=== PATIENT | male | born 1940 | race Caucasian/White ===

== ENCOUNTER 2018-02-15 04:30 | Emergency (ER) | payer MEDICARE, OTHER, SELFPAY ==
[2018-02-15 04:31] VITALS: BP 185/86; PULSE 69; RESP 18; TEMP 36.7; O2SAT 99; BMI 37.3
--- NOTE | 2018-02-15 04:42 | CT_ITS ---
STUDY: CT BRAIN WITHOUT CONTRAST REASON FOR EXAM: Male, 78 years old. Fall, head laceration. RADIATION DOSAGE (If Supplied By Facility): CTDIvol = ( 44.99 ) mGy, DLP = ( 745.49 ) mGycm TECHNIQUE: Transaxial CT imaging of the brain was performed without administration of intravenous contrast material. Individualized dose optimization techniques were used for this CT. COMPARISON: None. FINDINGS: Moderate left frontal scalp hematoma. Normal calvarium. Normal size ventricles and extra-axial spaces for the patient's age. Normal white matter tracts of the cerebral hemispheres. Normal basal ganglia and thalami. Normal brainstem. Normal cerebellum. There is no intracranial hemorrhage. There are no findings of an acute ischemic infarction. Normal visualized paranasal sinuses. Atherosclerotic calcification of the supraclinoid portion of the internal carotid arteries. CT/Brain/Head without Contrast IMPRESSION: No acute intracranial abnormality. Left frontal scalp hematoma. Electronically Signed: Giovanny Moody MD at 5:38 EDT , Service support ,
--- NOTE | 2018-02-15 06:04 | ED.VISSUMM ---
- ER Visit Summary Date of Service: 02/15/18 Chief Complaint: [] Scalp laceration History of Present Illness: The patient is a 78 M [] patient reportedly had a fall just prior to arrival. He denies dizziness. Reports he just lost my balance. Denies neck pain, back pain, pelvic pain. Denies extremity pain. Denies headache. 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 He has a history of end-stage renal disease on dialysis. Physical Examination: [] Afebrile, vital signs stable. 78-year-old male in no acute distress. Conversational. Examination of the head reveals a 4 cm full-thickness scalp laceration. To the left temporoparietal scalp there was a 2 cm skin avulsion that did not require repair. Neck was nontender on exam in the midline. No paraspinal tenderness. Good range of motion on exam. Back exam was negative. Cardiovascular exam was regular rate and rhythm. Lungs are clear to auscultation. Abdomen was soft nontender. Pelvis was stable. Test Results: [] CT of the head was negative. Emergency Department Course and Treatment: [] After CT head returned negative patient had the area cleaned with saline and Shur-Clens. Anesthetized locally 1% lidocaine. 6 gail were used to approximate the wound nicely. Patient tolerated the procedure well. Patient and patient's at the bedside were instructed to have gail removed in 5 days. Treatment Plan: [] Follow-up with PCP or emergency department in 5 days for staple removal. Disposition: [] Discharge, stable. Impression: [] 4 cm scalp laceration Scalp laceration staple repair by ED physician This note was generated with [employer] dictation software. It may contain incorrect words, spelling, and punctuation that were not noted in review of the chart prior to signing ED Disposition - Plan for ED Patient: Chief Complaint: Fall Referrals: Dona Santiago MD [Primary Care Provider] -
--- NOTE | 2018-02-15 06:08 | ED.DEP ---
ED Disposition - Plan for ED Patient: Disposition: Home or Assisted Living Chief Complaint: Fall Instructions: ED Prevention Fall, ED Laceration Scalp Sutr Stap Ch Referrals: Dona Santiago MD [Primary Care Provider] -
--- NOTE | 2018-02-15 06:31 | NURSING ---
wound was dressed with surgicel, nonstick, noncling wrap, aron wrap to control bleeding.
[2018-02-15 06:36] VITALS: BP 171/82; PULSE 87; RESP 18; O2SAT 96
== END 2018-02-15 06:37 | disposition home or self-care (01) ==
PROVIDERS: Emergency Provider Emergency Medicine; Family Provider Internal Medicine; PCP Internal Medicine
DX: S01.01XA Laceration without foreign body of scalp, initial encounter (principal); I12.0 Hypertensive chronic kidney disease with stage 5 chronic kidney disease or end stage renal disease; N18.6 End stage renal disease; Z99.2 Dependence on renal dialysis; Z86.711 Personal history of pulmonary embolism; Z86.718 Personal history of other venous thrombosis and embolism; Z79.01 Long term (current) use of anticoagulants; Z79.891 Long term (current) use of opiate analgesic; Z79.899 Other long term (current) drug therapy; W18.30XA Fall on same level, unspecified, initial encounter; Y93.89 Activity, other specified; Y92.89 Other specified places as the place of occurrence of the external cause; Y99.8 Other external cause status
CPT/HCPCS: 12002; 70450; 99284; A4216

== ENCOUNTER 2018-02-26 07:25 | Day surgery (SDC) | payer MEDICARE, OTHER, SELFPAY ==
[2018-02-26 07:53] VITALS: BP 129/45; PULSE 52; RESP 16; TEMP 37.1; O2SAT 100; BMI 37.2
--- NOTE | 2018-02-26 09:25 | FOR_PTH ---
PATIENT: ANSLEY OLIVAS LOC: [facility] [place] U#:[id number] AGE/SX: 78/M ROOM: RE02/26/[address]: Dr. Aleks Moore MD : [id number] BED: DIS: 02/26/2018 SPEC #: [id number] RECD: 02/26/18 13:46 STATUS: RADHA CAMRYN #: [id number] CHEN: 02/26/18 09:[address]: Aleks Moore DEPT: SURGICAL PATHOLOGY RECD BY: Charles Escalera ENTERED: 02/26/18 13:46 SP TYPE: FORESKIN OTHR DR: Dr. Dona Santiago MD Tissues: Skin of foreskin, NOS Procedures: Surgery Specimen Level III HEADER OPERATION: Cysto, circumcision, urethral dilation PRE-OP DIAGNOSIS: Phimosis and urethral stricture TISSUE SUBMITTED: Foreskin MICROSCOPIC DIAGNOSIS Foreskin: A piece of skin with focal mild chronic inflammation. SJ:damian 03/01/18 MICROSCOPIC DESCRIPTION Slides are reviewed. GROSS DESCRIPTION Received in fixative is one container labeled with the patient's name and designated foreskin. The specimen consists of an irregular piece of fonseca, wrinkled skin measuring 4.5 x 2 x 0.3 cm. No mass lesion is identified. Precision Machinist sections are submitted in one cassette. / ANGEL:damian 02/26/18 TC:3 CPT: 28962
[2018-02-26] MEDS: Cefazolin 2 GM in 0.9% Normal Saline 100 ML IV (09:46)
--- NOTE | 2018-02-26 09:54 | PCM.DC.URO ---
Discharge Diet: Light diet - advance as tolerated Discharge Activity: May Not Drive Call your doctor if your incision/area has: Continuous Slow Oozing, Sudden Increased Bleeding, Increased Pain/ Swelling, Increased Redness, Foul Smelling Discharge, Swelling at the incision site Call your doctor if you observe: Fever of 101 or Higher Instructions: Adult Circumcision Additional Instructions: resume all medications. Allergies/Adverse Reactions: Allergies Sulfa (Sulfonamide Antibiotics) Allergy (Severe, Verified 02/26/18 07:51) Hives Medications to take at Discharge Sennosides/Docusate Sodium [Docusate Sodium-Senna Tablet] 1 ea PO PRN PRN 08/07/16 Amlodipine [Norvasc] 5 mg PO DAILY 08/26/16 Dicyclomine HCl 20 mg PO TID 10/23/16 Omeprazole [Prilosec] 40 mg PO DAILY 10/23/16 Tamsulosin HCl [Flomax] 0.4 mg PO DAILY 10/23/16 Oxycodone [Oxyir] 5 mg PO Q8H PRN PRN #7 tab 10/28/16 Metoprolol Tartrate [Lopressor (beta keila)] 50 mg PO BID tab 11/03/16 Furosemide [Lasix] 20 mg PO BIDLX 02/11/17 Ondansetron HCl [Zofran] 4 mg PO PRN PRN 02/11/17 Ciprofloxacin [Cipro] 250 mg PO DAILY #10 tab 02/26/18 Hydrocodone/Acetaminophen [Mcdermott 5-325 Tablet] 1 ea PO Q4H PRN PRN 7 Days #20 tab 02/26/18 The following prescriptions were given: Hydrocodone/Acetaminophen [Mcdermott 5-325 Tablet] 1 ea PO Q4H PRN PRN 7 Days #20 tab PRN Reason: Pain Ciprofloxacin [Cipro] 250 mg PO DAILY #10 tab Primary Care Physician: Dona Santiago MD [Primary Care Provider] - Please Follow Up With: Aleks Moore MD When: ThursdayMarch 09 at 11am.
[2018-02-26] MEDS: Bupivacaine Mpf 0.5% 30 ML VIAL (10:25)
--- NOTE | 2018-02-26 10:28 | PCM.OPRPT ---
Report of Operation Date of Procedure: 02/26/18 Pre-Operative Diagnosis: Phimosis and urethral stricture bulbar severe. Post-Operative Diagnosis: Same Surgery/Procedure Performed:: Circumcision, cystoscopy, dilation of urethral stricture and placement of a Pulido catheter Description of Surgical Findings:: 78-year-old male who is on chronic dialysis and has been found to have retention of urine chronically unable to empty his bladder and now is getting chronic infections in his bladder because of this we attempted a cystoscopy in the office was found to have a very severe phimosis of the foreskin and suspected urethral stricture disease. Because of this recommended we taken to surgery for do a circumcision cystoscopy and possible dilation of the urethral strictures and Uplido placement. 78-year-old male taken back to the operating room at the smooth induction of anesthesia he was placed supine on the table. The penis and testicles were prepped and draped in usual sterile fashion infiltrated the foreskin circumferentially with Marcaine with no epi. I then did a dorsal slit on the foreskin was able to then retract the foreskin over the head of the penis for use then Betadine to clean the pink penis and some smegma around the foreskin. I then excised the foreskin dorsally. We then reapproximated the shaft skin to the subcoronal skin with stitches using 3-0 Vicryls after 4 points were fixed we then ran the circumcision all the way around the penis to complete circumcision. Then at this point the meatus was checked very tight meatus with the dilate the meatus with sounds up to 26 [place]. I then did a cystoscopy found a very pinpoint severe bulbar urethral stricture passed a wire through this and then over the wire we dilated the stricture using the Bard urology kit we used the followers to dilate the stricture from 12 [place] up to 18 [place]. I then did a cystoscopy demonstrated the severe strictures in the bulbar urethra prostate was mildly obstructive a little bit of bleeding in the bladder no tumors or stones seen the bladder very distended bladder from chronic obstruction. Then over the wire I advanced a 16 [place] tip catheter but the catheter inside the bladder leave this in for about a week and a half he will see us back for follow-up after the circumcision dilation of the strictures and at that point will remove the catheter. He will continue with his Flomax. I have asked the patient and the family to hold his Coumadin to the catheter is removed. Type of Anesthesia:: Local MAC Drains: pulido - Admit VTE Documentation VTE Present on Admission: No VTE Mechan Device Prophylaxis: SCD's VTE Pharm Prophylaxis ordered?: No Reason prophylaxis not ordered:: Treatment Not Indicated
--- NOTE | 2018-02-26 10:32 | OP.PCM_ITS ---
Report of Operation Date of Procedure: 02/26/18 Pre-Operative Diagnosis: Phimosis and urethral stricture bulbar severe. Post-Operative Diagnosis: Same Surgery/Procedure Performed:: Circumcision, cystoscopy, dilation of urethral stricture and placement of a Pulido catheter Description of Surgical Findings:: 78-year-old male who is on chronic dialysis and has been found to have retention of urine chronically unable to empty his bladder and now is getting chronic infections in his bladder because of this we attempted a cystoscopy in the office was found to have a very severe phimosis of the foreskin and suspected urethral stricture disease. Because of this recommended we taken to surgery for do a circumcision cystoscopy and possible dilation of the urethral strictures and Pulido placement. 78-year-old male taken back to the operating room at the smooth induction of anesthesia he was placed supine on the table. The penis and testicles were prepped and draped in usual sterile fashion infiltrated the foreskin circumferentially with Marcaine with no epi. I then did a dorsal slit on the foreskin was able to then retract the foreskin over the head of the penis for use then Betadine to clean the pink penis and some smegma around the foreskin. I then excised the foreskin dorsally. We then reapproximated the shaft skin to the subcoronal skin with stitches using 3-0 Vicryls after 4 points were fixed we then ran the circumcision all the way around the penis to complete circumcision. Then at this point the meatus was checked very tight meatus with the dilate the meatus with sounds up to 26 [place]. I then did a cystoscopy found a very pinpoint severe bulbar urethral stricture passed a wire through this and then over the wire we dilated the stricture using the Bard urology kit we used the followers to dilate the stricture from 12 [place] up to 18 [place]. I then did a cystoscopy demonstrated the severe strictures in the bulbar urethra prostate was mildly obstructive a little bit of bleeding in the bladder no tumors or stones seen the bladder very distended bladder from chronic obstruction. Then over the wire I advanced a 16 [place] tip catheter but the catheter inside the bladder leave this in for about a week and a half he will see us back for follow-up after the circumcision dilation of the strictures and at that point will remove the catheter. He will continue with his Flomax. I have asked the patient and the family to hold his Coumadin to the catheter is removed. Type of Anesthesia:: Local MAC Drains: pulido - Admit VTE Documentation VTE Present on Admission: No VTE Mechan Device Prophylaxis: SCD's VTE Pharm Prophylaxis ordered?: No Reason prophylaxis not ordered:: Treatment Not Indicated
[2018-02-26 10:40] VITALS: BP 120/50; BP 129/45; PULSE 68; RESP 16; TEMP 36.4; O2SAT 95
[2018-02-26 10:45] VITALS: BP 123/56; BP 129/45; PULSE 61; RESP 16; O2SAT 93
[2018-02-26 10:50] VITALS: BP 126/70; BP 129/45; PULSE 61; RESP 16; O2SAT 94
[2018-02-26 10:55] VITALS: BP 129/45; BP 149/64; PULSE 57; RESP 16; TEMP 36.6; O2SAT 98
[2018-02-26 11:49] VITALS: BP 129/45
== END 2018-02-26 11:51 | disposition home or self-care (01) ==
LOC: SDC 07:26 → AC 07:27
PROVIDERS: Family Provider Internal Medicine; PCP Internal Medicine; Visit Provider Urology
PROC: 0TJB8ZZ Inspection of Bladder, Via Natural or Artificial Opening Endoscopic (ICD-10-PCS; CPT 52000; principal; 2018-02-26 09:10)
DX: N48.29 Other inflammatory disorders of penis (principal); N47.1 Phimosis; N35.8 Other urethral stricture; N40.1 Benign prostatic hyperplasia with lower urinary tract symptoms; R33.8 Other retention of urine; I12.0 Hypertensive chronic kidney disease with stage 5 chronic kidney disease or end stage renal disease; N18.6 End stage renal disease; D64.9 Anemia, unspecified; K21.9 Gastro-esophageal reflux disease without esophagitis; B19.20 Unspecified viral hepatitis C without hepatic coma; Z99.2 Dependence on renal dialysis; Z86.718 Personal history of other venous thrombosis and embolism; Z87.891 Personal history of nicotine dependence; Z85.828 Personal history of other malignant neoplasm of skin; Z79.01 Long term (current) use of anticoagulants; Z79.899 Other long term (current) drug therapy
CPT/HCPCS: 52281; 54161; 88304; J7040; J7120; C1769; J2405

== ENCOUNTER → 2018-03-16 10:32 | Outpatient (CLI) | payer MEDICARE, OTHER, SELFPAY | PROVIDERS: Family Provider Internal Medicine; PCP Internal Medicine; Visit Provider Urology | DX: N39.0 Urinary tract infection, site not specified (principal) | CPT/HCPCS: 87086; 87088 ==

== ENCOUNTER → 2018-03-30 12:49 | Outpatient (CLI) | payer MEDICARE, OTHER, SELFPAY | PROVIDERS: Family Provider Internal Medicine; PCP Internal Medicine; Visit Provider Nurse Practitioner Adult Health | DX: R82.90 Unspecified abnormal findings in urine (principal) | CPT/HCPCS: 87077; 87086; 87088; 87186 ==

== ENCOUNTER 2018-05-25 16:01 | Observation (INO) | payer MEDICARE, OTHER, SELFPAY ==
[2018-05-25] VITALS (11 sets, daily range): BP systolic 142–159; BP diastolic 60–85; PULSE 62–70; RESP 14–95; TEMP 36.9–37.2; O2SAT 13–98; BMI 43.3; BMI 35.9
--- NOTE | 2018-05-25 16:05 | EKG12_ITS ---
Test Reason : FALL Blood Pressure : / mmHG Vent. Rate : 066 BPM Atrial Rate : 066 BPM P-R Int : 164 ms QRS Dur : 076 ms QT Int : 418 ms P-R-T Axes : -02 -14 020 degrees QTc Int : 438 ms Normal sinus rhythm with sinus arrhythmia Normal ECG Confirmed by LARRY PUCKETT, RAYRAY ([id number]), editor managing director JAMEEL PENG ([id number]) on 05/27/2018 1:53:50 PM Referred By: MEGAN Confirmed By:RAYRAY JUAREZ MD
--- NOTE | 2018-05-25 16:05 | CT_ITS ---
STUDY: CT BRAIN WITHOUT CONTRAST REASON FOR EXAM: Male, 78 years old. Stroke. Difficulty walking. RADIATION DOSAGE (If Supplied By Facility): CTDIvol = ( 44.99 ) mGy, DLP = ( 745.49 ) mGycm TECHNIQUE: Transaxial CT imaging of the brain was performed without administration of intravenous contrast material. Individualized dose optimization techniques were used for this CT. COMPARISON: February 15, 2018. FINDINGS: Normal soft tissue structures. Normal calvarium. There is mild cerebral atrophy with widening of the extra-axial spaces and ventricular dilatation. There are areas of decreased attenuation within the white matter tracts of the supratentorial brain, consistent with microvascular disease changes. There is a small remote lacunar infarct in the right external capsule. Normal left basal ganglia and bilateral thalami. Normal brainstem. Normal cerebellum. There is no intracranial hemorrhage. There are no findings of an acute ischemic infarction. Normal visualized paranasal sinuses. CT/Brain/Head without Contrast IMPRESSION: Chronic involutional changes without evidence of acute intracranial or calvarial abnormality. There is no significant interval change. There is strong concern for stroke, MRI is recommended. Electronically Signed: Sid Hernandez DO at 17:19 EDT Tel [phone], Service support ,
--- NOTE | 2018-05-25 16:10 | ED.DCSUM_ITS ---
- ER Visit Summary Date of Service: 05/25/18 Chief Complaint: Weakness History of Present Illness: The patient is a 78 M with generalized weakness that started gradually this morning. He was having increasing difficulty moving and walking, and his noted he continued to get worse throughout the day. She had to help him to the ground when he almost fell, just prior to arrival. She also noted that he was having trouble expressing himself through speech. No slurred speech. No vision changes. No facial droop. No unilateral weakness or numbness. No history of this before. He has a history of end-stage renal disease and is on hemodialysis. He is a former smoker. Physical Examination: Afebrile and vital signs unremarkable. Head and neck atraumatic. HEENT exam on room equal. Neck nontender. Heart regular. Lungs clear. Abdomen soft. Skin slightly pale. NIH stroke scale is 0. Test Results: EKG, chest x-ray, CT brain, labs, urinalysis pending. Emergency Department Course and Treatment: Patient does not meet criteria for stroke team or TPA. The generalized weakness could be a result of multiple etiologies. He does not appear to have any trauma. Workup showed pancytopenia. This is not new. Creatinine 3.52. Coags normal. Troponin normal. Chest x-ray showed no acute findings. CT head showed chronic changes. Patient had no change or deterioration in the emergency department. He is unable to walk secondary to generalized weakness. Per his , he had trouble finding words and expressing himself. I am unsure if this was truly expressive aphasia. He had no other stroke symptoms or findings. Patient was discussed with the hospitalist and will be admitted. Treatment Plan: As above Disposition: Admission Impression: 1. Generalized weakness 2. Expressive aphasia, resolved This note was generated with [employer] dictation software. It may contain incorrect words, spelling, and punctuation that were not noted in review of the chart prior to signing ED Disposition - Plan for ED Patient: Chief Complaint: Fall Referrals: Dona Santiago MD [Primary Care Provider] -
--- NOTE | 2018-05-25 16:25 | RAD_ITS ---
STUDY: X-RAY CHEST REASON FOR EXAM: Male, 78 years old. Stroke. TECHNIQUE: Single AP portable view of the chest. COMPARISON: January 06, 2017. FINDINGS: The right jugular hemodialysis catheter, present on the prior study is no longer present. There is a mildly improved inspiratory effort when compared to prior study. There is no evidence of acute infiltrate or mass. There is no demonstrated pleural abnormality. Normal size heart. Normal mediastinum and marcia. Normal visualized pulmonary arteries. Normal visualized aortic arch and descending thoracic aorta. The thoracic spine is obscured by the mediastinum. There is degenerative osteoarthritis of the bilateral shoulders. There is no demonstrated abnormality of the visualized soft tissue structures of the upper abdomen. RAD/Chest 1 View IMPRESSION: 1. No evidence of acute cardiopulmonary disease. There is resolution of the vascular congestion seen in the prior study. 2. Removal of the right jugular hemodialysis catheter since the previous examination. Electronically Signed: Sid Hernandez DO at 16:40 EDT Tel [phone], Service support ,
[2018-05-25 17:00] LABS: Bedside Glucose 116 mg/dL (70-110)
[2018-05-25 17:37] LABS: Absolute Lymphocyte Count 0.81 X10^3/ul (0.83-4.51); Absolute Neutrophil Count 2.1 X10^3/uL (2.0-7.7); Basophil# 0.01 X10^3/uL; Basophil% 0.3 % (0-1); Eosinophil# 0.07 X10^3/uL; Eosinophils% 2.1 % (0-5); Hematocrit 34.8 % (40-54); Hemoglobin 10.7 g/dl (13.0-16.5); Lymphocyte # 0.81 X10^3/ul (4.0); Mean Corp Hgb Conc 30.7 g/gl (32-36); Mean Corpuscular Hgb 28.4 pg (27.0-32.0); Mean Corpuscular Volume 92.3 fL (80-94); Monocyte# 0.42 X10^3/uL; Monocyte% 12.4 % (0-10); Neutrophil # 2.07 X10^3/uL (2.7-7.7); Neutrophil % 61.2 % (47-70); Platelet Count 102 K/mm3 (150-450); RBC Distribution Width CV 15.5 % (11.6-14.6); RBC Distribution Width SD 52.5 fl (35.1-43.9); Red Blood Count 3.77 M/mm3 (4.6-6.2); White Blood Count 3.4 K/mm3 (4.4-11.0)
[2018-05-25 17:44] LABS: POSITIVE COUNT NO; POSITIVE DIFFERENTIAL NO; POSITIVE MORPHOLOGY NO
[2018-05-25 17:45] LABS: Anion Gap 8 (5-15); BUN 15 mg/dL (7-18); BUN/Creat Ratio 4.3 RATIO (10-20); Calcium,Total 9.8 mg/dL (8.5-10.1); Chloride 101 mmol/L (98-107); Creatinine, Serum 3.52 mg/dL (0.70-1.30); EST Glomerular Filtration Rate 18 mL/min (>60); Est Glom Filt Rate - Afr Amer 22 mL/min (>60); Estimated Creatinine Clearance 12.59 ml/min; Glucose 118 mg/dL (74-106); Potassium 3.8 mmol/L (3.5-5.1); Sodium Level 138 mmol/L (136-145)
[2018-05-25 17:47] LABS: International Normalized Ratio 1.2
[2018-05-25 17:48] LABS: Partial Thromboplast Time 29.6 Seconds (24.1-36.2)
--- NOTE | 2018-05-25 19:54 | NURSING ---
Called ER district captain Erica at this time to inform that PCU is ready for admission at 1953
--- NOTE | 2018-05-25 20:09 | NURSING ---
STRAIGHT CATH ATTEMPTED; UNABLE TO PASS PROSTATE. PT IS ON DIALYSIS AND URINATED PRIOR TO ED ARRIVAL.
--- NOTE | 2018-05-25 20:34 | PCM.HP.STD ---
Problem List (1) Generalized weakness Status: Acute (2) Recurrent falls Status: Acute (3) Transient expressive aphasia Status: Acute (4) ESRD (end stage renal disease) Status: Acute (5) DVT of bilateral internal jugular veins Status: Acute (6) Morbid obesity Status: Chronic (7) Chronic renal disease, stage IV Status: Chronic (8) Benign prostatic hypertrophy Status: Chronic (9) Hypertension Status: Chronic (10) Nephrotic syndrome Status: Chronic History of Present Illness Date of Admission: 05/25/18 Chief Complaint: Fall and expresses aphasia The patient is a 78 year old M with multiple comorbidities as mentioned above including ESRD on hemodialysis, Thursday, and Thursday by Dr. Cabrera was brought into ER by EMS for generalized weakness, fall and transient aphasia as per the . He was trying to go to bathroom but he slid on walker and supported by on the floor. He was not able to lift his legs. At that time, was not able to express himself but was able to hear as per the . he denies headache, loss of vision, difficulty in writing or reading but had transient blurring of vision. Denies any previous history of GA, stroke, or chronic lung disease. [] In ED, his vitals were stable. EKG shows normal sinus rhythm at 66 bpm with sinus arrhythmia. Previous EKG of November 2016 was similar with PVCs and PACs. In ED, CT had does not show acute change. Chest x-ray no evidence of acute cardiopulmonary disease. Past Medical History Past Medical History (Chronic Problems): Chronic Problems Morbid obesity (Chronic) Chronic renal disease, stage IV (Chronic) Benign prostatic hypertrophy (Chronic) Hypertension (Chronic) Nephrotic syndrome (Chronic) Medical History: Medical History ESRD (end stage renal disease) (Acute) N18.6 DVT of bilateral internal jugular veins (Acute) Morbid obesity (Chronic) E66.01 Chronic renal disease, stage IV (Chronic) N18.4 Benign prostatic hypertrophy (Chronic) N40.0 Hypertension (Chronic) I10 Nephrotic syndrome (Chronic) N04.9 Allergies Sulfa (Sulfonamide Antibiotics) Allergy (Severe, Verified 02/26/18 07:51) Hives Home Medications: Ambulatory Orders Medication Instructions Recorded Sennosides/Docusate Sodium 1 ea PO PRN PRN 08/07/16 [Docusate Sodium-Senna Tablet] Dicyclomine HCl 20 mg PO TIDCM 10/23/16 Omeprazole [Prilosec] 20 mg PO DAILY 10/23/16 Tamsulosin HCl [Flomax] 0.4 mg PO BID 10/23/16 Oxycodone [Oxyir] 5 mg PO Q8H PRN PRN #7 tab 10/28/16 Metoprolol Tartrate [Lopressor 50 mg PO BID tab 11/03/16 (beta keila)] Surgical History: Surgical History (Last Updated 02/23/18 @ 15:41 by Kati Dorsey) Presence of surgically created arteriovenous shunt for hemodialysis Z99.2 LUE Surgical History: colectomy - bowel obstruction-remote Smoking Status: Former smoker - *Family History Maternal History Items: No pertinent history Paternal History Items: No pertinent history Review of Systems Constitutional: Denies: Chills, Fever, Weight Change HEENT: Denies: Head Aches, Sinus Congestion, Sinus Drainage Cardiovascular: Denies: Chest Pain, Palpitations Respiratory: Denies: Cough, Shortness of breath at rest, Sputum production Gastrointestinal: Denies: Abdominal Pain, Nausea, Vomiting Genitourinary: Denies: Dysuria Musculoskeletal: Denies: Joint Pain, Joint Tenderness Skin: Denies: Rash, Wounds Neurological: Reports: Balance problems, Blurred vision, Change in Speech, Confusion, Incoordination. Denies: Focal weakness, Numbness, Tingling Psychiatric: Denies: Anxiety, Depression, Homicidal Ideations, Suicidal Ideations Hematologic/ Lymphatic: Denies: Easy Bruising, Easy Bleeding VTE Information - Inpt Only VTE Present on Admission: No VTE Mechan Device Prophylaxis: SCD's VTE Pharm Prophylaxis ordered?: Yes Patient Problems: Active and Suspected Problems Generalized weakness (Acute) Recurrent falls (Acute) Transient expressive aphasia (Acute) - Physical Exam General: Alert, Oriented x3, Cooperative HEENT: Atraumatic, PERRLA, EOMI, Normocephalic Neck: Supple, No JVD, Negative Carotid Bruits Lungs: Clear to auscultation, Normal air movement Cardiovascular: Regular rate, Normal S1, Normal S2, No murmurs Abdomen: Bowel Sounds Present, Soft, Non Tender, Non-Distended Extremities: No edema, Capillary Refill Less than 3 Seconds Skin: No rashes, No breakdown Musculoskeletal: No Tenderness to Palpation of Joints or Extremities, Arthritic Changes Neurological: Cranial nerves II-XII grossly intact, - - Muscle strength 4 x 5 in both lower extremities. NIH stroke scale 2, slight weakness in both lower extremities. No facial droop. No dysarthria or aphasia. Psych/Mental Status: Normal Affect, Appropriate Vital Signs Temp Pulse Resp BP Pulse Ox 99.0 F 63 18 148/68 H 95 05/25/18 16:02 05/25/18 20:00 05/25/18 20:00 05/25/18 20:00 05/25/18 20:00 Oxygen Delivery Method Room Air Weight: 229 lb 4.492 oz Body Mass Index (BMI) 43.3 Finger Stick Blood Glucose 116 Laboratory Tests Past 24 Hrs 05/25/18 05/25/18 05/25/18 16:40 16:40 16:40 WBC 3.4 L RBC 3.77 L Hgb 10.7 L Hct 34.8 L MCV 92.3 MCH 28.4 MCHC 30.7 L RDW 15.5 H RDW Differential 52.5 H Plt Count 102 L MPV 9.0 Immature Gran % (Auto) 0.000 Neut % (Auto) 61.2 Lymph % (Auto) 24.0 Walworth % (Auto) 12.4 H Eos % (Auto) 2.1 Baso % (Auto) 0.3 Absolute Neuts (auto) 2.1 Absolute Lymphs (auto) 0.81 L Total Counted Not Reportable PT 15.0 H INR 1.2 APTT 29.6 Sodium 138 Potassium 3.8 Chloride 101 Carbon Dioxide 29.0 Anion Gap 8 BUN 15 Creatinine 3.52 H Estim Creat Clear Calc 12.59 Est GFR (MDRD) Af Amer 22 L Est GFR (MDRD) Non-Af 18 L BUN/Creatinine Ratio 4.3 L Glucose 118 H Calcium 9.8 Troponin I < 0.015 POC Glucose 05/25/18 16:57 POC Glucose 116 H Assessment/Plan All Active Problems Generalized weakness (Acute) Recurrent falls (Acute) Transient expressive aphasia (Acute) ESRD (end stage renal disease) (Acute) DVT of bilateral internal jugular veins (Acute) he patient is a 78 year old M with multiple comorbidities as mentioned above including ESRD on hemodialysis, Thursday, and Thursday by Dr. Cabrera was brought into ER by EMS for generalized weakness, fall and transient aphasia as per the . He was trying to go to bathroom but he slid on walker and supported by on the floor. He was not able to lift his legs. At that time, was not able to express himself but was able to hear as per the . he denies headache, loss of vision, difficulty in writing or reading but had transient blurring of vision. Denies any previous history of GA, stroke, or chronic lung disease. [] In ED, his vitals were stable. EKG shows normal sinus rhythm at 66 bpm with sinus arrhythmia. Previous EKG of November 2016 was similar with PVCs and PACs. In ED, CT had does not show acute change. Chest x-ray no evidence of acute cardiopulmonary disease. 1. Generalized weakness, mainly bilateral lower extremity weakness and transient expressive aphasia, rule out TIA/stroke: Patient is being admitted on PCU. Stroke workup including MRI brain, carotid Doppler and echo ordered. PT, OT and speech evaluation. Neurology evaluation tomorrow a.m. If MRI is positive of a stroke, can have CT angiogram of head and neck but will need dialysis afterwards. BP and glucose control as per stroke guidelines. Currently controlled. CRP and A1c tomorrow a.m. 2. ESRD on hemodialysis, Thursday and Thursday. Electrolytes within normal limit. Can have outpatient dialysis as per schedule if he is discharged prior to . BMP tomorrow a.m. 3. Mild leukopenia, anemia of chronic disease probably due to ESRD and mild thrombocytopenia: Follow-up CBC tomorrow a.m. If hemoglobin or platelet count drops, discontinue heparin subcutaneous. Folic acid and B12 ordered. CBC ordered for tomorrow a.m. Hypertension, nephrotic syndrome leading to ESRD on hemodialysis, morbid obesity and history of DVT of bilateral internal jugular vein probably due to hemodialysis catheter in October 2016: Home medication reconciliation done. DVT prophylaxis: On heparin 5000 units subcu units twice daily, started from tomorrow a.m. and bilateral SCDs. This note was generated with [employer] dictation software. Every effort was made to ensure accuracy, however computerized nurse sane mistakes may persist. Laboratory Results 05/25/18 16:40: WBC 3.4 L, RBC 3.77 L, Hgb 10.7 L, Hct 34.8 L, MCV 92.3, MCH 28.4, MCHC 30.7 L, RDW 15.5 H, RDW Differential 52.5 H, Plt Count 102 L, MPV 9.0, Immature Gran % (Auto) 0.000, Neut % (Auto) 61.2, Lymph % (Auto) 24.0, Walworth % (Auto) 12.4 H, Eos % (Auto) 2.1, Baso % (Auto) 0.3, Absolute Neuts (auto) 2.1, Absolute Lymphs (auto) 0.81 L, Total Counted Not Reportable 05/25/18 16:40: PT 15.0 H, INR 1.2, APTT 29.6 05/25/18 16:40: Sodium 138, Potassium 3.8, Chloride 101, Carbon Dioxide 29.0, Anion Gap 8, BUN 15, Creatinine 3.52 H, Estim Creat Clear Calc 12.59, Est GFR (MDRD) Af Amer 22 L, Est GFR (MDRD) Non-Af 18 L, BUN/Creatinine Ratio 4.3 L, Glucose 118 H, Calcium 9.8, Troponin I < 0.015 05/25/18 16:57: POC Glucose 116 H Clinical Impression(s) from Imaging Studies Brain CT 05/25/18 16:05 IMPRESSION: Chronic involutional changes without evidence of acute intracranial or calvarial abnormality. There is no significant interval change. There is strong concern for stroke, MRI is recommended. Chest X-Ray 05/25/18 16:25 IMPRESSION: 1. No evidence of acute cardiopulmonary disease. There is resolution of the vascular congestion seen in the prior study. 2. Removal of the right jugular hemodialysis catheter since the previous examination. Code Visit Inpatient E&M: 02947 Init Hosp L3
--- NOTE | 2018-05-25 20:36 | MRI_ITS ---
STUDY: MRI BRAIN WITHOUT CONTRAST REASON FOR EXAM: Male, 78 years old. tia, generalized weakness. TECHNIQUE: Standardized multiplanar fat and water weighted pulse sequences were obtained. COMPARISON: None. FINDINGS: There is mild cerebral atrophy with widening of the extra-axial spaces and ventricular dilatation. There are multiple white matter hyperintensities, distributed throughout the deep white matter tracts of the cerebral hemispheres, consistent with moderate chronic white matter ischemic changes. Normal bilateral basal ganglia. Normal thalami. There is no extra-axial fluid accumulation. Normal flow voids within the major intracranial circulation suggesting patency by spin echo criteria. Normal sella turcica, pituitary gland, infundibular stalk, optic chiasm and hypothalamus. Normal tectal plate and pineal gland. Normal midbrain, rico and medulla. Normal cerebellum. Normal basal cisterns. There is bilateral mastoid fluid. MRI/Brain without Contrast IMPRESSION: No acute intracranial abnormality. Moderate involutional changes. Electronically Signed: Cleo Flores MD at 11:38 EDT Tel , Service support ,
--- NOTE | 2018-05-25 20:50 | HP.PCM_ITS ---
Problem List (1) Generalized weakness Status: Acute (2) Recurrent falls Status: Acute (3) Transient expressive aphasia Status: Acute (4) ESRD (end stage renal disease) Status: Acute (5) DVT of bilateral internal jugular veins Status: Acute (6) Morbid obesity Status: Chronic (7) Chronic renal disease, stage IV Status: Chronic (8) Benign prostatic hypertrophy Status: Chronic (9) Hypertension Status: Chronic (10) Nephrotic syndrome Status: Chronic History of Present Illness Date of Admission: 05/25/18 Chief Complaint: Fall and expresses aphasia The patient is a 78 year old M with multiple comorbidities as mentioned above including ESRD on hemodialysis, Thursday, and Thursday by Dr. Cabrera was brought into ER by EMS for generalized weakness, fall and transient aphasia as per the . He was trying to go to bathroom but he slid on walker and supported by on the floor. He was not able to lift his legs. At that time , was not able to express himself but was able to hear as per the . he denies headache, loss of vision, difficulty in writing or reading but had transient blurring of vision. Denies any previous history of NV, stroke, or chronic lung disease. [] In ED, his vitals were stable. EKG shows normal sinus rhythm at 66 bpm with sinus arrhythmia. Previous EKG of November 2016 was similar with PVCs and PACs. In ED, CT had does not show acute change. Chest x-ray no evidence of acute cardiopulmonary disease. Past Medical History Past Medical History (Chronic Problems): Chronic Problems Morbid obesity (Chronic) Chronic renal disease, stage IV (Chronic) Benign prostatic hypertrophy (Chronic) Hypertension (Chronic) Nephrotic syndrome (Chronic) Medical History: Medical History ESRD (end stage renal disease) (Acute) N18.6 DVT of bilateral internal jugular veins (Acute) Morbid obesity (Chronic) E66.01 Chronic renal disease, stage IV (Chronic) N18.4 Benign prostatic hypertrophy (Chronic) N40.0 Hypertension (Chronic) I10 Nephrotic syndrome (Chronic) N04.9 Allergies Sulfa (Sulfonamide Antibiotics) Allergy (Severe, Verified 02/26/18 07:51) Hives Home Medications: Ambulatory Orders Medication Instructions Recorded Sennosides/Docusate Sodium 1 ea PO PRN PRN 08/07/16 [Docusate Sodium-Senna Tablet] Dicyclomine HCl 20 mg PO TIDCM 10/23/16 Omeprazole [Prilosec] 20 mg PO DAILY 10/23/16 Tamsulosin HCl [Flomax] 0.4 mg PO BID 10/23/16 Oxycodone [Oxyir] 5 mg PO Q8H PRN PRN #7 tab 10/28/16 Metoprolol Tartrate [Lopressor 50 mg PO BID tab 11/03/16 (beta keila)] Surgical History: Surgical History (Last Updated 02/23/18 @ 15:41 by Kati Dorsey) Presence of surgically created arteriovenous shunt for hemodialysis Z99.2 LUE Surgical History: colectomy - bowel obstruction-remote Smoking Status: Former smoker - *Family History Maternal History Items: No pertinent history Paternal History Items: No pertinent history Review of Systems Constitutional: Denies: Chills, Fever, Weight Change HEENT: Denies: Head Aches, Sinus Congestion, Sinus Drainage Cardiovascular: Denies: Chest Pain, Palpitations Respiratory: Denies: Cough, Shortness of breath at rest, Sputum production Gastrointestinal: Denies: Abdominal Pain, Nausea, Vomiting Genitourinary: Denies: Dysuria Musculoskeletal: Denies: Joint Pain, Joint Tenderness Skin: Denies: Rash, Wounds Neurological: Reports: Balance problems, Blurred vision, Change in Speech, Confusion, Incoordination. Denies: Focal weakness, Numbness, Tingling Psychiatric: Denies: Anxiety, Depression, Homicidal Ideations, Suicidal Ideations Hematologic/ Lymphatic: Denies: Easy Bruising, Easy Bleeding VTE Information - Inpt Only VTE Present on Admission: No VTE Mechan Device Prophylaxis: SCD's VTE Pharm Prophylaxis ordered?: Yes Patient Problems: Active and Suspected Problems Generalized weakness (Acute) Recurrent falls (Acute) Transient expressive aphasia (Acute) - Physical Exam General: Alert, Oriented x3, Cooperative HEENT: Atraumatic, PERRLA, EOMI, Normocephalic Neck: Supple, No JVD, Negative Carotid Bruits Lungs: Clear to auscultation, Normal air movement Cardiovascular: Regular rate, Normal S1, Normal S2, No murmurs Abdomen: Bowel Sounds Present, Soft, Non Tender, Non-Distended Extremities: No edema, Capillary Refill Less than 3 Seconds Skin: No rashes, No breakdown Musculoskeletal: No Tenderness to Palpation of Joints or Extremities, Arthritic Changes Neurological: Cranial nerves II-XII grossly intact, - - Muscle strength 4 x 5 in both lower extremities. NIH stroke scale 2, slight weakness in both lower extremities. No facial droop. No dysarthria or aphasia. Psych/Mental Status: Normal Affect, Appropriate Vital Signs Temp Pulse Resp BP Pulse Ox 99.0 F 63 18 148/68 H 95 05/25/18 16:02 05/25/18 20:00 05/25/18 20:00 05/25/18 20:00 05/25/18 20:00 Oxygen Delivery Method Room Air Weight: 229 lb 4.492 oz Body Mass Index (BMI) 43.3 Finger Stick Blood Glucose 116 Laboratory Tests Past 24 Hrs 05/25/18 05/25/18 05/25/18 16:40 16:40 16:40 WBC 3.4 L RBC 3.77 L Hgb 10.7 L Hct 34.8 L MCV 92.3 MCH 28.4 MCHC 30.7 L RDW 15.5 H RDW Differential 52.5 H Plt Count 102 L MPV 9.0 Immature Gran % (Auto) 0.000 Neut % (Auto) 61.2 Lymph % (Auto) 24.0 Norman % (Auto) 12.4 H Eos % (Auto) 2.1 Baso % (Auto) 0.3 Absolute Neuts (auto) 2.1 Absolute Lymphs (auto) 0.81 L Total Counted Not Reportable PT 15.0 H INR 1.2 APTT 29.6 Sodium 138 Potassium 3.8 Chloride 101 Carbon Dioxide 29.0 Anion Gap 8 BUN 15 Creatinine 3.52 H Estim Creat Clear Calc 12.59 Est GFR (MDRD) Af Amer 22 L Est GFR (MDRD) Non-Af 18 L BUN/Creatinine Ratio 4.3 L Glucose 118 H Calcium 9.8 Troponin I < 0.015 POC Glucose 05/25/18 16:57 POC Glucose 116 H Assessment/Plan All Active Problems Generalized weakness (Acute) Recurrent falls (Acute) Transient expressive aphasia (Acute) ESRD (end stage renal disease) (Acute) DVT of bilateral internal jugular veins (Acute) he patient is a 78 year old M with multiple comorbidities as mentioned above including ESRD on hemodialysis, Thursday, and Thursday by Dr. Cabrera was brought into ER by EMS for generalized weakness, fall and transient aphasia as per the . He was trying to go to bathroom but he slid on walker and supported by on the floor. He was not able to lift his legs. At that time , was not able to express himself but was able to hear as per the . he denies headache, loss of vision, difficulty in writing or reading but had transient blurring of vision. Denies any previous history of NV, stroke, or chronic lung disease. [] In ED, his vitals were stable. EKG shows normal sinus rhythm at 66 bpm with sinus arrhythmia. Previous EKG of November 2016 was similar with PVCs and PACs. In ED, CT had does not show acute change. Chest x-ray no evidence of acute cardiopulmonary disease. 1. Generalized weakness, mainly bilateral lower extremity weakness and transient expressive aphasia, rule out TIA/stroke: Patient is being admitted on PCU. Stroke workup including MRI brain, carotid Doppler and echo ordered. PT, OT and speech evaluation. Neurology evaluation tomorrow a.m. If MRI is positive of a stroke, can have CT angiogram of head and neck but will need dialysis afterwards. BP and glucose control as per stroke guidelines. Currently controlled. CRP and A1c tomorrow a.m. 2. ESRD on hemodialysis, Thursday and Thursday. Electrolytes within normal limit. Can have outpatient dialysis as per schedule if he is discharged prior to . BMP tomorrow a.m. 3. Mild leukopenia, anemia of chronic disease probably due to ESRD and mild thrombocytopenia: Follow-up CBC tomorrow a.m. If hemoglobin or platelet count drops, discontinue heparin subcutaneous. Folic acid and B12 ordered. CBC ordered for tomorrow a.m. Hypertension, nephrotic syndrome leading to ESRD on hemodialysis, morbid obesity and history of DVT of bilateral internal jugular vein probably due to hemodialysis catheter in October 2016: Home medication reconciliation done. DVT prophylaxis: On heparin 5000 units subcu units twice daily, started from tomorrow a.m. and bilateral SCDs. This note was generated with Zuldi dictation software. Every effort was made to ensure accuracy, however computerized manager commercial real estate mistakes may persist. Laboratory Results 05/25/18 16:40: WBC 3.4 L, RBC 3.77 L, Hgb 10.7 L, Hct 34.8 L, MCV 92.3, MCH 28.4, MCHC 30.7 L, RDW 15.5 H, RDW Differential 52.5 H, Plt Count 102 L, MPV 9.0 , Immature Gran % (Auto) 0.000, Neut % (Auto) 61.2, Lymph % (Auto) 24.0, Norman % (Auto) 12.4 H, Eos % (Auto) 2.1, Baso % (Auto) 0.3, Absolute Neuts (auto) 2.1, Absolute Lymphs (auto) 0.81 L, Total Counted Not Reportable 05/25/18 16:40: PT 15.0 H, INR 1.2, APTT 29.6 05/25/18 16:40: Sodium 138, Potassium 3.8, Chloride 101, Carbon Dioxide 29.0, Anion Gap 8, BUN 15, Creatinine 3.52 H, Estim Creat Clear Calc 12.59, Est GFR ( MDRD) Af Amer 22 L, Est GFR (MDRD) Non-Af 18 L, BUN/Creatinine Ratio 4.3 L, Glucose 118 H, Calcium 9.8, Troponin I < 0.015 05/25/18 16:57: POC Glucose 116 H Clinical Impression(s) from Imaging Studies Brain CT 05/25/18 16:05 IMPRESSION: Chronic involutional changes without evidence of acute intracranial or calvarial abnormality. There is no significant interval change. There is strong concern for stroke, MRI is recommended. Chest X-Ray 05/25/18 16:25 IMPRESSION: 1. No evidence of acute cardiopulmonary disease. There is resolution of the vascular congestion seen in the prior study. 2. Removal of the right jugular hemodialysis catheter since the previous examination. Code Visit Inpatient E&M: 53871 Init Hosp L3
[2018-05-25] MEDS: Aspirin 325 MG Tablet PO (20:55)
[2018-05-25 22:17] LABS: AST(SGOT) 62 U/L (15-37); Alanine Aminotransfer ALT/SGPT 74 U/L (16-61); Albumin, Serum 2.4 g/dL (3.2-5.0); Alkaline Phosphatase 126 U/L (45-117); Bilirubin, Direct 0.37 mg/dL (0.00-0.30); Globulin 4.1 g/dL (2.2-4.2); Protein, Total 6.5 g/dL (6.4-8.2); Thyroid Stim Hormone (TSH) 2.84 uIU/mL (0.358-3.74)
[2018-05-25] MEDS: Famotidine 20 MG Tablet PO (23:11)
[2018-05-25] MEDS: Metoprolol Tartrate 50 MG Tablet PO (23:11)
[2018-05-25] MEDS: Tamsulosin HCl 0.4 MG Capsule PO (23:11)
[2018-05-25 23:20] LABS: Bedside Glucose 98 mg/dL (70-110)
[2018-05-26] VITALS (10 sets, daily range): BP systolic 120–156; BP diastolic 59–70; PULSE 51–59; RESP 18–20; TEMP 36.5–36.9; O2SAT 95–99; BMI 35.9
[2018-05-26 04:50] LABS: Mucous, Urine 0 SEEN /hpf (<or=2+)
--- NOTE | 2018-05-26 05:55 | CDU_ITS ---
Reason For Study: TIA Rt. Velocities/BP Lt. Velocities/BP Prox CCA 70.9/12.9 cm/sec. Prox CCA 70.9/10.0 cm/sec. Mid CCA 65.1/8.8 cm/sec. Mid CCA 65.1/14.1 cm/sec. Dist CCA 62.1/10.6 cm/sec. Dist CCA 58.0/11.1 cm/sec. Prox ICA 89.7/15.2 cm/sec. Prox ICA 62.7/12.9 cm/sec. Mid ICA 79.3/15.2 cm/sec. Mid ICA 68.6/16.4 cm/sec. Dist ICA 68.6/12.9 cm/sec. Dist ICA 117.0/24.0 cm/sec. Rt. ICA/CCA = 1.4. Lt. ICA/CCA = 1.8. Prox ECA 92.0/5.9 cm/sec. Prox ECA 73.3/6.5 cm/sec. Rt. Vert. 68.6/12.9 cm/sec. Lt. Vert. 50.4/11.7 cm/sec. Right Extracranial There is heterogeneous, smooth atherosclerotic plaque noted in the right common carotid artery. There is heterogeneous, irregular atherosclerotic plaque noted in the right internal carotid artery. The atherosclerotic plaque causes acoustic shadowing. There is heterogeneous, smooth atherosclerotic plaque noted in the right external carotid artery. Antegrade flow is noted in the right vertebral artery. Left Extracranial There is heterogeneous, irregular atherosclerotic plaque noted in the left common carotid artery. There is no significant atherosclerotic plaque noted in the left internal carotid artery. There is intimal thickening but no significant atherosclerotic plaque noted in the left external carotid artery. Antegrade flow is noted in the left vertebral artery. Procedure Carotid Duplex 80496. The study was technically difficult. Exam performed portable in patient room. Interpretation Summary Minimal irregular plague at the proximal right internal carotid with <50% stenosis. No significant plague at the proximal left internal carotid with <50% stenosis. Normal flow bilateral external carotids Patent and antegrade vertebrals bilaterally Ordering Physician: Artur Reddy Referring Physician: Dona Santiago M.D. Performed By: Kendra Aponte RVT
[2018-05-26 06:00] LABS: Hematocrit 32.7 % (40-54); Hemoglobin 10.5 g/dl (13.0-16.5); Mean Corp Hgb Conc 32.1 g/gl (32-36); Mean Corpuscular Hgb 29.8 pg (27.0-32.0); Mean Corpuscular Volume 92.9 fL (80-94); Platelet Count 99 K/mm3 (150-450); RBC Distribution Width CV 15.3 % (11.6-14.6); RBC Distribution Width SD 49.5 fl (35.1-43.9); Red Blood Count 3.52 M/mm3 (4.6-6.2); White Blood Count 3.2 K/mm3 (4.4-11.0)
[2018-05-26 06:07] LABS: Color, Urine Yellow (Yellow); Glucose, Dipstick Normal (Normal); Ketone-Dipstick Negative (Negative); Leukocyte Esterase-Dipstick 500 /ul (Negative); Nitrite-Dipstick Negative (Negative); Occult Blood-Urine 250 /ul (Negative); Protein-Dipstick 500 mg/dl (Negative); Urine Bilirubin Dipstick Negative (Negative); Urine Clarity Turbid (Clear); Urine Urobilinogen Normal (Normal)
[2018-05-26 06:09] LABS: Bacteria 1+ /hpf (None Seen); Red Blood Cells-Urine 0-5 SEEN /hpf (0-5); Squamous Epithelial Cells - UA 0-5 SEEN /hpf (0-5); White Blood Cells 50-100 SEEN /hpf (0-5)
[2018-05-26 06:09] LABS: Scan Indicated on CBC? Y/N NO
[2018-05-26 06:29] LABS: Anion Gap 6 (5-15); BUN 19 mg/dL (7-18); BUN/Creat Ratio 5.1 RATIO (10-20); CRP 4.33 mg/L (0.0-3.0); Chloride 103 mmol/L (98-107); Cholesterol 81 mg/dL (200); Creatinine, Serum 3.72 mg/dL (0.70-1.30); EST Glomerular Filtration Rate 17 mL/min (>60); Est Glom Filt Rate - Afr Amer 20 mL/min (>60); Estimated Creatinine Clearance 11.91 ml/min; Glucose 87 mg/dL (74-106); High Density Lipoprotein 26 mg/dL; Potassium 3.7 mmol/L (3.5-5.1); Sodium Level 138 mmol/L (136-145); Triglycerides 81 mg/dL; Very Low Density Lipoprotein 16 mg/dL (5-40)
[2018-05-26 07:00] LABS: Bedside Glucose 88 mg/dL (70-110)
[2018-05-26 07:49] LABS: Hemoglobin A1c 4.2 % (4.2-6.3)
[2018-05-26] MEDS: Aspirin 325 MG Tablet PO (08:22)
[2018-05-26] MEDS: Dicyclomine 10 MG Capsule 20 MG PO ×2 (08:22→12:18)
[2018-05-26] MEDS: Glucerna Shake 120 ML LIQUID PO ×2 (08:22→12:18)
[2018-05-26 08:24] LABS: Vitamin B12 277 pg/mL (211-911)
--- NOTE | 2018-05-26 09:32 | CASEMGMT ---
SW stopped in to talk with patient. He said he had to use the restroom. SW assisted him with using call light. SW will check back with him a little later. Kaela TUCKER MSW
[2018-05-26] MEDS: Heparin Injection (Vial) 5,000 UNIT/ML VIAL 5000 UNIT SC (09:52)
[2018-05-26] MEDS: Tamsulosin HCl 0.4 MG Capsule PO (09:52)
[2018-05-26] MEDS: Famotidine 20 MG Tablet PO (09:53)
[2018-05-26] MEDS: Pantoprazole Sodium 20 MG Tablet PO (09:53)
[2018-05-26] MEDS: Atorvastatin Calcium 80 MG Tablet PO (09:53)
[2018-05-26] MEDS: Metoprolol Tartrate 50 MG Tablet PO (10:51)
[2018-05-26 11:35] LABS: Bedside Glucose 131 mg/dL (70-110)
--- NOTE | 2018-05-26 11:40 | NURSING ---
confirmed with , pt has dialysis MWF
--- NOTE | 2018-05-26 12:38 | CASEMGMT ---
CM INITIAL ASSESSMENT: Patient's is present. Patient agrees for to assist with interview. Home: Patient lives in a mobile home with his . There are four steps into the home, with railing present. HHS/Aides: Denies. states they do hire a cleaning lady. Patient's helps with all of his needs. Patient was a resident at [facility] last year and had home health afterwards. Patient is unsure which agency was used. They would prefer [facility], if home health is recommended. Patient states adamantly that he will not go to a detention, if recommended. DME: Patient uses a walker. He has a cane and wheelchair available as well. Home Oxygen: Denies home oxygen. Patient's states, He only wears oxygen during dialysis. [facility] Advance Directives: Yes, verified on e-chart. Patient's , Phyllis Mccullough, is medical POA. PCP: Dona Santiago Specialists: Dr. Cabrera, Dr. Moore Hemodialysis: [facility] on //. Patient's states the patient uses [facility] for transportation to and from dialysis. They privately pay for this service. Patient's takes him to his doctor appointments. DC Plan: Home. CM will follow for therapy recommendations regarding post-discharge needs. If home health therapy is recommended, patient would prefer to use [facility].
--- NOTE | 2018-05-26 14:12 | PCM.CONS.GEN ---
Problem List (1) Generalized weakness Status: Acute Reason for Consult Date of Consultation: 05/26/18 Reason for Consultation: AMS History of Present Illness: The patient is a 78 year old CM with PMH HTN, ESRD on HD, nephrotic syndrome, ? H/O Stroke, H/O DVT both Internal jugular vein, morbid obesity admitted with generalized weakness. History is obtained from patient and his as well as medical records. Per he was coming out of the bathroom yesterday (05/25/18), was walking very slowly with walker and slid down, had a fall, no LOC or head injury and then did not speak anything at all, started speaking again when the squad came per . Denies any COATES, visual disturbances, sensory loss or focal motor weakness. At present patient is not oriented to time, but per is almost back to his baseline, denies any neck pain, low back pain, denies frequent falls, per has fallen about twice in the last 6 months, does not drive and does need assistance for his activity of daily living. Per he was on Coumadin for DVT of internal jugular vein but was taken off by his senior php web developer about 2 months ago since he was bruising a lot, is not on ASA at baseline. MRI brain done on admission reported nothing acute. Labs reviewed: UA: turbid, LE -500 H, urine WBC-50-100, bacteria +1, AST/ALT 62/74 H, CRP-4.33, Na-138, K-3.7, creatinine-3.72, WBC-3.2, Plt count-99, Hb-10.5. Past Medical History Past Medical History (Chronic Problems): Chronic Problems Morbid obesity (Chronic) Chronic renal disease, stage IV (Chronic) Benign prostatic hypertrophy (Chronic) Hypertension (Chronic) Nephrotic syndrome (Chronic) Medical History: Medical History ESRD (end stage renal disease) (Acute) N18.6 DVT of bilateral internal jugular veins (Acute) Morbid obesity (Chronic) E66.01 Chronic renal disease, stage IV (Chronic) N18.4 Benign prostatic hypertrophy (Chronic) N40.0 Hypertension (Chronic) I10 Nephrotic syndrome (Chronic) N04.9 Allergies Sulfa (Sulfonamide Antibiotics) Allergy (Severe, Verified 02/26/18 07:51) Hives Home Medications: Ambulatory Orders Medication Instructions Recorded Sennosides/Docusate Sodium 1 ea PO PRN PRN 08/07/16 [Docusate Sodium-Senna Tablet] Dicyclomine HCl 20 mg PO TIDCM 10/23/16 Omeprazole [Prilosec] 20 mg PO DAILY 10/23/16 Tamsulosin HCl [Flomax] 0.4 mg PO BID 10/23/16 Oxycodone [Oxyir] 5 mg PO Q8H PRN PRN #7 tab 10/28/16 Metoprolol Tartrate [Lopressor 50 mg PO BID tab 11/03/16 (beta keila)] Surgical History: Surgical History (Last Updated 02/23/18 @ 15:41 by Kati Dorsey) Presence of surgically created arteriovenous shunt for hemodialysis Z99.2 LUE Surgical History: colectomy - bowel obstruction-remote Lives: Spouse/ Significant Other Smoking Status: Former smoker Alcohol: None Drugs: None - *Family History Maternal History Items: No pertinent history Paternal History Items: No pertinent history Review of Systems Constitutional: Reports: - - complete ROS negative except as documented in HPI Patient Problems: Active and Suspected Problems Generalized weakness (Acute) Recurrent falls (Acute) Transient expressive aphasia (Acute) - Physical Exam General: - - drowsy, but easily arousable, AoA x2 HEENT: Normocephalic Neck: Supple Lungs: Normal air movement Cardiovascular: Normal S1, Normal S2 Abdomen: Bowel Sounds Present Extremities: No cyanosis Musculoskeletal: No Tenderness to Palpation of Joints or Extremities Neurological: - - drowsy but easily arousable, AoAx2, follows VC, CN 2-12 grossly intact, power 5/5 all 4 extremities, no sensory loss, no cerebellar signs, Reflexes + B/L B/S/T/K/A, gait deferred Psych/Mental Status: Normal Affect Vital Signs Temp Pulse Resp BP Pulse Ox 98.0 F 59 L 20 H 120/59 L 97 05/26/18 12:15 05/26/18 12:15 05/26/18 12:15 05/26/18 12:15 05/26/18 12:15 Oxygen Delivery Method Room Air Weight: 86.4 kg Body Mass Index (BMI) 35.9 Intake and Output for Last 24 Hours 05/24/18 05/25/18 05/26/18 23:59 23:59 23:59 Intake Total 120 / 120 480 / 480 Balance 120 / 120 480 / 480 Laboratory Tests Past 24 Hrs 05/25/18 05/26/18 05/26/18 21:27 04:30 05:16 WBC RBC Hgb Hct MCV MCH MCHC RDW RDW Differential Plt Count MPV Sodium 138 Potassium 3.7 Chloride 103 Carbon Dioxide 29.0 Anion Gap 6 BUN 19 H Creatinine 3.72 H Estim Creat Clear Calc 11.91 Est GFR (MDRD) Af Amer 20 L Est GFR (MDRD) Non-Af 17 L BUN/Creatinine Ratio 5.1 L Glucose 87 Hemoglobin A1c Calcium 10.0 Total Bilirubin 0.60 Direct Bilirubin 0.37 H AST 62 H ALT 74 H Alkaline Phosphatase 126 H Troponin I < 0.015 C-React Prot Ext Range 4.33 H Total Protein 6.5 Albumin 2.4 L Globulin 4.1 Triglycerides 81 Cholesterol 81 LDL Cholesterol 39 VLDL Cholesterol 16 HDL Cholesterol 26 L Vitamin B12 Folate 8.70 TSH 2.84 Urine Color Yellow Urine Clarity Turbid Urine pH 8.0 Ur Specific Faxon 1.010 Urine Protein 500 H Urine Glucose (UA) Normal Urine Ketones Negative Urine Occult Blood 250 H Urine Nitrite Negative Urine Bilirubin Negative Urine Urobilinogen Normal Ur Leukocyte Esterase 500 H Urine RBC 0-5 SEEN Urine WBC 50-100 SEEN Ur Squamous Epith Cells 0-5 SEEN Urine Bacteria 1+ Urine Mucus 0 SEEN 05/26/18 05/26/18 05/26/18 05:16 05:16 05:16 WBC 3.2 L RBC 3.52 L Hgb 10.5 L Hct 32.7 L MCV 92.9 MCH 29.8 MCHC 32.1 RDW 15.3 H RDW Differential 49.5 H Plt Count 99 L MPV 9.0 Sodium Potassium Chloride Carbon Dioxide Anion Gap BUN Creatinine Estim Creat Clear Calc Est GFR (MDRD) Af Amer Est GFR (MDRD) Non-Af BUN/Creatinine Ratio Glucose Hemoglobin A1c 4.2 Calcium Total Bilirubin Direct Bilirubin AST ALT Alkaline Phosphatase Troponin I C-React Prot Ext Range Total Protein Albumin Globulin Triglycerides Cholesterol LDL Cholesterol VLDL Cholesterol HDL Cholesterol Vitamin B12 277 Folate TSH Urine Color Urine Clarity Urine pH Ur Specific Faxon Urine Protein Urine Glucose (UA) Urine Ketones Urine Occult Blood Urine Nitrite Urine Bilirubin Urine Urobilinogen Ur Leukocyte Esterase Urine RBC Urine WBC Ur Squamous Epith Cells Urine Bacteria Urine Mucus POC Glucose 05/26/18 05/26/18 05/25/18 11:17 06:56 23:15 POC Glucose 131 H 88 98 Assessment/Plan All Active Problems Generalized weakness (Acute) Recurrent falls (Acute) Transient expressive aphasia (Acute) ESRD (end stage renal disease) (Acute) DVT of bilateral internal jugular veins (Acute) The patient is a 78 year old CM with PMH HTN, ESRD on HD, nephrotic syndrome, ? H/O Stroke, H/O DVT both Internal jugular vein, morbid obesity admitted with generalized weakness. History is obtained from patient and his as well as medical records. Per he was coming out of the bathroom yesterday (05/25/18), was walking very slowly with walker and slid down, had a fall, no LOC or head injury and then did not speak anything at all, started speaking again when the squad came per . Denies any COATES, visual disturbances, sensory loss or focal motor weakness. At present patient is not oriented to time, but per is almost back to his baseline, denies any neck pain, low back pain, denies frequent falls, per has fallen about twice in the last 6 months, does not drive and does need assistance for his activity of daily living. Per he was on Coumadin for DVT of internal jugular vein but was taken off by his senior php web developer about 2 months ago since he was bruising a lot, is not on ASA at baseline. MRI brain done on admission reported nothing acute. Labs reviewed: UA: turbid, LE -500 H, urine WBC-50-100, bacteria +1, ASST/ALT 62/74 H, CRP-4.33, Na-138, K-3.7, creatinine-3.72, WBC-3.2, Plt count-99, Hb-10.5. Impression Generalized weakness Metabolic encephalopathy Plan -Started on ASA and lipitor by primary team. This event is unlikely to be a vascular event -LFTs are altered, avoid high statins if possible, will defer to primary team. -UTI management per primary team -MRI brain reviewed- no stroke -PT/OT/ST -GI/DVT prophylaxis -Fall precautions -Further medical management per primary team. -Please call with questions if any -Thank you for allowing us to participate in patient's care and management I spent 60 minutes taking history, doing physical examination, reviewing medical records, coordinating care and counseling the patient. Code Visit Inpatient E&M: 46103 Init Hosp L3
--- NOTE | 2018-05-26 14:15 | NURSING ---
pt ambulated to RR and then to wall on opposite side of doorway in [place], and back to bed. Refused to walk any further. Minimal assistance needed.
--- NOTE | 2018-05-26 14:55 | CASEMGMT ---
RN CM Note: Referral from Dr. Vivas for Home Physical Therapy for PT. Referral to [facility]- order placed and call to HOLDEN Hurley/[facility] to notify. She will see pt in hospital. Timur MERCADO RN ACM.
--- NOTE | 2018-05-26 15:38 | PCM.DC ---
- Discharge Diagnoses Current Active Problems: Current Active and Chronic Problems Generalized weakness (Acute) Recurrent falls (Acute) Transient expressive aphasia (Acute) You will use the following diet at home:: No restrictions Your food should be the consistency of: Regular Your liquids should be the consistency of: Regular/Thin Discharge Activity: Return to Normal Activity Weight Bearing Status: Weight bearing as tolerated Allergies/Adverse Reactions: Allergies Sulfa (Sulfonamide Antibiotics) Allergy (Severe, Verified 02/26/18 07:51) Hives Medications to take at Discharge Sennosides/Docusate Sodium [Docusate Sodium-Senna Tablet] 1 ea PO PRN PRN 08/07/16 Omeprazole [Prilosec] 20 mg PO DAILY 10/23/16 Tamsulosin HCl [Flomax] 0.4 mg PO BID 10/23/16 Oxycodone [Oxyir] 5 mg PO Q8H PRN PRN #7 tab 10/28/16 Metoprolol Tartrate [Lopressor (beta keila)] 50 mg PO BID tab 11/03/16 Nepro Liquid [Nepro Carb Steady] 120 ml PO 4X/DAY liquid 05/26/18 Ondansetron HCl [Zofran] 4 mg PO Q6H PRN PRN #30 tab 05/26/18 The following prescriptions were given: Ondansetron HCl [Zofran] 4 mg PO Q6H PRN PRN #30 tab PRN Reason: Nausea Primary Care Physician: Dona Santiago MD [Primary Care Provider] - Please follow up with your Primary Care Physician in: in 3 weeks Test Results: Test results from this visit will be discussed in further detail at your follow-up appointment, if applicable. Please Follow Up With: Aleks Moore MD When: call for appointment
--- NOTE | 2018-05-26 15:42 | DCINST_ITS ---
- Discharge Diagnoses Current Active Problems: Current Active and Chronic Problems Generalized weakness (Acute) Recurrent falls (Acute) Transient expressive aphasia (Acute) You will use the following diet at home:: No restrictions Your food should be the consistency of: Regular Your liquids should be the consistency of: Regular/Thin Discharge Activity: Return to Normal Activity Weight Bearing Status: Weight bearing as tolerated Allergies/Adverse Reactions: Allergies Sulfa (Sulfonamide Antibiotics) Allergy (Severe, Verified 02/26/18 07:51) Hives Medications to take at Discharge Sennosides/Docusate Sodium [Docusate Sodium-Senna Tablet] 1 ea PO PRN PRN Omeprazole [Prilosec] 20 mg PO DAILY 10/23/16 Tamsulosin HCl [Flomax] 0.4 mg PO BID 10/23/16 Oxycodone [Oxyir] 5 mg PO Q8H PRN PRN #7 tab 10/28/16 Metoprolol Tartrate [Lopressor (beta keila)] 50 mg PO BID tab 11/03/16 Nepro Liquid [Nepro Carb Steady] 120 ml PO 4X/DAY liquid 05/26/18 Ondansetron HCl [Zofran] 4 mg PO Q6H PRN PRN #30 tab 05/26/18 The following prescriptions were given: Ondansetron HCl [Zofran] 4 mg PO Q6H PRN PRN #30 tab PRN Reason: Nausea Primary Care Physician: Dona Santiago MD [Primary Care Provider] - Please follow up with your Primary Care Physician in: in 3 weeks Test Results: Test results from this visit will be discussed in further detail at your follow- up appointment, if applicable. Please Follow Up With: Aleks Moore MD When: call for appointment
--- NOTE | 2018-05-27 15:52 | PCM.DC.SUM ---
Discharge Date and Diagnosis Date of Admission: 05/25/18 Date of Discharge: 05/26/18 - Primary Discharge Diagnosis #1 generalized weakness and transient aphasia secondary to metabolic encephalopathy #2 end-stage renal disease on dialysis #3 hypertension #4 generalized debility secondary to multiple medical problems #5 benign prostatic hypertrophy - Secondary Discharge Diagnosis Chronic Problems Morbid obesity (Chronic) Chronic renal disease, stage IV (Chronic) Benign prostatic hypertrophy (Chronic) Hypertension (Chronic) Nephrotic syndrome (Chronic) Hospital Course and Treatment Operations: None Procedures: None Summary of Care Provided: The patient is a 78 year old M who was seen in the emergency room at [facility] after being brought in by his with complaints of generalized weakness. His stated that the weakness got worse throughout the day, she also noted that he was having trouble expressing himself, she denied any slurred speech. Evaluation in the emergency room included a CT of the head which showed chronic changes, CBC showed pancytopenia which was normal for the patient, creatinine was 3.52. Patient was unable to walk secondary to generalized weakness in the emergency room, there was no evidence of expressive aphasia from the emergency room physician. Patient was placed and observation status on PCU, he was seen in consultation by neurology and had further imaging studies performed which showed no evidence of stroke. Neurology felt that the patient had a metabolic disorder due to his end-stage renal disease and patient's symptoms were due to this. I had a long discussion with the patient's , patient's did not desire the patient to go to a alf facility and the patient was able to walk short distances with a walker but refused to cooperate with physical therapy totally. requested that I contact the patient's urologist due to the fact the patient had been having some urinary discomfort at times, she states that she gave the patient antibiotics when this happened, I told her that this was not a good idea to administer antibiotics every time the patient had painful urination. I talked briefly with the patient's urologist Dr. Moore, he suggested some urological medications but these were contraindicated with end-stage renal disease. I discussed this with the patient's and told her that she needed to make an appointment for follow-up with . During the time I talked to the patient and his , patient most of the time did not verbally participate in the conversation and chose to lie in bed and not seen anything. I wonder if there is a component of dementia to the patient's behavior. Outpatient physical therapy was set up for the patient, on 05/27/18, patient was seen and examined felt to be in stable condition for discharge home. I had arranged for the patient to receive dialysis the day he was discharged home at an outpatient facility, however, patient's refused to take the patient to dialysis stating that she would take him to dialysis in 48 hours at his next scheduled dialysis date. I told her I did not feel this was a good idea but she insists that she was not going to take him to dialysis on 05/26/18. Discharge Activity: Return to Normal Activity Weight Bearing Status: Weight bearing as tolerated Home Medications: Medications to take at Discharge Sennosides/Docusate Sodium [Docusate Sodium-Senna Tablet] 1 ea PO PRN PRN 08/07/16 Omeprazole [Prilosec] 20 mg PO DAILY 10/23/16 Tamsulosin HCl [Flomax] 0.4 mg PO BID 10/23/16 Oxycodone [Oxyir] 5 mg PO Q8H PRN PRN #7 tab 10/28/16 Metoprolol Tartrate [Lopressor (beta keila)] 50 mg PO BID tab 11/03/16 Nepro Liquid [Nepro Carb Steady] 120 ml PO 4X/DAY liquid 05/26/18 Ondansetron HCl [Zofran] 4 mg PO Q6H PRN PRN #30 tab 05/26/18 Following Prescrptions Were Given to Patient: Ondansetron HCl [Zofran] 4 mg PO Q6H PRN PRN #30 tab PRN Reason: Nausea Primary Care Physician: Dona Santiago MD [Primary Care Provider] - Please follow up with your Primary Care Physician in: in 3 weeks Please Follow Up With: Aleks Moore MD When: call for appointment Disposition: Home Minutes spent on discharge:: 25 Patient Condition:: Stable Medical Necessity - Tobacco Use Smoking Status: Former smoker Meaningful Use Info Meaningful Use Diagnoses (Choose all that apply): None applicable Code Visit OBSV E&M: 83679 Observation care discharge
--- NOTE | 2018-05-27 15:59 | DS.PCM_ITS ---
Discharge Date and Diagnosis Date of Admission: 05/25/18 Date of Discharge: 05/26/18 - Primary Discharge Diagnosis #1 generalized weakness and transient aphasia secondary to metabolic encephalopathy #2 end-stage renal disease on dialysis #3 hypertension #4 generalized debility secondary to multiple medical problems #5 benign prostatic hypertrophy - Secondary Discharge Diagnosis Chronic Problems Morbid obesity (Chronic) Chronic renal disease, stage IV (Chronic) Benign prostatic hypertrophy (Chronic) Hypertension (Chronic) Nephrotic syndrome (Chronic) Hospital Course and Treatment Operations: None Procedures: None Summary of Care Provided: The patient is a 78 year old M who was seen in the emergency room at [facility] after being brought in by his with complaints of generalized weakness. His stated that the weakness got worse throughout the day, she also noted that he was having trouble expressing himself, she denied any slurred speech. Evaluation in the emergency room included a CT of the head which showed chronic changes, CBC showed pancytopenia which was normal for the patient, creatinine was 3.52. Patient was unable to walk secondary to generalized weakness in the emergency room, there was no evidence of expressive aphasia from the emergency room physician. Patient was placed and observation status on PCU, he was seen in consultation by neurology and had further imaging studies performed which showed no evidence of stroke. Neurology felt that the patient had a metabolic disorder due to his end-stage renal disease and patient' s symptoms were due to this. I had a long discussion with the patient's , patient's did not desire the patient to go to a [facility] facility and the patient was able to walk short distances with a walker but refused to cooperate with physical therapy totally. requested that I contact the patient's urologist due to the fact the patient had been having some urinary discomfort at times, she states that she gave the patient antibiotics when this happened, I told her that this was not a good idea to administer antibiotics every time the patient had painful urination. I talked briefly with the patient 's urologist Dr. Moore, he suggested some urological medications but these were contraindicated with end-stage renal disease. I discussed this with the patient's and told her that she needed to make an appointment for follow- up with . During the time I talked to the patient and his , patient most of the time did not verbally participate in the conversation and chose to lie in bed and not seen anything. I wonder if there is a component of dementia to the patient's behavior. Outpatient physical therapy was set up for the patient, on 05/27/18, patient was seen and examined felt to be in stable condition for discharge home. I had arranged for the patient to receive dialysis the day he was discharged home at an outpatient facility, however, patient's refused to take the patient to dialysis stating that she would take him to dialysis in 48 hours at his next scheduled dialysis date. I told her I did not feel this was a good idea but she insists that she was not going to take him to dialysis on 05/26/18. Discharge Activity: Return to Normal Activity Weight Bearing Status: Weight bearing as tolerated Home Medications: Medications to take at Discharge Sennosides/Docusate Sodium [Docusate Sodium-Senna Tablet] 1 ea PO PRN PRN Omeprazole [Prilosec] 20 mg PO DAILY 10/23/16 Tamsulosin HCl [Flomax] 0.4 mg PO BID 10/23/16 Oxycodone [Oxyir] 5 mg PO Q8H PRN PRN #7 tab 10/28/16 Metoprolol Tartrate [Lopressor (beta keila)] 50 mg PO BID tab 11/03/16 Nepro Liquid [Nepro Carb Steady] 120 ml PO 4X/DAY liquid 05/26/18 Ondansetron HCl [Zofran] 4 mg PO Q6H PRN PRN #30 tab 05/26/18 Following Prescrptions Were Given to Patient: Ondansetron HCl [Zofran] 4 mg PO Q6H PRN PRN #30 tab PRN Reason: Nausea Primary Care Physician: Dona Santiago MD [Primary Care Provider] - Please follow up with your Primary Care Physician in: in 3 weeks Please Follow Up With: Aleks Moore MD When: call for appointment Disposition: Home Minutes spent on discharge:: 25 Patient Condition:: Stable Medical Necessity - Tobacco Use Smoking Status: Former smoker Meaningful Use Info Meaningful Use Diagnoses (Choose all that apply): None applicable Code Visit OBSV E&M: 61829 Observation care discharge
== END 2018-05-26 15:43 | disposition home health service (06) ==
LOC: ED 17:03 → PCU 19:46
PROVIDERS: Admitting Provider Internal Medicine; Emergency Provider Emergency Medicine; Family Provider Internal Medicine; PCP Internal Medicine; Visit Provider Internal Medicine
DX: G93.41 Metabolic encephalopathy (principal); R47.01 Aphasia; I12.0 Hypertensive chronic kidney disease with stage 5 chronic kidney disease or end stage renal disease; N18.6 End stage renal disease; Z99.2 Dependence on renal dialysis; E66.01 Morbid (severe) obesity due to excess calories; Z68.36 Body mass index [BMI] 36.0-36.9, adult; Z71.3 Dietary counseling and surveillance; N40.0 Benign prostatic hyperplasia without lower urinary tract symptoms; D61.818 Other pancytopenia; Z87.891 Personal history of nicotine dependence; Z79.899 Other long term (current) drug therapy; Z86.718 Personal history of other venous thrombosis and embolism; D63.8 Anemia in other chronic diseases classified elsewhere; Z86.73 Personal history of transient ischemic attack (TIA), and cerebral infarction without residual deficits
CPT/HCPCS: 36415; 70450; 70551; 71045; 80048; 80061; 80076; 81001; 82607; 82746; 82962; 83036; 84443; 84484; 85025; 85027; 85610; 85730; 86140; 93005; 93880; 96372; 97162; 97165; 97802; 99218; 99285; A4216; G0378

== ENCOUNTER 2018-06-06 06:01 | Emergency (ER) | payer MEDICARE, OTHER, SELFPAY ==
[2018-06-06 06:02] VITALS: BP 131/68; PULSE 72; RESP 18; TEMP 36.9; O2SAT 100; BMI 36.5
--- NOTE | 2018-06-06 06:12 | CT_ITS ---
STUDY: CT BRAIN WITHOUT CONTRAST REASON FOR EXAM: Male, 78 years old. Status post fall. RADIATION DOSAGE (If Supplied By Facility): CTDIvol = ( 44.99 ) mGy, DLP = ( 762.36 ) mGycm TECHNIQUE: Transaxial CT imaging of the brain was performed without administration of intravenous contrast material. Individualized dose optimization techniques were used for this CT. COMPARISON: CT brain: 05/25/2018 FINDINGS: Normal soft tissue structures. Normal calvarium. Normal size ventricles and extra-axial spaces for the patient's age. There are areas of decreased attenuation within the white matter tracts of the supratentorial brain, consistent with microvascular disease changes. There is no acute abnormality of the basal ganglia, thalami and brainstem. There is moderate cerebellar atrophy. There is no intracranial hemorrhage. There are no findings of an acute ischemic infarction. Atherosclerotic calcification of the cavernous ICAs and bilateral vertebral arteries. There is mucoperiosteal inflammatory disease of the ethmoid and left maxillary sinuses consistent with mild chronic sinusitis. CT/Brain/Head without Contrast IMPRESSION: 1. Chronic involutional and ischemic changes of the brain. 2. No acute intracranial abnormality noted. Stable appearing brain. Electronically Signed: Ayde Alatorre MD at 7:13 EDT Tel , Service support ,
--- NOTE | 2018-06-06 06:12 | RAD_ITS ---
STUDY: X-RAY - RIGHT KNEE REASON FOR EXAM: Male, 78 years old. Fall. TECHNIQUE: 3 view(s) of the knee. COMPARISON: None. FINDINGS: There is demineralization of the visualized distal femur and visualized proximal tibia and fibula. There is arthrosis of the proximal tibiofibular articulation. There is no demonstrated fracture. There is a total knee arthroplasty with noncemented femoral and tibial prosthetic components in place. There is a low-lying patella. Suprapatellar soft tissue calcifications. There are atherosclerotic calcifications. RAD/Knee 3 Views IMPRESSION: 1. No demonstrated fracture or dislocation. 2. Uncomplicated total right knee arthroplasty. Electronically Signed: Ayde Alatorre MD at 7:16 EDT Tel , Service support ,
--- NOTE | 2018-06-06 06:16 | ED.VISSUMM ---
- ER Visit Summary Date of Service: 06/06/18 Chief Complaint: [Fall] History of Present Illness: The patient is a 78 M [who presents the emergency department after a fall. He got up and lost his balance and fell and hit the side of his head. This is not uncommon for him. He did hit his head on the plug. She will not complaining of any pain at this time although his states that when EMS got a mild he appeared to be in discomfort. He is not on any anticoagulation.] Physical Examination: [] Small skin avulsion the right parietal, skin avulsions the right restorationist Pupils equal and reactive extraocular eye movements are intact Neck is nontender Regular rate and rhythm no murmurs Clear to auscultation bilaterally Abdomen soft and nontender he has a small soft tissue bruise of the right lower abdominal wall Full range of motion without pain deformity of both upper extremities, mild tenderness to palpation of the right knee anteriorly with a small bruise. There is a well-healed anterior scar over the knee. He has full range of motion of the knee and hip without significant pain Back is nontender Alert and oriented ?3 with no focal deficits Test Results: [] Emergency Department Course and Treatment: CT the head shows no acute process. X-rays of the knee showed no acute process. Patient ambulated in the emergency department at his baseline. At this time I do think he is stable to go home. Falls are a chronic issue for him and both him and his are not concerned about this fall he did not lose consciousness he did not pass out he has chronic gait instability. [] Treatment Plan: [] Disposition: [Discharge] Impression: [Closed head injury, abrasions, right knee contusion] This note was generated with [employer] dictation software. It may contain incorrect words, spelling, and punctuation that were not noted in review of the chart prior to signing ED Disposition - Plan for ED Patient: Chief Complaint: Laceration Referrals: Dona Santiago MD [Primary Care Provider] -
--- NOTE | 2018-06-06 06:19 | ED.DCSUM_ITS ---
- ER Visit Summary Date of Service: 06/06/18 Chief Complaint: [Fall] History of Present Illness: The patient is a 78 M [who presents the emergency department after a fall. He got up and lost his balance and fell and hit the side of his head. This is not uncommon for him. He did hit his head on the plug. She will not complaining of any pain at this time although his states that when EMS got a mild he appeared to be in discomfort. He is not on any anticoagulation.] Physical Examination: [] Small skin avulsion the right parietal, skin avulsions the right holiness Pupils equal and reactive extraocular eye movements are intact Neck is nontender Regular rate and rhythm no murmurs Clear to auscultation bilaterally Abdomen soft and nontender he has a small soft tissue bruise of the right lower abdominal wall Full range of motion without pain deformity of both upper extremities, mild tenderness to palpation of the right knee anteriorly with a small bruise. There is a well-healed anterior scar over the knee. He has full range of motion of the knee and hip without significant pain Back is nontender Alert and oriented ?3 with no focal deficits Test Results: [] Emergency Department Course and Treatment: CT the head shows no acute process. X-rays of the knee showed no acute process. Patient ambulated in the emergency department at his baseline. At this time I do think he is stable to go home. Falls are a chronic issue for him and both him and his are not concerned about this fall he did not lose consciousness he did not pass out he has chronic gait instability. [] Treatment Plan: [] Disposition: [Discharge] Impression: [Closed head injury, abrasions, right knee contusion] This note was generated with [employer] dictation software. It may contain incorrect words, spelling, and punctuation that were not noted in review of the chart prior to signing ED Disposition - Plan for ED Patient: Chief Complaint: Laceration Referrals: Dona Santiago MD [Primary Care Provider] -
--- NOTE | 2018-06-06 07:31 | ED.DEP ---
ED Disposition - Plan for ED Patient: Chief Complaint: Laceration Instructions: ED Head Injury Closed, ED Avulsion Dermal Referrals: Dona Santiago MD [Primary Care Provider] - 3-5 Days
== END 2018-06-06 08:09 | disposition home or self-care (01) ==
PROVIDERS: Emergency Provider Emergency Medicine; Family Provider Internal Medicine; PCP Internal Medicine
DX: S80.01XA Contusion of right knee, initial encounter (principal); S00.01XA Abrasion of scalp, initial encounter; R29.6 Repeated falls; Z79.899 Other long term (current) drug therapy; W18.30XA Fall on same level, unspecified, initial encounter; Y93.89 Activity, other specified; Y92.009 Unspecified place in unspecified non-institutional (private) residence as the place of occurrence of the external cause; Y99.8 Other external cause status
CPT/HCPCS: 70450; 73562; 99284

== ENCOUNTER 2018-06-23 16:53 | Inpatient (IN) | payer MEDICARE, OTHER, SELFPAY ==
[2018-06-17 15:45] LABS: Hematocrit 36.3 % (40-54); Hemoglobin 11.5 g/dl (13.0-16.5); Mean Corp Hgb Conc 31.7 g/gl (32-36); Mean Corpuscular Hgb 30.1 pg (27.0-32.0); Mean Platelet Vol. 9.4 fl (6.2-12.0); Platelet Count 105 K/mm3 (150-450); RBC Distribution Width CV 15.5 % (11.6-14.6); Red Blood Count 3.82 M/mm3 (4.6-6.2); White Blood Count 3.7 K/mm3 (4.4-11.0)
[2018-06-17 15:49] LABS: Scan Indicated on CBC? Y/N NO
[2018-06-17 16:09] LABS: Anion Gap 8 (5-15); BUN 18 mg/dL (7-18); BUN/Creat Ratio 4.5 RATIO (10-20); Calcium,Total 9.9 mg/dL (8.5-10.1); Chloride 99 mmol/L (98-107); Creatinine, Serum 3.97 mg/dL (0.70-1.30); EST Glomerular Filtration Rate 16 mL/min (>60); Est Glom Filt Rate - Afr Amer 19 mL/min (>60); Glucose 116 mg/dL (74-106); Potassium 3.9 mmol/L (3.5-5.1); Sodium Level 137 mmol/L (136-145)
[2018-06-23] VITALS (12 sets, daily range): BP systolic 92–148; BP diastolic 46–80; PULSE 48–79; RESP 16–18; TEMP 36.2–37.1; O2SAT 96–100; BMI 35.5
--- NOTE | 2018-06-23 | IMM_PTH ---
PATIENT: ANSLEY OLIVAS LOC: MS2 U#:[id number] AGE/SX: 78/M [place] [facility] [id number]25/[address]: Dr. Aleks Moore MD : 1940 BED: 1 DIS: 06/26/2018 SPEC #: [id number] RECD: 06/25/18 12:56 STATUS: RADHA REQ #: [id number] CHEN: 06/23/18 00:[address]: Aleks Moore DEPT: IMMUNOHISTOCHEMISTRY RECD BY: Yesenia Hardwick ENTERED: 06/25/18 12:57 SP TYPE: IMMUNO OTHR DR: MD Dr. Jose Guadalupe Rendon MD Tissues: Prostate, NOS Procedures: BCL-2 (add) CD20 (add) CD45 (add) CD5 (add) CD79A (add) CD3 (initial) PHYSICIAN & INSTITUTION [place] [address] SPECIMEN INFORMATION: Tissue Source: Prostate tissue Clinical Info: Urethral stricture and BPH with obstruction Specimen Number: [id number] #7 CPT code: 53205, 09155 x5 METHODOLOGY: Deparaffinized sections of prefer/formalin-fixed tissue or PAP/DQ stained slides are incubated with monoclonal/polyclonal antibodies/oligonucleotide probes. Localization is made via biotin free immunoperoxidase method. Appropriate controls are performed and reacted as expected. Results on target cell population are indicated in the following table: RESULTS: ANTIBODY / CLONE RESULT Block 7 CD3 (PS1) positive CD5 (SP10) positive CD20 (L26) positive CD79a (11E3) positive CD45 (RP2/18) positive BCL-2 (bcl-2/100/D5) negative, in germinal center These tests were developed and their performance characteristics determined by [facility]. They may not have been cleared or approved by the U.S. Food and Drug Administration. The FDA has determined that such clearance or approval is not necessary. INTERPRETATION: Prostate tissue, TUR: Lymphoid aggregates, polytypic in nature,favor benign. ANGEL:damian 06/28/18
--- NOTE | 2018-06-23 12:20 | PROS_PTH ---
PATIENT: ANSLEY OLIVAS LOC: MS2 U#:[id number] AGE/SX: 78/M ROOM: [facility] [place] RE06/25/[address]: Dr. Aleks Moore MD : 1940 BED: 1 DIS: 06/26/2018 SPEC #: [id number] RECD: 06/23/18 15:17 STATUS: RADHA CAMRYN #: [id number] CHEN: 06/23/18 12:[address]: Aleks Moore DEPT: SURGICAL PATHOLOGY RECD BY: Keaton Rios ENTERED: 06/24/18 10:16 SP TYPE: TURP OTHR DR: MD Dr. Jose Guadalupe Rendon MD Tissues: Prostate, NOS Procedures: Surgery Specimen Level IV HEADER OPERATION: Cysto, TURP PRE-OP DIAGNOSIS: Urethral stricture and BPH with obstruction TISSUE SUBMITTED: Prostate tissue MICROSCOPIC DIAGNOSIS Prostate tissue, TUR: Benign prostatic hyperplasia, glandular and stromal type. Chronic inflammation and lymphoid aggregate formation, favor benign. ANGEL:damian 06/25/18 COMMENT Immunohistochemistry ([id number]) supports the above diagnosis and shows lymphoid aggregates to be polytypic in nature, favor benign. MICROSCOPIC DESCRIPTION Slides are reviewed. GROSS DESCRIPTION Received is one container labeled with the patient's name and designated prostate tissue. The specimen consists of multiple irregular fragments of pink-fonseca, rubbery, soft tissue that in aggregate weigh 13.8 gm and measure in aggregate 6 x 6 x 2.5 cm. The entire specimen is submitted in 13 cassettes. / ANGEL:damian 06/24/18 TC:5 CPT: 29395
[2018-06-23] MEDS: Cefazolin 2 GM in 0.9% Normal Saline 100 ML IV (12:24)
[2018-06-23] MEDS: Lubricating Jelly 60 GM Tube 30 GM TOPICAL (12:47)
--- NOTE | 2018-06-23 13:58 | PCM.OPRPT ---
Report of Operation Date of Procedure: 06/23/18 Pre-Operative Diagnosis: Urethral stricture and BPH with obstruction Post-Operative Diagnosis: Same Surgery/Procedure Performed:: Cystoscopy with direct vision internal urethrotomy, transurethral resection of the prostate Description of Surgical Findings:: 78-year-old male who comes to the office been having a lot of difficulties going to the bathroom a lot of pain when he urinates, and prior cystoscopies found have a urethral stricture this is been dilated I believe he still has a stricture now. He is on dialysis but he still makes lots of urine and had a lot of pain and difficulty emptying his bladder so working to proceed today with a cystoscopy incision and direct vision internal urethrotomy of the stricture and a transurethral resection of the prostate. 78-year-old male taken back to the operating room after smooth induction of general anesthesia he was placed supine on the table the legs in dorsal lithotomy position penis and testicles were prepped and draped in usual sterile fashion went into the bladder with a 21 Canadian rigid cystourethroscope and a cystoscopy along the course of the length the ureter and in the bulbar urethra I found a pinpoint urethral stricture I then used the rigid urethrotome and used a knife blade on the urethrotome and then a cold knife incision of his urethral stricture in the bulbar urethra he had a dense stricture cut all the way through the urethra into the sponges And spongiosa tissue to a cart cut through the scar tissue I then was able to get into the prostate prostate had a very high riding bladder neck and bilateral obstruction with significant amount of obstruction into the bladder. I then put in the 24 Canadian noncontinuous flow resectoscope and then started resecting the prostate I first resected the really high riding bladder neck bladder neck tissue prosthetic tissue down to the fibers of the bladder neck I then circumferentially red resected all the way around the bladder neck to get any extending tissue into the bladder I then resected back to the Michelle the distance was only about the loop loop length and a half back to the Michelle resected the right lobe of the prostate all the way around to the apex and all the way to the roof resect the left lobe the prostate on the right and the apex into the roof open up a nice channel elect out all the chips I then switched over to the button and smooth out the resection from the sphincter all the way into the bladder neck smoothing out the flapping tissue at the apex to make sure that there was a nice open channel all the way into the bladder once I had a nice smooth resection there is still a significant amount of bleeding but slow down put a 22 Canadian catheter and continuous bladder irrigation patient's anesthetic was reversed and the plan is to keep in the hospital probably a day or 2 he will need dialysis while he is in the hospital. Will consult nephrology for dialysis services. Patient anesthetic is currently being reversed. Type of Anesthesia:: General Drains: [address] - Admit VTE Documentation VTE Present on Admission: No VTE Mechan Device Prophylaxis: SCD's VTE Pharm Prophylaxis ordered?: No Reason prophylaxis not ordered:: Treatment Not Indicated
[2018-06-23 15:41] LABS: Anion Gap 8 (5-15); BUN 26 mg/dL (7-18); BUN/Creat Ratio 4.9 RATIO (10-20); Calcium,Total 9.6 mg/dL (8.5-10.1); Chloride 103 mmol/L (98-107); Creatinine, Serum 5.36 mg/dL (0.70-1.30); EST Glomerular Filtration Rate 11 mL/min (>60); Est Glom Filt Rate - Afr Amer 13 mL/min (>60); Estimated Creatinine Clearance 8.27 ml/min; Glucose 88 mg/dL (74-106); Potassium 4.8 mmol/L (3.5-5.1); Sodium Level 138 mmol/L (136-145)
[2018-06-23] MEDS: 0.9% Normal Saline 1,000 ML 35 ML IV (16:40)
[2018-06-23] MEDS: SEVELAMER CARBONATE 800 MG TABLET PO (17:15)
[2018-06-23] MEDS: Nepro Liquid 120 ML LIQUID PO ×2 (17:17→21:08)
--- NOTE | 2018-06-23 18:00 | PCM.CONS.R ---
Problem List (1) ESRD (end stage renal disease) Status: Acute Consultation - Renal 06/23/18 PCP/ Referring MD: Requesting physician: [] Primary care physician: Dona Santiago Reason for Consultation:: ESRD - History of Present Illness History of Present Illness: The patient is a 78 year old M well known to us. ESRD on HD TTS schedule. last HD was yesterday. still voids. recently complaining of difficulty voiding. Saw urology. Had prostrate resection today. denies any complaints right now. on CBI. - Allergies Allergies: Allergies Sulfa (Sulfonamide Antibiotics) Allergy (Severe, Verified 06/06/18 06:06) Hives - Current Medications Current Medications: Current Medications Acetaminophen (Tylenol) 325 mg PO Q4H PRN PRN PRN Reason: Pain Al Hydroxide/Mg Hydroxide (Mylanta Ii) 30 ml PO Q4H PRN PRN PRN Reason: Heartburn Ciprofloxacin HCl (Cipro) 250 mg PO DAILY [facility] Docusate Sodium (Colace) 100 mg PO BID [facility] Sodium Chloride () 1,000 mls @ 35 mls/hr IV .[id number] [facility] Last Admin: 06/23/18 16:40 Dose: 35 mls/hr Ibuprofen (Motrin) 600 mg PO Q6H PRN PRN PRN Reason: PAIN Metoprolol Tartrate (Lopressor (Beta Minoo)) 50 mg PO BID [facility] Midodrine (Proamatine) 10 mg PO TID [facility] Last Admin: 06/23/18 16:00 Dose: Not Given Nutritional Formula (Nepro Carb Steady) 120 ml PO 4X/DAY [facility] Last Admin: 06/23/18 17:17 Dose: 120 ml Ondansetron HCl (Zofran) 4 mg IV Q6H PRN PRN PRN Reason: Nausea Oxycodone HCl (Oxyir) 5 mg PO Q4H PRN PRN PRN Reason: Pain Pantoprazole Sodium (Protonix) 40 mg PO DAILY [facility] Senna/Docusate Sodium (Senokot-S, Inocencia-Colace) 1 tablet PO DAILY PRN PRN PRN Reason: Constipation Sevelamer Carbonate (Renvela) 800 mg PO TIDCM [facility] Last Admin: 06/23/18 17:15 Dose: 800 mg Sodium Chloride () 5 - 30 ml IV UD PRN PRN Reason: SALINE FLUSH Tamsulosin HCl (Flomax) 0.4 mg PO BID [facility] Throat Lozenges (Cepacol Sore Throat Lozenge) 1 lozenge MUCOUS MEM Q2H PRN PRN PRN Reason: SORE THROAT - Past Medical History Past Medical History (Chronic Problems): Chronic Problems Morbid obesity (Chronic) Chronic renal disease, stage IV (Chronic) Benign prostatic hypertrophy (Chronic) Hypertension (Chronic) Nephrotic syndrome (Chronic) - Past Surgical History Surgical History: colectomy - bowel obstruction-remote - Social History Smoking Status: Never smoker - Family History Maternal History Items: No pertinent history Paternal History Items: No pertinent history Review of Systems Constitutional: Denies: Chills, Fever, Weight Change HEENT: Denies: Head Aches, Sinus Congestion, Sinus Drainage Cardiovascular: Denies: Chest Pain, Palpitations Respiratory: Denies: Cough, Shortness of breath at rest, Sputum production Gastrointestinal: Denies: Abdominal Pain, Nausea, Vomiting Genitourinary: Denies: Dysuria Musculoskeletal: Denies: Joint Pain, Joint Tenderness Skin: Denies: Rash, Wounds Neurological: Denies: Numbness, Tingling, Focal weakness Psychiatric: Denies: Anxiety, Depression, Homicidal Ideations, Suicidal Ideations Hematologic/ Lymphatic: Denies: Easy Bruising, Easy Bleeding - Physical Exam General: Alert, Oriented x3, Cooperative HEENT: Atraumatic, PERRLA, EOMI, Normocephalic Neck: Supple, No JVD, Negative Carotid Bruits Lungs: Clear to auscultation, Normal air movement Cardiovascular: Regular rate, No murmurs Abdomen: Bowel Sounds Present, Soft, Non Tender Extremities: No edema, Capillary Refill Less than 3 Seconds Skin: No rashes, No breakdown Musculoskeletal: No Tenderness to Palpation of Joints or Extremities Neurological: Cranial nerves II-XII grossly intact Psych/Mental Status: Normal Affect, Appropriate Vital Signs Temp Pulse Resp BP Pulse Ox 97.6 F L 48 L 16 137/60 H 100 06/23/18 16:07 06/23/18 16:07 06/23/18 16:07 06/23/18 16:07 06/23/18 16:07 Oxygen Delivery Method Room Air Weight: 85.3 kg Body Mass Index (BMI) 35.5 Finger Stick Blood Glucose 116 Intake and Output for Last 24 Hours 06/21/18 06/22/18 06/23/18 23:59 23:59 23:59 Intake Total 500 / 500 Output Total 900 / 900 Balance -400 / -400 Laboratory Tests Past 24 Hrs 06/23/18 15:23 Sodium 138 Potassium 4.8 Chloride 103 Carbon Dioxide 27.0 Anion Gap 8 BUN 26 H Creatinine 5.36 H Estim Creat Clear Calc 8.27 Est GFR (MDRD) Af Amer 13 L Est GFR (MDRD) Non-Af 11 L BUN/Creatinine Ratio 4.9 L Glucose 88 Calcium 9.6 Assessment/Plan All Active Problems Generalized weakness (Acute) Recurrent falls (Acute) Transient expressive aphasia (Acute) ESRD (end stage renal disease) (Acute) DVT of bilateral internal jugular veins (Acute) ESRD. HD TTS schedule. called dialysis staff. arranged for dialysis tomorrow Anemia. DEAN with HD. no heparin as he just had surgery Urinary retention. s/p prostrate surgery will follow
--- NOTE | 2018-06-23 18:09 | CON.PCM_ITS ---
Problem List (1) ESRD (end stage renal disease) Status: Acute Consultation - Renal 06/23/18 PCP/ Referring MD: Requesting physician: [] Primary care physician: Dona Santiago Reason for Consultation:: ESRD - History of Present Illness History of Present Illness: The patient is a 78 year old M well known to us. ESRD on HD TTS schedule. last HD was yesterday. still voids. recently complaining of difficulty voiding. Saw urology. Had prostrate resection today. denies any complaints right now. on CBI. - Allergies Allergies: Allergies Sulfa (Sulfonamide Antibiotics) Allergy (Severe, Verified 06/06/18 06:06) Hives - Current Medications Current Medications: Current Medications Acetaminophen (Tylenol) 325 mg PO Q4H PRN PRN PRN Reason: Pain Al Hydroxide/Mg Hydroxide (Mylanta Ii) 30 ml PO Q4H PRN PRN PRN Reason: Heartburn Ciprofloxacin HCl (Cipro) 250 mg PO DAILY [facility] Docusate Sodium (Colace) 100 mg PO BID [facility] Sodium Chloride () 1,000 mls @ 35 mls/hr IV .[id number] [facility] Last Admin: 06/23/18 16:40 Dose: 35 mls/hr Ibuprofen (Motrin) 600 mg PO Q6H PRN PRN PRN Reason: PAIN Metoprolol Tartrate (Lopressor (Beta Minoo)) 50 mg PO BID [facility] Midodrine (Proamatine) 10 mg PO TID [facility] Last Admin: 06/23/18 16:00 Dose: Not Given Nutritional Formula (Nepro Carb Steady) 120 ml PO 4X/DAY [facility] Last Admin: 06/23/18 17:17 Dose: 120 ml Ondansetron HCl (Zofran) 4 mg IV Q6H PRN PRN PRN Reason: Nausea Oxycodone HCl (Oxyir) 5 mg PO Q4H PRN PRN PRN Reason: Pain Pantoprazole Sodium (Protonix) 40 mg PO DAILY [facility] Senna/Docusate Sodium (Senokot-S, Inocencia-Colace) 1 tablet PO DAILY PRN PRN PRN Reason: Constipation Sevelamer Carbonate (Renvela) 800 mg PO TIDCM [facility] Last Admin: 06/23/18 17:15 Dose: 800 mg Sodium Chloride () 5 - 30 ml IV UD PRN PRN Reason: SALINE FLUSH Tamsulosin HCl (Flomax) 0.4 mg PO BID [facility] Throat Lozenges (Cepacol Sore Throat Lozenge) 1 lozenge MUCOUS MEM Q2H PRN PRN PRN Reason: SORE THROAT - Past Medical History Past Medical History (Chronic Problems): Chronic Problems Morbid obesity (Chronic) Chronic renal disease, stage IV (Chronic) Benign prostatic hypertrophy (Chronic) Hypertension (Chronic) Nephrotic syndrome (Chronic) - Past Surgical History Surgical History: colectomy - bowel obstruction-remote - Social History Smoking Status: Never smoker - Family History Maternal History Items: No pertinent history Paternal History Items: No pertinent history Review of Systems Constitutional: Denies: Chills, Fever, Weight Change HEENT: Denies: Head Aches, Sinus Congestion, Sinus Drainage Cardiovascular: Denies: Chest Pain, Palpitations Respiratory: Denies: Cough, Shortness of breath at rest, Sputum production Gastrointestinal: Denies: Abdominal Pain, Nausea, Vomiting Genitourinary: Denies: Dysuria Musculoskeletal: Denies: Joint Pain, Joint Tenderness Skin: Denies: Rash, Wounds Neurological: Denies: Numbness, Tingling, Focal weakness Psychiatric: Denies: Anxiety, Depression, Homicidal Ideations, Suicidal Ideations Hematologic/ Lymphatic: Denies: Easy Bruising, Easy Bleeding - Physical Exam General: Alert, Oriented x3, Cooperative HEENT: Atraumatic, PERRLA, EOMI, Normocephalic Neck: Supple, No JVD, Negative Carotid Bruits Lungs: Clear to auscultation, Normal air movement Cardiovascular: Regular rate, No murmurs Abdomen: Bowel Sounds Present, Soft, Non Tender Extremities: No edema, Capillary Refill Less than 3 Seconds Skin: No rashes, No breakdown Musculoskeletal: No Tenderness to Palpation of Joints or Extremities Neurological: Cranial nerves II-XII grossly intact Psych/Mental Status: Normal Affect, Appropriate Vital Signs Temp Pulse Resp BP Pulse Ox 97.6 F L 48 L 16 137/60 H 100 06/23/18 16:07 06/23/18 16:07 06/23/18 16:07 06/23/18 16:07 06/23/18 16:07 Oxygen Delivery Method Room Air Weight: 85.3 kg Body Mass Index (BMI) 35.5 Finger Stick Blood Glucose 116 Intake and Output for Last 24 Hours 06/21/18 06/22/18 06/23/18 23:59 23:59 23:59 Intake Total 500 / 500 Output Total 900 / 900 Balance -400 / -400 Laboratory Tests Past 24 Hrs 06/23/18 15:23 Sodium 138 Potassium 4.8 Chloride 103 Carbon Dioxide 27.0 Anion Gap 8 BUN 26 H Creatinine 5.36 H Estim Creat Clear Calc 8.27 Est GFR (MDRD) Af Amer 13 L Est GFR (MDRD) Non-Af 11 L BUN/Creatinine Ratio 4.9 L Glucose 88 Calcium 9.6 Assessment/Plan All Active Problems Generalized weakness (Acute) Recurrent falls (Acute) Transient expressive aphasia (Acute) ESRD (end stage renal disease) (Acute) DVT of bilateral internal jugular veins (Acute) ESRD. HD TTS schedule. called dialysis staff. arranged for dialysis tomorrow Anemia. DEAN with HD. no heparin as he just had surgery Urinary retention. s/p prostrate surgery will follow
[2018-06-23] MEDS: oxyCODONE 5 MG Tablet PO (18:12)
--- NOTE | 2018-06-23 20:12 | NURSING ---
ATTEMPTED TO IRRIGATE [place] WITH 60CC SYRINGE AND NS. UNABLE TO GET ANY CLOTS OUT.. CBI HAD ALREADY BEEN PREVIOUSLY STOPPED BY JIMBO WHEN [place] WAS NOTED TO BE NO LONGER DRAINING.
[2018-06-23] MEDS: Tamsulosin HCl 0.4 MG Capsule PO (21:00)
[2018-06-23] MEDS: Docusate Sodium 100 MG Capsule PO (21:00)
[2018-06-23] MEDS: Midodrine HCl 5 MG Tablet 10 MG PO (21:01)
[2018-06-23] MEDS: Acetaminophen 325 MG Tablet PO (21:05)
--- NOTE | 2018-06-24 00:58 | NURSING ---
On entering pt's room at shift change, noted that catheter was not draining and pt c/o increased pressure in bladder. turned off irrigation and KALLI Funez and this RN attempted to flush pulido multiple times with bulb syringe and catheter tip syringe to no avail. Unable to withdraw any fluid and catheter leaking around penis. Paged Dr Moore who advised to deflate balloon and advance pulido and attempt to flush with catheter tipped syringe. Same done with with KALLI Hendricks and this RN. Initially able to withdraw a syringe full of clots. hooked back up to irrigation straight away and opened the clamp wide and catheter once again blocked. repeated attempts by Eladio Cota and this nurse to irrigate pulido unsuccessful. Paged Dr Moore again and Dr came to the hospital. deflated the pulido balloon and removed pulido and reinserted same pulido after several unsuccessful attempts to irrigate. Able to finally irrigate and remove several more clots. Pulido positional and with repositioning and increased volume in balloon started draining well. Irrigation left wide open.
[2018-06-24] MEDS: Midodrine HCl 5 MG Tablet 10 MG PO ×2 (05:16→22:36)
[2018-06-24 05:18] VITALS: BP 103/57; PULSE 67; RESP 16; TEMP 36.8; O2SAT 96
[2018-06-24 06:28] LABS: Absolute Lymphocyte Count 1.06 X10^3/ul (0.83-4.51); Absolute Neutrophil Count 2.7 X10^3/uL (2.0-7.7); Basophil# 0.02 X10^3/uL; Basophil% 0.5 % (0-1); Eosinophil# 0.09 X10^3/uL; Hematocrit 28.1 % (40-54); Lymphocyte # 1.06 X10^3/ul (4.0); Lymphocyte % 23.9 % (19-41); Mean Corpuscular Hgb 30.5 pg (27.0-32.0); Mean Corpuscular Volume 95.3 fL (80-94); Mean Platelet Vol. 9.2 fl (6.2-12.0); Monocyte# 0.58 X10^3/uL; Monocyte% 13.1 % (0-10); Neutrophil # 2.67 X10^3/uL (2.7-7.7); Neutrophil % 60.3 % (47-70); Platelet Count 100 K/mm3 (150-450); RBC Distribution Width CV 15.1 % (11.6-14.6); RBC Distribution Width SD 50.6 fl (35.1-43.9); Red Blood Count 2.95 M/mm3 (4.6-6.2); White Blood Count 4.4 K/mm3 (4.4-11.0)
[2018-06-24 06:30] LABS: POSITIVE COUNT NO; POSITIVE DIFFERENTIAL NO; POSITIVE MORPHOLOGY NO
--- NOTE | 2018-06-24 07:41 | PCM.PN.BLA ---
Progress Note s/p TURP still bleeding continue with CBI for now no discharge today. dialysis per renal.
[2018-06-24] MEDS: SEVELAMER CARBONATE 800 MG TABLET PO ×2 (07:48→17:27)
[2018-06-24 08:01] VITALS: BP 112/91; PULSE 94; RESP 16; TEMP 36.4; O2SAT 100
[2018-06-24] MEDS: oxyCODONE 5 MG Tablet PO (08:06)
[2018-06-24 08:07] VITALS: BP 112/91; PULSE 94
[2018-06-24] MEDS: Tamsulosin HCl 0.4 MG Capsule PO ×2 (08:07→22:36)
[2018-06-24] MEDS: Pantoprazole Sodium 40 MG Tablet PO (08:08)
--- NOTE | 2018-06-24 09:09 | NURSING ---
rober arriaga, senior maintenance mechanic called to report urine flow slowed down in pulido. this nurse irrigated with ns and after 2 attempts was able to remove 1 small clot and several shreds. urine again flowing light pink, pt reports pressure is letting up now.
[2018-06-24] MEDS: Ciprofloxacin 250 MG Tablet PO (10:03)
[2018-06-24] MEDS: Nepro Liquid 120 ML LIQUID PO ×3 (10:04→22:36)
--- NOTE | 2018-06-24 10:06 | NURSING ---
pulido flushed again, a larger shred was removed this time. urine flowing light pink
--- NOTE | 2018-06-24 10:21 | NURSING ---
urine flow stopped again, pt moaning. flushed w/ns, only clear pink urine returned. pts gown, bed and blankets are wet but pt refusing to let them be changed. just let me rest, im freezing but when i tell him he is probably cold because he is in wet blankets he just tells me to throw more blankets on me, it will be fine
--- NOTE | 2018-06-24 11:19 | PCM.PN.REN ---
Subjective: no new complaints - Physical Exam General: Alert, Oriented x3, Cooperative HEENT: Atraumatic, PERRLA, EOMI, Normocephalic Neck: Supple, No JVD, Negative Carotid Bruits Lungs: Clear to auscultation, Normal air movement Cardiovascular: Regular rate, No murmurs Abdomen: Bowel Sounds Present, Soft, Non Tender Extremities: No edema, Capillary Refill Less than 3 Seconds Skin: No rashes, No breakdown Musculoskeletal: No Tenderness to Palpation of Joints or Extremities Neurological: Cranial nerves II-XII grossly intact Psych/Mental Status: Normal Affect, Appropriate Vital Signs Temp Pulse Resp BP Pulse Ox 97.6 F L 94 16 112/91 H 100 06/24/18 08:01 06/24/18 08:07 06/24/18 08:01 06/24/18 08:07 06/24/18 08:01 Oxygen Delivery Method Room Air Weight: 85.3 kg Body Mass Index (BMI) 35.5 Finger Stick Blood Glucose 116 Intake and Output for Last 24 Hours 06/22/18 06/23/18 06/24/18 23:59 23:59 23:59 Intake Total 790 / 790 648 / 648 Output Total 4250 / 4250 2925 / 2925 Balance -3460 / -3460 -2277 / -2277 Laboratory Tests Past 24 Hrs 06/23/18 06/24/18 15:23 06:00 WBC 4.4 RBC 2.95 L Hgb 9.0 L Hct 28.1 L MCV 95.3 H MCH 30.5 MCHC 32.0 RDW 15.1 H RDW Differential 50.6 H Plt Count 100 L MPV 9.2 Immature Gran % (Auto) 0.200 Neut % (Auto) 60.3 Lymph % (Auto) 23.9 Bledsoe % (Auto) 13.1 H Eos % (Auto) 2.0 Baso % (Auto) 0.5 Absolute Neuts (auto) 2.7 Absolute Lymphs (auto) 1.06 Total Counted Not Reportable Sodium 138 Potassium 4.8 Chloride 103 Carbon Dioxide 27.0 Anion Gap 8 BUN 26 H Creatinine 5.36 H Estim Creat Clear Calc 8.27 Est GFR (MDRD) Af Amer 13 L Est GFR (MDRD) Non-Af 11 L BUN/Creatinine Ratio 4.9 L Glucose 88 Calcium 9.6 Medical Necessity - Tobacco Use Smoking Status: Never smoker Tobacco Use: Non-smoker Assessment/Plan All Active Problems Generalized weakness (Acute) Recurrent falls (Acute) Transient expressive aphasia (Acute) ESRD (end stage renal disease) (Acute) DVT of bilateral internal jugular veins (Acute) ESRD. HD TTS schedule. dialysis today Anemia. DEAN with HD. no heparin as he just had surgery Urinary retention. s/p prostrate surgery will follow
[2018-06-24 13:00] VITALS: BP 137/63; PULSE 72; RESP 16; TEMP 36.8; O2SAT 98
--- NOTE | 2018-06-24 15:09 | CASEMGMT ---
Addendum entered by Jose Langley 06/24/18 15:11: Attempted call to to discuss pt's status at home- no answer at this time. Original Note: RN CM Note- attempted to see pt to complete RN CM Assessment. Receiving dialysis treatment. Pt is sleeping. Will attempt tomorrow. Timur MERCADO RN ACM
--- NOTE | 2018-06-24 17:11 | DIALYSIS ---
HD X 3.5 HRS ON A 2K BATH. UF +1200ML HYPOTENSIVE DURING DIALYSIS REPONDED WITH NORMAL SALINE FLUSHES.PT TO HAVE HD AGAIN IN AM TO GET ON REGULAR MWF SCHEDULE. NO MEDS GIVEN. STASIS AT [facility]. DSG AT SITES. REPORT TO AQUILES MAHAN
[2018-06-24 18:18] VITALS: BP 82/45; PULSE 100; RESP 16; TEMP 36.7; O2SAT 99
[2018-06-24] MEDS: 0.9% Normal Saline 1,000 ML 35 ML IV (22:33)
[2018-06-24 22:35] VITALS: BP 113/54; PULSE 72; RESP 16; TEMP 36.8; O2SAT 96
[2018-06-24] MEDS: Metoprolol Tartrate 50 MG Tablet PO (22:35)
[2018-06-25] VITALS (7 sets, daily range): BP systolic 103–121; BP diastolic 41–50; PULSE 67–98; RESP 1–18; TEMP 36.7–37.2; O2SAT 96–98
[2018-06-25] MEDS: Midodrine HCl 5 MG Tablet 10 MG PO ×3 (05:14→21:10)
[2018-06-25] MEDS: SEVELAMER CARBONATE 800 MG TABLET PO ×3 (08:11→17:10)
--- NOTE | 2018-06-25 08:12 | NURSING ---
Addendum entered by Akila Salter 06/25/18 08:22: not relafen... 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
--- NOTE | 2018-06-25 09:53 | DIALYSIS ---
Hep B status pending Report form primary RN: Akila Access: Left upper arm AVF: site benign, thrill and bruit present, cannulated with 15 gauge needles x 2 without difficulty. Lines and connections visible and secure.
[2018-06-25 11:35] LABS: HEPATITIS B SURFACE AG Negative (Negative); Hep B Surface Antibodies Non Reactive (.)
--- NOTE | 2018-06-25 12:09 | PCM.PN.BLA ---
Progress Note seen on dialysis. no complaints today see orders/flowsheets UF 1 L or so CBI possibly dc today
--- NOTE | 2018-06-25 12:15 | CASEMGMT ---
KALLI BALTAZAR Face to Face with patient for initial transition planning/care coordination assessment. RN CM introduced self and role at [facility]. Patient lying in bed, alert and oriented, at bedside. Patient willing to participate in assessment and is able to answer all questions appropriately. Care providers, pharmacy, and demographics verified. See link attached. Patient wishes to discharge home with resumption of [facility] HHC for PT. Patient states he has no further needs or concerns at this time. CM to follow for discharge planning needs that may arise. Disposition Plan: Patient to discharge home with resumption of HHC, family support, and follow-up plans in place.
--- NOTE | 2018-06-25 12:22 | DIALYSIS ---
Hemodialysis complete. 2.5 hour run, 2k bath. Net fluid removed = 800 ml. Patient tolerated HD tx well. Left upper arm AVF: site benign,thrill and bruit present, needle site pressure held 10 minutes each. Hemostasis achieved. Report given to primary RNMini
[2018-06-25] MEDS: Ciprofloxacin 250 MG Tablet PO (12:35)
[2018-06-25] MEDS: Pantoprazole Sodium 40 MG Tablet PO (12:35)
[2018-06-25] MEDS: Nepro Liquid 120 ML LIQUID PO ×3 (12:35→21:12)
[2018-06-25] MEDS: Docusate Sodium 100 MG Capsule PO ×2 (12:35→21:10)
[2018-06-25] MEDS: Tamsulosin HCl 0.4 MG Capsule PO ×2 (12:35→21:11)
[2018-06-25] MEDS: Metoprolol Tartrate 50 MG Tablet PO (21:11)
[2018-06-26] MEDS: 0.9% Normal Saline 1,000 ML 35 ML IV (01:51)
[2018-06-26 01:57] VITALS: BP 111/49; PULSE 69; RESP 16; TEMP 37.2; O2SAT 97
[2018-06-26] MEDS: Midodrine HCl 5 MG Tablet 10 MG PO (05:50)
[2018-06-26 07:45] VITALS: BP 121/56; PULSE 72; RESP 16; TEMP 37; O2SAT 96
--- NOTE | 2018-06-26 08:21 | PCM.DC.URO ---
Discharge Diet: Light diet - advance as tolerated Discharge Activity: May Not Drive May shower in (days): 1 Call your doctor if your incision/area has: Continuous Slow Oozing, Sudden Increased Bleeding, Increased Pain/ Swelling, Increased Redness, Foul Smelling Discharge, Swelling at the incision site Call your doctor if you observe: Fever of 101 or Higher Suture Line Care: Avoid Pulling/Pushing, Avoid Pinching/Bending Catheter: Castillo to leg bag, Castillo to large bag Drain: [place] Allergies/Adverse Reactions: Allergies Sulfa (Sulfonamide Antibiotics) Allergy (Severe, Verified 06/06/18 06:06) Hives Medications to take at Discharge Sennosides/Docusate Sodium [Docusate Sodium-Senna Tablet] 1 ea PO PRN PRN 08/07/16 Tamsulosin HCl [Flomax] 0.4 mg PO BID 10/23/16 Metoprolol Tartrate [Lopressor (beta keila)] 50 mg PO BID tab 11/03/16 Nepro Liquid [Nepro Carb Steady] 120 ml PO 4X/DAY liquid 05/26/18 Midodrine HCl [Proamatine] 10 mg PO TID 06/17/18 Oxycodone [Oxyir] 5 mg PO Q4H PRN PRN 06/17/18 Sevelamer HCl [Renagel] 800 mg PO TIDCM 06/17/18 Ciprofloxacin [Cipro] 250 mg PO DAILY #14 tab 06/26/18 Primary Care Physician: Dona Santiago MD [Primary Care Provider] - Test Results: Test results from this visit will be discussed in further detail at your follow-up appointment, if applicable. Please Follow Up With: Aleks Moore MD When: in 2 weeks, please call to make an appointment.
--- NOTE | 2018-06-26 08:24 | PCM.DC.SUM ---
Discharge Date and Diagnosis Date of Admission: 06/23/18 Date of Discharge: 06/26/18 - Secondary Discharge Diagnosis Chronic Problems Morbid obesity (Chronic) Chronic renal disease, stage IV (Chronic) Benign prostatic hypertrophy (Chronic) Hypertension (Chronic) Nephrotic syndrome (Chronic) Hospital Course and Treatment Nephrology Operations: None, TURP Summary of Care Provided: The patient is a 78 year old male with multiple medical problems on dialysis who presents to the hospital for dilation of urethral stricture was also found to have a very large prostate so underwent a direct vision internal urethrotomy and also transurethral resection of the prostate catheter was placed fairly heavy bleeding the first 2 days while in the hospital then the bleeding slowed down and finally on the postoperative day #3 bleeding stopped the urine was clear he received dialysis while he was in the hospital is back on his schedule. Urine looks clear today we will discharge him home with Cipro 250 mg once a day he will go home with a catheter the three-way is plugged and he can follow-up in my office in about 2 weeks to remove the catheter. Discharge Diet: Light diet - advance as tolerated Discharge Activity: May Not Drive May shower in (days): 1 Call your doctor if your incision/area has: Continuous Slow Oozing, Sudden Increased Bleeding, Increased Pain/ Swelling, Increased Redness, Foul Smelling Discharge, Swelling at the incision site Call your doctor if you observe: Fever of 101 or Higher Suture Line Care: Avoid Pulling/Pushing, Avoid Pinching/Bending Catheter: Castillo to leg bag, Castillo to large bag Drain: [place] Home Medications: Medications to take at Discharge Sennosides/Docusate Sodium [Docusate Sodium-Senna Tablet] 1 ea PO PRN PRN 08/07/16 Tamsulosin HCl [Flomax] 0.4 mg PO BID 10/23/16 Metoprolol Tartrate [Lopressor (beta keila)] 50 mg PO BID tab 11/03/16 Nepro Liquid [Nepro Carb Steady] 120 ml PO 4X/DAY liquid 05/26/18 Midodrine HCl [Proamatine] 10 mg PO TID 06/17/18 Oxycodone [Oxyir] 5 mg PO Q4H PRN PRN 06/17/18 Sevelamer HCl [Renagel] 800 mg PO TIDCM 06/17/18 Ciprofloxacin [Cipro] 250 mg PO DAILY #14 tab 06/26/18 Following Prescrptions Were Given to Patient: Ciprofloxacin [Cipro] 250 mg PO DAILY #14 tab Primary Care Physician: Dona Santiago MD [Primary Care Provider] - Please Follow Up With: Aleks Moore MD When: in 2 weeks, please call to make an appointment. Medical Necessity - Tobacco Use Smoking Status: Never smoker Tobacco Use: Non-smoker Meaningful Use Info Meaningful Use Diagnoses (Choose all that apply): None applicable
[2018-06-26 08:50] VITALS: PULSE 69
[2018-06-26] MEDS: Metoprolol Tartrate 50 MG Tablet PO (08:50)
[2018-06-26] MEDS: Ciprofloxacin 250 MG Tablet PO (08:50)
[2018-06-26] MEDS: SEVELAMER CARBONATE 800 MG TABLET PO (08:50)
[2018-06-26] MEDS: Pantoprazole Sodium 40 MG Tablet PO (08:50)
[2018-06-26] MEDS: Docusate Sodium 100 MG Capsule PO (08:50)
[2018-06-26] MEDS: Tamsulosin HCl 0.4 MG Capsule PO (08:51)
[2018-06-26 11:40] VITALS: BP 135/61; PULSE 58; RESP 16; TEMP 36.8; O2SAT 100
== END 2018-06-26 11:49 | disposition home health service (06) | DRG 665 ==
LOC: MS2 06-24 06:07 → SDC 06-24 07:04
PROVIDERS: Internal Medicine Nephrology; Admitting Provider Urology; Family Provider Internal Medicine; PCP Internal Medicine; Visit Provider Urology
PROC: 0TJB8ZZ Inspection of Bladder, Via Natural or Artificial Opening Endoscopic (ICD-10-PCS; CPT 52000; principal; 2018-06-23 12:05)
DX: N35.9 Urethral stricture, unspecified (principal); N18.6 End stage renal disease; N13.8 Other obstructive and reflux uropathy; I12.0 Hypertensive chronic kidney disease with stage 5 chronic kidney disease or end stage renal disease; N40.1 Benign prostatic hyperplasia with lower urinary tract symptoms; D64.9 Anemia, unspecified; E66.01 Morbid (severe) obesity due to excess calories; Z99.2 Dependence on renal dialysis; Z68.35 Body mass index [BMI] 35.0-35.9, adult
CPT/HCPCS: 36415; 80048; 85025; 85027; 86706; 87340; 88305; 88341; 88342; 90937; J7030; J7040; J7120; A4216; C1769; G0257; J2405

== ENCOUNTER 2018-06-30 12:20 | Inpatient (IN) | payer MEDICARE, OTHER, SELFPAY ==
[2018-06-30] VITALS (8 sets, daily range): BP systolic 93–121; BP diastolic 45–56; PULSE 59–71; RESP 12–18; TEMP 36.9–37.1; O2SAT 94–97; BMI 33.6; BMI 34.0
[2018-06-30 13:04] LABS: Absolute Lymphocyte Count 0.98 X10^3/ul (0.83-4.51); Absolute Neutrophil Count 4.9 X10^3/uL (2.0-7.7); Basophil# 0.01 X10^3/uL; Basophil% 0.2 % (0-1); Eosinophil# 0.04 X10^3/uL; Eosinophils% 0.6 % (0-5); Hematocrit 26.1 % (40-54); Hemoglobin 8.1 g/dl (13.0-16.5); Lymphocyte # 0.98 X10^3/ul (4.0); Lymphocyte % 15.1 % (19-41); Mean Corpuscular Hgb 29.3 pg (27.0-32.0); Mean Corpuscular Volume 94.6 fL (80-94); Mean Platelet Vol. 8.3 fl (6.2-12.0); Monocyte# 0.57 X10^3/uL; Monocyte% 8.8 % (0-10); Neutrophil # 4.86 X10^3/uL (2.7-7.7); Neutrophil % 74.8 % (47-70); POSITIVE COUNT NO; POSITIVE DIFFERENTIAL NO; POSITIVE MORPHOLOGY NO; Platelet Count 124 K/mm3 (150-450); RBC Distribution Width CV 15.5 % (11.6-14.6); RBC Distribution Width SD 52.9 fl (35.1-43.9); Red Blood Count 2.76 M/mm3 (4.6-6.2); White Blood Count 6.5 K/mm3 (4.4-11.0)
[2018-06-30] MEDS: 0.9% Normal Saline 1,000 ML 150 ML IV (13:08)
[2018-06-30 13:21] LABS: ALB/GLOB Ratio 0.4 RATIO (0.9-2.4); AST(SGOT) 27 U/L (15-37); Alanine Aminotransfer ALT/SGPT 14 U/L (16-61); Albumin, Serum 1.9 g/dL (3.2-5.0); Alkaline Phosphatase 127 U/L (45-117); Anion Gap 7 (5-15); BUN 8 mg/dL (7-18); BUN/Creat Ratio 3.8 RATIO (10-20); Calcium,Total 7.7 mg/dL (8.5-10.1); Chloride 100 mmol/L (98-107); Creatinine, Serum 2.13 mg/dL (0.70-1.30); EST Glomerular Filtration Rate 32 mL/min (>60); Est Glom Filt Rate - Afr Amer 39 mL/min (>60); Estimated Creatinine Clearance 21.72 ml/min; Globulin 4.4 g/dL (2.2-4.2); Glucose 113 mg/dL (74-106); Lipase 37 U/L (73-393); Potassium 3.7 mmol/L (3.5-5.1); Protein, Total 6.3 g/dL (6.4-8.2); Sodium Level 138 mmol/L (136-145)
--- NOTE | 2018-06-30 13:33 | ED.VISSUMM ---
- ER Visit Summary Date of Service: 06/30/18 Chief Complaint: [Near syncope and weakness] History of Present Illness: The patient is a 78 M [presents the emergency department complaint of weakness and near syncope. Patient apparently was at dialysis this morning and the gives most of the history. Patient had finished dialysis and they were going up the steps to their home when he began falling forward and the ended up catching him so he did not injure himself. Patient was complaining of feeling sick at the time and states he started to pass out. Patient denied any chest pain or shortness of breath. On arrival patient states that he feels improved and really has no complaints at this time. Patient has had similar episodes in the past. gives history of prostate surgery for patient a week ago. Patient has not had any blood in the stool or black tarry stools. Patient was able to finish dialysis today. He has not had recent illness. Patient has had some chronic episodes of nausea and vomiting intermittently for time to time.] Physical Examination: [HEENT-PERRLA, EOMI. Cranial nerves II through XII grossly intact. TMs clear. Mucous membranes moist. No adenopathy. Cardiovascular-regular rate and rhythm with 2 out of 6 systolic ejection murmur Lungs-clear to auscultation, chest wall stable without crepitus or subcu emphysema Abdomen-normoactive bowel sounds, soft, nontender, no rebound or rigidity, no peritoneal signs. Extremities-intact ?4, normal range of motion, normal pulses, atraumatic] Test Results: [EKG obtained showed a sinus rhythm with a ventricular rate of 58 bpm with no acute ST segment changes. CBC with differential showed white count 6.5, hemoglobin 8.1, hematocrit 26, platelets 124. History is unremarkable. BUN was 8 and creatinine 2.13. Troponin was 0.017. Orthostatic vital signs were positive and that patient could not stand.] Emergency Department Course and Treatment: [Patient received normal saline at 150 cc an hour.] Treatment Plan: [Admit] Disposition: [Admit] Impression: [Near syncope Generalized weakness Anemia Chronic renal failure] This note was generated with [email or web address] software. It may contain incorrect words, spelling, and punctuation that were not noted in review of the chart prior to signing ED Disposition - Plan for ED Patient: Chief Complaint: Syncope Referrals: Dona Santiago MD [Primary Care Provider] -
--- NOTE | 2018-06-30 13:37 | NURSING ---
DR EMMANUEL MEJÍA
--- NOTE | 2018-06-30 13:48 | NURSING ---
114 DR BENITEZ OBS WEAKNESS, ANEMIA, CHRONIC RENAL FAILURE, NEAR SYNCOPE
--- NOTE | 2018-06-30 14:02 | HP.PCM_ITS ---
Problem List (1) Near syncope Status: Acute (2) Hypotension Status: Acute (3) Generalized weakness Status: Chronic (4) Recurrent falls Status: Chronic (5) Transient expressive aphasia Status: Resolved (6) ESRD (end stage renal disease) Status: Chronic (7) DVT of bilateral internal jugular veins Status: Chronic (8) Morbid obesity Status: Chronic (9) Benign prostatic hypertrophy Status: Chronic (10) Hypertension Status: Chronic (11) Nephrotic syndrome Status: Chronic History of Present Illness Date of Admission: 06/30/18 Chief Complaint: Near syncope The patient is a 78 year old M with history of end-stage renal disease on dialysis on Thursday and Thursday, hypertension, BPH, last admission in May 25, 2018 for generalized weakness and transient aphasia secondary to metabolic encephalopathy came to ER after episode of dizziness and near pass out after dialysis today. Patient had normal assessment of dialysis and when he stepped in the house he felt dizzy, lightheaded, seems confused and disoriented, decreased responsiveness but no actual pass out. After that, his legs gave out and would almost fall forward but his caught him before he fell. He was brought in the ER where EKG shows sinus bradycardia at 58 bpm. Vitals in the ER shows low blood pressure 98/55 and had orthostatic vitals 96/56, heart rate 69 in supine and 98/53/68 in sitting posture. Patient denies fever, chills or signs and symptoms of UTI or bronchitis or pneumonia. Patient denies chest symptoms including chest pressure/pain, shortness of breath or palpitation or arrhythmia. Denies any external form of bleeding. He recently had prostate ablation/surgery 1 week ago and has catheter right up to his thigh. During previous admission for generalized weakness and transient aphasia, MRI brain does not show acute infarct or acute intracranial change. Carotid Doppler shows less than 50% stenosis in bilateral ICA. Patient is further admitted. 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) Morbid obesity (Chronic) Benign prostatic hypertrophy (Chronic) Hypertension (Chronic) Nephrotic syndrome (Chronic) Medical History: Medical History ESRD (end stage renal disease) (Acute) N18.6 DVT of bilateral internal jugular veins (Acute) Morbid obesity (Chronic) E66.01 Chronic renal disease, stage IV (Chronic) N18.4 Benign prostatic hypertrophy (Chronic) N40.0 Hypertension (Chronic) I10 Nephrotic syndrome (Chronic) N04.9 Allergies Sulfa (Sulfonamide Antibiotics) Allergy (Severe, Verified 06/30/18 12:21) Hives Home Medications: Ambulatory Orders Medication Instructions Recorded Sennosides/Docusate Sodium 1 ea PO PRN PRN 08/07/16 [Docusate Sodium-Senna Tablet] Tamsulosin HCl [Flomax] 0.4 mg PO BID 10/23/16 Metoprolol Tartrate [Lopressor 50 mg PO BID tab 11/03/16 (beta keila)] Midodrine HCl [Proamatine] 10 mg PO TID 06/17/18 Oxycodone [Oxyir] 5 mg PO Q8H PRN PRN 06/17/18 Sevelamer HCl [Renagel] 800 mg PO TIDCM 06/17/18 Ciprofloxacin [Cipro] 250 mg PO DAILY 06/30/18 Nepro Liquid [Nepro Carb Steady] 120 ml PO DAILY 06/30/18 Surgical History: Surgical History (Last Updated 02/23/18 @ 15:41 by Kati Dorsey) Presence of surgically created arteriovenous shunt for hemodialysis Z99.2 LUE Surgical History: colectomy - bowel obstruction-remote Smoking Status: Former smoker - *Family History Maternal History Items: No pertinent history Paternal History Items: No pertinent history Review of Systems Constitutional: Reports: Weakness, Fatigue. Denies: Chills, Fever, Weight Change HEENT: Denies: Head Aches, Sinus Congestion, Sinus Drainage Cardiovascular: Denies: Chest Pain, Palpitations Respiratory: Denies: Cough, Shortness of breath at rest, Sputum production Gastrointestinal: Denies: Abdominal Pain, Nausea, Vomiting Genitourinary: Reports: - - Has Castillo catheter tied to his thigh. Denies: Dysuria Musculoskeletal: Denies: Joint Pain, Joint Tenderness Skin: Denies: Rash, Wounds Neurological: Reports: Balance problems. Denies: Focal weakness, Numbness, Tingling Psychiatric: Denies: Anxiety, Depression, Homicidal Ideations, Suicidal Ideations Hematologic/ Lymphatic: Denies: Easy Bruising, Easy Bleeding VTE Information - Inpt Only VTE Present on Admission: No VTE Mechan Device Prophylaxis: SCD's VTE Pharm Prophylaxis ordered?: No Reason prophylaxis not ordered:: Medical Contraindication - Anemia Patient Problems: Active and Suspected Problems Near syncope (Acute) Hypotension (Acute) - Physical Exam General: Oriented x3, Cooperative, Lethargic HEENT: Atraumatic, PERRLA, EOMI, Normocephalic Oral: Dry Mucosa Neck: Supple, No JVD, Negative Carotid Bruits Lungs: Clear to auscultation, No rhonchi, No wheeze, No rales, Diminished - In the left lung base Cardiovascular: Regular rate, Normal S1, Normal S2, No murmurs Abdomen: Bowel Sounds Present, Soft, Non Tender, - - Has Castillo catheter Extremities: No edema, Capillary Refill Less than 3 Seconds Skin: No rashes, No breakdown Musculoskeletal: No Tenderness to Palpation of Joints or Extremities, Arthritic Changes, Muscle Wasting Neurological: Cranial nerves II-XII grossly intact Psych/Mental Status: Normal Affect, Appropriate Vital Signs Temp Pulse Resp BP Pulse Ox 98.7 F 60 12 96/56 L 94 06/30/18 12:21 06/30/18 13:08 06/30/18 12:21 06/30/18 13:08 06/30/18 12:21 Assessment/Plan All Active Problems Transient expressive aphasia (Resolved) Near syncope (Acute) Hypotension (Acute) The patient is a 78 year old M with history of end-stage renal disease on dialysis on Thursday and Thursday, hypertension, BPH, last admission in May 25, 2018 for generalized weakness and transient aphasia secondary to metabolic encephalopathy came to ER after episode of dizziness and near pass out after dialysis today. Patient had normal assessment of dialysis and when he stepped in the house he felt dizzy, lightheaded, seems confused and disoriented, decreased responsiveness but no actual pass out. After that, his legs gave out and would almost fall forward but his caught him before he fell. He was brought in the ER where EKG shows sinus bradycardia at 58 bpm. Vitals in the ER shows low blood pressure 98/55 and had orthostatic vitals 96/56, heart rate 69 in supine and 98/53/68 in sitting posture. Patient denies fever, chills or signs and symptoms of UTI or bronchitis or pneumonia. Patient denies chest symptoms including chest pressure/pain, shortness of breath or palpitation or arrhythmia. Denies any external form of bleeding. He recently had prostate ablation/surgery 1 week ago and has catheter right up to his thigh. During previous admission for generalized weakness and transient aphasia, MRI brain does not show acute infarct or acute intracranial change. Carotid Doppler shows less than 50% stenosis in bilateral ICA. Magnesium and TSH ordered. 1. Near syncope most probably secondary to hypotension, possible over removal of fluid during dialysis: Patient is being admitted in PCU. cycle cardiac enzymes although patient denies any previous history of coronary artery disease , CHF or arrhythmia. 2D echo is ordered. IV fluid normal saline about 1 L at the rate of 100 mL/h. Watch intake/output. Orthostatic vitals tomorrow a.m. as the patient had carotid Doppler and MRI of brain last month I do not think he needs again 2. ESRD on hemodialysis: Consult nephrology to adjust the fluid amount removal during dialysis 3. BPH with recent surgery about 1 week ago as mentioned above: Patient had surgery by Dr. Moore. Follow-up as an outpatient. UA with reflex urine culture ordered. 4. Acute anemia with history of anemia of chronic disease with mild chronic thrombocytopenia: Patient recent hemoglobin shows 8.1/26.1. Platelet count is 124 k. Stool for occult blood ordered. pharmacological prophylaxis/ anticoagulant is contraindicated. 5. Other chronic comorbidities include DVT of bilateral internal jugular vein; completed Coumadin and then discontinued, morbid obesity, hypertension and nephrotic syndrome: Multiple comorbidities complicates the present care and expect difficult and delay recovery Code Visit OBSV E&M: 51765 Initial observation care L3
[2018-06-30] MEDS: 0.9% Normal Saline 1,000 ML 100 ML IV (15:01)
[2018-06-30 15:27] LABS: Magnesium 1.9 mg/dL (1.6-2.6)
[2018-06-30] MEDS: SEVELAMER CARBONATE 800 MG TABLET PO (17:53)
[2018-06-30 19:53] LABS: Bacteria 0 SEEN /hpf (None Seen); Mucous, Urine 0 SEEN /hpf (<or=2+); Red Blood Cells-Urine 0 SEEN /hpf (0-5); Squamous Epithelial Cells - UA 0 SEEN /hpf (0-5)
[2018-06-30 19:57] LABS: Color, Urine Amber (Yellow); Glucose, Dipstick Normal (Normal); Ketone-Dipstick Negative (Negative); Leukocyte Esterase-Dipstick 500 /ul (Negative); Nitrite-Dipstick Negative (Negative); Occult Blood-Urine 250 /ul (Negative); Protein-Dipstick 500 mg/dl (Negative); Urine Bilirubin Dipstick Negative (Negative); Urine Clarity Turbid (Clear); Urine Urobilinogen Normal (Normal)
[2018-06-30 20:39] LABS: White Blood Cells >100 SEEN /hpf (0-5)
[2018-06-30] MEDS: Midodrine HCl 5 MG Tablet 10 MG PO (21:10)
[2018-06-30] MEDS: Tamsulosin HCl 0.4 MG Capsule PO (21:10)
[2018-06-30] MEDS: Nepro Liquid 120 ML LIQUID PO (21:13)
[2018-07-01] VITALS (14 sets, daily range): BP systolic 101–136; BP diastolic 43–67; PULSE 58–118; RESP 16; TEMP 36.7–37.1; O2SAT 92–98
[2018-07-01] MEDS: Senna/Docusate Sodium 1 Tablet PO (05:26)
[2018-07-01] MEDS: Midodrine HCl 5 MG Tablet 10 MG PO ×3 (05:26→21:34)
[2018-07-01 06:32] LABS: Absolute Lymphocyte Count 1.45 X10^3/ul (0.83-4.51); Absolute Neutrophil Count 3.1 X10^3/uL (2.0-7.7); Basophil# 0.01 X10^3/uL; Basophil% 0.2 % (0-1); Eosinophil# 0.09 X10^3/uL; Eosinophils% 1.7 % (0-5); Hematocrit 25.4 % (40-54); Lymphocyte # 1.45 X10^3/ul (4.0); Lymphocyte % 27.5 % (19-41); Mean Corp Hgb Conc 31.5 g/gl (32-36); Mean Corpuscular Hgb 30.1 pg (27.0-32.0); Mean Corpuscular Volume 95.5 fL (80-94); Mean Platelet Vol. 8.4 fl (6.2-12.0); Monocyte% 11.4 % (0-10); Neutrophil # 3.11 X10^3/uL (2.7-7.7); Neutrophil % 58.8 % (47-70); Platelet Count 135 K/mm3 (150-450); RBC Distribution Width CV 15.5 % (11.6-14.6); RBC Distribution Width SD 54.1 fl (35.1-43.9); Red Blood Count 2.66 M/mm3 (4.6-6.2); White Blood Count 5.3 K/mm3 (4.4-11.0)
[2018-07-01 06:34] LABS: POSITIVE COUNT NO; POSITIVE DIFFERENTIAL NO; POSITIVE MORPHOLOGY NO
[2018-07-01 07:02] LABS: Thyroid Stim Hormone (TSH) 1.91 uIU/mL (0.358-3.74)
[2018-07-01] MEDS: Tamsulosin HCl 0.4 MG Capsule PO ×2 (09:40→21:34)
[2018-07-01] MEDS: Metoprolol Tartrate 25 MG Tablet PO ×2 (09:40→21:34)
[2018-07-01] MEDS: SEVELAMER CARBONATE 800 MG TABLET PO ×3 (09:40→17:17)
[2018-07-01 09:51] LABS: Ferritin 1081 ng/mL (26-388); Iron 36 ug/dL (65-175); Iron Binding Capacity,Total 182 ug/dL (250-450); PERCENT IRON SATURATION 19.8 % (15.0-55.0)
--- NOTE | 2018-07-01 10:37 | PN_ITS ---
Patient Problems: Active and Suspected Problems Near syncope (Acute) Hypotension (Acute) Subjective: Patient seen and examined. Continues to have generalized weakness. Denies further dizziness. Complains of right great toe pain which she describes as shooting. Complains of constipation. Denies chest pain, shortness of breath. No other complaints at this time. - Physical Exam General: Alert, Oriented x3, Cooperative, No apparent distress HEENT: Atraumatic, PERRLA, EOMI, Normocephalic Neck: Supple, No JVD, Negative Carotid Bruits Lungs: Clear to auscultation, Diminished Cardiovascular: Regular rate, Regular Rhythm, Normal S1, Normal S2, No murmurs Abdomen: Bowel Sounds Present, Soft, Non Tender, Non-Distended, Obese Extremities: No clubbing, No cyanosis, No edema, Capillary Refill Less than 3 Seconds, - - Left upper extremity AV fistula Skin: No rashes, No breakdown Musculoskeletal: No Tenderness to Palpation of Joints or Extremities, Tenderness - Right great toe Neurological: Cranial nerves II-XII grossly intact, Neuro grossly intact Psych/Mental Status: Normal Affect, Appropriate Vital Signs Temp Pulse Resp BP Pulse Ox 98.7 F 63 16 124/65 H 98 07/01/18 09:00 07/01/18 09:00 07/01/18 09:00 07/01/18 09:00 07/01/18 09:00 Oxygen Delivery Method Room Air Weight: 186 lb 15.232 oz Body Mass Index (BMI) 34.0 Orthostatic Vital Signs Start: 07/01/18 05:14 Freq: q24h Status: Active Protocol: Activity Type Activity Date Activity User E-Sign Co-Sign Detail Recorded Client Recorded Date Recorded By Document 07/01/18 05:14 [facility] [id number] 07/01/18 05:21 [facility] 07/01/18 05:14 Orthostatic Vitals Standing -Blood Pressure (90/60-120/80) 101/49 L -Extremity Use Right Arm -Pulse Rate (60-100) 118 H Sitting -Blood Pressure (90/60-120/80) 110/56 L -Extremity Use Right Arm -Pulse Rate (60-100) 83 Lying -Blood Pressure (90/60-120/80) 119/53 L -Extremity Use Right Arm -Pulse Rate (60-100) 65 Intake and Output for Last 24 Hours 06/29/18 06/30/18 07/01/18 23:59 23:59 23:59 Intake Total 240 / 240 689.6 / 689.6 Output Total 50 / 50 110 / 110 Balance 190 / 190 579.6 / 579.6 Laboratory Tests Past 24 Hrs 06/30/18 06/30/18 06/30/18 15:50 17:40 18:46 WBC RBC Hgb Hct MCV MCH MCHC RDW RDW Differential Plt Count MPV Immature Gran % (Auto) Neut % (Auto) Lymph % (Auto) Desha % (Auto) Eos % (Auto) Baso % (Auto) Absolute Neuts (auto) Absolute Lymphs (auto) Total Counted Iron TIBC Iron Saturation Ferritin Troponin I < 0.015 0.016 TSH Urine Color Tamara Urine Clarity Turbid Urine pH 7.0 Ur Specific [place] 1.010 Urine Protein 500 H Urine Glucose (UA) Normal Urine Ketones Negative Urine Occult Blood 250 H Urine Nitrite Negative Urine Bilirubin Negative Urine Urobilinogen Normal Ur Leukocyte Esterase 500 H Urine RBC 0 SEEN Urine WBC >100 SEEN Ur Squamous Epith Cells 0 SEEN Urine Bacteria 0 SEEN Urine Mucus 0 SEEN 07/01/18 07/01/18 07/01/18 05:35 05:35 05:35 WBC 5.3 RBC 2.66 L Hgb 8.0 L Hct 25.4 L MCV 95.5 H MCH 30.1 MCHC 31.5 L RDW 15.5 H RDW Differential 54.1 H Plt Count 135 L MPV 8.4 Immature Gran % (Auto) 0.400 Neut % (Auto) 58.8 Lymph % (Auto) 27.5 Desha % (Auto) 11.4 H Eos % (Auto) 1.7 Baso % (Auto) 0.2 Absolute Neuts (auto) 3.1 Absolute Lymphs (auto) 1.45 Total Counted Not Reportable Iron 36 L TIBC 182 L Iron Saturation 19.8 Ferritin 1081 H Troponin I TSH 1.91 Urine Color Urine Clarity Urine pH Ur Specific [place] Urine Protein Urine Glucose (UA) Urine Ketones Urine Occult Blood Urine Nitrite Urine Bilirubin Urine Urobilinogen Ur Leukocyte Esterase Urine RBC Urine WBC Ur Squamous Epith Cells Urine Bacteria Urine Mucus Medical Necessity - Tobacco Use Smoking Status: Former smoker Assessment/Plan All Active Problems Transient expressive aphasia (Resolved) Near syncope (Acute) Hypotension (Acute) 1. Presyncope, generalized weakness-occurred after dialysis treatment 2017. Patient reports feeling well prior to dialysis treatment. Suspect secondary to hypotension as a result of fluid removal during dialysis. Orthostatic vitals negative. Troponin negative. Echocardiogram ordered, pending. PT/OT. Neuro assessment unremarkable. 2. Acute anemia on anemia of chronic disease/iron deficiency anemia-baseline hemoglobin 10-11. Hemoglobin currently 8.0. Trend H&H. Stool for occult blood pending. Iron studies show iron deficiency anemia. Patient states he has not had colonoscopy since 2006 and states colonoscopy was normal at that time. Begin iron supplementation. Possibly secondary to recent TURP, however rule out GI causes as well. Begin PPI. Consult surgery. Discussed with Dr. Martinez per Dr. Page. Clear liquids pending surgical evaluation. 3. End-stage renal disease on hemodialysis-nephrology consulted. HD M,W,F. Creatinine stable. 4. BPH with recent TURP 06/23/18. Patient continues to have three-way Castillo catheter. He is to follow-up next week with Dr. Moore. Continue Flomax regimen. Urinalysis with 500 leukocytes, occult blood 250. Negative nitrate. Castillo catheter without josiane blood noted. Urine culture pending. 5. History of DVT bilateral internal jugular vein-previously on Coumadin which has since been discontinued. 6. Hypertension-stable. Continue home metoprolol regimen. 7. Morbid obesity- Encourage diet and lifestyle modifications. Nutrition consult. DVT prophylaxis-SCDs. Pharmacologic prophylaxis contraindicated secondary to # 2. Discharge planning: Home with resumed home PT pending further workup as noted above. at bedside denies further home needs. This patient was seen by NO Howard under the supervision of Dr. Page.
[2018-07-01 10:54] LABS: Uric Acid 6.8 mg/dL (3.5-7.2)
--- NOTE | 2018-07-01 11:06 | PCM.CONS.R ---
Problem List (1) ESRD (end stage renal disease) Status: Chronic Consultation - Renal PCP/ Referring MD: Requesting physician: [] Primary care physician: Dona Santiago - History of Present Illness History of Present Illness: The patient is a 78 year old M past medical history of end-stage renal disease on Thursday schedule ( patient goes to [facility] ), hypertension , BPH status post TURP on 06/23/2018 . Patient presented yesterday with an episode of presyncope , lightheadedness . Patient had his hemodialysis session with ultrafiltration 2.2 L. Blood pressure at time of discharge from the dialysis unit was 112/56. Patient went home and suddenly he started to feel lightheadedness and he was about to pass out. In ED, blood pressure was 95/58 orthostatic vital signs were negative. Patient was given a bolus of IV normal saline. Blood pressure improved. Patient also was found to be anemic. Baseline hemoglobin around 10-11. Patient presented with a hemoglobin 8.0. Patient feels better today. No dizziness. No shortness of breath. No nausea no vomiting. He admitted feeling generalized weakness. Review of systems: 12 systems review is negative except what mentioned in HPI - Allergies Allergies: Allergies Sulfa (Sulfonamide Antibiotics) Allergy (Severe, Verified 06/30/18 12:21) Hives - Current Medications Current Medications: Current Medications Acetaminophen (Tylenol) 650 mg PO Q6H PRN PRN PRN Reason: Mild Pain (scale 0-3)/T>100.7 Al Hydroxide/Mg Hydroxide (Mylanta Ii) 30 ml PO Q6H PRN PRN PRN Reason: Gastric Burning Bisacodyl (Dulcolax) 10 mg RECTAL DAILY PRN PRN PRN Reason: Constipation Ciprofloxacin HCl (Cipro) 250 mg PO DAILY [facility] Stop: 07/02/18 10:01 Ferrous Sulfate (Ferrous Sulfate) 325 mg PO BIDCM [facility] Pantoprazole Sodium 40 mg/ (Sodium Chloride) 110 mls @ 330 mls/hr IV Q12 [facility] Iron Sucrose 200 mg/ Sodium (Chloride) 110 mls @ 220 mls/hr IV X1 [facility] Stop: 07/01/18 11:59 Metoprolol Tartrate (Lopressor (Beta Minoo)) 25 mg PO BID [facility] Last Admin: 07/01/18 09:40 Dose: 25 mg Midodrine (Proamatine) 10 mg PO TID [facility] Last Admin: 07/01/18 05:26 Dose: 10 mg Nutritional Formula (Nepro Carb Steady) 120 ml PO 4X/DAY [facility] Last Admin: 07/01/18 10:24 Dose: Not Given Ondansetron HCl (Zofran) 4 mg IV Q8H PRN PRN PRN Reason: Nausea Oxycodone HCl (Oxyir) 5 mg PO Q6H PRN PRN PRN Reason: Moderate Pain (pain scale 4-5) Senna/Docusate Sodium (Senokot-S, Inocencia-Colace) 1 tablet PO BID PRN PRN Reason: Constipation Last Admin: 07/01/18 05:26 Dose: 1 tablet Sevelamer Carbonate (Renvela) 800 mg PO TIDCM [facility] Last Admin: 07/01/18 09:40 Dose: 800 mg Sodium Chloride () 5 - 30 ml IV UD PRN PRN Reason: SALINE FLUSH Tamsulosin HCl (Flomax) 0.4 mg PO BID [facility] Last Admin: 07/01/18 09:40 Dose: 0.4 mg - 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) Morbid obesity (Chronic) Benign prostatic hypertrophy (Chronic) Hypertension (Chronic) Nephrotic syndrome (Chronic) - Past Surgical History Surgical History: colectomy - bowel obstruction-remote - Social History Smoking Status: Former smoker - Family History Maternal History Items: No pertinent history Paternal History Items: No pertinent history Patient Problems: Active and Suspected Problems Near syncope (Acute) Hypotension (Acute) - Physical Exam General: Alert, Oriented x3 HEENT: Atraumatic Oral: Moist Mucosa Neck: Supple, No JVD Lungs: Clear to auscultation, Normal air movement, No rhonchi, No wheeze Cardiovascular: Regular rate, Regular Rhythm, Normal S1, Normal S2 Abdomen: Bowel Sounds Present, Soft, Non Tender Extremities: No clubbing, No cyanosis, No edema Skin: No rashes Musculoskeletal: No Tenderness to Palpation of Joints or Extremities Lymphatic: No Cervical, Supraclavicular, or Inguinal Adenopathy, Supraclavicular Adenopathy Neurological: Cranial nerves II-XII grossly intact, Neuro grossly intact Vital Signs Temp Pulse Resp BP Pulse Ox 98.7 F 63 16 124/65 H 98 07/01/18 09:00 07/01/18 09:40 07/01/18 09:00 07/01/18 09:40 07/01/18 09:00 Oxygen Delivery Method Room Air Weight: 84.8 kg Body Mass Index (BMI) 34.0 Orthostatic Vital Signs Start: 07/01/18 05:14 Freq: q24h Status: Active Protocol: Activity Type Activity Date Activity User E-Sign Co-Sign Detail Recorded Client Recorded Date Recorded By Document 07/01/18 05:14 [facility] [id number] 07/01/18 05:21 [facility] 07/01/18 05:14 Orthostatic Vitals Standing -Blood Pressure (90/60-120/80) 101/49 L -Extremity Use Right Arm -Pulse Rate (60-100) 118 H Sitting -Blood Pressure (90/60-120/80) 110/56 L -Extremity Use Right Arm -Pulse Rate (60-100) 83 Lying -Blood Pressure (90/60-120/80) 119/53 L -Extremity Use Right Arm -Pulse Rate (60-100) 65 Intake and Output for Last 24 Hours 06/29/18 06/30/18 07/01/18 23:59 23:59 23:59 Intake Total 240 / 240 689.6 / 689.6 Output Total 50 / 50 110 / 110 Balance 190 / 190 579.6 / 579.6 Laboratory Tests Past 24 Hrs 06/30/18 06/30/18 06/30/18 15:50 17:40 18:46 WBC RBC Hgb Hct MCV MCH MCHC RDW RDW Differential Plt Count MPV Immature Gran % (Auto) Neut % (Auto) Lymph % (Auto) [place] % (Auto) Eos % (Auto) Baso % (Auto) Absolute Neuts (auto) Absolute Lymphs (auto) Total Counted Uric Acid Iron TIBC Iron Saturation Ferritin Troponin I < 0.015 0.016 TSH Urine Color Tamara Urine Clarity Turbid Urine pH 7.0 Ur Specific [place] 1.010 Urine Protein 500 H Urine Glucose (UA) Normal Urine Ketones Negative Urine Occult Blood 250 H Urine Nitrite Negative Urine Bilirubin Negative Urine Urobilinogen Normal Ur Leukocyte Esterase 500 H Urine RBC 0 SEEN Urine WBC >100 SEEN Ur Squamous Epith Cells 0 SEEN Urine Bacteria 0 SEEN Urine Mucus 0 SEEN 07/01/18 07/01/18 07/01/18 05:35 05:35 05:35 WBC 5.3 RBC 2.66 L Hgb 8.0 L Hct 25.4 L MCV 95.5 H MCH 30.1 MCHC 31.5 L RDW 15.5 H RDW Differential 54.1 H Plt Count 135 L MPV 8.4 Immature Gran % (Auto) 0.400 Neut % (Auto) 58.8 Lymph % (Auto) 27.5 [place] % (Auto) 11.4 H Eos % (Auto) 1.7 Baso % (Auto) 0.2 Absolute Neuts (auto) 3.1 Absolute Lymphs (auto) 1.45 Total Counted Not Reportable Uric Acid Iron 36 L TIBC 182 L Iron Saturation 19.8 Ferritin 1081 H Troponin I TSH 1.91 Urine Color Urine Clarity Urine pH Ur Specific [place] Urine Protein Urine Glucose (UA) Urine Ketones Urine Occult Blood Urine Nitrite Urine Bilirubin Urine Urobilinogen Ur Leukocyte Esterase Urine RBC Urine WBC Ur Squamous Epith Cells Urine Bacteria Urine Mucus 07/01/18 05:35 WBC RBC Hgb Hct MCV MCH MCHC RDW RDW Differential Plt Count MPV Immature Gran % (Auto) Neut % (Auto) Lymph % (Auto) [place] % (Auto) Eos % (Auto) Baso % (Auto) Absolute Neuts (auto) Absolute Lymphs (auto) Total Counted Uric Acid 6.8 Iron TIBC Iron Saturation Ferritin Troponin I TSH Urine Color Urine Clarity Urine pH Ur Specific [place] Urine Protein Urine Glucose (UA) Urine Ketones Urine Occult Blood Urine Nitrite Urine Bilirubin Urine Urobilinogen Ur Leukocyte Esterase Urine RBC Urine WBC Ur Squamous Epith Cells Urine Bacteria Urine Mucus Assessment/Plan All Active Problems Transient expressive aphasia (Resolved) Near syncope (Acute) Hypotension (Acute) 1-end-stage renal disease on Thursday hemodialysis schedule. Patient goes [facility]. 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 Last hemodialysis session 06/30/2018 with 2.2 L ultrafiltration. Hemodialysis access is left upper extremity AV fistula. No need for hemodialysis session today. I will arrange for hemodialysis session tomorrow as per his chronic schedule with ultrafiltration goal of 1 L. Continue renal diet. 2-anemia: Worsening. Most probably related to acute blood loss from TURP surgery. GI bleed to be ruled out. Patient is on PPI twice a day. Surgery is following for possible EGD/colonoscopy. Received one dose of IV iron 200 mg. 3-hypertension. Patient has history of hypertension. Patient presented with hypotension. Midodrine. Also on Flomax for BPH. I will continue Midrin and the same dose of Flomax. 4-presyncope. Most probably from Flomax high-dose in addition to ultrafiltration during hemodialysis session. Negative orthostatic vital signs changes Pressure is better with IV fluid. Now he is off IV fluid I will limit ultrafiltration tomorrow to 1 L. We will continue to monitor vital signs. 5-BPH status post TURP. Still has hematuria Via Castillo catheter. On Flomax 0.4 mg twice a day. As per the urology team. 6-BMD. Continue sevelamer 800 3 times daily. Will check phosphorus level and PTH in outpatient dialysis unit. Thank you for the consult. Renal team will continue to follow. Plan of care was discussed with Dr. Page. AMISH LYNNE MD [phone]
--- NOTE | 2018-07-01 11:51 | CASEMGMT ---
Face to Face with patient for initial transition planning/care coordination assessment. KALLI BALTAZAR introduced self and role at [facility], pt voices understanding and consents to assessment at this time. Pt is lying in bed in no distress at this time. Pt is A/O x4 at this time and answers questions appropriately at this time. Care providers, pharmacy, and demographics verified. See attached link. Pt/ voice no further concerns/needs at this time. Advised pt to ask for CM if any further questions/concerns/needs arise, voices understanding. CM to follow for any further discharge planning/needs. PLAN[place] KALLI BALTAZAR
--- NOTE | 2018-07-01 12:16 | PCM.CONS.GEN ---
Reason for Consult Date of Consultation: 07/01/18 Reason for Consultation: anemia History of Present Illness: The patient is a 78 year old M was admitted yesterday due to a near syncopal episode after dialysis. He was going up the steps and then gradually started to go down patient did not fall his he is assistance going back down the stairs. His gave most the history is a patient was a little somnolent but did arouse easily and answer simple questions. Patient's labs did show some anemia with hemoglobin now at 8 from 9 previously per patient did recently undergo a TURP on 06/[address] Lr. Patient stated he was not feeling good/week which was new starting yesterday he states that he has been having some nausea when he has been eating but he is got Zofran the last time he was in the hospital and that had been helping. He was able to eat eggs and toast this morning without any issues denies current nausea. Denies any abdominal pain. However he has been eating well per his before this near syncopal episode he has not had a bowel movement since his urological procedure about a week ago. But he has been passing flatus. Patient had his last colonoscopy [place] [address] Aguilar and it was negative no polyps, patient did have an EGD in [address] Khanna which is recommend some Bentyl biopsy did showed some active chronic gastritis at that time. is concerned if scopes are really necessary as we have not checked her been able to check a fecal occult as he has not had a bowel movement yet. 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) Morbid obesity (Chronic) E66.01 Benign prostatic hypertrophy (Chronic) N40.0 Hypertension (Chronic) I10 Nephrotic syndrome (Chronic) N04.9 Allergies Sulfa (Sulfonamide Antibiotics) Allergy (Severe, Verified 06/30/18 12:21) Hives Home Medications: Ambulatory Orders Medication Instructions Recorded Sennosides/Docusate Sodium 1 ea PO PRN PRN 08/07/16 [Docusate Sodium-Senna Tablet] Tamsulosin HCl [Flomax] 0.4 mg PO BID 10/23/16 Metoprolol Tartrate [Lopressor 50 mg PO BID tab 11/03/16 (beta keila)] Midodrine HCl [Proamatine] 10 mg PO MOWEFR 06/17/18 Oxycodone [Oxyir] 5 mg PO Q8H PRN PRN 06/17/18 Sevelamer HCl [Renagel] 800 mg PO TIDCM 06/17/18 Ciprofloxacin [Cipro] 250 mg PO DAILY 06/30/18 Nepro Liquid [Nepro Carb Steady] 120 ml PO BID 06/30/18 Surgical History: Surgical History (Last Updated 02/23/18 @ 15:41 by Kati Dorsey) Presence of surgically created arteriovenous shunt for hemodialysis Z99.2 LUE Surgical History: colectomy - bowel obstruction-remote Lives: Spouse/ Significant Other Smoking Status: Former smoker - *Family History Maternal History Items: No pertinent history Paternal History Items: No pertinent history Review of Systems Constitutional: Denies: Chills, Fever HEENT: Denies: Difficulty Swallowing Cardiovascular: Denies: Chest Pain Gastrointestinal: Reports: Constipation. Denies: Abdominal Pain Patient Problems: Active and Suspected Problems Near syncope (Acute) Hypotension (Acute) - Physical Exam General: Cooperative, No apparent distress HEENT: Atraumatic, Normocephalic Abdomen: Soft, Non Tender - No peritoneal signs, Non-Distended Vital Signs Temp Pulse Resp BP Pulse Ox 98.7 F 58 L 16 124/65 H 98 07/01/18 09:00 07/01/18 11:06 07/01/18 09:00 07/01/18 09:40 07/01/18 09:00 Oxygen Delivery Method Room Air Weight: 186 lb 15.232 oz Body Mass Index (BMI) 34.0 Orthostatic Vital Signs Start: 07/01/18 05:14 Freq: q24h Status: Active Protocol: Activity Type Activity Date Activity User E-Sign Co-Sign Detail Recorded Client Recorded Date Recorded By Document 07/01/18 05:14 [facility] [id number] 07/01/18 05:21 [facility] 07/01/18 05:14 Orthostatic Vitals Standing -Blood Pressure (90/60-120/80) 101/49 L -Extremity Use Right Arm -Pulse Rate (60-100) 118 H Sitting -Blood Pressure (90/60-120/80) 110/56 L -Extremity Use Right Arm -Pulse Rate (60-100) 83 Lying -Blood Pressure (90/60-120/80) 119/53 L -Extremity Use Right Arm -Pulse Rate (60-100) 65 Intake and Output for Last 24 Hours 06/29/18 06/30/18 07/01/18 23:59 23:59 23:59 Intake Total 240 / 240 689.6 / 689.6 Output Total 50 / 50 110 / 110 Balance 190 / 190 579.6 / 579.6 Laboratory Tests Past 24 Hrs 06/30/18 06/30/18 06/30/18 15:50 17:40 18:46 WBC RBC Hgb Hct MCV MCH MCHC RDW RDW Differential Plt Count MPV Immature Gran % (Auto) Neut % (Auto) Lymph % (Auto) [place] % (Auto) Eos % (Auto) Baso % (Auto) Absolute Neuts (auto) Absolute Lymphs (auto) Total Counted Uric Acid Iron TIBC Iron Saturation Ferritin Troponin I < 0.015 0.016 TSH Urine Color Tamara Urine Clarity Turbid Urine pH 7.0 Ur Specific [place] 1.010 Urine Protein 500 H Urine Glucose (UA) Normal Urine Ketones Negative Urine Occult Blood 250 H Urine Nitrite Negative Urine Bilirubin Negative Urine Urobilinogen Normal Ur Leukocyte Esterase 500 H Urine RBC 0 SEEN Urine WBC >100 SEEN Ur Squamous Epith Cells 0 SEEN Urine Bacteria 0 SEEN Urine Mucus 0 SEEN 07/01/18 07/01/18 07/01/18 05:35 05:35 05:35 WBC 5.3 RBC 2.66 L Hgb 8.0 L Hct 25.4 L MCV 95.5 H MCH 30.1 MCHC 31.5 L RDW 15.5 H RDW Differential 54.1 H Plt Count 135 L MPV 8.4 Immature Gran % (Auto) 0.400 Neut % (Auto) 58.8 Lymph % (Auto) 27.5 [place] % (Auto) 11.4 H Eos % (Auto) 1.7 Baso % (Auto) 0.2 Absolute Neuts (auto) 3.1 Absolute Lymphs (auto) 1.45 Total Counted Not Reportable Uric Acid Iron 36 L TIBC 182 L Iron Saturation 19.8 Ferritin 1081 H Troponin I TSH 1.91 Urine Color Urine Clarity Urine pH Ur Specific [place] Urine Protein Urine Glucose (UA) Urine Ketones Urine Occult Blood Urine Nitrite Urine Bilirubin Urine Urobilinogen Ur Leukocyte Esterase Urine RBC Urine WBC Ur Squamous Epith Cells Urine Bacteria Urine Mucus 07/01/18 07/01/18 05:35 12:00 WBC RBC Hgb Pending Hct Pending MCV MCH MCHC RDW RDW Differential Plt Count MPV Immature Gran % (Auto) Neut % (Auto) Lymph % (Auto) [place] % (Auto) Eos % (Auto) Baso % (Auto) Absolute Neuts (auto) Absolute Lymphs (auto) Total Counted Uric Acid 6.8 Iron TIBC Iron Saturation Ferritin Troponin I TSH Urine Color Urine Clarity Urine pH Ur Specific [place] Urine Protein Urine Glucose (UA) Urine Ketones Urine Occult Blood Urine Nitrite Urine Bilirubin Urine Urobilinogen Ur Leukocyte Esterase Urine RBC Urine WBC Ur Squamous Epith Cells Urine Bacteria Urine Mucus Assessment/Plan All Active Problems Transient expressive aphasia (Resolved) Near syncope (Acute) Hypotension (Acute) 78-year-old male admitted for weakness/fatigue, Status post recent TURP on 06/23 2018, anemia 1. Discussed with the that his anemia can be multifactorial due to his end-stage renal disease as well as his recent TURP and there could be a possibility of blood loss from the GI tract as well. Will await the fecal occult test-as I would not be able to scope sent to the earliest next week. If patient is stable he may be able to follow-up as an outpatient for an EGD/colonoscopy as he is due for screening colonoscopy since his last one was in 04/2008. I did review the procedure as well as risk including but not limited to bleeding, perforation, incomplete colonoscopy, poor prep, and anesthesia. Will continue to follow. Brooke Martinez M.D. Pager: [phone] [facility] [address] [place] [address], Outpatient [place], [address] [place] [address] Office: [phone] Code Visit Inpatient E&M: 83029 Init Hosp L1
[2018-07-01] MEDS: Ciprofloxacin 250 MG Tablet PO (12:40)
[2018-07-01 12:45] LABS: Hematocrit 24.6 % (40-54); Hemoglobin 7.7 g/dl (13.0-16.5)
--- NOTE | 2018-07-01 16:37 | CHAPLAIN ---
patient was trying to rest; offered to return at another time or day and patient agreed
[2018-07-01] MEDS: Ferrous Sulfate 325 MG Tablet PO (17:17)
[2018-07-01 18:10] LABS: Hematocrit 25.7 % (40-54)
[2018-07-01] MEDS: Nepro Liquid 120 ML LIQUID PO (21:34)
[2018-07-01] MEDS: 0.9% NaCl Peripheral Flush Adult/Peds IV (21:35)
[2018-07-02] VITALS (9 sets, daily range): BP systolic 114–140; BP diastolic 58–62; PULSE 59–67; RESP 16–18; TEMP 36.8–37; O2SAT 94–98
[2018-07-02 00:53] LABS: Hematocrit 26.5 % (40-54)
[2018-07-02] MEDS: Midodrine HCl 5 MG Tablet 10 MG PO ×2 (05:08→14:29)
[2018-07-02 06:39] LABS: Absolute Neutrophil Count 2.9 X10^3/uL (2.0-7.7); Basophil# 0.01 X10^3/uL; Basophil% 0.2 % (0-1); Eosinophil# 0.08 X10^3/uL; Eosinophils% 1.7 % (0-5); Hematocrit 25.5 % (40-54); Hemoglobin 7.9 g/dl (13.0-16.5); Lymphocyte % 26.9 % (19-41); Mean Platelet Vol. 8.5 fl (6.2-12.0); Monocyte# 0.49 X10^3/uL; Monocyte% 10.1 % (0-10); Neutrophil # 2.92 X10^3/uL (2.7-7.7); Neutrophil % 60.3 % (47-70); Platelet Count 163 K/mm3 (150-450); RBC Distribution Width CV 15.1 % (11.6-14.6); RBC Distribution Width SD 50.3 fl (35.1-43.9); Red Blood Count 2.63 M/mm3 (4.6-6.2); White Blood Count 4.8 K/mm3 (4.4-11.0)
[2018-07-02 06:43] LABS: POSITIVE COUNT NO; POSITIVE DIFFERENTIAL NO; POSITIVE MORPHOLOGY NO
[2018-07-02 07:06] LABS: Anion Gap 9 (5-15); BUN 19 mg/dL (7-18); Chloride 102 mmol/L (98-107); Creatinine, Serum 3.77 mg/dL (0.70-1.30); EST Glomerular Filtration Rate 17 mL/min (>60); Est Glom Filt Rate - Afr Amer 20 mL/min (>60); Estimated Creatinine Clearance 12.27 ml/min; Glucose 89 mg/dL (74-106); Potassium 3.1 mmol/L (3.5-5.1); Sodium Level 139 mmol/L (136-145)
[2018-07-02] MEDS: Ciprofloxacin 250 MG Tablet PO (09:09)
[2018-07-02] MEDS: Tamsulosin HCl 0.4 MG Capsule PO (09:09)
[2018-07-02] MEDS: Ferrous Sulfate 325 MG Tablet PO ×2 (09:09→18:39)
[2018-07-02] MEDS: SEVELAMER CARBONATE 800 MG TABLET PO ×2 (09:09→18:40)
[2018-07-02] MEDS: Metoprolol Tartrate 25 MG Tablet PO (09:09)
[2018-07-02] MEDS: 0.9% NaCl Peripheral Flush Adult/Peds IV (09:10)
--- NOTE | 2018-07-02 11:04 | PCM.PN.SRG ---
Patient Problems: Active and Suspected Problems Near syncope (Acute) Hypotension (Acute) Subjective: FOBT was neg. pt last colonoscopy was negative in 2007, still has some serosang dripping from penis, +urine cx - Physical Exam General: Alert, Cooperative, No apparent distress Abdomen: Soft, Non Tender, Non-Distended Vital Signs Temp Pulse Resp BP Pulse Ox 98.3 F 67 16 114/58 L 97 07/02/18 09:08 07/02/18 09:09 07/02/18 09:08 07/02/18 09:09 07/02/18 09:08 Oxygen Delivery Method Room Air Weight: 185 lb 6.54 oz Intake and Output for Last 24 Hours 06/30/18 07/01/18 07/02/18 23:59 23:59 23:59 Intake Total 1098 / 1787.6 Output Total 215 / 325 90 / 90 Balance 883 / 1462.6 -90 / -90 Microbiology Past 72 Hours 07/01/18 12:15 Stool Occult Blood (CONSTANTINE) - Final Stool Laboratory Tests Past 24 Hrs 07/01/18 07/01/18 07/02/18 12:00 17:59 00:41 WBC RBC Hgb 7.7 L 8.0 L 8.0 L Hct 24.6 L 25.7 L 26.5 L MCV MCH MCHC RDW RDW Differential Plt Count MPV Immature Gran % (Auto) Neut % (Auto) Lymph % (Auto) [place]yer % (Auto) Eos % (Auto) Baso % (Auto) Absolute Neuts (auto) Absolute Lymphs (auto) Total Counted Sodium Potassium Chloride Carbon Dioxide Anion Gap BUN Creatinine Estim Creat Clear Calc Est GFR (MDRD) Af Amer Est GFR (MDRD) Non-Af BUN/Creatinine Ratio Glucose Calcium 07/02/18 07/02/18 05:50 05:50 WBC 4.8 RBC 2.63 L Hgb 7.9 L Hct 25.5 L MCV 97.0 H MCH 30.0 MCHC 31.0 L RDW 15.1 H RDW Differential 50.3 H Plt Count 163 MPV 8.5 Immature Gran % (Auto) 0.800 Neut % (Auto) 60.3 Lymph % (Auto) 26.9 Sawyer % (Auto) 10.1 H Eos % (Auto) 1.7 Baso % (Auto) 0.2 Absolute Neuts (auto) 2.9 Absolute Lymphs (auto) 1.30 Total Counted Not Reportable Sodium 139 Potassium 3.1 L Chloride 102 Carbon Dioxide 28.0 Anion Gap 9 BUN 19 H Creatinine 3.77 H Estim Creat Clear Calc 12.27 Est GFR (MDRD) Af Amer 20 L Est GFR (MDRD) Non-Af 17 L BUN/Creatinine Ratio 5.0 L Glucose 89 Calcium 8.0 L Medical Necessity - Tobacco Use Smoking Status: Former smoker Assessment/Plan All Active Problems Transient expressive aphasia (Resolved) Near syncope (Acute) Hypotension (Acute) 78-year-old male admitted for weakness/fatigue, Status post recent TURP on 06/23 2018, anemia, FOBT negative 1. D/w pt and -he can f/u outpt for EGD/colonoscopy with me or Dr. Aguayo as they have seen him in the past. He c/o nausea will continue protonix, EGD 2011 showed gastritis. Pt and have no further questions Brooke Martinez M.D. Pager: [phone] [facility] [address] [place] [address], Outpatient [place], [address] [place] [address] Office: [phone] Code Visit Inpatient E&M: 05827 Subs Hosp L1
--- NOTE | 2018-07-02 11:28 | PCM.DC ---
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 Call your doctor if you observe: Fever of 101 or Higher, Inability to urinate - Change in pulido output or change in color, more bright red appearing or clots noted., Inability to have a bowel movement, Shortness of breath, Dizziness, Fainting spells, Chest pain, Uncontrolled pain Drain: [place] Instructions: Treating Syncope: Prevention, Understanding Dizziness, Balance Problems, and Fainting, ED Hypotension Orthostatic, When You Have Gastrointestinal (GI) Bleeding, Discharge Instructions for Low Blood Pressure (Hypotension) Additional Instructions: BP medication parameters: Hold BP regimen for systolic blood pressure (top number) < or = 110 and additionally may also hold any beta-keila for heart rate < or = 60. Please have repeat complete blood count with your primary care physician at follow-up. Allergies/Adverse Reactions: Allergies Sulfa (Sulfonamide Antibiotics) Allergy (Severe, Verified 06/30/18 12:21) Hives Medications to take at Discharge Sennosides/Docusate Sodium [Docusate Sodium-Senna Tablet] 1 ea PO PRN PRN 08/07/16 Tamsulosin HCl [Flomax] 0.4 mg PO BID 10/23/16 Metoprolol Tartrate [Lopressor (beta keila)] 50 mg PO BID tab 11/03/16 Midodrine HCl [Proamatine] 10 mg PO MOWEFR 06/17/18 Oxycodone [Oxyir] 5 mg PO Q8H PRN PRN 06/17/18 Sevelamer HCl [Renagel] 800 mg PO TIDCM 06/17/18 Ciprofloxacin [Cipro] 250 mg PO DAILY 06/30/18 Nepro Liquid [Nepro Carb Steady] 120 ml PO BID 06/30/18 Ferrous Sulfate 325 mg PO BIDCM #60 tab 07/02/18 Pantoprazole Sodium [Protonix] 40 mg PO BID #60 tab 07/02/18 The following prescriptions were given: Ferrous Sulfate 325 mg PO BIDCM #60 tab Pantoprazole Sodium [Protonix] 40 mg PO BID #60 tab Primary Care Physician: Dona Santiago MD [Primary Care Provider] - Please follow up with your Primary Care Physician in: Follow-up within 3-5 days to review admission. Test Results: Test results from this visit will be discussed in further detail at your follow-up appointment, if applicable. Please Follow Up With: Etienne Aguayo MD - May opt to see Dr. Martinez also who is with Dr. Aguayo in the same group. When: Please f/u within 1 wk to arrange outpatient endoscopies. Please Follow Up With: Adrian Cosme MD When: Please follow-up with your physician assistant as previously arranged with HD. Please Follow Up With: Aleks Moore MD When: Current follow-up for 07/07/18.Jonathan to yadi.Complete antibiotic therapy. Proposed Discharge Date: 07/02/18
--- NOTE | 2018-07-02 13:47 | PCM.DC.SUM ---
Discharge Date and Diagnosis Date of Admission: 06/30/18 Date of Discharge: 07/02/18 - Primary Discharge Diagnosis Active and Suspected Problems 1. Near syncope, generalized weakness suspected secondary to hypotension as a result of fluid removal during dialysis 2. Hypotension 3. Acute anemia on anemia of chronic disease/iron deficiency anemia 4. 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 Cabrera- Nephrology Dr. Moore- Urology Dr. Martinez- Surgery Operations: None, TURP Procedures: 2-D Echocardiogram Summary of Care Provided: The patient is a 78 year old admitted 06/30/2018 due to near syncope. He has a past medical history of end-stage renal disease on hemodialysis, history of DVT, BPH with recent TURP 06/23/2018, hypertension, morbid obesity. 1. Presyncope, generalized weakness-occurred after dialysis treatment 06/30/2018. Patient reports feeling well prior to dialysis treatment. Suspect secondary to hypotension as a result of fluid removal during dialysis as well as acute on chronic anemia. Orthostatic vitals negative. Troponin negative. Echocardiogram demonstrated an EF of 55%, mild aortic stenosis, RVSP estimated to be 42 mmHg. 2. Acute anemia on anemia of chronic disease/iron deficiency anemia-baseline hemoglobin 10-11. Hemoglobin 7.9 at discharge. Stool for occult blood negative. Iron studies show iron deficiency anemia. Patient states he has not had colonoscopy since 2006 and states colonoscopy was normal at that time. Begin iron supplementation. Possibly secondary to recent TURP. Surgery consulted who plans on outpatient follow-up for EGD/colonoscopy. Patient will continue iron supplementation and PPI at discharge with further evaluation by general surgery. 3. End-stage renal disease on hemodialysis-nephrology consulted. HD M,W,F. Creatinine stable. 4. BPH with recent TURP 06/23/18. Patient continues to have three-way Pulido catheter. He is to follow-up next week with Dr. Moore. Continue Flomax regimen. Urinalysis with 500 leukocytes, occult blood 250. Negative nitrate. Pulido catheter without josiane blood noted. 5. History of DVT bilateral internal jugular vein-previously on Coumadin which has since been discontinued. 6. Hypertension-stable. Continue home metoprolol regimen. 7. Morbid obesity- Encourage diet and lifestyle modifications. Nutrition consult. General: Alert, Oriented x3, Cooperative, No apparent distress HEENT: Atraumatic, PERRLA, EOMI, Normocephalic Neck: Supple, No JVD, Negative Carotid Bruits Lungs: Clear to auscultation, Diminished Cardiovascular: Regular rate, Regular Rhythm, Normal S1, Normal S2, No murmurs Abdomen: Bowel Sounds Present, Soft, Non Tender, Non-Distended, Obese Extremities: No clubbing, No cyanosis, No edema, Capillary Refill Less than 3 Seconds, - - Left upper extremity AV fistula Skin: No rashes, No breakdown Musculoskeletal: No Tenderness to Palpation of Joints or Extremities, Tenderness - Right great toe Neurological: Cranial nerves II-XII grossly intact, Neuro grossly intact Psych/Mental Status: Normal Affect, Appropriate Patient seen exam prior to discharge. Physical assessment as noted above. Patient stable for discharge home with the follow-up recommendations as noted above. This patient was seen by NO Howard under the supervision of Dr. Page. Discharge Diet: Low fat/ Low Cholesterol, Renal Diet Discharge Activity: - - Avoid aggressive activity until cleared per Primary Care Physician. Call your doctor if you observe: Fever of 101 or Higher, Inability to urinate - Change in pulido output or change in color, more bright red appearing or clots noted., Inability to have a bowel movement, Shortness of breath, Dizziness, Fainting spells, Chest pain, Uncontrolled pain Drain: [place] Home Medications: Medications to take at Discharge Sennosides/Docusate Sodium [Docusate Sodium-Senna Tablet] 1 ea PO PRN PRN 08/07/16 Tamsulosin HCl [Flomax] 0.4 mg PO BID 10/23/16 Metoprolol Tartrate [Lopressor (beta keila)] 50 mg PO BID tab 11/03/16 Midodrine HCl [Proamatine] 10 mg PO MOWEFR 06/17/18 Oxycodone [Oxyir] 5 mg PO Q8H PRN PRN 06/17/18 Sevelamer HCl [Renagel] 800 mg PO TIDCM 06/17/18 Ciprofloxacin [Cipro] 250 mg PO DAILY 06/30/18 Nepro Liquid [Nepro Carb Steady] 120 ml PO BID 06/30/18 Ferrous Sulfate 325 mg PO BIDCM #60 tab 07/02/18 Pantoprazole Sodium [Protonix] 40 mg PO BID #60 tab 07/02/18 Following Prescrptions Were Given to Patient: Ferrous Sulfate 325 mg PO BIDCM #60 tab Pantoprazole Sodium [Protonix] 40 mg PO BID #60 tab Primary Care Physician: Dona Santiago MD [Primary Care Provider] - Please follow up with your Primary Care Physician in: Follow-up within 3-5 days to review admission. Please Follow Up With: Etienne Aguayo MD When: Please f/u within 1 wk to arrange outpatient endoscopies. Please Follow Up With: Adrian Cosme MD When: Please follow-up with your childcare teacher as previously arranged with HD. Please Follow Up With: Aleks Moore MD When: Current follow-up for 07/07/18.Pulido to remain.Complete antibiotic therapy. Patient Instructions: When You Have Gastrointestinal (GI) Bleeding, Treating Syncope: Prevention, Understanding Dizziness, Balance Problems, and Fainting, Discharge Instructions for Low Blood Pressure (Hypotension), ED Hypotension Orthostatic Disposition: Home with Home Health Minutes spent on discharge:: 35 Patient Condition:: Stable Medical Necessity - Tobacco Use Smoking Status: Former smoker Meaningful Use Info Meaningful Use Diagnoses (Choose all that apply): None applicable
--- NOTE | 2018-07-02 14:10 | PCM.PN.BLA ---
Progress Note Patient was seen during hemodialysis session. Patient is tolerating the session well. Blood flow rate 3 50 cc/min. dialysate flow rate 600 cc/min. ultrafiltration 1 L. Heart: S1-S2 RRR Chest: Clear to auscultation. Blood pressure 114/50. Heart rate 67. Okay to discharge the patient after hemodialysis if blood pressure remains stable. Plan of care was discussed with Dr. Camilo Cosme MD
--- NOTE | 2018-07-02 18:45 | DIALYSIS ---
Hemodialysis tx completed x 3.5 hours without complications. Pt tolerated tx well. Fluid removed 1,000ml. Vitals stable through out tx. Verbal report given to KALLI Caldwell post tx. Next scheduled dialysis tx 07/05/2018.
--- NOTE | 2018-07-05 15:49 | CASEMGMT ---
Addendum entered by Reba Paul 07/09/18 14:20: Pt's had left this RN CM a message to call her back. Call placed back to pt's at this time without success. Message left for pt's to call this RN CM back when available. Murray MAHAN CM Original Note: RN CM Discharge F/U Phone Call LACE: 9 Strata: 3 Discharge date: 07/02/18 Call date: 07/05/18 Call time: 1550 Attempted to reach pt without success at this time, message left for pt to call this RN CM back. Murray MAHAN CM Admission dx: Weakness, anemia, CRF, Near syncope
== END 2018-07-02 19:23 | disposition home or self-care (01) | DRG 811 ==
LOC: ED 12:47 → PCU 13:44
PROVIDERS: Nurse Practitioner Family; Admitting Provider Internal Medicine; Emergency Provider Emergency Medicine; Family Provider Internal Medicine; PCP Internal Medicine; Visit Provider Family Medicine
DX: D50.9 Iron deficiency anemia, unspecified (principal); N18.6 End stage renal disease; I12.0 Hypertensive chronic kidney disease with stage 5 chronic kidney disease or end stage renal disease; K92.2 Gastrointestinal hemorrhage, unspecified; D50.0 Iron deficiency anemia secondary to blood loss (chronic); Z99.2 Dependence on renal dialysis; Z66 Do not resuscitate; Z86.718 Personal history of other venous thrombosis and embolism; N40.0 Benign prostatic hyperplasia without lower urinary tract symptoms; E66.01 Morbid (severe) obesity due to excess calories; Z68.34 Body mass index [BMI] 34.0-34.9, adult; R53.81 Other malaise; R53.1 Weakness; R55 Syncope and collapse; I95.3 Hypotension of hemodialysis; Z86.73 Personal history of transient ischemic attack (TIA), and cerebral infarction without residual deficits; D63.8 Anemia in other chronic diseases classified elsewhere; Z90.79 Acquired absence of other genital organ(s); R31.29 Other microscopic hematuria
CPT/HCPCS: 36415; 80048; 80053; 81001; 82274; 82728; 83540; 83550; 83690; 83735; 84443; 84484; 84550; 85014; 85018; 85025; 87077; 87086; 87088; 87186; 90937; 93005; 93306; 97162; 97166; 97802; 99285; J1756; J7030; J7040; A4216; G0257

== ENCOUNTER 2018-09-12 21:01 | Inpatient (IN) | payer MEDICARE, OTHER, SELFPAY ==
[2018-09-12 21:02] VITALS: BP 118/62; PULSE 72; RESP 28; TEMP 37.9; O2SAT 93; BMI 34.7
--- NOTE | 2018-09-12 21:45 | EKG12_ITS ---
Test Reason : WEAKNESS Blood Pressure : / mmHG Vent. Rate : 065 BPM Atrial Rate : 065 BPM P-R Int : 166 ms QRS Dur : 080 ms QT Int : 390 ms P-R-T Axes : 010 -12 022 degrees QTc Int : 405 ms Normal sinus rhythm Possible Anterior infarct , age undetermined Inferior MD,age undetermined Abnormal ECG Confirmed by TACHO PUCKETT, ANTONIETA ([id number]), technical writer and editor JAMEEL PENG ([id number]) on 09/14/2018 10:29:55 AM Referred By: RENITA Confirmed By:ANTONIETA TITUS MD
--- NOTE | 2018-09-12 22:11 | RAD_ITS ---
STUDY: X-RAY CHEST REASON FOR EXAM: Male, 78 years old. Chest pain and weakness TECHNIQUE: PA and lateral views of the chest. COMPARISON: 05/25/2018 FINDINGS: There are interstitial fibrotic changes of the lungs. There is no demonstrated pleural abnormality. Normal size heart. Normal mediastinum and marcia. Normal visualized pulmonary arteries. Normal visualized aortic arch and descending thoracic aorta. There are diffuse degenerative changes of the visualized thoracic spine. Normal visualized ribs, clavicles, and shoulders. There is no demonstrated abnormality of the visualized soft tissue structures of the upper abdomen. RAD/Chest PA and Lateral IMPRESSION: Chronic interstitial changes, no superimposed acute pulmonary process Electronically Signed: Claude Shelby MD at 22:34 EDT , Service support ,
[2018-09-12 22:22] LABS: Absolute Lymphocyte Count 0.99 X10^3/ul (0.83-4.51); Absolute Neutrophil Count 5.2 X10^3/uL (2.0-7.7); Basophil# 0.01 X10^3/uL; Basophil% 0.1 % (0-1); Eosinophil# 0.02 X10^3/uL; Eosinophils% 0.3 % (0-5); Hematocrit 37.7 % (40-54); Lymphocyte # 0.99 X10^3/ul (4.0); Mean Corp Hgb Conc 31.8 g/gl (32-36); Mean Corpuscular Hgb 29.9 pg (27.0-32.0); Mean Corpuscular Volume 93.8 fL (80-94); Mean Platelet Vol. 8.9 fl (6.2-12.0); Monocyte# 0.91 X10^3/uL; Monocyte% 12.8 % (0-10); Neutrophil # 5.15 X10^3/uL (2.7-7.7); Neutrophil % 72.7 % (47-70); Platelet Count 102 K/mm3 (150-450); RBC Distribution Width CV 14.7 % (11.6-14.6); RBC Distribution Width SD 50.2 fl (35.1-43.9); Red Blood Count 4.02 M/mm3 (4.6-6.2); White Blood Count 7.1 K/mm3 (4.4-11.0)
[2018-09-12 22:23] LABS: POSITIVE COUNT NO; POSITIVE DIFFERENTIAL NO
[2018-09-12 22:33] LABS: International Normalized Ratio 1.2
[2018-09-12 22:38] LABS: ALB/GLOB Ratio 0.5 RATIO (0.9-2.4); AST(SGOT) 19 U/L (15-37); Alanine Aminotransfer ALT/SGPT 24 U/L (16-61); Albumin, Serum 2.2 g/dL (3.2-5.0); Alkaline Phosphatase 101 U/L (45-117); Anion Gap 11 (5-15); BUN 37 mg/dL (7-18); BUN/Creat Ratio 7.2 RATIO (10-20); Calcium,Total 10.7 mg/dL (8.5-10.1); Chloride 95 mmol/L (98-107); Creatinine, Serum 5.14 mg/dL (0.70-1.30); EST Glomerular Filtration Rate 12 mL/min (>60); Est Glom Filt Rate - Afr Amer 14 mL/min (>60); Estimated Creatinine Clearance 9.38 ml/min; Globulin 4.8 g/dL (2.2-4.2); Glucose 119 mg/dL (74-106); Potassium 3.6 mmol/L (3.5-5.1); Sodium Level 133 mmol/L (136-145)
--- NOTE | 2018-09-12 22:54 | ED.VISSUMM ---
- ER Visit Summary Date of Service: 09/12/18 Chief Complaint: General weakness History of Present Illness: The patient is a 78 M who presents with weakness that began today. Patient states he is having more difficulty standing after he lays down. Patient states his legs and arms feel weak. Patient states he was having pain in his arms and chest. Patient denies any shortness of breath. Patient admits to a cough but denies any sputum. Patient states he had a subjective fever earlier today. Patient has a history of end-stage renal disease but denies any dysuria or hematuria. Patient states he urinates twice daily. Physical Examination: Vital signs are stable except for mild tachypnea of 28. Patient has a temperature of 100.3 here. Also oximeter is 93% on room air. Oral mucosa is pink and moist. Neck is supple. Trachea is midline. There is no JVD noted. Heart was regular rate and rhythm. Lungs are diminished bilaterally but clear. Abdomen is soft. Bowel sounds are normal. There is no tenderness noted. Extremities are intact. There is no edema noted. Cranial nerves II through XII are intact. There are no focal motor or sensory deficits noted. The remaining physical exam is within normal limits. Test Results: EKG showed normal sinus rhythm with a rate of 65. There are no acute ST or T wave changes noted. CBC, comprehensive metabolic profile, PT with INR, PTT, and troponin were obtained and were essentially within normal limits. BUN and creatinine were elevated at 37 and 5.14 however, these are consistent with prior laboratory values. PA and lateral chest x-ray was obtained. There are chronic changes but no acute infiltrate. Emergency Department Course and Treatment: Patient was placed on oxygen by nasal cannula. Case was discussed with Dr. Page. She will admit the patient for observation. Patient and family understood and were agreeable with the plan. All questions were answered. Disposition: Admit for observation Impression: 1. Generalized weakness This note was generated with [employer]zz dictation software. It may contain incorrect words, spelling, and punctuation that were not noted in review of the chart prior to signing ED Disposition - Plan for ED Patient: Disposition: Acute Care Hospital [facility] Chief Complaint: Weakness Diagnosis: Generalized weakness Referrals: Dona Santiago MD [Primary Care Provider] -
--- NOTE | 2018-09-12 22:59 | ED.DCSUM_ITS ---
- ER Visit Summary Date of Service: 09/12/18 Chief Complaint: General weakness History of Present Illness: The patient is a 78 M who presents with weakness that began today. Patient states he is having more difficulty standing after he lays down. Patient states his legs and arms feel weak. Patient states he was having pain in his arms and chest. Patient denies any shortness of breath. Patient admits to a cough but denies any sputum. Patient states he had a subjective fever earlier today. Patient has a history of end-stage renal disease but denies any dysuria or hematuria. Patient states he urinates twice daily. Physical Examination: Vital signs are stable except for mild tachypnea of 28. Patient has a temperature of 100.3 here. Also oximeter is 93% on room air. Oral mucosa is pink and moist. Neck is supple. Trachea is midline. There is no JVD noted. Heart was regular rate and rhythm. Lungs are diminished bilaterally but clear. Abdomen is soft. Bowel sounds are normal. There is no tenderness noted. Extremities are intact. There is no edema noted. Cranial nerves II through XII are intact. There are no focal motor or sensory deficits noted. The remaining physical exam is within normal limits. Test Results: EKG showed normal sinus rhythm with a rate of 65. There are no acute ST or T wave changes noted. CBC, comprehensive metabolic profile, PT with INR, PTT, and troponin were obtained and were essentially within normal limits. BUN and creatinine were elevated at 37 and 5.14 however, these are consistent with prior laboratory values. PA and lateral chest x-ray was obtained. There are chronic changes but no acute infiltrate. Emergency Department Course and Treatment: Patient was placed on oxygen by nasal cannula. Case was discussed with Dr. Page. She will admit the patient for observation. Patient and family understood and were agreeable with the plan. All questions were answered. Disposition: Admit for observation Impression: 1. Generalized weakness This note was generated with [employer] dictation software. It may contain incorrect words, spelling, and punctuation that were not noted in review of the chart prio r to signing ED Disposition - Plan for ED Patient: Disposition: Acute Care [facility] Chief Complaint: Weakness Diagnosis: Generalized weakness Referrals: Dona Santiago MD [Primary Care Provider] -
--- NOTE | 2018-09-12 23:07 | PCM.HP.STD ---
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 (5) Benign prostatic hypertrophy Status: Chronic Qualifiers: Lower urinary tract symptom presence: unspecified whether lower urinary tract symptoms present Qualified Code(s): N40.0 - Benign prostatic hyperplasia without lower urinary tract symptoms (6) Hypertension Status: Chronic Qualifiers: Hypertension type: essential hypertension Qualified Code(s): I10 - Essential (primary) hypertension (7) Nephrotic syndrome Status: Chronic History of Present Illness Date of Admission: 09/12/18 Chief Complaint: Fatigue, weakness, cough The patient is a 78 y/o F w/ PMHx: ESRD on HD, Obesity, HTN, History of DVT, BPH s/p TURP, History of TIA, AOCD/Fe deficiency anemia, GERD, Former Tobacco use who presents to the [facility] ED on 09/12/18 with history of progressively worsening weakness, non-productive cough, dyspnea worse with exertion recently with onset fever. notes he very suddenly starting today also lost his appetite and has had poor oral intake. In the ED work-up included T 100.3, heart rate 72, BP 118/62, respiratory rate 28, 93% on room air, CBC with WBC 7.1, heme globin 12, platelet 102 without market shift, coags with PT 15, INR 1.2, PTT 32, CMP with sodium 133, chloride 95, BUN/creatinine 37/5.14, glucose 119, calcium 10.7, troponin <0.015, CXR with chronic interstitial changes, Bld Cx x 2 obtained per ED, EKG w/ SR without acute evidence of ischemia. ED UA straight catheterization pending per discussion ED. 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) Morbid obesity (Chronic) E66.01 Benign prostatic hypertrophy (Chronic) N40.0 Hypertension (Chronic) I10 Nephrotic syndrome (Chronic) N04.9 Allergies Sulfa (Sulfonamide Antibiotics) Allergy (Severe, Verified 09/12/18 21:01) Hives Home Medications: Ambulatory Orders Medication Instructions Recorded Sennosides/Docusate Sodium 1 ea PO PRN PRN 08/07/16 [Docusate Sodium-Senna Tablet] Tamsulosin HCl [Flomax] 0.4 mg PO BID 10/23/16 Metoprolol Tartrate [Lopressor 50 mg PO BID tab 11/03/16 (beta keila)] Midodrine HCl [Proamatine] 10 mg PO MOWEFR 06/17/18 Oxycodone [Oxyir] 5 mg PO Q8H PRN PRN 06/17/18 Sevelamer HCl [Renagel] 800 mg PO TIDCM 06/17/18 Nepro Liquid [Nepro Carb Steady] 120 ml PO BID 06/30/18 Ferrous Sulfate 325 mg PO BIDCM #60 tab 07/02/18 Pantoprazole Sodium [Protonix] 40 mg PO BID #60 tab 07/02/18 Surgical History: Surgical History (Last Updated 02/23/18 @ 15:41 by Kati Dorsey) Presence of surgically created arteriovenous shunt for hemodialysis Z99.2 LUE Surgical History: - - Bowel resection secondary to bowel obstruction w/ ventral hernia repair, AVF, R TKR, TURP. Psychiatric History: No pertinent psych hx Lives: Spouse/ Significant Other Smoking Status: Former smoker - Quit 1980. Tobacco Use: Non-smoker Alcohol: None Drugs: None - *Family History Maternal History Items: - - Patient denies any marked maternal or paternal family history including HD, DM, CA. Paternal History Items: - - Patient denies any marked maternal or paternal family history including HD, DM, CA. Review of Systems Constitutional: Reports: Anorexia, Chills, Fever, Malaise, Weakness, Fatigue. Denies: Weight Change HEENT: Denies: Head Aches, Sinus Congestion, Sinus Drainage Cardiovascular: Denies: Chest Pain, Palpitations Respiratory: Reports: Cough, Shortness of breath upon exertion. Denies: Shortness of breath at rest, Sputum production Gastrointestinal: Denies: Abdominal Pain, Nausea, Vomiting Genitourinary: Denies: Dysuria Musculoskeletal: Reports: Joint Pain. Denies: Joint Tenderness Skin: Denies: Rash, Wounds Neurological: Reports: Balance problems. Denies: Focal weakness, Numbness, Tingling Psychiatric: Denies: Anxiety, Depression, Homicidal Ideations, Suicidal Ideations Hematologic/ Lymphatic: Reports: Anemia, Easy Bruising, Easy Bleeding VTE Information - Inpt Only VTE Present on Admission: No VTE Mechan Device Prophylaxis: SCD's VTE Pharm Prophylaxis ordered?: Yes Patient Problems: Active and Suspected Problems Acute viral bronchitis (Acute) Subjective: Seated upright in the ED bed, fatigued appearance. Objective: Physical Examination: General: awake, alert, oriented x 3 and cooperative, seated upright in the ED bed in no apparent distress, fatigued appearing. Skin: normal color, turgor, no icterus, cyanosis except occasional abrasion, scab to extremities. HEENT: AT/NC, EOMI, PERRLA, dry MM, no carotid bruits or JVD noted. Lungs: Diminished BS, > BL bases, poor effort, coughing w/ increased effort attempts, no rales, ronchi or wheezing. Heart: Regular rate and rhythm; no gallop, rub audible. Abdomen: soft, obese, NTTP, ND, normal BS, no HSM; however, habitus makes examination difficult. Extremities: no cyanosis, clubbing, or edema, AVF. Neurological: patient awake, alert, oriented x 3; cognitive function intact; pupils equally reactive to light and accomodation; cranial nerves II-XII grossly normal, moving all 4 extremities, no focal deficits, strength severely globally decreased secondary to acute presentation. Psychiatric: affect appears fatigued, flat, no acute evidence of depressive or anxiety feelings. - Physical Exam Vital Signs Temp Pulse Resp BP Pulse Ox 100.3 F H 72 28 H 118/62 93 09/12/18 21:02 09/12/18 21:02 09/12/18 21:02 09/12/18 21:02 09/12/18 21:02 Oxygen Delivery Method Room Air Weight: 195 lb 12.328 oz Body Mass Index (BMI) 34.7 Finger Stick Blood Glucose 116 Laboratory Tests Past 24 Hrs 09/12/18 09/12/18 09/12/18 22:05 22:05 22:05 WBC 7.1 RBC 4.02 L Hgb 12.0 L Hct 37.7 L MCV 93.8 MCH 29.9 MCHC 31.8 L RDW 14.7 H RDW Differential 50.2 H Plt Count 102 L MPV 8.9 Immature Gran % (Auto) 0.100 Neut % (Auto) 72.7 H Lymph % (Auto) 14.0 L [place] % (Auto) 12.8 H Eos % (Auto) 0.3 Baso % (Auto) 0.1 Absolute Neuts (auto) 5.2 Absolute Lymphs (auto) 0.99 Total Counted Not Reportable PT 15.0 H INR 1.2 APTT 32.0 Sodium 133 L Potassium 3.6 Chloride 95 L Carbon Dioxide 27.0 Anion Gap 11 BUN 37 H Creatinine 5.14 H Estim Creat Clear Calc 9.38 Est GFR (MDRD) Af Amer 14 L Est GFR (MDRD) Non-Af 12 L BUN/Creatinine Ratio 7.2 L Glucose 119 H Calcium 10.7 H Total Bilirubin 0.70 AST 19 ALT 24 Alkaline Phosphatase 101 Troponin I < 0.015 Total Protein 7.0 Albumin 2.2 L Globulin 4.8 H Albumin/Globulin Ratio 0.5 L Assessment/Plan All Active Problems Acute viral bronchitis (Acute) Generalized weakness (Acute) Transient expressive aphasia (Resolved) Near syncope (Acute) Hypotension (Acute) The patient is a 78 y/o F w/ PMHx: ESRD on HD, Obesity, HTN, History of DVT, BPH s/p TURP, History of TIA, AOCD/Fe deficiency anemia, GERD, Former Tobacco use who presents to the [facility] ED on 09/12/18 with history of progressively worsening weakness, non-productive cough, dyspnea worse with exertion recently with onset fever. (1) Suspected Acute Viral Bronchitis w/ associated weakness, debility: ED work-up included T 100.3, heart rate 72, BP 118/62, respiratory rate 28, 93% on room air, CBC with WBC 7.1, heme globin 12, platelet 102 without market shift, coags with PT 15, INR 1.2, PTT 32, CMP with sodium 133, chloride 95, BUN/creatinine 37/5.14, glucose 119, calcium 10.7, troponin <0.015, CXR with chronic interstitial changes. UA pending upon admission. Will admit to NH, maintain on oxygen with wean as tolerated to room air, will need oxygenation assessment prior to discharge given current presentation, continue ATC duonebs, PRN albuterol, HOB, IS parameters, obtain respiratory viral panel, obtain sputum Cx, gently hydrate given ESRD status and consider repeat CXR PA and Lateral in AM. PT, OT, CM for discharge planning. (2) Hypertension: Continue home regimen including metoprolol w/ hold parameters, PRN hydralazine. (2) ESRD: HD normally outpatient at the [facility] hemodialysis [place] on MWF, following w/ Dr. Rodgers/Rick who have been consulted, repeat BMP in AM. (3) AOCD/Fe deficiency anemia: Admission Hgb 12, baseline 8-10 range, stable. (4) Orthostasis, Chronic: Following HD notably, will continue home regimen midodrine w/ HD. (5) BPH: s/p TURP, will continue home flomax regimen. (6) History of DVT: Maintain on chemoprophylaxis as noted. (7) GERD: PPI. (8) DVT prophylaxis: SCDs, heparin. (9) CODE status: remains HCPOA and living will is in place. Discussed CODE status including difference between FULL code, DNR-CCA and DNR-CC status. Following discussions about the differences in these status, confirmed DNR-CCA, no intubation status. Advanced Care Planning Face to Face Time: 16 minutes. Code Visit OBSV E&M: 89525 Initial observation care L3 Procedures: 80395 Advncd Care Plan 30 Min
--- NOTE | 2018-09-12 23:19 | HP.PCM_ITS ---
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 (5) Benign prostatic hypertrophy Status: Chronic Qualifiers: Lower urinary tract symptom presence: unspecified whether lower urinary tract symptoms present Qualified Code(s): N40.0 - Benign prostatic hyperplasia without lower urinary tract symptoms (6) Hypertension Status: Chronic Qualifiers: Hypertension type: essential hypertension Qualified Code(s): I10 - Essential (primary) hypertension (7) Nephrotic syndrome Status: Chronic History of Present Illness Date of Admission: 09/12/18 Chief Complaint: Fatigue, weakness, cough The patient is a 78 y/o F w/ PMHx: ESRD on HD, Obesity, HTN, History of DVT, BPH s/p TURP, History of TIA, AOCD/Fe deficiency anemia, GERD, Former Tobacco use wh o presents to the [facility] ED on 09/12/18 with history of progressively worsening weakness, non-productive cough, dyspnea worse with exertion recently with onset fever. notes he very suddenly starting today also lost his appetite and has had poor oral intake. In the ED work-up included T 100.3, heart rate 72, BP 118/62, respiratory rate 28, 93% on room air, CBC with WBC 7.1, heme globin 12, platelet 102 without market shift, coags with PT 15, INR 1.2, PTT 32, CMP with sodium 133, chloride 95, BUN/creatinine 37/5.14, glucose 119, calcium 10.7, troponin <0.015, CXR with chronic interstitial changes, Bld Cx x 2 obtained per ED, EKG w/ SR without acute evidence of ischemia. ED UA straight catheterization pending per discussion ED. 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) Morbid obesity (Chronic) E66.01 Benign prostatic hypertrophy (Chronic) N40.0 Hypertension (Chronic) I10 Nephrotic syndrome (Chronic) N04.9 Allergies Sulfa (Sulfonamide Antibiotics) Allergy (Severe, Verified 09/12/18 21:01) Hives Home Medications: Ambulatory Orders Medication Instructions Recorded Sennosides/Docusate Sodium 1 ea PO PRN PRN 08/07/16 [Docusate Sodium-Senna Tablet] Tamsulosin HCl [Flomax] 0.4 mg PO BID 10/23/16 Metoprolol Tartrate [Lopressor 50 mg PO BID tab 11/03/16 (beta keila)] Midodrine HCl [Proamatine] 10 mg PO MOWEFR 06/17/18 Oxycodone [Oxyir] 5 mg PO Q8H PRN PRN 06/17/18 Sevelamer HCl [Renagel] 800 mg PO TIDCM 06/17/18 Nepro Liquid [Nepro Carb Steady] 120 ml PO BID 06/30/18 Ferrous Sulfate 325 mg PO BIDCM #60 tab 07/02/18 Pantoprazole Sodium [Protonix] 40 mg PO BID #60 tab 07/02/18 Surgical History: Surgical History (Last Updated 02/23/18 @ 15:41 by Kati Dorsey) Presence of surgically created arteriovenous shunt for hemodialysis Z99.2 LUE Surgical History: - - Bowel resection secondary to bowel obstruction w/ ventral hernia repair, AVF, R TKR, TURP. Psychiatric History: No pertinent psych hx Lives: Spouse/ Significant Other Smoking Status: Former smoker - Quit 1980. Tobacco Use: Non-smoker Alcohol: None Drugs: None - *Family History Maternal History Items: - - Patient denies any marked maternal or paternal family history including HD, DM, CA. Paternal History Items: - - Patient denies any marked maternal or paternal family history including HD, DM, CA. Review of Systems Constitutional: Reports: Anorexia, Chills, Fever, Malaise, Weakness, Fatigue. Denies: Weight Change HEENT: Denies: Head Aches, Sinus Congestion, Sinus Drainage Cardiovascular: Denies: Chest Pain, Palpitations Respiratory: Reports: Cough, Shortness of breath upon exertion. Denies: Shortness of breath at rest, Sputum production Gastrointestinal: Denies: Abdominal Pain, Nausea, Vomiting Genitourinary: Denies: Dysuria Musculoskeletal: Reports: Joint Pain. Denies: Joint Tenderness Skin: Denies: Rash, Wounds Neurological: Reports: Balance problems. Denies: Focal weakness, Numbness, Tingling Psychiatric: Denies: Anxiety, Depression, Homicidal Ideations, Suicidal Ideations Hematologic/ Lymphatic: Reports: Anemia, Easy Bruising, Easy Bleeding VTE Information - Inpt Only VTE Present on Admission: No VTE Mechan Device Prophylaxis: SCD's VTE Pharm Prophylaxis ordered?: Yes Patient Problems: Active and Suspected Problems Acute viral bronchitis (Acute) Subjective: Seated upright in the ED bed, fatigued appearance. Objective: Physical Examination: General: awake, alert, oriented x 3 and cooperative, seated upright in the ED bed in no apparent distress, fatigued appearing. Skin: normal color, turgor, no icterus, cyanosis except occasional abrasion, scab to extremities. HEENT: AT/NC, EOMI, PERRLA, dry MM, no carotid bruits or JVD noted. Lungs: Diminished BS, > BL bases, poor effort, coughing w/ increased effort attempts, no rales, ronchi or wheezing. Heart: Regular rate and rhythm; no gallop, rub audible. Abdomen: soft, obese, NTTP, ND, normal BS, no HSM; however, habitus makes examination difficult. Extremities: no cyanosis, clubbing, or edema, AVF. Neurological: patient awake, alert, oriented x 3; cognitive function intact; pupils equally reactive to light and accomodation; cranial nerves II-XII grossly normal, moving all 4 extremities, no focal deficits, strength severely globally decreased secondary to acute presentation. Psychiatric: affect appears fatigued, flat, no acute evidence of depressive or anxiety feelings. - Physical Exam Vital Signs Temp Pulse Resp BP Pulse Ox 100.3 F H 72 28 H 118/62 93 09/12/18 21:02 09/12/18 21:02 09/12/18 21:02 09/12/18 21:02 09/12/18 21:02 Oxygen Delivery Method Room Air Weight: 195 lb 12.328 oz Body Mass Index (BMI) 34.7 Finger Stick Blood Glucose 116 Laboratory Tests Past 24 Hrs 09/12/18 09/12/18 09/12/18 22:05 22:05 22:05 WBC 7.1 RBC 4.02 L Hgb 12.0 L Hct 37.7 L MCV 93.8 MCH 29.9 MCHC 31.8 L RDW 14.7 H RDW Differential 50.2 H Plt Count 102 L MPV 8.9 Immature Gran % (Auto) 0.100 Neut % (Auto) 72.7 H Lymph % (Auto) 14.0 L [place] % (Auto) 12.8 H Eos % (Auto) 0.3 Baso % (Auto) 0.1 Absolute Neuts (auto) 5.2 Absolute Lymphs (auto) 0.99 Total Counted Not Reportable PT 15.0 H INR 1.2 APTT 32.0 Sodium 133 L Potassium 3.6 Chloride 95 L Carbon Dioxide 27.0 Anion Gap 11 BUN 37 H Creatinine 5.14 H Estim Creat Clear Calc 9.38 Est GFR (MDRD) Af Amer 14 L Est GFR (MDRD) Non-Af 12 L BUN/Creatinine Ratio 7.2 L Glucose 119 H Calcium 10.7 H Total Bilirubin 0.70 AST 19 ALT 24 Alkaline Phosphatase 101 Troponin I < 0.015 Total Protein 7.0 Albumin 2.2 L Globulin 4.8 H Albumin/Globulin Ratio 0.5 L Assessment/Plan All Active Problems Acute viral bronchitis (Acute) Generalized weakness (Acute) Transient expressive aphasia (Resolved) Near syncope (Acute) Hypotension (Acute) The patient is a 78 y/o F w/ PMHx: ESRD on HD, Obesity, HTN, History of DVT, BPH s/p TURP, History of TIA, AOCD/Fe deficiency anemia, GERD, Former Tobacco use who presents to the [facility] ED on 09/12/18 with history of progressively worsening weakness, non-productive cough, dyspnea worse with exertion recently with onset fever. (1) Suspected Acute Viral Bronchitis w/ associated weakness, debility: ED work- up included T 100.3, heart rate 72, BP 118/62, respiratory rate 28, 93% on room air, CBC with WBC 7.1, heme globin 12, platelet 102 without market shift, coags with PT 15, INR 1.2, PTT 32, CMP with sodium 133, chloride 95, BUN/creatinine 37/5.14, glucose 119, calcium 10.7, troponin <0.015, CXR with chronic interstitial changes. UA pending upon admission. Will admit to [place], maintain on oxygen with wean as tolerated to room air, will need oxygenation assessment prior to discharge given current presentation, continue ATC duonebs, PRN albuterol, HOB, IS parameters, obtain respiratory viral panel, obtain sputum Cx, gently hydrate given ESRD status and consider repeat CXR PA and Lateral in AM. PT, OT, CM for discharge planning. (2) Hypertension: Continue home regimen including metoprolol w/ hold parameters, PRN hydralazine. (2) ESRD: HD normally outpatient at the [facility] hemodialysis [place] on MWF, following w/ Dr. Rodgers/Rick who have been consulted, repeat BMP in AM. (3) AOCD/Fe deficiency anemia: Admission Hgb 12, baseline 8-10 range, stable. (4) Orthostasis, Chronic: Following HD notably, will continue home regimen midodrine w/ HD. (5) BPH: s/p TURP, will continue home flomax regimen. (6) History of DVT: Maintain on chemoprophylaxis as noted. (7) GERD: PPI. (8) DVT prophylaxis: SCDs, heparin. (9) CODE status: remains HCPOA and living will is in place. Discussed CODE status including difference between FULL code, DNR-CCA and DNR-CC status. Following discussions about the differences in these status, confirmed DNR-CCA, no intubation status. Advanced Care Planning Face to Face Time: 16 minutes. Code Visit OBSV E&M: 59746 Initial observation care L3 Procedures: 54178 Advncd Care Plan 30 Min
[2018-09-12 23:22] VITALS: PULSE 67; RESP 21; O2SAT 96
[2018-09-12 23:28] LABS: Bacteria 0 SEEN /hpf (None Seen); Mucous, Urine 0 SEEN /hpf (<or=2+); Squamous Epithelial Cells - UA 0 SEEN /hpf (0-5)
[2018-09-12 23:45] LABS: Color, Urine Yellow (Yellow); Glucose, Dipstick 250 mg/dl (Normal); Ketone-Dipstick Negative (Negative); Leukocyte Esterase-Dipstick 100 /ul (Negative); Nitrite-Dipstick Negative (Negative); Occult Blood-Urine 10 /ul (Negative); Protein-Dipstick 100 mg/dl (Negative); Specific Gravity, Urine 1.015 (1.002-1.030); Urine Bilirubin Dipstick Negative (Negative); Urine Clarity Clear (Clear); Urine Urobilinogen Normal (Normal)
[2018-09-13] VITALS (9 sets, daily range): BP systolic 121–159; BP diastolic 57–73; PULSE 66–80; RESP 18–24; TEMP 36.8–38.6; O2SAT 93–98; BMI 35.5
[2018-09-13 00:04] LABS: Red Blood Cells-Urine 0-5 SEEN /hpf (0-5); White Blood Cells 10-25 SEEN /hpf (0-5)
--- NOTE | 2018-09-13 01:27 | NURSING ---
Notified CPS about order for respiratory panel
[2018-09-13 01:51] LABS: Magnesium 1.8 mg/dL (1.6-2.6)
[2018-09-13] MEDS: 0.9% Normal Saline 1,000 ML 75 ML IV ×2 (02:12→14:50)
[2018-09-13] MEDS: 0.9% NaCl Peripheral Flush Adult/Peds IV (02:16)
--- NOTE | 2018-09-13 05:10 | RAD_ITS ---
STUDY: X-RAY CHEST REASON FOR EXAM: Male, 78 years old. Shortness of breath TECHNIQUE: Frontal and lateral views of the chest. COMPARISON: 09/12/2018 FINDINGS: Stent in the left arm. Progressing right midlung and basilar atelectasis. There is no demonstrated pleural abnormality. Normal size heart. Normal mediastinum and marcia. Normal visualized pulmonary arteries. Normal visualized aortic arch and descending thoracic aorta. Normal visualized thoracic spine. Normal visualized ribs, clavicles, and shoulders. There is no demonstrated abnormality of the visualized soft tissue structures of the upper abdomen. RAD/Chest PA and Lateral IMPRESSION: Progressing right midlung and basilar atelectasis. Electronically Signed: Kamran Castro MD at 7:11 EDT Tel , Service support ,
[2018-09-13] MEDS: Nystatin Powder 15gm Bottle 1 APPLIC TOPICAL ×3 (06:09→23:44)
[2018-09-13] MEDS: Acetaminophen 325 MG Tablet 650 MG PO ×2 (06:13→19:38)
[2018-09-13] MEDS: Menthol/Lanolin/Calamine/Znox 113 GM Tube 1 APPLIC TOPICAL ×4 (06:19→16:38)
[2018-09-13 07:12] LABS: Absolute Lymphocyte Count 1.04 X10^3/ul (0.83-4.51); Absolute Neutrophil Count 4.6 X10^3/uL (2.0-7.7); Basophil# 0.01 X10^3/uL; Basophil% 0.1 % (0-1); Eosinophil# 0.04 X10^3/uL; Eosinophils% 0.6 % (0-5); Hematocrit 37.7 % (40-54); Hemoglobin 12.1 g/dl (13.0-16.5); Lymphocyte # 1.04 X10^3/ul (4.0); Lymphocyte % 15.5 % (19-41); Mean Corp Hgb Conc 32.1 g/gl (32-36); Mean Corpuscular Hgb 29.8 pg (27.0-32.0); Mean Corpuscular Volume 92.9 fL (80-94); Mean Platelet Vol. 9.7 fl (6.2-12.0); Monocyte# 1.04 X10^3/uL; Monocyte% 15.5 % (0-10); Neutrophil # 4.58 X10^3/uL (2.7-7.7); Neutrophil % 68.2 % (47-70); Platelet Count 98 K/mm3 (150-450); RBC Distribution Width CV 14.8 % (11.6-14.6); RBC Distribution Width SD 50.4 fl (35.1-43.9); Red Blood Count 4.06 M/mm3 (4.6-6.2); White Blood Count 6.7 K/mm3 (4.4-11.0)
[2018-09-13 07:16] LABS: Anion Gap 9 (5-15); BUN 39 mg/dL (7-18); BUN/Creat Ratio 7.6 RATIO (10-20); Chloride 97 mmol/L (98-107); Creatinine, Serum 5.11 mg/dL (0.70-1.30); EST Glomerular Filtration Rate 12 mL/min (>60); Est Glom Filt Rate - Afr Amer 14 mL/min (>60); Estimated Creatinine Clearance 8.67 ml/min; Glucose 84 mg/dL (74-106); Potassium 3.8 mmol/L (3.5-5.1); Sodium Level 128 mmol/L (136-145)
[2018-09-13 07:31] LABS: POSITIVE COUNT NO; POSITIVE DIFFERENTIAL NO; POSITIVE MORPHOLOGY NO
--- NOTE | 2018-09-13 08:16 | NURSING ---
wound photo: left lateral thigh/hip
[2018-09-13] MEDS: Heparin Injection (Vial) 5,000 UNIT/ML VIAL 5000 UNIT SC (09:43)
[2018-09-13] MEDS: Tamsulosin HCl 0.4 MG Capsule PO ×2 (09:49→23:43)
[2018-09-13] MEDS: SEVELAMER CARBONATE 800 MG TABLET PO ×3 (09:50→16:38)
[2018-09-13] MEDS: Metoprolol Tartrate 50 MG Tablet PO (09:50)
[2018-09-13] MEDS: guaiFENesin 600 MG Tablet PO ×2 (09:50→23:44)
[2018-09-13] MEDS: Midodrine HCl 5 MG Tablet 10 MG PO (09:50)
[2018-09-13] MEDS: Pantoprazole Sodium 40 MG Tablet PO ×2 (09:50→23:43)
[2018-09-13] MEDS: Nepro Liquid 120 ML LIQUID PO (09:52)
[2018-09-13] MEDS: Ferrous Sulfate 325 MG Tablet PO ×2 (09:52→16:37)
--- NOTE | 2018-09-13 10:55 | CASEMGMT ---
RN GIOVANNY Face to Face with patient for initial transition planning/care coordination assessment. RN CM introduced self and role at [facility]. Patient sitting in chair, alert and oriented. Patient willing to participate in assessment and is able to answer all questions appropriately. Care providers, pharmacy, and demographics verified. Patient wishes to discharge home, denies need for home health at this time. Patient states he has no further needs or concerns at this time. CM to follow for discharge planning needs that may arise. PCP: Jack Specialists: None Preferred Pharmacy: [facility] Insurance: [facility] Prescription Benefit: Yes Living Will/HPOA: Yes, Phyllis Mccullough LNOK: Living Arrangements: Patient lives with in a mobile home, patient is mostly independent, assists with bathing and dressing. Transportation: DME/HHC: Patient has cane, walker, and wc. Patient has had [facility] in the past and has been to [facility] previously Disposition Plan: Patient to discharge home with family support and follow-up plans in place. Patient declines HHC. Reba MERCADO, RN, CM
--- NOTE | 2018-09-13 12:07 | PCM.CONS.R ---
Problem List (1) ESRD (end stage renal disease) Status: Chronic Consultation - Renal 09/13/18 PCP/ Referring MD: Requesting physician: [] Primary care physician: Dona Santiago - History of Present Illness History of Present Illness: The patient is a 78 year old M with underlying history of end-stage renal disease on hemodialysis for about 1.5 years. He dialyzes at [facility] in [facility]. His normal dialysis days are Thursday and Thursday. His pattern gater is Dr. Neumann. His last hemodialysis treatment was on Thursday. He presented to the hospital due to generalized arthralgia in conjunction with nonproductive cough and currently being treated for acute bronchitis. Today's encounter he feels better and tolerating p.o. intake. Nephrology was consulted for management of his end-stage renal disease. 10 review of system is negative other than stated above. Vital Signs Height 5 ft 1 in Weight: 85.417 kg Weight in Pounds 188.3 lbs Pulse Ox 94 Temperature 98.6 F Pulse Rate 69 Respiratory Rate 22 Blood Pressure 121/60 Blood Pressure Position Semi-Fowlers Physical examination Elderly gentleman who is alert and responsive sitting in chair in no acute distress Normocephalic atraumatic extraocular muscles intact Oral mucosa slightly dry Neck is supple S1-S2 regular Breath sounds are equal and clear anteriorly Abdomen is soft and nontender No peripheral edema Left upper extremity AV fistula with good thrill and bruit Has no focal deficit Normal mood and affect Laboratory Results - last 24 hr 09/12/18 09/12/18 09/12/18 22:05 22:05 22:05 WBC 7.1 RBC 4.02 L Hgb 12.0 L Hct 37.7 L MCV 93.8 MCH 29.9 MCHC 31.8 L RDW 14.7 H RDW Differential 50.2 H Plt Count 102 L MPV 8.9 Immature Gran % (Auto) 0.100 Neut % (Auto) 72.7 H Lymph % (Auto) 14.0 L Monroe % (Auto) 12.8 H Eos % (Auto) 0.3 Baso % (Auto) 0.1 Absolute Neuts (auto) 5.2 Absolute Lymphs (auto) 0.99 Total Counted Not Reportable PT 15.0 H INR 1.2 APTT 32.0 Sodium 133 L Potassium 3.6 Chloride 95 L Carbon Dioxide 27.0 Anion Gap 11 BUN 37 H Creatinine 5.14 H Estim Creat Clear Calc 9.38 Est GFR (MDRD) Af Amer 14 L Est GFR (MDRD) Non-Af 12 L BUN/Creatinine Ratio 7.2 L Glucose 119 H Calcium 10.7 H Magnesium Total Bilirubin 0.70 AST 19 ALT 24 Alkaline Phosphatase 101 Troponin I < 0.015 Total Protein 7.0 Albumin 2.2 L Globulin 4.8 H Albumin/Globulin Ratio 0.5 L Urine Color Urine Clarity Urine pH Ur Specific Hobson Urine Protein Urine Glucose (UA) Urine Ketones Urine Occult Blood Urine Nitrite Urine Bilirubin Urine Urobilinogen Ur Leukocyte Esterase Urine RBC Urine WBC Ur Squamous Epith Cells Urine Bacteria Urine Mucus 09/12/18 09/12/18 09/13/18 22:05 23:24 06:48 WBC 6.7 RBC 4.06 L Hgb 12.1 L Hct 37.7 L MCV 92.9 MCH 29.8 MCHC 32.1 RDW 14.8 H RDW Differential 50.4 H Plt Count 98 L MPV 9.7 Immature Gran % (Auto) 0.100 Neut % (Auto) 68.2 Lymph % (Auto) 15.5 L Monroe % (Auto) 15.5 H Eos % (Auto) 0.6 Baso % (Auto) 0.1 Absolute Neuts (auto) 4.6 Absolute Lymphs (auto) 1.04 Total Counted Not Reportable PT INR APTT Sodium Potassium Chloride Carbon Dioxide Anion Gap BUN Creatinine Estim Creat Clear Calc Est GFR (MDRD) Af Amer Est GFR (MDRD) Non-Af BUN/Creatinine Ratio Glucose Calcium Magnesium 1.8 Total Bilirubin AST ALT Alkaline Phosphatase Troponin I Total Protein Albumin Globulin Albumin/Globulin Ratio Urine Color Yellow Urine Clarity Clear Urine pH 8.0 Ur Specific Hobson 1.015 Urine Protein 100 H Urine Glucose (UA) 250 H Urine Ketones Negative Urine Occult Blood 10 H Urine Nitrite Negative Urine Bilirubin Negative Urine Urobilinogen Normal Ur Leukocyte Esterase 100 H Urine RBC 0-5 SEEN Urine WBC 10-25 SEEN Ur Squamous Epith Cells 0 SEEN Urine Bacteria 0 SEEN Urine Mucus 0 SEEN 09/13/18 06:48 WBC RBC Hgb Hct MCV MCH MCHC RDW RDW Differential Plt Count MPV Immature Gran % (Auto) Neut % (Auto) Lymph % (Auto) Monroe % (Auto) Eos % (Auto) Baso % (Auto) Absolute Neuts (auto) Absolute Lymphs (auto) Total Counted PT INR APTT Sodium 128 L Potassium 3.8 Chloride 97 L Carbon Dioxide 22.0 Anion Gap 9 BUN 39 H Creatinine 5.11 H Estim Creat Clear Calc 8.67 Est GFR (MDRD) Af Amer 14 L Est GFR (MDRD) Non-Af 12 L BUN/Creatinine Ratio 7.6 L Glucose 84 Calcium 10.0 Magnesium Total Bilirubin AST ALT Alkaline Phosphatase Troponin I Total Protein Albumin Globulin Albumin/Globulin Ratio Urine Color Urine Clarity Urine pH Ur Specific Hobson Urine Protein Urine Glucose (UA) Urine Ketones Urine Occult Blood Urine Nitrite Urine Bilirubin Urine Urobilinogen Ur Leukocyte Esterase Urine RBC Urine WBC Ur Squamous Epith Cells Urine Bacteria Urine Mucus - Allergies Allergies: Allergies Sulfa (Sulfonamide Antibiotics) Allergy (Severe, Verified 09/12/18 21:01) Hives - Current Medications Current Medications: Current Medications Acetaminophen (Tylenol) 650 mg PO Q6H PRN PRN PRN Reason: Mild Pain (scale 0-3)/T>100.7 Last Admin: 09/13/18 06:13 Dose: 650 mg Al Hydroxide/Mg Hydroxide (Mylanta Ii) 30 ml PO Q6H PRN PRN PRN Reason: Gastric burning Albuterol Sulfate (Ventolin Aerosols) 2.5 mg INHALATION Q2H PRN PRN PRN Reason: SHORTNESS OF BREATH Albuterol/Ipratropium (Duoneb) 3 ml INHALATION Q4H.RT [facility] Calamine/Phenol (Calmoseptine Ointment) 1 applic TOPICAL 4X/DAY [facility]; Protocol Last Admin: 09/13/18 09:39 Dose: 1 applicatio Ferrous S[facility] ([facility]ous Sulfate) [facility] Last Admin: 09/13/18 09:52 Dose: 325 mg Guaifenesin (Mucinex) 600 mg PO BID [facility] Last Admin: 09/13/18 09:50 Dose: 600 mg Heparin Sodium (Porcine) (Heparin Na) 5,000 unit SC Q12 [facility] Last Admin: 09/13/18 09:43 Dose: 5,000 unit Sodium Chloride () 1,000 mls @ 75 mls/hr IV .[id number] [facility] Last Admin: 09/13/18 02:12 Dose: 75 mls/hr Magnesium Hydroxide (Milk Of Magnesia) 30 ml PO DAILY PRN PRN PRN Reason: Constipation Metoprolol Tartrate (Lopressor (Beta Minoo)) 50 mg PO BID [facility] Last Admin: 09/13/18 09:50 Dose: 50 mg Midodrine (Proamatine) 10 mg PO MoWeFr@1000 [facility] Last Admin: 09/13/18 09:50 Dose: 10 mg Nutritional Formula (Nepro Carb Steady) 120 ml PO BID [facility] Last Admin: 09/13/18 09:52 Dose: 120 ml Nystatin (Mycostatin Powder) 1 applic TOPICAL TID [facility]; Protocol Last Admin: 09/13/18 06:09 Dose: 1 applicatio Ondansetron HCl (Zofran) 4 mg IV Q8H PRN PRN PRN Reason: NAUSEA Oxycodone HCl (Oxyir) 5 mg PO Q8H PRN PRN PRN Reason: PAIN Pantoprazole Sodium (Protonix) 40 mg PO BID [facility] Last Admin: 09/13/18 09:50 Dose: 40 mg Promethazine HCl (Phenergan) 12.5 mg IV Q6H PRN PRN PRN Reason: NAUSEA/VOMITING Senna/Docusate Sodium (Senokot-S, Inocencia-Colace) 1 tablet PO PRN PRN PRN Reason: Constipation Sevelamer Carbonate (Renvela) 800 mg PO TIDCM [facility] Last Admin: 09/13/18 11:59 Dose: 800 mg Sodium Chloride () 5 - 30 ml IV UD PRN PRN Reason: SALINE FLUSH Last Admin: 09/13/18 02:16 Dose: 10 ml Tamsulosin HCl (Flomax) 0.4 mg PO BID [facility] Last Admin: 09/13/18 09:49 Dose: 0.4 mg - 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 - Social History Smoking Status: Former smoker Alcohol: None Drugs: None - Family History Maternal History Items: - - Patient denies any marked maternal or paternal family history including HD, DM, CA. Paternal History Items: - - Patient denies any marked maternal or paternal family history including HD, DM, CA. Patient Problems: Active and Suspected Problems Acute viral bronchitis (Acute) Generalized weakness (Acute) - Physical Exam Vital Signs Temp Pulse Resp BP Pulse Ox 98.6 F 69 22 H 121/60 H 94 09/13/18 07:56 09/13/18 09:50 09/13/18 07:56 09/13/18 07:56 09/13/18 07:56 Oxygen Flow Rate (L/min) 2 Oxygen Delivery Method Room Air Weight: 85.417 kg Body Mass Index (BMI) 35.5 Finger Stick Blood Glucose 116 Intake and Output for Last 24 Hours 09/11/18 09/12/18 09/13/18 23:59 23:59 23:59 Intake Total 1584 / 1584 Balance 1584 / 1584 Laboratory Tests Past 24 Hrs 09/12/18 09/12/18 09/12/18 22:05 22:05 22:05 WBC 7.1 RBC 4.02 L Hgb 12.0 L Hct 37.7 L MCV 93.8 MCH 29.9 MCHC 31.8 L RDW 14.7 H RDW Differential 50.2 H Plt Count 102 L MPV 8.9 Immature Gran % (Auto) 0.100 Neut % (Auto) 72.7 H Lymph % (Auto) 14.0 L Monroe % (Auto) 12.8 H Eos % (Auto) 0.3 Baso % (Auto) 0.1 Absolute Neuts (auto) 5.2 Absolute Lymphs (auto) 0.99 Total Counted Not Reportable PT 15.0 H INR 1.2 APTT 32.0 Sodium 133 L Potassium 3.6 Chloride 95 L Carbon Dioxide 27.0 Anion Gap 11 BUN 37 H Creatinine 5.14 H Estim Creat Clear Calc 9.38 Est GFR (MDRD) Af Amer 14 L Est GFR (MDRD) Non-Af 12 L BUN/Creatinine Ratio 7.2 L Glucose 119 H Calcium 10.7 H Magnesium Total Bilirubin 0.70 AST 19 ALT 24 Alkaline Phosphatase 101 Troponin I < 0.015 Total Protein 7.0 Albumin 2.2 L Globulin 4.8 H Albumin/Globulin Ratio 0.5 L Urine Color Urine Clarity Urine pH Ur Specific Hobson Urine Protein Urine Glucose (UA) Urine Ketones Urine Occult Blood Urine Nitrite Urine Bilirubin Urine Urobilinogen Ur Leukocyte Esterase Urine RBC Urine WBC Ur Squamous Epith Cells Urine Bacteria Urine Mucus 09/12/18 09/12/18 09/13/18 22:05 23:24 06:48 WBC 6.7 RBC 4.06 L Hgb 12.1 L Hct 37.7 L MCV 92.9 MCH 29.8 MCHC 32.1 RDW 14.8 H RDW Differential 50.4 H Plt Count 98 L MPV 9.7 Immature Gran % (Auto) 0.100 Neut % (Auto) 68.2 Lymph % (Auto) 15.5 L Monroe % (Auto) 15.5 H Eos % (Auto) 0.6 Baso % (Auto) 0.1 Absolute Neuts (auto) 4.6 Absolute Lymphs (auto) 1.04 Total Counted Not Reportable PT INR APTT Sodium Potassium Chloride Carbon Dioxide Anion Gap BUN Creatinine Estim Creat Clear Calc Est GFR (MDRD) Af Amer Est GFR (MDRD) Non-Af BUN/Creatinine Ratio Glucose Calcium Magnesium 1.8 Total Bilirubin AST ALT Alkaline Phosphatase Troponin I Total Protein Albumin Globulin Albumin/Globulin Ratio Urine Color Yellow Urine Clarity Clear Urine pH 8.0 Ur Specific Hobson 1.015 Urine Protein 100 H Urine Glucose (UA) 250 H Urine Ketones Negative Urine Occult Blood 10 H Urine Nitrite Negative Urine Bilirubin Negative Urine Urobilinogen Normal Ur Leukocyte Esterase 100 H Urine RBC 0-5 SEEN Urine WBC 10-25 SEEN Ur Squamous Epith Cells 0 SEEN Urine Bacteria 0 SEEN Urine Mucus 0 SEEN 09/13/18 06:48 WBC RBC Hgb Hct MCV MCH MCHC RDW RDW Differential Plt Count MPV Immature Gran % (Auto) Neut % (Auto) Lymph % (Auto) Monroe % (Auto) Eos % (Auto) Baso % (Auto) Absolute Neuts (auto) Absolute Lymphs (auto) Total Counted PT INR APTT Sodium 128 L Potassium 3.8 Chloride 97 L Carbon Dioxide 22.0 Anion Gap 9 BUN 39 H Creatinine 5.11 H Estim Creat Clear Calc 8.67 Est GFR (MDRD) Af Amer 14 L Est GFR (MDRD) Non-Af 12 L BUN/Creatinine Ratio 7.6 L Glucose 84 Calcium 10.0 Magnesium Total Bilirubin AST ALT Alkaline Phosphatase Troponin I Total Protein Albumin Globulin Albumin/Globulin Ratio Urine Color Urine Clarity Urine pH Ur Specific Hobson Urine Protein Urine Glucose (UA) Urine Ketones Urine Occult Blood Urine Nitrite Urine Bilirubin Urine Urobilinogen Ur Leukocyte Esterase Urine RBC Urine WBC Ur Squamous Epith Cells Urine Bacteria Urine Mucus Assessment/Plan All Active Problems Acute viral bronchitis (Acute) Generalized weakness (Acute) Generalized weakness (Acute) Transient expressive aphasia (Resolved) Near syncope (Acute) Hypotension (Acute) Assessment and plan 1. End Stage renal disease on hemodialysis Thursday -We will plan for hemodialysis treatment today 2. Mild hyponatremia -Should be corrected with renal replacement therapy today 3. Anemia of chronic disease -Hemoglobin is at goal 4. Hypertension -Pressure stable 5. Acute bronchitis -Per primary team Thank you for allowing me to take part in the care of Mr. Mccullough. Please do not hesitate to call me at [phone] with any concerns.
--- NOTE | 2018-09-13 12:12 | CON.PCM_ITS ---
Problem List (1) ESRD (end stage renal disease) Status: Chronic Consultation - Renal 09/13/18 PCP/ Referring MD: Requesting physician: [] Primary care physician: Dona Sanitago - History of Present Illness History of Present Illness: The patient is a 78 year old M with underlying history of end-stage renal disease on hemodialysis for about 1.5 years. He dialyzes at [facility] [place] [place] in [facility]. His normal dialysis days are Thursday and Thursday. His beauty director is Dr. Neumann. His last hemodialysis treatment was on Thursday. He presented to the hospital due to generalized arthralgia in conjunction with nonproductive cough and currently being treated for acute bronchitis. Today's encounter he feels better and tolerating p.o. intake. Nephrology was consulted for management of his end-stage renal disease. 10 review of system is negative other than stated above. Vital Signs Height 5 ft 1 in Weight: 85.417 kg Weight in Pounds 188.3 lbs Pulse Ox 94 Temperature 98.6 F Pulse Rate 69 Respiratory Rate 22 Blood Pressure 121/60 Blood Pressure Position Semi-Fowlers Physical examination Elderly gentleman who is alert and responsive sitting in chair in no acute distress Normocephalic atraumatic extraocular muscles intact Oral mucosa slightly dry Neck is supple S1-S2 regular Breath sounds are equal and clear anteriorly Abdomen is soft and nontender No peripheral edema Left upper extremity AV fistula with good thrill and bruit Has no focal deficit Normal mood and affect Laboratory Results - last 24 hr 09/12/18 09/12/18 09/12/18 22:05 22:05 22:05 WBC 7.1 RBC 4.02 L Hgb 12.0 L Hct 37.7 L MCV 93.8 MCH 29.9 MCHC 31.8 L RDW 14.7 H RDW Differential 50.2 H Plt Count 102 L MPV 8.9 Immature Gran % (Auto) 0.100 Neut % (Auto) 72.7 H Lymph % (Auto) 14.0 L [place] % (Auto) 12.8 H Eos % (Auto) 0.3 Baso % (Auto) 0.1 Absolute Neuts (auto) 5.2 Absolute Lymphs (auto) 0.99 Total Counted Not Reportable PT 15.0 H INR 1.2 APTT 32.0 Sodium 133 L Potassium 3.6 Chloride 95 L Carbon Dioxide 27.0 Anion Gap 11 BUN 37 H Creatinine 5.14 H Estim Creat Clear Calc 9.38 Est GFR (MDRD) Af Amer 14 L Est GFR (MDRD) Non-Af 12 L BUN/Creatinine Ratio 7.2 L Glucose 119 H Calcium 10.7 H Magnesium Total Bilirubin 0.70 AST 19 ALT 24 Alkaline Phosphatase 101 Troponin I < 0.015 Total Protein 7.0 Albumin 2.2 L Globulin 4.8 H Albumin/Globulin Ratio 0.5 L Urine Color Urine Clarity Urine pH Ur Specific [place] Urine Protein Urine Glucose (UA) Urine Ketones Urine Occult Blood Urine Nitrite Urine Bilirubin Urine Urobilinogen Ur Leukocyte Esterase Urine RBC Urine WBC Ur Squamous Epith Cells Urine Bacteria Urine Mucus 09/12/18 09/12/18 09/13/18 22:05 23:24 06:48 WBC 6.7 RBC 4.06 L Hgb 12.1 L Hct 37.7 L MCV 92.9 MCH 29.8 MCHC 32.1 RDW 14.8 H RDW Differential 50.4 H Plt Count 98 L MPV 9.7 Immature Gran % (Auto) 0.100 Neut % (Auto) 68.2 Lymph % (Auto) 15.5 L [place] % (Auto) 15.5 H Eos % (Auto) 0.6 Baso % (Auto) 0.1 Absolute Neuts (auto) 4.6 Absolute Lymphs (auto) 1.04 Total Counted Not Reportable PT INR APTT Sodium Potassium Chloride Carbon Dioxide Anion Gap BUN Creatinine Estim Creat Clear Calc Est GFR (MDRD) Af Amer Est GFR (MDRD) Non-Af BUN/Creatinine Ratio Glucose Calcium Magnesium 1.8 Total Bilirubin AST ALT Alkaline Phosphatase Troponin I Total Protein Albumin Globulin Albumin/Globulin Ratio Urine Color Yellow Urine Clarity Clear Urine pH 8.0 Ur Specific [place] 1.015 Urine Protein 100 H Urine Glucose (UA) 250 H Urine Ketones Negative Urine Occult Blood 10 H Urine Nitrite Negative Urine Bilirubin Negative Urine Urobilinogen Normal Ur Leukocyte Esterase 100 H Urine RBC 0-5 SEEN Urine WBC 10-25 SEEN Ur Squamous Epith Cells 0 SEEN Urine Bacteria 0 SEEN Urine Mucus 0 SEEN 09/13/18 06:48 WBC RBC Hgb Hct MCV MCH MCHC RDW RDW Differential Plt Count MPV Immature Gran % (Auto) Neut % (Auto) Lymph % (Auto) [place] % (Auto) Eos % (Auto) Baso % (Auto) Absolute Neuts (auto) Absolute Lymphs (auto) Total Counted PT INR APTT Sodium 128 L Potassium 3.8 Chloride 97 L Carbon Dioxide 22.0 Anion Gap 9 BUN 39 H Creatinine 5.11 H Estim Creat Clear Calc 8.67 Est GFR (MDRD) Af Amer 14 L Est GFR (MDRD) Non-Af 12 L BUN/Creatinine Ratio 7.6 L Glucose 84 Calcium 10.0 Magnesium Total Bilirubin AST ALT Alkaline Phosphatase Troponin I Total Protein Albumin Globulin Albumin/Globulin Ratio Urine Color Urine Clarity Urine pH Ur Specific [place] Urine Protein Urine Glucose (UA) Urine Ketones Urine Occult Blood Urine Nitrite Urine Bilirubin Urine Urobilinogen Ur Leukocyte Esterase Urine RBC Urine WBC Ur Squamous Epith Cells Urine Bacteria Urine Mucus - Allergies Allergies: Allergies Sulfa (Sulfonamide Antibiotics) Allergy (Severe, Verified 09/12/18 21:01) Hives - Current Medications Current Medications: Current Medications Acetaminophen (Tylenol) 650 mg PO Q6H PRN PRN PRN Reason: Mild Pain (scale 0-3)/T>100.7 Last Admin: 09/13/18 06:13 Dose: 650 mg Al Hydroxide/Mg Hydroxide (Mylanta Ii) 30 ml PO Q6H PRN PRN PRN Reason: Gastric burning Albuterol Sulfate (Ventolin Aerosols) 2.5 mg INHALATION Q2H PRN PRN PRN Reason: SHORTNESS OF BREATH Albuterol/Ipratropium (Duoneb) 3 ml INHALATION Q4H.RT [facility] Calamine/Phenol (Calmoseptine Ointment) 1 applic TOPICAL 4X/DAY [facility]; Protocol Last Admin: 09/13/18 09:39 Dose: 1 applicatio [facility] Last Admin: 09/13/18 09:52 Dose: 325 mg Guaifenesin (Mucinex) 600 mg PO BID [facility] Last Admin: 09/13/18 09:50 Dose: 600 mg Heparin Sodium (Porcine) (Heparin Na) 5,000 unit SC Q12 [facility] Last Admin: 09/13/18 09:43 Dose: 5,000 unit Sodium Chloride () 1,000 mls @ 75 mls/hr IV .[id number] [facility] Last Admin: 09/13/18 02:12 Dose: 75 mls/hr Magnesium Hydroxide (Milk Of Magnesia) 30 ml PO DAILY PRN PRN PRN Reason: Constipation Metoprolol Tartrate (Lopressor (Beta Minoo)) 50 mg PO BID [facility] Last Admin: 09/13/18 09:50 Dose: 50 mg Midodrine (Proamatine) 10 mg PO MoWeFr@1000 [facility] Last Admin: 09/13/18 09:50 Dose: 10 mg Nutritional Formula (Nepro Carb Steady) 120 ml PO BID [facility] Last Admin: 09/13/18 09:52 Dose: 120 ml Nystatin (Mycostatin Powder) 1 applic TOPICAL TID [facility]; Protocol Last Admin: 09/13/18 06:09 Dose: 1 applicatio Ondansetron HCl (Zofran) 4 mg IV Q8H PRN PRN PRN Reason: NAUSEA Oxycodone HCl (Oxyir) 5 mg PO Q8H PRN PRN PRN Reason: PAIN Pantoprazole Sodium (Protonix) 40 mg PO BID [facility] Last Admin: 09/13/18 09:50 Dose: 40 mg Promethazine HCl (Phenergan) 12.5 mg IV Q6H PRN PRN PRN Reason: NAUSEA/VOMITING Senna/Docusate Sodium (Senokot-S, Inocencia-Colace) 1 tablet PO PRN PRN PRN Reason: Constipation Sevelamer Carbonate (Renvela) 800 mg PO TIDCM [facility] Last Admin: 09/13/18 11:59 Dose: 800 mg Sodium Chloride () 5 - 30 ml IV UD PRN PRN Reason: SALINE FLUSH Last Admin: 09/13/18 02:16 Dose: 10 ml Tamsulosin HCl (Flomax) 0.4 mg PO BID [facility] Last Admin: 09/13/18 09:49 Dose: 0.4 mg - 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 - Social History Smoking Status: Former smoker Alcohol: None Drugs: None - Family History Maternal History Items: - - Patient denies any marked maternal or paternal family history including HD, DM, CA. Paternal History Items: - - Patient denies any marked maternal or paternal family history including HD, DM, CA. Patient Problems: Active and Suspected Problems Acute viral bronchitis (Acute) Generalized weakness (Acute) - Physical Exam Vital Signs Temp Pulse Resp BP Pulse Ox 98.6 F 69 22 H 121/60 H 94 09/13/18 07:56 09/13/18 09:50 09/13/18 07:56 09/13/18 07:56 09/13/18 07:56 Oxygen Flow Rate (L/min) 2 Oxygen Delivery Method Room Air Weight: 85.417 kg Body Mass Index (BMI) 35.5 Finger Stick Blood Glucose 116 Intake and Output for Last 24 Hours 09/11/18 09/12/18 09/13/18 23:59 23:59 23:59 Intake Total 1584 / 1584 Balance 1584 / 1584 Laboratory Tests Past 24 Hrs 09/12/18 09/12/18 09/12/18 22:05 22:05 22:05 WBC 7.1 RBC 4.02 L Hgb 12.0 L Hct 37.7 L MCV 93.8 MCH 29.9 MCHC 31.8 L RDW 14.7 H RDW Differential 50.2 H Plt Count 102 L MPV 8.9 Immature Gran % (Auto) 0.100 Neut % (Auto) 72.7 H Lymph % (Auto) 14.0 L [place] % (Auto) 12.8 H Eos % (Auto) 0.3 Baso % (Auto) 0.1 Absolute Neuts (auto) 5.2 Absolute Lymphs (auto) 0.99 Total Counted Not Reportable PT 15.0 H INR 1.2 APTT 32.0 Sodium 133 L Potassium 3.6 Chloride 95 L Carbon Dioxide 27.0 Anion Gap 11 BUN 37 H Creatinine 5.14 H Estim Creat Clear Calc 9.38 Est GFR (MDRD) Af Amer 14 L Est GFR (MDRD) Non-Af 12 L BUN/Creatinine Ratio 7.2 L Glucose 119 H Calcium 10.7 H Magnesium Total Bilirubin 0.70 AST 19 ALT 24 Alkaline Phosphatase 101 Troponin I < 0.015 Total Protein 7.0 Albumin 2.2 L Globulin 4.8 H Albumin/Globulin Ratio 0.5 L Urine Color Urine Clarity Urine pH Ur Specific [place] Urine Protein Urine Glucose (UA) Urine Ketones Urine Occult Blood Urine Nitrite Urine Bilirubin Urine Urobilinogen Ur Leukocyte Esterase Urine RBC Urine WBC Ur Squamous Epith Cells Urine Bacteria Urine Mucus 09/12/18 09/12/18 09/13/18 22:05 23:24 06:48 WBC 6.7 RBC 4.06 L Hgb 12.1 L Hct 37.7 L MCV 92.9 MCH 29.8 MCHC 32.1 RDW 14.8 H RDW Differential 50.4 H Plt Count 98 L MPV 9.7 Immature Gran % (Auto) 0.100 Neut % (Auto) 68.2 Lymph % (Auto) 15.5 L [place] % (Auto) 15.5 H Eos % (Auto) 0.6 Baso % (Auto) 0.1 Absolute Neuts (auto) 4.6 Absolute Lymphs (auto) 1.04 Total Counted Not Reportable PT INR APTT Sodium Potassium Chloride Carbon Dioxide Anion Gap BUN Creatinine Estim Creat Clear Calc Est GFR (MDRD) Af Amer Est GFR (MDRD) Non-Af BUN/Creatinine Ratio Glucose Calcium Magnesium 1.8 Total Bilirubin AST ALT Alkaline Phosphatase Troponin I Total Protein Albumin Globulin Albumin/Globulin Ratio Urine Color Yellow Urine Clarity Clear Urine pH 8.0 Ur Specific [place] 1.015 Urine Protein 100 H Urine Glucose (UA) 250 H Urine Ketones Negative Urine Occult Blood 10 H Urine Nitrite Negative Urine Bilirubin Negative Urine Urobilinogen Normal Ur Leukocyte Esterase 100 H Urine RBC 0-5 SEEN Urine WBC 10-25 SEEN Ur Squamous Epith Cells 0 SEEN Urine Bacteria 0 SEEN Urine Mucus 0 SEEN 09/13/18 06:48 WBC RBC Hgb Hct MCV MCH MCHC RDW RDW Differential Plt Count MPV Immature Gran % (Auto) Neut % (Auto) Lymph % (Auto) [place] % (Auto) Eos % (Auto) Baso % (Auto) Absolute Neuts (auto) Absolute Lymphs (auto) Total Counted PT INR APTT Sodium 128 L Potassium 3.8 Chloride 97 L Carbon Dioxide 22.0 Anion Gap 9 BUN 39 H Creatinine 5.11 H Estim Creat Clear Calc 8.67 Est GFR (MDRD) Af Amer 14 L Est GFR (MDRD) Non-Af 12 L BUN/Creatinine Ratio 7.6 L Glucose 84 Calcium 10.0 Magnesium Total Bilirubin AST ALT Alkaline Phosphatase Troponin I Total Protein Albumin Globulin Albumin/Globulin Ratio Urine Color Urine Clarity Urine pH Ur Specific [place] Urine Protein Urine Glucose (UA) Urine Ketones Urine Occult Blood Urine Nitrite Urine Bilirubin Urine Urobilinogen Ur Leukocyte Esterase Urine RBC Urine WBC Ur Squamous Epith Cells Urine Bacteria Urine Mucus Assessment/Plan All Active Problems Acute viral bronchitis (Acute) Generalized weakness (Acute) Generalized weakness (Acute) Transient expressive aphasia (Resolved) Near syncope (Acute) Hypotension (Acute) Assessment and plan 1. End Stage renal disease on hemodialysis Thursday -We will plan for hemodialysis treatment today 2. Mild hyponatremia -Should be corrected with renal replacement therapy today 3. Anemia of chronic disease -Hemoglobin is at goal 4. Hypertension -Pressure stable 5. Acute bronchitis -Per primary team Thank you for allowing me to take part in the care of Mr. Mccullough. Please do not hesitate to call me at [phone] with any concerns.
--- NOTE | 2018-09-13 15:59 | PCM.PN.HOSP ---
Patient Problems: Active and Suspected Problems Acute viral bronchitis (Acute) Generalized weakness (Acute) Subjective: Denies any complaints. Had HD today. Vitals/I&O's: Vital Signs Temp Pulse Resp BP Pulse Ox 37.3 C 69 18 159/57 H 96 09/13/18 14:50 09/13/18 14:50 09/13/18 14:50 09/13/18 14:50 09/13/18 14:50 Oxygen Flow Rate (L/min) 2 Oxygen Delivery Method Room Air Weight: 85.417 kg Body Mass Index (BMI) 35.5 Finger Stick Blood Glucose 116 Intake and Output for Last 24 Hours 09/11/18 09/12/18 09/13/18 23:59 23:59 23:59 Intake Total 1584 / 1584 Balance 1584 / 1584 General: Alert, No apparent distress HEENT: Atraumatic, Normocephalic Oral: Moist Mucosa, No Gingival or Mucosal Lesions/ Ulcerations Neck: No Nodes, Thyroid Normal Size and Texture Lungs: Clear to auscultation, Normal air movement, No rhonchi, No wheeze Cardiovascular: Regular rate, Regular Rhythm, Normal S1, Normal S2, No murmurs Abdomen: Bowel Sounds Present, Soft, Non Tender, Non-Distended, No Hepato-splenomegaly Extremities: No edema, No Calf Tenderness Skin: No rashes, No breakdown Musculoskeletal: No Tenderness to Palpation of Joints or Extremities, No Muscle Wasting Psych/Mental Status: Normal Affect, Appropriate Microbiology Past 72 Hours 09/13/18 02:13 Interface Orders Respiratory Panel (PCR) - Final Laboratory Results 09/12/18 22:05: WBC 7.1, RBC 4.02 L, Hgb 12.0 L, Hct 37.7 L, MCV 93.8, MCH 29.9, MCHC 31.8 L, RDW 14.7 H, RDW Differential 50.2 H, Plt Count 102 L, MPV 8.9, Immature Gran % (Auto) 0.100, Neut % (Auto) 72.7 H, Lymph % (Auto) 14.0 L, [place] % (Auto) 12.8 H, Eos % (Auto) 0.3, Baso % (Auto) 0.1, Absolute Neuts (auto) 5.2, Absolute Lymphs (auto) 0.99, Total Counted Not Reportable 09/12/18 22:05: PT 15.0 H, INR 1.2, APTT 32.0 09/12/18 22:05: Sodium 133 L, Potassium 3.6, Chloride 95 L, Carbon Dioxide 27.0, Anion Gap 11, BUN 37 H, Creatinine 5.14 H, Estim Creat Clear Calc 9.38, Est GFR (MDRD) Af Amer 14 L, Est GFR (MDRD) Non-Af 12 L, BUN/Creatinine Ratio 7.2 L, Glucose 119 H, Calcium 10.7 H, Total Bilirubin 0.70, AST 19, ALT 24, Alkaline Phosphatase 101, Troponin I < 0.015, Total Protein 7.0, Albumin 2.2 L, Globulin 4.8 H, Albumin/Globulin Ratio 0.5 L 09/12/18 22:05: Magnesium 1.8 09/12/18 23:24: Urine Color Yellow, Urine Clarity Clear, Urine pH 8.0, Ur Specific [place] 1.015, Urine Protein 100 H, Urine Glucose (UA) 250 H, Urine Ketones Negative, Urine Occult Blood 10 H, Urine Nitrite Negative, Urine Bilirubin Negative, Urine Urobilinogen Normal, Ur Leukocyte Esterase 100 H, Urine RBC 0-5 SEEN, Urine WBC 10-25 SEEN, Ur Squamous Epith Cells 0 SEEN, Urine Bacteria 0 SEEN, Urine Mucus 0 SEEN 09/13/18 06:48: WBC 6.7, RBC 4.06 L, Hgb 12.1 L, Hct 37.7 L, MCV 92.9, MCH 29.8, MCHC 32.1, RDW 14.8 H, RDW Differential 50.4 H, Plt Count 98 L, MPV 9.7, Immature Gran % (Auto) 0.100, Neut % (Auto) 68.2, Lymph % (Auto) 15.5 L, [place] % (Auto) 15.5 H, Eos % (Auto) 0.6, Baso % (Auto) 0.1, Absolute Neuts (auto) 4.6, Absolute Lymphs (auto) 1.04, Total Counted Not Reportable 09/13/18 06:48: Sodium 128 L, Potassium 3.8, Chloride 97 L, Carbon Dioxide 22.0, Anion Gap 9, BUN 39 H, Creatinine 5.11 H, Estim Creat Clear Calc 8.67, Est GFR (MDRD) Af Amer 14 L, Est GFR (MDRD) Non-Af 12 L, BUN/Creatinine Ratio 7.6 L, Glucose 84, Calcium 10.0 Current Medications Acetaminophen (Tylenol) 650 mg PO Q6H PRN PRN PRN Reason: Mild Pain (scale 0-3)/T>100.7 Last Admin: 09/13/18 06:13 Dose: 650 mg Al Hydroxide/Mg Hydroxide (Mylanta Ii) 30 ml PO Q6H PRN PRN PRN Reason: Gastric burning Albuterol Sulfate (Ventolin Aerosols) 2.5 mg INHALATION Q2H PRN PRN PRN Reason: SHORTNESS OF BREATH Albuterol/Ipratropium (Duoneb) 3 ml INHALATION Q4H.RT [facility] Last Admin: 09/13/18 14:27 Dose: Not Given Calamine/Phenol (Calmoseptine Ointment) 1 applic TOPICAL 4X/DAY [facility]; Protocol Last Admin: 09/13/18 14:48 Dose: 1 applicatio Ferrous Sulfate (Ferrous Sulfate) 325 mg PO BIDCM [facility] Last Admin: 09/13/18 09:52 Dose: 325 mg Guaifenesin (Mucinex) 600 mg PO BID [facility] Last Admin: 09/13/18 09:50 Dose: 600 mg Heparin Sodium (Porcine) (Heparin Na) 5,000 unit SC Q12 [facility] Last Admin: 09/13/18 09:43 Dose: 5,000 unit Sodium Chloride () 1,000 mls @ 75 mls/hr IV .[id number] [facility] Last Admin: 09/13/18 14:50 Dose: 75 mls/hr Magnesium Hydroxide (Milk Of Magnesia) 30 ml PO DAILY PRN PRN PRN Reason: Constipation Metoprolol Tartrate (Lopressor (Beta Minoo)) 50 mg PO BID [facility] Last Admin: 09/13/18 09:50 Dose: 50 mg Midodrine (Proamatine) 10 mg PO MoWeFr@1000 [facility] Last Admin: 09/13/18 09:50 Dose: 10 mg Nutritional Formula (Nepro Carb Steady) 120 ml PO BID [facility] Last Admin: 09/13/18 09:52 Dose: 120 ml Nystatin (Mycostatin Powder) 1 applic TOPICAL TID [facility]; Protocol Last Admin: 09/13/18 14:49 Dose: 1 applicatio Ondansetron HCl (Zofran) 4 mg IV Q8H PRN PRN PRN Reason: NAUSEA Oxycodone HCl (Oxyir) 5 mg PO Q8H PRN PRN PRN Reason: PAIN Pantoprazole Sodium (Protonix) 40 mg PO BID [facility] Last Admin: 09/13/18 09:50 Dose: 40 mg Promethazine HCl (Phenergan) 12.5 mg IV Q6H PRN PRN PRN Reason: NAUSEA/VOMITING Senna/Docusate Sodium (Senokot-S, Inocencia-Colace) 1 tablet PO PRN PRN PRN Reason: Constipation Sevelamer Carbonate (Renvela) 800 mg PO TIDCM [facility] Last Admin: 09/13/18 11:59 Dose: 800 mg Sodium Chloride () 5 - 30 ml IV UD PRN PRN Reason: SALINE FLUSH Last Admin: 09/13/18 02:16 Dose: 10 ml Tamsulosin HCl (Flomax) 0.4 mg PO BID [facility] Last Admin: 09/13/18 09:49 Dose: 0.4 mg Medical Necessity - Tobacco Use Smoking Status: Former smoker Tobacco Use: Non-smoker Assessment/Plan All Active Problems Acute viral bronchitis (Acute) Generalized weakness (Acute) Generalized weakness (Acute) Transient expressive aphasia (Resolved) Near syncope (Acute) Hypotension (Acute) 1. suspected acute viral bronchitis fever resolved CXR showed no infiltrate continue to monitor off of antibiotics. Given age and medical complexity, will continue to monitor while in the hospital overnight 2. ESRD had HD today (09/13) nephrology following. 3. Debility minimal assist with physical therapy Patient denies homegoing needs 4. DVT proph: SQ heparin. Code Visit Inpatient E&M: 99455 Subs Hosp L2
--- NOTE | 2018-09-13 16:08 | PN_ITS ---
Patient Problems: Active and Suspected Problems Acute viral bronchitis (Acute) Generalized weakness (Acute) Subjective: Denies any complaints. Had HD today. Vitals/I&O's: Vital Signs Temp Pulse Resp BP Pulse Ox 37.3 C 69 18 159/57 H 96 09/13/18 14:50 09/13/18 14:50 09/13/18 14:50 09/13/18 14:50 09/13/18 14:50 Oxygen Flow Rate (L/min) 2 Oxygen Delivery Method Room Air Weight: 85.417 kg Body Mass Index (BMI) 35.5 Finger Stick Blood Glucose 116 Intake and Output for Last 24 Hours 09/11/18 09/12/18 09/13/18 23:59 23:59 23:59 Intake Total 1584 / 1584 Balance 1584 / 1584 General: Alert, No apparent distress HEENT: Atraumatic, Normocephalic Oral: Moist Mucosa, No Gingival or Mucosal Lesions/ Ulcerations Neck: No Nodes, Thyroid Normal Size and Texture Lungs: Clear to auscultation, Normal air movement, No rhonchi, No wheeze Cardiovascular: Regular rate, Regular Rhythm, Normal S1, Normal S2, No murmurs Abdomen: Bowel Sounds Present, Soft, Non Tender, Non-Distended, No Hepato- splenomegaly Extremities: No edema, No Calf Tenderness Skin: No rashes, No breakdown Musculoskeletal: No Tenderness to Palpation of Joints or Extremities, No Muscle Wasting Psych/Mental Status: Normal Affect, Appropriate Microbiology Past 72 Hours 09/13/18 02:13 Interface Orders Respiratory Panel (PCR) - Final Laboratory Results 09/12/18 22:05: WBC 7.1, RBC 4.02 L, Hgb 12.0 L, Hct 37.7 L, MCV 93.8, MCH 29.9, MCHC 31.8 L, RDW 14.7 H, RDW Differential 50.2 H, Plt Count 102 L, MPV 8.9, Immature Gran % (Auto) 0.100, Neut % (Auto) 72.7 H, Lymph % (Auto) 14.0 L, Leslie % (Auto) 12.8 H, Eos % (Auto) 0.3, Baso % (Auto) 0.1, Absolute Neuts (auto) 5.2, Absolute Lymphs (auto) 0.99, Total Counted Not Reportable 09/12/18 22:05: PT 15.0 H, INR 1.2, APTT 32.0 09/12/18 22:05: Sodium 133 L, Potassium 3.6, Chloride 95 L, Carbon Dioxide 27.0, Anion Gap 11, BUN 37 H, Creatinine 5.14 H, Estim Creat Clear Calc 9.38, Est GFR (MDRD) Af Amer 14 L, Est GFR (MDRD) Non-Af 12 L, BUN/Creatinine Ratio 7.2 L, Glucose 119 H, Calcium 10.7 H, Total Bilirubin 0.70, AST 19, ALT 24, Alkaline Phosphatase 101, Troponin I < 0.015, Total Protein 7.0, Albumin 2.2 L, Globulin 4.8 H, Albumin/Globulin Ratio 0.5 L 09/12/18 22:05: Magnesium 1.8 09/12/18 23:24: Urine Color Yellow, Urine Clarity Clear, Urine pH 8.0, Ur Speci fic Lockridge 1.015, Urine Protein 100 H, Urine Glucose (UA) 250 H, Urine Ketones Negative, Urine Occult Blood 10 H, Urine Nitrite Negative, Urine Bilirubin Negative, Urine Urobilinogen Normal, Ur Leukocyte Esterase 100 H, Urine RBC 0-5 SEEN, Urine WBC 10-25 SEEN, Ur Squamous Epith Cells 0 SEEN, Urine Bacteria 0 SEEN, Urine Mucus 0 SEEN 09/13/18 06:48: WBC 6.7, RBC 4.06 L, Hgb 12.1 L, Hct 37.7 L, MCV 92.9, MCH 29.8, MCHC 32.1, RDW 14.8 H, RDW Differential 50.4 H, Plt Count 98 L, MPV 9.7, Immature Gran % (Auto) 0.100, Neut % (Auto) 68.2, Lymph % (Auto) 15.5 L, Leslie % (Auto) 15.5 H, Eos % (Auto) 0.6, Baso % (Auto) 0.1, Absolute Neuts (auto) 4.6, Absolute Lymphs (auto) 1.04, Total Counted Not Reportable 09/13/18 06:48: Sodium 128 L, Potassium 3.8, Chloride 97 L, Carbon Dioxide 22.0, Anion Gap 9, BUN 39 H, Creatinine 5.11 H, Estim Creat Clear Calc 8.67, Est GFR (MDRD) Af Amer 14 L, Est GFR (MDRD) Non-Af 12 L, BUN/Creatinine Ratio 7.6 L, Glucose 84, Calcium 10.0 Current Medications Acetaminophen (Tylenol) 650 mg PO Q6H PRN PRN PRN Reason: Mild Pain (scale 0-3)/T>100.7 Last Admin: 09/13/18 06:13 Dose: 650 mg Al Hydroxide/Mg Hydroxide (Mylanta Ii) 30 ml PO Q6H PRN PRN PRN Reason: Gastric burning Albuterol Sulfate (Ventolin Aerosols) 2.5 mg INHALATION Q2H PRN PRN PRN Reason: SHORTNESS OF BREATH Albuterol/Ipratropium (Duoneb) 3 ml INHALATION Q4H.RT [facility] Last Admin: 09/13/18 14:27 Dose: Not Given Calamine/Phenol (Calmoseptine Ointment) 1 applic TOPICAL 4X/DAY [facility]; Protocol Last Admin: 09/13/18 14:48 Dose: 1 applicatio [facility] Last Admin: 09/13/18 09:52 Dose: 325 mg Guaifenesin (Mucinex) 600 mg PO BID [facility] Last Admin: 09/13/18 09:50 Dose: 600 mg Heparin Sodium (Porcine) (Heparin Na) 5,000 unit SC Q12 [facility] Last Admin: 09/13/18 09:43 Dose: 5,000 unit Sodium Chloride () 1,000 mls @ 75 mls/hr IV .[id number] [facility] Last Admin: 09/13/18 14:50 Dose: 75 mls/hr Magnesium Hydroxide (Milk Of Magnesia) 30 ml PO DAILY PRN PRN PRN Reason: Constipation Metoprolol Tartrate (Lopressor (Beta Minoo)) 50 mg PO BID [facility] Last Admin: 09/13/18 09:50 Dose: 50 mg Midodrine (Proamatine) 10 mg PO MoWeFr@1000 [facility] Last Admin: 09/13/18 09:50 Dose: 10 mg Nutritional Formula (Nepro Carb Steady) 120 ml PO BID [facility] Last Admin: 09/13/18 09:52 Dose: 120 ml Nystatin (Mycostatin Powder) 1 applic TOPICAL TID [facility]; Protocol Last Admin: 09/13/18 14:49 Dose: 1 applicatio Ondansetron HCl (Zofran) 4 mg IV Q8H PRN PRN PRN Reason: NAUSEA Oxycodone HCl (Oxyir) 5 mg PO Q8H PRN PRN PRN Reason: PAIN Pantoprazole Sodium (Protonix) 40 mg PO BID [facility] Last Admin: 09/13/18 09:50 Dose: 40 mg Promethazine HCl (Phenergan) 12.5 mg IV Q6H PRN PRN PRN Reason: NAUSEA/VOMITING Senna/Docusate Sodium (Senokot-S, Inocencia-Colace) 1 tablet PO PRN PRN PRN Reason: Constipation Sevelamer Carbonate (Renvela) 800 mg PO TIDCM [facility] Last Admin: 09/13/18 11:59 Dose: 800 mg Sodium Chloride () 5 - 30 ml IV UD PRN PRN Reason: SALINE FLUSH Last Admin: 09/13/18 02:16 Dose: 10 ml Tamsulosin HCl (Flomax) 0.4 mg PO BID [facility] Last Admin: 09/13/18 09:49 Dose: 0.4 mg Medical Necessity - Tobacco Use Smoking Status: Former smoker Tobacco Use: Non-smoker Assessment/Plan All Active Problems Acute viral bronchitis (Acute) Generalized weakness (Acute) Generalized weakness (Acute) Transient expressive aphasia (Resolved) Near syncope (Acute) Hypotension (Acute) 1. suspected acute viral bronchitis * fever resolved * CXR showed no infiltrate * continue to monitor off of antibiotics. * Given age and medical complexity, will continue to monitor while in the hospital overnight 2. ESRD * had HD today (09/13) * nephrology following. 3. Debility * minimal assist with physical therapy * Patient denies homegoing needs 4. DVT proph: SQ heparin. Code Visit Inpatient E&M: 82580 Subs Hosp L2
[2018-09-14] VITALS (7 sets, daily range): BP systolic 109–141; BP diastolic 58–69; PULSE 70–90; RESP 18; TEMP 36.8–37.6; O2SAT 93–98
[2018-09-14] MEDS: 0.9% NaCl Peripheral Flush Adult/Peds IV (05:49)
[2018-09-14] MEDS: Nystatin Powder 15gm Bottle 1 APPLIC TOPICAL ×3 (05:50→23:08)
[2018-09-14 06:26] LABS: Absolute Lymphocyte Count 0.96 X10^3/ul (0.83-4.51); Absolute Neutrophil Count 3.3 X10^3/uL (2.0-7.7); Basophil# 0.02 X10^3/uL; Basophil% 0.4 % (0-1); Differential Indicated SCAN CRITERIA MET; Eosinophil# 0.02 X10^3/uL; Eosinophils% 0.4 % (0-5); Hematocrit 35.4 % (40-54); Hemoglobin 11.5 g/dl (13.0-16.5); Lymphocyte # 0.96 X10^3/ul (4.0); Mean Corp Hgb Conc 32.5 g/gl (32-36); Mean Corpuscular Hgb 30.4 pg (27.0-32.0); Mean Corpuscular Volume 93.7 fL (80-94); Mean Platelet Vol. 9.1 fl (6.2-12.0); Monocyte# 0.75 X10^3/uL; Monocyte% 14.8 % (0-10); Neutrophil # 3.29 X10^3/uL (2.7-7.7); POSITIVE COUNT NO; POSITIVE DIFFERENTIAL NO; POSITIVE MORPHOLOGY YES; Platelet Count 113 K/mm3 (150-450); RBC Distribution Width CV 14.7 % (11.6-14.6); RBC Distribution Width SD 47.7 fl (35.1-43.9); Red Blood Count 3.78 M/mm3 (4.6-6.2); White Blood Count 5.1 K/mm3 (4.4-11.0)
[2018-09-14 06:43] LABS: BUN 24 mg/dL (7-18); Creatinine, Serum 3.47 mg/dL (0.70-1.30); Estimated Creatinine Clearance 12.77 ml/min; Glucose 86 mg/dL (74-106)
[2018-09-14 06:44] LABS: Anion Gap 10 (5-15); BUN/Creat Ratio 6.9 RATIO (10-20); Calcium,Total 9.2 mg/dL (8.5-10.1); Chloride 98 mmol/L (98-107); EST Glomerular Filtration Rate 18 mL/min (>60); Est Glom Filt Rate - Afr Amer 22 mL/min (>60); Potassium 3.5 mmol/L (3.5-5.1); Sodium Level 135 mmol/L (136-145)
[2018-09-14 07:00] LABS: Differential Comment SCANNED
[2018-09-14] MEDS: Ipratropium/Albuterol Sulfate 3 ML AMPUL.NEB INHALATION (07:15)
[2018-09-14] MEDS: Pantoprazole Sodium 40 MG Tablet PO ×2 (09:08→23:07)
[2018-09-14] MEDS: guaiFENesin 600 MG Tablet PO ×2 (09:09→23:07)
[2018-09-14] MEDS: Menthol/Lanolin/Calamine/Znox 113 GM Tube 1 APPLIC TOPICAL ×4 (09:09→23:06)
[2018-09-14] MEDS: SEVELAMER CARBONATE 800 MG TABLET PO ×3 (09:13→17:46)
[2018-09-14] MEDS: Ferrous Sulfate 325 MG Tablet PO ×2 (09:13→17:45)
[2018-09-14] MEDS: Tamsulosin HCl 0.4 MG Capsule PO ×2 (09:14→23:07)
[2018-09-14] MEDS: Metoprolol Tartrate 50 MG Tablet PO ×2 (09:14→23:07)
[2018-09-14] MEDS: Heparin Injection (Vial) 5,000 UNIT/ML VIAL 5000 UNIT SC ×2 (09:16→23:07)
--- NOTE | 2018-09-14 10:19 | PCM.PN.REN ---
Patient Problems: Active and Suspected Problems Acute viral bronchitis (Acute) Generalized weakness (Acute) Subjective: No nausea No vomiting No SOB. No CP - Physical Exam General: Alert, Oriented x3 HEENT: Atraumatic Oral: Moist Mucosa Neck: Supple, No JVD Lungs: Clear to auscultation Cardiovascular: Regular rate, Regular Rhythm, Normal S1, Normal S2 Abdomen: Bowel Sounds Present, Soft, Non Tender Extremities: No clubbing, No cyanosis, No edema Skin: No rashes Musculoskeletal: No Tenderness to Palpation of Joints or Extremities Lymphatic: No Cervical, Supraclavicular, or Inguinal Adenopathy Neurological: Cranial nerves II-XII grossly intact, Neuro grossly intact Psych/Mental Status: Appropriate Vital Signs Temp Pulse Resp BP Pulse Ox 99.6 F H 90 18 133/64 H 94 09/14/18 09:05 09/14/18 09:14 09/14/18 09:05 09/14/18 09:05 09/14/18 09:05 Oxygen Flow Rate (L/min) 2 Oxygen Delivery Method Room Air Weight: 87.2 kg Body Mass Index (BMI) 35.5 Finger Stick Blood Glucose 116 Intake and Output for Last 24 Hours 09/12/18 09/13/18 09/14/18 23:59 23:59 23:59 Intake Total 2350 / 2350 300 / 300 Output Total 1250 / 1250 Balance 1100 / 1100 300 / 300 Microbiology Past 72 Hours 09/13/18 02:13 Respiratory Panel (PCR) - Final Interface Orders Laboratory Tests Past 24 Hrs 09/12/18 09/14/18 09/14/18 22:05 06:06 06:06 WBC 5.1 RBC 3.78 L Hgb 11.5 L Hct 35.4 L MCV 93.7 MCH 30.4 MCHC 32.5 RDW 14.7 H RDW Differential 47.7 H Plt Count 113 L MPV 9.1 Immature Gran % (Auto) 0.400 Neut % (Auto) 65.0 Lymph % (Auto) 19.0 Deuel % (Auto) 14.8 H Eos % (Auto) 0.4 Baso % (Auto) 0.4 Absolute Neuts (auto) 3.3 Absolute Lymphs (auto) 0.96 Total Counted Not Reportable Differential Comment SCANNED Sodium 135 L Potassium 3.5 Chloride 98 Carbon Dioxide 27.0 Anion Gap 10 BUN 24 H Creatinine 3.47 H Estim Creat Clear Calc 12.77 Est GFR (MDRD) Af Amer 22 L Est GFR (MDRD) Non-Af 18 L BUN/Creatinine Ratio 6.9 L Glucose 86 Calcium 9.2 Hep Bs Antibody Pending Medical Necessity - Tobacco Use Smoking Status: Former smoker Tobacco Use: Non-smoker Assessment/Plan All Active Problems Acute viral bronchitis (Acute) Generalized weakness (Acute) Generalized weakness (Acute) Transient expressive aphasia (Resolved) Near syncope (Acute) Hypotension (Acute) 1. End Stage renal disease on hemodialysis Thursday Last HD session 09/13. No need for HD session today Next HD session tomorrow 2. Mild hyponatremia -improved with UF. Keep O>I 3. Anemia of chronic disease -Hemoglobin is at goal 4. Hypertension -Pressure stable 5. Acute bronchitis -Per primary team Will continue to follow AMISH LYNNE MD
--- NOTE | 2018-09-14 10:27 | CASEMGMT ---
Social Work Note PT has Living Will scanned into chart but no HCPOA. Per emergency response officer questions, pt has completed both and submitted to [facility]. SW met with pt and informed him that [facility] doesn't currently have HCPOA. Pt states that his will be able to bring in the HCPOA document. Reba Alcantara TENNIS INSTRUCTOR, RECORD TABULATING CLERK
--- NOTE | 2018-09-14 10:31 | DCINST_ITS ---
- Discharge Diagnoses Current Active Problems: Current Active and Chronic Problems Acute viral bronchitis (Acute) Generalized weakness (Acute) You will use the following diet at home:: Renal (restricted protein/sodium) Your food should be the consistency of: Regular Your liquids should be the consistency of: Regular/Thin Discharge Activity: Return to Normal Activity Call your doctor if you observe: Shortness of breath Allergies/Adverse Reactions: Allergies Sulfa (Sulfonamide Antibiotics) Allergy (Severe, Verified 09/12/18 21:01) Hives Medications to take at Discharge Sennosides/Docusate Sodium [Docusate Sodium-Senna Tablet] 1 ea PO PRN PRN 08/07/16 Tamsulosin HCl [Flomax] 0.4 mg PO BID 10/23/16 Metoprolol Tartrate [Lopressor (beta keila)] 50 mg PO BID tab 11/03/16 Midodrine HCl [Proamatine] 10 mg PO MOWEFR 06/17/18 Oxycodone [Oxyir] 5 mg PO Q8H PRN PRN 06/17/18 Sevelamer HCl [Renagel] 800 mg PO TIDCM 06/17/18 Nepro Liquid [Nepro Carb Steady] 120 ml PO BID 06/30/18 Ferrous Sulfate 325 mg PO BIDCM #60 tab 07/02/18 Pantoprazole Sodium [Protonix] 40 mg PO BID #60 tab 07/02/18 Guaifenesin [Mucinex] 600 mg PO BID #10 tablet 09/14/18 The following prescriptions were given: Guaifenesin [Mucinex] 600 mg PO BID #10 tablet Primary Care Physician: Dona Santiago MD [Primary Care Provider] - Within 2 Weeks Test Results: Test results from this visit will be discussed in further detail at your follow- up appointment, if applicable. [facility]: Thursday, , Thursday Proposed Discharge Date: 09/14/18
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
--- NOTE | 2018-09-14 14:15 | NURSING ---
Patient's had concerns regarding dc. Therapy was asked by this RN to see patient again to attempt to get oob. This RN was in room when therapy reevaluated and the patient took about 10-15 minutes to get to EOB and then was barely able to take a step once he was standing. Patient's also wanted to speak with Dr. Diaz regarding dc and care. patient service associate sent message to him to please come and speak with .
--- NOTE | 2018-09-14 15:03 | CASEMGMT ---
Social Work Note SW received referral for SNF placement. RN GIOVANNY Chen updated this worker that pt and pt's are agreeable to TCU at discharge. SW placed a call to referral line and provided referral. SW received call from [facility] who states TCU is able to accept pt. Pt will need three midnight stay with a projected discharge on for Medicare to cover SNF placement. Plan: TCU Reba Alcantara LABORER [employer], [employer]IST[employer] PROGRAMS DIRECTOR
[2018-09-14] MEDS: Nepro Liquid 120 ML LIQUID PO (23:09)
[2018-09-15 03:11] VITALS: BP 136/62; PULSE 70; RESP 18; TEMP 36.6; O2SAT 92
[2018-09-15] MEDS: Nystatin Powder 15gm Bottle 1 APPLIC TOPICAL ×3 (05:42→21:11)
[2018-09-15 08:27] VITALS: BP 123/64; PULSE 81; RESP 18; TEMP 37.8; O2SAT 93
[2018-09-15] MEDS: Midodrine HCl 5 MG Tablet 10 MG PO (08:32)
[2018-09-15] MEDS: Ferrous Sulfate 325 MG Tablet PO ×2 (08:32→21:10)
[2018-09-15 08:33] VITALS: PULSE 81
[2018-09-15] MEDS: Heparin Injection (Vial) 5,000 UNIT/ML VIAL 5000 UNIT SC ×2 (08:33→21:10)
[2018-09-15] MEDS: Menthol/Lanolin/Calamine/Znox 113 GM Tube 1 APPLIC TOPICAL ×3 (08:33→21:12)
[2018-09-15] MEDS: Metoprolol Tartrate 50 MG Tablet PO ×2 (08:33→21:12)
[2018-09-15] MEDS: Pantoprazole Sodium 40 MG Tablet PO ×2 (08:34→21:12)
[2018-09-15] MEDS: guaiFENesin 600 MG Tablet PO ×2 (08:34→21:12)
[2018-09-15] MEDS: Tamsulosin HCl 0.4 MG Capsule PO ×2 (08:34→21:11)
[2018-09-15] MEDS: SEVELAMER CARBONATE 800 MG TABLET PO ×3 (08:34→21:12)
[2018-09-15] MEDS: Acetaminophen 325 MG Tablet 650 MG PO (08:37)
[2018-09-15] MEDS: Nepro Liquid 120 ML LIQUID PO ×2 (08:37→21:13)
--- NOTE | 2018-09-15 09:46 | PCM.PN.REN ---
Patient Problems: Active and Suspected Problems Acute viral bronchitis (Acute) Generalized weakness (Acute) Subjective: Pt has no nausea/vomiting. No SOB. No CP - Physical Exam General: Alert, Oriented x3 HEENT: Atraumatic Oral: Moist Mucosa Neck: Supple, No JVD Lungs: Clear to auscultation, Normal air movement, No rhonchi, No wheeze Cardiovascular: Regular rate, Regular Rhythm, Normal S1 Abdomen: Bowel Sounds Present, Soft Extremities: No clubbing, No cyanosis, No edema Skin: No rashes Lymphatic: No Cervical, Supraclavicular, or Inguinal Adenopathy Neurological: Cranial nerves II-XII grossly intact, Neuro grossly intact Psych/Mental Status: Normal Affect Vital Signs Temp Pulse Resp BP Pulse Ox 100.0 F H 81 18 123/64 H 93 09/15/18 08:27 09/15/18 08:33 09/15/18 08:27 09/15/18 08:27 09/15/18 08:27 Oxygen Flow Rate (L/min) 2 Oxygen Delivery Method Room Air Weight: 86.727 kg Body Mass Index (BMI) 35.5 Finger Stick Blood Glucose 116 Intake and Output for Last 24 Hours 09/13/18 09/14/18 09/15/18 23:59 23:59 23:59 Intake Total 2350 / 2350 600 / 600 300 / 300 Output Total 1250 / 1250 Balance 1100 / 1100 600 / 600 300 / 300 Microbiology Past 72 Hours 09/12/18 22:22 Blood Culture - Preliminary Blood Culture (Wb) - Arm Right No growth in 48 hours. 09/12/18 22:05 Blood Culture - Preliminary Blood Culture (Wb) - Anticubital Right No growth in 48 hours. 09/13/18 02:13 Respiratory Panel (PCR) - Final Interface Orders Medical Necessity - Tobacco Use Smoking Status: Former smoker Tobacco Use: Non-smoker Assessment/Plan All Active Problems SIRS (systemic inflammatory response syndrome) (Resolved) Acute viral bronchitis (Acute) Generalized weakness (Acute) Generalized weakness (Acute) Transient expressive aphasia (Resolved) Near syncope (Acute) Hypotension (Acute) 1. End Stage renal disease on hemodialysis Thursday. HD session today as per the chronic order 2. Mild hyponatremia -improved with UF. Keep O>I 3. Anemia of chronic disease -Hemoglobin is at goal 4. Hypertension -Pressure stable 5. Acute bronchitis -Per primary team Will continue to follow AMISH LYNNE MD
--- NOTE | 2018-09-15 10:20 | PCM.PN.HOSP ---
Patient Problems: Active and Suspected Problems Acute viral bronchitis (Acute) Generalized weakness (Acute) Subjective: diffuse aches. Vitals/I&O's: Vital Signs Temp Pulse Resp BP Pulse Ox 37.8 C H 81 18 123/64 H 93 09/15/18 08:27 09/15/18 08:33 09/15/18 08:27 09/15/18 08:27 09/15/18 08:27 Oxygen Flow Rate (L/min) 2 Oxygen Delivery Method Room Air Weight: 86.727 kg Body Mass Index (BMI) 35.5 Finger Stick Blood Glucose 116 Intake and Output for Last 24 Hours 09/13/18 09/14/18 09/15/18 23:59 23:59 23:59 Intake Total 2350 / 2350 600 / 600 300 / 300 Output Total 1250 / 1250 Balance 1100 / 1100 600 / 600 300 / 300 General: Alert, No apparent distress HEENT: Atraumatic, Normocephalic Oral: Moist Mucosa, No Gingival or Mucosal Lesions/ Ulcerations Neck: No Nodes, Thyroid Normal Size and Texture Lungs: Clear to auscultation, Normal air movement, No rhonchi, No wheeze Cardiovascular: Regular rate, Regular Rhythm, Normal S1, Normal S2, No murmurs Abdomen: Bowel Sounds Present, Soft, Non Tender, Non-Distended, No Hepato-splenomegaly Extremities: No edema, No Calf Tenderness Skin: No rashes, No breakdown Psych/Mental Status: Normal Affect, Appropriate Microbiology Past 72 Hours 09/12/18 22:22 Blood Culture (Wb) - Arm Right Blood Culture - Preliminary No growth in 48 hours. 09/12/18 22:05 Blood Culture (Wb) - Anticubital Right Blood Culture - Preliminary No growth in 48 hours. 09/13/18 02:13 Interface Orders Respiratory Panel (PCR) - Final Current Medications Acetaminophen (Tylenol) 650 mg PO Q6H PRN PRN PRN Reason: Mild Pain (scale 0-3)/T>100.7 Last Admin: 09/15/18 08:37 Dose: 650 mg Al Hydroxide/Mg Hydroxide (Mylanta Ii) 30 ml PO Q6H PRN PRN PRN Reason: Gastric burning Albuterol Sulfate (Ventolin Aerosols) 2.5 mg INHALATION Q2H PRN PRN PRN Reason: SHORTNESS OF BREATH Albuterol/Ipratropium (Duoneb) 3 ml INHALATION Q4H.RT [facility] Last Admin: 09/15/18 06:58 Dose: Not Given Calamine/Phenol (Calmoseptine Ointment) 1 applic TOPICAL 4X/DAY [facility]; Protocol Last Admin: 09/15/18 08:33 Dose: 1 applicatio Ferrous Sulfate (Ferrous Sulfate) 325 mg PO BIDCM [facility] Last Admin: 09/15/18 08:32 Dose: 325 mg Guaifenesin (Mucinex) 600 mg PO BID [facility] Last Admin: 09/15/18 08:34 Dose: 600 mg Heparin Sodium (Porcine) (Heparin Na) 5,000 unit SC Q12 [facility] Last Admin: 09/15/18 08:33 Dose: 5,000 unit Magnesium Hydroxide (Milk Of Magnesia) 30 ml PO DAILY PRN PRN PRN Reason: Constipation Metoprolol Tartrate (Lopressor (Beta Minoo)) 50 mg PO BID [facility] Last Admin: 09/15/18 08:33 Dose: 50 mg Midodrine (Proamatine) 10 mg PO MoWeFr@1000 [facility] Last Admin: 09/15/18 08:32 Dose: 10 mg Nutritional Formula (Nepro Carb Steady) 120 ml PO BID [facility] Last Admin: 09/15/18 08:37 Dose: 120 ml Nystatin (Mycostatin Powder) 1 applic TOPICAL TID [facility]; Protocol Last Admin: 09/15/18 05:42 Dose: 1 applicatio Ondansetron HCl (Zofran) 4 mg IV Q8H PRN PRN PRN Reason: NAUSEA Oxycodone HCl (Oxyir) 5 mg PO Q8H PRN PRN PRN Reason: PAIN Pantoprazole Sodium (Protonix) 40 mg PO BID [facility] Last Admin: 09/15/18 08:34 Dose: 40 mg Promethazine HCl (Phenergan) 12.5 mg IV Q6H PRN PRN PRN Reason: NAUSEA/VOMITING Senna/Docusate Sodium (Senokot-S, Inocencia-Colace) 1 tablet PO PRN PRN PRN Reason: Constipation Sevelamer Carbonate (Renvela) 800 mg PO TIDCM [facility] Last Admin: 09/15/18 08:34 Dose: 800 mg Sodium Chloride () 5 - 30 ml IV UD PRN PRN Reason: SALINE FLUSH Last Admin: 09/14/18 05:49 Dose: 10 ml Tamsulosin HCl (Flomax) 0.4 mg PO BID [facility] Last Admin: 09/15/18 08:34 Dose: 0.4 mg Medical Necessity - Tobacco Use Smoking Status: Former smoker Tobacco Use: Non-smoker Assessment/Plan All Active Problems SIRS (systemic inflammatory response syndrome) (Resolved) Acute viral bronchitis (Acute) Generalized weakness (Acute) Generalized weakness (Acute) Transient expressive aphasia (Resolved) Near syncope (Acute) Hypotension (Acute) 1. suspected acute viral bronchitis fever resolved CXR showed no infiltrate continue to monitor off of antibiotics. Given age and medical complexity, will continue to monitor while in the hospital overnight 2. ESRD had HD on the and will have today. nephrology following. 3. Debility now requiring much more assistance DC to home scuttled yesterday. plan now is for SNF 09/16 4. DVT proph: SQ heparin. DW patient's . Code Visit Inpatient E&M: 59518 Subs Hosp L2
--- NOTE | 2018-09-15 10:23 | PN_ITS ---
Patient Problems: Active and Suspected Problems Acute viral bronchitis (Acute) Generalized weakness (Acute) Subjective: diffuse aches. Vitals/I&O's: Vital Signs Temp Pulse Resp BP Pulse Ox 37.8 C H 81 18 123/64 H 93 09/15/18 08:27 09/15/18 08:33 09/15/18 08:27 09/15/18 08:27 09/15/18 08:27 Oxygen Flow Rate (L/min) 2 Oxygen Delivery Method Room Air Weight: 86.727 kg Body Mass Index (BMI) 35.5 Finger Stick Blood Glucose 116 Intake and Output for Last 24 Hours 09/13/18 09/14/18 09/15/18 23:59 23:59 23:59 Intake Total 2350 / 2350 600 / 600 300 / 300 Output Total 1250 / 1250 Balance 1100 / 1100 600 / 600 300 / 300 General: Alert, No apparent distress HEENT: Atraumatic, Normocephalic Oral: Moist Mucosa, No Gingival or Mucosal Lesions/ Ulcerations Neck: No Nodes, Thyroid Normal Size and Texture Lungs: Clear to auscultation, Normal air movement, No rhonchi, No wheeze Cardiovascular: Regular rate, Regular Rhythm, Normal S1, Normal S2, No murmurs Abdomen: Bowel Sounds Present, Soft, Non Tender, Non-Distended, No Hepato-splenomegaly Extremities: No edema, No Calf Tenderness Skin: No rashes, No breakdown Psych/Mental Status: Normal Affect, Appropriate Microbiology Past 72 Hours 09/12/18 22:22 Blood Culture (Wb) - Arm Right Blood Culture - Preliminary No growth in 48 hours. 09/12/18 22:05 Blood Culture (Wb) - Anticubital Right Blood Culture - Preliminary No growth in 48 hours. 09/13/18 02:13 Interface Orders Respiratory Panel (PCR) - Final Current Medications Acetaminophen (Tylenol) 650 mg PO Q6H PRN PRN PRN Reason: Mild Pain (scale 0-3)/T>100.7 Last Admin: 09/15/18 08:37 Dose: 650 mg Al Hydroxide/Mg Hydroxide (Mylanta Ii) 30 ml PO Q6H PRN PRN PRN Reason: Gastric burning Albuterol Sulfate (Ventolin Aerosols) 2.5 mg INHALATION Q2H PRN PRN PRN Reason: SHORTNESS OF BREATH Albuterol/Ipratropium (Duoneb) 3 ml INHALATION Q4H.RT [facility] Last Admin: 09/15/18 06:58 Dose: Not Given Calamine/Phenol (Calmoseptine Ointment) 1 applic TOPICAL 4X/DAY [facility]; Protocol Last Admin: 09/15/18 08:33 Dose: 1 applicatio Ferrous Sulfate (Ferrous Sulfate) 325 mg PO BIDCM [facility] Last Admin: 09/15/18 08:32 Dose: 325 mg Guaifenesin (Mucinex) 600 mg PO BID [facility] Last Admin: 09/15/18 08:34 Dose: 600 mg Heparin Sodium (Porcine) (Heparin Na) 5,000 unit SC Q12 [facility] Last Admin: 09/15/18 08:33 Dose: 5,000 unit Magnesium Hydroxide (Milk Of Magnesia) 30 ml PO DAILY PRN PRN PRN Reason: Constipation Metoprolol Tartrate (Lopressor (Beta Minoo)) 50 mg PO BID [facility] Last Admin: 09/15/18 08:33 Dose: 50 mg Midodrine (Proamatine) 10 mg PO MoWeFr@1000 [facility] Last Admin: 09/15/18 08:32 Dose: 10 mg Nutritional Formula (Nepro Carb Steady) 120 ml PO BID [facility] Last Admin: 09/15/18 08:37 Dose: 120 ml Nystatin (Mycostatin Powder) 1 applic TOPICAL TID [facility]; Protocol Last Admin: 09/15/18 05:42 Dose: 1 applicatio Ondansetron HCl (Zofran) 4 mg IV Q8H PRN PRN PRN Reason: NAUSEA Oxycodone HCl (Oxyir) 5 mg PO Q8H PRN PRN PRN Reason: PAIN Pantoprazole Sodium (Protonix) 40 mg PO BID [facility] Last Admin: 09/15/18 08:34 Dose: 40 mg Promethazine HCl (Phenergan) 12.5 mg IV Q6H PRN PRN PRN Reason: NAUSEA/VOMITING Senna/Docusate Sodium (Senokot-S, Inocencia-Colace) 1 tablet PO PRN PRN PRN Reason: Constipation Sevelamer Carbonate (Renvela) 800 mg PO TIDCM [facility] Last Admin: 09/15/18 08:34 Dose: 800 mg Sodium Chloride () 5 - 30 ml IV UD PRN PRN Reason: SALINE FLUSH Last Admin: 09/14/18 05:49 Dose: 10 ml Tamsulosin HCl (Flomax) 0.4 mg PO BID [facility] Last Admin: 09/15/18 08:34 Dose: 0.4 mg Medical Necessity - Tobacco Use Smoking Status: Former smoker Tobacco Use: Non-smoker Assessment/Plan All Active Problems SIRS (systemic inflammatory response syndrome) (Resolved) Acute viral bronchitis (Acute) Generalized weakness (Acute) Generalized weakness (Acute) Transient expressive aphasia (Resolved) Near syncope (Acute) Hypotension (Acute) 1. suspected acute viral bronchitis * fever resolved * CXR showed no infiltrate * continue to monitor off of antibiotics. * Given age and medical complexity, will continue to monitor while in the hospital overnight 2. ESRD * had HD on the and will have today. * nephrology following. 3. Debility * now requiring much more assistance * DC to home scuttled yesterday. plan now is for SNF 09/16 4. DVT proph: SQ heparin. DW patient's . Code Visit Inpatient E&M: 95973 Subs Hosp L2
[2018-09-15 10:24] LABS: Hep B Surface Antibodies Non Reactive (.)
[2018-09-15] MEDS: oxyCODONE 5 MG Tablet PO (10:56)
--- NOTE | 2018-09-15 11:15 | CASEMGMT ---
Social Work Note SW met with pt and pt's in room. SW updated pt and pt's that pt has been accepted to TCU and pt will discharge there tomorrow if medically cleared. Pt and pt's states understanding. Plan: TCU tomorrow (Sep, 1) Reba Alcantara MSW, RETAIL TRAINING MANAGER
[2018-09-15 16:03] VITALS: BP 126/54; PULSE 82; RESP 16; TEMP 36.9; O2SAT 94
[2018-09-15 21:12] VITALS: PULSE 73
[2018-09-15 21:16] VITALS: BP 95/54; PULSE 76; RESP 16; TEMP 37.5; O2SAT 92
[2018-09-16 03:35] VITALS: BP 101/65; PULSE 67; RESP 18; TEMP 37.1; O2SAT 92
[2018-09-16] MEDS: Nystatin Powder 15gm Bottle 1 APPLIC TOPICAL ×2 (05:24→13:56)
[2018-09-16 07:04] VITALS: O2SAT 96
[2018-09-16 09:48] VITALS: BP 96/75; PULSE 72; RESP 18; TEMP 36.8; O2SAT 94
--- NOTE | 2018-09-16 09:50 | PCM.PN.REN ---
Patient Problems: Active and Suspected Problems Acute viral bronchitis (Acute) Generalized weakness (Acute) Subjective: Pt is doing okay. No nausea No vomiting. No SOB tolerated HD session well yesterday - Physical Exam General: Oriented x3 HEENT: Atraumatic Oral: Moist Mucosa Neck: Supple, No JVD Lungs: Clear to auscultation, Normal air movement, No rhonchi, No wheeze Cardiovascular: Regular rate, Regular Rhythm, Normal S1, Normal S2 Abdomen: Bowel Sounds Present, Soft, Non Tender Extremities: No clubbing, No cyanosis, No edema Skin: No rashes Musculoskeletal: No Tenderness to Palpation of Joints or Extremities Lymphatic: No Cervical, Supraclavicular, or Inguinal Adenopathy Neurological: Cranial nerves II-XII grossly intact, Neuro grossly intact Psych/Mental Status: Normal Affect Vital Signs Temp Pulse Resp BP Pulse Ox 98.3 F 72 18 96/75 94 09/16/18 09:48 09/16/18 09:48 09/16/18 09:48 09/16/18 09:48 09/16/18 09:48 Oxygen Flow Rate (L/min) 2 Oxygen Delivery Method Room Air Weight: 82.8 kg Body Mass Index (BMI) 35.5 Finger Stick Blood Glucose 116 Intake and Output for Last 24 Hours 09/14/18 09/15/18 09/16/18 23:59 23:59 23:59 Intake Total 600 / 600 300 / 300 400 / 400 Output Total 100 / 100 Balance 600 / 600 200 / 200 400 / 400 Microbiology Past 72 Hours 09/12/18 22:22 Blood Culture - Preliminary Blood Culture (Wb) - Arm Right No growth in 48 hours. 09/12/18 22:05 Blood Culture - Preliminary Blood Culture (Wb) - Anticubital Right No growth in 48 hours. 09/13/18 02:13 Respiratory Panel (PCR) - Final Interface Orders Laboratory Tests Past 24 Hrs 09/12/18 09/15/18 22:05 17:28 Hep Bs Antibody Non Reactive Hepatitis Be Antigen Pending Medical Necessity - Tobacco Use Smoking Status: Former smoker Tobacco Use: Non-smoker Assessment/Plan All Active Problems SIRS (systemic inflammatory response syndrome) (Resolved) Acute viral bronchitis (Acute) Generalized weakness (Acute) Generalized weakness (Acute) Transient expressive aphasia (Resolved) Near syncope (Acute) Hypotension (Acute) 1. End Stage renal disease on hemodialysis Thursday. Last HD session 09/15. No need for HD today. Next HD session tomorrow 2. Mild hyponatremia -improved with UF. Keep O>I 3. Anemia of chronic disease -Hemoglobin is at goal 4. Hypertension -Pressure stable 5. Acute bronchitis -Per primary team Will continue to follow AMISH LYNNE MD
[2018-09-16] MEDS: Ferrous Sulfate 325 MG Tablet PO (09:51)
[2018-09-16] MEDS: Menthol/Lanolin/Calamine/Znox 113 GM Tube 1 APPLIC TOPICAL ×2 (09:51→13:56)
[2018-09-16] MEDS: SEVELAMER CARBONATE 800 MG TABLET PO ×2 (09:51→12:00)
[2018-09-16 09:52] VITALS: PULSE 72
[2018-09-16] MEDS: Pantoprazole Sodium 40 MG Tablet PO (09:52)
[2018-09-16] MEDS: Heparin Injection (Vial) 5,000 UNIT/ML VIAL 5000 UNIT SC (09:52)
[2018-09-16] MEDS: Tamsulosin HCl 0.4 MG Capsule PO (09:52)
[2018-09-16] MEDS: Metoprolol Tartrate 50 MG Tablet PO (09:52)
[2018-09-16] MEDS: guaiFENesin 600 MG Tablet PO (09:52)
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
--- NOTE | 2018-09-16 13:00 | CASEMGMT ---
Social Work Note Per physician, pt is discharging today. JUAN received call from Eloisa in TCU stating that pt is on dialysis and TCU is unable to accept due to pt being on dialysis. JUAN in to update pt of this and pt's present in room. Pt's states she would like a referral sent to [facility] now. JUAN placed a call to Amarilis at [facility]. Per Amarilis she is able to accept dialysis patients. JUAN faxed referral to Amarilis. JUAN spoke with Amarilis at [facility] and she is able to accept pt. Amarilis would like to know chair times for pt for dialysis so she is able to set up transportation times for pt. JUAN in to ask pt's about chair times. Pt's unsure of chair times and gave this worker permission to call [facility] for chair times. JUAN placed a call to [facility] and spoke with Allan. Allan states pt's chair times are 7:10am. JUAN updated Amarilis at [facility] of Chair time. JUAN faxed completed discharge paperwork to Amarilis at [facility] including transfer to extended care facility, signed medication list and any scripts. [facility]inals in SNF folder and copy on pt's chart. [facility] set up transportation. [facility] completed in [facility]. Originals in SNF folder and copy on pt's chart. Plan: Pt to discharge to [facility] today. [facility] set up transportation for 2:15pm. Reba Alcantara [employer] SUPERVISOR, DOBBY [employer] CH[employer] PEGGER
--- NOTE | 2018-09-16 13:47 | NURSING ---
[facility], report given to nurse whom will be taking over care for this patient
[2018-09-16 13:54] VITALS: BP 102/68; PULSE 68; RESP 16; TEMP 37.1; O2SAT 96
[2018-09-17 11:24] LABS: Hepatitis Be Ag Negative (Negative)
== END 2018-09-16 14:20 | disposition skilled nursing facility (03) | DRG 202 ==
LOC: ED 23:22 → MS3 23:33
PROVIDERS: Internal Medicine; Internal Medicine Nephrology; Admitting Provider Family Medicine; Emergency Provider Emergency Medicine; Family Provider Internal Medicine; PCP Internal Medicine
DX: J20.8 Acute bronchitis due to other specified organisms (principal); N18.6 End stage renal disease; I12.0 Hypertensive chronic kidney disease with stage 5 chronic kidney disease or end stage renal disease; E87.1 Hypo-osmolality and hyponatremia; R53.81 Other malaise; N40.0 Benign prostatic hyperplasia without lower urinary tract symptoms; Z99.2 Dependence on renal dialysis; Z87.891 Personal history of nicotine dependence; T24.012A Burn of unspecified degree of left thigh, initial encounter; X16.XXXA Contact with hot heating appliances, radiators and pipes, initial encounter; Z86.718 Personal history of other venous thrombosis and embolism; D63.8 Anemia in other chronic diseases classified elsewhere; Z66 Do not resuscitate
CPT/HCPCS: 36415; 71046; 80048; 80053; 81001; 83735; 84484; 85025; 85610; 85730; 86706; 87040; 87350; 87633; 90937; 93005; 97162; 97165; 97530; 97802; 99285; J7030; P9612; A4216; G0257

== ENCOUNTER 2018-11-01 09:06 | Day surgery (SDC) | payer MEDICARE, OTHER, SELFPAY ==
[2018-11-01 09:33] LABS: Hematocrit 33.8 % (40-54); Hemoglobin 10.8 g/dl (13.0-16.5); Mean Corpuscular Hgb 29.8 pg (27.0-32.0); Mean Corpuscular Volume 93.4 fL (80-94); Mean Platelet Vol. 8.3 fl (6.2-12.0); Platelet Count 111 K/mm3 (150-450); RBC Distribution Width CV 16.1 % (11.6-14.6); RBC Distribution Width SD 55.3 fl (35.1-43.9); Red Blood Count 3.62 M/mm3 (4.6-6.2); White Blood Count 4.4 K/mm3 (4.4-11.0)
[2018-11-01 09:35] LABS: Scan Indicated on CBC? Y/N NO
[2018-11-01 09:44] LABS: Anion Gap 10 (5-15); BUN 67 mg/dL (7-18); BUN/Creat Ratio 9.9 RATIO (10-20); Calcium,Total 10.7 mg/dL (8.5-10.1); Chloride 104 mmol/L (98-107); Creatinine, Serum 6.75 mg/dL (0.70-1.30); EST Glomerular Filtration Rate 8 mL/min (>60); Est Glom Filt Rate - Afr Amer 10 mL/min (>60); Glucose 98 mg/dL (74-106); Potassium 4.9 mmol/L (3.5-5.1); Sodium Level 137 mmol/L (136-145)
--- NOTE | 2018-11-01 12:52 | OP.PCM_ITS ---
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 78-year-old gent was taken to the procedure room placed on the table. The left upper extremity was sterilely prepped draped. Ultrasound was used to identify the cephalic vein closer to the antecubital space antegrade with flow. 2% lidocaine was instilled. Micropuncture needle inserted. Micropuncture wire inserted. 6 Upper Sorbian short sheath was inserted. Using Isovue 50 g taken of the left upper arm with reflux view and chest area. This demonstrates widely patent arterial venous inflow. There is evidence of 2 Viabahn stent grafts with evidence of in stent stenosis at the more proximal end of the proximal stent based upon fistula flow. There is evidence of high-grade stenosis of the left cephalic arch with seeming acute complete occlusion. There is also 70% stenosis of the left subclavian vein. The patient received 5000 units of heparin. A 8 x 4 conquest balloon was inserted and all 3 areas were treated with balloon angioplasty up to 30 phil of pressure. The balloon was held for 2-3 minutes in each area was treated more than once. At the conclusion final fistulogram now demonstrates resolution of all areas of stenosis. There was return of a thrill and bruit. The sheath was removed U suture of 4-0 nylon was placed hemostasis was intact. Images demonstrate a left upper arm brachiocephalic arteriovenous fistula. There is evidence of 70% stenosis of the left subclavian vein. High-grade complete occlusion of the left cephalic arch. 50% in-stent stenosis of the more proximal of the 2 stent grafts based upon fistula flow. Subsequent to the angioplasty there is complete resolution. Successful treatment left upper extremity with salvage left upper extremity AV fistula Etienne Aguayo M.D., F.A.C.S. Type of Anesthesia:: Local
--- OUTSIDE RECORDS SUMMARY | 2019-02-02 20:41 | XMS RPT_ITS ---
:1940 Author Organization OHIP Support Name Relationship Address Phone Phyllis Olivas Unavailable [address] [place] [address] R Unavailable Unavailable Unavailable Hernan Olivasothy Unavailable [address] + [address] [place] [address] R Unavailable Unavailable Unavailable Hernan Olivasothy Unavailable [address] [place] [address] R Unavailable Unavailable Unavailable Hernan Olivasothy Unavailable [address] [place] [address] R Unavailable Unavailable Unavailable Hernan Olivasothy Unavailable [address] + [address] [place] [address] R Unavailable Unavailable Unavailable Hernan Olivasothy Unavailable [address] + [address] [place] [address] R Unavailable Unavailable Unavailable Brendon, Phyllis Unavailable [address] + [address] [place] [address] R Unavailable Unavailable Unavailable Hernan Olivasothy Unavailable [address] + [address] [place] [address] R Unavailable Unavailable Unavailable Brendon Phyllis Unavailable [address] + [address] [place] [address] R Unavailable Unavailable Unavailable BRENDON, PHYLLIS Unavailable [address] + [address] [place] [address] R Unavailable Unavailable Unavailable BRENDON, PHYLLIS Unavailable [address] + [address] [place] [address] R Unavailable Unavailable Unavailable BRENDON, PHYLLIS Unavailable [address] [place] [address] R Unavailable Unavailable Unavailable BRENDON, PHYLLIS Unavailable [address] [place] [address] R Unavailable Unavailable Unavailable BRENDON, PHYLLIS Unavailable [address] + [address] [place] [address] R Unavailable Unavailable Unavailable BRENDON, PHYLLIS Unavailable [address] + [address] [place] [address] R Unavailable Unavailable Unavailable BRENDON, PHYLLIS Unavailable [address] + [address] [place] [address] R Unavailable Unavailable Unavailable BRENDON, PHYLLIS Unavailable [address] + [address] [place] [address] R Unavailable Unavailable Unavailable BRENDON, PHYLLIS Unavailable [address] [place] [address] R Unavailable Unavailable Unavailable BRENDON, PHYLLIS Unavailable [address] [place] [address] R Unavailable Unavailable Unavailable BRENDON, PHYLLIS Unavailable [address] [place] [address] R Unavailable Unavailable Unavailable BRENDON, PHYLLIS Unavailable [address] [place] [address] R Unavailable Unavailable Unavailable BRENDON, PHYLLIS Unavailable [address] [place] [address] R Unavailable Unavailable Unavailable BRENDON, PHYLLIS Unavailable [address] [place] [address] R Unavailable Unavailable Unavailable BRENDON, PHYLLIS Unavailable [address] [place] [address] R Unavailable Unavailable Unavailable BRENDON, PHYLLIS Unavailable [address] + [address] [place] [address] R Unavailable Unavailable Unavailable BRENDON, PHYLLIS Unavailable [address] [place] [address] R Unavailable Unavailable Unavailable BRENDON, PHYLLIS Unavailable [address] [place] [address] R Unavailable Unavailable Unavailable BRENDON, PHYLLIS Unavailable [address] [place] [address] R Unavailable Unavailable Unavailable BRENDONHERNANPHYLLIS Unavailable [address] [place] [address] R Unavailable Unavailable Unavailable BRENDONHERNANPHYLLIS Unavailable [address] [place] [address] R Unavailable Unavailable Unavailable PHYLLIS OLIVAS Unavailable [address] [place] [address] R Unavailable Unavailable Unavailable BRENDONPHYLLIS Unavailable [address] [place] [address] R Unavailable Unavailable Unavailable PHYLLIS OLIVAS Unavailable [address] [place] [address] R Unavailable Unavailable Unavailable PHYLLIS OLIVAS Unavailable [address] [place] [address] R Unavailable Unavailable Unavailable Care Team Providers Name Role Phone MARY HOWARD Attending Unavailable TESTMARY SANTACRUZ Referring Unavailable ZAMUDIOSONYA (GIS PHYSICAL SCIENTIST) Attending Unavailable ZAMUDIO, SONYA (GIS PHYSICAL SCIENTIST) Referring Unavailable TALAMPAS, YESENIA D Referring Unavailable MANSOOR PRASAD (PA) Attending Unavailable ZAMUDIOMANUELAI (GIS PHYSICAL SCIENTIST) Referring Unavailable ZAMUDIO, SONYA (GIS PHYSICAL SCIENTIST) Referring Unavailable DAVINA ADAMES (TUNNEL HEADING INSPECTOR) Attending Unavailable TALAMPAS, YESENIA D Attending Unavailable MARY HOWARD Attending Unavailable TESTRAMARY BEAR Referring Unavailable TALAMPAS, YESENIA D Attending Unavailable MARY HOWARD Attending Unavailable MARISA OLIVEIRA (TUNNEL HEADING INSPECTOR) Attending Unavailable TALAMPAS, YESENIA D Referring Unavailable Paulette Jones PA-C Attending Unavailable Etienne Aguayo Attending Unavailable Olivier Etienne Referring Unavailable Talampas, Yesenia Primary Care Unavailable Talampas, Yesenia Primary Care Unavailable Chelo Vásquez Attending Unavailable Aleks Moore Attending Unavailable Aleks Moore Referring Unavailable Talampas, Yesenia Primary Care Unavailable Etienne Aguayo Attending Unavailable Olivier Etienne Referring Unavailable Talampas, Yesenia Primary Care Unavailable Etienne Aguayo Consulting Unavailable Eduar Cabrera Attending Unavailable Rick, Jayaprakash Referring Unavailable Talampas, Yesenia Primary Care Unavailable Etienne Aguayo Attending Unavailable Talampas, Yesenia Referring Unavailable Paulette Jones PA-C Attending Unavailable Talampas, Yesenia Referring Unavailable Talampas, Yesenia Primary Care Unavailable Aleks Moore Attending Unavailable Talampas, Yesenia Primary Care Unavailable Aleks Moore Referring Unavailable Roxana Rankin Attending Unavailable MassielRoxana Referring Unavailable Talampas, Yesenia Primary Care Unavailable Talampas, Yesenia Primary Care Unavailable Barry, Artur Admitting Unavailable Radha, Ying S. Consulting Unavailable Javad Vivas Attending Unavailable Barry, Artur Admitting Unavailable Barry, Artur Attending Unavailable Talampas, Yesenia Primary Care Unavailable Barry, Artur Consulting Unavailable Barry, Artur Admitting Unavailable Javad Vivas Attending Unavailable Talampas, Yesenia Primary Care Unavailable Radha, Ying S. Consulting Unavailable Terdewayne Javad Consulting Unavailable Talampas, Yesenia Primary Care Unavailable Tamara Carlton Attending Unavailable Etienne Aguayo Attending Unavailable Aleks Moore Attending Unavailable TeresaAleks Referring Unavailable Talampas, Yesenia Primary Care Unavailable Tanphaichitr, Natthavat Consulting Unavailable TeresaAleks Admitting Unavailable Talampas, Yesenia Primary Care Unavailable Barry, Artur Admitting Unavailable Barry, Artur Referring Unavailable Rick, Jayaprakash Consulting Unavailable Soledad Page Attending Unavailable TeresaAleksCyrus Consulting Unavailable Robotham, Brooke Consulting Unavailable Barry, Artur Admitting Unavailable Barry, Artur Attending Unavailable Barry, Artur Referring Unavailable Talampas, Yesenia Primary Care Unavailable Rick, Jayaprakash Consulting Unavailable Barry, Artur Consulting Unavailable Barry, Artur Admitting Unavailable Soledad Page Attending Unavailable Barry, Artur Referring Unavailable Talampas, Yesenia Primary Care Unavailable Rick, Jayaprakash Consulting Unavailable Teresa, Cyrus Consulting Unavailable Robotham, Brooke Consulting Unavailable WhiteSoledad Consulting Unavailable Barry, Artur Admitting Unavailable Robotham, Brooke Attending Unavailable Barry, Artur Referring Unavailable Talampas, Yesenia Primary Care Unavailable Rick, Jayaprakash Consulting Unavailable Teresa, Cyrus Consulting Unavailable Robotham, Brooke Consulting Unavailable White, Soledad Consulting Unavailable Barry, Artur Admitting Unavailable Robotham, Brooke Attending Unavailable Barry, Artur Referring Unavailable Talampas, Yesenia Primary Care Unavailable Rick, Jayaprakash Consulting Unavailable Teresa, Cyrus Consulting Unavailable Robotham, Brooke Consulting Unavailable White, Soledad Consulting Unavailable Barry, Artur Admitting Unavailable White, Soledad Attending Unavailable Barry, Artur Referring Unavailable Talampas, Yesenia Primary Care Unavailable Rick, Jayaprakash Consulting Unavailable Teresa, Cyrus Consulting Unavailable Robotham, Brooke Consulting Unavailable White, Soledad Consulting Unavailable Williams Louis Attending Unavailable White, Soledad Referring Unavailable Talampas, Yesenia Primary Care Unavailable White, Soledad Admitting Unavailable Bakhous, Aziz Consulting Unavailable Jopperi, Fausto Attending Unavailable White, Soledad Admitting Unavailable White, Soledad Attending Unavailable Talampas, Yesenia Primary Care Unavailable White, Soledad Consulting Unavailable White, Soledad Admitting Unavailable Jopperi, Fausto Attending Unavailable Talampas, Yesenia Primary Care Unavailable Bakhous, Aziz Consulting Unavailable Jopperi, Fausto Consulting Unavailable White, Soledad Admitting Unavailable Jopperi, Fausto Attending Unavailable Talampas, Yesenia Primary Care Unavailable Bakhous, Aziz Consulting Unavailable Jopperi, Fausto Consulting Unavailable White, Soledad Admitting Unavailable Jopperi, Fausto Attending Unavailable Talampas, Yesenia Primary Care Unavailable Bakhous, Aziz Consulting Unavailable Jopperi, Fausto Consulting Unavailable White, Soledad Admitting Unavailable Jopperi, Fausto Attending Unavailable Talampas, Yesenia Primary Care Unavailable Bakhous, Aziz Consulting Unavailable Jopperi, Fausto Consulting Unavailable Amador, Williams Attending Unavailable Amador, Williams Attending Unavailable English, Williams Attending Unavailable Williams English Attending Unavailable Amador, Williams Attending Unavailable PROBLEMS PROBLEMS DATE TYPE CONDITION / CODE ATTENDING STATUS SOURCE 11/25/2018 Unknown T82.898A - Other Robert BAUMANN, Active [place] specified [facility] complication of Hospital vascular prosthetic Repository devices, implants and grafts, initial encounter / T82.898A(ICD-10) 09/16/2018 Unknown G89.29 - Other Fausto Diaz Active [place] chronic pain / Community G89.29(ICD-10) Hospital Repository 07/15/2018 Active 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 [facility] (current[facility] Main therapy / [place] Z79.899(ICD-10) Repository 07/15/2018 Active Urgency of urination NA Active [facility] / R39.15(ICD-10) Clinic Main [place] Repository 07/15/2018 Active Other symptoms and NA Active [place] signs involving the [facility] Main genitourinary system [place] / R39.89(ICD-10) Repository 07/15/2018 Active Iron deficiency NA Active [place] anemia, unspecified [facility] Main / D50.9(ICD-10) [place] Repository 03/31/2018 Unknown R82.9 - Other and Roxana Rankin Active [place] unspecified abnormal [facility] findings in urine / Hospital R82.9(ICD-10) Repository 03/18/2018 Unknown N47.1 - Phimosis / Teresa, Aleks Active [place] N47.1(ICD-10) [facility] Repository 01/21/2018 Active retirement (current) NA Active [place] use of [facility] Main anticoagulants / [place] Z79.01(ICD-10) Repository 01/14/2018 Active Frequency of NA Active [facility] micturition / [facility] Main R35.0(ICD-10) [place] Repository 01/07/2018 Active Unknown / [place], Active [facility] UNK(Unknown) [facility] [place] Repository PROCEDURES PROCEDURES No Procedure Records FoundRESULTS RESULTS OBSOLETE Observed: 12/07/2018 Status: COMPLETED Source: [place] 12:00 AM [facility] REPOSITORY Refill (INTMWS) ANSLEY OLIVAS ([id number]) 1940 M Date Time Provider Department 12/07/18 YESENIA CROCKER IN[facility]reedomWS During your visit today, we recorded the following information about you: Sunshine Gianni Psr 12/07/2018 9:49 AM Signed Patient has been identified by name and date of : Yes Pending Prescriptions Disp Refills METOPROLOL TARTRATE 50 MG TABLET 180 tablet 3 Sig: Take 1 tablet by mouth twice daily. ESCOBAR: No RX INSTRUCTIONS: Patient aware RX will be sent to pharmacy. No need to notify patient. Sunshine Cruzrusselsg Psr Mindi Lind LPN 12/07/2018 9:52 AM Signed Patient has been identified by name and date of : Yes Patient phones for refill(s): Pending Prescriptions Disp Refills METOPROLOL TARTRATE 50 MG TABLET 180 tablet 3 Sig: Take 1 tablet by mouth twice daily. ESCOBAR: No Date of last office visit in primary care: 07/15/2018 3 month f/u scheduled w/PCP: 12/14/2018 Mindi Lind LPN Allergies As of Date: 12/07/2018 Noted Allergy Reaction BETA BLOCKERS (BETA-BLOCKERS (BET*10/04/2010 14 - Other: See Comments Comments: Severe fatigue SULFA (SULFONAMIDE ANTIBIOTICS) 08/14/2005 4 - Hives Date Reviewed: 07/06/2018 Reviewed by: Aurea Cheung Ma - Fully Assessed Reason for Visit: Refill Request [94] Order(s):metoprolol tartrate, short acting, (LOPRESSOR) 50 mg tabletTake 1 tablet by mouth twice daily.Disp: 180 tabletRfl: 3 Prescriptions as of 12/07/2018 Sig: METOPROLOL TARTRATE 50 MG TAB* Take 1 tablet by mouth twice * SEVELAMER CARBONATE 800 MG TA* Take 800 mg by mouth three ti* MIDODRINE 10 MG TABLET Take 10 mg by mouth three faustina* FERROUS SULFATE 325 MG (65 MG* Take 325 mg by mouth twice da* ONDANSETRON 4 MG DISINTEGRATI* Take 1 tablet by mouth every * OXYCODONE 5 MG TABLET Take 1 tablet by mouth every * AMLODIPINE 5 MG TABLET DAILY SENNOSIDES 8.6 MG-DOCUSATE SO* Take 1 tablet by mouth once d* TAMSULOSIN 0.4 MG CAPSULE Take 2 capsules by mouth once* AMMONIUM LACTATE-SODIUM LACTA* Apply 1 application to affect* COMPOUNDED PRESCRIPTION Front wheeled walked with sea* [id number]* Gargle 5ml and swallow every * * COMPOUNDED PRESCRIPTION Home BP cuff, Dx: HTN labile Problem List As Of Date 12/07/2018 Noted Resolved Class 1 obesity due to excess calories with ser* Essential hypertension [I10] 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] INVALID FOR* HERPES ZOSTER NOS [B02.9] INVALID FOR* DYSMETABOLIC SYNDROME X [E88.81] ANEMIA NOS [D64.9] Mohs for BCC, left cheek 02-03-08 [173.8] INVALID FOR* ACTINIC KERATOSES (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 Complication of dialysis access insertion (HCC)*INVALID FOR* Acute deep vein thrombosis (DVT) of both upper *INVALID FOR*06/10/2018 ESRD on hemodialysis (HCC) [N18.6, Z99.2] INVALID FOR* More... Weakness [R53.1] INVALID FOR* More... BPH with obstruction/lower urinary tract sympto*INVALID FOR* More... 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 Gait instability [R26.81] INVALID FOR* Prescriptions ordered this encounter Disp Refills Start End METOPROLOL TARTRATE 50 MG TABLET 180 * 3 12/07/2018 Route: ORAL Sig: Take 1 tablet by mouth twice daily. Medications Discontinued During This Encounter metoprolol tartrate, short acting, (* 180 * 3 10/13/2017 12/07/2018 Route: ORAL Sig: Take 1 tablet by mouth twice daily. Disc: Reason for discontinue is not on file. Encounter Status:Closed by SONYA CHAMPAGNE on 12/07/18 PROGRESS Observed: 11/04/2018 Status: COMPLETED Source: [place] 12:41 PM [facility] [place] REPOSITORY HNO ID: [id number] Author: Magali Gomez Service: (none) Author Type: Registered Nurse Type: Progress Notes Filed: 11/12/2018 10:24 AM Note Text: PRIMARY CARE COORDINATION FOLLOW-UP NOTE Provider Action/FYI: Will review med list upon receipt. Patient identified by name and date of . YES Spoke to spouse Summary: thinks pt is missing Rx but doesn't have med list nor name of med. I called [facility] PT to see if they have obtained a list, but pt has declined them coming, including today. I just saw his 2 hrs ago and she was excited to have them come to help strengthen pt. but when the PTist got there, they declined. Concerns: I don't think Ansley is amenable to have home PT, unfortunately. His has enabled him for many yrs and he is used to relying on her for everything. I called [facility] to get a D/C med list from them so we bottle washer machine compare to our med list to see if there is indeed a med missing from the list. 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 Signature Magali Gomez RN Ambulatory [facility] Internal Medicine [facility] November 04, 2018 CNPTOUTREACH Observed: 11/04/2018 Status: COMPLETED Source: [place] 12:00 AM [facility] REPOSITORY Patient Outreach (INTMWS) ANSLEY OLIVAS ([id number]) 1940 M Date Time Provider Department 11/04/18 MAGALI PHILLIPS During your visit today, we recorded the following information about you: Magali Velasquez RN 11/12/2018 10:24 AM Signed PRIMARY CARE COORDINATION FOLLOW-UP NOTE Provider Action/FYI: Will review med list upon receipt. Patient identified by name and date of . YES Spoke to spouse Summary: thinks pt is missing Rx but doesn't have med list nor name of med. I called [facility] PT to see if they have obtained a list, but pt has declined them coming, including today. I just saw his 2 hrs ago and she was excited to have them come to help strengthen pt. but when the PTist got there, they declined. Concerns: I don't think Ans[place] is amenable to have home PT, unfortunately. His has enabled him for many yrs and he is used to relying on her for everything. I called [facility] to get a D/C med list from them so we bottle washer machine compare to our med list to see if there is indeed a med missing from the list. 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 Signature Magali Gomez RN Ambulatory [facility] Internal Medicine [facility] November 04, 2018 Allergies As of Date: 11/04/2018 Noted Allergy Reaction BETA BLOCKERS (BETA-BLOCKERS (BET*10/04/2010 14 - Other: See Comments Comments: Severe fatigue SULFA (SULFONAMIDE ANTIBIOTICS) 08/14/2005 4 - Hives Date Reviewed: 07/06/2018 Reviewed by: Aurea Cheung Ma - Fully Assessed Reason for Visit: Retanner Chronic Care [3619] Prescriptions as of 11/04/2018 Sig: AMLODIPINE 5 MG TABLET DAILY AMMONIUM LACTATE-SODIUM LACTA* Apply 1 application to affect* * COMPOUNDED PRESCRIPTION Home BP cuff, Dx: HTN labile COMPOUNDED PRESCRIPTION Front wheeled walked with sea* [id number]* Gargle 5ml and swallow every * FERROUS SULFATE 325 MG (65 MG* Take 325 mg by mouth twice da* METOPROLOL TARTRATE 50 MG TAB* Take 1 tablet by mouth twice * MIDODRINE 10 MG TABLET Take 10 mg by mouth three faustina* ONDANSETRON 4 MG DISINTEGRATI* Take 1 tablet by mouth every * OXYCODONE 5 MG TABLET Take 1 tablet by mouth every * SENNOSIDES 8.6 MG-DOCUSATE SO* Take 1 tablet by mouth once d* SEVELAMER CARBONATE 800 MG TA* Take 800 mg by mouth three ti* TAMSULOSIN 0.4 MG CAPSULE Take 2 capsules by mouth once* Problem List As Of Date 11/04/2018 Noted Resolved Class 1 obesity due to excess calories with ser* Essential hypertension [I10] 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] INVALID FOR* HERPES ZOSTER NOS [B02.9] INVALID FOR* DYSMETABOLIC SYNDROME X [E88.81] ANEMIA NOS [D64.9] Mohs for BCC, left cheek 308 [173.8] INVALID FOR* ACTINIC KERATOSES (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 Complication of dialysis access insertion (HCC)*INVALID FOR* Acute deep vein thrombosis (DVT) of both upper *INVALID FOR*06/10/2018 ESRD on hemodialysis (HCC) [N18.6, Z99.2] INVALID FOR* More... Weakness [R53.1] INVALID FOR* More... BPH with obstruction/lower urinary tract sympto*INVALID FOR* More... 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 Gait instability [R26.81] INVALID FOR* Encounter Status:Closed by MAGALI GOMEZ on 11/12/18 POTASSIUM Collected: 11/03/2018 Status: F Source: [place] 7:[address] [facility] REPOSITORY Order Comment: PER ORDER CALL STAT RESULTS TO [id number] TYPE CODE TESTS RESULT OUT OF RANGE REFERENCE UNITS LAB L501.5600 3.5-5.1 mmol/L Normal K 4.2 Result Comment: Result(s) Called at: 08:35:45 11/03/2018 by: Roseann Figueroa to Shania Performed By: #### [id number] #### [facility] [address] [place], [address] OPERATIVE REPORT Observed: 11/01/2018 Status: F Source: [place] 12:[address] [facility] REPOSITORY [facility] Medical Records Department [address] [place] [address] Operative Report 11/01/18 1248 MR#: [id number] Acct: [id number] Name: ANSLEY OLIVAS Rep #: [id number] : 1940 78 From: Etienne Aguayo MD PCP: Yesenia Crocker MD Status: [facility] Location: [facility] 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 78-year-old gent was taken to the procedure room placed on the table. The left upper extremity was sterilely prepped draped. Ultrasound was used to identify the cephalic vein closer to the antecubital space antegrade with flow. 2% lidocaine was instilled. Micropuncture needle inserted. Micropuncture wire inserted. 6 Ethiopian short sheath was inserted. Using Isovue 50 g taken of the left upper arm with reflux view and chest area. This demonstrates widely patent arterial venous inflow. There is evidence of 2 Viabahn stent grafts with evidence of in stent stenosis at the more proximal end of the proximal stent based upon fistula flow. There is evidence of high-grade stenosis of the left cephalic arch with seeming acute complete occlusion. There is also 70% stenosis of the left subclavian vein. The patient received 5000 units of heparin. A 8 x 4 conquest balloon was inserted and all 3 areas were treated with balloon angioplasty up to 30 phil of pressure. The balloon was held for 2-3 minutes in each area was treated more than once. At the conclusion final fistulogram now demonstrates resolution of all areas of stenosis. There was return of a thrill and bruit. The sheath was removed U suture of 4-0 nylon was placed hemostasis was intact. Images demonstrate a left upper arm brachiocephalic arteriovenous fistula. There is evidence of 70% stenosis of the left subclavian vein. High-grade complete occlusion of the left cephalic arch. 50% in-stent stenosis of the more proximal of the 2 stent grafts based upon fistula flow. Subsequent to the angioplasty there is complete resolution. Successful treatment left upper extremity with salvage left upper extremity AV fistula Etienne Aguayo M.D., F.A.C.S. Type of Anesthesia:: Local 11/01/18 1252 <Electronically signed by Etienne Aguayo MD> Date Etienne Aguayo MD CC: Yesenia Crocker MD; Etienne Aguayo MD Signed SURGERY VISIT REPORT Observed: 11/01/2018 Status: F Source: [place] 9:46 AM [facility] [address] [place] [address]. [address] [place] [address] OFFICE VISIT Date of Service: 11/01/18 MR#: [id number] Acct: [id number] Name: ANSLEY OLIVAS Rep #: [id number] : 1940 Provider: Paulette Jones PA-C Age/Sex: 78/M Location: [facility] Status: Signed Intake Vital Signs11/01/18 Blood Pressure 134/70 H Intake Visit Reasons: difficulty cannulating Chief Complaint: difficulty cannulating fistula Director Of Admissions Required: No Is patient in pain?: No Allergies Sulfa (Sulfonamide Antibiotics) Allergy (Severe, Verified 11/01/18 08:31) Hives Medications Sennosides/Docusate Sodium [Docusate Sodium-Senna Tablet] 1 ea PO PRN PRN 08/07/16 [History Confirmed 11/01/18] Tamsulosin HCl [Flomax] 0.4 mg PO BID 10/23/16 [History Confirmed 11/01/18] Metoprolol Tartrate [Lopressor (beta keila)] 50 mg PO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 Illness Date of Admission: 09/12/18 Chief Complaint: Fatigue, weakness, cough The patient is a 78 y/o F w/ PMHx: ESRD on HD, Obesity, HTN, History of DVT, BPH s/p TURP, History of TIA, AOCD/Fe deficiency anemia, GERD, Former Tobacco use who presents to the [facility] ED on 09/12/18 with history of progressively worsening weakness, non-productive cough, dyspnea worse with exertion recently with onset fever. notes he very suddenly starting today also lost his appetite and has had poor oral intake. In the ED work-up included T 100.3, heart rate 72, BP 118/62, respiratory rate 28, 93% on room air, CBC with WBC 7.1, heme globin 12, platelet 102 without market shift, coags with PT 15, INR 1.2, PTT 32, CMP with sodium 133, chloride 95, BUN/creatinine 37/5.14, glucose 119, calcium 10.7, troponin <0.015, CXR with chronic interstitial changes, Bld Cx x 2 obtained per ED, EKG w/ SR without acute evidence of ischemia. ED UA straight catheterization pending per discussion ED. 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) Morbid obesity (Chronic) E66.01 Benign prostatic hypertrophy (Chronic) N40.0 Hypertension (Chronic) I10 Nephrotic syndrome (Chronic) N04.9 Allergies Sulfa (Sulfonamide Antibiotics) Allergy (Severe, Verified 09/12/18 21:01) Hives Home Medications: Ambulatory Orders Medication Instructions Recorded Sennosides/Docusate Sodium 1 ea PO PRN PRN 08/07/16 [Docusate Sodium-Senna Tablet] Tamsulosin HCl [Flomax] 0.4 mg PO BID 10/23/16 Metoprolol Tartrate [Lopressor 50 mg PO BID tab 11/03/16 Surgical History: Surgical History (Last Updated 02/23/18 @ 15:41 by Kati Dorsey) Presence of surgically created arteriovenous shunt for hemodialysis Z99.2 LUE Surgical History: - - Bowel resection secondary to bowel obstruction w/ ventral hernia repair, AVF, R TKR, TURP. Psychiatric History: No pertinent psych hx Lives: Spouse/ Significant Other Smoking Status: Former smoker - Quit 1980. Tobacco Use: Non-smoker Alcohol: None Drugs: None - *Family History Maternal History Items: - - Patient denies any marked maternal or paternal family history including HD, DM, CA. Paternal History Items: - - Patient denies any marked maternal or paternal family history including HD, DM, CA. Review of Systems Constitutional: Reports: Anorexia, Chills, Fever, Malaise, Weakness, Fatigue. Denies: Weight Change HEENT: Denies: Head Aches, Sinus Congestion, Sinus Drainage Cardiovascular: Denies: Chest Pain, Palpitations Respiratory: Reports: Cough, Shortness of breath upon exertion. Denies: Shortness of breath at rest, Sputum production Gastrointestinal: Denies: Abdominal Pain, Nausea, Vomiting Genitourinary: Denies: Dysuria Musculoskeletal: Reports: Joint Pain. Denies: Joint Tenderness Skin: Denies: Rash, Wounds Neurological: Reports: Balance problems. Denies: Focal weakness, Numbness, Tingling Psychiatric: Denies: Anxiety, Depression, Homicidal Ideations, Suicidal Ideations Hematologic/ Lymphatic: Reports: Anemia, Easy Bruising, Easy Bleeding VTE Information - Inpt Only VTE Present on Admission: No VTE Mechan Device Prophylaxis: SCD's VTE Pharm Prophylaxis ordered?: Yes Patient Problems: Active and Suspected Problems Acute viral bronchitis (Acute) Subjective: Seated upright in the ED bed, fatigued appearance. Objective: Physical Examination: General: awake, alert, oriented x 3 and cooperative, seated upright in the ED bed in no apparent distress, fatigued appearing. Skin: normal color, turgor, no icterus, cyanosis except occasional abrasion, scab to extremities. HEENT: AT/NC, EOMI, PERRLA, dry MM, no carotid bruits or JVD noted. Lungs: Diminished BS, > BL bases, poor effort, coughing w/ increased effort attempts, no rales, ronchi or wheezing. Heart: Regular rate and rhythm; no gallop, rub audible. Abdomen: soft, obese, NTTP, ND, normal BS, no HSM; however, habitus makes examination difficult. Extremities: no cyanosis, clubbing, or edema, AVF. Neurological: patient awake, alert, oriented x 3; cognitive function intact; pupils equally reactive to light and accomodation; cranial nerves II-XII grossly normal, moving all 4 extremities, no focal deficits, strength severely globally decreased secondary to acute presentation. Psychiatric: affect appears fatigued, flat, no acute evidence of depressive or anxiety feelings. - Physical Exam Vital Signs Temp Pulse Resp BP Pulse Ox 100.3 F H 72 28 H 118/62 93 09/12/18 21:02 09/12/18 21:02 09/12/18 21:02 09/12/18 21:02 09/12/18 21:02 Oxygen Delivery Method Room Air Weight: 195 lb 12.328 oz Body Mass Index (BMI) 34.7 Finger Stick Blood Glucose 116 Laboratory Tests Past 24 Hrs Assessment/Plan All Active Problems Acute viral bronchitis (Acute) Generalized weakness (Acute) Transient expressive aphasia (Resolved) Near syncope (Acute) Hypotension (Acute) The patient is a 78 y/o F w/ PMHx: ESRD on HD, Obesity, HTN, History of DVT, BPH s/p TURP, History of TIA, AOCD/Fe deficiency anemia, GERD, Former Tobacco use who presents to the [facility] ED on 09/12/18 with history of progressively worsening weakness, non-productive cough, dyspnea worse with exertion recently with onset fever. (1) Suspected Acute Viral Bronchitis w/ associated weakness, debility: ED work-up included T 100.3, heart rate 72, BP 118/62, respiratory rate 28, 93% on room air, CBC with WBC 7.1, heme globin 12, platelet 102 without market shift, coags with PT 15, INR 1.2, PTT 32, CMP with sodium 133, chloride 95, BUN/creatinine 37/5.14, glucose 119, calcium 10.7, troponin <0.015, CXR with chronic interstitial changes. UA pending upon admission. Will admit to MS, maintain on oxygen with wean as tolerated to room air, will need oxygenation assessment prior to discharge given current presentation, continue ATC duonebs, PRN albuterol, HOB, IS parameters, obtain respiratory viral panel, obtain sputum Cx, gently hydrate given ESRD status and consider repeat CXR PA and Lateral in AM. PT, OT, CM for discharge planning. (2) Hypertension: Continue home regimen including metoprolol w/ hold parameters, PRN hydralazine. (2) ESRD: HD normally outpatient at the [facility] hemodialysis [place] on MWF, following w/ Dr. Rodgers/Rick who have been consulted, repeat BMP in AM. (3) AOCD/Fe deficiency anemia: Admission Hgb 12, baseline 8-10 range, stable. (4) Orthostasis, Chronic: Following HD notably, will continue home regimen midodrine w/ HD. (5) BPH: s/p TURP, will continue home flomax regimen. (6) History of DVT: Maintain on chemoprophylaxis as noted. (7) GERD: PPI. (8) DVT prophylaxis: SCDs, heparin. (9) CODE status: remains HCPOA and living will is in place. Discussed CODE status including difference between FULL code, DNR-CCA and DNR-CC status. Following discussions about the differences in these status, confirmed DNR-CCA, no intubation status. Advanced Care Planning Face to Face Time: 16 minutes. Code Visit OBSV E AND M: 13529 Initial observation care L3 Procedures: 42710 Advncd Care Plan 30 Min 09/12/18 5408 <Electronically signed by Soledad Page > Date Soledad Page Cosigner Signature: Date (if applicable) CC: Soledad Page; Yesenia Crocker MD Signed Observed: 09/13/2018 Status: F Source: [place] RESPIRATORY PANEL 2:[address] [facility] MOLECULAR REPOSITORY RP PANEL ADENOVIRUS Not Detected HUMAN METAPHNEUMO Not Detected INFLUENZA A Not Detected INFLUENZA A (SUBTYPE H1) Not Detected INFLUENZA A (SUBTYPE H3) Not Detected INFLUENZA B Not Detected PARAINFLUENZA 1 Not Detected PARAINFLUENZA 2 Not Detected PARAINFLUENZA 3 Not Detected PARAINFLUENZA 4 Not Detected RHINOVIRUS Not Detected RSV A Not Detected RSV B Not Detected NAAT METHOD Testing was performed using nucleic acid amplification Performed By: #### M100.638 #### [facility] [address] [place], [address] CHEST PA AND LATERAL Observed: 09/13/2018 Status: F Source: [place] 12:[address] [facility] REPOSITORY [facility] Imaging Services [address] [place] [address] Chest PA and Lateral MR#: [id number] Acct: [id number] Name: ANSLEY OLIVAS Rep #: [id number] : 1940 M 78 From: Kamran Castro MD PCP: Yesenia Crocker MD Status: ADM REBEKAH Study: Chest PA and Lateral Date of Exam: 09/13/18 Exam# [id number] Ordering Dr: Soledad Page STUDY: X-RAY CHEST REASON FOR EXAM: Male, 78 years old. Shortness of breath TECHNIQUE: Frontal and lateral views of the chest. COMPARISON: 09/12/2018 FINDINGS: Stent in the left arm. Progressing right midlung and basilar atelectasis. There is no demonstrated pleural abnormality. Normal size heart. Normal mediastinum and marcia. Normal visualized pulmonary arteries. Normal visualized aortic arch and descending thoracic aorta. Normal visualized thoracic spine. Normal visualized ribs, clavicles, and shoulders. There is no demonstrated abnormality of the visualized soft tissue structures of the upper abdomen. RAD/Chest PA and Lateral IMPRESSION: Progressing right midlung and basilar atelectasis. Electronically Signed: Kamran Castro MD at 7:11 EDT Tel , Service support , CC: Soledad Page; Yesenia Crocker MD 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: Signed URINALYSIS, COMPLETE Collected: 09/12/2018 Status: F Source: [place] 11:[address] [facility] REPOSITORY Order Comment: Order Date: 09/12/18 How was Urine Obtained? SPECIAL SERVICES COORDINATOR TO SPECIFY TYPE CODE TESTS RESULT OUT OF RANGE REFERENCE UNITS LAB L400.3000 Yellow COLOR Normal Yellow LAB L400.3050 Clear Normal CLARITY Clear LAB L400.3200 Normal mg/dl High GLUCOSE, UR 250 LAB L400.3300 Negative mg/dL Normal BILIRUBIN URINE Negative LAB L400.3400 Negative mg/dl Normal KETONE UR Negative LAB L400.3465 1.002-1.030 Normal SP.GR. DIPSTX 1.015 LAB L400.3550 5.0 - 8.0 pH UR Normal 8.0 LAB L400.3600 Negative mg/dl High PROT DIPSTX 100 LAB L400.3700 Normal mg/dl Normal UROBILI Normal LAB L400.3750 Negative Normal NITRITE UR Negative LAB L400.3780 Negative /ul High 10 OCCULT BLOOD-UR LAB L400.3800 Negative /ul High LEUK ESTERASE 100 LAB L400.4050 0-5 /hpf WBC Normal 10-25 SEEN LAB L400.4100 0-5 /hpf Normal RBC-UA 0-5 SEEN LAB L400.4150 0-5 /hpf SQUAM 0 Normal EPI SEEN LAB L400.4300 None Seen /hpf 0 Normal BACTERIA SEEN LAB L400.4350 <or=2+ /hpf 0 Normal MUCUS, URINE SEEN Performed By: #### L400.0001 #### [facility] [address] [place], [address] EMERGENCY DEPARTMENT Observed: 09/12/2018 Status: F Source: [place] SUMMARY 11:[address] [facility] REPOSITORY [facility] Medical Records Department [address] [place] [address] Emergency Department Summary 09/12/18 2254 MR#: [id number] Acct: [id number] Name: ANSLEY OLIVAS Mirna Rep #: [id number] : 1940 78 From: Fausto Rivers DO PCP: Yesenia Crocker MD Status: REG ER - ER Visit Summary Date of Service: 09/12/18 Chief Complaint: General weakness History of Present Illness: The patient is a 78 M who presents with weakness that began today. Patient states he is having more difficulty standing after he lays down. Patient states his legs and arms feel weak. Patient states he was having pain in his arms and chest. Patient denies any shortness of breath. Patient admits to a cough but denies any sputum. Patient states he had a subjective fever earlier today. Patient has a history of end-stage renal disease but denies any dysuria or hematuria. Patient states he urinates twice daily. Physical Examination: Vital signs are stable except for mild tachypnea of 28. Patient has a temperature of 100.3 here. Also oximeter is 93% on room air. Oral mucosa is pink and moist. Neck is supple. Trachea is midline. There is no JVD noted. Heart was regular rate and rhythm. Lungs are diminished bilaterally but clear. Abdomen is soft. Bowel sounds are normal. There is no tenderness noted. Extremities are intact. There is no edema noted. Cranial nerves II through XII are intact. There are no focal motor or sensory deficits noted. The remaining physical exam is within normal limits. Test Results: EKG showed normal sinus rhythm with a rate of 65. There are no acute ST or T wave changes noted. CBC, comprehensive metabolic profile, PT with INR, PTT, and troponin were obtained and were essentially within normal limits. BUN and creatinine were elevated at 37 and 5.14 however, these are consistent with prior laboratory values. PA and lateral chest x-ray was obtained. There are chronic changes but no acute infiltrate. Emergency Department Course and Treatment: Patient was placed on oxygen by nasal cannula. Case was discussed with Dr. Page. She will admit the patient for observation. Patient and family understood and were agreeable with the plan. All questions were answered. Disposition: Admit for observation Impression: 1. Generalized weakness This note was generated with AppSpot[employer] dictation software. It may contain incorrect words, spelling, and punctuation that were not noted in review of the chart prior to signing ED Disposition - Plan for ED Patient: Disposition: Acute Care Hospital [facility] Chief Complaint: Weakness Diagnosis: Generalized weakness Referrals: Yesenia Crocker MD [Primary Care Provider] - What to do if you have Problems For any increased pain, shortness of breath, bleeding, nausea or vomiting, chest pain, or any unexpected problems, contact your Primary Care Provider. Call [facility] ([phone]) or report to the closest Emergency Room. Call 911 if necessary. 09/12/18 1649 <Electronically signed by Fausto Rivers DO> Date Fausto Schwiger DO Cosigner Signature (If Indicated): Date CC: Yesenia Corcker MD Observed: 09/12/2018 Status: F Source: [place] CULTURE, BLOOD (WB) 10:[address] [facility] REPOSITORY BC No growth in 5 days. Performed By: #### M200.1000 #### [facility] [address] [place], [address] CBC W/DIFF, AUTOMATED Collected: 09/12/2018 Status: F Source: [place] 10:[address] [facility] REPOSITORY TYPE CODE TESTS RESULT OUT OF RANGE REFERENCE UNITS LAB L100.1000 4.4-11.0 K/mm3 Normal WBC 7.1 LAB L100.1200 4.6-6.2 M/mm3 Low RBC 4.02 LAB L100.1300 13.0-16.5 g/dl Low HGB 12.0 LAB L100.1400 40-54 % Low HCT 37.7 LAB L100.1500 80-94 fL Normal MCV 93.8 LAB L100.1600 27.0-32.0 pg Normal MCH 29.9 LAB L100.1700 32-36 g/gl Low MCHC 31.8 LAB L100.1810 11.6-14.6 % High RDW CV 14.7 LAB L100.1820 35.1-43.9 fl High RDW SD 50.2 LAB L100.1900 150-450 K/mm3 Low PLT 102 LAB L100.2000 6.2-12.0 fl Normal MPV 8.9 LAB L100.2100 47-70 % High NEUT% 72.7 LAB L100.2200 19-41 % Low LY% 14.0 LAB L100.2300 0-10 % High MONO% 12.8 LAB L100.2400 0-5 % Normal EO% 0.3 LAB L100.2500 0-1 % Normal BASO% 0.1 LAB L100.2550 0.0-0.9 % Normal IM GRAN % 0.100 Result Comment: IG% - Immature Granulocytes (promyelocytes, myelocytes and metamyelocytes) > 1% indicates that a LEFT SHIFT is Present. LAB L100.2620 2.0-7.7 X10 3/uL Normal Absolute Neut 5.2 LAB L100.2720 0.83-4.51 X10 3/ul Normal Absolute Lymph 0.99 Performed By: #### L100.0100 #### [facility] [address] [place], [address] PROTHROMBIN TIME W/INR Collected: 09/12/2018 Status: F Source: [place] 10:[address] [facility] REPOSITORY TYPE CODE TESTS RESULT OUT OF RANGE REFERENCE UNITS LAB L300.4150 11.7-14.9 SECONDS High PROTIME 15.0 LAB L300.4200 Normal INR 1.2 Performed By: #### L300.3900, L300.4310 #### [facility] [address] [place], [address] PARTIAL THROMBOPLAST Collected: 09/12/2018 Status: F Source: [facility] 10:[address] [facility] REPOSITORY TYPE CODE TESTS RESULT OUT OF RANGE REFERENCE UNITS LAB L300.4310 24.1-36.2 Seconds Normal PTT 32.0 Performed By: #### L300.3900, L300.4310 #### [facility] [address] [facility] [place], [address] COMPREHENSIVE METABOLIC Collected: 09/12/2018 Status: F Source: [place] PROFIL 10:[address] [facility] REPOSITORY TYPE CODE TESTS RESULT OUT OF RANGE REFERENCE UNITS LAB L501.0100 74-106 mg/dL High GLU 119 Result Comment: Fasting Glucose result from 100 to 125 mg/dL suggests IMPAIRED HOMEOSTASIS per A.D.A. criteria. Please note revised GLUCOSE reference range effective 2017. LAB L501.1000 7-18 mg/dL High BUN 37 LAB L501.1100 0.70-1.30 mg/dL High CREAT,SERUM 5.14 Result Comment: The validity of the calculated GFR AND GFRAA in patients over 70 years has not been determined. Clinical correlation is essential. LAB L501.1110 >60 mL/min Low EST GFR 12 Result Comment: Non- GFR Calc LAB L501.1115 >60 mL/min Low EST GFR - AA 14 Result Comment: GFR Calc LAB L501.1255 ml/min Normal Estimated CRCL 9.38 LAB L501.1300 10-20 RATIO Low BUN/CRE 7.2 LAB L501.1500 6.4-8.2 g/dL Normal T PROT 7.0 LAB L501.1800 3.2-5.0 g/dL Low ALB 2.2 LAB L501.1950 2.2-4.2 g/dL High GLOB 4.8 LAB L501.2000 0.9-2.4 RATIO Low A/G 0.5 LAB L501.2200 8.5-10. mg/dL High 1 CA 10.7 LAB L501.4100 15-37 U/L Normal AST 19 LAB L501.4305 45-117 U/L Normal ALK P 101 LAB L501.4405 16-61 U/L Normal ALT 24 LAB L501.4600 0.20-1. mg/dL Normal 00 T BILI 0.70 LAB L501.5300 136-145 mmol/L Low NA 133 LAB L501.5600 3.5-5.1 mmol/L Normal K 3.6 LAB L501.5900 98-107 mmol/L Low CL 95 LAB L501.6100 21.0-32 mmol/L Normal .0 CO2 27.0 LAB L501.6200 5-15 Normal GAP 11 Performed By: #### L500.4050, L501.4010 #### [facility] [address] [place], [place], [address] TROPONIN-I Collected: 09/12/2018 Status: F Source: [place] 10:[address] [facility] REPOSITORY TYPE CODE TESTS RESULT OUT OF RANGE REFERENCE UNITS LAB L501.4010 <0.045 ng/mL Normal < 0.015 TROPONIN-I Result Comment: TROPONIN-I EXPECTED VALUES <0.045 Negative 0.045 - 0.590 Consistent with Cardiac Damage > OR = 0.600 Critical Value Not every elevated troponin is indicative of VT. These values should be used with clinical judgement in examining the patient's clinical picture for diagnosis. To establish a diagnosis of VT versus myocardial injury, there must be a demonstrated rise and/or fall in the troponin values, in addition to ischemic symptoms, EKG changes, new regional wall motion abnormality, and/or angiographical evidence. PLEASE NOTE: REFERENCE RANGES EDITED 18 Performed By: #### L500.4050, L501.4010 #### [facility] [address] [place], [address] MAGNESIUM Collected: 09/12/2018 Status: F Source: [place] 10:[address] [facility] REPOSITORY TYPE CODE TESTS RESULT OUT OF RANGE REFERENCE UNITS LAB L501.5200 1.6-2.6 mg/dL Normal MG 1.8 Performed By: #### L501.5200 #### [facility] [address] [place], [address] Observed: 09/12/2018 Status: F Source: [place] CULTURE, BLOOD (WB) 10:[address] [facility] REPOSITORY BC No growth in 5 days. Performed By: #### M200.1000 #### [facility] [address] [place], [address] HEP B SURFACE Collected: 09/12/2018 Status: F Source: [place] ANTIBODIES 10:[address] [facility] REPOSITORY TYPE CODE TESTS RESULT OUT OF RANGE REFERENCE UNITS LAB L3100.0528 . Normal Hep B Non Reactive Leah AB Result Comment: Non Reactive: Inconsistent with immunity, less than 10 mIU/mL Reactive: Consistent with immunity, greater than 9.9 mIU/mL Performed at: - [facility] [id number] Rn Nicu: Mohsen Werner PhD, Phone: [phone] Performed By: #### L3100.0528 #### [facility] (refer to report for specific site) refer to report for address and phone number CHEST PA AND LATERAL Observed: 09/12/2018 Status: F Source: [place] 9:[address] [facility] REPOSITORY [facility] Imaging Services [address] [place] [address] Chest PA and Lateral MR#: [id number] Acct: [id number] Name: BRENDONANSLEY Rep #: [id number] : 1940 M 78 From: Donovna Shelby MD PCP: Yesenia Crocker MD Status: REG ER Study: Chest PA and Lateral Date of Exam: 09/12/18 Exam# [id number] Ordering Dr: Fausto Rivers DO STUDY: X-RAY CHEST REASON FOR EXAM: Male, 78 years old. Chest pain and weakness TECHNIQUE: PA and lateral views of the chest. COMPARISON: 05/25/2018 FINDINGS: There are interstitial fibrotic changes of the lungs. There is no demonstrated pleural abnormality. Normal size heart. Normal mediastinum and marcia. Normal visualized pulmonary arteries. Normal visualized aortic arch and descending thoracic aorta. There are diffuse degenerative changes of the visualized thoracic spine. Normal visualized ribs, clavicles, and shoulders. There is no demonstrated abnormality of the visualized soft tissue structures of the upper abdomen. RAD/Chest PA and Lateral IMPRESSION: Chronic interstitial changes, no superimposed acute pulmonary process Electronically Signed: Claude Shelby MD at 22:34 EDT , Service support , CC: Fausto Rivers DO; Yesenia Crocker MD 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: Signed CBC Collected: 07/15/2018 Status: F Source: [place] 2:40 [facility] TYPE CODE TESTS RESULT OUT OF REFERENCE UNITS RANGE LAB WBC 3.70-11.00 k/uL WBC 3.72 LAB RBC 4.20-6.00 m/uL Low RBC 3.15 LAB HGB 13.0-17.0 g/dL Low Hemoglobin 9.5 LAB HCT 39.0-51.0 % Low Hematocrit 31.6 LAB MCV 80.0-100.0 fL MCV High 100.3 LAB MCH 26.0-34.0 pG MCH 30.2 LAB MCHC 30.5-36.0 g/dL Low MCHC 30.1 LAB RDWCV 11.5-15.0 % RDW-CV High 15.6 LAB PLTCT 150-400 k/uL Low Platelet Count 117 LAB MPV 9.0-12.7 fL MPV 9.7 LAB ABSNUC <0.01 k/uL Absolute nRBC <0.01 Performed By: #### CBC #### [facility] [address] [place], [place] [address] BASIC METABOLIC PANL Collected: 07/15/2018 Status: F Source: [place] 2:39 PM [facility] REPOSITORY TYPE CODE TESTS RESULT OUT OF REFERENCE UNITS RANGE LAB GLU 74-99 mg/dL High Glucose 109 Result Comment: The [place] [employer] (ADA) provides guidance for cutoff values for fasting glucose and random glucose. The ADA defines fasting as no caloric intake for at least 8 hours. Fas ting plasma glucose results between 100 to 125 mg/dL indicate increased risk for diabetes (prediabetes). Fasting plasma glucose results greater than or equal to 126 mg/dL meet the criteria for diagnosis of diabetes. In the absence of unequivocal hyperglycemia, results should be confirmed by repeat testing. In a patient with classic symptoms of hyperglycemia or hyperglycemic crisis, random plasma glucose results greater than or equal to 200 mg/dL meet the criteria for diagnosis of diabetes. Reference: Standards of Medical Care in Diabetes 2016, [place] [employer]. Diabetes Care. 2016.39(Suppl 1). LAB BUN 9-24 mg/dL BUN 17 LAB CRET 0.73-1.22 mg/dL Creatinine High 3.36 LAB NA 136-144 mmol/L Low Sodium 135 LAB K 3.7-5.1 mmol/L Potassium 3.7 LAB CL 97-105 mmol/L Low Chloride 94 LAB CO2 22-30 mmol/L CO2 High 31 LAB AGAP 9-18 mmol/L Anion Gap 10 LAB CA 8.5-10.2 mg/dL Calcium, Total 8.8 LAB GFRAA eGFR- Amer. 22 LAB GFRNAA . eGFR-All Other Races 18 Result Comment: eGFR (Estimated GFR) Units of measure: mL/min/1.73 meters squared eGFR is derived from the reexpressed MDRD Study equation using the following parameters: serum creatinine, age, gender and race. The creatinine assay has been calibrated to be traceable to IDMS. An eGFR <60 mL/min/1.73m2 for >3 months is consistent with chronic kidney disease. Refer to KDOQI guidelines for clinical interpretation. In patients with unstable renal function, e.g. those with acute kidney injury, the eGFR may not accurately reflect actual GFR. Performed By: #### BMP #### [facility] [address] [place], [place] [address] CNOV Observed: 07/15/2018 Status: COMPLETED Source: [place] 2:00 PM [facility] REPOSITORY Office Visit (INTMWS) ANSLEY OLIVAS ([id number]) 1940 M Date Time Provider Department 07/15/18 2:00 PM MARISA OLIVEIRA ([facility]) INTMWS During your visit today, we recorded the following information about you: Pulse Respiration Blood pressure 64/minute 16/minute 98/52 Marisa Oliveira APRN.CNP 07/15/2018 3:17 PM Signed CC: Patient presents with: Hospital Follow Up HPI Ansley Olivas is a 78 year old male who presents today with for [facility] admission on 06/30/18. Patient presented to the ER with complaints of weakness and near syncope following dialysis while climbing the stairs at home. Patient did not lose consciousness or fall. CBC revealed WBC 6.5; H/H 8.1 and 26; platelet count 124. Orthostatics were positive. EKG showed Sinus bradycardia HR 58. Patient was admitted for Near syncope, generalized weakness, anemia and ESTD on dialysis. Patient was discharged home on 07/02 with diagnosis of: Acute on chronic anemia, recent TURP w/hematuria; weakness and near syncope secondary to hypotension r/t HD. Patient is to follow up as outpatient with surgery for endoscopies. Patient reports he is doing okay. Since returning home he denies any dizziness, lightheadedness, chest pain, SOB, acute blood loss-specifically denies hematuria or black/bloody stools. He does report voiding ~2x daily despite dialysis treatments. Last H/H noted at 7.9 and 25.5 on the day of discharge, will repeat labs. Reports he is tolerating new medications from hospital: PO iron supplement and Protonix. REVIEW OF SYSTEMS General: no fevers, no chills, no night sweats, no recurrent infections, no change in appetite, no change in energy and no significant changes in weight HEENT: no frequent or significant headaches, no changes in hearing, no visual changes, no nose bleeds, no sinus or nasal problems Respiratory: no cough, no wheezing, no shortness of breath, no hemoptysis Cardiovascular: no chest pain, no chest pressure, no palpitations and no swelling GI: Negative for abdominal discomfort, blood in stools or black stools, change in bowel habit, diarrhea, heart burn, hematochezia, melena, vomiting, problem swallowing and Positive for nausea chronic intermittent : Negative for dysuria, frequency and hematuria Neurologic: No headache, numbness, tingling, neck stiffness, tremor, vertigo, dizziness, memory loss, syncope. Notes generalized weakness especially after dialysis. 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 Jose Ferreira - Hep C w/o coma, chronic (HCC) Grade 1 Stage I - Kidney disease - Mohs for BCC, left cheek 02-02-08 02/03/2008 - Morbid obesity (HCC) - Renal failure 11/03/2016 - SCAR AND FIBROSIS OF SKIN 07/19/2008 - SOLAR LENGINES///DYSCHROMIA OTHER 07/19/2008 - Unspecified essential hypertension PAST SURGICAL HISTORY Procedure Laterality Date - (2016) TRLUML BALO ANGIOP CTR DIALYSIS SEG W/IMG PRAVEENA 06/03/2017 - AV FUSE, UPPR ARM, CEPHALIC 12/26/2016 - COLONOSCOP W/ OR W/O BRSH SPEC Colonoscopy - COLONOSCOP W/ OR W/O BRSH SPEC 06/14/2008 Colonoscopy - COLOSTOMY - EGD W/O OR W/BRUSH/WASH 09/29/2016 EGD - INS TUNNEL CVC W/O PORT >=5 Right 10/23/2016 - INS TUNNEL CVC W/O PORT >=5 Left 11/03/2016 - INS TUNNEL CVC W/O PORT >=5 01/06/2017 - INTRO CATH DIALYSIS CIRCUIT W/TCAT PLMT IV STENT 02/12/2017 - INTRO CATH DIALYSIS CIRCUIT W/TCAT PLMT IV STENT Left 03/2017 - REMOVAL JADEN CVC W/O PUMP Right 11/03/2016 - REMOVAL JADEN CVC W/O PUMP 01/06/2017 - REMOVAL JADEN CVC W/O PUMP Right 03/19/2017 Removal right IJ catheter - REPAIR ING HERNIA,5+Y/O,REDUCIBL Right 03/17/2001 Hernia repair, inguinal - US GUIDE, VASCULAR ACCESS Left 03/2017 ALLERGIES Beta Blockers [Beta-Blockers (Beta-Adrenergic Blocking Agts)]; Sulfa (Sulfonamide Antibiotics) MEDICATIONS sevelamer carbonate (RENVELA) 800 mg tablet Take 800 mg by mouth three times daily with meals. midodrine (PROAMATINE) 10 mg tablet Take 10 mg by mouth three times daily. ferrous sulfate 325 mg (65 mg iron) tablet Take 325 mg by mouth twice daily. oxyCODONE IR (ROXICODONE) 5 mg immediate release tablet Take 1 tablet by mouth every 8 hours as needed for Pain for up to 30 days.Earliest Fill Date: 06/18/18 amLODIPine (NORVASC) 5 mg tablet DAILY metoprolol tartrate, short acting, (LOPRESSOR) 50 mg tablet Take 1 tablet by mouth twice daily. senna-docusate (SENNA PLUS) 8.6-50 mg per tablet Take 1 tablet by mouth once daily. tamsulosin ER (FLOMAX) 0.4 mg cp24 Take 2 capsules by mouth once daily at 5:30 Ammonium,Pot.and Sodium Lactates (AMLACTIN) crea Apply 1 application to affected area once daily. COMPOUNDED PRESCRIPTION Front wheeled walked with seat attachmentDx (M15.9) Generalized osteoarthritis; (R53.1) Weakness, (R26.81) Gait instability jhxoginrmePOYSX-gkipzo-hbkuntwqb (BMX 1:1:1) 1:1:1 liqd Gargle 5ml and swallow every 4 hours as needed. May use 20 minutes prior to eating COMPOUNDED PRESCRIPTION Home BP cuff, Dx: HTN labile FAMILY HISTORY Problem Relation Age of Onset - Hypertension Mother - Heart Father [place] - Heart Brother [place] - Cancer Sister - Cancer Brother - Stroke Brother 2 brothers - other (polio) Sister Social History Substance Use Topics - Smoking status: Former Smoker Packs/day: 1.00 Years: 10.00 Types: Cigarettes Quit date: 11/22/1969 - Smokeless tobacco: Never Used - Alcohol use No PHYSICAL EXAM BP 98/52 Pulse 64 Resp 16 General Appearance: well appearing, in no acute distress, alert Skin: Skin color, texture, turgor normal for age; Head: normocephalic, atraumatic Eyes: conjunctiva pink and moist, no icterus, sclera white, non-injected Lungs: Lungs clear to auscultation. No wheezing, rhonchi, rales Heart: RRR without murmur, gallop, or rubs. No ectopy Abdomen: Abdomen soft, non-tender. Bowel sounds normal. No masses, organomegaly Bilateral Lower Extremities: No edema DTAP,TDAP,TD(1 - Tdap) due on 1958 SERUM CREATININE due on 02/25/2018 HEMOGLOBIN/HEMATOCRIT due on 02/25/2018 COLORECTAL CANCER SCREENING,SEE MODIFIER due on 06/14/2018 INFLUENZA(1) due on 07/17/2018 ANNUAL PCP TEAM CHRONIC DISEASE VISIT due on 06/10/2019 BLOOD PRESSURE CONTROLLED due on 06/10/2019 DIABETES SCREEN due on 12/08/2020 LIPID SCREEN due on 01/03/2021 ADULT PREVNAR-13 Completed PNEUMOVAX AGE 65 AND OVER WITH 5YR LOOKBACK Completed ASSESSMENT/PLAN: 1. Anemia, unspecified type - ICD9: 285.9, ICD10: D64.9 (primary diagnosis) - No acute or concerning exam findings, H/H trending down prior to hospital discharge- will repeat labs - FERROUS SULFATE 325 MG (65 MG IRON) TABLET - CBC - Patient to follow up with surgery for outpatient endoscopies - Follow up with PCP as previously scheduled 2. Near syncope - ICD9: 780.2, ICD10: R55 - Resolved since discharge - Continue Proamatine as prescribed - Discussed safety measures and fall prevention 3. Weakness - ICD9: 780.79, ICD10: R53.1 - Plan as above - Consider PT for strengthening once patient returns from vacation Marisa Oliveira APRN.TUNNEL HEADING INSPECTOR Prescription instructions reviewed with patient as applicable. Potential red flag symptoms discussed with the patient. Reviewed appropriate action plan to take if red flag symptoms occur. Patient agreeable to treatment plan. Transitional Care Management Progress Note The patients TCM visit was performed within the 14 days of discharge. Patient's Date of discharge: 07/02/18 Date of initial coordinator contact after discharge: 07/05/18 Discharge diagnosis: anemia Medication review completed Yes Tiffanie Bianchi LPN Referring Provider: SELF [[id number]] Allergies As of Date: 07/15/2018 Noted Allergy Reaction BETA BLOCKERS (BETA-BLOCKERS (BET*10/04/2010 14 - Other: See Comments Comments: Severe fatigue SULFA (SULFONAMIDE ANTIBIOTICS) 08/14/2005 4 - Hives Date Reviewed: 07/06/2018 Reviewed by: Aurea Cheung Ma - Fully Assessed Reason for Visit: Hospital Follow Up [177] Primary Visit Diagnosis:Anemia, unspecified type [D64.9] Other Visit Diagnoses:Near syncope [R55] Weakness [R53.1] Order(s):ondansetron orally disintegrating (ZOFRAN ODT) 4 mg disintegrating tabletTake 1 tablet by mouth every 6 hours as needed for Nausea/Vomiting.Disp: 30 tabletRfl: 1 [facility] [SQCB] Order #: [id number] FUTURE Prescriptions as of 07/15/2018 Sig: SEVELAMER CARBONATE 800 MG TA* Take 800 mg by mouth three ti* MIDODRINE 10 MG TABLET Take 10 mg by mouth three faustina* FERROUS SULFATE 325 MG (65 MG* Take 325 mg by mouth twice da* OXYCODONE 5 MG TABLET Take 1 tablet by mouth every * AMLODIPINE 5 MG TABLET DAILY METOPROLOL TARTRATE 50 MG TAB* Take 1 tablet by mouth twice * SENNOSIDES 8.6 MG-DOCUSATE SO* Take 1 tablet by mouth once d* TAMSULOSIN 0.4 MG CAPSULE Take 2 capsules by mouth once* AMMONIUM LACTATE-SODIUM LACTA* Apply 1 application to affect* COMPOUNDED PRESCRIPTION Front wheeled walked with sea* ZGSOIVSPSMAOHCE-[id number]* Gargle 5ml and swallow every * * COMPOUNDED PRESCRIPTION Home BP cuff, Dx: HTN labile ONDANSETRON 4 MG DISINTEGRATI* Take 1 tablet by mouth every * Problem List As Of Date 07/15/2018 Noted Resolved Class 1 obesity due to excess calories with ser* Essential hypertension [I10] 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] INVALID FOR* HERPES ZOSTER NOS [B02.9] INVALID FOR* DYSMETABOLIC SYNDROME X [E88.81] ANEMIA NOS [D64.9] Mohs for BCC, left cheek 02-03-08 [173.8] INVALID FOR* ACTINIC KERATOSES (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 Complication of dialysis access insertion (HCC)*INVALID FOR* Acute deep vein thrombosis (DVT) of both upper *INVALID FOR*06/10/2018 ESRD on hemodialysis (HCC) [N18.6, Z99.2] INVALID FOR* More... Weakness [R53.1] INVALID FOR* More... BPH with obstruction/lower urinary tract sympto*INVALID FOR* More... 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 Gait instability [R26.81] INVALID FOR* Prescriptions ordered this encounter Disp Refills Start End ONDANSETRON 4 MG DISINTEGRATING TABL* 30 t* 1 07/15/2018 Route: ORAL Sig: Take 1 tablet by mouth every 6 hours as needed for Nausea/Vomiting. Encounter Status:Closed by MARISA OLIVEIRA CNP on 07/15/18 PROGRESS Observed: 07/15/2018 Status: COMPLETED Source: [place] 1:59 PM [facility] REPOSITORY HNO ID: [id number] Author: Marisa Oliveira Service: (none) Author Type: Nurse Practitioner Type: Progress Notes Filed: 07/15/2018 3:17 PM Note Text: CC: Patient presents with: Hospital Follow Up HPI Ansley Olivas is a 78 year old male who presents today with for [facility] admission on 06/30/18. Patient presented to the ER with complaints of weakness and near syncope following dialysis while climbing the stairs at home. Patient did not lose consciousness or fall. CBC revealed WBC 6.5; H/H 8.1 and 26; platelet count 124. Orthostatics were positive. EKG showed Sinus bradycardia HR 58. Patient was admitted for Near syncope, generalized weakness, anemia and ESTD on dialysis. Patient was discharged home on 07/02 with diagnosis of: Acute on chronic anemia, recent TURP w/hematuria; weakness and near syncope secondary to hypotension r/t HD. Patient is to follow up as outpatient with surgery for endoscopies. Patient reports he is doing okay. Since returning home he denies any dizziness, lightheadedness, chest pain, SOB, acute blood loss-specifically denies hematuria or black/bloody stools. He does report voiding ~2x daily despite dialysis treatments. Last H/H noted at 7.9 and 25.5 on the day of discharge, will repeat labs. Reports he is tolerating new medications from hospital: PO iron supplement and Protonix. REVIEW OF SYSTEMS General: no fevers, no chills, no night sweats, no recurrent infections, no change in appetite, no change in energy and no significant changes in weight HEENT: no frequent or significant headaches, no changes in hearing, no visual changes, no nose bleeds, no sinus or nasal problems Respiratory: no cough, no wheezing, no shortness of breath, no hemoptysis Cardiovascular: no chest pain, no chest pressure, no palpitations and no swelling GI: Negative for abdominal discomfort, blood in stools or black stools, change in bowel habit, diarrhea, heart burn, hematochezia, melena, vomiting, problem swallowing and Positive for nausea chronic intermittent : Negative for dysuria, frequency and hematuria Neurologic: No headache, numbness, tingling, neck stiffness, tremor, vertigo, dizziness, memory loss, syncope. Notes generalized weakness especially after dialysis. 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 Jose Ferreira - Hep C w/o coma, chronic (HCC) Grade 1 Stage I - Kidney disease - Mohs for BCC, left cheek 08 02/03/2008 - Morbid obesity (HCC) - Renal failure 11/03/2016 - SCAR AND FIBROSIS OF SKIN 07/19/2008 - SOLAR LENGINES///DYSCHROMIA OTHER 07/19/2008 - Unspecified essential hypertension PAST SURGICAL HISTORY Procedure Laterality Date - (2016) TRLUML BALO ANGIOP CTR DIALYSIS SEG W/IMG PRAVEENA 06/03/2017 - AV FUSE, UPPR ARM, CEPHALIC 12/26/2016 - COLONOSCOP W/ OR W/O [facility] SPEC Colonoscopy - COLONOSCOP W/ OR W/O BRSH SPEC 06/14/2008 Colonoscopy - COLOSTOMY - EGD W/O OR W/BRUSH/WASH 09/29/2016 EGD - INS TUNNEL CVC W/O PORT >=5 Right 10/23/2016 - INS TUNNEL CVC W/O PORT >=5 Left 11/03/2016 - INS TUNNEL CVC W/O PORT >=5 01/06/2017 - INTRO CATH DIALYSIS CIRCUIT W/TCAT PLMT IV STENT 02/12/2017 - INTRO CATH DIALYSIS CIRCUIT W/TCAT PLMT IV STENT Left 03/2017 - REMOVAL JADEN CVC W/O PUMP Right 11/03/2016 - REMOVAL JADEN CVC W/O PUMP 01/06/2017 - REMOVAL JADEN CVC W/O PUMP Right 03/19/2017 Removal right IJ catheter - REPAIR ING HERNIA,5+Y/O,REDUCIBL Right 03/17/2001 Hernia repair, inguinal - US GUIDE, VASCULAR ACCESS Left 03/2017 ALLERGIES Beta Blockers [Beta-Blockers (Beta-Adrenergic Blocking Agts)]; Sulfa (Sulfonamide Antibiotics) MEDICATIONS sevelamer carbonate (RENVELA) 800 mg tablet Take 800 mg by mouth three times daily with meals. midodrine (PROAMATINE) 10 mg tablet Take 10 mg by mouth three times daily. ferrous sulfate 325 mg (65 mg iron) tablet Take 325 mg by mouth twice daily. oxyCODONE IR (ROXICODONE) 5 mg immediate release tablet Take 1 tablet by mouth every 8 hours as needed for Pain for up to 30 days.Earliest Fill Date: 06/18/18 amLODIPine (NORVASC) 5 mg tablet DAILY metoprolol tartrate, short acting, (LOPRESSOR) 50 mg tablet Take 1 tablet by mouth twice daily. senna-docusate (SENNA PLUS) 8.6-50 mg per tablet Take 1 tablet by mouth once daily. tamsulosin ER (FLOMAX) 0.4 mg cp24 Take 2 capsules by mouth once daily at 5:30 Ammonium,Pot.and Sodium Lactates (AMLACTIN) crea Apply 1 application to affected area once daily. COMPOUNDED PRESCRIPTION Front wheeled walked with seat attachmentDx (M15.9) Generalized osteoarthritis; (R53.1) Weakness, (R26.81) Gait instability uobqpyxbnvWEUYK-yspjus-xyeyglzvz (BMX 1:1:1) 1:1:1 liqd Gargle 5ml and swallow every 4 hours as needed. May use 20 minutes prior to eating COMPOUNDED PRESCRIPTION Home BP cuff, Dx: HTN labile FAMILY HISTORY Problem Relation Age of Onset - Hypertension Mother - Heart Father [place] - Heart Brother [place] - Cancer Sister - Cancer Brother - Stroke Brother 2 brothers - other (polio) Sister Social History Substance Use Topics - Smoking status: Former Smoker Packs/day: 1.00 Years: 10.00 Types: Cigarettes Quit date: 11/22/1969 - Smokeless tobacco: Never Used - Alcohol use No PHYSICAL EXAM BP 98/52 Pulse 64 Resp 16 General Appearance: well appearing, in no acute distress, alert Skin: Skin color, texture, turgor normal for age; Head: normocephalic, atraumatic Eyes: conjunctiva pink and moist, no icterus, sclera white, non-injected Lungs: Lungs clear to auscultation. No wheezing, rhonchi, rales Heart: RRR without murmur, gallop, or rubs. No ectopy Abdomen: Abdomen soft, non-tender. Bowel sounds normal. No masses, organomegaly Bilateral Lower Extremities: No edema DTAP,TDAP,TD(1 - Tdap) due on 1958 SERUM CREATININE due on 02/25/2018 HEMOGLOBIN/HEMATOCRIT due on 02/25/2018 COLORECTAL CANCER SCREENING,SEE MODIFIER due on 06/14/2018 INFLUENZA(1) due on 07/17/2018 ANNUAL PCP TEAM CHRONIC DISEASE VISIT due on 06/10/2019 BLOOD PRESSURE CONTROLLED due on 06/10/2019 DIABETES SCREEN due on 12/08/2020 LIPID SCREEN due on 01/03/2021 ADULT PREVNAR-13 Completed PNEUMOVAX AGE 65 AND OVER WITH 5YR LOOKBACK Completed ASSESSMENT/PLAN: 1. Anemia, unspecified type - ICD9: 285.9, ICD10: D64.9 (primary diagnosis) - No acute or concerning exam findings, H/H trending down prior to hospital discharge- will repeat labs - FERROUS SULFATE 325 MG (65 MG IRON) TABLET - CBC - Patient to follow up with surgery for outpatient endoscopies - Follow up with PCP as previously scheduled 2. Near syncope - ICD9: 780.2, ICD10: R55 - Resolved since discharge - Continue Proamatine as prescribed - Discussed safety measures and fall prevention 3. Weakness - ICD9: 780.79, ICD10: R53.1 - Plan as above - Consider PT for strengthening once patient returns from vacation Marisa Oliveira APRN.TUNNEL HEADING INSPECTOR Prescription instructions reviewed with patient as applicable. Potential red flag symptoms discussed with the patient. Reviewed appropriate action plan to take if red flag symptoms occur. Patient agreeable to treatment plan. Transitional Care Management Progress Note The patients TCM visit was performed within the 14 days of discharge. Patient's Date of discharge: 07/02/18 Date of initial coordinator contact after discharge: 07/05/18 Discharge diagnosis: anemia Medication review completed Yes Tiffanie Bianchi LPN PROGRESS Observed: 07/06/2018 Status: COMPLETED Source: [place] 4:15 PM [facility] REPOSITORY HNO ID: [id number] Author: Mary Howard Service: (none) Author Type: Physician Type: Progress Notes Filed: 07/06/2018 4:27 PM Note Text: Subjective: Patient presents to clinic c/o painful toenails. They state that the nails are especially painful with shoe gear and pressure. Patient states that nails right hallux are painful. Patient denies being diabetic. No other pedal complaints at this time. Patient states no change in medications or medical history since last visit. Objective: Patient presents to clinic ambulating in tennis shoes Vasc: DP and PT pulses are nonpalpable bilateral. CFT is less than 5 seconds bilateral. Skin temperature is warm to cool proximal to distal bilateral. There is mild edema or varicosities noted. Neuro: Protective sensation is absent to the foot and toes when tested with the 5.07 SWM bilateral. Vibratory sensation is absent at the hallux IPJ bilateral. The hallux is downgoing bilateral. Derm: Nails 1-5 b/l are painful, discolored-yellow, thick, crumbly, dystrophic and with subungal debris. Skin is of normal turgor, texture and hair growth is decreased bilateral. There are no hyperkeratosis, ulcerations, scars, verruca or other lesions noted. Ortho: Muscle strength is 5/5 for all pedal groups tested. Ankle joint DF is full with the knee extended with no pain or crepitus noted. 1st MPJ ROM is full bilateral. Assessment: (B35.1) Onychomycosis (primary encounter diagnosis) (M79.675) Pain in toe of left foot (M79.674) Pain in toe of right foot Plan: Patient was seen and evaluated. Nails 1-5 bilateral were debrided in length and thickness. If pain persists, consider total nail matrixectomy but would require pvr prior. Mary Howard DPM CNOV Observed: 07/06/2018 Status: COMPLETED Source: [place] 3:40 PM [facility] REPOSITORY Office Visit (PODIWS) ANSLEY OLIVAS ([id number]) 1940 M Date Time Provider Department 07/06/18 3:40 PM TESTRAKE, MARY PODIWS During your visit today, we recorded the following information about you: Mary Howard DPM 07/06/2018 4:27 PM Signed Subjective: Patient presents to clinic c/o painful toenails. They state that the nails are especially painful with shoe gear and pressure. Patient states that nails right hallux are painful. Patient denies being diabetic. No other pedal complaints at this time. Patient states no change in medications or medical history since last visit. Objective: Patient presents to clinic ambulating in tennis shoes Vasc: DP and PT pulses are nonpalpable bilateral. CFT is less than 5 seconds bilateral. Skin temperature is warm to cool proximal to distal bilateral. There is mild edema or varicosities noted. Neuro: Protective sensation is absent to the foot and toes when tested with the 5.07 SWM bilateral. Vibratory sensation is absent at the hallux IPJ bilateral. The hallux is downgoing bilateral. Derm: Nails 1-5 b/l are painful, discolored-yellow, thick, crumbly, dystrophic and with subungal debris. Skin is of normal turgor, texture and hair growth is decreased bilateral. There are no hyperkeratosis, ulcerations, scars, verruca or other lesions noted. Ortho: Muscle strength is 5/5 for all pedal groups tested. Ankle joint DF is full with the knee extended with no pain or crepitus noted. 1st MPJ ROM is full bilateral. Assessment: (B35.1) Onychomycosis (primary encounter diagnosis) (M79.675) Pain in toe of left foot (M79.674) Pain in toe of right foot Plan: Patient was seen and evaluated. Nails 1-5 bilateral were debrided in length and thickness. If pain persists, consider total nail matrixectomy but would require pvr prior. Mary Howard DPM Referring Provider: SELF [[id number]] Allergies As of Date: 07/06/2018 Noted Allergy Reaction BETA BLOCKERS (BETA-BLOCKERS (BET*10/04/2010 14 - Other: See Comments Comments: Severe fatigue SULFA (SULFONAMIDE ANTIBIOTICS) 08/14/2005 4 - Hives Date Reviewed: 07/06/2018 Reviewed by: Aurea Cheung Ma - Fully Assessed Reason for Visit: Follow Up [171] right great toe pain [Other] nail care [Other] Primary Visit Diagnosis:Onychomycosis [B35.1] Other Visit Diagnoses:Pain in toe of left foot [M79.675] Pain in toe of right foot [M79.674] Prescriptions as of 07/06/2018 Sig: CIPROFLOXACIN 250 MG TABLET DAILY OXYCODONE 5 MG TABLET Take 1 tablet by mouth every * AMLODIPINE 5 MG TABLET DAILY METOPROLOL TARTRATE 50 MG TAB* Take 1 tablet by mouth twice * SENNOSIDES 8.6 MG-DOCUSATE SO* Take 1 tablet by mouth once d* TAMSULOSIN 0.4 MG CAPSULE Take 2 capsules by mouth once* AMMONIUM LACTATE-SODIUM LACTA* Apply 1 application to affect* COMPOUNDED PRESCRIPTION Front wheeled walked with sea* [id number]* Gargle 5ml and swallow every * * COMPOUNDED PRESCRIPTION Home BP cuff, Dx: HTN labile Problem List As Of Date 07/06/2018 Noted Resolved Class 1 obesity due to excess calories with ser* Essential hypertension [I10] 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] INVALID FOR* HERPES ZOSTER NOS [B02.9] INVALID FOR* DYSMETABOLIC SYNDROME X [E88.81] ANEMIA NOS [D64.9] Mohs for BCC, left cheek 02-03-08 [173.8] INVALID FOR* ACTINIC KERATOSES (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 Complication of dialysis access insertion (HCC)*INVALID FOR* Acute deep vein thrombosis (DVT) of both upper *INVALID FOR*06/10/2018 ESRD on hemodialysis (HCC) [N18.6, Z99.2] INVALID FOR* More... Weakness [R53.1] INVALID FOR* More... BPH with obstruction/lower urinary tract sympto*INVALID FOR* More... 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 Gait instability [R26.81] INVALID FOR* Disposition: Return in about 3 months (around 10/06/2018) for Nail Care. Follow-up and Disposition History Recorded Encounter Status:Closed by MARY HOWARD DPM on 07/06/18 DISCHARGE SUMMARY Observed: 07/02/2018 Status: F Source: [place] 2:[address] [facility] REPOSITORY [facility] Medical Records Department [address] [place] [address] [place] [address] Discharge Summary 07/02/18 1347 MR#: [id number] Acct: [id number] Name: ANSLEY OLIVAS Rep #: [id number] : 1940 78 From: Toyin Miguel BATTERY TEST ENGINEER-C PCP: Yesenia Crocker MD Status: ADM IN Y Location: [place] [address] ADDENDUM by Soledad Page on 07/02/18 at 1424 Code Visit ATTENDING PHYSICIAN DISCHARGE NOTE: I have seen and examined the patient independently and agree with the assessment, plan, history per Toyin Miguel as noted. 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 Moore w/ castillo in place w/ planned d/c at follow-up 07/06/18 who presented to the [facility] ED on 06/30/18 w/ history of ongoing progressively worsening weakness, debility, falls w/ associated lightheadedness, dizziness. Patient admitted to PCU, maintained on telemetry, cardiac enzymes not marked appearing, ECHO obtained w/ normal LV systolic function, EF 55%, moderately enlarged LA, trivial MVI, trivial TBI, mild aortic stenosis, RVSP 42 mmHg, evidence of diastolic dysfunction. Admission Hgb 8.1-->repeat 8, prior recent TURP Hgb 9 but has been trending down from 11 for several months, poor historian on stool appearance, Fe panel consistent with Fe deficiency, given severity of debility, Fe transfusion given, obtained serial HH with not marked change from admission, maintained on IV PPI transitioned to oral, surgery consultation and performed and follow-up guiac negative thus decision for endoscopies outpatient. Upon admission, notified Dr. Moore of patient admission given recent TURP secondary to BPH on 06/25/18, w/ post-Hgb decreased from prior, maintained on cipro renally dosed per Dr. Moore discharge instructions, castillo continued w/ planned d/c at follow-up 07/06/18, noted no obvious clots, UA w/ microscopic hematuria and urology noted OR operative blood loss noted to be minimal, thus possibly may be primary etiology for acute anemia, but has had ongoing decrease since beginning of the year thus as noted concern for GI etiology also. Also concern during admission for HD hypotension as etiology for debility, weakness and falls. PT, OT consulted, patient preference for discharge to home. Nephrology consulted during admission and HD performed w/ altered parameters given hypotension and recent events with BP parameters to BP regimen upon discharge. Patient discharged to home in improved condition with requested follow-up with his PCP, Surgery and Nephrology. Discharge Time: > 35 Minutes DAY OF DISCHARGE PROGRESS NOTE: Subjective: Patient without acute event overnight per self and nursing report. He notes feeling less weak and eager for discharge. Amenable to outpatient endoscopies with Dr. Aguayo. Patient denies fever, chills, nausea, emesis, abdominal pain, chest pain or dyspnea. Patient agreeable to discharge to home. Patient will be discharged with follow- up with primary care physician within 3-5 days in addition to Surgery and his [employer] Reading [employer]. Objective: T 98.5, heart rate 60, BP 140/62, respiratory rate 16, 95% on room air. Physical Examination: General: awake, alert, oriented x 3 and cooperative, seated upright in bed in no apparent distress. Skin: normal color, turgor, no icterus, cyanosis and occasional very staged ecchymoses. HEENT: AT/NC, EOMI, PERRLA, improved MMM. Lungs: Diminished bases BL, moderate effort, no rales, ronchi or wheezing. Heart: Regular rate and rhythm; no gallop, rub audible. Abdomen: soft, obese, NTTP, ND, normal BS, castillo in place. Extremities: no cyanosis, clubbing, + LUE AVF thrill. Neurological: patient awake, alert, oriented x 3; cognitive function intact; pupils equally reactive to light and accomodation; cranial nerves II-XII grossly normal, moving all 4 extremities, no focal deficits, strength improved, moderately globally decreased. Psychiatric: affect appears normal, no acute evidence of depressive or anxiety feelings. Assessment and Plan: Please see hospital summary above. Inpatient E AND M: [id number] Disch Hosp 07/02/18 1424 <Electronically signed by Soledad Page > Date Soledad Page cc: NO Miguel; Soledad Page; Yesenia Crocker MD * Signed Discharge Date and Diagnosis Date of Admission: 06/30/18 Date of Discharge: 07/02/18 - Primary Discharge Diagnosis Active and Suspected Problems 1. Near syncope, generalized weakness suspected secondary to hypotension as a result of fluid removal during dialysis 2. Hypotension 3. Acute anemia on anemia of chronic disease/iron deficiency anemia 4. 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 Cabrera- Nephrology Dr. Moore- Urology Dr. Martinez- Surgery Operations: None, TURP Procedures: 2-D Echocardiogram Summary of Care Provided: The patient is a 78 year old admitted 06/30/2018 due to near syncope. He has a past medical history of end-stage renal disease on hemodialysis, history of DVT, BPH with recent TURP 06/23/2018, hypertension, morbid obesity. 1. Presyncope, generalized weakness-occurred after dialysis treatment 06/30/2018. Patient reports feeling well prior to dialysis treatment. Suspect secondary to hypotension as a result of fluid removal during dialysis as well as acute on chronic anemia. Orthostatic vitals negative. Troponin negative. Echocardiogram demonstrated an EF of 55%, mild aortic stenosis, RVSP estimated to be 42 mmHg. 2. Acute anemia on anemia of chronic disease/iron deficiency anemia-baseline hemoglobin 10-11. Hemoglobin 7.9 at discharge. Stool for occult blood negative. Iron studies show iron deficiency anemia. Patient states he has not had colonoscopy since 2006 and states colonoscopy was normal at that time. Begin iron supplementation. Possibly secondary to recent TURP. Surgery consulted who plans on outpatient follow-up for EGD/colonoscopy. Patient will continue iron supplementation and PPI at discharge with further evaluation by general surgery. 3. End-stage renal disease on hemodialysis-nephrology consulted. HD M,W,F. Creatinine stable. 4. BPH with recent TURP 06/23/18. Patient continues to have three-way Castillo catheter. He is to follow-up next week with Dr. Moore. Continue Flomax regimen. Urinalysis with 500 leukocytes, occult blood 250. Negative nitrate. Castillo catheter without ansley blood noted. 5. History of DVT bilateral internal jugular vein-previously on Coumadin which has since been discontinued. 6. Hypertension-stable. Continue home metoprolol regimen. 7. Morbid obesity- Encourage diet and lifestyle modifications. Nutrition consult. General: Alert, Oriented x3, Cooperative, No apparent distress HEENT: Atraumatic, PERRLA, EOMI, Normocephalic Neck: Supple, No JVD, Negative Carotid Bruits Lungs: Clear to auscultation, Diminished Cardiovascular: Regular rate, Regular Rhythm, Normal S1, Normal S2, No murmurs Abdomen: Bowel Sounds Present, Soft, Non Tender, Non-Distended, Obese Extremities: No clubbing, No cyanosis, No edema, Capillary Refill Less than 3 Seconds, - - Left upper extremity AV fistula Skin: No rashes, No breakdown Musculoskeletal: No Tenderness to Palpation of Joints or Extremities, Tenderness - Right great toe Neurological: Cranial nerves II-XII grossly intact, Neuro grossly intact Psych/Mental Status: Normal Affect, Appropriate Patient seen exam prior to discharge. Physical assessment as noted above. Patient stable for discharge home with the follow-up recommendations as noted above. This patient was seen by NO Howard under the supervision of Dr. Page. Discharge Diet: Low fat/ Low Cholesterol, Renal Diet Discharge Activity: - - Avoid aggressive activity until cleared per Primary Care Physician. Call your doctor if you observe: Fever of 101 or Higher, Inability to urinate - Change in castillo output or change in color, more bright red appearing or clots noted., Inability to have a bowel movement, Shortness of breath, Dizziness, Fainting spells, Chest pain, Uncontrolled pain Drain: Proctor Home Medications: Medications to take at Discharge Sennosides/Docusate Sodium [Docusate Sodium-Senna Tablet] 1 ea PO PRN PRN 08/07/16 Tamsulosin HCl [Flomax] 0.4 mg PO BID 10/23/16 Metoprolol Tartrate [Lopressor (beta keila)] 50 mg PO BID tab 11/03/16 Midodrine HCl [Proamatine] 10 mg PO MOWEFR 06/17/18 Oxycodone [Oxyir] 5 mg PO Q8H PRN PRN 06/17/18 Sevelamer HCl [Renagel] 800 mg PO TIDCM 06/17/18 Ciprofloxacin [Cipro] 250 mg PO DAILY 06/30/18 Nepro Liquid [Nepro Carb Steady] 120 ml PO BID 06/30/18 Ferrous Sulfate 325 mg PO BIDCM #60 tab 07/02/18 Pantoprazole Sodium [Protonix] 40 mg PO BID #60 tab 07/02/18 Following Prescrptions Were Given to Patient: Ferrous Sulfate 325 mg PO BIDCM #60 tab Pantoprazole Sodium [Protonix] 40 mg PO BID #60 tab Primary Care Physician: Yesenia Crocker MD [Primary Care Provider] - Please follow up with your Primary Care Physician in: Follow- up within 3-5 days to review admission. Please Follow Up With: Etienne Aguayo MD When: Please f/u within 1 wk to arrange outpatient endoscopies. Please Follow Up With: Adrian Cosme MD When: Please follow-up with your senior data architect as previously arranged with HD. Please Follow Up With: Aleks Moore MD When: Current follow-up for 07/07/18.Castillo to remain.Complete antibiotic therapy. Patient Instructions: When You Have Gastrointestinal (GI) Bleeding, Treating Syncope: Prevention, Understanding Dizziness, Balance Problems, and Fainting, Discharge Instructions for Low Blood Pressure (Hypotension), ED Hypotension Orthostatic Disposition: Home with Home Health Minutes spent on discharge:: 35 Patient Condition:: Stable Medical Necessity - Tobacco Use Smoking Status: Former smoker Meaningful Use Info Meaningful Use Diagnoses (Choose all that apply): None applicable 07/02/18 1356 <Electronically signed by Toyin BURDENC> Date Toyin BURDENC 07/02/18 1415<Electronically signed by Soledad Page > Cosigner Signature (if applicable): Date Soledad Page CC: BATTERY TEST ENGINEER-C Toyin Miguel; Soledad Page; Yesenia Crocker MD Signed 12 LEAD ELECTROCARDIOGRAM Observed: 07/02/2018 Status: F Source: [place] 1:[address] [facility] REPOSITORY [facility] Cardiovascular Services [address] [place] [address] 12 Lead EKG 06/30/18 1259 MR#: [id number] Acct: [id number] Name: ANSLEY OLIVAS Rep #: [id number] : 1940 78 From: Marcos Weinstein MD Attending Dr: Soledad Page Status: ADM IN Ordering Dr: Verna Yi DO Date: 06/30/18 Location: [facility] Sex: M C Admitted: 07/01/18 Test Reason : SYNCOPE Blood Pressure : / mmHG Vent. Rate : 058 BPM Atrial Rate : 058 BPM P-R Int : 158 ms QRS Dur : 082 ms QT Int : 460 ms P-R-T Axes : 020 -05 022 degrees QTc Int : 451 ms Sinus bradycardia Otherwise normal ECG Confirmed by MARCOS WEINSTEIN MD ([id number]), television news video editor JAMEEL PENG ([id number]) on 07/02/2018 1:39:18 PM Referred By: Artur Reddy Confirmed By:MARCOS WEINSTEIN MD 07/02/18 1339 Date Marcos Weinstein MD CC: Soledad Page; Yesenia Crocker MD; Artur Reddy MD; Verna Yi DO Signed DISCHARGE INSTRUCTION Observed: 07/02/2018 Status: F Source: [place] 11:[address] [facility] REPOSITORY [facility] Medical Records Department [address] [place] [id number] Instructions for Home/Discharge Instructions 07/02/18 1128 MR#: [id number] Acct: [id number] Name: ANSLEY OLIVAS Rep #: [id number] : 1940 78 From: Soledad Page PCP: Yesenia Crocker MD Status: ADM IN - Discharge Diagnoses Current Active Problems: Current Active and Chronic Problems (1) Acute on Chronic Anemia, Fe Deficiency, AOCD possible secondary to GI Bleed (2) Recent TURP secondary to BPH w/ Hematuria, Mild (3) Debility, Weakness, Falls w/ Near Syncopal Event, suspected secondary to Hypotension w/ HD administration, BP regimen and #1 (4) Hypotension, suspected secondary to HD administration, BP regimen and #1, #2 (5) 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 Call your doctor if you observe: Fever of 101 or Higher, Inability to urinate - Change in castillo output or change in color, more bright red appearing or clots noted., Inability to have a bowel movement, Shortness of breath, Dizziness, Fainting spells, Chest pain, Uncontrolled pain Drain: Proctor Instructions: Treating Syncope: Prevention, Understanding Dizziness, Balance Problems, and Fainting, ED Hypotension Orthostatic, When You Have Gastrointestinal (GI) Bleeding, Discharge Instructions for Low Blood Pressure (Hypotension) Additional Instructions: BP medication parameters: Hold BP regimen for systolic blood pressure (top number) < or = 110 and additionally may also hold any beta-keila for heart rate < or = 60. Please have repeat complete blood count with your primary care physician at follow-up. Allergies/Adverse Reactions: Allergies Sulfa (Sulfonamide Antibiotics) Allergy (Severe, Verified 06/30/18 12:21) Hives Medications to take at Discharge Sennosides/Docusate Sodium [Docusate Sodium-Senna Tablet] 1 ea PO PRN PRN 08/07/16 Tamsulosin HCl [Flomax] 0.4 mg PO BID 10/23/16 Metoprolol Tartrate [Lopressor (beta keila)] 50 mg PO BID tab 11/03/16 Midodrine HCl [Proamatine] 10 mg PO MOWEFR 06/17/18 Oxycodone [Oxyir] 5 mg PO Q8H PRN PRN 06/17/18 Sevelamer HCl [Renagel] 800 mg PO TIDCM 06/17/18 Ciprofloxacin [Cipro] 250 mg PO DAILY 06/30/18 Nepro Liquid [Nepro Carb Steady] 120 ml PO BID 06/30/18 Ferrous Sulfate 325 mg PO BIDCM #60 tab 07/02/18 Pantoprazole Sodium [Protonix] 40 mg PO BID #60 tab 07/02/18 The following prescriptions were given: Ferrous Sulfate 325 mg PO BIDCM #60 tab Pantoprazole Sodium [Protonix] 40 mg PO BID #60 tab Primary Care Physician: Yesenia Crocker MD [Primary Care Provider] - Please follow up with your Primary Care Physician in: Follow- up within 3-5 days to review admission. Test Results: Test results from this visit will be discussed in further detail at your follow-up appointment, if applicable. Please Follow Up With: Etienne Aguayo MD - May opt to see Dr. Martinez also who is with Dr. Aguayo in the same group. When: Please f/u within 1 wk to arrange outpatient endoscopies. Please Follow Up With: Adrian Cosme MD When: Please follow-up with your senior data architect as previously arranged with HD. Please Follow Up With: Aleks Moore MD When: Current follow-up for 07/07/18.Castillo to remain.Complete antibiotic therapy. Proposed Discharge Date: 07/02/18 07/02/18 1136 <Electronically signed by Soledad Page > Date Soledad Page CC: Eduar Cabrera M.D.; Aleks Moore MD; Yesenia Crocker MD; Brooke Martinez MD CBC W/DIFF, AUTOMATED Collected: 07/02/2018 Status: F Source: [place] 5:[address] [facility] REPOSITORY TYPE CODE TESTS RESULT OUT OF RANGE REFERENCE UNITS LAB L100.1000 4.4-11.0 K/mm3 Normal WBC 4.8 LAB L100.1200 4.6-6.2 M/mm3 Low RBC 2.63 LAB L100.1300 13.0-16.5 g/dl Low HGB 7.9 LAB L100.1400 40-54 % Low HCT 25.5 LAB L100.1500 80-94 fL High MCV 97.0 LAB L100.1600 27.0-32.0 pg Normal MCH 30.0 LAB L100.1700 32-36 g/gl Low MCHC 31.0 LAB L100.1810 11.6-14.6 % High RDW CV 15.1 LAB L100.1820 35.1-43.9 fl High RDW SD 50.3 LAB L100.1900 150-450 K/mm3 Normal PLT 163 LAB L100.2000 6.2-12.0 fl Normal MPV 8.5 LAB L100.2100 47-70 % Normal NEUT% 60.3 LAB L100.2200 19-41 % Normal LY% 26.9 LAB L100.2300 0-10 % High MONO% 10.1 LAB L100.2400 0-5 % Normal EO% 1.7 LAB L100.2500 0-1 % Normal BASO% 0.2 LAB L100.2550 0.0-0.9 % Normal IM GRAN % 0.800 Result Comment: IG% - Immature Granulocytes (promyelocytes, myelocytes and metamyelocytes) > 1% indicates that a LEFT SHIFT is Present. LAB L100.2620 2.0-7.7 X10 3/uL Normal Absolute Neut 2.9 LAB L100.2720 0.83-4.51 X10 3/ul Normal Absolute Lymph 1.30 Performed By: #### L100.0100 #### [facility] [address] [place], [address] BASIC METABOLIC Collected: 07/02/2018 Status: F Source: [place] PROFILE (BMP) 5:[address] [facility] REPOSITORY TYPE CODE TESTS RESULT OUT OF RANGE REFERENCE UNITS LAB L501.0100 74-106 mg/dL Normal GLU 89 Result Comment: Please note revised GLUCOSE reference range effective 2017. LAB L501.1000 7-18 mg/dL High BUN 19 LAB L501.1100 0.70-1.30 mg/dL High CREAT,SERUM 3.77 Result Comment: The validity of the calculated GFR AND GFRAA in patients over 70 years has not been determined. Clinical correlation is essential. LAB L501.1110 >60 mL/min Low EST GFR 17 Result Comment: Non- GFR Calc LAB L501.1115 >60 mL/min Low EST GFR - AA 20 Result Comment: GFR Calc LAB L501.1255 ml/min Normal Estimated CRCL 12.27 LAB L501.1300 10-20 RATIO Low BUN/CRE 5.0 LAB L501.2200 8.5-10 mg/dL Low .1 CA 8.0 LAB L501.5300 136-14 mmol/L Normal 5 NA 139 LAB L501.5600 3.5-5. mmol/L Low 1 K 3.1 LAB L501.5900 98-107 mmol/L Normal CL 102 LAB L501.6100 21.0-3 mmol/L Normal 2.0 CO2 28.0 LAB L501.6200 5-15 Normal GAP 9 Performed By: #### L500.2500 #### [facility] [address] [place], [address] HH, HEMOGLOBIN AND Collected: 07/02/2018 Status: F Source: [place] HEMATOCRIT 12:[address] [facility] REPOSITORY TYPE CODE TESTS RESULT OUT OF RANGE REFERENCE UNITS LAB L100.1300 13.0-16.5 g/dl Low HGB 8.0 LAB L100.1400 40-54 % Low HCT 26.5 Performed By: #### L100.0600 #### [facility] [address] [place], [address] ECHOCARDIOGRAM COMPLETE Observed: 07/01/2018 Status: F Source: [place] 6:[address] [facility] REPOSITORY [facility] Cardiovascular Services [address] [place] [address] Echo Complete 07/01/1814 MR#: [id number] Acct: [id number] Name: ANSLEY OLIVAS Rep #: [id number] : 1940 78 From: Williams Louis MD Attending Dr: Soledad Page Status: ADM IN Ordering Dr: Artur Reddy MD Date: 06/30/18 Location: U Sex: M C Admitted: 07/01/18 Reason For Study: hypotension, near syncope Procedure This was a 2D Doppler, Color Flow transthoracic echocardiogram. The study was technically difficult. Exam performed portable in patient room. Left Ventricle Normal LV size. Left ventricular systolic function is normal. The estimated ejection fraction is 55 %. There is evidence of diastolic dysfunction. No regional wall motion abnormalities noted. Right Ventricle Normal RV size. Normal systolic function. Atria The left atrium is moderately enlarged. Normal right atrium. No doppler evidence for ASD. Mitral Valve There is no mitral annular calcification. Mild focal mitral valve calcification of the anterior leaflet. Trivial mitral valve insufficiency. Tricuspid Valve Normal tricuspid valve. Trivial tricuspid valve insufficiency. Right ventricular systolic pressure estimated to be 42 mmHg. Aortic Valve Trisinus/trileaflet aortic valve. Mild diffuse aortic valve thickening. Mild focal aortic valve calcification. Mild aortic stenosis. Pulmonic Valve The pulmonic valve is not well visualized. Great Vessels Normal sized aortic root. Pericardium/Pleural No pericardial effusion. MMode/2D Measurements AND Calculations LVIDd: 4.6 cm IVSd: 1.1 cm LVOT diam: 2.0 cm LVIDs: 3.1 cm LVPWd: 1.3 cm LVOT area: 3.2 cm2 RVDd: 3.3 cm FS: 33.4 % Ao root diam: 3.0 cm LAV(MOD-bp): 86.1 ml LA A4 area: 24.5 cm2 LA dimension: 4.0 cm LAV(MOD-bp) Indexed: 46.6 ml/m2 LAV(MOD-sp2): 81.5 ml LAV(MOD-sp4): 86.4 ml RA A4 area: 15.3 cm2 Doppler Measurements AND Calculations MV E max laureano: 100.0 cm/sec Lat Peak E' Laureano: 8.2 cm/sec Med Peak E' Laureano: 6.8 cm/sec MV A max laureano: 117.6 cm/sec E/E' lat: 12.2 E/E' med: 14.8 MV E/A: 0.85 Ao V2 max: 207.6 cm/sec LV V1 max: 109.7 cm/sec SV(LVOT): 89.5 ml Ao max P.2 mmHg LV V1 max P.8 mmHg Ao V2 mean: 145.4 cm/sec LV V1 mean P.9 mmHg Ao mean P.4 mmHg LV V1 mean: 81.2 cm/sec Ao V2 VTI: 47.0 cm LV V1 VTI: 28.0 cm LORI(I,D): 1.9 cm2 LORI(V,D): 1.7 cm2 PA V2 max: 104.1 cm/sec TR max laureano: 308.9 cm/sec TR max P.5 mmHg Interpretation Summary The study was technically difficult. Left ventricular systolic function is normal. The estimated ejection fraction is 55 %. The left atrium is moderately enlarged. Mild focal mitral valve calcification of the anterior leaflet. Trivial mitral valve insufficiency. Trivial tricuspid valve insufficiency. Mild aortic stenosis. Right ventricular systolic pressure estimated to be 42 mmHg. There is evidence of diastolic dysfunction. Ordering Physician: Artur Reddy Referring Physician: Yesenia Crocker Performed By: Loly Barbour RDCS, RVT 07/01/181839 Date Williams Louis MD CC: Soledad Page; Yesenia Crocker MD; Artur Reddy MD Date Dictated: 07/01/18813 Date Transcribed: 07/01/181839 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: Signed HH, HEMOGLOBIN AND Collected: 07/01/2018 Status: F Source: [place] HEMATOCRIT 5:[address] [facility] REPOSITORY TYPE CODE TESTS RESULT OUT OF RANGE REFERENCE UNITS LAB L100.1300 13.0-16.5 g/dl Low HGB 8.0 LAB L100.1400 40-54 % Low HCT 25.7 Performed By: #### L100.0600 #### [facility] [address] [place], [address] CONSULTATION Observed: 07/01/2018 Status: F Source: [place] 12:[address] [facility] REPOSITORY [facility] Medical Records Department [address] [place] [address] Consultation 07/01/18 1216 MR#: [id number] Acct: [id number] Name: ANSLEY OLIVAS Rep #: [id number] : 1940 78 From: Brooke Martinez MD PCP: Yesenia Crocker MD Status: ADM REBEKAH Y Location: [place] [address] Reason for Consult Date of Consultation: 07/01/18 Reason for Consultation: anemia History of Present Illness: The patient is a 78 year old M was admitted yesterday due to a near syncopal episode after dialysis. He was going up the steps and then gradually started to go down patient did not fall his he is assistance going back down the stairs. His gave most the history is a patient was a little somnolent but did arouse easily and answer simple questions. Patient's labs did show some anemia with hemoglobin now at 8 from 9 previously per patient did recently undergo a TURP on 06/[address] Lr. Patient stated he was not feeling good/week which was new starting yesterday he states that he has been having some nausea when he has been eating but he is got Zofran the last time he was in the hospital and that had been helping. He was able to eat eggs and toast this morning without any issues denies current nausea. Denies any abdominal pain. However he has been eating well per his before this near syncopal episode he has not had a bowel movement since his urological procedure about a week ago. But he has been passing flatus. Patient had his last colonoscopy in [address] Aguilar and it was negative no polyps, patient did have an EGD in [address] Khanna which is recommend some Bentyl biopsy did showed some active chronic gastritis at that time. is concerned if scopes are really necessary as we have not checked her been able to check a fecal occult as he has not had a bowel movement yet. 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) Morbid obesity (Chronic) E66.01 Benign prostatic hypertrophy (Chronic) N40.0 Hypertension (Chronic) I10 Nephrotic syndrome (Chronic) N04.9 Allergies Sulfa (Sulfonamide Antibiotics) Allergy (Severe, Verified 06/30/18 12:21) Hives Home Medications: Ambulatory Orders Medication Instructions Recorded Sennosides/Docusate Sodium 1 ea PO PRN PRN 08/07/16 [Docusate Sodium-Senna Tablet] Surgical History: Surgical History (Last Updated 02/23/18 @ 15:41 by Kati Dorsey) Presence of surgically created arteriovenous shunt for hemodialysis Z99.2 LUE Surgical History: colectomy - bowel obstruction-remote Lives: Spouse/ Significant Other Smoking Status: Former smoker - *Family History Maternal History Items: No pertinent history Paternal History Items: No pertinent history Review of Systems Constitutional: Denies: Chills, Fever HEENT: Denies: Difficulty Swallowing Cardiovascular: Denies: Chest Pain Gastrointestinal: Reports: Constipation. Denies: Abdominal Pain Patient Problems: Active and Suspected Problems Near syncope (Acute) Hypotension (Acute) - Physical Exam General: Cooperative, No apparent distress HEENT: Atraumatic, Normocephalic Abdomen: Soft, Non Tender - No peritoneal signs, Non-Distended Vital Signs Temp Pulse Resp BP Pulse Ox 98.7 F 58 L 16 124/65 H 98 07/01/18 09:00 07/01/18 11:06 07/01/18 09:00 07/01/18 09:40 07/01/18 09:00 Oxygen Delivery Method Room Air Weight: 186 lb 15.232 oz Body Mass Index (BMI) 34.0 Orthostatic Vital Signs Start: 07/01/18 05:14 Freq: q24h Status: Active Protocol: Activity Type Activity Date Activity User E-Sign Co-Sign Detail Recorded Client Recorded Date Recorded By Document 07/01/18 05:14 JMP [id number] 07/01/18 05:21 [facility] Orthostatic Vitals Standing -Blood Pressure (90/60-120/80) 101/49 L -Extremity Use Right Arm -Pulse Rate (60-100) 118 H Sitting -Blood Pressure (90/60-120/80) 110/56 L Intake and Output for Last 24 Hours Intake Total 240 / 240 689.6 / 689.6 Output Total 50 / 50 110 / 110 Balance 190 / 190 579.6 / 579.6 Laboratory Tests Past 24 Hrs WBC RBC Hgb Hct MCV MCH MCHC RDW RDW Differential WBC 5.3 RBC 2.66 L Hgb 8.0 L Hct 25.4 L MCV 95.5 H MCH 30.1 MCHC 31.5 L RDW 15.5 H WBC RBC Hgb Pending Hct Pending MCV MCH MCHC RDW RDW Differential Plt Count MPV Immature Gran % (Auto) Assessment/Plan All Active Problems Transient expressive aphasia (Resolved) Near syncope (Acute) Hypotension (Acute) 78-year-old male admitted for weakness/fatigue, Status post recent TURP on 06/23 2018, anemia 1. Discussed with the that his anemia can be multifactorial due to his end-stage renal disease as well as his recent TURP and there could be a possibility of blood loss from the GI tract as well. Will await the fecal occult test-as I would not be able to scope sent to the earliest next week. If patient is stable he may be able to follow-up as an outpatient for an EGD/colonoscopy as he is due for screening colonoscopy since his last one was in 04/2008. I did review the procedure as well as risk including but not limited to bleeding, perforation, incomplete colonoscopy, poor prep, and anesthesia. Will continue to follow. Brooke Martinez M.D. Pager: [phone] [facility] [address] [place] [address], Outpatient [place], [address] [place] [address] Office: [phone] Code Visit Inpatient E AND M: [id number] Init Hosp L1 07/01/18 1224 <Electronically signed by Brooke Martinez MD> Date Brooke Martinez MD Cosigner Signature (if applicable): Date CC: Eduar Cabrera M.D.; Aleks Moore MD; Yesenia Crocker MD; Artur Reddy MD; Brooke Martinez MD Signed Observed: 07/01/2018 Status: F Source: [place] STOOL OCCULT BLOOD 12:[address] [facility] IFOB REPOSITORY STOB iFOB Occult Blood Negative Performed By: #### M100.7900 #### [facility] [address] [place], [address] HH, HEMOGLOBIN AND Collected: 07/01/2018 Status: F Source: [place] HEMATOCRIT 12:[address] [facility] REPOSITORY TYPE CODE TESTS RESULT OUT OF RANGE REFERENCE UNITS LAB L100.1300 13.0-16.5 g/dl Low HGB 7.7 LAB L100.1400 40-54 % Low HCT 24.6 Performed By: #### L100.0600 #### [facility] [address] [place], [address] HISTORY AND PHYSICAL Observed: 07/01/2018 Status: F Source: [place] EXAM 11:[address] [facility] REPOSITORY [facility] Medical Records Department [address] [place] [id number] History and Physical 06/30/18 1401 MR#: [id number] Acct: [id number] Name: ANSLEY OLIVAS Rep #: [id number] : 1940 78 From: Artur Reddy MD PCP: Yesenia Crocker MD Status: ADM REBEKAH Y Location: [place] [address] ADDENDUM by Soledad Page on 07/01/18 at 1157 Code Visit VISIT ADDITION TO DR. REDDY NOTE IN ERROR, MEANT FOR TOYIN MIGUEL PROGRESS NOTE. PLEASE CONTINUE WITH DR. REDDY BILLKURT NOTED. 07/01/18 1157 <Electronically signed by Soledad Page > Date Soledad Page cc: Soledad Page; Yesenia Crocker MD; Artur Reddy MD * Signed ADDENDUM by Soledad Page on 07/01/18 at 1051 Code Visit ATTENDING PHYSICIAN NOTE: I have seen and examined the patient independently and agree with the assessment, plan, history per Toyin Miguel as noted. Subjective: Patient with no acute events overnight since admission per self and per RN. He remains remarkably weak and fatigued. Less lightheadedness and dizziness than initially. This is been an ongoing intermittent issue. Discussed admission with Dr. Moore as recent TURP but noted minimal blood loss during operation as had recently worsening of his anemia but has trended down since the beginning of the year. He denies any dark black appearing stools. Given presentation, suspicious of alternate etiology for presentation and worsened status. Patient denies fevers, chills, nausea, emesis, abdominal pain, chest pain or dyspnea. VS: As noted below. Physical Examination: General: awake, alert, oriented x 3 and cooperative, seated upright in bed in no apparent distress. Skin: normal color, turgor, no icterus, cyanosis and occasional very staged ecchymoses. HEENT: AT/NC, EOMI, PERRLA, moderately dry MM. Lungs: Diminished bases BL, moderate effort, no rales, ronchi or wheezing. Heart: Regular rate and rhythm; no gallop, rub audible. Abdomen: soft, obese, NTTP, ND, normal BS, castillo in place, no clots, some ongoing mild hematuria. Extremities: no cyanosis, clubbing, + LUE AVF thrill. Neurological: patient awake, alert, oriented x 3; cognitive function intact; pupils equally reactive to light and accomodation; cranial nerves II-XII grossly normal, moving all 4 extremities, no focal deficits, strength severely globally decreased secondary to acute presentation. Psychiatric: affect appears normal, no acute evidence of depressive or anxiety feelings. Assessment and Plan: The patient is a 78 y/o M w/ PMHx: ESRD on HD, Obesity, Hx DVT, HTN, BPH s/p recent TURP per Dr. Moore w/ castillo in place w/ planned d/c at follow-up 07/06/18 who presents to the [facility] ED on 06/30/18 w/ history of ongoing progressively worsening weakness, debility, falls w/ associated lightheadedness, dizziness. (1) Acute on Chronic Anemia, Fe Deficiency, AOCD: Admission Hgb 8.1-->repeat 8, prior to this s/p TURP 9 but has been trending down from 11 for several months, poor historian on stool appearance, Fe panel consistent with Fe deficiency, given severity of debility, Fe transfusion given, will continue serial H+H, clears only, maintain on IV PPI, Surgery consulted for consideration of endoscopies for GI bleed as source. (2) Recent TURP secondary to BPH: s/p TURP per Dr. Moore 06/25/18, post-Hgb decreased from prior, maintain on cipro renally dosed per Dr. Moore discharge instructions, castillo in place, no obvious clots, UA w/ microscopic hematuria, OR operative blood loss noted to be minimal, may be primary etiology for acute anemia, but has had ongoing decrease since beginning of the year. (3) Debility, Weakness, Falls: Secondary to suspected recent TURP and #1, maintain on fall precautions, PT, OT, CM consulted. Cardiac enzymes unremarkable, no telemetry events, ECHO pending. Additional Co-morbidities: ESRD on HD: HD MWF, will consult Nephrology, will need to assist w/ transfusion w/ HD if needed. Hypertension: Continue home regimen w/ hold parameters. CODE status: Discussed CODE status at length including difference between FULL code, DNR-CCA and DNR-CC status. Following discussions about the differences in these status, and patient confirmed DNR-CCA, no intubation status. is his HCPOA. Living will in place. Advanced Care Planning Face to Face Time: 18 minutes. 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 Patient had normal assessment of dialysis and when he stepped in the house he felt dizzy, lightheaded, seems confused and disoriented, decreased responsiveness but no actual pass out. After that, his legs gave out and would almost fall forward but his caught him before he fell. He was brought in the ER where EKG shows sinus bradycardia at 58 bpm. Vitals in the ER shows low blood pressure 98/55 and had orthostatic vitals 96/56, heart rate 69 in supine and 98/53/68 in sitting posture. Patient denies fever, chills or signs and symptoms of UTI or bronchitis or pneumonia. Patient denies chest symptoms including chest pressure/pain, shortness of breath or palpitation or arrhythmia. Denies any external form of bleeding. He recently had prostate ablation/surgery 1 week ago and has catheter right up to his thigh. During previous admission for generalized weakness and transient aphasia, MRI brain does not show acute infarct or acute intracranial change. Carotid Doppler shows less than 50% stenosis in bilateral ICA. Patient is further admitted. 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) Morbid obesity (Chronic) Benign prostatic hypertrophy (Chronic) Hypertension (Chronic) Nephrotic syndrome (Chronic) Medical History: Medical History ESRD (end stage renal disease) (Acute) N18.6 DVT of bilateral internal jugular veins (Acute) Morbid obesity (Chronic) E66.01 Chronic renal disease, stage IV (Chronic) N18.4 Benign prostatic hypertrophy (Chronic) N40.0 Hypertension (Chronic) I10 Nephrotic syndrome (Chronic) N04.9 Allergies Sulfa (Sulfonamide Antibiotics) Allergy (Severe, Verified 06/30/18 12:21) Hives Home Medications: Ambulatory Orders Medication Instructions Recorded Sennosides/Docusate Sodium 1 ea PO PRN PRN 08/07/16 [Docusate Sodium-Senna Tablet] Surgical History: Surgical History (Last Updated 02/23/18 @ 15:41 by Kati Dorsey) Presence of surgically created arteriovenous shunt for hemodialysis Z99.2 LUE Surgical History: colectomy - bowel obstruction-remote Smoking Status: Former smoker - *Family History Maternal History Items: No pertinent history Paternal History Items: No pertinent history Review of Systems Constitutional: Reports: Weakness, Fatigue. Denies: Chills, Fever, Weight Change HEENT: Denies: Head Aches, Sinus Congestion, Sinus Drainage Cardiovascular: Denies: Chest Pain, Palpitations Respiratory: Denies: Cough, Shortness of breath at rest, Sputum production Gastrointestinal: Denies: Abdominal Pain, Nausea, Vomiting Genitourinary: Reports: - - Has Castillo catheter tied to his thigh. Denies: Dysuria Musculoskeletal: Denies: Joint Pain, Joint Tenderness Skin: Denies: Rash, Wounds Neurological: Reports: Balance problems. Denies: Focal weakness, Numbness, Tingling Psychiatric: Denies: Anxiety, Depression, Homicidal Ideations, Suicidal Ideations Hematologic/ Lymphatic: Denies: Easy Bruising, Easy Bleeding VTE Information - Inpt Only VTE Present on Admission: No VTE Mechan Device Prophylaxis: SCD's VTE Pharm Prophylaxis ordered?: No Reason prophylaxis not ordered:: Medical Contraindication - Anemia Patient Problems: Active and Suspected Problems Near syncope (Acute) Hypotension (Acute) - Physical Exam General: Oriented x3, Cooperative, Lethargic HEENT: Atraumatic, PERRLA, EOMI, Normocephalic Oral: Dry Mucosa Neck: Supple, No JVD, Negative Carotid Bruits Lungs: Clear to auscultation, No rhonchi, No wheeze, No rales, Diminished - In the left lung base Cardiovascular: Regular rate, Normal S1, Normal S2, No murmurs Abdomen: Bowel Sounds Present, Soft, Non Tender, - - Has Castillo catheter Extremities: No edema, Capillary Refill Less than 3 Seconds Skin: No rashes, No breakdown Musculoskeletal: No Tenderness to Palpation of Joints or Extremities, Arthritic Changes, Muscle Wasting Neurological: Cranial nerves II-XII grossly intact Psych/Mental Status: Normal Affect, Appropriate Vital Signs Temp Pulse Resp BP Pulse Ox 98.7 F 60 12 96/56 L 94 06/30/18 12:21 06/30/18 13:08 06/30/18 12:21 06/30/18 13:08 06/30/18 12:21 Assessment/Plan All Active Problems Transient expressive aphasia (Resolved) Near syncope (Acute) Hypotension (Acute) The patient is a 78 year old M with history of end-stage renal disease on dialysis on Thursday and Thursday, hypertension, BPH, last admission in May 25, 2018 for generalized weakness and transient aphasia secondary to metabolic encephalopathy came to ER after episode of dizziness and near pass out after dialysis today. Patient had normal assessment of dialysis and when he stepped in the house he felt dizzy, lightheaded, seems confused and disoriented, decreased responsiveness but no actual pass out. After that, his legs gave out and would almost fall forward but his caught him before he fell. He was brought in the ER where EKG shows sinus bradycardia at 58 bpm. Vitals in the ER shows low blood pressure 98/55 and had orthostatic vitals 96/56, heart rate 69 in supine and 98/53/68 in sitting posture. Patient denies fever, chills or signs and symptoms of UTI or bronchitis or pneumonia. Patient denies chest symptoms including chest pressure/pain, shortness of breath or palpitation or arrhythmia. Denies any external form of bleeding. He recently had prostate ablation/surgery 1 week ago and has catheter right up to his thigh. During previous admission for generalized weakness and transient aphasia, MRI brain does not show acute infarct or acute intracranial change. Carotid Doppler shows less than 50% stenosis in bilateral ICA. Magnesium and TSH ordered. 1. Near syncope most probably secondary to hypotension, possible over removal of fluid during dialysis: Patient is being admitted in PCU. cycle cardiac enzymes although patient denies any previous history of coronary artery disease, CHF or arrhythmia. 2D echo is ordered. IV fluid normal saline about 1 L at the rate of 100 mL/h. Watch intake/output. Orthostatic vitals tomorrow a.m. as the patient had carotid Doppler and MRI of brain last month I do not think he needs again 2. ESRD on hemodialysis: Consult nephrology to adjust the fluid amount removal during dialysis 3. BPH with recent surgery about 1 week ago as mentioned above: Patient had surgery by Dr. Moore. Follow-up as an outpatient. UA with reflex urine culture ordered. 4. Acute anemia with history of anemia of chronic disease with mild chronic thrombocytopenia: Patient recent hemoglobin shows 8.1/26.1. Platelet count is 124 k. Stool for occult blood ordered. pharmacological prophylaxis/anticoagulant is contraindicated. 5. Other chronic comorbidities include DVT of bilateral internal jugular vein; completed Coumadin and then discontinued, morbid obesity, hypertension and nephrotic syndrome: Multiple comorbidities complicates the present care and expect difficult and delay recovery Code Visit OBSV E AND M: [id number] Initial observation care L3 06/30/18 1434 <Electronically signed by Artur Reddy MD> Date Artur Reddy MD Cosigner Signature: Date (if applicable) CC: Soledad Page; Yesenia Crocker MD; Artur Reddy MD Signed CBC W/DIFF, AUTOMATED Collected: 07/01/2018 Status: F Source: F[place]I 5:[address] [facility] REPOSITORY TYPE CODE TESTS RESULT OUT OF RANGE REFERENCE UNITS LAB L100.1000 4.4-11.0 K/mm3 Normal WBC 5.3 LAB L100.1200 4.6-6.2 M/mm3 Low RBC 2.66 LAB L100.1300 13.0-16.5 g/dl Low HGB 8.0 LAB L100.1400 40-54 % Low HCT 25.4 LAB L100.1500 80-94 fL High MCV 95.5 LAB L100.1600 27.0-32.0 pg Normal MCH 30.1 LAB L100.1700 32-36 g/gl Low MCHC 31.5 LAB L100.1810 11.6-14.6 % High RDW CV 15.5 LAB L100.1820 35.1-43.9 fl High RDW SD 54.1 LAB L100.1900 150-450 K/mm3 Low PLT 135 LAB L100.2000 6.2-12.0 fl Normal MPV 8.4 LAB L100.2100 47-70 % Normal NEUT% 58.8 LAB L100.2200 19-41 % Normal LY% 27.5 LAB L100.2300 0-10 % High MONO% 11.4 LAB L100.2400 0-5 % Normal EO% 1.7 LAB L100.2500 0-1 % Normal BASO% 0.2 LAB L100.2550 0.0-0.9 % Normal IM GRAN % 0.400 Result Comment: IG% - Immature Granulocytes (promyelocytes, myelocytes and metamyelocytes) > 1% indicates that a LEFT SHIFT is Present. LAB L100.2620 2.0-7.7 X10 3/uL Normal Absolute Neut 3.1 LAB L100.2720 0.83-4.51 X10 3/ul Normal Absolute Lymph 1.45 Performed By: #### L100.0100 #### [facility] [address] [place], [place], [id number] THYROID STIM HORMONE Collected: 07/01/2018 Status: F Source: FALGUNI (TSH) 5:[address] [facility] REPOSITORY TYPE CODE TESTS RESULT OUT OF RANGE REFERENCE UNITS LAB L501.9520 0.358-3.74 uIU/mL Normal TSH 1.91 Performed By: #### L501.9520 #### [facility] [address] [place], [address] IRON+IRON BINDING Collected: 07/01/2018 Status: F Source: [place] CAPACITY 5:[address] [facility] REPOSITORY Order Comment: Comments: add to morning labs if possible Comments: add to morning labs if possible TYPE CODE TESTS RESULT OUT OF RANGE REFERENCE UNITS LAB L503.6075 250-450 ug/dL Low TIBC 182 LAB L503.6150 65-175 ug/dL Low IRON 36 LAB L503.6250 15.0-55.0 % IRON Normal SATURATION 19.8 Performed By: #### L503.6030, L503.6550 #### [facility] [address] [place], [address] FERRITIN Collected: 07/01/2018 Status: F Source: [place] 5:[address] [facility] REPOSITORY Order Comment: Comments: add to morning labs if possible Comments: add to morning labs if possible TYPE CODE TESTS RESULT OUT OF REFERENCE UNITS RANGE LAB L503.6550 26-388 ng/mL High FERRITIN 1081 Performed By: #### L503.6030, L503.6550 #### [facility] [address] [place], [address] URIC ACID Collected: 07/01/2018 Status: F Source: [place] 5:[address] [facility] REPOSITORY Order Comment: Comments: Add on to morning lab if possible. TYPE CODE TESTS RESULT OUT OF RANGE REFERENCE UNITS LAB L501.1400 3.5-7.2 mg/dL Normal URIC 6.8 Result Comment: The drugs N-Acetylcysteine and Metamizole may falsely depress this assay. Performed By: #### L501.1400 #### [facility] [address] [place], [address] TROPONIN-I Collected: 06/30/2018 Status: F Source: [place] 6:[address] [facility] REPOSITORY Order Comment: 'TROP' Serial specimen #1, #2 or #3: 3 TYPE CODE TESTS RESULT OUT OF RANGE REFERENCE UNITS LAB L501.4010 <0.045 ng/mL Normal 0.016 TROPONIN-I Result Comment: TROPONIN-I EXPECTED VALUES <0.045 Negative 0.045 - 0.590 Consistent with Cardiac Damage > OR = 0.600 Critical Value Not every elevated troponin is indicative of VT. These values should be used with clinical judgement in examining the patient's clinical picture for diagnosis. To establish a diagnosis of VT versus myocardial injury, there must be a demonstrated rise and/or fall in the troponin values, in addition to ischemic symptoms, EKG changes, new regional wall motion abnormality, and/or angiographical evidence. PLEASE NOTE: REFERENCE RANGES EDITED 18 Performed By: #### L501.4010 #### [facility] [address] [place], [address] URINALYSIS, COMPLETE Collected: 06/30/2018 Status: F Source: FALGUNI 5:[address] [facility] REPOSITORY Order Comment: COLOR OF URINE MAY AFFECT DIPSTICK RESULTS. How was Urine Obtained? CATHETER SPECIMEN TYPE CODE TESTS RESULT OUT OF RANGE REFERENCE UNITS LAB L400.3000 Yellow COLOR Normal Tamara LAB L400.3050 Clear Normal CLARITY Turbid LAB L400.3200 Normal mg/dl Normal GLUCOSE, UR Normal LAB L400.3300 Negative mg/dL Normal BILIRUBIN URINE Negative LAB L400.3400 Negative mg/dl Normal KETONE UR Negative LAB L400.3465 1.002-1.030 Normal SP.GR. DIPSTX 1.010 LAB L400.3550 5.0 - 8.0 pH UR Normal 7.0 LAB L400.3600 Negative mg/dl High PROT DIPSTX 500 LAB L400.3700 Normal mg/dl Normal UROBILI Normal LAB L400.3750 Negative Normal NITRITE UR Negative LAB L400.3780 Negative /ul High OCCULT BLOOD-UR 250 LAB L400.3800 Negative /ul High LEUK ESTERASE 500 LAB L400.4050 0-5 /hpf WBC Normal >100 SEEN Result Comment: Microscopic field is filled. Other elements may be obscured. LAB L400.4100 0-5 /hpf Normal RBC-UA 0 SEEN LAB L400.4150 0-5 /hpf Normal SQUAM EPI 0 SEEN LAB L400.4300 None Seen /hpf Normal BACTERIA 0 SEEN LAB L400.4350 <or=2+ /hpf Normal MUCUS, URINE 0 SEEN Performed By: #### L400.0001 #### [facility] [address] [place], [address] Observed: 06/30/2018 Status: F Source: [place] CULTURE, URINE 5:[address] [facility] REPOSITORY Urine Culture ORGANISM 1: Proteus mirabilis [place] Count 1000-10,000 Proteus mirabilis: REACTION Amoxacillin/Clavulanic Acid $ <=2 S Ampicillin $ <=2 S Ampicillin/Sulbactam $ <=2 S Cefazolin $ <=4 S Cefepime $ <=1 S Ceftriaxone $ <=1 S Ciprofloxacin $ 2 I Ertapenim $$$ <=0.5 S Gentamicin $ <=1 S Levofloxacin $ 2 S Nitrofurantoin $ 128 R Piperacillin/Tazobactam $$ <=4 S Tobramycin $ <=1 S Trimethoprim/Sulfametho $ <=20 S (NF) indicates non-formulary drug at [facility]. Approval by Infectious Disease Specialist required before non-formulary drugs may be ordered and/or dispensed. Performed By: #### M100.0650 #### [facility] [address] [place], [address] TROPONIN-I Collected: 06/30/2018 Status: F Source: [place] 3:[address] [facility] REPOSITORY Order Comment: 'TROP' Serial specimen #1, #2 or #3: 2 TYPE CODE TESTS RESULT OUT OF RANGE REFERENCE UNITS LAB L501.4010 <0.045 ng/mL Normal < 0.015 TROPONIN-I Result Comment: TROPONIN-I EXPECTED VALUES <0.045 Negative 0.045 - 0.590 Consistent with Cardiac Damage > OR = 0.600 Critical Value Not every elevated troponin is indicative of VT. These values should be used with clinical judgement in examining the patient's clinical picture for diagnosis. To establish a diagnosis of VT versus myocardial injury, there must be a demonstrated rise and/or fall in the troponin values, in addition to ischemic symptoms, EKG changes, new regional wall motion abnormality, and/or angiographical evidence. PLEASE NOTE: REFERENCE RANGES EDITED 18 Performed By: #### L501.4010 #### [facility] [address] [place], [address] EMERGENCY DEPARTMENT Observed: 06/30/2018 Status: F Source: [place] SUMMARY 1:[address] [facility] REPOSITORY [facility] Medical Records Department [address] [facility] [address] Emergency Department Summary 06/30/18 1333 MR#: [id number] Acct: [id number] Name: BRENDONANSLEY Rep #: [id number] : 1940 78 From: Verna Yi DO PCP: Yesenia Crocker MD Status: REG ER - ER Visit Summary Date of Service: 06/30/18 Chief Complaint: [Near syncope and weakness] History of Present Illness: The patient is a 78 M [presents the emergency department complaint of weakness and near syncope. Patient apparently was at dialysis this morning and the gives most of the history. Patient had finished dialysis and they were going up the steps to their home when he began falling forward and the ended up catching him so he did not injure himself. Patient was complaining of feeling sick at the time and states he started to pass out. Patient denied any chest pain or shortness of breath. On arrival patient states that he feels improved and really has no complaints at this time. Patient has had similar episodes in the past. gives history of prostate surgery for patient a week ago. Patient has not had any blood in the stool or black tarry stools. Patient was able to finish dialysis today. He has not had recent illness. Patient has had some chronic episodes of nausea and vomiting intermittently for time to time.] Physical Examination: [HEENT-PERRLA, EOMI. Cranial nerves II through XII grossly intact. TMs clear. Mucous membranes moist. No adenopathy. Cardiovascular-regular rate and rhythm with 2 out of 6 systolic ejection murmur Lungs-clear to auscultation, chest wall stable without crepitus or subcu emphysema Abdomen-normoactive bowel sounds, soft, nontender, no rebound or rigidity, no peritoneal signs. Extremities-intact 4, normal range of motion, normal pulses, atraumatic] Test Results: [EKG obtained showed a sinus rhythm with a ventricular rate of 58 bpm with no acute ST segment changes. CBC with differential showed white count 6.5, hemoglobin 8.1, hematocrit 26, platelets 124. History is unremarkable. BUN was 8 and creatinine 2.13. Troponin was 0.017. Orthostatic vital signs were positive and that patient could not stand.] Emergency Department Course and Treatment: [Patient received normal saline at 150 cc an hour.] Treatment Plan: [Admit] Disposition: [Admit] Impression: [Near syncope Generalized weakness Anemia Chronic renal failure] This note was generated with [employer] software. It may contain incorrect words, spelling, and punctuation that were not noted in review of the chart prior to signing ED Disposition - Plan for ED Patient: Chief Complaint: Syncope Referrals: Yesenia Crocker MD [Primary Care Provider] - What to do if you have Problems For any increased pain, shortness of breath, bleeding, nausea or vomiting, chest pain, or any unexpected problems, contact your Primary Care Provider. Call [facility] ([phone]) or report to the closest Emergency Room. Call 911 if necessary. 06/30/18 1336 <Electronically signed by Verna Yi DO> Date Remus Ungjeanie DO Cosigner Signature (If Indicated): Date CC: Yesenia Crocker MD CBC W/DIFF, AUTOMATED Collected: 06/30/2018 Status: F Source: [place]I 12:[address] [facility] REPOSITORY TYPE CODE TESTS RESULT OUT OF RANGE REFERENCE UNITS LAB L100.1000 4.4-11.0 K/mm3 Normal WBC 6.5 LAB L100.1200 4.6-6.2 M/mm3 Low RBC 2.76 LAB L100.1300 13.0-16.5 g/dl Low HGB 8.1 LAB L100.1400 40-54 % Low HCT 26.1 LAB L100.1500 80-94 fL High MCV 94.6 LAB L100.1600 27.0-32.0 pg Normal MCH 29.3 LAB L100.1700 32-36 g/gl Low MCHC 31.0 LAB L100.1810 11.6-14.6 % High RDW CV 15.5 LAB L100.1820 35.1-43.9 fl High RDW SD 52.9 LAB L100.1900 150-450 K/mm3 Low PLT 124 LAB L100.2000 6.2-12.0 fl Normal MPV 8.3 LAB L100.2100 47-70 % High NEUT% 74.8 LAB L100.2200 19-41 % Low LY% 15.1 LAB L100.2300 0-10 % Normal MONO% 8.8 LAB L100.2400 0-5 % Normal EO% 0.6 LAB L100.2500 0-1 % Normal BASO% 0.2 LAB L100.2550 0.0-0.9 % Normal IM GRAN % 0.500 Result Comment: IG% - Immature Granulocytes (promyelocytes, myelocytes and metamyelocytes) > 1% indicates that a LEFT SHIFT is Present. LAB L100.2620 2.0-7.7 X10 3/uL Normal Absolute Neut 4.9 LAB L100.2720 0.83-4.51 X10 3/ul Normal Absolute Lymph 0.98 Performed By: #### L100.0100 #### [facility] [address] [place], [place], [address] COMPREHENSIVE METABOLIC Collected: 06/30/2018 Status: F Source: [facility] 12:[address] [facility] REPOSITORY TYPE CODE TESTS RESULT OUT OF RANGE REFERENCE UNITS LAB L501.0100 74-106 mg/dL High GLU 113 Result Comment: Fasting Glucose result from 100 to 125 mg/dL suggests IMPAIRED HOMEOSTASIS per A.D.A. criteria. Please note revised GLUCOSE reference range effective 2017. LAB L501.1000 7-18 mg/dL Normal BUN 8 LAB L501.1100 0.70-1.30 mg/dL High CREAT,SERUM 2.13 Result Comment: The validity of the calculated GFR AND GFRAA in patients over 70 years has not been determined. Clinical correlation is essential. LAB L501.1110 >60 mL/min Low EST GFR 32 Result Comment: Non- GFR Calc LAB L501.1115 >60 mL/min Low EST GFR - AA 39 Result Comment: GFR Calc LAB L501.1255 ml/min Normal Estimated CRCL 21.72 LAB L501.1300 10-20 RATIO Low BUN/CRE 3.8 LAB L501.1500 6.4-8. g/dL Low 2 T PROT 6.3 LAB L501.1800 3.2-5. g/dL Low 0 ALB 1.9 LAB L501.1950 2.2-4. g/dL High 2 GLOB 4.4 LAB L501.2000 0.9-2. RATIO Low 4 A/G 0.4 LAB L501.2200 8.5-10 mg/dL Low .1 CA 7.7 LAB L501.4100 15-37 U/L Normal AST 27 LAB L501.4305 45-117 U/L High ALK P 127 LAB L501.4405 16-61 U/L Low ALT 14 LAB L501.4600 0.20-1 mg/dL Normal .00 T BILI 0.40 LAB L501.5300 136-14 mmol/L Normal 5 NA 138 LAB L501.5600 3.5-5. mmol/L Normal 1 K 3.7 LAB L501.5900 98-107 mmol/L Normal CL 100 LAB L501.6100 21.0-3 mmol/L Normal 2.0 CO2 31.0 LAB L501.6200 5-15 Normal GAP 7 Performed By: #### L500.4050, L501.2450, L501.4010 #### [facility] [address] [facility] [place], [place], [address] LIPASE Collected: 06/30/2018 Status: F Source: [place] 12:[address] [facility] REPOSITORY TYPE CODE TESTS RESULT OUT OF REFERENCE UNITS RANGE LAB L501.2450 73-393 U/L Low LIPASE 37 Performed By: #### L500.4050, L501.2450, L501.4010 #### [facility] [address] [place], [place], [address] TROPONIN-I Collected: 06/30/2018 Status: F Source: [place] 12:35 [facility] REPOSITORY TYPE CODE TESTS RESULT OUT OF RANGE REFERENCE UNITS LAB L501.4010 <0.045 ng/mL Normal 0.017 TROPONIN-I Result Comment: TROPONIN-I EXPECTED VALUES <0.045 Negative 0.045 - 0.590 Consistent with Cardiac Damage > OR = 0.600 Critical Value Not every elevated troponin is indicative of VT. These values should be used with clinical judgement in examining the patient's clinical picture for diagnosis. To establish a diagnosis of VT versus myocardial injury, there must be a demonstrated rise and/or fall in the troponin values, in addition to ischemic symptoms, EKG changes, new regional wall motion abnormality, and/or angiographical evidence. PLEASE NOTE: REFERENCE RANGES EDITED 18 Performed By: #### L500.4050, L501.2450, L501.4010 #### [facility] [address] [place], [address] MAGNESIUM Collected: 06/30/2018 Status: F Source: [place] 12:[address] [facility] REPOSITORY Order Comment: OK TO ADD ON PER RN TYPE CODE TESTS RESULT OUT OF RANGE REFERENCE UNITS LAB L501.5200 1.6-2.6 mg/dL Normal MG 1.9 Performed By: #### L501.5200 #### [facility] [address] [place], [address] DISCHARGE SUMMARY Observed: 06/26/2018 Status: F Source: [place] 8:[address] [facility] REPOSITORY [facility] Medical Records Department [address] [facility] [place] [address] Discharge Summary 06/26/18 0824 MR#: [id number] Acct: [id number] Name: BRENDONANSLEY Rep #: [id number] : 1940 78 From: Aleks Moore MD PCP: Yesenia Crocker MD Status: ADM IN Location: [place] [address] Discharge Date and Diagnosis Date of Admission: 06/23/18 Date of Discharge: 06/26/18 - Secondary Discharge Diagnosis Chronic Problems Morbid obesity (Chronic) Chronic renal disease, stage IV (Chronic) Benign prostatic hypertrophy (Chronic) Hypertension (Chronic) Nephrotic syndrome (Chronic) Hospital Course and Treatment Nephrology Operations: None, TURP Summary of Care Provided: The patient is a 78 year old male with multiple medical problems on dialysis who presents to the hospital for dilation of urethral stricture was also found to have a very large prostate so underwent a direct vision internal urethrotomy and also transurethral resection of the prostate catheter was placed fairly heavy bleeding the first 2 days while in the hospital then the bleeding slowed down and finally on the postoperative day #3 bleeding stopped the urine was clear he received dialysis while he was in the hospital is back on his schedule. Urine looks clear today we will discharge him home with Cipro 250 mg once a day he will go home with a catheter the three-way is plugged and he can follow-up in my office in about 2 weeks to remove the catheter. Discharge Diet: Light diet - advance as tolerated Discharge Activity: May Not Drive May shower in (days): 1 Call your doctor if your incision/area has: Continuous Slow Oozing, Sudden Increased Bleeding, Increased Pain/ Swelling, Increased Redness, Foul Smelling Discharge, Swelling at the incision site Call your doctor if you observe: Fever of 101 or Higher Suture Line Care: Avoid Pulling/Pushing, Avoid Pinching/Bending Catheter: Castillo to leg bag, Castillo to large bag Drain: Proctor Home Medications: Medications to take at Discharge Sennosides/Docusate Sodium [Docusate Sodium-Senna Tablet] 1 ea PO PRN PRN 08/07/16 Tamsulosin HCl [Flomax] 0.4 mg PO BID 10/23/16 Metoprolol Tartrate [Lopressor (beta keila)] 50 mg PO BID tab 11/03/16 Nepro Liquid [Nepro Carb Steady] 120 ml PO 4X/DAY liquid 05/26/18 Midodrine HCl [Proamatine] 10 mg PO TID 06/17/18 Oxycodone [Oxyir] 5 mg PO Q4H PRN PRN 06/17/18 Sevelamer HCl [Renagel] 800 mg PO TIDCM 06/17/18 Ciprofloxacin [Cipro] 250 mg PO DAILY #14 tab 06/26/18 Following Prescrptions Were Given to Patient: Ciprofloxacin [Cipro] 250 mg PO DAILY #14 tab Primary Care Physician: Yesenia Crocker MD [Primary Care Provider] - Please Follow Up With: Aleks Moore MD When: in 2 weeks, please call to make an appointment. Medical Necessity - Tobacco Use Smoking Status: Never smoker Tobacco Use: Non-smoker Meaningful Use Info Meaningful Use Diagnoses (Choose all that apply): None applicable 06/26/18825 <Electronically signed by Aleks Moore MD> Date Aleks Moore MD Cosigner Signature (if applicable): Date CC: Aleks Moore MD; Yesenia Crocker MD Signed DISCHARGE INSTRUCTION Observed: 06/26/2018 Status: F Source: [place]I 8:[address] [facility] REPOSITORY [facility] Medical Records Department [address] [place] [address] Instructions for Home/Discharge Instructions 06/26/18 0821 MR#: [id number] Acct: [id number] Name: ANSLEY OLIVAS Rep #: [id number] : 1940 78 From: Aleks Moore MD PCP: Yesenia Crocker MD Status: ADM IN Discharge Diet: Light diet - advance as tolerated Discharge Activity: May Not Drive May shower in (days): 1 Call your doctor if your incision/area has: Continuous Slow Oozing, Sudden Increased Bleeding, Increased Pain/ Swelling, Increased Redness, Foul Smelling Discharge, Swelling at the incision site Call your doctor if you observe: Fever of 101 or Higher Suture Line Care: Avoid Pulling/Pushing, Avoid Pinching/Bending Catheter: Castillo to leg bag, Castillo to large bag Drain: Proctor Allergies/Adverse Reactions: Allergies Sulfa (Sulfonamide Antibiotics) Allergy (Severe, Verified 06/06/18 06:06) Hives Medications to take at Discharge Sennosides/Docusate Sodium [Docusate Sodium-Senna Tablet] 1 ea PO PRN PRN 08/07/16 Tamsulosin HCl [Flomax] 0.4 mg PO BID 10/23/16 Metoprolol Tartrate [Lopressor (beta keila)] 50 mg PO BID tab 11/03/16 Nepro Liquid [Nepro Carb Steady] 120 ml PO 4X/DAY liquid 05/26/18 Midodrine HCl [Proamatine] 10 mg PO TID 06/17/18 Oxycodone [Oxyir] 5 mg PO Q4H PRN PRN 06/17/18 Sevelamer HCl [Renagel] 800 mg PO TIDCM 06/17/18 Ciprofloxacin [Cipro] 250 mg PO DAILY #14 tab 06/26/18 Primary Care Physician: Yesenia Crocker MD [Primary Care Provider] - Test Results: Test results from this visit will be discussed in further detail at your follow-up appointment, if applicable. Please Follow Up With: Aleks Moore MD When: in 2 weeks, please call to make an appointment. 06/26/18 0823 <Electronically signed by Aleks Moore MD> Date Aleks Moore MD CC: Yesenia Crocker MD; Jose Guadalupe Mayo MD HEPATITIS B SURFACE Collected: 06/24/2018 Status: F Source: [place] AG 2:[address] [facility] REPOSITORY TYPE CODE TESTS RESULT OUT OF RANGE REFERENCE UNITS LAB L3100.0400 Negative Normal HB Negative SURF AG Result Comment: Performed at: [address] [id number] Rn Nicu: Mohsen Werner PhD, Phone: [phone] Performed By: #### L3100.0390, L3100.0528 #### [facility] (refer to report for specific site) refer to report for address and phone number HEP B SURFACE Collected: 06/24/2018 Status: F Source: [place] ANTIBODIES 2:[address] [facility] REPOSITORY TYPE CODE TESTS RESULT OUT OF RANGE REFERENCE UNITS LAB L3100.0528 . Normal Hep B Non Reactive Leah AB Result Comment: Non Reactive: Inconsistent with immunity, less than 10 mIU/mL Reactive: Consistent with immunity, greater than 9.9 mIU/mL Performed By: #### L3100.0390, L3100.0528 #### [facility] (refer to report for specific site) refer to report for address and phone number CBC W/DIFF, AUTOMATED Collected: 06/24/2018 Status: F Source: [place] 6:[address] [facility] REPOSITORY TYPE CODE TESTS RESULT OUT OF RANGE REFERENCE UNITS LAB L100.1000 4.4-11.0 K/mm3 Normal WBC 4.4 LAB L100.1200 4.6-6.2 M/mm3 Low RBC 2.95 LAB L100.1300 13.0-16.5 g/dl Low HGB 9.0 LAB L100.1400 40-54 % Low HCT 28.1 LAB L100.1500 80-94 fL High MCV 95.3 LAB L100.1600 27.0-32.0 pg Normal MCH 30.5 LAB L100.1700 32-36 g/gl Normal MCHC 32.0 LAB L100.1810 11.6-14.6 % High RDW CV 15.1 LAB L100.1820 35.1-43.9 fl High RDW SD 50.6 LAB L100.1900 150-450 K/mm3 Low PLT 100 LAB L100.2000 6.2-12.0 fl Normal MPV 9.2 LAB L100.2100 47-70 % Normal NEUT% 60.3 LAB L100.2200 19-41 % Normal LY% 23.9 LAB L100.2300 0-10 % High MONO% 13.1 LAB L100.2400 0-5 % Normal EO% 2.0 LAB L100.2500 0-1 % Normal BASO% 0.5 LAB L100.2550 0.0-0.9 % Normal IM GRAN % 0.200 Result Comment: IG% - Immature Granulocytes (promyelocytes, myelocytes and metamyelocytes) > 1% indicates that a LEFT SHIFT is Present. LAB L100.2620 2.0-7.7 X10 3/uL Normal Absolute Neut 2.7 LAB L100.2720 0.83-4.51 X10 3/ul Normal Absolute Lymph 1.06 Performed By: #### L100.0100 #### [facility] [address] [facility] [place], [address] CONSULTATION Observed: 06/23/2018 Status: F Source: [place] 6:[address] [facility] REPOSITORY [facility] Medical Records Department [address] [facility] [address] Consultation 06/23/18 1800 MR#: [id number] Acct: [id number] Name: BRENDONANSLEY Rep #: [id number] : 1940 78 From: Mary Beth Cabrera MD PCP: Yesenia Crocker MD Status: ADM REBEKAH Y Location: [place] [address]-1 Problem List (1) ESRD (end stage renal disease) Status: Acute Consultation - Renal 06/23/18 PCP/ Referring MD: Requesting physician: [] Primary care physician: Yesenia Crocker Reason for Consultation:: ESRD - History of Present Illness History of Present Illness: The patient is a 78 year old M well known to us. ESRD on HD TTS schedule. last HD was yesterday. still voids. recently complaining of difficulty voiding. Saw urology. Had prostrate resection today. denies any complaints right now. on CBI. - Allergies Allergies: Allergies Sulfa (Sulfonamide Antibiotics) Allergy (Severe, Verified 06/06/18 06:06) Hives - Current Medications Current Medications: Current Medications Acetaminophen (Tylenol) 325 mg PO Q4H PRN PRN PRN Reason: Pain Al Hydroxide/Mg Hydroxide (Mylanta Ii) 30 ml PO Q4H PRN PRN PRN Reason: Heartburn Ciprofloxacin HCl (Cipro) 250 mg PO DAILY [facility] Docusate Sodium (Colace) 100 mg PO BID [facility] Sodium Chloride () 1,000 mls @ 35 mls/hr IV .[id number] [facility] Last Admin: 06/23/18 16:40 Dose: 35 mls/hr Ibuprofen (Motrin) 600 mg PO Q6H PRN PRN PRN Reason: PAIN Metoprolol Tartrate (Lopressor (Beta Keila)) 50 mg PO BID [facility] Midodrine (Proamatine) 10 mg PO TID [facility] Last Admin: 06/23/18 16:00 Dose: Not Given Nutritional Formula (Nepro Carb Steady) 120 ml PO 4X/DAY [facility] Last Admin: 06/23/18 17:17 Dose: 120 ml Ondansetron HCl (Zofran) 4 mg IV Q6H PRN PRN PRN Reason: Nausea Oxycodone HCl (Oxyir) 5 mg PO Q4H PRN PRN PRN Reason: Pain Pantoprazole Sodium (Protonix) 40 mg PO DAILY [facility] Senna/Docusate Sodium (Senokot-S, Inocencia-Colace) 1 tablet PO DAILY PRN PRN PRN Reason: Constipation Sevelamer Carbonate (Renvela) 800 mg PO TIDCM [facility] Last Admin: 06/23/18 17:15 Dose: 800 mg Sodium Chloride () 5 - 30 ml IV UD PRN PRN Reason: SALINE FLUSH Tamsulosin HCl (Flomax) 0.4 mg PO BID [facility] Throat Lozenges (Cepacol Sore Throat Lozenge) 1 lozenge MUCOUS MEM Q2H PRN PRN PRN Reason: SORE THROAT - Past Medical History Past Medical History (Chronic Problems): Chronic Problems Morbid obesity (Chronic) Chronic renal disease, stage IV (Chronic) Benign prostatic hypertrophy (Chronic) Hypertension (Chronic) Nephrotic syndrome (Chronic) - Past Surgical History Surgical History: colectomy - bowel obstruction-remote - Social History Smoking Status: Never smoker - Family History Maternal History Items: No pertinent history Paternal History Items: No pertinent history Review of Systems Constitutional: Denies: Chills, Fever, Weight Change HEENT: Denies: Head Aches, Sinus Congestion, Sinus Drainage Cardiovascular: Denies: Chest Pain, Palpitations Respiratory: Denies: Cough, Shortness of breath at rest, Sputum production Gastrointestinal: Denies: Abdominal Pain, Nausea, Vomiting Genitourinary: Denies: Dysuria Musculoskeletal: Denies: Joint Pain, Joint Tenderness Skin: Denies: Rash, Wounds Neurological: Denies: Numbness, Tingling, Focal weakness Psychiatric: Denies: Anxiety, Depression, Homicidal Ideations, Suicidal Ideations Hematologic/ Lymphatic: Denies: Easy Bruising, Easy Bleeding - Physical Exam General: Alert, Oriented x3, Cooperative HEENT: Atraumatic, PERRLA, EOMI, Normocephalic Neck: Supple, No JVD, Negative Carotid Bruits Lungs: Clear to auscultation, Normal air movement Cardiovascular: Regular rate, No murmurs Abdomen: Bowel Sounds Present, Soft, Non Tender Extremities: No edema, Capillary Refill Less than 3 Seconds Skin: No rashes, No breakdown Musculoskeletal: No Tenderness to Palpation of Joints or Extremities Neurological: Cranial nerves II-XII grossly intact Psych/Mental Status: Normal Affect, Appropriate Vital Signs Temp Pulse Resp BP Pulse Ox 97.6 F L 48 L 16 137/60 H 100 06/23/18 16:07 06/23/18 16:07 06/23/18 16:07 06/23/18 16:07 06/23/18 16:07 Oxygen Delivery Method Room Air Weight: 85.3 kg Body Mass Index (BMI) 35.5 Finger Stick Blood Glucose 116 Intake and Output for Last 24 Hours Intake Total 500 / 500 Output Total 900 / 900 Balance -400 / -400 Laboratory Tests Past 24 Hrs Sodium 138 Potassium 4.8 Chloride 103 Carbon Dioxide 27.0 Assessment/Plan All Active Problems Generalized weakness (Acute) Recurrent falls (Acute) Transient expressive aphasia (Acute) ESRD (end stage renal disease) (Acute) DVT of bilateral internal jugular veins (Acute) ESRD. HD TTS schedule. called dialysis staff. arranged for dialysis tomorrow Anemia. DEAN with HD. no heparin as he just had surgery Urinary retention. s/p prostrate surgery will follow 06/23/18 1820 <Electronically signed by Mary Beth Cabrera MD> Date Mary Beth Cabrera MD Cosigner Signature (if applicable): Date CC: Aleks Moore MD; Yesenia Crocker MD; Jose Guadalupe Mayo MD Signed BASIC METABOLIC Collected: 06/23/2018 Status: F Source: [place] PROFILE (BMP) 3:[address] [facility] REPOSITORY Order Comment: Comments: in pacu TYPE CODE TESTS RESULT OUT OF RANGE REFERENCE UNITS LAB L501.0100 74-106 mg/dL Normal GLU 88 Result Comment: Please note revised GLUCOSE reference range effective 2017. LAB L501.1000 7-18 mg/dL High BUN 26 LAB L501.1100 0.70-1.30 mg/dL High CREAT,SERUM 5.36 Result Comment: The validity of the calculated GFR AND GFRAA in patients over 70 years has not been determined. Clinical correlation is essential. LAB L501.1110 >60 mL/min Low EST GFR 11 Result Comment: Non- GFR Calc LAB L501.1115 >60 mL/min Low EST GFR - AA 13 Result Comment: GFR Calc LAB L501.1255 ml/min Normal Estimated CRCL 8.27 LAB L501.1300 10-20 RATIO Low BUN/CRE 4.9 LAB L501.2200 8.5-10. mg/dL Normal 1 CA 9.6 LAB L501.5300 136-145 mmol/L Normal NA 138 LAB L501.5600 3.5-5.1 mmol/L Normal K 4.8 LAB L501.5900 98-107 mmol/L Normal CL 103 LAB L501.6100 21.0-32 mmol/L Normal .0 CO2 27.0 LAB L501.6200 5-15 Normal GAP 8 Performed By: #### L500.2500 #### [facility] [address] [place], [address] OPERATIVE REPORT Observed: 06/23/2018 Status: F Source: [place] 2:[address] [facility] REPOSITORY [facility] Medical Records Department [address] [place] [address] Operative Report 06/23/18 1358 MR#: [id number] Acct: [id number] Name: ANSLEY OLIVAS Rep #: [id number] : 1940 78 From: Aleks Moore MD PCP: Yesenia Crocker MD Status: [facility] Y Location: [place] [address] Report of Operation Date of Procedure: 06/23/18 Pre-Operative Diagnosis: Urethral stricture and BPH with obstruction Post-Operative Diagnosis: Same Surgery/Procedure Performed:: Cystoscopy with direct vision internal urethrotomy, transurethral resection of the prostate Description of Surgical Findings:: 78-year-old male who comes to the office been having a lot of difficulties going to the bathroom a lot of pain when he urinates, and prior cystoscopies found have a urethral stricture this is been dilated I believe he still has a stricture now. He is on dialysis but he still makes lots of urine and had a lot of pain and difficulty emptying his bladder so working to proceed today with a cystoscopy incision and direct vision internal urethrotomy of the stricture and a transurethral resection of the prostate. 78-year-old male taken back to the operating room after smooth induction of general anesthesia he was placed supine on the table the legs in dorsal lithotomy position penis and testicles were prepped and draped in usual sterile fashion went into the bladder with a 21 Ethiopian rigid cystourethroscope and a cystoscopy along the course of the length the ureter and in the bulbar urethra I found a pinpoint urethral stricture I then used the rigid urethrotome and used a knife blade on the urethrotome and then a cold knife incision of his urethral stricture in the bulbar urethra he had a dense stricture cut all the way through the urethra into the sponges And spongiosa tissue to a cart cut through the scar tissue I then was able to get into the prostate prostate had a very high riding bladder neck and bilateral obstruction with significant amount of obstruction into the bladder. I then put in the 24 Ethiopian noncontinuous flow resectoscope and then started resecting the prostate I first resected the really high riding bladder neck bladder neck tissue prosthetic tissue down to the fibers of the bladder neck I then circumferentially red resected all the way around the bladder neck to get any extending tissue into the bladder I then resected back to the Michelle the distance was only about the loop loop length and a half back to the Michelle resected the right lobe of the prostate all the way around to the apex and all the way to the roof resect the left lobe the prostate on the right and the apex into the roof open up a nice channel elect out all the chips I then switched over to the button and smooth out the resection from the sphincter all the way into the bladder neck smoothing out the flapping tissue at the apex to make sure that there was a nice open channel all the way into the bladder once I had a nice smooth resection there is still a significant amount of bleeding but slow down put a 22 Ethiopian catheter and continuous bladder irrigation patient's anesthetic was reversed and the plan is to keep in the hospital probably a day or 2 he will need dialysis while he is in the hospital. Will consult nephrology for dialysis services. Patient anesthetic is currently being reversed. Type of Anesthesia:: General Drains: [address] cast[address] - Admit VTE Documentation VTE Present on Admission: No VTE Mechan Device Prophylaxis: SCD's VTE Pharm Prophylaxis ordered?: No Reason prophylaxis not ordered:: Treatment Not Indicated 06/23/18 1402 <Electronically signed by Aleks Moore MD> Date Aleks Moore MD CC: Aleks Moore MD; Yesenia Crocker MD Signed PROSTATE, TUR Observed: 06/23/2018 Status: F Source: [place] 12:[address] [facility] REPOSITORY Patient: ANSLEY OLIVAS : 1940 (78/M) Acct Num: [id number] Phys: Aleks Moore MD Unit Num: [id number] Loc: MS2 [id number] Specimen: [id number] Received: 06/23/181516 Spec Type: TURP TISSUES TISSUES: Prostate, NOS COMMENT Immunohistochemistry ([id number]) supports the above diagnosis and shows lymphoid aggregates to be polytypic in nature, favor benign. GROSS DESCRIPTION Received is one container labeled with the patient's name and designated prostate tissue. The specimen consists of multiple irregular fragments of pink-fonseca, rubbery, soft tissue that in aggregate weigh 13.8 gm and measure in aggregate 6 x 6 x 2.5 cm. The entire specimen is submitted in 13 cassettes. / ANGEL:damian 06/24/18 TC:5 CPT: 60135 HEADER OPERATION: Cysto, TURP PRE-OP DIAGNOSIS: Urethral stricture and BPH with obstruction TISSUE SUBMITTED: Prostate tissue MICROSCOPIC DESCRIPTION Slides are reviewed. MICROSCOPIC DIAGNOSIS Prostate tissue, TUR: Benign prostatic hyperplasia, glandular and stromal type. Chronic inflammation and lymphoid aggregate formation, favor benign. SJ:damian 06/25/18 Signed Jeromy Ortiz 06/28/18 <signature on file> Performed By: #### PPROS #### [facility] [place], [address] IMMUNOHISTOCHEMISTRY Observed: 06/23/2018 Status: F Source: [place] 12:[address] [facility] REPOSITORY Patient: ANSLEY OLIVAS : 1940 (78/M) Acct Num: [id number] Phys: Aleks Moore MD Unit Num: [id number] Loc: MS2 [id number] Specimen: [id number] Received: 06/25/181255 Spec Type: IMMUNO TISSUES TISSUES: Prostate, NOS SPECIMEN INFORMATION: Tissue Source: Prostate tissue Clinical Info: Urethral stricture and BPH with obstruction Specimen Number: [id number] #7 CPT code: 32357, 21704 x5 METHODOLOGY: Deparaffinized sections of prefer/formalin-fixed tissue or PAP/DQ stained slides are incubated with monoclonal/polyclonal antibodies/oligonucleotide probes. Localization is made via biotin free immunoperoxidase method. Appropriate controls are performed and reacted as expected. Results on target cell population are indicated in the following table: RESULTS: ANTIBODY / CLONE RESULT Block 7 CD3 (PS1) positive CD5 (SP10) positive CD20 (L26) positive CD79a (11E3) positive CD45 (RP2/18) positive BCL-2 (bcl-2/100/D5) negative, in germinal center These tests were developed and their performance characteristics determined by [facility]. They may not have been cleared or approved by the U.S. Food and Drug Administration. The FDA has determined that such clearance or approval is not necessary. INTERPRETATION: Prostate tissue, TUR: Lymphoid aggregates, polytypic in nature,favor benign. SJ:damian 06/28/18 [facility] [address] [address] Signed Jeromy Ortiz 06/28/18 <signature on file> Performed By: #### PIMM #### [facility] [address] [place] [address]. [place], [place], [address] CBC-COMPLETE BLOOD CNT Collected: 06/17/2018 Status: F Source: [place] NO DIFF 2:[address] [facility] REPOSITORY TYPE CODE TESTS RESULT OUT OF RANGE REFERENCE UNITS LAB L100.1000 4.4-11.0 K/mm3 Low WBC 3.7 LAB L100.1200 4.6-6.2 M/mm3 Low RBC 3.82 LAB L100.1300 13.0-16.5 g/dl Low HGB 11.5 LAB L100.1400 40-54 % Low HCT 36.3 LAB L100.1500 80-94 fL High MCV 95.0 LAB L100.1600 27.0-32.0 pg Normal MCH 30.1 LAB L100.1700 32-36 g/gl Low MCHC 31.7 LAB L100.1810 11.6-14.6 % High RDW CV 15.5 LAB L100.1820 35.1-43.9 fl High RDW SD 52.0 LAB L100.1900 150-450 K/mm3 Low PLT 105 LAB L100.2000 6.2-12.0 fl Normal MPV 9.4 Performed By: #### L100.0500 #### [facility] [address] [place], [place], [address] BASIC METABOLIC Collected: 06/17/2018 Status: F Source: [place] PROFILE (BMP) 2:[address] [facility] REPOSITORY TYPE CODE TESTS RESULT OUT OF RANGE REFERENCE UNITS LAB L501.0100 74-106 mg/dL High GLU 116 Result Comment: Fasting Glucose result from 100 to 125 mg/dL suggests IMPAIRED HOMEOSTASIS per A.D.A. criteria. Please note revised GLUCOSE reference range effective 2017. LAB L501.1000 7-18 mg/dL Normal BUN 18 LAB L501.1100 0.70-1.30 mg/dL High CREAT,SERUM 3.97 Result Comment: The validity of the calculated GFR AND GFRAA in patients over 70 years has not been determined. Clinical correlation is essential. LAB L501.1110 >60 mL/min Low EST GFR 16 Result Comment: Non- GFR Calc LAB L501.1115 >60 mL/min Low EST GFR - AA 19 Result Comment: GFR Calc LAB L501.1300 10-20 RATIO Low BUN/CRE 4.5 LAB L501.2200 8.5-10.1 mg/dL Normal CA 9.9 LAB L501.5300 136-145 mmol/L Normal NA 137 LAB L501.5600 3.5-5.1 mmol/L Normal K 3.9 LAB L501.5900 98-107 mmol/L Normal CL 99 LAB L501.6100 21.0-32.0 mmol/L Normal CO2 30.0 LAB L501.6200 5-15 Normal GAP 8 Performed By: #### L500.2500 #### [facility] [address] [place], [place], [address] PROGRESS Observed: 06/10/2018 Status: COMPLETED Source: [place] 2:44 PM [facility] [place] REPOSITORY HNO ID: [id number] Author: Yesenia Crocker Service: (none) Author Type: Physician Type: Progress Notes Filed: 06/30/2018 3:16 AM Note Text: Patient presents with: Recheck: 3 month follow up SUBJECTIVE: Ansley Olivas is a 78 year old year old gentleman here today for 3 month follow up appointment for review of medical conditions. Reviewed that was in ER recently because of fall. Hit right side of head and had abrasion frontal and tempoparietal area. Was in hospital earlier in May for concerns of trouble with speech and worried about possible stroke. Coumadin stopped along with several other meds. Main concern of : Urinary urgency even though bladder empties. Nocturia every hour or so because of pressure sensation even though not much urine. Will see Dr. Moore for follow up-- plans to call to get appointment. Already ruled out UTI and urinary retention at the hospital according to . Had to go to bathroom while at appointment. 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 Jose Ferreira - Hep C w/o coma, chronic (HCC) Grade 1 Stage I - Kidney disease - Mohs for BCC, left cheek --08 02/03/2008 - Morbid obesity (HCC) - Renal failure 11/03/2016 - SCAR AND FIBROSIS OF SKIN 07/19/2008 - SOLAR LENGINES///DYSCHROMIA OTHER 07/19/2008 - Unspecified essential hypertension Current Outpatient Prescriptions: amLODIPine (NORVASC) 5 mg tablet DAILY metoprolol tartrate, short acting, (LOPRESSOR) 50 mg tablet Take 1 tablet by mouth twice daily. senna-docusate (SENNA PLUS) 8.6-50 mg per tablet Take 1 tablet by mouth once daily. tamsulosin ER (FLOMAX) 0.4 mg cp24 Take 2 capsules by mouth once daily at 5:30 Ammonium,Pot.and Sodium Lactates (AMLACTIN) crea Apply 1 application to affected area once daily. COMPOUNDED PRESCRIPTION Front wheeled walked with seat attachmentDx (M15.9) Generalized osteoarthritis; (R53.1) Weakness, (R26.81) Gait instability xtwrhfjvliIOZVQ-xsbtss-dyeazoauw (BMX 1:1:1) 1:1:1 liqd Gargle 5ml and swallow every 4 hours as needed. May use 20 minutes prior to eating COMPOUNDED PRESCRIPTION Home BP cuff, Dx: HTN labile oxyCODONE IR (ROXICODONE) 5 mg immediate release tablet Take 1 tablet by mouth every 8 hours as needed for Pain for up to 30 days.Earliest Fill Date: 04/08/18 No current facility-administered medications for this visit. OBJECTIVE: BP 110/60 Pulse 72 Resp 20 Wt 86.6 kg (191 lb) BMI 34.93 kg/m? Last 5 Encounter Wt Readings: Date: Wt: 06/10/2018 86.6 kg (191 lb) 03/09/2018 91.6 kg (202 lb) 02/19/2018 92.5 kg (204 lb) 01/21/2018 92.1 kg (203 lb) 01/12/2018 92.5 kg (204 lb) Patient is alert, oriented times 3, no apparent distress, affect is bright, reactive. Abrasions on right side of face and top of head noted--helaing Heart: Regular rate, rhythm, no murmurs, gallops, rubs. Lungs: Clear to auscultation, bilaterally, breathing non labored. Ext: No cyanosis, clubbing, or edema except small amount . Prior labs: Component Latest Ref Rng AND Units 08/20/2016 10/07/2016 01/05/2017 02/25/2017 12/08/2017 WBC 3.70 - 11.00 k/uL 8.48 5.19 RBC 4.20 - 6.00 m/uL 4.38 3.86 (L) Hemoglobin 13.0 - 17.0 g/dL 13.2 11.1 (L) Hematocrit 39.0 - 51.0 % 39.5 36.4 (L) MCV 80.0 - 100.0 fL 90.2 94.3 MCH 26.0 - 34.0 pG 30.1 28.8 MCHC 30.5 - 36.0 g/dL 33.4 30.5 RDW-CV 11.5 - 15.0 % 15.1 (H) 16.1 (H) Platelet Count 150 - 400 k/uL 226 184 MPV 9.0 - 12.7 fL 10.3 9.4 Neut% % 63.6 Abs Neut (ANC) 1.45 - 7.50 k/uL 3.30 Lymph% % 25.4 Abs Lymph 1.00 - 4.00 k/uL 1.32 Clare% % 8.7 Abs Clare 0.00 - 0.86 k/uL 0.45 Eosin% % 2.1 Abs Eosin 0.00 - 0.45 k/uL 0.11 Baso% % 0.2 Abs Baso 0.00 - 0.10 k/uL 0.01 Nucleated Reds 0 /100 WBC 0.0 Absolute nRBC k/uL 0.00 Diff Type Auto Diff WBC, [place] 3.70 - 11.00 k/uL 4.86 RBC, [place] 4.20 - 6.00 m/uL 4.04 (L) Hemoglobin, [place] 13.0 - 17.0 g/dL 12.0 (L) Hematocrit, [place] 39.0 - 51.0 % 38.3 (L) MCV, [place] 80.0 - 100.0 fL 94.8 MCH, [place] 26.0 - 34.0 pg 29.7 MCHC, [place] 30.5 - 36.0 g/dL 31.3 RDW, [place] 11.5 - 15.0 % 14.4 Platelet Cnt, [place] 150 - 400 k/uL 127 (L) MPV, [place] 9.0 - 12.7 fL 9.6 Neut%, [place] % 63.2 Lymp%, [place] % 23.0 Clare%, [place] % 10.3 Eos%, [place] % 3.1 Baso%, [place] % 0.4 Abs Neut, [place] 1.45 - 7.50 k/uL 3.07 Abs Lymp, [place] 1.00 - 4.00 k/uL 1.12 Abs Clare, [place] 0.00 - 0.86 k/uL 0.50 Abs Eos, [place] 0.00 - 0.45 k/uL 0.15 Abs Baso, [place] 0.00 - 0.10 k/uL 0.02 Glucose 74 - 99 mg/dL 113 (H) 121 (H) BUN 9 - 24 mg/dL 31 (H) 7 (L) Creatinine 0.73 - 1.22 mg/dL 4.48 (H) 1.87 (H) Sodium 136 - 144 mmol/L 136 135 (L) Potassium 3.7 - 5.1 mmol/L 3.9 3.4 (L) Chloride 97 - 105 mmol/L 100 93 (L) CO2 22 - 30 mmol/L 23 31 (H) Anion Gap 9 - 18 mmol/L 13 11 Calcium 8.5 - 10.2 mg/dL 10.1 9.3 eGFR- 16 42 eGFR-All Other Races . 13 35 Hemoglobin A1C 4.3 - 5.6 % 5.4 4.9 Estimated Average Glucose mg/dL 108 94 Vitamin D 25 Hydroxy 31.0 - 80.0 ng/mL 64.4 Hospital labs: CBC-COMPLETE BLOOD CNT NO DIFF Collected: 05/26/2018 5:16 AM Status: F Source: [facility] REPOSITORY TYPE CODE TESTS RESULT OUT OF RANGE REFERENCE UNITS LAB L100.1000 WBC 3.2 Low 4.4-11.0 K/mm3 LAB L100.1200 RBC 3.52 Low 4.6-6.2 M/mm3 LAB L100.1300 HGB 10.5 Low 13.0-16.5 g/dl LAB L100.1400 HCT 32.7 Low 40-54 % LAB L100.1500 MCV 92.9 Normal 80-94 fL LAB L100.1600 MCH 29.8 Normal 27.0-32.0 pg LAB L100.1700 MCHC 32.1 Normal 32-36 g/gl LAB L100.1810 RDW CV 15.3 High 11.6-14.6 % LAB L100.1820 RDW SD 49.5 High 35.1-43.9 fl LAB L100.1900 PLT 99 Low 150-450 K/mm3 LAB L100.2000 MPV 9.0 Normal 6.2-12.0 fl Performed By: #### L100.0500 #### [facility] [place], [address] BASIC METABOLIC PROFILE (BMP) Collected: 05/26/2018 5:16 AM Status: F Source: [facility] REPOSITORY TYPE CODE TESTS RESULT OUT OF RANGE REFERENCE UNITS LAB L501.0100 GLU 87 Normal 74-106 mg/dL Result Comment: Please note revised GLUCOSE reference range effective 2017. LAB L501.1000 BUN 19 High 7-18 mg/dL LAB L501.1100 CREAT,SERUM 3.72 High 0.70-1.30 mg/dL Result Comment: The validity of the calculated GFR AND GFRAA in patients over 70 years has not been determined. Clinical correlation is essential. LAB L501.1110 EST GFR 17 Low >60 mL/min Result Comment: Non- GFR Calc LAB L501.1115 EST GFR - AA 20 Low >60 mL/min Result Comment: GFR Calc LAB L501.1255 Estimated CRCL 11.91 Normal ? ml/min LAB L501.1300 BUN/CRE 5.1 Low 10-20 RATIO LAB L501.2200 CA 10.0 Normal 8.5-10.1 mg/dL LAB L501.5300 NA 138 Normal 136-145 mmol/L LAB L501.5600 K 3.7 Normal 3.5-5.1 mmol/L LAB L501.5900 CL 103 Normal 98-107 mmol/L LAB L501.6100 CO2 29.0 Normal 21.0-32.0 mmol/L LAB L501.6200 GAP 6 Normal 5-15 ? Performed By: #### L500.2500, L500.4100, L501.6710, L506.0250 #### [facility] [address] [place], [address] LIPID PROFILE Collected: 05/26/2018 5:16 AM Status: F Source: [facility] REPOSITORY TYPE CODE TESTS RESULT OUT OF RANGE REFERENCE UNITS LAB L501.4900 CHOL 81 Normal 200 mg/dL Result Comment: <200 mg/dL Desirable 200-240 mg/dL Borderline >240 mg/dL High Risk LAB L501.5000 TRIG 81 Normal ? mg/dL Result Comment: The drugs N-Acetylcysteine and Metamizole may falsely depress this assay. Serum Triglycerides Reference Interval Normal <150 mg/dL Borderline high 150 - 199 mg/dL High 200 - 499 mg/dL Very High > or = 500 mg/dL LAB L501.6400 HDL 26 Low ? mg/dL Result Comment: The drugs N-Acetylcysteine and Metamizole may falsely depress this assay. Reference Range HDL <40 mg/dL Low HDL Cholesterol HDL >or= 60 mg/dL High HDL Cholesterol LAB L501.6500 LDL 39 Normal 0-130 mg/dL LAB L501.6600 VLDL 16 Normal 5-40 mg/dL Performed By: #### L500.2500, L500.4100, L501.6710, L506.0250 #### [facility] [address] [place], [address] CRP Collected: 05/26/2018 5:16 AM Status: F Source: [facility] REPOSITORY TYPE CODE TESTS RESULT OUT OF RANGE REFERENCE UNITS LAB L501.6710 C-REACTIVE PROT 4.33 High 0.0-3.0 mg/L Result Comment: C-Reactive Protein (CRP) provides useful information for the diagnosis, therapy and monitoring of inflammatory processes and associated diseases. For the evaluation of Relative Risk for Cardiovascular Disease, a High Sensitivity CRP (HSCRP) should be ordered. Performed By: #### L500.2500, L500.4100, L501.6710, L506.0250 #### [facility] [address] [place], [address] FOLATES, (FOLIC ACID) Collected: 05/26/2018 5:16 AM Status: F Source: [facility] REPOSITORY TYPE CODE TESTS RESULT OUT OF RANGE REFERENCE UNITS LAB L506.0250 FOLATES 8.70 Normal 3.1-55.4 ng/mL Performed By: #### L500.2500, L500.4100, L501.6710, L506.0250 #### [facility] [address] [place], [address] HEMOGLOBIN A1C Collected: 05/26/2018 5:16 AM Status: F Source: [facility] REPOSITORY TYPE CODE TESTS RESULT OUT OF RANGE REFERENCE UNITS LAB L501.9985 HGB A1C 4.2 Normal 4.2-6.3 % Performed By: #### L501.9985 #### [facility] [address] [place], [address] VITAMIN B12 Collected: 05/26/2018 5:16 AM Status: F Source: [facility] REPOSITORY TYPE CODE TESTS RESULT OUT OF RANGE REFERENCE UNITS LAB L503.0105 Vitamin B12 277 Normal 211-911 pg/mL Performed By: #### L503.0105 #### [facility] [address] [place], [address] URINALYSIS, COMPLETE Collected: 05/26/2018 4:30 AM Status: F Source: [facility] REPOSITORY Order Comment: Microscopic field is filled. Other elements may be obscured. How was Urine Obtained? SPECIAL SERVICES COORDINATOR TO SPECIFY TYPE CODE TESTS RESULT OUT OF RANGE REFERENCE UNITS LAB L400.3000 COLOR Yellow Normal Yellow ? LAB L400.3050 CLARITY Turbid Normal Clear ? LAB L400.3200 GLUCOSE, UR Normal Normal Normal mg/dl LAB L400.3300 BILIRUBIN URINE Negative Normal Negative mg/dL LAB L400.3400 KETONE UR Negative Normal Negative mg/dl LAB L400.3465 SP.GR. DIPSTX 1.010 Normal 1.002-1.030 ? LAB L400.3550 pH UR 8.0 Normal 5.0 - 8.0 ? LAB L400.3600 PROT DIPSTX 500 High Negative mg/dl LAB L400.3700 UROBILI Normal Normal Normal mg/dl LAB L400.3750 NITRITE UR Negative Normal Negative ? LAB L400.3780 OCCULT BLOOD-UR 250 High Negative /ul LAB L400.3800 LEUK ESTERASE 500 High Negative /ul LAB L400.4050 WBC 50-100 SEEN Normal 0-5 /hpf LAB L400.4100 RBC-UA 0-5 SEEN Normal 0-5 /hpf LAB L400.4150 SQUAM EPI 0-5 SEEN Normal 0-5 /hpf LAB L400.4300 BACTERIA 1+ Normal None Seen /hpf LAB L400.4350 MUCUS, URINE 0 SEEN Normal <or=2+ /hpf Performed By: #### L400.0001 #### [facility] [address] [place], [address] ASSESSMENT AND PLAN: Encounter Diagnosis ICD-10-CM 1. Urinary urgency R39.15 URINALYSIS WITH MICROSCOPIC URINE CULTURE UA DIP B/O 2. Urinary frequency R35.0 URINALYSIS WITH MICROSCOPIC URINE CULTURE UA DIP B/O 3. Sensation of pressure in bladder area R39.89 URINALYSIS WITH MICROSCOPIC URINE CULTURE UA DIP B/O 4. Essential hypertension I10 5. Class 1 obesity due to excess calories with serious comorbidity and body mass index (BMI) of 34.0 to 34.9 in adult E66.09 Z68.34 6. ESRD on hemodialysis (HCC) N18.6 Z99.2 7. Frequent falls R29.6 off coumadin because of fall risk 8. Gait instability R26.81 9. Weakness R53.1 wheelchair dependent Complicated patient. Addresved above medical issues and concerns of 's. Not able to give much urine--can drop off urine if/when able. Continues to go or HD for ESRD. Weakness and falls noted. Off coumadin as noted above. Further evaluation and treatment as indicated. Above issues addressed with patient. Patient involved in shared decision making for management of her medical issues. History and medications reviewed. Epic updated as needed Refills taken care of and meds adjusted as indicated after reviewed history, exam and labs. Health Maintenance reviewed. Updated record and/or ordered tests as recorded. Encouraged on efforts at healthy diet and regular exercise and adequate sleep. Weight continues to come down. She watches his diet. Gradual weight loss fine--still with BMI over 30. The majority of the visit was spent counseling and/or coordinating care for the patient. Zrtz-kw-nmxa time was at least 25 minutes. Yesenia Crocker MD CNOV Observed: 06/10/2018 Status: COMPLETED Source: [place] 2:20 PM [facility] REPOSITORY Office Visit (INTMWS) ANSLEY OLIVAS ([id number]) 1940 M Date Time Provider Department 06/10/18 2:20 PM YESENIA CROCKER INTMWS During your visit today, we recorded the following information about you: Pulse Respiration Blood pressure Weight 72/minute 20/minute 110/60 86.6 kg Yesenia Crocker MD 06/30/2018 3:16 AM Signed Patient presents with: Recheck: 3 month follow up SUBJECTIVE: Ansley Olivas is a 78 year old year old gentleman here today for 3 month follow up appointment for review of medical conditions. Reviewed that was in ER recently because of fall. Hit right side of head and had abrasion frontal and tempoparietal area. Was in hospital earlier in May for concerns of trouble with speech and worried about possible stroke. Coumadin stopped along with several other meds. Main concern of : Urinary urgency even though bladder empties. Nocturia every hour or so because of pressure sensation even though not much urine. Will see Dr. Moore for follow up-- plans to call to get appointment. Already ruled out UTI and urinary retention at the hospital according to . Had to go to bathroom while at appointment. 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 Jose Ferreira - Hep C w/o coma, chronic (HCC) Grade 1 Stage I - Kidney disease - Mohs for BCC, left cheek --08 02/03/2008 - Morbid obesity (HCC) - Renal failure 11/03/2016 - SCAR AND FIBROSIS OF SKIN 07/19/2008 - SOLAR LENGINES///DYSCHROMIA OTHER 07/19/2008 - Unspecified essential hypertension Current Outpatient Prescriptions: amLODIPine (NORVASC) 5 mg tablet DAILY metoprolol tartrate, short acting, (LOPRESSOR) 50 mg tablet Take 1 tablet by mouth twice daily. senna-docusate (SENNA PLUS) 8.6-50 mg per tablet Take 1 tablet by mouth once daily. tamsulosin ER (FLOMAX) 0.4 mg cp24 Take 2 capsules by mouth once daily at 5:30 Ammonium,Pot.and Sodium Lactates (AMLACTIN) crea Apply 1 application to affected area once daily. COMPOUNDED PRESCRIPTION Front wheeled walked with seat attachmentDx (M15.9) Generalized osteoarthritis; (R53.1) Weakness, (R26.81) Gait instability qaygwlavrnIQVDB-ivsvmo-jxlemnqgv (BMX 1:1:1) 1:1:1 liqd Gargle 5ml and swallow every 4 hours as needed. May use 20 minutes prior to eating COMPOUNDED PRESCRIPTION Home BP cuff, Dx: HTN labile oxyCODONE IR (ROXICODONE) 5 mg immediate release tablet Take 1 tablet by mouth every 8 hours as needed for Pain for up to 30 days.Earliest Fill Date: 04/08/18 No current facility-administered medications for this visit. OBJECTIVE: BP 110/60 Pulse 72 Resp 20 Wt 86.6 kg (191 lb) BMI 34.93 kg/m? Last 5 Encounter Wt Readings: Date: Wt: 06/10/2018 86.6 kg (191 lb) 03/09/2018 91.6 kg (202 lb) 02/19/2018 92.5 kg (204 lb) 01/21/2018 92.1 kg (203 lb) 01/12/2018 92.5 kg (204 lb) Patient is alert, oriented times 3, no apparent distress, affect is bright, reactive. Abrasions on right side of face and top of head noted--helaing Heart: Regular rate, rhythm, no murmurs, gallops, rubs. Lungs: Clear to auscultation, bilaterally, breathing non labored. Ext: No cyanosis, clubbing, or edema except small amount . Prior labs: Component Latest Ref Rng AND Units 08/20/2016 10/07/2016 01/05/2017 02/25/2017 12/08/2017 WBC 3.70 - 11.00 k/uL 8.48 5.19 RBC 4.20 - 6.00 m/uL 4.38 3.86 (L) Hemoglobin 13.0 - 17.0 g/dL 13.2 11.1 (L) Hematocrit 39.0 - 51.0 % 39.5 36.4 (L) MCV 80.0 - 100.0 fL 90.2 94.3 MCH 26.0 - 34.0 pG 30.1 28.8 MCHC 30.5 - 36.0 g/dL 33.4 30.5 RDW-CV 11.5 - 15.0 % 15.1 (H) 16.1 (H) Platelet Count 150 - 400 k/uL 226 184 MPV 9.0 - 12.7 fL 10.3 9.4 Neut% % 63.6 Abs Neut (ANC) 1.45 - 7.50 k/uL 3.30 Lymph% % 25.4 Abs Lymph 1.00 - 4.00 k/uL 1.32 Clare% % 8.7 Abs Clare 0.00 - 0.86 k/uL 0.45 Eosin% % 2.1 Abs Eosin 0.00 - 0.45 k/uL 0.11 Baso% % 0.2 Abs Baso 0.00 - 0.10 k/uL 0.01 Nucleated Reds 0 /100 WBC 0.0 Absolute nRBC k/uL 0.00 Diff Type Auto Diff WBC, [place] 3.70 - 11.00 k/uL 4.86 RBC, [place] 4.20 - 6.00 m/uL 4.04 (L) Hemoglobin, [place] 13.0 - 17.0 g/dL 12.0 (L) Hematocrit, [place] 39.0 - 51.0 % 38.3 (L) MCV, [place] 80.0 - 100.0 fL 94.8 MCH, [place] 26.0 - 34.0 pg 29.7 MCHC, [place] 30.5 - 36.0 g/dL 31.3 RDW, [place] 11.5 - 15.0 % 14.4 Platelet Cnt, [place] 150 - 400 k/uL 127 (L) MPV, [place] 9.0 - 12.7 fL 9.6 Neut%, [place] % 63.2 Lymp%, [place] % 23.0 Clare%, [place] % 10.3 Eos%, [place] % 3.1 Baso%, [place] % 0.4 Abs Neut, [place] 1.45 - 7.50 k/uL 3.07 Abs Lymp, [place] 1.00 - 4.00 k/uL 1.12 Abs Clare, [place] 0.00 - 0.86 k/uL 0.50 Abs Eos, [place] 0.00 - 0.45 k/uL 0.15 Abs Baso, [place] 0.00 - 0.10 k/uL 0.02 Glucose 74 - 99 mg/dL 113 (H) 121 (H) BUN 9 - 24 mg/dL 31 (H) 7 (L) Creatinine 0.73 - 1.22 mg/dL 4.48 (H) 1.87 (H) Sodium 136 - 144 mmol/L 136 135 (L) Potassium 3.7 - 5.1 mmol/L 3.9 3.4 (L) Chloride 97 - 105 mmol/L 100 93 (L) CO2 22 - 30 mmol/L 23 31 (H) Anion Gap 9 - 18 mmol/L 13 11 Calcium 8.5 - 10.2 mg/dL 10.1 9.3 eGFR- 16 42 eGFR-All Other Races . 13 35 Hemoglobin A1C 4.3 - 5.6 % 5.4 4.9 Estimated Average Glucose mg/dL 108 94 Vitamin D 25 Hydroxy 31.0 - 80.0 ng/mL 64.4 Hospital labs: CBC-COMPLETE BLOOD CNT NO DIFF Collected: 05/26/2018 5:16 AM Status: F Source: [facility] REPOSITORY TYPE CODE TESTS RESULT OUT OF RANGE REFERENCE UNITS LAB L100.1000 WBC 3.2 Low 4.4-11.0 K/mm3 LAB L100.1200 RBC 3.52 Low 4.6-6.2 M/mm3 LAB L100.1300 HGB 10.5 Low 13.0-16.5 g/dl LAB L100.1400 HCT 32.7 Low 40-54 % LAB L100.1500 MCV 92.9 Normal 80-94 fL LAB L100.1600 MCH 29.8 Normal 27.0-32.0 pg LAB L100.1700 MCHC 32.1 Normal 32-36 g/gl LAB L100.1810 RDW CV 15.3 High 11.6-14.6 % LAB L100.1820 RDW SD 49.5 High 35.1-43.9 fl LAB L100.1900 PLT 99 Low 150-450 K/mm3 LAB L100.2000 MPV 9.0 Normal 6.2-12.0 fl Performed By: #### L100.0500 #### [facility] [place], [address] BASIC METABOLIC PROFILE (BMP) Collected: 05/26/2018 5:16 AM Status: F Source: [facility] REPOSITORY TYPE CODE TESTS RESULT OUT OF RANGE REFERENCE UNITS LAB L501.0100 GLU 87 Normal 74-106 mg/dL Result Comment: Please note revised GLUCOSE reference range effective 2017. LAB L501.1000 BUN 19 High 7-18 mg/dL LAB L501.1100 CREAT,SERUM 3.72 High 0.70-1.30 mg/dL Result Comment: The validity of the calculated GFR AND GFRAA in patients over 70 years has not been determined. Clinical correlation is essential. LAB L501.1110 EST GFR 17 Low >60 mL/min Result Comment: Non- GFR Calc LAB L501.1115 EST GFR - AA 20 Low >60 mL/min Result Comment: GFR Calc LAB L501.1255 Estimated CRCL 11.91 Normal ? ml/min LAB L501.1300 BUN/CRE 5.1 Low 10-20 RATIO LAB L501.2200 CA 10.0 Normal 8.5-10.1 mg/dL LAB L501.5300 NA 138 Normal 136-145 mmol/L LAB L501.5600 K 3.7 Normal 3.5-5.1 mmol/L LAB L501.5900 CL 103 Normal 98-107 mmol/L LAB L501.6100 CO2 29.0 Normal 21.0-32.0 mmol/L LAB L501.6200 GAP 6 Normal 5-15 ? Performed By: #### L500.2500, L500.4100, L501.6710, L506.0250 #### [facility] [address] [place], [address] LIPID PROFILE Collected: 05/26/2018 5:16 AM Status: F Source: [facility] REPOSITORY TYPE CODE TESTS RESULT OUT OF RANGE REFERENCE UNITS LAB L501.4900 CHOL 81 Normal 200 mg/dL Result Comment: <200 mg/dL Desirable 200-240 mg/dL Borderline >240 mg/dL High Risk LAB L501.5000 TRIG 81 Normal ? mg/dL Result Comment: The drugs N-Acetylcysteine and Metamizole may falsely depress this assay. Serum Triglycerides Reference Interval Normal <150 mg/dL Borderline high 150 - 199 mg/dL High 200 - 499 mg/dL Very High > or = 500 mg/dL LAB L501.6400 HDL 26 Low ? mg/dL Result Comment: The drugs N-Acetylcysteine and Metamizole may falsely depress this assay. Reference Range HDL <40 mg/dL Low HDL Cholesterol HDL >or= 60 mg/dL High HDL Cholesterol LAB L501.6500 LDL 39 Normal 0-130 mg/dL LAB L501.6600 VLDL 16 Normal 5-40 mg/dL Performed By: #### L500.2500, L500.4100, L501.6710, L506.0250 #### [facility] [address] [place], [address] CRP Collected: 05/26/2018 5:16 AM Status: F Source: [facility] REPOSITORY TYPE CODE TESTS RESULT OUT OF RANGE REFERENCE UNITS LAB L501.6710 C-REACTIVE PROT 4.33 High 0.0-3.0 mg/L Result Comment: C-Reactive Protein (CRP) provides useful information for the diagnosis, therapy and monitoring of inflammatory processes and associated diseases. For the evaluation of Relative Risk for Cardiovascular Disease, a High Sensitivity CRP (HSCRP) should be ordered. Performed By: #### L500.2500, L500.4100, L501.6710, L506.0250 #### [facility] [address] [place], [address] FOLATES, (FOLIC ACID) Collected: 05/26/2018 5:16 AM Status: F Source: [facility] REPOSITORY TYPE CODE TESTS RESULT OUT OF RANGE REFERENCE UNITS LAB L506.0250 FOLATES 8.70 Normal 3.1-55.4 ng/mL Performed By: #### L500.2500, L500.4100, L501.6710, L506.0250 #### [facility] [address] [place], [address] HEMOGLOBIN A1C Collected: 05/26/2018 5:16 AM Status: F Source: [facility] REPOSITORY TYPE CODE TESTS RESULT OUT OF RANGE REFERENCE UNITS LAB L501.9985 HGB A1C 4.2 Normal 4.2-6.3 % Performed By: #### L501.9985 #### [facility] [address] [place], [address] VITAMIN B12 Collected: 05/26/2018 5:16 AM Status: F Source: [facility] REPOSITORY TYPE CODE TESTS RESULT OUT OF RANGE REFERENCE UNITS LAB L503.0105 Vitamin B12 277 Normal 211-911 pg/mL Performed By: #### L503.0105 #### [facility] [address] [place], [place], [address] URINALYSIS, COMPLETE Collected: 05/26/2018 4:30 AM Status: F Source: [facility] REPOSITORY Order Comment: Microscopic field is filled. Other elements may be obscured. How was Urine Obtained? SPECIAL SERVICES COORDINATOR TO SPECIFY TYPE CODE TESTS RESULT OUT OF RANGE REFERENCE UNITS LAB L400.3000 COLOR Yellow Normal Yellow ? LAB L400.3050 CLARITY Turbid Normal Clear ? LAB L400.3200 GLUCOSE, UR Normal Normal Normal mg/dl LAB L400.3300 BILIRUBIN URINE Negative Normal Negative mg/dL LAB L400.3400 KETONE UR Negative Normal Negative mg/dl LAB L400.3465 SP.GR. DIPSTX 1.010 Normal 1.002-1.030 ? LAB L400.3550 pH UR 8.0 Normal 5.0 - 8.0 ? LAB L400.3600 PROT DIPSTX 500 High Negative mg/dl LAB L400.3700 UROBILI Normal Normal Normal mg/dl LAB L400.3750 NITRITE UR Negative Normal Negative ? LAB L400.3780 OCCULT BLOOD-UR 250 High Negative /ul LAB L400.3800 LEUK ESTERASE 500 High Negative /ul LAB L400.4050 WBC 50-100 SEEN Normal 0-5 /hpf LAB L400.4100 RBC-UA 0-5 SEEN Normal 0-5 /hpf LAB L400.4150 SQUAM EPI 0-5 SEEN Normal 0-5 /hpf LAB L400.4300 BACTERIA 1+ Normal None Seen /hpf LAB L400.4350 MUCUS, URINE 0 SEEN Normal <or=2+ /hpf Performed By: #### L400.0001 #### [facility] [address] [facility] [place], [address] ASSESSMENT AND PLAN: Encounter Diagnosis ICD-10-CM 1. Urinary urgency R39.15 URINALYSIS WITH MICROSCOPIC URINE CULTURE UA DIP B/O 2. Urinary frequency R35.0 URINALYSIS WITH MICROSCOPIC URINE CULTURE UA DIP B/O 3. Sensation of pressure in bladder area R39.89 URINALYSIS WITH MICROSCOPIC URINE CULTURE UA DIP B/O 4. Essential hypertension I10 5. Class 1 obesity due to excess calories with serious comorbidity and body mass index (BMI) of 34.0 to 34.9 in adult E66.09 Z68.34 6. ESRD on hemodialysis (HCC) N18.6 Z99.2 7. Frequent falls R29.6 off coumadin because of fall risk 8. Gait instability R26.81 9. Weakness R53.1 wheelchair dependent Complicated patient. Addresved above medical issues and concerns of 's. Not able to give much urine--can drop off urine if/when able. Continues to go or HD for ESRD. Weakness and falls noted. Off coumadin as noted above. Further evaluation and treatment as indicated. Above issues addressed with patient. Patient involved in shared decision making for management of her medical issues. History and medications reviewed. Epic updated as needed Refills taken care of and meds adjusted as indicated after reviewed history, exam and labs. Health Maintenance reviewed. Updated record and/or ordered tests as recorded. Encouraged on efforts at healthy diet and regular exercise and adequate sleep. Weight continues to come down. She watches his diet. Gradual weight loss fine--still with BMI over 30. The majority of the visit was spent counseling and/or coordinating care for the patient. Obac-qf-nyco time was at least 25 minutes. MD Yesenia Daly MD 06/10/2018 3:[address] [facility] [address] [place] [id number] [phone] Referring Provider: SELF [200] Allergies As of Date: 06/10/2018 Noted Allergy Reaction BETA BLOCKERS (BETA-BLOCKERS (BET*10/04/2010 14 - Other: See Comments Comments: Severe fatigue SULFA (SULFONAMIDE ANTIBIOTICS) 08/14/2005 4 - Hives Date Reviewed: 06/10/2018 Reviewed by: Tiffanie Bianchi LPN - Fully Assessed Reason for Visit: Recheck [92] Cmt: 3 month follow up Primary Visit Diagnosis:Urinary urgency [R39.15] Other Visit Diagnoses:Urinary frequency [R35.0] Sensation of pressure in bladder area [R39.89] Essential hypertension [I10] Class 1 obesity due to excess calories with serious comorbidity and body mass index (BMI) of 34.0 to 34.9 in adult [E66.09, Z68.34] ESRD on hemodialysis (HCC) [N18.6, Z99.2] Frequent falls [R29.6] Comment:off coumadin because of fall risk Gait instability [R26.81] Weakness [R53.1] Comment:wheelchair dependent Order(s):URINALYSIS WITH MICROSCOPIC [SQUAWMIC] Order #: [id number] FUTURE URINE CULTURE [SQURCUL] Order #: [id number] UA DIP B/O [3707778] Order #: [id number] Prescriptions as of 06/10/2018 Sig: AMLODIPINE 5 MG TABLET DAILY METOPROLOL TARTRATE 50 MG TAB* Take 1 tablet by mouth twice * SENNOSIDES 8.6 MG-DOCUSATE SO* Take 1 tablet by mouth once d* TAMSULOSIN 0.4 MG CAPSULE Take 2 capsules by mouth once* AMMONIUM LACTATE-SODIUM LACTA* Apply 1 application to affect* COMPOUNDED PRESCRIPTION Front wheeled walked with sea* [id number]-[id number]-HPXCE* Gargle 5ml and swallow every * * COMPOUNDED PRESCRIPTION Home BP cuff, Dx: HTN labile X OXYCODONE 5 MG TABLET Take 1 tablet by mouth every * Medication notes this encounter WARFARIN 2.5 MG TABLET >> Yesenia Crocker MD 06/10/2018 3:03 PM fall risk; had falls and was in ER 06/06 Problem List As Of Date 06/10/2018 Noted Resolved Class 1 obesity due to excess calories with ser* Essential hypertension [I10] 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] INVALID FOR* HERPES ZOSTER NOS [B02.9] INVALID FOR* DYSMETABOLIC SYNDROME X [E88.81] ANEMIA NOS [D64.9] Mohs for BCC, left cheek 02-03-08 [173.8] INVALID FOR* ACTINIC KERATOSES (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 Complication of dialysis access insertion (HCC)*INVALID FOR* Acute deep vein thrombosis (DVT) of both upper *INVALID FOR*06/10/2018 ESRD on hemodialysis (HCC) [N18.6, Z99.2] INVALID FOR* More... Weakness [R53.1] INVALID FOR* More... BPH with obstruction/lower urinary tract sympto*INVALID FOR* More... 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 Gait instability [R26.81] INVALID FOR* Other instructions from your clinician: Dr[facility] [address] [place] [address] [phone] Medications Discontinued During This Encounter warfarin (COUMADIN) 2.5 mg tablet 60 t* 11 10/13/2017 06/10/2018 Simg Mon and Fri; and 2.5mg other days or as directed. Patient not taking: Reported on 06/10/2018 Disc: Discontinued by another Health Care Provider dicyclomine (BENTYL) 10 mg capsule 540 * 3 10/13/2017 06/10/2018 Route: ORAL Sig: Take 2 capsules by mouth three times daily before meals. Patient not taking: Reported on 06/10/2018 Disc: Discontinued by another Health Care Provider omeprazole (PRILOSEC) 20 mg capsule 90 c* 3 10/13/2017 06/10/2018 Route: ORAL Sig: Take 1 capsule by mouth once daily. Patient not taking: Reported on 06/10/2018 Disc: Discontinued by another Health Care Provider Disposition: Return for Add next 3 month FU. Follow-up and Disposition History Recorded Encounter Status:Closed by YESENIA CROCKER MD on 06/30/18 DISCHARGE INSTRUCTION Observed: 06/06/2018 Status: F Source: [place] 7:[address] [facility] REPOSITORY [facility] Medical Records Department [address] [place] [address] Discharge Instruction 06/06/18 0731 MR#: [id number] Acct: [id number] Name: ANSLEY OLIVAS Mirna Rep #: [id number] : 1940 78 From: Tamara Carlton PCP: Yesenia Crocker MD Status: REG ER ED Disposition - Plan for ED Patient: Chief Complaint: Laceration Instructions: ED Head Injury Closed, ED Avulsion Dermal Referrals: Yesenia Crocker MD [Primary Care Provider] - 3-5 Days What to do if you have Problems For any increased pain, shortness of breath, bleeding, nausea or vomiting, chest pain, or any unexpected problems, contact your Primary Care Provider. Call [facility] ([phone]) or report to the closest Emergency Room. Call 911 if necessary. 06/06/18731 <Electronically signed by Tamara Carlton > Date Tamara Carlton Cosigner Signature (If Indicated): Date CC: Yesenia Crocker MD EMERGENCY DEPARTMENT Observed: 06/06/2018 Status: F Source: [place] SUMMARY 7:[address] [facility] REPOSITORY [facility] Medical Records Department [address] [place] [address] Emergency Department Summary 06/06/18 0616 MR#: [id number] Acct: [id number] Name: BRENDONANSLEY Rep #: [id number] : 1940 78 From: Tamara Carlton PCP: Yesenia Crocker MD Status: REG ER - ER Visit Summary Date of Service: 06/06/18 Chief Complaint: [Fall] History of Present Illness: The patient is a 78 M [who presents the emergency department after a fall. He got up and lost his balance and fell and hit the side of his head. This is not uncommon for him. He did hit his head on the plug. She will not complaining of any pain at this time although his states that when EMS got a mild he appeared to be in discomfort. He is not on any anticoagulation.] Physical Examination: [] Small skin avulsion the right parietal, skin avulsions the right cheondoism Pupils equal and reactive extraocular eye movements are intact Neck is nontender Regular rate and rhythm no murmurs Clear to auscultation bilaterally Abdomen soft and nontender he has a small soft tissue bruise of the right lower abdominal wall Full range of motion without pain deformity of both upper extremities, mild tenderness to palpation of the right knee anteriorly with a small bruise. There is a well-healed anterior scar over the knee. He has full range of motion of the knee and hip without significant pain Back is nontender Alert and oriented 3 with no focal deficits Test Results: [] Emergency Department Course and Treatment: CT the head shows no acute process. X-rays of the knee showed no acute process. Patient ambulated in the emergency department at his baseline. At this time I do think he is stable to go home. Falls are a chronic issue for him and both him and his are not concerned about this fall he did not lose consciousness he did not pass out he has chronic gait instability. [] Treatment Plan: [] Disposition: [Discharge] Impression: [Closed head injury, abrasions, right knee contusion] This note was generated with [employer] dictation software. It may contain incorrect words, spelling, and punctuation that were not noted in review of the chart prior to signing ED Disposition - Plan for ED Patient: Chief Complaint: Laceration Referrals: Yesenia Crocker MD [Primary Care Provider] - What to do if you have Problems For any increased pain, shortness of breath, bleeding, nausea or vomiting, chest pain, or any unexpected problems, contact your Primary Care Provider. Call [employer] Registry ([phone]) or report to the closest Emergency Room. Call 911 if necessary. 06/06/18 9878 <Electronically signed by Tamara Carlton > Date Tamara Carlton Cosigner Signature (If Indicated): Date CC: Yesenia Crocker MD BRAIN/HEAD WITHOUT Observed: 06/06/2018 Status: F Source: [place] CONTRAST 6:[address] [facility] REPOSITORY [facility] Imaging Services [address] [place] [address] Brain/Head without Contrast MR#: [id number] Acct: [id number] Name: ANSLEY OLIVAS Rep #: [id number] : 1940 M 78 From: Partha Alatorre PCP: Yesenia Crocker MD Status: REG ER Study: Brain/Head without Contrast Date of Exam: 06/06/18 Exam# [id number] Ordering Dr: Tamara Carlton STUDY: CT BRAIN WITHOUT CONTRAST REASON FOR EXAM: Male, 78 years old. Status post fall. RADIATION DOSAGE (If Supplied By Facility): CTDIvol = ( 44.99 ) mGy, DLP = ( 762.36 ) mGycm TECHNIQUE: Transaxial CT imaging of the brain was performed without administration of intravenous contrast material. Individualized dose optimization techniques were used for this CT. COMPARISON: CT brain: 05/25/2018 FINDINGS: Normal soft tissue structures. Normal calvarium. Normal size ventricles and extra-axial spaces for the patient's age. There are areas of decreased attenuation within the white matter tracts of the supratentorial brain, consistent with microvascular disease changes. There is no acute abnormality of the basal ganglia, thalami and brainstem. There is moderate cerebellar atrophy. There is no intracranial hemorrhage. There are no findings of an acute ischemic infarction. Atherosclerotic calcification of the cavernous ICAs and bilateral vertebral arteries. There is mucoperiosteal inflammatory disease of the ethmoid and left maxillary sinuses consistent with mild chronic sinusitis. CT/Brain/Head without Contrast IMPRESSION: 1. Chronic involutional and ischemic changes of the brain. 2. No acute intracranial abnormality noted. Stable appearing brain. Electronically Signed: Ayde Alatorre MD at 7:13 EDT Tel , Service support , CC: Tamara Carlton; Yesenia Crocker MD 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: Signed KNEE 3 VIEWS Observed: 06/06/2018 Status: F Source: [place] 6:[address] [facility] REPOSITORY [facility] Imaging Services [address] [place] [address] Knee 3 Views MR#: [id number] Acct: [id number] Name: ANSLEY OLIVAS Rep #: [id number] : 1940 M 78 From: Partha Alatorre PCP: Yesenia Crocker MD Status: REG ER Study: Knee 3 Views Date of Exam: 06/06/18 Exam# [id number] Ordering Dr: Tamara Carlton STUDY: X-RAY - RIGHT KNEE REASON FOR EXAM: Male, 78 years old. Fall. TECHNIQUE: 3 view(s) of the knee. COMPARISON: None. FINDINGS: There is demineralization of the visualized distal femur and visualized proximal tibia and fibula. There is arthrosis of the proximal tibiofibular articulation. There is no demonstrated fracture. There is a total knee arthroplasty with noncemented femoral and tibial prosthetic components in place. There is a low-lying patella. Suprapatellar soft tissue calcifications. There are atherosclerotic calcifications. RAD/Knee 3 Views IMPRESSION: 1. No demonstrated fracture or dislocation. 2. Uncomplicated total right knee arthroplasty. Electronically Signed: Ayde Alatorre MD at 7:16 EDT Tel , Service support , CC: Tamara Carlton; Yesenia Crocker MD 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: Signed DISCHARGE SUMMARY Observed: 05/27/2018 Status: F Source: [place] 3:[address] [facility] REPOSITORY [facility] Medical Records Department [address] [place] [address] Discharge Summary 05/27/18 1552 MR#: [id number] Acct: [id number] Name: ANSLEY OLIVAS Rep #: [id number] : 1940 78 From: Javad Vivas DO PCP: Yesenia Crocker MD Status: DIS REBEKAH Y Location: [place] [address] Discharge Date and Diagnosis Date of Admission: 05/25/18 Date of Discharge: 05/26/18 - Primary Discharge Diagnosis #1 generalized weakness and transient aphasia secondary to metabolic encephalopathy #2 end-stage renal disease on dialysis #3 hypertension #4 generalized debility secondary to multiple medical problems #5 benign prostatic hypertrophy - Secondary Discharge Diagnosis Chronic Problems Morbid obesity (Chronic) Chronic renal disease, stage IV (Chronic) Benign prostatic hypertrophy (Chronic) Hypertension (Chronic) Nephrotic syndrome (Chronic) Hospital Course and Treatment Operations: None Procedures: None Summary of Care Provided: The patient is a 78 year old M who was seen in the emergency room at [facility] after being brought in by his with complaints of generalized weakness. His stated that the weakness got worse throughout the day, she also noted that he was having trouble expressing himself, she denied any slurred speech. Evaluation in the emergency room included a CT of the head which showed chronic changes, CBC showed pancytopenia which was normal for the patient, creatinine was 3.52. Patient was unable to walk secondary to generalized weakness in the emergency room, there was no evidence of expressive aphasia from the emergency room physician. Patient was placed and observation status on PCU, he was seen in consultation by neurology and had further imaging studies performed which showed no evidence of stroke. Neurology felt that the patient had a metabolic disorder due to his end-stage renal disease and patient's symptoms were due to this. I had a long discussion with the patient's , patient's did not desire the patient to go to a [facility] facility and the patient was able to walk short distances with a walker but refused to cooperate with physical therapy totally. requested that I contact the patient's urologist due to the fact the patient had been having some urinary discomfort at times, she states that she gave the patient antibiotics when this happened, I told her that this was not a good idea to administer antibiotics every time the patient had painful urination. I talked briefly with the patient's urologist Dr. Moore, he suggested some urological medications but these were contraindicated with end-stage renal disease. I discussed this with the patient's and told her that she needed to make an appointment for follow-up with . During the time I talked to the patient and his , patient most of the time did not verbally participate in the conversation and chose to lie in bed and not seen anything. I wonder if there is a component of dementia to the patient's behavior. Outpatient physical therapy was set up for the patient, on 05/27/18, patient was seen and examined felt to be in stable condition for discharge home. I had arranged for the patient to receive dialysis the day he was discharged home at an outpatient facility, however, patient's refused to take the patient to dialysis stating that she would take him to dialysis in 48 hours at his next scheduled dialysis date. I told her I did not feel this was a good idea but she insists that she was not going to take him to dialysis on 05/26/18. Discharge Activity: Return to Normal Activity Weight Bearing Status: Weight bearing as tolerated Home Medications: Medications to take at Discharge Sennosides/Docusate Sodium [Docusate Sodium-Senna Tablet] 1 ea PO PRN PRN 08/07/16 Omeprazole [Prilosec] 20 mg PO DAILY 10/23/16 Tamsulosin HCl [Flomax] 0.4 mg PO BID 10/23/16 Oxycodone [Oxyir] 5 mg PO Q8H PRN PRN #7 tab 10/28/16 Metoprolol Tartrate [Lopressor (beta keila)] 50 mg PO BID tab 11/03/16 Nepro Liquid [Nepro Carb Steady] 120 ml PO 4X/DAY liquid 05/26/18 Ondansetron HCl [Zofran] 4 mg PO Q6H PRN PRN #30 tab 05/26/18 Following Prescrptions Were Given to Patient: Ondansetron HCl [Zofran] 4 mg PO Q6H PRN PRN #30 tab PRN Reason: Nausea Primary Care Physician: Yesenia Crocker MD [Primary Care Provider] - Please follow up with your Primary Care Physician in: in 3 weeks Please Follow Up With: Aleks Moore MD When: call for appointment Disposition: Home Minutes spent on discharge:: 25 Patient Condition:: Stable Medical Necessity - Tobacco Use Smoking Status: Former smoker Meaningful Use Info Meaningful Use Diagnoses (Choose all that apply): None applicable Code Visit OBSV E AND M: 63375 Observation care discharge 05/27/18 1559 <Electronically signed by Javad Vivas DO> Date Javad Vivas DO Cosigner Signature (if applicable): Date CC: Yesenia Crocker MD; Javad Vivas DO Signed 12 LEAD ELECTROCARDIOGRAM Observed: 05/27/2018 Status: F Source: [place] 1:[address] [facility] REPOSITORY [facility] Cardiovascular Services [address] [place] [address] 12 Lead EKG 05/25/18 1615 MR#: [id number] Acct: [id number] Name: BRENDONANSLEY Rep #: [id number] : 1940 78 From: Marcos Weinstein MD Attending Dr: Javad Vivas DO Status: DIS REBEKAH Ordering Dr: Stewart Recinos MD Date: 05/25/18 Location: [facility] Sex: M C Admitted: 05/25/18 Test Reason : FALL Blood Pressure : / mmHG Vent. Rate : 066 BPM Atrial Rate : 066 BPM P-R Int : 164 ms QRS Dur : 076 ms QT Int : 418 ms P-R-T Axes : -02 -14 020 degrees QTc Int : 438 ms Normal sinus rhythm with sinus arrhythmia Normal ECG Confirmed by MARCOS WEINSTEIN MD ([id number]), television news video editor JAMEEL PENG ([id number]) on 05/27/2018 1:53:50 PM Referred By: MEGAN Confirmed By:MARCOS WEINSTEIN MD 05/27/18 1353 Date Marcos Weinstein MD CC: Stewart Recinos MD; Yesenia Crocker MD; Javad Vivas DO Signed DISCHARGE INSTRUCTION Observed: 05/26/2018 Status: F Source: [place] 6:[address] [facility] REPOSITORY [facility] Medical Records Department [address] [place] [address] Instructions for Home/Discharge Instructions 05/26/18 1538 MR#: [id number] Acct: [id number] Name: ANSLEY OLIVAS Rep #: [id number] : 1940 78 From: Javad Vivas DO PCP: Yesenia Crocker MD Status: DIS REBEKAH - Discharge Diagnoses Current Active Problems: Current Active and Chronic Problems Generalized weakness (Acute) Recurrent falls (Acute) Transient expressive aphasia (Acute) You will use the following diet at home:: No restrictions Your food should be the consistency of: Regular Your liquids should be the consistency of: Regular/Thin Discharge Activity: Return to Normal Activity Weight Bearing Status: Weight bearing as tolerated Allergies/Adverse Reactions: Allergies Sulfa (Sulfonamide Antibiotics) Allergy (Severe, Verified 02/26/18 07:51) Hives Medications to take at Discharge Sennosides/Docusate Sodium [Docusate Sodium-Senna Tablet] 1 ea PO PRN PRN 08/07/16 Omeprazole [Prilosec] 20 mg PO DAILY 10/23/16 Tamsulosin HCl [Flomax] 0.4 mg PO BID 10/23/16 Oxycodone [Oxyir] 5 mg PO Q8H PRN PRN #7 tab 10/28/16 Metoprolol Tartrate [Lopressor (beta keila)] 50 mg PO BID tab 11/03/16 Nepro Liquid [Nepro Carb Steady] 120 ml PO 4X/DAY liquid 05/26/18 Ondansetron HCl [Zofran] 4 mg PO Q6H PRN PRN #30 tab 05/26/18 The following prescriptions were given: Ondansetron HCl [Zofran] 4 mg PO Q6H PRN PRN #30 tab PRN Reason: Nausea Primary Care Physician: Yesenia Crocker MD [Primary Care Provider] - Please follow up with your Primary Care Physician in: in 3 weeks Test Results: Test results from this visit will be discussed in further detail at your follow-up appointment, if applicable. Please Follow Up With: Aleks Moore MD When: call for appointment 05/26/181810 <Electronically signed by Javad Vivas DO> Date Javad Vivas DO CC: Mark Garcia MD; Yesenia Crocker MD CAROTID DUPLEX Observed: 05/26/2018 Status: F Source: [place] ULTRASOUND 4:[address] [facility] REPOSITORY [facility] Cardiovascular Services [address] [place] [address] Carotid Duplex Ultrasound 05/26/18 1006 MR#: [id number] Acct: [id number] Name: ANSLEY OLIVAS Mirna Rep #: [id number] : 1940 78 From: Etienne Aguayo MD Attending Dr: Javad Vivas DO Status: DIS REBEKAH Ordering Dr: Artur Reddy MD Date: 05/26/18 Location: [facility] Sex: M C Admitted: 05/25/18 Reason For Study: TIA Rt. Velocities/BP Lt. Velocities/BP Prox CCA 70.9/12.9 cm/sec. Prox CCA 70.9/10.0 cm/sec. Mid CCA 65.1/8.8 cm/sec. Mid CCA 65.1/14.1 cm/sec. Dist CCA 62.1/10.6 cm/sec. Dist CCA 58.0/11.1 cm/sec. Prox ICA 89.7/15.2 cm/sec. Prox ICA 62.7/12.9 cm/sec. Mid ICA 79.3/15.2 cm/sec. Mid ICA 68.6/16.4 cm/sec. Dist ICA 68.6/12.9 cm/sec. Dist ICA 117.0/24.0 cm/sec. Rt. ICA/CCA = 1.4. Lt. ICA/CCA = 1.8. Prox ECA 92.0/5.9 cm/sec. Prox ECA 73.3/6.5 cm/sec. Rt. Vert. 68.6/12.9 cm/sec. Lt. Vert. 50.4/11.7 cm/sec. Right Extracranial There is heterogeneous, smooth atherosclerotic plaque noted in the right common carotid artery. There is heterogeneous, irregular atherosclerotic plaque noted in the right internal carotid artery. The atherosclerotic plaque causes acoustic shadowing. There is heterogeneous, smooth atherosclerotic plaque noted in the right external carotid artery. Antegrade flow is noted in the right vertebral artery. Left Extracranial There is heterogeneous, irregular atherosclerotic plaque noted in the left common carotid artery. There is no significant atherosclerotic plaque noted in the left internal carotid artery. There is intimal thickening but no significant atherosclerotic plaque noted in the left external carotid artery. Antegrade flow is noted in the left vertebral artery. Procedure Carotid Duplex 22379. The study was technically difficult. Exam performed portable in patient room. Interpretation Summary Minimal irregular plague at the proximal right internal carotid with <50% stenosis. No significant plague at the proximal left internal carotid with <50% stenosis. Normal flow bilateral external carotids Patent and antegrade vertebrals bilaterally Ordering Physician: Artur Reddy Referring Physician: Yesenia Crocker M.D. Performed By: Kendra Aponte RVT 05/26/18 1609 Date Etienne Aguayo MD CC: Yesenia Crocker MD; Javad Vivas DO; Artur Reddy MD Date Dictated: 05/26/18 1006 Date Transcribed: 05/26/18 1609 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: Signed CONSULTATION Observed: 05/26/2018 Status: F Source: [place] 2:[address] [facility] REPOSITORY [facility] Medical Records Department [address] [place] [address] Consultation 05/26/18 1412 MR#: [id number] Acct: [id number] Name: ANSLEY OLIVAS Rep #: [id number] : 1940 78 From: Ying Garcia MD PCP: Yesenia Crocker MD Status: ADM REBEKAH Y Location: [place] [address] Problem List (1) Generalized weakness Status: Acute Reason for Consult Date of Consultation: 05/26/18 Reason for Consultation: AMS History of Present Illness: The patient is a 78 year old CM with PMH HTN, ESRD on HD, nephrotic syndrome, ? H/O Stroke, H/O DVT both Internal jugular vein, morbid obesity admitted with generalized weakness. History is obtained from patient and his as well as medical records. Per he was coming out of the bathroom yesterday (05/25/18), was walking very slowly with walker and slid down, had a fall, no LOC or head injury and then did not speak anything at all, started speaking again when the squad came per . Denies any COATES, visual disturbances, sensory loss or focal motor weakness. At present patient is not oriented to time, but per is almost back to his baseline, denies any neck pain, low back pain, denies frequent falls, per has fallen about twice in the last 6 months, does not drive and does need assistance for his activity of daily living. Per he was on Coumadin for DVT of internal jugular vein but was taken off by his senior data architect about 2 months ago since he was bruising a lot, is not on ASA at baseline. MRI brain done on admission reported nothing acute. Labs reviewed: UA: turbid, LE -500 H, urine WBC-50-100, bacteria +1, AST/ALT 62/74 H, CRP-4.33, Na-138, K-3.7, creatinine-3.72, WBC-3.2, Plt count-99, Hb-10.5. Past Medical History Past Medical History (Chronic Problems): Chronic Problems Morbid obesity (Chronic) Chronic renal disease, stage IV (Chronic) Benign prostatic hypertrophy (Chronic) Hypertension (Chronic) Nephrotic syndrome (Chronic) Medical History: Medical History ESRD (end stage renal disease) (Acute) N18.6 DVT of bilateral internal jugular veins (Acute) Morbid obesity (Chronic) E66.01 Chronic renal disease, stage IV (Chronic) N18.4 Benign prostatic hypertrophy (Chronic) N40.0 Hypertension (Chronic) I10 Nephrotic syndrome (Chronic) N04.9 Allergies Sulfa (Sulfonamide Antibiotics) Allergy (Severe, Verified 02/26/18 07:51) Hives Home Medications: Ambulatory Orders Medication Instructions Recorded Sennosides/Docusate Sodium 1 ea PO PRN PRN 08/07/16 [Docusate Sodium-Senna Tablet] Dicyclomine HCl 20 mg PO TIDCM 10/23/16 Omeprazole [Prilosec] 20 mg PO DAILY 10/23/16 Surgical History: Surgical History (Last Updated 02/23/18 @ 15:41 by Kati Dorsey) Presence of surgically created arteriovenous shunt for hemodialysis Z99.2 LUE Surgical History: colectomy - bowel obstruction-remote Lives: Spouse/ Significant Other Smoking Status: Former smoker Alcohol: None Drugs: None - *Family History Maternal History Items: No pertinent history Paternal History Items: No pertinent history Review of Systems Constitutional: Reports: - - complete ROS negative except as documented in HPI Patient Problems: Active and Suspected Problems Generalized weakness (Acute) Recurrent falls (Acute) Transient expressive aphasia (Acute) - Physical Exam General: - - drowsy, but easily arousable, AoA x2 HEENT: Normocephalic Neck: Supple Lungs: Normal air movement Cardiovascular: Normal S1, Normal S2 Abdomen: Bowel Sounds Present Extremities: No cyanosis Musculoskeletal: No Tenderness to Palpation of Joints or Extremities Neurological: - - drowsy but easily arousable, AoAx2, follows VC, CN 2-12 grossly intact, power 5/5 all 4 extremities, no sensory loss, no cerebellar signs, Reflexes + B/L B/S/T/K/A, gait deferred Psych/Mental Status: Normal Affect Vital Signs Temp Pulse Resp BP Pulse Ox 98.0 F 59 L 20 H 120/59 L 97 05/26/18 12:15 05/26/18 12:15 05/26/18 12:15 05/26/18 12:15 05/26/18 12:15 Oxygen Delivery Method Room Air Weight: 86.4 kg Body Mass Index (BMI) 35.9 Intake and Output for Last 24 Hours Intake Total 120 / 120 480 / 480 Balance 120 / 120 480 / 480 Laboratory Tests Past 24 Hrs WBC RBC Hgb Hct MCV MCH MCHC RDW RDW Differential Plt Count WBC 3.2 L RBC 3.52 L Hgb 10.5 L Hct 32.7 L MCV 92.9 MCH 29.8 MCHC 32.1 RDW 15.3 H POC Glucose POC Glucose 131 H 88 98 Assessment/Plan All Active Problems Generalized weakness (Acute) Recurrent falls (Acute) Transient expressive aphasia (Acute) ESRD (end stage renal disease) (Acute) DVT of bilateral internal jugular veins (Acute) The patient is a 78 year old CM with PMH HTN, ESRD on HD, nephrotic syndrome, ? H/O Stroke, H/O DVT both Internal jugular vein, morbid obesity admitted with generalized weakness. History is obtained from patient and his as well as medical records. Per he was coming out of the bathroom yesterday (05/25/18), was walking very slowly with walker and slid down, had a fall, no LOC or head injury and then did not speak anything at all, started speaking again when the squad came per . Denies any COATES, visual disturbances, sensory loss or focal motor weakness. At present patient is not oriented to time, but per is almost back to his baseline, denies any neck pain, low back pain, denies frequent falls, per has fallen about twice in the last 6 months, does not drive and does need assistance for his activity of daily living. Per he was on Coumadin for DVT of internal jugular vein but was taken off by his senior data architect about 2 months ago since he was bruising a lot, is not on ASA at baseline. MRI brain done on admission reported nothing acute. Labs reviewed: UA: turbid, LE -500 H, urine WBC-50-100, bacteria +1, ASST/ALT 62/74 H, CRP-4.33, Na-138, K-3.7, creatinine-3.72, WBC-3.2, Plt count-99, Hb-10.5. Impression Generalized weakness Metabolic encephalopathy Plan -Started on ASA and lipitor by primary team. This event is unlikely to be a vascular event -LFTs are altered, avoid high statins if possible, will defer to primary team. -UTI management per primary team -MRI brain reviewed- no stroke -PT/OT/ST -GI/DVT prophylaxis -Fall precautions -Further medical management per primary team. -Please call with questions if any -Thank you for allowing us to participate in patient's care and management I spent 60 minutes taking history, doing physical examination, reviewing medical records, coordinating care and counseling the patient. Code Visit Inpatient E AND M: 51693 Init Hosp L3 05/26/18 3587 <Electronically signed by Ying Garcia MD> Date Ying Garcia MD Cosigner Signature (if applicable): Date CC: Mark Garcia MD; Yesenia Crocker MD Signed BEDSIDE GLUCOSE Collected: 05/26/2018 Status: F Source: [place] 11:[address] [facility] REPOSITORY TYPE CODE TESTS RESULT OUT OF REFERENCE UNITS RANGE LAB L501.080 70-110 mg/dL High BEDSIDE GLU 131 Result Comment: MANAGEMENT OF PATIENT CARE PER NURSING PROTOCOL Performed By: #### L501.080 #### [place] [facility] Point of Care [address] [place], [place] [address] BEDSIDE GLUCOSE Collected: 05/26/2018 Status: F Source: [place] 6:[address] [facility] REPOSITORY TYPE CODE TESTS RESULT OUT OF RANGE REFERENCE UNITS LAB L501.080 70-110 mg/dL Normal BEDSIDE GLU 88 Result Comment: MANAGEMENT OF PATIENT CARE PER NURSING PROTOCOL Performed By: #### L501.080 #### [facility] Point of Care [address] [place], [place] [address] CBC-COMPLETE BLOOD CNT Collected: 05/26/2018 Status: F Source: [place] NO DIFF 5:[address] [facility] REPOSITORY TYPE CODE TESTS RESULT OUT OF RANGE REFERENCE UNITS LAB L100.1000 4.4-11.0 K/mm3 Low WBC 3.2 LAB L100.1200 4.6-6.2 M/mm3 Low RBC 3.52 LAB L100.1300 13.0-16.5 g/dl Low HGB 10.5 LAB L100.1400 40-54 % Low HCT 32.7 LAB L100.1500 80-94 fL Normal MCV 92.9 LAB L100.1600 27.0-32.0 pg Normal MCH 29.8 LAB L100.1700 32-36 g/gl Normal MCHC 32.1 LAB L100.1810 11.6-14.6 % High RDW CV 15.3 LAB L100.1820 35.1-43.9 fl High RDW SD 49.5 LAB L100.1900 150-450 K/mm3 Low PLT 99 LAB L100.2000 6.2-12.0 fl Normal MPV 9.0 Performed By: #### L100.0500 #### [facility] [address] [place], [place], [address] BASIC METABOLIC Collected: 05/26/2018 Status: F Source: [place] PROFILE (BMP) 5:[address] [facility] REPOSITORY TYPE CODE TESTS RESULT OUT OF RANGE REFERENCE UNITS LAB L501.0100 74-106 mg/dL Normal GLU 87 Result Comment: Please note revised GLUCOSE reference range effective 2017. LAB L501.1000 7-18 mg/dL High BUN 19 LAB L501.1100 0.70-1.30 mg/dL High CREAT,SERUM 3.72 Result Comment: The validity of the calculated GFR AND GFRAA in patients over 70 years has not been determined. Clinical correlation is essential. LAB L501.1110 >60 mL/min Low EST GFR 17 Result Comment: Non- GFR Calc LAB L501.1115 >60 mL/min Low EST GFR - AA 20 Result Comment: GFR Calc LAB L501.1255 ml/min Normal Estimated CRCL 11.91 LAB L501.1300 10-20 RATIO Low BUN/CRE 5.1 LAB L501.2200 8.5-10 mg/dL Normal .1 CA 10.0 LAB L501.5300 136-14 mmol/L Normal 5 NA 138 LAB L501.5600 3.5-5. mmol/L Normal 1 K 3.7 LAB L501.5900 98-107 mmol/L Normal CL 103 LAB L501.6100 21.0-3 mmol/L Normal 2.0 CO2 29.0 LAB L501.6200 5-15 Normal GAP 6 Performed By: #### L500.2500, L500.4100, L501.6710, L506.0250 #### [facility] [address] [facility] [place], [place], [id number] LIPID PROFILE Collected: 05/26/2018 Status: F Source: [place] 5:[address] [facility] REPOSITORY TYPE CODE TESTS RESULT OUT OF RANGE REFERENCE UNITS LAB L501.4900 200 mg/dL Normal CHOL 81 Result Comment: <200 mg/dL Desirable 200-240 mg/dL Borderline >240 mg/dL High Risk LAB L501.5000 mg/dL Normal TRIG 81 Result Comment: The drugs N-Acetylcysteine and Metamizole may falsely depress this assay. Serum Triglycerides Reference Interval Normal <150 mg/dL Borderline high 150 - 199 mg/dL High 200 - 499 mg/dL Very High > or = 500 mg/dL LAB L501.6400 mg/dL Low HDL 26 Result Comment: The drugs N-Acetylcysteine and Metamizole may falsely depress this assay. Reference Range HDL <40 mg/dL Low HDL Cholesterol HDL >or= 60 mg/dL High HDL Cholesterol LAB L501.6500 0-130 mg/dL Normal LDL 39 LAB L501.6600 5-40 mg/dL Normal VLDL 16 Performed By: #### L500.2500, L500.4100, L501.6710, L506.0250 #### [facility] [address] [place], [place], [id number] CRP Collected: 05/26/2018 Status: F Source: [place] 5:[address] [facility] REPOSITORY TYPE CODE TESTS RESULT OUT OF RANGE REFERENCE UNITS LAB L501.6710 0.0-3.0 mg/L High 4.33 C-REACTIVE PROT Result Comment: C-Reactive Protein (CRP) provides useful information for the diagnosis, therapy and monitoring of inflammatory processes and associated diseases. For the evaluation of Relative Risk for Cardiovascular Disease, a High Sensitivity CRP (HSCRP) should be ordered. Performed By: #### L500.2500, L500.4100, L501.6710, L506.0250 #### [facility] [address] [place], [address] FOLATES, (FOLIC ACID) Collected: 05/26/2018 Status: F Source: [place] 5:[address] [facility] REPOSITORY TYPE CODE TESTS RESULT OUT OF RANGE REFERENCE UNITS LAB L506.0250 3.1-55.4 ng/mL Normal FOLATES 8.70 Performed By: #### L500.2500, L500.4100, L501.6710, L506.0250 #### [facility] [address] [place], [address] HEMOGLOBIN A1C Collected: 05/26/2018 Status: F Source: [place] 5:[address] [facility] REPOSITORY TYPE CODE TESTS RESULT OUT OF RANGE REFERENCE UNITS LAB L501.9985 4.2-6.3 % Normal HGB A1C 4.2 Performed By: #### L501.9985 #### [facility] [address] [place], [address] VITAMIN B12 Collected: 05/26/2018 Status: F Source: [place] 5:[address] [facility] REPOSITORY TYPE CODE TESTS RESULT OUT OF RANGE REFERENCE UNITS LAB L503.0105 211-911 pg/mL Normal Vitamin B12 277 Performed By: #### L503.0105 #### [facility] [address] [place], [address] URINALYSIS, COMPLETE Collected: 05/26/2018 Status: F Source: [place] 4:[address] [facility] REPOSITORY Order Comment: Microscopic field is filled. Other elements may be obscured. How was Urine Obtained? SPECIAL SERVICES COORDINATOR TO SPECIFY TYPE CODE TESTS RESULT OUT OF RANGE REFERENCE UNITS LAB L400.3000 Yellow COLOR Normal Yellow LAB L400.3050 Clear Normal CLARITY Turbid LAB L400.3200 Normal mg/dl Normal GLUCOSE, UR Normal LAB L400.3300 Negative mg/dL Normal BILIRUBIN URINE Negative LAB L400.3400 Negative mg/dl Normal KETONE UR Negative LAB L400.3465 1.002-1.030 Normal SP.GR. DIPSTX 1.010 LAB L400.3550 5.0 - 8.0 pH UR Normal 8.0 LAB L400.3600 Negative mg/dl High PROT DIPSTX 500 LAB L400.3700 Normal mg/dl Normal UROBILI Normal LAB L400.3750 Negative Normal NITRITE UR Negative LAB L400.3780 Negative /ul High OCCULT BLOOD-UR 250 LAB L400.3800 Negative /ul High LEUK ESTERASE 500 LAB L400.4050 0-5 /hpf WBC Normal 50-100 SEEN LAB L400.4100 0-5 /hpf Normal RBC-UA 0-5 SEEN LAB L400.4150 0-5 /hpf SQUAM Normal EPI 0-5 SEEN LAB L400.4300 None Seen /hpf 1+ Normal BACTERIA LAB L400.4350 <or=2+ /hpf 0 Normal MUCUS, URINE SEEN Performed By: #### L400.0001 #### [facility] [address] [facility] [place], [address] EMERGENCY DEPARTMENT Observed: 05/26/2018 Status: F Source: [place] SUMMARY 12:[address] [facility] REPOSITORY [facility] Medical Records Department [address] [place] [address] Emergency Department Summary 05/25/18 1607 MR#: [id number] Acct: [id number] Name: ANSLEY OLIVAS Rep #: [id number] : 1940 78 From: Stewart Recinos MD PCP: Yesenia Crocker MD Status: ADM REBEKAH - ER Visit Summary Date of Service: 05/25/18 Chief Complaint: Weakness History of Present Illness: The patient is a 78 M with generalized weakness that started gradually this morning. He was having increasing difficulty moving and walking, and his noted he continued to get worse throughout the day. She had to help him to the ground when he almost fell, just prior to arrival. She also noted that he was having trouble expressing himself through speech. No slurred speech. No vision changes. No facial droop. No unilateral weakness or numbness. No history of this before. He has a history of end-stage renal disease and is on hemodialysis. He is a former smoker. Physical Examination: Afebrile and vital signs unremarkable. Head and neck atraumatic. HEENT exam on room equal. Neck nontender. Heart regular. Lungs clear. Abdomen soft. Skin slightly pale. NIH stroke scale is 0. Test Results: EKG, chest x-ray, CT brain, labs, urinalysis pending. Emergency Department Course and Treatment: Patient does not meet criteria for stroke team or TPA. The generalized weakness could be a result of multiple etiologies. He does not appear to have any trauma. Workup showed pancytopenia. This is not new. Creatinine 3.52. Coags normal. Troponin normal. Chest x-ray showed no acute findings. CT head showed chronic changes. Patient had no change or deterioration in the emergency department. He is unable to walk secondary to generalized weakness. Per his , he had trouble finding words and expressing himself. I am unsure if this was truly expressive aphasia. He had no other stroke symptoms or findings. Patient was discussed with the hospitalist and will be admitted. Treatment Plan: As above Disposition: Admission Impression: 1. Generalized weakness 2. Expressive aphasia, resolved This note was generated with [employer] dictation software. It may contain incorrect words, spelling, and punctuation that were not noted in review of the chart prior to signing ED Disposition - Plan for ED Patient: Chief Complaint: Fall Referrals: Yesenia Crocker MD [Primary Care Provider] - What to do if you have Problems For any increased pain, shortness of breath, bleeding, nausea or vomiting, chest pain, or any unexpected problems, contact your Primary Care Provider. Call [facility] ([phone]) or report to the closest Emergency Room. Call 911 if necessary. 05/26/18 0003 <Electronically signed by Stewart Recinos MD> Date Stewart Recinos MD Cosigner Signature (If Indicated): Date CC: Yesenia Crocker MD BEDSIDE GLUCOSE Collected: 05/25/2018 Status: F Source: [place] 11:[address] [facility] REPOSITORY TYPE CODE TESTS RESULT OUT OF RANGE REFERENCE UNITS LAB L501.080 70-110 mg/dL Normal BEDSIDE GLU 98 Result Comment: MANAGEMENT OF PATIENT CARE PER NURSING PROTOCOL Performed By: #### L501.080 #### [facility] Point of Care [address] [facility] [place] [address] LIVER PROFILE Collected: 05/25/2018 Status: F Source: [place] 9:[address] [facility] REPOSITORY TYPE CODE TESTS RESULT OUT OF RANGE REFERENCE UNITS LAB L501.1500 6.4-8.2 g/dL Normal T PROT 6.5 LAB L501.1800 3.2-5.0 g/dL Low ALB 2.4 LAB L501.1950 2.2-4.2 g/dL Normal GLOB 4.1 LAB L501.4100 15-37 U/L High AST 62 LAB L501.4305 45-117 U/L High ALK P 126 LAB L501.4405 16-61 U/L High ALT 74 LAB L501.4600 0.20-1.00 mg/dL Normal T BILI 0.60 LAB L501.4700 0.00-0.30 mg/dL High D BILI 0.37 Performed By: #### L500.3400, L501.4010, L501.9520 #### [facility] [address] [place], [address] TROPONIN-I Collected: 05/25/2018 Status: F Source: C[place] 9:[address] [facility] REPOSITORY TYPE CODE TESTS RESULT OUT OF RANGE REFERENCE UNITS LAB L501.4010 <0.045 ng/mL Normal < 0.015 TROPONIN-I Result Comment: TROPONIN-I EXPECTED VALUES <0.045 Negative 0.045 - 0.590 Consistent with Cardiac Damage > OR = 0.600 Critical Value Not every elevated troponin is indicative of VT. These values should be used with clinical judgement in examining the patient's clinical picture for diagnosis. To establish a diagnosis of VT versus myocardial injury, there must be a demonstrated rise and/or fall in the troponin values, in addition to ischemic symptoms, EKG changes, new regional wall motion abnormality, and/or angiographical evidence. PLEASE NOTE: REFERENCE RANGES EDITED 18 Performed By: #### L500.3400, L501.4010, L501.9520 #### [facility] [address] [place], [address] THYROID STIM HORMONE Collected: 05/25/2018 Status: F Source: C[place]ANDRA (TSH) 9:[address] [facility] REPOSITORY TYPE CODE TESTS RESULT OUT OF RANGE REFERENCE UNITS LAB L501.9520 0.358-3.74 uIU/mL Normal TSH 2.84 Performed By: #### L500.3400, L501.4010, L501.9520 #### [facility] [address] [place], [address] HISTORY AND PHYSICAL Observed: 05/25/2018 Status: F Source: C[place] EXAM 8:[address] [facility] REPOSITORY [facility] Medical Records Department [address] [place] [address] History and Physical 05/25/182033 MR#: [id number] Acct: [id number] Name: ANSLEY OLIVAS Rep #: [id number] : 1940 78 From: Artur Reddy MD PCP: Yesenia Crocker MD Status: ADM REBEKAH Y Location: [place] [address] Problem List (1) Generalized weakness Status: Acute (2) Recurrent falls Status: Acute (3) Transient expressive aphasia Status: Acute (4) ESRD (end stage renal disease) Status: Acute (5) DVT of bilateral internal jugular veins Status: Acute (6) Morbid obesity Status: Chronic (7) Chronic renal disease, stage IV Status: Chronic (8) Benign prostatic hypertrophy Status: Chronic (9) Hypertension Status: Chronic (10) Nephrotic syndrome Status: Chronic History of Present Illness Date of Admission: 05/25/18 Chief Complaint: Fall and expresses aphasia The patient is a 78 year old M with multiple comorbidities as mentioned above including ESRD on hemodialysis, Thursday, and Thursday by Dr. Cabrera was brought into ER by EMS for generalized weakness, fall and transient aphasia as per the . He was trying to go to bathroom but he slid on walker and supported by on the floor. He was not able to lift his legs. At that time, was not able to express himself but was able to hear as per the . he denies headache, loss of vision, difficulty in writing or reading but had transient blurring of vision. Denies any previous history of VT, stroke, or chronic lung disease. [] In ED, his vitals were stable. EKG shows normal sinus rhythm at 66 bpm with sinus arrhythmia. Previous EKG of November 2016 was similar with PVCs and PACs. In ED, CT had does not show acute change. Chest x-ray no evidence of acute cardiopulmonary disease. Past Medical History Past Medical History (Chronic Problems): Chronic Problems Morbid obesity (Chronic) Chronic renal disease, stage IV (Chronic) Benign prostatic hypertrophy (Chronic) Hypertension (Chronic) Nephrotic syndrome (Chronic) Medical History: Medical History ESRD (end stage renal disease) (Acute) N18.6 DVT of bilateral internal jugular veins (Acute) Morbid obesity (Chronic) E66.01 Chronic renal disease, stage IV (Chronic) N18.4 Benign prostatic hypertrophy (Chronic) N40.0 Hypertension (Chronic) I10 Nephrotic syndrome (Chronic) N04.9 Allergies Sulfa (Sulfonamide Antibiotics) Allergy (Severe, Verified 02/26/18 07:51) Hives Home Medications: Ambulatory Orders Medication Instructions Recorded Sennosides/Docusate Sodium 1 ea PO PRN PRN 08/07/16 [Docusate Sodium-Senna Tablet] Dicyclomine HCl 20 mg PO TIDCM 10/23/16 Omeprazole [Prilosec] 20 mg PO DAILY 10/23/16 Surgical History: Surgical History (Last Updated 02/23/18 @ 15:41 by Kati Dorsey) Presence of surgically created arteriovenous shunt for hemodialysis Z99.2 LUE Surgical History: colectomy - bowel obstruction-remote Smoking Status: Former smoker - *Family History Maternal History Items: No pertinent history Paternal History Items: No pertinent history Review of Systems Constitutional: Denies: Chills, Fever, Weight Change HEENT: Denies: Head Aches, Sinus Congestion, Sinus Drainage Cardiovascular: Denies: Chest Pain, Palpitations Respiratory: Denies: Cough, Shortness of breath at rest, Sputum production Gastrointestinal: Denies: Abdominal Pain, Nausea, Vomiting Genitourinary: Denies: Dysuria Musculoskeletal: Denies: Joint Pain, Joint Tenderness Skin: Denies: Rash, Wounds Neurological: Reports: Balance problems, Blurred vision, Change in Speech, Confusion, Incoordination. Denies: Focal weakness, Numbness, Tingling Psychiatric: Denies: Anxiety, Depression, Homicidal Ideations, Suicidal Ideations Hematologic/ Lymphatic: Denies: Easy Bruising, Easy Bleeding VTE Information - Inpt Only VTE Present on Admission: No VTE Mechan Device Prophylaxis: SCD's VTE Pharm Prophylaxis ordered?: Yes Patient Problems: Active and Suspected Problems Generalized weakness (Acute) Recurrent falls (Acute) Transient expressive aphasia (Acute) - Physical Exam General: Alert, Oriented x3, Cooperative HEENT: Atraumatic, PERRLA, EOMI, Normocephalic Neck: Supple, No JVD, Negative Carotid Bruits Lungs: Clear to auscultation, Normal air movement Cardiovascular: Regular rate, Normal S1, Normal S2, No murmurs Abdomen: Bowel Sounds Present, Soft, Non Tender, Non-Distended Extremities: No edema, Capillary Refill Less than 3 Seconds Skin: No rashes, No breakdown Musculoskeletal: No Tenderness to Palpation of Joints or Extremities, Arthritic Changes Neurological: Cranial nerves II-XII grossly intact, - - Muscle strength 4 x 5 in both lower extremities. NIH stroke scale 2, slight weakness in both lower extremities. No facial droop. No dysarthria or aphasia. Psych/Mental Status: Normal Affect, Appropriate Vital Signs Temp Pulse Resp BP Pulse Ox 99.0 F 63 18 148/68 H 95 05/25/18 16:02 05/25/18 20:00 05/25/18 20:00 05/25/18 20:00 05/25/18 20:00 Oxygen Delivery Method Room Air Weight: 229 lb 4.492 oz Body Mass Index (BMI) 43.3 Finger Stick Blood Glucose 116 Laboratory Tests Past 24 Hrs WBC 3.4 L POC Glucose POC Glucose 116 H Assessment/Plan All Active Problems Generalized weakness (Acute) Recurrent falls (Acute) Transient expressive aphasia (Acute) ESRD (end stage renal disease) (Acute) DVT of bilateral internal jugular veins (Acute) he patient is a 78 year old M with multiple comorbidities as mentioned above including ESRD on hemodialysis, Thursday, and Thursday by Dr. Cabrera was brought into ER by EMS for generalized weakness, fall and transient aphasia as per the . He was trying to go to bathroom but he slid on walker and supported by on the floor. He was not able to lift his legs. At that time, was not able to express himself but was able to hear as per the . he denies headache, loss of vision, difficulty in writing or reading but had transient blurring of vision. Denies any previous history of VT, stroke, or chronic lung disease. [] In ED, his vitals were stable. EKG shows normal sinus rhythm at 66 bpm with sinus arrhythmia. Previous EKG of November 2016 was similar with PVCs and PACs. In ED, CT had does not show acute change. Chest x-ray no evidence of acute cardiopulmonary disease. 1. Generalized weakness, mainly bilateral lower extremity weakness and transient expressive aphasia, rule out TIA/stroke: Patient is being admitted on PCU. Stroke workup including MRI brain, carotid Doppler and echo ordered. PT, OT and speech evaluation. Neurology evaluation tomorrow a.m. If MRI is positive of a stroke, can have CT angiogram of head and neck but will need dialysis afterwards. BP and glucose control as per stroke guidelines. Currently controlled. CRP and A1c tomorrow a.m. 2. ESRD on hemodialysis, Thursday and Thursday. Electrolytes within normal limit. Can have outpatient dialysis as per schedule if he is discharged prior to . BMP tomorrow a.m. 3. Mild leukopenia, anemia of chronic disease probably due to ESRD and mild thrombocytopenia: Follow-up CBC tomorrow a.m. If hemoglobin or platelet count drops, discontinue heparin subcutaneous. Folic acid and B12 ordered. CBC ordered for tomorrow a.m. Hypertension, nephrotic syndrome leading to ESRD on hemodialysis, morbid obesity and history of DVT of bilateral internal jugular vein probably due to hemodialysis catheter in October 2016: Home medication reconciliation done. DVT prophylaxis: On heparin 5000 units subcu units twice daily, started from tomorrow a.m. and bilateral SCDs. This note was generated with [employer] software. Every effort was made to ensure accuracy, however computerized secretary board of commissioners mistakes may persist. Laboratory Results 05/25/18 16:40: WBC 3.4 L, RBC 3.77 L, Hgb 10.7 L, Hct 34.8 L, MCV 92.3, MCH 28.4, MCHC 30.7 L, RDW 15.5 H, RDW Differential 52.5 H, Plt Count 102 L, MPV 9.0, Immature Gran % (Auto) 0.000, Neut % (Auto) 61.2, Lymph % (Auto) 24.0, Clare % (Auto) 12.4 H, Eos % (Auto) 2.1, Baso % (Auto) 0.3, Absolute Neuts (auto) 2.1, Absolute Lymphs (auto) 0.81 L, Total Counted Not Reportable 05/25/18 16:40: PT 15.0 H, INR 1.2, APTT 29.6 05/25/18 16:40: Sodium 138, Potassium 3.8, Chloride 101, Carbon Dioxide 29.0, Anion Gap 8, BUN 15, Creatinine 3.52 H, Estim Creat Clear Calc 12.59, Est GFR (MDRD) Af Amer 22 L, Est GFR (MDRD) Non-Af 18 L, BUN/Creatinine Ratio 4.3 L, Glucose 118 H, Calcium 9.8, Troponin I < 0.015 05/25/18 16:57: POC Glucose 116 H Clinical Impression(s) from Imaging Studies Brain CT 05/25/18 16:05 IMPRESSION: Chronic involutional changes without evidence of acute intracranial or calvarial abnormality. There is no significant interval change. There is strong concern for stroke, MRI is recommended. Chest X-Ray 05/25/18 16:25 IMPRESSION: 1. No evidence of acute cardiopulmonary disease. There is resolution of the vascular congestion seen in the prior study. 2. Removal of the right jugular hemodialysis catheter since the previous examination. Code Visit Inpatient E AND M: 56157 Init Hosp L3 05/25/182049 <Electronically signed by Artur Reddy MD> Date Artur Reddy MD Cosigner Signature: Date (if applicable) CC: Yesenia Crocker MD; Artur Reddy MD Signed BRAIN WITHOUT Observed: 05/25/2018 Status: F Source: FALGUNI CONTRAST 8:[address] [facility] REPOSITORY [facility] Imaging Services [address] [place] [address] Brain without Contrast MR#: [id number] Acct: [id number] Name: ANSLEY OLIVAS Rep #: [id number] : 1940 M 78 From: Cleo Flores PCP: Yesenia Crocker MD Status: ADM REBEKAH Study: Brain without Contrast Date of Exam: 05/25/18 Exam# [id number] Ordering Dr: Artur Reddy MD STUDY: MRI BRAIN WITHOUT CONTRAST REASON FOR EXAM: Male, 78 years old. tia, generalized weakness. TECHNIQUE: Standardized multiplanar fat and water weighted pulse sequences were obtained. COMPARISON: None. FINDINGS: There is mild cerebral atrophy with widening of the extra- axial spaces and ventricular dilatation. There are multiple white matter hyperintensities, distributed throughout the deep white matter tracts of the cerebral hemispheres, consistent with moderate chronic white matter ischemic changes. Normal bilateral basal ganglia. Normal thalami. There is no extra-axial fluid accumulation. Normal flow voids within the major intracranial circulation suggesting patency by spin echo criteria. Normal sella turcica, pituitary gland, infundibular stalk, optic chiasm and hypothalamus. Normal tectal plate and pineal gland. Normal midbrain, rico and medulla. Normal cerebellum. Normal basal cisterns. There is bilateral mastoid fluid. MRI/Brain without Contrast IMPRESSION: No acute intracranial abnormality. Moderate involutional changes. Electronically Signed: Cleo Flores MD at 11:38 EDT Tel , Service support , CC: Yesenia Crocker MD; Artur Reddy MD 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: Signed BEDSIDE GLUCOSE Collected: 05/25/2018 Status: F Source: FALGUNI 4:[address] [facility] REPOSITORY TYPE CODE TESTS RESULT OUT OF REFERENCE UNITS RANGE LAB L501.080 70-110 mg/dL High BEDSIDE GLU 116 Result Comment: MANAGEMENT OF PATIENT CARE PER NURSING PROTOCOL Performed By: #### L501.080 #### [facility] Point of Care Mauricio Parrish [place], [place] [address] CBC W/DIFF, AUTOMATED Collected: 05/25/2018 Status: F Source: C[place]A 4:[address] [facility] REPOSITORY TYPE CODE TESTS RESULT OUT OF RANGE REFERENCE UNITS LAB L100.1000 4.4-11.0 K/mm3 Low WBC 3.4 LAB L100.1200 4.6-6.2 M/mm3 Low RBC 3.77 LAB L100.1300 13.0-16.5 g/dl Low HGB 10.7 LAB L100.1400 40-54 % Low HCT 34.8 LAB L100.1500 80-94 fL Normal MCV 92.3 LAB L100.1600 27.0-32.0 pg Normal MCH 28.4 LAB L100.1700 32-36 g/gl Low MCHC 30.7 LAB L100.1810 11.6-14.6 % High RDW CV 15.5 LAB L100.1820 35.1-43.9 fl High RDW SD 52.5 LAB L100.1900 150-450 K/mm3 Low PLT 102 LAB L100.2000 6.2-12.0 fl Normal MPV 9.0 LAB L100.2100 47-70 % Normal NEUT% 61.2 LAB L100.2200 19-41 % Normal LY% 24.0 LAB L100.2300 0-10 % High MONO% 12.4 LAB L100.2400 0-5 % Normal EO% 2.1 LAB L100.2500 0-1 % Normal BASO% 0.3 LAB L100.2550 0.0-0.9 % Normal IM GRAN % 0.000 Result Comment: IG% - Immature Granulocytes (promyelocytes, myelocytes and metamyelocytes) > 1% indicates that a LEFT SHIFT is Present. LAB L100.2620 2.0-7.7 X10 3/uL Normal Absolute Neut 2.1 LAB L100.2720 0.83-4.51 X10 3/ul Low Absolute Lymph 0.81 Performed By: #### L100.0100 #### [facility] [address] [facility] [place], [place], [address] BASIC METABOLIC Collected: 05/25/2018 Status: F Source: [place] PROFILE (BMP) 4:[address] [facility] REPOSITORY TYPE CODE TESTS RESULT OUT OF RANGE REFERENCE UNITS LAB L501.0100 74-106 mg/dL High GLU 118 Result Comment: Fasting Glucose result from 100 to 125 mg/dL suggests IMPAIRED HOMEOSTASIS per A.D.A. criteria. Please note revised GLUCOSE reference range effective 2017. LAB L501.1000 7-18 mg/dL Normal BUN 15 LAB L501.1100 0.70-1.30 mg/dL High CREAT,SERUM 3.52 Result Comment: The validity of the calculated GFR AND GFRAA in patients over 70 years has not been determined. Clinical correlation is essential. LAB L501.1110 >60 mL/min Low EST GFR 18 Result Comment: Non- GFR Calc LAB L501.1115 >60 mL/min Low EST GFR - AA 22 Result Comment: GFR Calc LAB L501.1255 ml/min Normal Estimated CRCL 12.59 LAB L501.1300 10-20 RATIO Low BUN/CRE 4.3 LAB L501.2200 8.5-10 mg/dL Normal .1 CA 9.8 LAB L501.5300 136-14 mmol/L Normal 5 NA 138 LAB L501.5600 3.5-5. mmol/L Normal 1 K 3.8 LAB L501.5900 98-107 mmol/L Normal CL 101 LAB L501.6100 21.0-3 mmol/L Normal 2.0 CO2 29.0 LAB L501.6200 5-15 Normal GAP 8 Performed By: #### L500.2500, L501.4010 #### [facility] [address] [place], [address] TROPONIN-I Collected: 05/25/2018 Status: F Source: [place] 4:[address] [facility] REPOSITORY TYPE CODE TESTS RESULT OUT OF RANGE REFERENCE UNITS LAB L501.4010 <0.045 ng/mL Normal < 0.015 TROPONIN-I Result Comment: TROPONIN-I EXPECTED VALUES <0.045 Negative 0.045 - 0.590 Consistent with Cardiac Damage > OR = 0.600 Critical Value Not every elevated troponin is indicative of VT. These values should be used with clinical judgement in examining the patient's clinical picture for diagnosis. To establish a diagnosis of VT versus myocardial injury, there must be a demonstrated rise and/or fall in the troponin values, in addition to ischemic symptoms, EKG changes, new regional wall motion abnormality, and/or angiographical evidence. PLEASE NOTE: REFERENCE RANGES EDITED 18 Performed By: #### L500.2500, L501.4010 #### [facility] [address] [facility] [place], [address] PROTHROMBIN TIME W/INR Collected: 05/25/2018 Status: F Source: [place]A 4:[address] [facility] REPOSITORY TYPE CODE TESTS RESULT OUT OF RANGE REFERENCE UNITS LAB L300.4150 11.7-14.9 SECONDS High PROTIME 15.0 LAB L300.4200 Normal INR 1.2 Performed By: #### L300.3900, L300.4310 #### [facility] [address] [facility] [place], [address] PARTIAL THROMBOPLAST Collected: 05/25/2018 Status: F Source: [place] TIME 4:[address] [facility] REPOSITORY TYPE CODE TESTS RESULT OUT OF RANGE REFERENCE UNITS LAB L300.4310 24.1-36.2 Seconds Normal PTT 29.6 Performed By: #### L300.3900, L300.4310 #### [facility] [address] [facility] [place], [address] CHEST 1 VIEW Observed: 05/25/2018 Status: F Source: C[place]A 4:[address] [facility] REPOSITORY [facility] Imaging Services [address] [place] [address] Chest 1 View MR#: [id number] Acct: [id number] Name: ANSLEY OLIVAS R Rep #: [id number] : 1940 M 78 From: Sid Hernandez DO PCP: Yesenia Crocker MD Status: PRE ER Study: Chest 1 View Date of Exam: 05/25/18 Exam# [id number] Ordering Dr: Stewart Recinos MD STUDY: X-RAY CHEST REASON FOR EXAM: Male, 78 years old. Stroke. TECHNIQUE: Single AP portable view of the chest. COMPARISON: January 06, 2017. FINDINGS: The right jugular hemodialysis catheter, present on the prior study is no longer present. There is a mildly improved inspiratory effort when compared to prior study. There is no evidence of acute infiltrate or mass. There is no demonstrated pleural abnormality. Normal size heart. Normal mediastinum and marcia. Normal visualized pulmonary arteries. Normal visualized aortic arch and descending thoracic aorta. The thoracic spine is obscured by the mediastinum. There is degenerative osteoarthritis of the bilateral shoulders. There is no demonstrated abnormality of the visualized soft tissue structures of the upper abdomen. RAD/Chest 1 View IMPRESSION: 1. No evidence of acute cardiopulmonary disease. There is resolution of the vascular congestion seen in the prior study. 2. Removal of the right jugular hemodialysis catheter since the previous examination. Electronically Signed: Sid Hernandez DO at 16:40 EDT Tel [phone], Service support , CC: Stewart Recinos MD; Yesenia Crocker MD 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: Signed BRAIN/HEAD WITHOUT Observed: 05/25/2018 Status: F Source: [place] CONTRAST 4:[address] [facility] REPOSITORY [facility] Imaging Services [address] [place] [address] Brain/Head without Contrast MR#: [id number] Acct: [id number] Name: ANSLEY OLIVAS R Rep #: [id number] : 1940 M 78 From: Sid Hernandez DO PCP: Yesenia Crocker MD Status: REG Study: Brain/Head without Contrast Date of Exam: 05/25/18 Exam# [id number] Ordering Dr: Stewart Recinos MD STUDY: CT BRAIN WITHOUT CONTRAST REASON FOR EXAM: Male, 78 years old. Stroke. Difficulty walking. RADIATION DOSAGE (If Supplied By Facility): CTDIvol = ( 44.99 ) mGy, DLP = ( 745.49 ) mGycm TECHNIQUE: Transaxial CT imaging of the brain was performed without administration of intravenous contrast material. Individualized dose optimization techniques were used for this CT. COMPARISON: February 15, 2018. FINDINGS: Normal soft tissue structures. Normal calvarium. There is mild cerebral atrophy with widening of the extra- axial spaces and ventricular dilatation. There are areas of decreased attenuation within the white matter tracts of the supratentorial brain, consistent with microvascular disease changes. There is a small remote lacunar infarct in the right external capsule. Normal left basal ganglia and bilateral thalami. Normal brainstem. Normal cerebellum. There is no intracranial hemorrhage. There are no findings of an acute ischemic infarction. Normal visualized paranasal sinuses. CT/Brain/Head without Contrast IMPRESSION: Chronic involutional changes without evidence of acute intracranial or calvarial abnormality. There is no significant interval change. There is strong concern for stroke, MRI is recommended. Electronically Signed: Sid Hernandez DO at 17:19 EDT Tel [phone], Service support , CC: Stewart Recinos MD; Yesenia Crocker MD 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: Signed PROGRESS Observed: 04/15/2018 Status: COMPLETED Source: [place] 12:53 PM [facility] [place] REPOSITORY HNO ID: [id number] Author: Mary Howard Service: (none) Author Type: Physician Type: Progress Notes Filed: 04/15/2018 1:32 PM Note Text: Mary Howard DPM Department of Podiatry [address] [facility] [address] Dept: [phone] Dept Nail Care SUBJECTIVE: Follow up office visit: This 78 year old male presents to clinic c/o painful toenails. Patient states that the nails are especially painful with shoe gear and pressure. Patient denies to being diabetic. Patient denies claudication type symptoms when walking. No other pedal complaints at this time. No change in medications or medical history since last visit. OBJECTIVE: Patient presents to clinic ambulating in tennis shoes. Vasc: DP and PT pulses are palpable bilateral. CFT is less than 5 seconds bilateral. Skin temperature is warm to warm proximal to distal bilateral. There is mild edema or varicosities noted. Hair growth present. Neuro: Protective sensation is intact to the foot and toes when tested with the 5.07 SWM bilateral. Vibratory sensation is decreased at the hallux bilateral. insignificant neurological defecits. Derm: Inspection and palpation performed. Nails 1-5 b/l are painful, discolored-yellow, thick, crumbly, dystrophic and with subungal debris. Skin is dry and scaly, b/l. Abrasion is noted to left lateral leg, nearly healed Hyperkeratosis absent. NO ulcerations, scars, verruca or other lesions noted. Ortho: Ankle joint DF is full with the knee extended and full with knee flexed. No pain or crepitus noted. STJ, MTJ ROM are full and free of pain or crepitus. Muscle strength is 5/5 for dorsiflexors, plantarflexors, inverters, everters. Digital deformities include no. ASSESSMENT: (B35.1) Onychomycosis (primary encounter diagnosis) (M79.675) Pain in toe of left foot (M79.674) Pain in toe of right foot (85.3) Xerosis cutis PLAN: Patient was seen and evaluated. Nails 1-5 bilateral were debrided in length and thickness. Recommend lotion to feet daily Small abrasion to left leg with no signs of infection. Nearly healed. Continue with local wound care. f/u in 3 months Mary Howard DPM CNOV Observed: 04/15/2018 Status: COMPLETED Source: [place] 12:50 PM [facility] [place] REPOSITORY Office Visit (PODIWS) ANSLEY OLIVAS ([id number]) 1940 M Date Time Provider Department 04/15/18 12:50 PM MARY HOWARD PODIWS During your visit today, we recorded the following information about you: Mary Howard DPM 04/15/2018 1:32 PM Signed Mary Howard DPM Department of Podiatry [address] [facility] [address] Dept: [phone] Dept Nail Care SUBJECTIVE: Follow up office visit: This 78 year old male presents to clinic c/o painful toenails. Patient states that the nails are especially painful with shoe gear and pressure. Patient denies to being diabetic. Patient denies claudication type symptoms when walking. No other pedal complaints at this time. No change in medications or medical history since last visit. OBJECTIVE: Patient presents to clinic ambulating in tennis shoes. Vasc: DP and PT pulses are palpable bilateral. CFT is less than 5 seconds bilateral. Skin temperature is warm to warm proximal to distal bilateral. There is mild edema or varicosities noted. Hair growth present. Neuro: Protective sensation is intact to the foot and toes when tested with the 5.07 SWM bilateral. Vibratory sensation is decreased at the hallux bilateral. insignificant neurological defecits. Derm: Inspection and palpation performed. Nails 1-5 b/l are painful, discolored-yellow, thick, crumbly, dystrophic and with subungal debris. Skin is dry and scaly, b/l. Abrasion is noted to left lateral leg, nearly healed Hyperkeratosis absent. NO ulcerations, scars, verruca or other lesions noted. Ortho: Ankle joint DF is full with the knee extended and full with knee flexed. No pain or crepitus noted. STJ, MTJ ROM are full and free of pain or crepitus. Muscle strength is 5/5 for dorsiflexors, plantarflexors, inverters, everters. Digital deformities include no. ASSESSMENT: (B35.1) Onychomycosis (primary encounter diagnosis) (M79.675) Pain in toe of left foot (M79.674) Pain in toe of right foot (85.3) Xerosis cutis PLAN: Patient was seen and evaluated. Nails 1-5 bilateral were debrided in length and thickness. Recommend lotion to feet daily Small abrasion to left leg with no signs of infection. Nearly healed. Continue with local wound care. f/u in 3 months Mary Howard DPM Referring Provider: MARY HOWARD [[id number]] Allergies As of Date: 04/15/2018 Noted Allergy Reaction BETA BLOCKERS (BETA-BLOCKERS (BET*10/04/2010 14 - Other: See Comments Comments: Severe fatigue SULFA (SULFONAMIDE ANTIBIOTICS) 08/14/2005 4 - Hives Date Reviewed: 04/15/2018 Reviewed by: Ayesha Garcia Ma - Fully Assessed Reason for Visit: nail care [Other] Primary Visit Diagnosis:Onychomycosis [B35.1] Other Visit Diagnoses:Pain in toe of left foot [M79.675] Pain in toe of right foot [M79.674] Xerosis cutis [L85.3] Prescriptions as of 04/15/2018 Sig: OXYCODONE 5 MG TABLET Take 1 tablet by mouth every * METOPROLOL TARTRATE 50 MG TAB* Take 1 tablet by mouth twice * SENNOSIDES 8.6 MG-DOCUSATE SO* Take 1 tablet by mouth once d* DICYCLOMINE 10 MG CAPSULE Take 2 capsules by mouth thre* OMEPRAZOLE 20 MG CAPSULE,AMA* Take 1 capsule by mouth once * WARFARIN 2.5 MG TABLET 5mg Mon and Fri; and 2.5mg ot* TAMSULOSIN 0.4 MG CAPSULE Take 2 capsules by mouth once* AMMONIUM LACTATE-SODIUM LACTA* Apply 1 application to affect* COMPOUNDED PRESCRIPTION Front wheeled walked with sea* ZAAZHAGWVPCDPOX-LAFRGYZ-BFOIQ* Gargle 5ml and swallow every * * COMPOUNDED PRESCRIPTION Home BP cuff, Dx: HTN labile Problem List As Of Date 04/15/2018 Noted Resolved MORBID OBESITY [E66.01] Essential hypertension [I10] 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] INVALID FOR* HERPES ZOSTER NOS [B02.9] INVALID FOR* DYSMETABOLIC SYNDROME X [E88.81] ANEMIA NOS [D64.9] Mohs for BCC, left cheek 3 [173.8] INVALID FOR* ACTINIC KERATOSES (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 Complication of dialysis access insertion (HCC)*INVALID FOR* Acute deep vein thrombosis (DVT) of both upper *INVALID FOR* ESRD on hemodialysis (HCC) [N18.6, Z99.2] INVALID FOR* More... Weakness [R53.1] INVALID FOR* More... BPH with obstruction/lower urinary tract sympto*INVALID FOR* More... 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 Gait instability [R26.81] INVALID FOR* Encounter Status:Closed by MARY HOWARD DPM on 04/15/18 Observed: 03/30/2018 Status: F Source: [place] CULTURE, URINE 11:[address] [facility] REPOSITORY Urine Culture ORGANISM 1: Enterococcus faecium [place] Count 25,000-50,000 ORGANISM 2: Proteus mirabilis [place] Count 11,000-25,000 Enterococcus faecium: REACTION Ampicillin $ >=32 R Benzylpenicillin NF >=64 R Ciprofloxacin $ >=8 R Gentamicin SYN-S S Levofloxacin $ >=8 R Nitrofurantoin $ 256 R Streptomycin $ SYN-S S Tetracycline NF >=16 R Vancomycin $ 1 S (NF) indicates non-formulary drug at [facility]. Approval by Infectious Disease Specialist required before non-formulary drugs may be ordered and/or dispensed. * CLSI guidelines does not recommend testing of cephalosporins. This interpretation is deduced from Beta-lactam/penicillin results. Proteus mirabilis: REACTION Amoxacillin/Clavulanic Acid $ 4 S Ampicillin $ <=2 S Ampicillin/Sulbactam $ <=2 S Cefazolin $ <=4 S Cefepime $ <=1 S Ceftriaxone $ <=1 S Ciprofloxacin $ 1 S Ertapenim $$$ <=0.5 S Gentamicin $ <=1 S Levofloxacin $ 1 S Nitrofurantoin $ 128 R Piperacillin/Tazobactam $$ <=4 S Tobramycin $ <=1 S Trimethoprim/Sulfametho $ <=20 S (NF) indicates non-formulary drug at [facility]. Approval by Infectious Disease Specialist required before non-formulary drugs may be ordered and/or dispensed. Performed By: #### [id number] #### [facility] [address] [place], [address] Observed: 03/16/2018 Status: F Source: [place] CULTURE, URINE 10:[address] [facility] REPOSITORY Urine Culture Below infection level. Probable Proteus and Enterococcus sp. ORGANISM 1: Mixed Gram Positive Organisms [place] Count <1000 Performed By: #### [id number] #### [facility] [address] [place], [address] PROGRESS Observed: 03/09/2018 Status: COMPLETED Source: [place] 9:53 AM [facility] REPOSIT[facility] O ID: [id number] Author: Yesenia Crocker Service: (none) Author Type: Physician Type: Progress Notes Filed: 03/19/2018 12:08 AM Note Text: Patient presents with: Recheck SUBJECTIVE: Ansley Olivas is a 78 year old year old gentleman here today for 3 month follow up appointment for review of medical conditions. Doing okay. No acute concerns to address. No complaints of CP, increased SOB or CHUNG. Doing well with HD. makes sure he eats healthy diet. 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 Jose Ferreira - Hep C w/o coma, chronic (HCC) Grade 1 Stage I - Kidney disease - Mohs for BCC, left cheek 02-02-08 02/03/2008 - Morbid obesity (HCC) - Renal failure 11/03/2016 - SCAR AND FIBROSIS OF SKIN 07/19/2008 - SOLAR LENGINES///DYSCHROMIA OTHER 07/19/2008 - Unspecified essential hypertension Current Outpatient Prescriptions: oxyCODONE IR (ROXICODONE) 5 mg immediate release tablet Take 1 tablet by mouth every 8 hours as needed for Pain for up to 30 days.Earliest Fill Date: 02/20/18 metoprolol tartrate, short acting, (LOPRESSOR) 50 mg tablet Take 1 tablet by mouth twice daily. senna-docusate (SENNA PLUS) 8.6-50 mg per tablet Take 1 tablet by mouth once daily. dicyclomine (BENTYL) 10 mg capsule Take 2 capsules by mouth three times daily before meals. omeprazole (PRILOSEC) 20 mg capsule Take 1 capsule by mouth once daily. warfarin (COUMADIN) 2.5 mg tablet 5mg Mon and Fri; and 2.5mg other days or as directed. tamsulosin ER (FLOMAX) 0.4 mg cp24 Take 2 capsules by mouth once daily at 5:30 Ammonium,Pot.and Sodium Lactates (AMLACTIN) crea Apply 1 application to affected area once daily. COMPOUNDED PRESCRIPTION Front wheeled walked with seat attachmentDx (M15.9) Generalized osteoarthritis; (R53.1) Weakness, (R26.81) Gait instability tgckrvgogqJWBPU-bowlox-srpepojxd (BMX 1:1:1) 1:1:1 liqd Gargle 5ml and swallow every 4 hours as needed. May use 20 minutes prior to eating COMPOUNDED PRESCRIPTION Home BP cuff, Dx: HTN labile No current facility-administered medications for this visit. OBJECTIVE: BP 122/70 Pulse (!) 55 Resp 14 Wt 91.6 kg (202 lb) SpO2 100% BMI 36.95 kg/m? PHYSICAL EXAM: General Appearance: Obese, otherwise looks fine--NAD, no SOB. Affect reactive. Still likes to act gruff but just teasing Skin: Skin color, texture, turgor normal, no suspicious rashes or lesions. Lungs: Lungs clear to auscultation. No wheezing, rhonchi, rales. Heart: RRR without murmur, gallop, or rubs. No ectopy. Abdomen: Normal abdominal exam, except fpr obesity. Abdomen soft, non-tender. Bowel sounds normal. No masses, organomegaly. Extremities: No deformities, edema, skin discoloration, clubbing or cyanosis. Good capillary refill. . ASSESSMENT AND PLAN: No diagnosis found. Doing okay on pain med. Not needing med every day. Doing okay on hemodialysis. continues to take good care of him Above issues addressed with patient. Patient involved in shared decision making for management of her medical issues. History and medications reviewed. Epic updated as needed Refills taken care of and meds adjusted as indicated after reviewed history, exam and labs. Health Maintenance reviewed. Updated record and/or ordered tests as recorded. Encouraged on efforts at healthy diet and regular exercise and adequate sleep. The majority of the visit was spent counseling and/or coordinating care for the patient. Grqn-ef-gwij time was at least 20 minutes. Yesenia Crocker MD CNOV Observed: 03/09/2018 Status: COMPLETED Source: [place] 9:40 AM [facility] REPOSITORY Office Visit (INTMWS) ANSLEY OLIVAS ([id number]) 1940 M Date Time Provider Department 03/09/18 9:40 AM YESENIA CROCKER INTMWS During your visit today, we recorded the following information about you: Pulse Respiration Blood pressure Weight 55/minute 14/minute 122/70 91.6 kg Yesenia Crocker 03/19/2018 12:08 AM Signed Patient presents with: Recheck SUBJECTIVE: Ansley Olivas is a 78 year old year old gentleman here today for 3 month follow up appointment for review of medical conditions. Doing okay. No acute concerns to address. No complaints of CP, increased SOB or CHUNG. Doing well with HD. makes sure he eats healthy diet. 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 Jose Ferreira - Hep C w/o coma, chronic (HCC) Grade 1 Stage I - Kidney disease - Mohs for BCC, left cheek --08 02/03/2008 - Morbid obesity (HCC) - Renal failure 11/03/2016 - SCAR AND FIBROSIS OF SKIN 07/19/2008 - SOLAR LENGINES///DYSCHROMIA OTHER 07/19/2008 - Unspecified essential hypertension Current Outpatient Prescriptions: oxyCODONE IR (ROXICODONE) 5 mg immediate release tablet Take 1 tablet by mouth every 8 hours as needed for Pain for up to 30 days.Earliest Fill Date: 02/20/18 metoprolol tartrate, short acting, (LOPRESSOR) 50 mg tablet Take 1 tablet by mouth twice daily. senna-docusate (SENNA PLUS) 8.6-50 mg per tablet Take 1 tablet by mouth once daily. dicyclomine (BENTYL) 10 mg capsule Take 2 capsules by mouth three times daily before meals. omeprazole (PRILOSEC) 20 mg capsule Take 1 capsule by mouth once daily. warfarin (COUMADIN) 2.5 mg tablet 5mg Mon and Fri; and 2.5mg other days or as directed. tamsulosin ER (FLOMAX) 0.4 mg cp24 Take 2 capsules by mouth once daily at 5:30 Ammonium,Pot.and Sodium Lactates (AMLACTIN) crea Apply 1 application to affected area once daily. COMPOUNDED PRESCRIPTION Front wheeled walked with seat attachmentDx (M15.9) Generalized osteoarthritis; (R53.1) Weakness, (R26.81) Gait instability fifvtpjdyfTPVHH-jghxaz-xrhkejqiq (BMX 1:1:1) 1:1:1 liqd Gargle 5ml and swallow every 4 hours as needed. May use 20 minutes prior to eating COMPOUNDED PRESCRIPTION Home BP cuff, Dx: HTN labile No current facility-administered medications for this visit. OBJECTIVE: BP 122/70 Pulse (!) 55 Resp 14 Wt 91.6 kg (202 lb) SpO2 100% BMI 36.95 kg/m? PHYSICAL EXAM: General Appearance: Obese, otherwise looks fine--NAD, no SOB. Affect reactive. Still likes to act gruff but just teasing Skin: Skin color, texture, turgor normal, no suspicious rashes or lesions. Lungs: Lungs clear to auscultation. No wheezing, rhonchi, rales. Heart: RRR without murmur, gallop, or rubs. No ectopy. Abdomen: Normal abdominal exam, except fpr obesity. Abdomen soft, non-tender. Bowel sounds normal. No masses, organomegaly. Extremities: No deformities, edema, skin discoloration, clubbing or cyanosis. Good capillary refill. . ASSESSMENT AND PLAN: No diagnosis found. Doing okay on pain med. Not needing med every day. Doing okay on hemodialysis. continues to take good care of him Above issues addressed with patient. Patient involved in shared decision making for management of her medical issues. History and medications reviewed. Epic updated as needed Refills taken care of and meds adjusted as indicated after reviewed history, exam and labs. Health Maintenance reviewed. Updated record and/or ordered tests as recorded. Encouraged on efforts at healthy diet and regular exercise and adequate sleep. The majority of the visit was spent counseling and/or coordinating care for the patient. Gytt-fq-kbzk time was at least 20 minutes. Yesenia Crocker MD Referring Provider: SELF [[id number]] Allergies As of Date: 03/09/2018 Noted Allergy Reaction BETA BLOCKERS (BETA-BLOCKERS (BET*10/04/2010 14 - Other: See Comments Comments: Severe fatigue SULFA (SULFONAMIDE ANTIBIOTICS) 08/14/2005 4 - Hives Date Reviewed: 03/09/2018 Reviewed by: Mary Pierre Cma - Fully Assessed Reason for Visit: Recheck [92] Primary Visit Diagnosis:Essential hypertension [I10] Other Visit Diagnoses: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] ESRD on hemodialysis (HCC) [N18.6, Z99.2] Prescriptions as of 03/09/2018 Sig: OXYCODONE 5 MG TABLET Take 1 tablet by mouth every * METOPROLOL TARTRATE 50 MG TAB* Take 1 tablet by mouth twice * SENNOSIDES 8.6 MG-DOCUSATE SO* Take 1 tablet by mouth once d* DICYCLOMINE 10 MG CAPSULE Take 2 capsules by mouth thre* OMEPRAZOLE 20 MG CAPSULE,AMA* Take 1 capsule by mouth once * WARFARIN 2.5 MG TABLET 5mg Mon and Fri; and 2.5mg ot* TAMSULOSIN 0.4 MG CAPSULE Take 2 capsules by mouth once* AMMONIUM LACTATE-SODIUM LACTA* Apply 1 application to affect* COMPOUNDED PRESCRIPTION Front wheeled walked with sea* LNTUVZKAGGGMJOP-PEBVKWU-NACMI* Gargle 5ml and swallow every * * COMPOUNDED PRESCRIPTION Home BP cuff, Dx: HTN labile Problem List As Of Date 03/09/2018 Noted Resolved MORBID OBESITY [E66.01] Essential hypertension [I10] 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] INVALID FOR* HERPES ZOSTER NOS [B02.9] INVALID FOR* DYSMETABOLIC SYNDROME X [E88.81] ANEMIA NOS [D64.9] Mohs for BCC, left cheek 02-03-08 [173.8] INVALID FOR* ACTINIC KERATOSES (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 Complication of dialysis access insertion (HCC)*INVALID FOR* Acute deep vein thrombosis (DVT) of both upper *INVALID FOR* ESRD on hemodialysis (HCC) [N18.6, Z99.2] INVALID FOR* More... Weakness [R53.1] INVALID FOR* More... BPH with obstruction/lower urinary tract sympto*INVALID FOR* More... 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 Gait instability [R26.81] INVALID FOR* Disposition: Return for 3 months follow up (make next 2 appointments). Follow-up and Disposition History Recorded Encounter Status:Closed by YESENIA CROCKER MD on 03/19/18 OPERATIVE REPORT Observed: 02/26/2018 Status: F Source: [place] 10:[address] [facility] REPOSITORY [facility] Medical Records Department [address] [place] [id number] Operative Report 02/26/18 1028 MR#: [id number] Acct: [id number] Name: BRENDONANSLEY Mirna Rep #: [id number] : 1940 78 From: Aleks Moore MD PCP: Yesenia Crocker MD Status: REG [facility] Location: [place] [address] Report of Operation Date of Procedure: 02/26/18 Pre-Operative Diagnosis: Phimosis and urethral stricture bulbar severe. Post-Operative Diagnosis: Same Surgery/Procedure Performed:: Circumcision, cystoscopy, dilation of urethral stricture and placement of a Castillo catheter Description of Surgical Findings:: 78-year-old male who is on chronic dialysis and has been found to have retention of urine chronically unable to empty his bladder and now is getting chronic infections in his bladder because of this we attempted a cystoscopy in the office was found to have a very severe phimosis of the foreskin and suspected urethral stricture disease. Because of this recommended we taken to surgery for do a circumcision cystoscopy and possible dilation of the urethral strictures and Castillo placement. 78-year-old male taken back to the operating room at the smooth induction of anesthesia he was placed supine on the table. The penis and testicles were prepped and draped in usual sterile fashion infiltrated the foreskin circumferentially with Marcaine with no epi. I then did a dorsal slit on the foreskin was able to then retract the foreskin over the head of the penis for use then Betadine to clean the pink penis and some smegma around the foreskin. I then excised the foreskin dorsally. We then reapproximated the shaft skin to the subcoronal skin with stitches using 3-0 Vicryls after 4 points were fixed we then ran the circumcision all the way around the penis to complete circumcision. Then at this point the meatus was checked very tight meatus with the dilate the meatus with sounds up to 26 Ethiopian. I then did a cystoscopy found a very pinpoint severe bulbar urethral stricture passed a wire through this and then over the wire we dilated the stricture using the Bard urology kit we used the followers to dilate the stricture from 12 Ethiopian up to 18 Ethiopian. I then did a cystoscopy demonstrated the severe strictures in the bulbar urethra prostate was mildly obstructive a little bit of bleeding in the bladder no tumors or stones seen the bladder very distended bladder from chronic obstruction. Then over the wire I advanced a 16 [place] [address] [place] tip catheter but the catheter inside the bladder leave this in for about a week and a half he will see us back for follow-up after the circumcision dilation of the strictures and at that point will remove the catheter. He will continue with his Flomax. I have asked the patient and the family to hold his Coumadin to the catheter is removed. Type of Anesthesia:: Local MAC Drains: castillo - Admit VTE Documentation VTE Present on Admission: No VTE Mechan Device Prophylaxis: SCD's VTE Pharm Prophylaxis ordered?: No Reason prophylaxis not ordered:: Treatment Not Indicated 02/26/18 1032 <Electronically signed by Aleks Moore MD> Date Aleks Moore MD CC: Aleks Moore MD; Yesenia Crocker MD Signed DISCHARGE INSTRUCTION Observed: 02/26/2018 Status: F Source: [place] 10:[address] [facility] REPOSITORY [facility] Medical Records Department [address] [place] [address] Instructions for Home/Discharge Instructions 02/26/18 0954 MR#: [id number] Acct: [id number] Name: ANSLEY OLIVAS Rep #: [id number] : 1940 78 From: Aleks Moore MD PCP: Yesenia Crocker MD Status: REG [facility] ADDENDUM by Aleks Moore MD on 02/26/18 at 1027 Hold coumadin and blood thinners till castillo removed. Date Aleks Moore MD cc: Yesenia Crocker MD * Signed Discharge Diet: Light diet - advance as tolerated Discharge Activity: May Not Drive Call your doctor if your incision/area has: Continuous Slow Oozing, Sudden Increased Bleeding, Increased Pain/ Swelling, Increased Redness, Foul Smelling Discharge, Swelling at the incision site Call your doctor if you observe: Fever of 101 or Higher Instructions: Adult Circumcision Additional Instructions: resume all medications. Allergies/Adverse Reactions: Allergies Sulfa (Sulfonamide Antibiotics) Allergy (Severe, Verified 02/26/18 07:51) Hives Medications to take at Discharge Sennosides/Docusate Sodium [Docusate Sodium-Senna Tablet] 1 ea PO PRN PRN 08/07/16 Amlodipine [Norvasc] 5 mg PO DAILY 08/26/16 Dicyclomine HCl 20 mg PO TID 10/23/16 Omeprazole [Prilosec] 40 mg PO DAILY 10/23/16 Tamsulosin HCl [Flomax] 0.4 mg PO DAILY 10/23/16 Oxycodone [Oxyir] 5 mg PO Q8H PRN PRN #7 tab 10/28/16 Metoprolol Tartrate [Lopressor (beta keila)] 50 mg PO BID tab 11/03/16 Furosemide [Lasix] 20 mg PO BIDLX 02/11/17 Ondansetron HCl [Zofran] 4 mg PO PRN PRN 02/11/17 Ciprofloxacin [Cipro] 250 mg PO DAILY #10 tab 02/26/18 Hydrocodone/Acetaminophen [[place] 5-325 Tablet] 1 ea PO Q4H PRN PRN 7 Days #20 tab 02/26/18 The following prescriptions were given: Hydrocodone/Acetaminophen [[place] 5-325 Tablet] 1 ea PO Q4H PRN PRN 7 Days #20 tab PRN Reason: Pain Ciprofloxacin [Cipro] 250 mg PO DAILY #10 tab Primary Care Physician: Yesenia Crocker MD [Primary Care Provider] - Please Follow Up With: Aleks Moore MD When: ThursdayMarch 09 at 11am. 02/26/18 0956 <Electronically signed by Aleks Moore MD> Date Aleks Moore MD CC: Yesenia Crocker MD FORESKIN Observed: 02/26/2018 Status: F Source: [place] 9:[address] [facility] REPOSITORY Patient: ANSLEY OLIVAS : 1940 (78/M) Acct Num: [id number] Phys: Aleks Moore MD Unit Num: [id number] Loc: [facility] Specimen: [id number] Received: 02/26/18 - 1346 Spec Type: FORESKIN TISSUES TISSUES: Skin of foreskin, NOS GROSS DESCRIPTION Received in fixative is one container labeled with the patient's name and designated foreskin. The specimen consists of an irregular piece of fonseca, wrinkled skin measuring 4.5 x 2 x 0.3 cm. No mass lesion is identified. Sales Lead Generator sections are submitted in one cassette. / ANGEL:damian 02/26/18 TC:3 CPT: 63873 HEADER OPERATION: Cysto, circumcision, urethral dilation PRE-OP DIAGNOSIS: Phimosis and urethral stricture TISSUE SUBMITTED: Foreskin MICROSCOPIC DESCRIPTION Slides are reviewed. MICROSCOPIC DIAGNOSIS Foreskin: A piece of skin with focal mild chronic inflammation. ANGEL:damian 03/01/18 Signed Jeromy Ortiz 03/01/18 <signature on file> Performed By: #### PFOR #### [facility] [address] [place], [address] SURGERY VISIT REPORT Observed: 02/24/2018 Status: F Source: [place] 11:[address] [facility] REPOSITORY [facility] [address] [place] [address] OFFICE VISIT Date of Service: 02/23/18 MR#: [id number] Acct: [id number] Name: ANSLEY OLIVAS Rep #: [id number] : 1940 Provider: Paulette Jones PA-C Age/Sex: 78/M Location: [facility] Status: Signed Intake Intake Visit Reasons: LARGE LUMP UPPER PORTION FISTULA Director Of Admissions Required: No Is patient in pain?: No Allergies Sulfa (Sulfonamide Antibiotics) Allergy (Severe, Verified 02/23/18 15:40) Hives Beta-Blockers (Beta-Adrenergic Bloc Allergy (Verified 02/23/18 15:40) Unknown Medications Sennosides/Docusate Sodium [Docusate Sodium-Senna Tablet] 1 ea PO PRN PRN 08/07/16 [History Confirmed 02/23/18] Amlodipine [Norvasc] 5 mg PO DAILY 08/26/16 [History Confirmed 02/23/18] Dicyclomine HCl 20 mg PO TID 10/23/16 [History Confirmed 02/23/18] Omeprazole [Prilosec] 40 mg PO DAILY 10/23/16 [History Confirmed 02/23/18] Tamsulosin HCl [Flomax] 0.4 mg PO DAILY 10/23/16 [History Confirmed 02/23/18] Oxycodone [Oxyir] 5 mg PO Q8H PRN PRN #7 tab 10/28/16 [Rx Confirmed 02/23/18] Metoprolol Tartrate [Lopressor (beta keila)] 50 mg PO BID tab 11/03/16 [Rx Confirmed 02/23/18] Furosemide [Lasix] 20 mg PO BIDLX 02/11/17 [History Confirmed 02/23/18] Ondansetron HCl [Zofran] 4 mg PO PRN PRN 02/11/17 [History Confirmed 02/23/18] PFSH Medical History ESRD (end stage renal disease) (Acute) DVT of bilateral internal jugular veins (Acute) Morbid obesity (Chronic) Chronic renal disease, stage IV (Chronic) Benign prostatic hypertrophy (Chronic) Hypertension (Chronic) Nephrotic syndrome (Chronic) Surgical History Presence of surgically created arteriovenous shunt for hemodialysis (Acute) Social History Smoking Status: Former smoker HPI HPI HPI: ANSLEY OLIVAS, is a 78 M I am following for chronic renal failure. Patient has a left upper extremity brachiocephalic fistula. Patient had a hematoma post-operatively from the fistula creation. This took months to resolve. Patient had to place warm compresses and gentle massage to the area which helped to resolved the hematoma. Patient denies concerns at dialysis with access. Patient noted within the last week he was infiltrated. He noted the lump had returned which was previously resolved. Patient denies pain/discomfort. He was sent from the dialysis center with concern of the size of the lump. Patient's last fistulogram was on 03/30/2017. 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 Exam Const General: cooperative, healthy appearing, comfortable, no acute distress Other: Moderate of ecchymosis on left side of face from a fall. HENMS Head: normal to inspection Neck Neck: normal visual inspection Neck mass: No Extrem Other: Left upper extremity AV fistula- large mass in the upper left arm consistent with a hematoma. Ultrasound inspection demonstrated fullness surrounding the vessel of the fistula consistent with a hematoma. Non-tender. Excellent pulse, bruit, thrill. Stent graft identified and patent. Assessment AND Plan Problems 1. ESRD (end stage renal disease) N18.6 2. Fistula L98.8 3. Hematoma T14.8XXA Plan - Recommend warm compresses - Follow-up as needed or if the hematoma enlarges - Hematoma may take several months to resolve Coding Level of Care Code Off vis,est,level 3 Diagnoses ESRD (end stage renal disease) N18.6 Fistula L98.8 Hematoma T14.8XXA 02/24/18 1127 <Electronically signed by Paulette Jones PA-C> Date Paulette Lemons Signature: Date (if applicable) CC: Yesenia Crocker MD CNPTOUTREACH Observed: 02/23/2018 Status: COMPLETED Source: [place] 12:00 AM [facility] REPOSITORY Patient Outreach ([facility]) ANSLEY OLIVAS ([id number]) 1940 M Date Time Provider Department 02/23/18 [facility] During your visit today, we recorded the following information about you: Allergies As of Date: 02/23/2018 Noted Allergy Reaction BETA BLOCKERS (BETA-BLOCKERS (BET*10/04/2010 14 - Other: See Comments Comments: Severe fatigue SULFA (SULFONAMIDE ANTIBIOTICS) 08/14/2005 4 - Hives Date Reviewed: 02/19/2018 Reviewed by: Martha Loja (Intake Rn) HOLDEN Rios - Fully Assessed Visit Diagnosis:Medication management [Z79.899] Order(s):BASIC METABOLIC PNL [SQBMP] Order #: [id number] FUTURE Prescriptions as of 02/23/2018 Sig: X OXYCODONE 5 MG TABLET Take 1 tablet by mouth every * METOPROLOL TARTRATE 50 MG TAB* Take 1 tablet by mouth twice * SENNOSIDES 8.6 MG-DOCUSATE SO* Take 1 tablet by mouth once d* X DICYCLOMINE 10 MG CAPSULE Take 2 capsules by mouth thre* Patient not taking: Reported on 06/10/2018 X OMEPRAZOLE 20 MG CAPSULE,AMA* Take 1 capsule by mouth once * Patient not taking: Reported on 06/10/2018 X WARFARIN 2.5 MG TABLET 5mg Mon and Fri; and 2.5mg ot* Patient not taking: Reported on 06/10/2018 TAMSULOSIN 0.4 MG CAPSULE Take 2 capsules by mouth once* AMMONIUM LACTATE-SODIUM LACTA* Apply 1 application to affect* COMPOUNDED PRESCRIPTION Front wheeled walked with sea* [id number]-FUZKIJG-CUFRV* Gargle 5ml and swallow every * * COMPOUNDED PRESCRIPTION Home BP cuff, Dx: HTN labile Problem List As Of Date 02/23/2018 Noted Resolved MORBID OBESITY [E66.01] Essential hypertension [I10] 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] INVALID FOR* HERPES ZOSTER NOS [B02.9] INVALID FOR* DYSMETABOLIC SYNDROME X [E88.81] ANEMIA NOS [D64.9] Mohs for BCC, left cheek 02-03-08 [173.8] INVALID FOR* ACTINIC KERATOSES (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 Complication of dialysis access insertion (HCC)*INVALID FOR* Acute deep vein thrombosis (DVT) of both upper *INVALID FOR* ESRD on hemodialysis (HCC) [N18.6, Z99.2] INVALID FOR* More... Weakness [R53.1] INVALID FOR* More... BPH with obstruction/lower urinary tract sympto*INVALID FOR* More... 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 Gait instability [R26.81] INVALID FOR* Encounter Status:Closed by EPIC, PRODUSER on 08/27/18 PROGRESS Observed: 02/19/2018 Status: COMPLETED Source: [place] 1:23 PM [facility] REPOSITORY HNO ID: [id number] Author: Davina Harper) Podlogar Service: (none) Author Type: Nurse Practitioner Type: Progress Notes Filed: 02/19/2018 3:12 PM Note Text: 02/19/2018 Patient presents with: Staple Removal SUBJECTIVE: This is a 78 year old that is here today for Above Complaints. On Thursday was going to bathroom and lost his balance and hit left side of head. Went to [facility]. Ct Scan was done which showed no acute intracranial abnormality. He was on coumadin but that was put on hold by his senior data architect. Gail placed to top of head d/t laceration. 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 Jose Ferreira - Hep C w/o coma, chronic (HCC) Grade 1 Stage I - Kidney disease - Mohs for BCC, left cheek 02-02-02/03/2008 - Morbid obesity (HCC) - Renal failure 11/03/2016 - SCAR AND FIBROSIS OF SKIN 07/19/2008 - SOLAR LENGINES///DYSCHROMIA OTHER 07/19/2008 - Unspecified essential hypertension ALLERGIES Beta Blockers [Beta-Blockers (Beta-Adrenergic Blocking Agts)]; Sulfa (Sulfonamide Antibiotics) MEDICATIONS Current Outpatient Prescriptions: oxyCODONE IR (ROXICODONE) 5 mg immediate release tablet Take 1 tablet by mouth every 8 hours as needed for Pain for up to 30 days.Earliest Fill Date: 01/06/18 metoprolol tartrate, short acting, (LOPRESSOR) 50 mg tablet Take 1 tablet by mouth twice daily. senna-docusate (SENNA PLUS) 8.6-50 mg per tablet Take 1 tablet by mouth once daily. dicyclomine (BENTYL) 10 mg capsule Take 2 capsules by mouth three times daily before meals. omeprazole (PRILOSEC) 20 mg capsule Take 1 capsule by mouth once daily. warfarin (COUMADIN) 2.5 mg tablet 5mg Mon and Fri; and 2.5mg other days or as directed. tamsulosin ER (FLOMAX) 0.4 mg cp24 Take 2 capsules by mouth once daily at 5:30 Ammonium,Pot.and Sodium Lactates (AMLACTIN) crea Apply 1 application to affected area once daily. COMPOUNDED PRESCRIPTION Front wheeled walked with seat attachmentDx (M15.9) Generalized osteoarthritis; (R53.1) Weakness, (R26.81) Gait instability wmhlxcgdseADTEQ-jveqrg-tyfopyogc (BMX 1:1:1) 1:1:1 liqd Gargle 5ml and swallow every 4 hours as needed. May use 20 minutes prior to eating COMPOUNDED PRESCRIPTION Home BP cuff, Dx: HTN labile No current facility-administered medications for this visit. Medications and allergies reviewed by this provider. SOCIAL HISTORY Social History Marital status: Spouse name: Phyllis Years of education: Number of children: 3 Occupational History Occupation Employer Comment retired Social History Main Topics Smoking status: Former Smoker Packs/day: 1.00 Years: 10.00 Types: Cigarettes Quit date: 11/22/1969 Smokeless status: Never Used Alcohol use: No Drug use: No REVIEW OF SYSTEMS NEURO: No history of headaches, syncope, paralysis, seizures or tremors All other reviewed and negative other than HPI. OBJECTIVE: BP 134/64 (BP Site: Right Arm, BP Position: Sitting, BP Cuff Size: Regular Adult) Pulse 88 Resp 18 Wt 92.5 kg (204 lb) BMI 37.31 kg/m2. Vital signs reviewed by this provider. APPEARANCE Well appearing, alert, in no acute distress, well-hydrated, well nourished. Alert and oriented x 3 SKIN Large ecchymotic area around left eye and left side of head. 6 gail to top of head. Staple line is irregular with a approximate 1.5 cm area and a 2.0 cm area in length. Some dried blood on staple line. Staple line well-approximated with out erythema, swelling, or drainage. Neuro: Is wheelchair bound.Reflexes normal and symmetric. Sensation grossly intact., Negative findings: speech normal, mental status intact, cranial nerves 2-12 intact, muscle tone normal, muscle strength normal, Procedure: Six gail removed without difficulty. Patient tolerated well. Staple line remains well-approximated without drainage. ASSESSMENT/PLAN: 1. Encounter for staple removal - ICD9: V58.32, ICD10: Z48.02 - successfully removed -Discussed with caregiver and patient sign and symptoms to monitor for infectious process. Verbalize understanding - follow-up as needed Davina Adames APRN.CNP Prescription instructions reviewed with patient as applicable. Patient advised if symptoms do not improve or if symptoms worsen sooner, to contact their primary care physician. Potential red flag symptoms discussed with the patient. Reviewed appropriate action plan to take if red flag symptoms occur. Patient agreeable to treatment plan. CNOV Observed: 02/19/2018 Status: COMPLETED Source: [place] 1:00 PM [facility] REPOSITORY Office Visit (FAMPWS) ANSLEY OLIVAS ([id number]) 1940 M Date Time Provider Department 02/19/18 1:00 PM DAVINA ADAMES [facility] During your visit today, we recorded the following information about you: Pulse Respiration Blood pressure Weight 88/minute 18/minute 134/64 92.5 kg Davina Adames APRN.CNP 02/19/2018 3:12 PM Signed 02/19/2018 Patient presents with: Staple Removal SUBJECTIVE: This is a 78 year old that is here today for Above Complaints. On Thursday was going to bathroom and lost his balance and hit left side of head. Went to [facility]. Ct Scan was done which showed no acute intracranial abnormality. He was on coumadin but that was put on hold by his senior data architect. Gail placed to top of head d/t laceration. 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 Jose Ferreira - Hep C w/o coma, chronic (HCC) Grade 1 Stage I - Kidney disease - Mohs for BCC, left cheek 02-02-08 02/03/2008 - Morbid obesity (HCC) - Renal failure 11/03/2016 - SCAR ANDamp; FIBROSIS OF SKIN 07/19/2008 - SOLAR LENGINES///DYSCHROMIA OTHER 07/19/2008 - Unspecified essential hypertension ALLERGIES Beta Blockers [Beta-Blockers (Beta-Adrenergic Blocking Agts)]; Sulfa (Sulfonamide Antibiotics) MEDICATIONS Current Outpatient Prescriptions: oxyCODONE IR (ROXICODONE) 5 mg immediate release tablet Take 1 tablet by mouth every 8 hours as needed for Pain for up to 30 days.Earliest Fill Date: 01/06/18 metoprolol tartrate, short acting, (LOPRESSOR) 50 mg tablet Take 1 tablet by mouth twice daily. senna-docusate (SENNA PLUS) 8.6-50 mg per tablet Take 1 tablet by mouth once daily. dicyclomine (BENTYL) 10 mg capsule Take 2 capsules by mouth three times daily before meals. omeprazole (PRILOSEC) 20 mg capsule Take 1 capsule by mouth once daily. warfarin (COUMADIN) 2.5 mg tablet 5mg Mon and Fri; and 2.5mg other days or as directed. tamsulosin ER (FLOMAX) 0.4 mg cp24 Take 2 capsules by mouth once daily at 5:30 Ammonium,Pot.and Sodium Lactates (AMLACTIN) crea Apply 1 application to affected area once daily. COMPOUNDED PRESCRIPTION Front wheeled walked with seat attachmentDx (M15.9) Generalized osteoarthritis; (R53.1) Weakness, (R26.81) Gait instability ufubazvcobYAHQU-iekxws-hfztflurd (BMX 1:1:1) 1:1:1 liqd Gargle 5ml and swallow every 4 hours as needed. May use 20 minutes prior to eating COMPOUNDED PRESCRIPTION Home BP cuff, Dx: HTN labile No current facility-administered medications for this visit. Medications and allergies reviewed by this provider. SOCIAL HISTORY Social History Marital status: Spouse name: Phyllis Years of education: Number of children: 3 Occupational History Occupation Employer Comment retired Social History Main Topics Smoking status: Former Smoker Packs/day: 1.00 Years: 10.00 Types: Cigarettes Quit date: 11/22/1969 Smokeless status: Never Used Alcohol use: No Drug use: No REVIEW OF SYSTEMS NEURO: No history of headaches, syncope, paralysis, seizures or tremors All other reviewed and negative other than HPI. OBJECTIVE: BP 134/64 (BP Site: Right Arm, BP Position: Sitting, BP Cuff Size: Regular Adult) Pulse 88 Resp 18 Wt 92.5 kg (204 lb) BMI 37.31 kg/m2. Vital signs reviewed by this provider. APPEARANCE Well appearing, alert, in no acute distress, well- hydrated, well nourished. Alert and oriented x 3 SKIN Large ecchymotic area around left eye and left side of head. 6 gail to top of head. Staple line is irregular with a approximate 1.5 cm area and a 2.0 cm area in length. Some dried blood on staple line. Staple line well-approximated with out erythema, swelling, or drainage. Neuro: Is wheelchair bound.Reflexes normal and symmetric. Sensation grossly intact., Negative findings: speech normal, mental status intact, cranial nerves 2-12 intact, muscle tone normal, muscle strength normal, Procedure: Six gail removed without difficulty. Patient tolerated well. Staple line remains well-approximated without drainage. ASSESSMENT/PLAN: 1. Encounter for staple removal - ICD9: V58.32, ICD10: Z48.02 - successfully removed -Discussed with caregiver and patient sign and symptoms to monitor for infectious process. Verbalize understanding - follow-up as needed Davina Adames APRN.TUNNEL HEADING INSPECTOR Prescription instructions reviewed with patient as applicable. Patient advised if symptoms do not improve or if symptoms worsen sooner, to contact their primary care physician. Potential red flag symptoms discussed with the patient. Reviewed appropriate action plan to take if red flag symptoms occur. Patient agreeable to treatment plan. Davina Adames APRN.CNP 02/19/2018 1:30 PM Signed Continue to observe area for redness, increased swelling, yellow/green drainage, fever, chills, and body aches. Notify office Referring Provider: SELF [[id number]] Allergies As of Date: 02/19/2018 Noted Allergy Reaction BETA BLOCKERS (BETA-BLOCKERS (BET*10/04/2010 14 - Other: See Comments Comments: Severe fatigue SULFA (SULFONAMIDE ANTIBIOTICS) 08/14/2005 4 - Hives Date Reviewed: 02/19/2018 Reviewed by: Martha Shukla STRIP CUTTING MACHINE OPERATOR - Fully Assessed Reason for Visit: Staple Removal [428] Primary Visit Diagnosis:Encounter for staple removal [Z48.02] Prescriptions as of 02/19/2018 Sig: OXYCODONE 5 MG TABLET Take 1 tablet by mouth every * METOPROLOL TARTRATE 50 MG TAB* Take 1 tablet by mouth twice * SENNOSIDES 8.6 MG-DOCUSATE SO* Take 1 tablet by mouth once d* DICYCLOMINE 10 MG CAPSULE Take 2 capsules by mouth thre* OMEPRAZOLE 20 MG CAPSULE,AMA* Take 1 capsule by mouth once * WARFARIN 2.5 MG TABLET 5mg Mon and Fri; and 2.5mg ot* TAMSULOSIN 0.4 MG CAPSULE Take 2 capsules by mouth once* AMMONIUM LACTATE-SODIUM LACTA* Apply 1 application to affect* COMPOUNDED PRESCRIPTION Front wheeled walked with sea* KRRLUWDZMRCCEGZ-SYEVBJN-FLPYI* Gargle 5ml and swallow every * * COMPOUNDED PRESCRIPTION Home BP cuff, Dx: HTN labile Problem List As Of Date 02/19/2018 Noted Resolved MORBID OBESITY [E66.01] Essential hypertension [I10] 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] INVALID FOR* HERPES ZOSTER NOS [B02.9] INVALID FOR* DYSMETABOLIC SYNDROME X [E88.81] ANEMIA NOS [D64.9] Mohs for BCC, left cheek 02-03-08 [173.8] INVALID FOR* ACTINIC KERATOSES (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 Complication of dialysis access insertion (HCC)*INVALID FOR* Acute deep vein thrombosis (DVT) of both upper *INVALID FOR* ESRD on hemodialysis (HCC) [N18.6, Z99.2] INVALID FOR* More... Weakness [R53.1] INVALID FOR* More... BPH with obstruction/lower urinary tract sympto*INVALID FOR* More... 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 Gait instability [R26.81] INVALID FOR* Other instructions from your clinician: Continue to observe area for redness, increased swelling, yellow/green drainage, fever, chills, and body aches. Notify office Encounter Status:Closed by DAVINA ADAMES CNP on 02/19/18 EMERGENCY DEPARTMENT Observed: 02/15/2018 Status: F Source: [place] SUMMARY 7:[address] [facility] REPOSITORY [facility] Medical Records Department [address] [place] [address] Emergency Department Summary 02/15/18 0604 MR#: [id number] Acct: [id number] Name: ANSLEY OLIVAS Rep #: [id number] : 1940 78 From: Chelo Vásquez DO PCP: Yesenia Crocker MD Status: DEP ER - ER Visit Summary Date of Service: 02/15/18 Chief Complaint: [] Scalp laceration History of Present Illness: The patient is a 78 M [] patient reportedly had a fall just prior to arrival. He denies dizziness. Reports he just lost my balance. Denies neck pain, back pain, pelvic pain. Denies extremity pain. Denies headache. 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 He has a history of end-stage renal disease on dialysis. Physical Examination: [] Afebrile, vital signs stable. 78-year-old male in no acute distress. Conversational. Examination of the head reveals a 4 cm full-thickness scalp laceration. To the left temporoparietal scalp there was a 2 cm skin avulsion that did not require repair. Neck was nontender on exam in the midline. No paraspinal tenderness. Good range of motion on exam. Back exam was negative. Cardiovascular exam was regular rate and rhythm. Lungs are clear to auscultation. Abdomen was soft nontender. Pelvis was stable. Test Results: [] CT of the head was negative. Emergency Department Course and Treatment: [] After CT head returned negative patient had the area cleaned with saline and Shur-Clens. Anesthetized locally 1% lidocaine. 6 gail were used to approximate the wound nicely. Patient tolerated the procedure well. Patient and patient's at the bedside were instructed to have gail removed in 5 days. Treatment Plan: [] Follow-up with PCP or emergency department in 5 days for staple removal. Disposition: [] Discharge, stable. Impression: [] 4 cm scalp laceration Scalp laceration staple repair by ED physician This note was generated with AppSpotr dictation software. It may contain incorrect words, spelling, and punctuation that were not noted in review of the chart prior to signing ED Disposition - Plan for ED Patient: Chief Complaint: Fall Referrals: Yesenia Crocker MD [Primary Care Provider] - What to do if you have Problems For any increased pain, shortness of breath, bleeding, nausea or vomiting, chest pain, or any unexpected problems, contact your Primary Care Provider. Call [facility] ([phone]) or report to the closest Emergency Room. Call 911 if necessary. 02/15/18 0719 <Electronically signed by Chelo Vásquez DO> Date Chelo Vásquez DO Cosigner Signature (If Indicated): Date CC: Yesenia Crocker MD DISCHARGE INSTRUCTION Observed: 02/15/2018 Status: F Source: [place] 6:[address] [facility] REPOSITORY [facility] Medical Records Department [address] [place] [address] Discharge Instruction 02/15/18 0608 MR#: [id number] Acct: [id number] Name: ANSLEY OLIVAS Mirna Rep #: [id number] : 1940 78 From: Chelo Vásquez DO PCP: Yesenia Crocker MD Status: REG ER ED Disposition - Plan for ED Patient: Disposition: Home or Assisted Living Chief Complaint: Fall Instructions: ED Prevention Fall, ED Laceration Scalp Sutr Stap Ch Referrals: Yesenia Crocker MD [Primary Care Provider] - What to do if you have Problems For any increased pain, shortness of breath, bleeding, nausea or vomiting, chest pain, or any unexpected problems, contact your Primary Care Provider. Call [facility] ([phone]) or report to the closest Emergency Room. Call 911 if necessary. 02/15/18 0609 <Electronically signed by Chelo Vásquez DO> Date Chelo Vásquez DO Cosigner Signature (If Indicated): Date CC: Yesenia Crocker MD BRAIN/HEAD WITHOUT Observed: 02/15/2018 Status: F Source: [place] CONTRAST 4:[address] [facility] REPOSITORY [facility] Imaging Services [address] [place] [address] Brain/Head without Contrast MR#: [id number] Acct: [id number] Name: BRENDONANSLEY R Rep #: [id number] : 1940 M 78 From: Giovanny Moody PCP: Yesenia Crocker MD Status: REG ER Study: Brain/Head without Contrast Date of Exam: 02/15/18 Exam# [id number] Ordering Dr: Chelo Vásquez DO STUDY: CT BRAIN WITHOUT CONTRAST REASON FOR EXAM: Male, 78 years old. Fall, head laceration. RADIATION DOSAGE (If Supplied By Facility): CTDIvol = ( 44.99 ) mGy, DLP = ( 745.49 ) mGycm TECHNIQUE: Transaxial CT imaging of the brain was performed without administration of intravenous contrast material. Individualized dose optimization techniques were used for this CT. COMPARISON: None. FINDINGS: Moderate left frontal scalp hematoma. Normal calvarium. Normal size ventricles and extra-axial spaces for the patient's age. Normal white matter tracts of the cerebral hemispheres. Normal basal ganglia and thalami. Normal brainstem. Normal cerebellum. There is no intracranial hemorrhage. There are no findings of an acute ischemic infarction. Normal visualized paranasal sinuses. Atherosclerotic calcification of the supraclinoid portion of the internal carotid arteries. CT/Brain/Head without Contrast IMPRESSION: No acute intracranial abnormality. Left frontal scalp hematoma. Electronically Signed: Giovanny Moody MD at 5:38 EDT , Service support , CC: Yesenia Crocker MD; Chelo Vásquez DO 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: Signed PROGRESS Observed: 01/21/2018 Status: COMPLETED Source: [place] 7:35 PM [facility] [place] REPOSITORY [facility] ID: [id number] Author: Mansoor Prasad (Pa) Service: (none) Author Type: Physician Flooring Salesperson Type: Progress Notes Filed: 01/22/2018 7:03 PM Note Text: [facility] PATIENT INFO: Ansley Olivas 77 year old PCP: Yesenia Crocker MD Referred by: Yesenia Crocker MD Consult: Aconsultation requested by Yesenia Crocker MD for an opinion regarding urinary retention and incontinence My final recommendations communicated back to the requesting physician by way of shared Medical record. CHIEF COMPLAINT: urinary retention and incontinence HPI: This is a 77 year old male, who has urinary retention and incontinence , which started in 2018, and involves the Urine Patient states this moderate in severity and moderate in quality, and is happening constantly Aggravating factors: Dialysis , Alleviating Factors: No . And the patient denies having Fever, Chills, Rigors, Nausea and Vomiting VOIDING SYMPTOMS: NTF: 4-6 Times Small Amounts DTF: Constant Leak into pads FOS: Poor Hesitancy: Yes Straining: Yes Intermittency: No Urgency: No Frequency: No Dysuria: No Gross Hematuria: No U/A Dipstick Positive Blood - Only No Incomplete Voiding: No Double Voiding: No Post Void Dribbling: No Incontinence: Yes ALLERGY: ALLERGIES Allergen Reactions - Beta Blockers [Beta* Other: See Comments Severe fatigue - Sulfa (Sulfonamide * Hives MEDICATIONS: Current Outpatient Prescriptions: amoxicillin (AMOXIL) 875 mg tablet Take 1 tablet by mouth once daily for 5 days. Take with food. Take after dialysis on dialysis days. Disp: 5 tablet Rfl: 0 oxyCODONE IR (ROXICODONE) 5 mg immediate release tablet Take 1 tablet by mouth every 8 hours as needed for Pain for up to 30 days.Earliest Fill Date: 01/06/18 Disp: 60 tablet Rfl: 0 metoprolol tartrate, short acting, (LOPRESSOR) 50 mg tablet Take 1 tablet by mouth twice daily. Disp: 180 tablet Rfl: 3 senna-docusate (SENNA PLUS) 8.6-50 mg per tablet Take 1 tablet by mouth once daily. Disp: 90 tablet Rfl: 3 dicyclomine (BENTYL) 10 mg capsule Take 2 capsules by mouth three times daily before meals. Disp: 540 capsule Rfl: 3 omeprazole (PRILOSEC) 20 mg capsule Take 1 capsule by mouth once daily. Disp: 90 capsule Rfl: 3 warfarin (COUMADIN) 2.5 mg tablet 5mg Mon and Fri; and 2.5mg other days or as directed. Disp: 60 tablet Rfl: 11 tamsulosin ER (FLOMAX) 0.4 mg cp24 Take 2 capsules by mouth once daily at 5:30 Disp: 180 capsule Rfl: 3 Ammonium,Pot.and Sodium Lactates (AMLACTIN) crea Apply 1 application to affected area once daily. Disp: 150 g Rfl: 5 COMPOUNDED PRESCRIPTION Front wheeled walked with seat attachmentDx (M15.9) Generalized osteoarthritis; (R53.1) Weakness, (R26.81) Gait instability Disp: 1 Device Rfl: 0 unqatokclbCEOGO-rqtfed-ggyqlueto (BMX 1:1:1) 1:1:1 liqd Gargle 5ml and swallow every 4 hours as needed. May use 20 minutes prior to eating Disp: 240 mL Rfl: 0 COMPOUNDED PRESCRIPTION Home BP cuff, Dx: HTN labile Disp: 1 Device Rfl: 0 No current facility-administered medications for this visit. 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 Jose Ferreira - Hep C w/o coma, chronic (HCC) Grade 1 Stage I - Kidney disease - Mohs for BCC, left cheek 08 02/03/2008 - Morbid obesity (HCC) - Renal failure 11/03/2016 - SCAR AND FIBROSIS OF SKIN 07/19/2008 - SOLAR LENGINES///DYSCHROMIA OTHER 07/19/2008 - Unspecified essential hypertension Past Surgical History PAST SURGICAL HISTORY Procedure Laterality Date - (2016) TRLUML BALO ANGIOP CTR DIALYSIS SEG W/IMG PRAVEENA 06/03/2017 - AV FUSE, UPPR ARM, CEPHALIC 12/26/2016 - COLONOSCOP W/ OR W/O BRS SPEC Colonoscopy - COLONOSCOP W/ OR W/O BRSH SPEC 06/14/2008 Colonoscopy - COLOSTOMY 1969' - EGD W/O OR W/BRUSH/WASH 09/29/2016 EGD - INS TUNNEL CVC W/O PORT >=5 Right 10/23/2016 - INS TUNNEL CVC W/O PORT >=5 Left 11/03/2016 - INS TUNNEL CVC W/O PORT >=5 01/06/2017 - INTRO CATH DIALYSIS CIRCUIT W/TCAT PLMT IV STENT 02/12/2017 - INTRO CATH DIALYSIS CIRCUIT W/TCAT PLMT IV STENT Left 03/2017 - REMOVAL JADEN CVC W/O PUMP Right 11/03/2016 - REMOVAL JADEN CVC W/O PUMP 01/06/2017 - REMOVAL JADEN CVC W/O PUMP Right 03/19/2017 Removal right IJ catheter - REPAIR ING HERNIA,5+Y/O,REDUCIBL Right 03/17/2001 Hernia repair, inguinal - US GUIDE, VASCULAR ACCESS Left 03/2017 Family History FAMILY HISTORY Problem Relation Age of Onset - Hypertension Mother - Heart Father [place] - Heart Brother [place] - Cancer Sister - Cancer Brother - Stroke Brother 2 brothers - polio [OTHER] Sister REVIEW OF SYSTEMS: General: General: Well developed, well nourished. No acute distress HEENT: Negative for sore throat, difficulty swallowing. Negative for frequent or significant headaches, changes in vision or hearing. Cardiovascular: Positive: Hypertension and CHF Respiratory: Negative for current cough, dyspnea. No hx of pneumonia in the past six weeks Gastrointestinal: No history of GERD, PUD, abd pain, difficulty swallowing, GI bleed. Renal: Postive: On dialysis Musculoskeletal: Negative for joint pain or swelling, back pain or muscle pain. Skin: Negative for lesions, rash and itching. Psychological: No history of psychiatric symptoms or problems. Neurologic: No neurological symptoms or problems. Hematology/Oncology: No history of bleeding or clotting disorder. Pt is not taking anti-coagulation or platelet medications. No history of hematological symptoms or problems. Endocrine: No history of DM; has not taken steroids w/in past 30 days. PHYSICAL EXAMINATION: General Appearance/ Constitutional: Well developed, well nourished, and in no apparent distress HEENT: Not examined Neck: Lymph Nodes: Not examined Cardiac: Normal Breast: Not examined Pulmonary: Ascultation: Normal Effort: Normal GI: Soft, Benign and Non-tender Peripheral Vascular: Not examined Extremities: Cyanosis absent, Clubbing absent and Edema absent Skin: Normal Neurologic: Grossly non-focal, Alert and oriented and Affect appropriate ADDITIONAL DATA REVIEWED: Most recent imaging Most recent labs Results for orders placed or performed in visit on 01/21/18 UA DIP, URINE (POC) Result Value Ref Range GLUCOSE UA (POCT) 100 (A) Neg mg/dL BILIRUBIN UA (POCT) Negative Neg KETONE UA (POCT) Negative Neg mg/dL SPECIFIC GRAVITY UA (POCT) 1.020 1.005 - 1.030 HEMOGLOBIN/BLOOD UA (POCT) Small (A) Neg PH UA (POCT) 8.5 4.5 - 8 PROTEIN UA (POCT) >=300 (A) Neg mg/dL UROBILINOGEN UA (POCT) 0.2 Normal(<1.1) E.U./dL NITRITE UA (POCT) Negative Neg LEUKOCYTES UA (POCT) Moderate (A) Neg COLOR UA (POCT) Yellow CLARITY UA (POCT) Cloudy UROLOGICAL DATA: Post Void Residual, Ultrasound: 535 ml IMPRESSION / PLAN: > History of Urinary Retention possible urethral stricture > PVR of 535 ml after 100 ml void in urinal > difficulty passing a straight catheter , feels like a stricture, did not force the catheter > Patient is able to empty some urine on his own, he is on a M, W, F dialysis and still making urine > urine is very cloudy and sent for culture today > Recommend teaching ISC, but since catheter could not be passed by MA I recommend a Flex cysto under sedation he may require uretheral dilation at the same time and he was in pain and very anxious with just the simple ISC I spent approximately 40 minutes in this visit, with more than 50% of the time devoted to patient discussion, counseling, review of records and/or coordination of care. Mansoor Prasad, DAVID, MT, PASTOR PROTIME Collected: 01/21/2018 Status: F Source: [place] 3:30 PM [facility] REPOSITORY TYPE CODE TESTS RESULT OUT OF RANGE REFERENCE UNITS LAB PSEC 9.7-13.0 sec High PT Sec 33.5 LAB INR 0.9-1.3 High PT INR 3.5 Result Comment: Vitamin K Antagonist (VKA) Therapeutic Range: INR 2 to 3 (Target INR of 2.5) Note: For patients treated with VKA drugs, such as warfarin, the [place] [employer] 2012 Guideline recommends a therapeutic INR range of 2 to 3 (target INR of 2.5). This recommendation includes high-risk patients with antiphospholipid syndrome with previous arterial or venous thromboembolism, current-generation mechanical or bioprosthetic aortic heart valve replacement. Note: Patients with mechanical aortic valve replacement and additional risk factors for thromboembolic events (atrial fibrillation, previous thromboembolism, LV dysfunction, hypercoagulable conditions) or an older generation mechanical AVR (i.e., ball in-Cage) or any mechanical MVR should have a INR therapeutic range of 2.5 to 3.5 (target INR of 3). Anna Marie ISLAS, et al. Chest 2012, 141:7S-47S Teodoro RA, et al. [facility] 2017, 70: 252-289 Performed By: #### PT #### [facility] [address] [place], [place] [address] CNOV Observed: 01/21/2018 Status: COMPLETED Source: [place] 1:30 PM [facility] REPOSITORY Office Visit (UROLWS) ANSLEY OLIVAS ([id number]) 1940 M Date Time Provider Department 01/21/18 1:30 PM MANSOOR PRASAD) UROLWS During your visit today, we recorded the following information about you: Pulse Blood pressure Weight Height 58/minute 128/62 92.1 kg 1.575 m NADIR Ramos 01/22/2018 7:03 PM Signed [facility] PATIENT INFO: Ansley Olivas 77 year old PCP: Yesenia Crocker MD Referred by: Yesenia Crocker MD Consult: Aconsultation requested by Yesenia Crocker MD for an opinion regarding urinary retention and incontinence My final recommendations communicated back to the requesting physician by way of shared Medical record. CHIEF COMPLAINT: urinary retention and incontinence HPI: This is a 77 year old male, who has urinary retention and incontinence , which started in 2018, and involves the Urine Patient states this moderate in severity and moderate in quality, and is happening constantly Aggravating factors: Dialysis , Alleviating Factors: No . And the patient denies having Fever, Chills, Rigors, Nausea and Vomiting VOIDING SYMPTOMS: NTF: 4-6 Times Small Amounts DTF: Constant Leak into pads FOS: Poor Hesitancy: Yes Straining: Yes Intermittency: No Urgency: No Frequency: No Dysuria: No Gross Hematuria: No U/A Dipstick Positive Blood - Only No Incomplete Voiding: No Double Voiding: No Post Void Dribbling: No Incontinence: Yes ALLERGY: ALLERGIES Allergen Reactions - Beta Blockers [Beta* Other: See Comments Severe fatigue - Sulfa (Sulfonamide * Hives MEDICATIONS: Current Outpatient Prescriptions: amoxicillin (AMOXIL) 875 mg tablet Take 1 tablet by mouth once daily for 5 days. Take with food. Take after dialysis on dialysis days. Disp: 5 tablet Rfl: 0 oxyCODONE IR (ROXICODONE) 5 mg immediate release tablet Take 1 tablet by mouth every 8 hours as needed for Pain for up to 30 days.Earliest Fill Date: 01/06/18 Disp: 60 tablet Rfl: 0 metoprolol tartrate, short acting, (LOPRESSOR) 50 mg tablet Take 1 tablet by mouth twice daily. Disp: 180 tablet Rfl: 3 senna-docusate (SENNA PLUS) 8.6-50 mg per tablet Take 1 tablet by mouth once daily. Disp: 90 tablet Rfl: 3 dicyclomine (BENTYL) 10 mg capsule Take 2 capsules by mouth three times daily before meals. Disp: 540 capsule Rfl: 3 omeprazole (PRILOSEC) 20 mg capsule Take 1 capsule by mouth once daily. Disp: 90 capsule Rfl: 3 warfarin (COUMADIN) 2.5 mg tablet 5mg Mon and Fri; and 2.5mg other days or as directed. Disp: 60 tablet Rfl: 11 tamsulosin ER (FLOMAX) 0.4 mg cp24 Take 2 capsules by mouth once daily at 5:30 Disp: 180 capsule Rfl: 3 Ammonium,Pot.and Sodium Lactates (AMLACTIN) crea Apply 1 application to affected area once daily. Disp: 150 g Rfl: 5 COMPOUNDED PRESCRIPTION Front wheeled walked with seat attachmentDx (M15.9) Generalized osteoarthritis; (R53.1) Weakness, (R26.81) Gait instability Disp: 1 Device Rfl: 0 rhacovacisQUYLT-qqwpfs-jcanlnrok (BMX 1:1:1) 1:1:1 liqd Gargle 5ml and swallow every 4 hours as needed. May use 20 minutes prior to eating Disp: 240 mL Rfl: 0 COMPOUNDED PRESCRIPTION Home BP cuff, Dx: HTN labile Disp: 1 Device Rfl: 0 No current facility-administered medications for this visit. 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 Jose Ferreira - Hep C w/o coma, chronic (HCC) Grade 1 Stage I - Kidney disease - Mohs for BCC, left cheek 02-02-08 02/03/2008 - Morbid obesity (HCC) - Renal failure 11/03/2016 - SCAR ANDamp; FIBROSIS OF SKIN 07/19/2008 - SOLAR LENGINES///DYSCHROMIA OTHER 07/19/2008 - Unspecified essential hypertension Past Surgical History PAST SURGICAL HISTORY Procedure Laterality Date - (2016) TRLUML BALO ANGIOP CTR DIALYSIS SEG W/IMG SANDamp;I 06/03/2017 - AV FUSE, UPPR ARM, CEPHALIC 12/26/2016 - COLONOSCOP W/ OR W/O BRS SPEC Colonoscopy - COLONOSCOP W/ OR W/O BRSH SPEC 06/14/2008 Colonoscopy - COLOSTOMY - EGD W/O OR W/BRUSH/WASH 09/29/2016 EGD - INS TUNNEL CVC W/O PORT ANDgt;=5 Right 10/23/2016 - INS TUNNEL CVC W/O PORT ANDgt;=5 Left 11/03/2016 - INS TUNNEL CVC W/O PORT ANDgt;=5 01/06/2017 - INTRO CATH DIALYSIS CIRCUIT W/TCAT PLMT IV STENT 02/12/2017 - INTRO CATH DIALYSIS CIRCUIT W/TCAT PLMT IV STENT Left 03/2017 - REMOVAL JADEN CVC W/O PUMP Right 11/03/2016 - REMOVAL JADEN CVC W/O PUMP 01/06/2017 - REMOVAL JADEN CVC W/O PUMP Right 03/19/2017 Removal right IJ catheter - REPAIR ING HERNIA,5+Y/O,REDUCIBL Right 03/17/2001 Hernia repair, inguinal - US GUIDE, VASCULAR ACCESS Left 03/2017 Family History FAMILY HISTORY Problem Relation Age of Onset - Hypertension Mother - Heart Father [place] - Heart Brother [place] - Cancer Sister - Cancer Brother - Stroke Brother 2 brothers - polio [OTHER] Sister REVIEW OF SYSTEMS: General: General: Well developed, well nourished. No acute distress HEENT: Negative for sore throat, difficulty swallowing. Negative for frequent or significant headaches, changes in vision or hearing. Cardiovascular: Positive: Hypertension and CHF Respiratory: Negative for current cough, dyspnea. No hx of pneumonia in the past six weeks Gastrointestinal: No history of GERD, PUD, abd pain, difficulty swallowing, GI bleed. Renal: Postive: On dialysis Musculoskeletal: Negative for joint pain or swelling, back pain or muscle pain. Skin: Negative for lesions, rash and itching. Psychological: No history of psychiatric symptoms or problems. Neurologic: No neurological symptoms or problems. Hematology/Oncology: No history of bleeding or clotting disorder. Pt is not taking anti-coagulation or platelet medications. No history of hematological symptoms or problems. Endocrine: No history of DM; has not taken steroids w/in past 30 days. PHYSICAL EXAMINATION: General Appearance/ Constitutional: Well developed, well nourished, and in no apparent distress HEENT: Not examined Neck: Lymph Nodes: Not examined Cardiac: Normal Breast: Not examined Pulmonary: Ascultation: Normal Effort: Normal GI: Soft, Benign and Non-tender Peripheral Vascular: Not examined Extremities: Cyanosis absent, Clubbing absent and Edema absent Skin: Normal Neurologic: Grossly non-focal, Alert and oriented and Affect appropriate ADDITIONAL DATA REVIEWED: Most recent imaging Most recent labs Results for orders placed or performed in visit on 01/21/18 UA DIP, URINE (POC) Result Value Ref Range GLUCOSE UA (POCT) 100 (A) Neg mg/dL BILIRUBIN UA (POCT) Negative Neg KETONE UA (POCT) Negative Neg mg/dL SPECIFIC GRAVITY UA (POCT) 1.020 1.005 - 1.030 HEMOGLOBIN/BLOOD UA (POCT) Small (A) Neg PH UA (POCT) 8.5 4.5 - 8 PROTEIN UA (POCT) ANDgt;=300 (A) Neg mg/dL UROBILINOGEN UA (POCT) 0.2 Normal(ANDlt;1.1) E.U./dL NITRITE UA (POCT) Negative Neg LEUKOCYTES UA (POCT) Moderate (A) Neg COLOR UA (POCT) Yellow CLARITY UA (POCT) Cloudy UROLOGICAL DATA: Post Void Residual, Ultrasound: 535 ml IMPRESSION / PLAN: ANDgt; History of Urinary Retention possible urethral stricture ANDgt; PVR of 535 ml after 100 ml void in urinal ANDgt; difficulty passing a straight catheter , feels like a stricture, did not force the catheter ANDgt; Patient is able to empty some urine on his own, he is on a M, W, F dialysis and still making urine ANDgt; urine is very cloudy and sent for culture today ANDgt; Recommend teaching ISC, but since catheter could not be passed by MA I recommend a Flex cysto under sedation he may require uretheral dilation at the same time and he was in pain and very anxious with just the simple ISC I spent approximately 40 minutes in this visit, with more than 50% of the time devoted to patient discussion, counseling, review of records and/or coordination of care. Mansoor Prasad, NISHIS, MT, PA-C Referring Provider: SONYA ZAMUDIO ([facility]) [[id number]] Allergies As of Date: 01/21/2018 Noted Allergy Reaction BETA BLOCKERS (BETA-BLOCKERS (BET*10/04/2010 14 - Other: See Comments Comments: Severe fatigue SULFA (SULFONAMIDE ANTIBIOTICS) 08/14/2005 4 - Hives Date Reviewed: 01/21/2018 Reviewed by: Aurea Cheung Ma - Fully Assessed Reason for Visit: Consult [173] Urinary Frequency [1086] Primary Visit Diagnosis:Urethral stricture, unspecified stricture type [N35.9] Other Visit Diagnoses:Feeling of incomplete bladder emptying [R39.14] ESRD on hemodialysis (HCC) [N18.6, Z99.2] BPH with obstruction/lower urinary tract symptoms [N40.1, N13.8] Order(s):UA DIP, URINE (POC) [8946882] Order #: [id number] #:[id number] URINE CULTURE [SQURCUL] Order #: [id number]. #:[id number] Prescriptions as of 01/21/2018 Sig: AMOXICILLIN 875 MG TABLET Take 1 tablet by mouth once d* OXYCODONE 5 MG TABLET Take 1 tablet by mouth every * METOPROLOL TARTRATE 50 MG TAB* Take 1 tablet by mouth twice * SENNOSIDES 8.6 MG-DOCUSATE SO* Take 1 tablet by mouth once d* DICYCLOMINE 10 MG CAPSULE Take 2 capsules by mouth thre* OMEPRAZOLE 20 MG CAPSULE,AMA* Take 1 capsule by mouth once * WARFARIN 2.5 MG TABLET 5mg Mon and Fri; and 2.5mg ot* TAMSULOSIN 0.4 MG CAPSULE Take 2 capsules by mouth once* AMMONIUM LACTATE-SODIUM LACTA* Apply 1 application to affect* COMPOUNDED PRESCRIPTION Front wheeled walked with sea* LPWZMTCSVYRVCRE-GXZOWPY-GYZUX* Gargle 5ml and swallow every * * COMPOUNDED PRESCRIPTION Home BP cuff, Dx: HTN labile Problem List As Of Date 01/21/2018 Noted Resolved MORBID OBESITY [E66.01] Essential hypertension [I10] 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] INVALID FOR* HERPES ZOSTER NOS [B02.9] INVALID FOR* DYSMETABOLIC SYNDROME X [E88.81] ANEMIA NOS [D64.9] Mohs for BCC, left cheek 02-03-08 [173.8] INVALID FOR* ACTINIC KERATOSES (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 Complication of dialysis access insertion (HCC)*INVALID FOR* Acute deep vein thrombosis (DVT) of both upper *INVALID FOR* ESRD on hemodialysis (HCC) [N18.6, Z99.2] INVALID FOR* More... Weakness [R53.1] INVALID FOR* More... BPH with obstruction/lower urinary tract sympto*INVALID FOR* More... 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 Gait instability [R26.81] INVALID FOR* Follow-up and Disposition History Recorded Encounter Status:Closed by MANSOOR PRASAD PA-C on 01/22/18 Observed: 01/21/2018 Status: F Source: [place] URINE CULTURE 5:31 AM [facility] REPOSITORY Sp. Request/Comment: - Specimen received in preservative Culture Result - No growth (<1,000 CFU/ml) Performed By: #### URCUL #### [facility] [address] [place], [place] [address] Observed: 01/14/2018 Status: F Source: [place] URINE CULTURE 11:48 AM [facility] REPOSITORY Sp. Request/Comment: - Specimen received in preservative Culture Result - >=100,000 CFU/ml Enterococcus faecalis --> ABNORMAL ALERT Cephalosporins, clindamycin, and TMP-SMX are not effective for the treatment of enterococcal infections. --> ABNORMAL ALERT ORGANISM: Enterococcus faecalis METHOD: Minimum inhibitory concentration(Vitek) Antibiotic Interp CONSTANTINE Status Ampicillin SUSCEPTIBLE <=2 F Nitrofurantoin SUSCEPTIBLE <=16 F Vancomycin SUSCEPTIBLE 1 F Performed By: #### URCUL #### [facility] [address] [place], [place] [address] URINALYSIS WITH Collected: 01/14/2018 Status: F Source: [place] MICROSCOPIC 11:47 AM [facility] REPOSITORY TYPE CODE TESTS RESULT OUT OF RANGE REFERENCE UNITS LAB UCOL Yellow Color Yellow LAB [facility] Clear Clarity Abnormal Cloudy Alert LAB UGLUC Negative mg/dL Glucose, Urine Negative LAB UBIL Negative Bilirubin, Urine Negative LAB UKET Negative Ketones, Urine Negative LAB USPG 1.005-1.030 Specific [place], Ur 1.025 LAB UHGB Negative Abnormal Hemoglobin/Blood, 1+ Alert Ur LAB UPH 4.5-8.0 pH 7.5 LAB UPROT Negative mg/dL Protein, Abnormal Urine >=300 Alert LAB UUROB Normal Urobilinogen Normal LAB UNITR Negative Nitrites Negative LAB ULKEST Negative Leukest Abnormal 1+ Alert LAB UMCOM Urine [place] Comment SEE COMMENT Result Comment: Microscopic Performed on Unspun Specimen Dipstick done on supernatant LAB UWBC 0-5 /HPF Abnormal Alert WBC >25 LAB URBC 0-3 /HPF RBC 0-3 LAB UCAST 0 /LPF Cast SEE COMMENT Result Comment: 0 LAB UEPI /HPF Epithelial SEE Cells COMMENT Result Comment: Few Squamous Epithelial Cells Performed By: #### UAWMIC #### [facility] [address] [place], [place] [address] US KIDNEY/BLADDER Observed: 01/14/2018 Status: F Source: [place] 11:32 AM [facility] REPOSITORY * * *Final Report* * * DATE OF EXAM: Jan 14 2018 11:32AM [facility] 1055 - US KIDNEY/BLADDER / PROCEDURE REASON: Frequency of micturition * * * * Physician Interpretation * * * * RENAL ULTRASOUND COMPARISON: 11/29/2015 renal ultrasound, 01/14/[address] INDICATION: Frequency of micturition TECHNIQUE: Real-time grayscale ultrasound imaging of the kidneys was performed with color Doppler imaging. Images were obtained and stored in a permanent archive. RESULT: Right kidney measures 8.4 cm in length and demonstrates diffusely thinned renal cortex (0.9 cm). Mild hydronephrosis does not change after voiding. Anechoic avascular 1.5 x 1 x 1.9 cm upper pole lesion with distal acoustic enhancement is compatible with a simple cyst. No urinary calculus. Left kidney measures 9.8 cm in length and demonstrates normal renal cortical thickness (1.2 cm). No mass, calculus, or hydronephrosis. Renal parenchyma is isoechoic relative to the adjacent index organ. Incompletely distended urinary bladder. Single image of the spleen is submitted, measuring 14.6 x 7.8 cm in maximal transaxial diameter. - IMPRESSION: 1. Mild right hydronephrosis without change after voiding. This is new since the prior studies. Obstructing etiology is not appreciated. 2. Findings suggestive of chronic medical renal disease of the right kidney. 3. Simple right renal cortical cyst. 4. Unremarkable sonographic appearance of the left kidney. 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: PSCB Transcribe Date/Time: Jan 14 2018 12:25P Dictated by : ARIEL HACKETT MD This examination was interpreted and the report reviewed and electronically signed by: ARIEL HACKETT MD on Jan 14 2018 12:30PM EST [id number] Observed: 01/14/2018 Status: COMPLETED Source: [place] 10:50 AM [facility] RE[facility]IT[facility] HNO ID: [id number] Author: Ct Rosas Service: (none) Author Type: (none) Type: Progress Notes Filed: 01/14/2018 11:33 AM Note Text: Radiology Service Progress Note PATIENT NAME: Ansley Olivas DATE OF SERVICE: January 14, 2018 TIME: 10:50 AM PATIENT IDENTITY VERIFICATION COMPLETED USING TWO (2) METHODS: Patient confirmed name verbally and Date of . PATIENT GENDER DATA: Male PATIENT RELEVANT IMPLANT DATA REVIEWED: Not Applicable RADIOLOGY DEPARTMENT: Ultrasound PERIPHERAL IV DATA: Not applicable SIGNED BY: Ct Rosas January 14, 2018 10:50 AM PROGRESS Observed: 01/12/2018 Status: COMPLETED Source: [place] 12:17 PM [facility] REPOSIT[facility] HNO ID: [id number] Author: VINAYAK Doran (Cns) Service: (none) Author Type: Nurse Specialist Type: Progress Notes Filed: 01/12/2018 2:49 PM Note Text: OUTPATIENT VISIT DATE January 12, 2018 OUTPATIENT VISIT TYPE ESTABLISHED PRIMARY CARE PHYSICIAN: Yesenia Crocker MD CHIEF COMPLAINT: Patient presents with: Urinary Urgency: Patient is for urinary frequecy/pressure History of Present Illness: Ansley Olivas is a 77 year old male who was last seen August 2017 by Yesenia Crocker MD. He has been seen in the past for ACTIVE PROBLEM LIST Morbid Obesity (Hcc) Essential hypertension Generalized Osteoarthritis Herpes Zoster Without Mention of Complication Dysmetabolic Syndrome X Anemia, Unspecified Mohs for BCC, left cheek 02-03-08 ACTINIC KERATOSES (Premalignant AK's) ACTINIC DAMAGE//CHR SOLAR SKIN DAMAGE NOS Scar Condition and Fibrosis of Skin H/O BCC'S/SCC'S///PERS HX SKIN MALIGNANCY NEC SOLAR LENTIGINES///DYSCHROMIA OTHER Other Seborrheic Keratosis Contact Dermatitis and Other Eczema, Due to Unspecified Cause Solar Lentigines Actinic Skin Damage Ifg (Impaired Fasting Glucose) Hep C W/O Coma, Chronic (Hcc) Complication of Dialysis Access Insertion Acute Deep Vein Thrombosis (Dvt) of Both Upper Extremities (Hcc) Esrd On Hemodialysis (Hcc) Weakness Bph With Obstruction/Lower Urinary Tract Symptoms 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 ESRD, on hemodialysis. He presents with his who provides some of the history. Reports frequent urination and sensation of lower abdominal / suprapubic pressure or discomfort for approximately one year. Reports urinary frequency, feeling need to urinate every 15 minutes. Does have leakage so wears undergarments to catch this. Currently on Flomax. He does not have a sensation of a full bladder. Completes hemodialysis Thursday and Thursday at HD near [facility], sees senior data architect there. No report of fever at home, no cough, no signs of infection, chills, rigors. No back pain, fever , nausea and vomiting. No recent hospital or ED visits. No new medical problems or medications. Able to obtain medications. No problems with taking medications or note side effects. 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 Jose Ferreira - Hep C w/o coma, chronic (HCC) Grade 1 Stage I - Kidney disease - Mohs for BCC, left cheek 02-02-08 02/03/2008 - Morbid obesity (HCC) - Renal failure 11/03/2016 - SCAR AND FIBROSIS OF SKIN 07/19/2008 - SOLAR LENGINES///DYSCHROMIA OTHER 07/19/2008 - Unspecified essential hypertension PAST SURGICAL HISTORY Procedure Laterality Date - (2016) TRLUML BALO ANGIOP CTR DIALYSIS SEG W/IMG PRAVEENA 06/03/2017 - AV FUSE, UPPR ARM, CEPHALIC 12/26/2016 - COLONOSCOP W/ OR W/O BRSH SPEC Colonoscopy - COLONOSCOP W/ OR W/O BRSH SPEC 06/14/2008 Colonoscopy - COLOSTOMY - EGD W/O OR W/BRUSH/WASH 09/29/2016 EGD - INS TUNNEL CVC W/O PORT >=5 Right 10/23/2016 - INS TUNNEL CVC W/O PORT >=5 Left 11/03/2016 - INS TUNNEL CVC W/O PORT >=5 01/06/2017 - INTRO CATH DIALYSIS CIRCUIT W/TCAT PLMT IV STENT 02/12/2017 - INTRO CATH DIALYSIS CIRCUIT W/TCAT PLMT IV STENT Left 03/2017 - REMOVAL JADEN CVC W/O PUMP Right 11/03/2016 - REMOVAL JADEN CVC W/O PUMP 01/06/2017 - REMOVAL JADEN CVC W/O PUMP Right 03/19/2017 Removal right IJ catheter - REPAIR ING HERNIA,5+Y/O,REDUCIBL Right 03/17/2001 Hernia repair, inguinal - US GUIDE, VASCULAR ACCESS Left 03/2017 FAMILY HISTORY Problem Relation Age of Onset - Hypertension Mother - Heart Father [place] - Heart Brother [place] - Cancer Sister - Cancer Brother - Stroke Brother 2 brothers - polio [OTHER] Sister Social History Substance Use Topics - Smoking status: Former Smoker Packs/day: 1.00 Years: 10.00 Types: Cigarettes Quit date: 11/22/1969 - Smokeless tobacco: Never Used - Alcohol use No ALLERGIES: ALLERGIES Allergen Reactions - Beta Blockers [Beta* Other: See Comments Severe fatigue - Sulfa (Sulfonamide * Hives MEDICATIONS oxyCODONE IR (ROXICODONE) 5 mg immediate release tablet Take 1 tablet by mouth every 8 hours as needed for Pain for up to 30 days.Earliest Fill Date: 01/06/18 metoprolol tartrate, short acting, (LOPRESSOR) 50 mg tablet Take 1 tablet by mouth twice daily. dicyclomine (BENTYL) 10 mg capsule Take 2 capsules by mouth three times daily before meals. omeprazole (PRILOSEC) 20 mg capsule Take 1 capsule by mouth once daily. warfarin (COUMADIN) 2.5 mg tablet 5mg Mon and Fri; and 2.5mg other days or as directed. tamsulosin ER (FLOMAX) 0.4 mg cp24 Take 2 capsules by mouth once daily at 5:30 senna-docusate (SENNA PLUS) 8.6-50 mg per tablet Take 1 tablet by mouth once daily. Ammonium,Pot.and Sodium Lactates (AMLACTIN) crea Apply 1 application to affected area once daily. COMPOUNDED PRESCRIPTION Front wheeled walked with seat attachmentDx (M15.9) Generalized osteoarthritis; (R53.1) Weakness, (R26.81) Gait instability geuqychsggEOWPM-geekxj-hjedwixqz (BMX 1:1:1) 1:1:1 liqd Gargle 5ml and swallow every 4 hours as needed. May use 20 minutes prior to eating COMPOUNDED PRESCRIPTION Home BP cuff, Dx: HTN labile REVIEW OF SYSTEMS: GENERAL: Negative for: Weight loss or gain, Fever or Chills, Weakness and Sleep difficulties. Physical Examination: BP 110/74 Pulse 72 Resp 14 Wt 204 lb (92.5kg) Extended Vitals not filed for this encounter. General appearance: Well appearing, alert, in no acute distress, well-hydrated, well nourished. Skin: Skin color, texture, turgor normal, no suspicious rashes or lesions Neck: Supple, no adenopathy; thyroid symmetric, normal size, no bruits Lungs: Lungs clear to auscultation. No wheezing, rhonchi, rales Heart: RRR without murmur, gallop, or rubs. Abdomen: Abdomen soft, non-tender. Bowel sounds normal. No masses, organomegaly Extremities: +bruit/thrill at leftt brachial fistula, no signs of infection, no skin discoloration, clubbing or cyanosis. Good capillary refill. Peripheral pulses: Normal Neuro: Gait normal. . Sensation grossly intact. Reviewed chart, outside records, tests I personally interviewed, confirmed and edited the above information if obtained by others. TESTING: Glucose (mg/dL) Date Value 02/25/2017 121 Potassium (mmol/L) Date Value 02/25/2017 3.4 Sodium (mmol/L) Date Value 02/25/2017 135 Chloride (mmol/L) Date Value 02/25/2017 93 CO2 (mmol/L) Date Value 02/25/2017 31 Creatinine (mg/dL) Date Value 02/25/2017 1.87 BUN (mg/dL) Date Value 02/25/2017 7 Anion Gap (mmol/L) Date Value 02/25/2017 11 Calcium (mg/dL) Date Value 02/25/2017 9.3 Glucose (mg/dL) Date Value 02/25/2017 121 Potassium (mmol/L) Date Value 02/25/2017 3.4 Sodium (mmol/L) Date Value 02/25/2017 135 Chloride (mmol/L) Date Value 02/25/2017 93 CO2 (mmol/L) Date Value 02/25/2017 31 Creatinine (mg/dL) Date Value 02/25/2017 1.87 BUN (mg/dL) Date Value 02/25/2017 7 Anion Gap (mmol/L) Date Value 02/25/2017 11 Calcium (mg/dL) Date Value 02/25/2017 9.3 Protein, Total (g/dL) Date Value 05/15/2017 5.9 Albumin (g/dL) Date Value 10/07/2016 2.8 Bilirubin, Total (mg/dL) Date Value 10/07/2016 0.4 Alkaline Phosphatase (U/L) Date Value 10/07/2016 91 AST (U/L) Date Value 10/07/2016 <5 ALT (U/L) Date Value 10/07/2016 <5 Hemoglobin (g/dL) Date Value 02/25/2017 11.1 Hematocrit (%) Date Value 02/25/2017 36.4 WBC (k/uL) Date Value 02/25/2017 5.19 Cholesterol, Total (mg/dL) Date Value 01/03/2016 212 HDL Cholesterol (mg/dL) Date Value 01/03/2016 34 LDL Cholesterol (mg/dL) Date Value 01/03/2016 136 Triglyceride (mg/dL) Date Value 01/03/2016 211 Hemoglobin A1C Date Value Ref Range Status 12/08/2017 4.9 4.3 - 5.6 % Final 08/20/2016 5.4 4.3 - 5.6 % Final 11/05/2015 5.9 (H) 4.3 - 5.6 % Final Comment: [place] [employer] guidelines indicate that patients with HgbA1c in the range 5.7-6.4% are at increased risk for development of diabetes, and intervention by lifestyle modification may be beneficial. HgbA1c greater or equal to 6.5% is considered diagnostic of diabetes. 10/27/2015 6.0 (H) 4.3 - 5.6 % Final Comment: [place] [employer] guidelines indicate that patients with HgbA1c in the range 5.7-6.4% are at increased risk for development of diabetes, and intervention by lifestyle modification may be beneficial. HgbA1c greater or equal to 6.5% is considered diagnostic of diabetes. 07/12/2015 6.1 (H) 4.0 - 6.0 % Final Comment: [place] [employer] guidelines indicate that patients with HgbA1c in the range 5.7-6.4% are at increased risk for development of diabetes, and intervention by lifestyle modification may be beneficial. HgbA1c greater or equal to 6.5% is considered diagnostic of diabetes. Ejection Fraction: No results found IMPRESSION: Mr. Olivas is a 77 year old man with persistent frequent urination, some urinary leakage After my examination and review of data, I make the following recommendations. PLAN AND RECOMMENDATIONS: 1. Frequent urination - ICD9: 788.41, ICD10: R35.0 chronic - Send urine for culture - US KIDNEY/BLADDER - URINALYSIS WITH MICROSCOPIC - URINE CULTURE - CONSULT TO UROLOGY Advised to go to ER if develops chest pain, shortness of breath, or severe worsening of symptoms. Discussed risks, benefits, alternatives, and potential side effects of medications. Mr. Olivas expressed understanding and agreed with the plan. VINAYAK Doran PROGRESS Observed: 01/07/2018 Status: COMPLETED Source: [place] 3:23 PM [facility] REPOSITORY HNO ID: [id number] Author: Mary Howard Service: (none) Author Type: Physician Type: Progress Notes Filed: 01/07/2018 9:34 PM Note Text: Subjective: Patient presents to clinic c/o painful toenails. They state that the nails are especially painful with shoe gear and pressure. Patient states that nails 1-5 b/l are painful. Patient states no change in medications or medical history since last visit. Objective: Patient presents to clinic ambulating in sneaker Vasc: DP and PT pulses are palpable bilateral. CFT is less than 5 seconds bilateral. Skin temperature is warm to cool proximal to distal bilateral. There is no edema or varicosities noted. Neuro: Protective sensation is intact to the foot and toes when tested with the 5.07 SWM bilateral. Vibratory sensation is decreased at the hallux IPJ bilateral. The hallux is downgoing bilateral. Derm: Nails 1-5 b/l are painful, discolored-yellow, thick, crumbly, dystrophic and with subungal debris. Skin is of normal turgor, texture and hair growth is present bilateral. There are no hyperkeratosis, ulcerations, scars, verruca or other lesions noted. Ortho: Muscle strength is 5/5 for all pedal groups tested. Ankle joint DF is full with the knee extended with no pain or crepitus noted. 1st MPJ ROM is full bilateral. Assessment: (B35.1) Onychomycosis (primary encounter diagnosis) (M79.675) Pain in toe of left foot (M79.674) Pain in toe of right foot Plan: Patient was seen and evaluated. Nails 1-5 bilateral were debrided in length and thickness. Patient is to RTC in 3-4 months. Mary Howard DPM OBSOLETE Observed: 12/10/2017 Status: COMPLETED Source: [place] 12:00 AM [facility] REPOSITORY Refill (INTMWS) ANSLEY OLIVAS ([id number]) 1940 M Date Time Provider Department 12/10/17 YESENIA CROCKER INTMWS During your visit today, we recorded the following information about you: Ayesha Medina Psr 12/10/2017 11:07 AM Signed Patient has been identified by name and date of : Yes Pending Prescriptions Disp Refills OXYCODONE 5 MG TABLET 45 tablet 0 Sig: Take 1 tablet by mouth every 8 hours as needed for Pain for up to 30 days. BORA Class: C-II ESCOBAR: No RX INSTRUCTIONS: Print and leave at the medical records front clerk. Call patient when complete. Aeysha Medina Psr Yesenia Crocker MD 12/10/2017 5:55 PM Signed Filled 11/13 so due 12/13 Patient's request for medication is as follows: Signed Prescriptions Disp Refills oxyCODONE IR (ROXICODONE) 5 mg immediate release tablet 45 tablet 0 Sig: Take 1 tablet by mouth every 8 hours as needed for Pain for up to 30 days.Earliest Fill Date: 12/13/17 BORA Class: C-II ESCOBAR: No Authorizing Provider: YESENIA CROCKER Prescription(s) printed as above. Please process accordingly. OARRS website checked and validated. All prescriptions have been APPROPRIATELY filled. No suspicious activity was identified.- 12/10/2017 by [facility] 12/11/2017 9:27 AM Signed The following prescription has been printed and is located at the front clerk for patient brain picker after 12:00 pm. Signed Prescriptions Disp Refills oxyCODONE IR (ROXICODONE) 5 mg immediate release tablet 45 tablet 0 Sig: Take 1 tablet by mouth every 8 hours as needed for Pain for up to 30 days.Earliest Fill Date: 12/13/17 BORA Class: C-II ESCOBAR: No Authorizing Provider: YESENIA CROCKER Allergies As of Date: 12/10/2017 Noted Allergy Reaction BETA BLOCKERS (BETA-BLOCKERS (BET*10/04/2010 14 - Other: See Comments Comments: Severe fatigue SULFA (SULFONAMIDE ANTIBIOTICS) 08/14/2005 4 - Hives Date Reviewed: 09/10/2017 Reviewed by: Frieda Elder RN - Fully Assessed Reason for Visit: Refill Request [94] Visit Diagnosis: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] Order(s):[START ON 12/13/2017] oxyCODONE IR (ROXICODONE) 5 mg immediate release tabletTake 1 tablet by mouth every 8 hours as needed for Pain for up to 30 days. Earliest Fill Date: 12/13/17Disp: 45 tabletRfl: 0 Prescriptions as of 12/10/2017 Sig: OXYCODONE 5 MG TABLET Take 1 tablet by mouth every * METOPROLOL TARTRATE 50 MG TAB* Take 1 tablet by mouth twice * SENNOSIDES-DOCUSATE SODIUM 8.* Take 1 tablet by mouth once d* DICYCLOMINE 10 MG CAPSULE Take 2 capsules by mouth thre* OMEPRAZOLE 20 MG CAPSULE,AMA* Take 1 capsule by mouth once * WARFARIN 2.5 MG TABLET 5mg Mon and Fri; and 2.5mg ot* TAMSULOSIN 0.4 MG CAPSULE Take 2 capsules by mouth once* AMMONIUM LACTATE-SODIUM LACTA* Apply 1 application to affect* COMPOUNDED PRESCRIPTION Front wheeled walked with sea* [id number]-[id number]-[id number]* Gargle 5ml and swallow every * * COMPOUNDED PRESCRIPTION Home BP cuff, Dx: HTN labile Problem List As Of Date 12/10/2017 Noted Resolved MORBID OBESITY [E66.01] Essential hypertension [I10] 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] INVALID FOR* HERPES ZOSTER NOS [B02.9] INVALID FOR* DYSMETABOLIC SYNDROME X [E88.81] ANEMIA NOS [D64.9] Mohs for BCC, left cheek 02-03-08 [173.8] INVALID FOR* ACTINIC KERATOSES (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 Complication of dialysis access insertion (HCC)*INVALID FOR* Acute deep vein thrombosis (DVT) of both upper *INVALID FOR* ESRD on hemodialysis (HCC) [N18.6, Z99.2] INVALID FOR* More... Weakness [R53.1] INVALID FOR* More... BPH with obstruction/lower urinary tract sympto*INVALID FOR* More... 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 Gait instability [R26.81] INVALID FOR* Prescriptions ordered this encounter Disp Refills Start End OXYCODONE 5 MG TABLET 45 t* 0 12/13/2017 01/12/2018 Class: Print RX Route: ORAL Sig: Take 1 tablet by mouth every 8 hours as needed for Pain for up to 30 days. Earliest Fill Date: 12/13/17 Medications Discontinued During This Encounter oxyCODONE IR (ROXICODONE) 5 mg immed* 45 t* 0 11/13/2017 12/10/2017 Class: Print RX Route: ORAL Sig: Take 1 tablet by mouth every 8 hours as needed for Pain for up to 30 days. Earliest Fill Date: 11/13/17 Disc: Reason for discontinue is not on file. Encounter Status:Closed by MARY PIERRE CMA on 12/11/17 ALLERGIES ALLERGIES DATE TYPE / CODE NAME / CODE REACTION SEVERITY SOURCE 11/01/2018 Drug Sulfa Hives [facility] ([facility] 754781(SNOM Antibiotics)/F0 Repository [address]) 98213108(RXNORM ) 02/23/2018 Drug Beta-Blockers Unknown Unknown [facility]/416 (Beta-[facility] 600167(SNOM c Repository ED CT) Bloc/H469800080 (RXNORM) 10/04/2010 Drug BETA-BLOCKERS OTHER: SEE C [facility] Class/10243 (BETA-ADRENERGI [place] [address](SNOMED C BLOCKING Repository CT) AGTS) 08/14/2005 Drug SULFA HIVES [facility] Class/56490 (SULFONAMIDE [place] [address](SNOMED ANTIBIOTICS) Repository CT) ENCOUNTERS ENCOUNTERS ADMIT/DISCHARGE ACCOUNT ADMITTING ENCOUNTER LOCATION SOURCE NUMBER CLASS 11/03/2018 [id number] [facility] ing:LABSPEC Repository 11/01/2018 [id number] Ambulatory BMSBuilding:B [facility] LEWIS.[facility] Repository 11/01/2018/11/01/20 [id number] Ambulatory [address] ing:CLSP Repository 11/01/2018/11/01/20 [id number] Ambulatory BMSBuilding:B [facility] MS.[facility] Repository 10/08/2018 [id number] [facility] ing:OLS.AVEB Repository 10/02/2018 [id number] [facility] ing:OLS.AVEB Repository 10/01/2018 [id number] [facility] ing:OLS.AVEB Repository 09/24/2018 [id number] [facility] ing:OLS.AVEB Repository 09/17/2018 [id number] [facility] ing:OLS.AVEB Repository 09/13/2018/09/16/20 [id number] [place], [place] Inpatient [address] ing:KZ1Okjx: Repository YF688Pbi: 1 09/13/2018 [id number] , Ambulatory BMSBuilding:[facility] MS.[facility] Repository 09/13/2018 [id number] , Ambulatory BMSBuilding:[facility] Repository 09/13/2018 [id number] , Ambulatory BMSBuilding:[facility] [place] [facility] Repository 09/13/2018 [id number] , Ambulatory BMSBuilding:B [place] Repository 09/12/2018 [id number] [place], Ambulatory BMSBuilding:B [place] MS[facility] Repository 07/15/2018/07/15/20 [id number] Ambulatory [address] Repository 07/15/2018/07/16/20 [id number] Ambulatory [address] Repository 07/06/2018/07/07/20 [id number] Ambulatory [address] Repository 07/01/2018/07/02/20 [id number] [facility], Inpatient [place] [facility] ing:PCURoom: Repository CEQ486Hkn: 1 07/01/2018 [id number] [place], Ambulatory BMSBuilding:B [facility] [place] MS.CF.[facility] Repository 07/01/2018 [id number] [facility], Ambulatory BMSBuilding:B [facility] MS.[facility] Repository 07/01/2018/07/02/20 [id number] Ambulatory BMSBuilding:W [place] 18 [facility] Repository 06/30/2018 [id number] [place], Ambulatory BMSBuilding:B [place] MS.[facility] Repository 06/30/2018 [id number] [place], Ambulatory BMSBuilding:B [place] MS.[facility] Repository 06/30/2018 [id number] [facility], Ambulatory BMSBuilding:B [facility] MS.CF.[facility] Repository 06/25/2018/06/26/20 [id number] Aleks Moore Inpatient [facility] ing:GS2Rakz: Repository [id number]: 1 06/10/2018/06/30/20 [id number] Ambulatory [address] Repository 06/06/2018/06/06/20 [id number] Emergency [facility] ing:ED Repository 05/25/2018/05/26/20 [id number] [facility], Ambulatory [place] [address] ing:PCURoom: Repository [id number]: 1 05/25/2018 [id number] [facility], Ambulatory BMSBuilding:B [place] MS.[facility] Repository 05/25/2018 [id number] [place], Ambulatory BMSBuilding:B [place] MS.[facility] Repository 05/25/2018/05/26/20 [id number] Ambulatory BMSBuilding:B [facility] 18 MS.CF.[facility] Repository 04/15/2018/04/16/20 [id number] Ambulatory [address] Repository 03/30/2018 [id number] Ambulatory [facility] ing:LABSPEC Repository 03/16/2018 [id number] Ambulatory [facility] ing:LAB.FUTUR Repository E 03/09/2018/03/23/20 [id number] Ambulatory [address] Repository 02/27/2018 [id number] Ambulatory BMSBuilding:B [place] MS.[facility] Repository 02/26/2018/02/27/20 [id number] Ambulatory [address] ing:SDCRoom: Repository AC08 02/23/2018/02/24/20 [id number] Ambulatory BMSBuilding:B [place] 18 MS.[facility] Repository 02/19/2018/02/23/20 [id number] Ambulatory [address] Repository 02/15/2018/02/16/20 [id number] Emergency [address] ing:ED Repository 01/21/2018/01/22/20 [id number] Ambulatory [address] Repository 01/21/2018/02/23/20 [id number] Ambulatory [address] Repository 01/14/2018/01/15/20 [id number] Ambulatory [address] Repository 01/14/2018/01/15/20 [id number] Ambulatory [address] Repository 01/12/2018/01/15/20 [id number] Ambulatory [address] Repository 01/07/2018/01/15/20 [id number] Ambulatory [address] Repository PAYERS PAYERS ENCOUNTER GUARANTOR PAYER SUBSCRIBER SOURCE 11/03/2018 ANSLEY [place] Primary NOT GIVENCHOCO [place] [id number] Insurance:SELF PAY [address] Number: Effective Repository [phone]: (330) Date:2018-11-03 [phone] (HP) 11/01/2018 ANSLEY R Primary ANSLEY R [place] [id number] Insurance:MEDICARE ELLIOTTDOB: [facility] MARYAM COUCH PART A [facility] [id number] Number: Repository [address]Etg: 330 [id number] [phone] () Date:2018-10-29 11/01/2018 Secondary ANSLEY R [place] Insurance:BANKERS LETYTTDOB: [facility] [id number] Hospital Number: Repository [id number] Date:[id number], [place] [address]QS: 11/01/2018 Tertiary NOT GIVENUNK [place] Insurance:SELF PAY [facility] Number: Effective Repository Date:2018-11-01 11/01/2018 ANSLEY R Primary ANSELY R [place] [id number] Insurance:MEDICARE [facility]OTTD[facility] [id number] Number: Repository [address]Ric: 330 [id number] [phone] () Date:2018-10-29 11/01/2018 Secondary ANSLEY R [place] [facility] LETYTTD[facility]: [facility] [id number] Hospital Number: Repository [id number] Date:[id number] [facility] [address], [place] [address]HD: 11/01/2018 Tertiary NOT GIVENUNK [place] Insurance:SELF PAY [facility] Number: Effective Repository Date:2018-10-29 11/01/2018 ANSLEY R Primary ANSLEY R [place] [id number] Insurance:MEDICARE [facility]LLIOTTDOB[facility] [id number] Number: Repository [address]Goq: 330 [id number] [phone] () Date:2018-10-29 11/01/2018 Secondary ANSLEY R [place] [facility] ALINAIOTTDOB: [facility] [id number] Hospital Number: Repository [id number] Date:[id number]LQGYTFD, [place] [address]MO: 11/01/2018 Tertiary NOT GIVENUNK [place] Insurance:SELF PAY [facility] Number: Effective Repository Date:2018-10-29 10/08/2018 ANSLEY R Primary NOT GIVENUNK [place] [id number] Insurance:SELF PAY [address], [place] Number: Effective Repository [phone]: (330) Date:2018-10-087891 () 10/02/2018 ANSLEY R Primary NOT GIVENUNK [place] [id number] Insurance:SELF PAY [address], [place] Number: Effective Repository [id number]: (330) Date:2018-10-021902 () 10/01/2018 ANSLEY R Primary NOT GIVENUNK [place] [id number] Insurance:SELF PAY [address], [place] Number: Effective Repository [phone]: (330) Date:2018-10-016453 () 09/24/2018 ANSLEY R Primary NOT GIVENUNK [place] [id number] Insurance:SELF PAY [address], [place] Number: Effective Repository [phone]: (330) Date:2018-09-241501 () 09/17/2018 ANSLEY R Primary NOT GIVENUNK [place] [id number] Insurance:SELF PAY [address], [place] Number: Effective Repository [id number]: (330) Date:2018-09-170671 () 09/13/2018 ANSLEY R Primary ANSLEY R [place] [id number] Insurance:MEDICARE ELLIOTTDOB: [facility] PART A [facility] [id number], [place] Number: Repository [phone]: (330) [id number] [phone] () Date:2018-09-12 09/13/2018 Secondary ANSLEY R [place] Insurance:BANKERS ELLIOTTDOB: [facility] [id number] Hospital Number: Repository [id number] Date:[id number], [place] [address]DG: 09/13/2018 Tertiary NOT GIVENUNK [place] Insurance:SELF PAY [facility] Number: Effective Repository Date:2018-09-12 09/13/2018 ANSLEY R Primary NASLEY R [place] [id number] Insurance:MEDICARE ELLIOTTDOB[facility] [id number] [place] Number: Repository [address]Urc: 330 [id number] [phone] () Date:2018-09-12 09/13/2018 Secondary ANSLEY R [place] Insurance:BANKERS ELLIOTTDOB: [facility] [id number] Hospital Number: Repository [id number] Date:5480-85-36[address], [place] [address]VY: 09/13/2018 Tertiary NOT GIVENUNK [place] Insurance:SELF PAY [facility] Hospital Number: Effective Repository Date:2018-09-13 09/13/2018 ANSLEY R Primary ANSLEY R [place] [id number] Insurance:MEDICARE ELLIOTTDOB: [facility] MARYAM COUCH [facility] [id number] [place] Number: Repository [id number]: 330 [id number] [phone] () Date:2018-09-12 09/13/2018 Secondary ANSLEY R [place] Insurance:BANKERS ELLIOTTDOB: [facility] [id number] Hospital Number: Repository [id number] Date:2708-68-58IR [address]VCZMPFZ, [place] [address]VI: 09/13/2018 Tertiary NOT GIVENUNK [place] Insurance:SELF PAY [facility] Number: Effective Repository Date:2018-09-13 09/13/2018 ANSLEY R Primary ANSLEY R [place] [id number] Insurance:MEDICARE ELLIOTTDOB: [facility] KHOA [facility] [id number], [place] Number: Repository [id number]: 330 [id number] [phone] () Date:2018-09-12 09/13/2018 Secondary ANSLEY R [place] Insurance:BANKERS LETYTTDOB: [facility] [id number] Hospital Number: Repository [id number] Date:8175-68-16AJ [address] [address]NF: 09/13/2018 Tertiary NOT GIVENUNK [place] Insurance:SELF PAY [facility] Number[facility] Effective Repository Date:2018-09-13 09/13/2018 ANSLEY R Primary ANSLEY R [place] [id number] Insurance:MEDICARE ELLIOTTDOB: [facility] MARYAM COUCH [facility] [id number] Number: Repository [address]Gjr: 330 [id number] [phone] () Date:2018-09-12 09/13/2018 Secondary ANSLEY R [place] Insurance:BANKALEJA OLIVASDOB: [facility] [id number] Hospital Number: Repository [id number] Date:1728-61-96FF [address]ANJVIUI [place] [address]NL: 09/13/2018 Tertiary NOT GIVENUNK [place] Insurance:SELF PAY [facility] Number: Effective Repository Date:2018-09-13 09/12/2018 ANSLEY R Primary ANSLEY R [place] [id number] Insurance:MEDICARE ELLIOTTDOB: [facility] KHOA [facility] [id number] [place] Number: Repository [address]Var: 330 [id number] [phone] () Date:2018-09-12 09/12/2018 Secondary ANSLEY R [place] Insurance:BANKERS LETYTTDOB: [facility] [id number] Hospital Number: Repository [id number] Date:6288-52-55EU [address]VGMHEUC, [place] [address]QJ: 09/12/2018 Tertiary NOT GIVENUNK [place] Insurance:SELF PAY [facility] Number: Effective Repository Date:2018-09-12 07/01/2018 ANSLEY R Primary ANSLEY R [place] [id number] Insurance:MEDICARE ELLIOTTDOB: [facility] MARYAM COUCH [facility] [id number] [place] Number: Repository [id number]: 330 [id number] [phone] (HP) Date:2018-06-30 07/01/2018 Secondary ANSLEY R [place] Insurance:BANKERS ALINAIOTTDOB: [facility] [id number] Hospital Number: Repository [id number] Date:7650-34-89HF [facility] [address]24036CJADCDK, [place] [address]ZR: 07/01/2018 Tertiary NOT GIVENUNK [place] Insurance:SELF PAY [facility] Number: Effective Repository Date:2018-06-30 07/01/2018 ANSLEY R Primary ANSLEY R [place] [id number] Insurance:MEDICARE ELLIOTTDOB: [facility] MARYAM CUOCH [facility] [id number], [place] Number: Repository [id number]: 330 [id number] [phone] () Date:2018-06-30 07/01/2018 Secondary ANSLEY R [place] [facility] LETYTTDOB: [facility] [id number] Hospital Number: Repository [id number] Date:4649-18-69YT [address]YPCPXBG, [place] [address]DM: 07/01/2018 Tertiary NOT GIVENUNK [place] Insurance:SELF PAY [facility] Number: Effective Repository Date:2018-07-01 07/01/2018 ANSLEY R Primary ANSLEY R [place] [id number] Insurance:MEDICARE ELLIOTTDOB: [facility] MARYAM COUCH [facility] [id number], [place] Number: Repository [address]Myx: 330 [id number] [phone] (HP) Date:2018-06-30 07/01/2018 Secondary ANSLEY R [place] Insurance:[facility] HOSPITALIOTTDOB: [address]03-10UNK Hospital Number: Repository [id number] Date:1359-96-29EZ [address]WHIDDWF, [place] [address]CZ: 07/01/2018 Tertiary NOT GIVENUNK [place] Insurance:SELF PAY [facility] Number: Effective Repository Date:2018-07-01 07/01/2018 ANSLEY R Primary ANSLEY R [place] [id number] Insurance:MEDICARE ELLIOTTDOB: [facility] DRLOT [facility] [id number] [place] Number: Repository [address]Nzo: 330 [id number] [phone] () Date:2018-06-30 07/01/2018 Secondary ANSLEY R [place] Insurance:BANKERS [facility] SERVICESTTDOB: [facility] [id number] Hospital Number: Repository [id number] Date:4289-90-57EX [address]MHUDCDV, [place] [address]YJ: 07/01/2018 Tertiary NOT GIVENUNK [place] Insurance:SELF PAY [facility] Number: Effective Repository Date:2018-07-01 06/30/2018 ANSLEY R Primary ANSLEY R [place] [id number] Insurance:MEDICARE ELLIOTTDOB: [facility] [id number] [place] Number: Repository [address]Cfb: 330 [id number] [phone] () Date:2018-06-30 06/30/2018 Secondary ANSLEY R [place] Insurance:BANKERS LETYTTDOB: [facility] [id number] Hospital Number: Repository [id number] Date:1287-27-12CT [address]QHSMALT, [place] [address]WR: 06/30/2018 Tertiary NOT GIVENUNK [place] Insurance:SELF PAY [facility] Number: Effective Repository Date:2018-06-30 06/30/2018 ANSLEY R Primary ANSLEY R [place] [id number] Insurance:MEDICARE ELLIOTTDOB: [facility] DRLOT PART [facility] [id number], [place] Number: Repository [address]Wzz: 330 [id number] [phone] () Date:2018-06-30 06/30/2018 Secondary ANSLEY R [place] Insurance:BANKERS LETYTTDOB: [facility] [id number] Hospital Number: Repository [id number] Date:9144-72-66UJ [address]GXLLNSC [place] [address]EW: 06/30/2018 Tertiary NOT GIVENUNK [place] Insurance:SELF PAY [facility] Number: Effective Repository Date:2018-06-30 06/30/2018 ANSLEY R Primary ANSLEY R [place] [id number] Insurance:MEDICARE ELLIOTTDOB: [facility] PART [facility] [id number] Number: Repository [address]Osx: 330 [id number] [phone] () Date:2018-06-30 06/30/2018 Secondary ANSLEY R [place] Insurance:BANKHARR[facility] MEMORIAL HOSPITALCHAYB: [facility] [id number] Hospital Number: Repository [id number] Date:6322-91-93HQ [address], [place] [address]ZJ: 06/30/2018 Tertiary NOT GIVENUNK [place] Insurance:SELF PAY [facility] Number: Effective Repository Date:2018-06-30 06/25/2018 ANSLEY R Primary ANSLEY R [place] [id number] Insurance:MEDICARE ELLIOTTDOB: [facility] [id number] Number: Repository [address]Umf: 330 [id number] [phone] () Date:2018-06-15 06/25/2018 Secondary ANSLEY R [place] Insurance:[facility] MEDICAL CENTERTTB: [facility] [id number] Hospital Number: Repository [id number] Date:5799-94-67FJ [address]TE[place], [place] [address]KF: 06/25/2018 Tertiary NOT GIVENUNK [place] Insurance:SELF PAY [facility] Number: Effective Repository Date:2018-06-15 06/06/2018 ANSLEY R Primary ANSLEY R [place] [id number] Insurance:MEDICARE ELLIOTTDOB: [facility]A [facility] [id number] Number: Repository [address]Jip: 330 [id number] [phone] () Date:2018-06-06 06/06/2018 Secondary ANSLEY R [place] Insurance:BANKERS ELLIOTTDOB: [facility] [id number] Hospital Number: Repository [id number] Date:6075-88-26EC [address]PWBQHFO, [place] [address]IU: 06/06/2018 Tertiary NOT GIVENUNK [place] Insurance:SELF PAY [facility] Number: Effective Repository Date:2018-06-06 05/25/2018 ANSLEY R Primary ANSLEY R [place] [id number] Insurance:MEDICARE ELLIOTTDOB: [facility] KHOA PART [facility] [id number] Number: Repository [id number]: 330 [id number] [phone] () Date:2018-05-25 05/25/2018 Secondary ANSLEY R [place] [facility] ELLIOTTDOB: [facility] [id number] Hospital Number: Repository [id number] Date:6070-00-78OG [address]LLKEWVN, [place] [address]QP: 05/25/2018 Tertiary NOT GIVENUNK [place] Insurance:SELF PAY [facility] Number: Effective Repository Date:2018-05-25 05/25/2018 ANSLEY R Primary ANSLEY R [place] [id number] Insurance:MEDICARE ELLIOTTDOB: [facility] KHOA PART [facility] [id number] Number: Repository [address]Yaq: 330 [id number] [phone] () Date:2018-05-25 05/25/2018 Secondary ANSLEY R [place] Insurance:BANKERS ELLIOTTDOB: [facility] [id number] Hospital Number: Repository [id number] Date:6998-82-38UF [address]VDLPJXO, [place] [address]AW: 05/25/2018 Tertiary NOT GIVENUNK [place] Insurance:SELF PAY [facility] Number: Effective Repository Date:2018-05-25 05/25/2018 ANSLEY R Primary ANSLEY R [place] [id number] Insurance:MEDICARE ELLIOTTDOB: [facility] MARYAM DRLOT [facility] [id number] Number: Repository [id number]: 330 [id number] [phone] () Date:2018-05-25 05/25/2018 Secondary ANSLEY R [place] Insurance:BANKERS ELLIOTTDOB: [facility] [id number] Hospital Number: Repository [id number] Date:9199-05-10WG [address]WEEUSHG, [place] [address]BQ: 05/25/2018 Tertiary NOT GIVENUNK [place] Insurance:SELF PAY [facility] Number: Effective Repository Date:2018-05-25 05/25/2018 ANSLEY R Primary ANSLEY R [place] [id number] Insurance:MEDICARE ELLIOTTDOB: [facility] MARYAM DRLOT [facility] [id number] [place] Number: Repository [address]Qrp: 330 [id number] [phone] () Date:2018-05-25 05/25/2018 Secondary ANSLEY R [place] Insurance:BANKERS ELLIOTTDOB: [facility] [id number] Hospital Number: Repository [id number] Date:7554-73-73FO [address]LDKIACS, [place] [address]BD: 05/25/2018 Tertiary NOT GIVENUNK [place] Insurance:SELF PAY [facility] Number: Effective Repository Date:2018-05-25 03/30/2018 ANSLEY R Primary ANSLEY R [place] [id number] Insurance:MEDICARE ELLIOTTDOB: [facility] MARYAM DRLOT [facility] [id number] [place] Number: Repository [id number]: 330 [id number] [phone] () Date:2018-03-30 03/30/2018 Secondary ANSLEY R [place] Insurance:BANKERS ELLIOTTDOB: [facility] [id number] Hospital Number: Repository [id number] Date:7568-01-32YZ [address]NGIAMHB, [place] [address]UZ: 03/30/2018 Tertiary NOT GIVENUNK [place] Insurance:SELF PAY [facility] Number: Effective Repository Date:2018-03-30 03/16/2018 ANSLEY R Primary ANSLEY R [place] [id number] Insurance:MEDICARE ELLIOTTDOB: [facility] [id number] Number: Repository [id number]: 330 [id number] [phone] () Date:2018-03-15 03/16/2018 Secondary ANSLEY R [place] Insurance:BANKERS [facility]BLINIOTTDOB: [facility] [id number] Hospital Number: Repository [id number] Date:7462-71-32TS [address]MYDTVRZ, [place] [address]XP: 03/16/2018 Tertiary NOT GIVENUNK [place] Insurance:SELF PAY [facility] Number: Effective Repository Date:2018-03-15 02/27/2018 Ansley R Primary Ansley R [place] [id number] Insurance:MEDICARE ElliottDOB: [facility] [id number] Number: Repository [address]Kzf: 330 [id number] [phone] () Date:2018-02-22 02/27/2018 Secondary Ansley R [place] [facility] ElliottDOB: [facility] [id number] Hospital Number: Repository [id number] Date:5992-23-06IQ [address]QIQWXTB [place] [address]PH: 02/27/2018 Tertiary NOT GIVENUNK [place] Insurance:SELF PAY [facility] Number: Effective Repository Date:2018-02-22 02/26/2018 ANSLEY R Primary ANSLEY R [place] [id number] Insurance:MEDICARE ELLIOTTDOB: [facility] MARYAM DRLOT [facility] [id number] [place] Number: Repository [id number]: 330 [id number] [phone] () Date:2018-02-04 02/26/2018 Secondary ANSLEY R [place] [facility] ELLIOTTDOB: [facility] [id number] Hospital Number: Repository [id number] Date:3654-15-88XH [address]GRXFCKK, [place] [address]SH: 02/26/2018 Tertiary NOT GIVENUNK [place] Insurance:SELF PAY [facility] Number: Effective Repository Date:2018-02-04 02/23/2018 ANSLEY R Primary ANSLEY R [place] [id number] Insurance:MEDICARE ELLIOTTDOB: [facility] MARYAM COUCH [facility] [id number] [place] Number: Repository [id number]: 330 [id number] [phone] () Date:2018-02-22 02/23/2018 Secondary ANSLEY R [place] Insurance:[facility] ELLIOTTDOB: [facility] [id number] Hospital Number: Repository [id number] Date:2990-86-52MT [address]IKCOYDY, [place] [address]DQ: 02/23/2018 Tertiary NOT GIVENUNK [place] Insurance:SELF PAY [facility] Number: Effective Repository Date:2018-02-23 02/15/2018 Ansley R Primary Ansley R [place] [id number] Insurance:MEDICARE ElliottDOB: [facility] Maryam DrLot PART A [facility] [id number] [place] Number: Repository [address]Ocv: [id number] [phone] Date:2018-02-15 () 02/15/2018 Secondary Ansley R [place] Insurance:BANKERS ElliottDOB: [facility] [id number] Hospital Number: Repository [id number] Date:3655-32-83UR [address]KJADOVK, [place] [address]NJ: 02/15/2018 Tertiary NOT GIVENCHOCO [place] Insurance:SELF PAY [facility] Number: Effective Repository Date:2018-02-15
== END 2018-11-01 14:00 | disposition home or self-care (01) ==
PROVIDERS: Family Provider Internal Medicine; PCP Internal Medicine; Referring Provider Surgery; Visit Provider Surgery
DX: T82.898A Other specified complication of vascular prosthetic devices, implants and grafts, initial encounter (principal); I12.0 Hypertensive chronic kidney disease with stage 5 chronic kidney disease or end stage renal disease; N18.6 End stage renal disease; Z99.2 Dependence on renal dialysis; N40.0 Benign prostatic hyperplasia without lower urinary tract symptoms; E66.01 Morbid (severe) obesity due to excess calories; Z86.718 Personal history of other venous thrombosis and embolism; Z87.891 Personal history of nicotine dependence; Z79.891 Long term (current) use of opiate analgesic; Z79.899 Other long term (current) drug therapy
CPT/HCPCS: 36415; 36902; 36907; 76937; 80048; 85027; Q9967; C1725; C1769

== ENCOUNTER 2019-01-24 02:01 | Inpatient (IN) | payer MEDICARE, OTHER, SELFPAY ==
[2019-01-24] VITALS (11 sets, daily range): BP systolic 108–171; BP diastolic 50–85; PULSE 58–71; RESP 18–20; TEMP 36.4–37.1; O2SAT 92–98; BMI 35.9; BMI 35.0; BMI 35.1
--- NOTE | 2019-01-24 03:19 | CT_ITS ---
STUDY: CT BRAIN WITHOUT CONTRAST REASON FOR EXAM: Male, 79 years old. Fall. Generalized weakness RADIATION DOSAGE (If Supplied By Facility): CTDIvol = ( 44.99 ) mGy, DLP = ( 796.11 ) mGycm TECHNIQUE: Transaxial CT imaging of the brain was performed without administration of intravenous contrast material. Individualized dose optimization techniques were used for this CT. COMPARISON: None. FINDINGS: Normal soft tissue structures. Normal calvarium. There is mild cerebral atrophy with widening of the extra-axial spaces and ventricular dilatation. Normal white matter tracts of the cerebral hemispheres. Normal basal ganglia and thalami. Normal brainstem. Normal cerebellum. There is no intracranial hemorrhage. There are no findings of an acute ischemic infarction. Normal visualized paranasal sinuses. CT/Brain/Head without Contrast IMPRESSION: Chronic involutional changes of the brain. Electronically Signed: Tiburcio Power, at 3:52 EDT Tel , Service support ,
--- NOTE | 2019-01-24 03:19 | EKG12_ITS ---
Test Reason : WEAKNESS Blood Pressure : / mmHG Vent. Rate : 058 BPM Atrial Rate : 058 BPM P-R Int : 160 ms QRS Dur : 082 ms QT Int : 428 ms P-R-T Axes : 011 -14 012 degrees QTc Int : 420 ms Sinus bradycardia Possible Anterior infarct , age undetermined Abnormal ECG Confirmed by LARRY PUCKETT, RAYRAY ([id number]), brands editor VICKY ARCHER ([id number]) on 01/28/2019 9:07:29 AM Referred By: NAOMI Confirmed By:RAYRAY JUAREZ MD
--- NOTE | 2019-01-24 03:19 | RAD_ITS ---
STUDY: X-RAY CHEST REASON FOR EXAM: Male, 79 years old. Frequent falls. Generalized weakness TECHNIQUE: Single AP portable view of the chest. COMPARISON: None. FINDINGS: The subsegmental atelectases are noted in the right lung base. There is no demonstrated pleural abnormality. Normal size heart. Normal mediastinum and marcia. Normal visualized pulmonary arteries. Normal visualized aortic arch and descending thoracic aorta. Normal visualized thoracic spine. There is degenerative osteoarthritis of the bilateral shoulders. There is no demonstrated abnormality of the visualized soft tissue structures of the upper abdomen. RAD/Chest 1 View (Portable) IMPRESSION: Degenerative changes, as described above. No demonstrated acute cardiopulmonary process. Electronically Signed: Tiburcio Power, at 3:56 EDT Tel , Service support ,
--- NOTE | 2019-01-24 03:23 | ED.VISSUMM ---
- ER Visit Summary Date of Service: 01/24/19 Chief Complaint: Generalized weakness History of Present Illness: The patient is a 79 M who presents with general weakness that has been getting worse over the past 1-1/2 weeks. Patient fell tonight. states that his legs just gave out and he fell slowly. denies any head injury or loss of consciousness. states the weakness has been getting progressively worse. states patient has been having some shortness of breath and a cough. states patient has been having some vomiting with his cough. Patient states he has had some pain in his back. Patient admits to subjective chills. Patient has a history of end-stage renal disease and skin cancer. Physical Examination: Vital signs are stable. Patient is afebrile. Patient is in no acute distress. Oral mucosa is pink and moist. Neck is supple. Trachea is midline. There is no JVD noted. Heart was regular rate and rhythm. Lungs are clear and equal bilaterally. Abdomen is soft. Bowel sounds are normal. There is no tenderness. Cranial nerves II through XII are intact. There are no focal motor or sensory deficits noted. The remaining physical exam is within normal limits. Test Results: CBC showed a mild anemia with a hemoglobin of 11.3 and hematocrit 35.2. Basic metabolic profile showed an elevated BUN of 29 and creatinine of 5.10. These levels are chronic for the patient. Calcium was elevated at 13.2. Patient is unable to produce urine here in the emergency department. EKG showed normal sinus rhythm with a rate of 58. There are no acute ST or T wave changes. This is unchanged compared to previous EKG dated 09/12/2018. Portable chest x-ray shows chronic changes but no acute infiltrate. CT scan of the brain was obtained. There are no acute intracranial abnormalities. Emergency Department Course and Treatment: Patient was given a 500 cc bolus of normal saline. Patient is scheduled for dialysis on Wednesdays and Fridays. Case was discussed with the hospitalist. He will be in to evaluate the patient. Patient will be admitted to the Medr unit with telemetry. Patient and family understood and were agreeable with the plan. All questions were answered. Disposition: Admit to hospital Impression: 1. Hypercalcemia 2. Generalized weakness This note was generated with Giftlyation software. It may contain incorrect words, spelling, and punctuation that were not noted in review of the chart prior to signing ED Disposition - Plan for ED Patient: Disposition: Acute Care Hospital [facility] Diagnosis: Generalized weakness, Hypercalcemia, ESRD (end stage renal disease) Referrals: Dona Santiago MD [Primary Care Provider] -
[2019-01-24 04:12] LABS: International Normalized Ratio 1.1; Prothrombin Time (Protime)PT. 14.2 SECONDS (11.7-14.9)
[2019-01-24 04:14] LABS: Absolute Neutrophil Count 2.5 X10^3/uL (2.0-7.7); Basophil# 0.02 X10^3/uL; Basophil% 0.4 % (0-1); Eosinophil# 0.12 X10^3/uL; Eosinophils% 2.7 % (0-5); Hematocrit 35.2 % (40-54); Hemoglobin 11.3 g/dl (13.0-16.5); Lymphocyte % 28.8 % (19-41); Mean Corp Hgb Conc 32.1 g/gl (32-36); Mean Corpuscular Hgb 31.3 pg (27.0-32.0); Mean Corpuscular Volume 97.5 fL (80-94); Mean Platelet Vol. 9.3 fl (6.2-12.0); Monocyte# 0.53 X10^3/uL; Monocyte% 11.7 % (0-10); Neutrophil # 2.54 X10^3/uL (2.7-7.7); Neutrophil % 56.2 % (47-70); POSITIVE COUNT NO; POSITIVE DIFFERENTIAL NO; POSITIVE MORPHOLOGY NO; Platelet Count 121 K/mm3 (150-450); RBC Distribution Width SD 57.1 fl (35.1-43.9); Red Blood Count 3.61 M/mm3 (4.6-6.2); White Blood Count 4.5 K/mm3 (4.4-11.0)
[2019-01-24 04:22] LABS: ALB/GLOB Ratio 0.5 RATIO (0.9-2.4); AST(SGOT) 28 U/L (15-37); Alanine Aminotransfer ALT/SGPT 31 U/L (16-61); Albumin, Serum 2.5 g/dL (3.2-5.0); Alkaline Phosphatase 107 U/L (45-117); Anion Gap 11 (5-15); BUN 29 mg/dL (7-18); BUN/Creat Ratio 5.7 RATIO (10-20); Calcium,Total 13.2 mg/dL (8.5-10.1); Chloride 101 mmol/L (98-107); EST Glomerular Filtration Rate 12 mL/min (>60); Est Glom Filt Rate - Afr Amer 14 mL/min (>60); Globulin 5.1 g/dL (2.2-4.2); Glucose 115 mg/dL (74-106); Potassium 4.1 mmol/L (3.5-5.1); Protein, Total 7.6 g/dL (6.4-8.2); Sodium Level 138 mmol/L (136-145)
--- NOTE | 2019-01-24 04:22 | ED.RN ---
CA OF 13.2 REPORTED TO
--- NOTE | 2019-01-24 04:39 | HP.PCM_ITS ---
Problem List (1) Hypercalcemia Status: Acute (2) Generalized weakness Status: Acute (3) Recurrent falls Status: Chronic History of Present Illness Date of Admission: 01/24/19 Chief Complaint: Fall The patient is a 79 year old M with a significant history of end-stage renal disease (dialysis Thursday, Wednesdays and Fridays); melanoma; and hypertension who presented to the emergency department because of a fall. Patient fell. Paramedics were called and patient was brought to the emergency department the same day. Patient fell because his legs gave up. For about 1 and a 1/2 weeks patient has had leg weakness and he has been wobbly on his feet. Also his reports of back pain that has re-occurred in the last week requiring patient to resume taking his previously ordered oxycodone which he had stopped taken. Further his reports that patient has had regurgitation with food. Regurgitation with food has been a problem of the past but within the last week and a half this has also re-ocurred for which reason her has began giving patient Medykkcvzxqaidm-Uqhmnw-bkhitqmhx combo that he use to take previously At the emergency department his calcium was elevated at 13.2 for which reason he received normal saline 500 MLS bolus. 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) Morbid obesity (Chronic) E66.01 Benign prostatic hypertrophy (Chronic) N40.0 Hypertension (Chronic) I10 Nephrotic syndrome (Chronic) N04.9 Allergies Sulfa (Sulfonamide Antibiotics) Allergy (Severe, Verified 01/24/19 02:05) Hives Home Medications: Ambulatory Orders Medication Instructions Recorded Sennosides/Docusate Sodium 1 ea PO PRN PRN 08/07/16 [Docusate Sodium-Senna Tablet] Tamsulosin HCl [Flomax] 0.4 mg PO BID 10/23/16 Metoprolol Tartrate [Lopressor 50 mg PO BID tab 11/03/16 (beta keila)] Midodrine HCl [Proamatine] 10 mg PO TID 06/17/18 Sevelamer HCl [Renagel] 800 mg PO TIDCM 06/17/18 Nepro Liquid [Nepro Carb Steady] 120 ml PO BID 06/30/18 Ferrous Sulfate 325 mg PO BIDCM #60 tab 07/02/18 Pantoprazole Sodium [Protonix] 40 mg PO BID #60 tab 07/02/18 Acetaminophen [Tylenol Tablet] 650 mg PO Q6H PRN PRN tab 09/16/18 Menthol/Lanolin/Calamine/Znox 1 applic TOPICAL 4X/DAY tube 09/16/18 [Calmoseptine Ointment] Oxycodone [Oxyir] 5 mg PO Q8H PRN PRN #9 tab 09/16/18 Bmx Liquid 5 ml PO Q4H PRN PRN 01/24/19 Ondansetron [Zofran Odt] 4 mg PO Q6H PRN PRN 01/24/19 Surgical History: Surgical History (Last Reviewed 01/24/19 @ 05:59 by Al Gatica MD) 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 Melanoma resection. Lives: Spouse/ Significant Other Smoking Status: Former smoker Alcohol: None - *Family History Maternal History Items: - - Unknown Paternal History Items: Heart Disease, - Review of Systems Constitutional: Denies: Chills, Fever, Weight Change HEENT: Denies: Head Aches, Sinus Congestion, Sinus Drainage Cardiovascular: Denies: Chest Pain, Palpitations Respiratory: Denies: Cough, Shortness of breath at rest, Sputum production Gastrointestinal: Denies: Abdominal Pain, Nausea, Vomiting Genitourinary: Denies: Dysuria Musculoskeletal: Denies: Joint Pain, Joint Tenderness Skin: Denies: Rash, Wounds Neurological: Denies: Numbness, Tingling, Focal weakness Psychiatric: Denies: Anxiety, Depression, Homicidal Ideations, Suicidal Ideations Hematologic/ Lymphatic: Denies: Easy Bruising, Easy Bleeding VTE Information - Inpt Only VTE Present on Admission: No VTE Mechan Device Prophylaxis: None VTE Pharm Prophylaxis ordered?: Yes Patient Problems: Active and Suspected Problems (Last Reviewed 01/24/19 @ 05:59 by Al Gatica MD) Hypercalcemia (Acute) Generalized weakness (Acute) - Physical Exam General: Alert, Cooperative, - - Patient is oriented to self and place. He is not oriented to date. HEENT: Atraumatic, EOMI, - - Dark brown lesion on mid scalp Neck: Supple, Trachea Midline Lungs: Clear to auscultation, Normal air movement Cardiovascular: Regular rate, No murmurs Abdomen: Bowel Sounds Present, Soft, Non Tender Extremities: No edema, Capillary Refill Less than 3 Seconds Skin: No rashes, No breakdown Musculoskeletal: No Tenderness to Palpation of Joints or Extremities Neurological: Neuro grossly intact Psych/Mental Status: Normal Affect, Appropriate Vital Signs Temp Pulse Resp BP Pulse Ox 98.8 F 58 L 18 127/62 H 96 01/24/19 02:02 01/24/19 02:57 01/24/19 02:57 01/24/19 02:57 01/24/19 02:57 Oxygen Flow Rate (L/min) 2 Oxygen Delivery Method Room Air Weight: 91.9 kg Body Mass Index (BMI) 35.9 Finger Stick Blood Glucose 116 Laboratory Tests Past 24 Hrs 01/24/19 01/24/19 01/24/19 02:24 02:24 02:24 WBC 4.5 RBC 3.61 L Hgb 11.3 L Hct 35.2 L MCV 97.5 H MCH 31.3 MCHC 32.1 RDW 16.0 H RDW Differential 57.1 H Plt Count 121 L MPV 9.3 Immature Gran % (Auto) 0.200 Neut % (Auto) 56.2 Lymph % (Auto) 28.8 Lamoure % (Auto) 11.7 H Eos % (Auto) 2.7 Baso % (Auto) 0.4 Absolute Neuts (auto) 2.5 Absolute Lymphs (auto) 1.30 Total Counted Not Reportable PT 14.2 INR 1.1 APTT 28.0 Sodium 138 Potassium 4.1 Chloride 101 Carbon Dioxide 26.0 Anion Gap 11 BUN 29 H Creatinine 5.10 H Estim Creat Clear Calc 9.30 Est GFR (MDRD) Af Amer 14 L Est GFR (MDRD) Non-Af 12 L BUN/Creatinine Ratio 5.7 L Glucose 115 H Calcium 13.2 H* Total Bilirubin 0.50 AST 28 ALT 31 Alkaline Phosphatase 107 Total Protein 7.6 Albumin 2.5 L Globulin 5.1 H Albumin/Globulin Ratio 0.5 L Assessment/Plan All Active Problems (Last Reviewed 01/24/19 @ 05:59 by Al Gatica MD) Problem with dialysis access (Acute) Hypercalcemia (Acute) SIRS (systemic inflammatory response syndrome) (Resolved) Acute viral bronchitis (Acute) Generalized weakness (Acute) Generalized weakness (Acute) Transient expressive aphasia (Resolved) Near syncope (Resolved) Hypotension (Resolved) The patient is a 79 year old M with a significant history of end-stage renal disease (dialysis Thursday, Wednesdays and Fridays); melanoma; and hypertension who presented to the emergency department because of a fall attributed to bilateral leg weakness with his leg giving up; and also with severely elevated calcium on admission. Generalized weakness Differential diagnosis include debility; hypercalcemia or other His reported previously patient has been to the rehab and he comes back stronger. PT and OT to work the patient and make recommendations. We will check vitamin B12 level. Urinalysis and urine culture ordered. Of note patient is a dialysis patient who also makes some urine. Hypercalcemia Different diagnosis: malignancy including multiple myeloma ; tertiary hyperparathyroidism from end-stage kidney disease; or other. Patient received normal saline bolus at emergency department. Patient is due for dialysis today. Will consult vice president of recruiting. Hopefully with dialysis his calcium level will come down. His reports that patient vice president of recruiting is Dr. Cabrera who is aware that patient has hypercalcemia for which reason patient was referred to the Dr. Pena, oncologist. Per , outpatient workup has been done at Dr. Pena's office. Order to obtain records from the Dr. Pena's office. Consider discussing with Dr. Pena, oncologist ESRD On dialysis M,W,F. Nephrology consult. Follows up with Dr. Cabrera, vice president of recruiting Renal diet Sevelamer continued On Midodrine at home. Midodrine re-ordered but with parameter. Melanoma Reportedly patient had melanoma removed from his back. And he has recurring melanoma of the scalp. Patient sees Dr. Pena. Request records as above. Hypertension On presentation his blood pressure was not within goal. Systolic blood pressure on the monitor was in the 170s Metoprolol continued. Patient is on midodrine on dialysis days. Will place parameters on midodrine. Trend blood pressure and adjust blood pressure medication Odynophagia/dysphagia Speech consult. Diphenhydramine?Maalox-Lidocaine continued. DVT Prophylaxis Subcutaneous heparin. Code Visit Inpatient E&M: 15625 Init Hosp L3
[2019-01-24] MEDS: Ondansetron ODT 4 MG Tablet PO (07:33)
[2019-01-24 07:41] LABS: Mucous, Urine 0 SEEN /hpf (<or=2+)
[2019-01-24 07:46] LABS: Color, Urine Yellow (Yellow); Glucose, Dipstick 250 mg/dl (Normal); Ketone-Dipstick Negative (Negative); Leukocyte Esterase-Dipstick 100 /ul (Negative); Nitrite-Dipstick Negative (Negative); Occult Blood-Urine 25 /ul (Negative); Protein-Dipstick 100 mg/dl (Negative); Specific Gravity, Urine 1.015 (1.002-1.030); Urine Bilirubin Dipstick Negative (Negative); Urine Clarity Sl. Cloudy (Clear); Urine Urobilinogen Normal (Normal)
[2019-01-24 07:52] LABS: Red Blood Cells-Urine 0-5 SEEN /hpf (0-5); Squamous Epithelial Cells - UA 0-5 SEEN /hpf (0-5)
[2019-01-24 07:53] LABS: Bacteria 1+ /hpf (None Seen); White Blood Cells 10-25 SEEN /hpf (0-5)
[2019-01-24 08:58] LABS: Vitamin B12 220 pg/mL (211-911)
--- NOTE | 2019-01-24 09:39 | PN_ITS ---
Progress Note Patient is an 79-year-old gentleman with multiple comorbidities including end- stage renal disease Wednesdays and Fridays who presented with recurrent falls. Patient had also been referred to oncology on account of hypercalcemia he was apparently diagnosed with light chain disease 1. Physical deconditioning with recurrent falls admitted to regular nursing floor requested for PT OT eval and treatment with possible transfer to ECF on discharge. Case management consulted 2. End-stage renal disease on hemodialysis on Wednesdays consult placed to nephrology for dialysis orders 3. Hypercalcemia. Patient was apparently referred to Dr. Pena he was found to have a light chain disease consult placed to Dr. willard on admission 4. Anemia secondary to anemia of end-stage renal disease monitoring H&H with plans to transfuse if patient becomes symptomatic or hemoglobin falls below 7 5. History of melanoma involving the back for which he underwent excision and apparently has recurrent disease on the scalp 6. BPH is on tamsulosin did continue 7. Hypertension-blood pressure controlled, home medications continued with dose adjustment as needed 8. DVT prophylaxis-placed on heparin
[2019-01-24] MEDS: Tamsulosin HCl 0.4 MG Capsule PO ×2 (11:12→20:43)
[2019-01-24] MEDS: Ferrous Sulfate 325 MG Tablet PO ×2 (11:12→20:43)
[2019-01-24] MEDS: Menthol/Lanolin/Calamine/Znox 113 GM Tube 1 APPLIC TOPICAL ×3 (11:12→20:46)
[2019-01-24] MEDS: Midodrine HCl 5 MG Tablet 10 MG PO (11:13)
[2019-01-24] MEDS: Pantoprazole Sodium 40 MG Tablet PO ×2 (11:13→21:41)
[2019-01-24] MEDS: Metoprolol Tartrate 50 MG Tablet PO ×2 (11:13→21:41)
[2019-01-24] MEDS: Heparin Injection (Vial) 5,000 UNIT/ML VIAL 5000 UNIT SC ×2 (11:14→21:40)
[2019-01-24] MEDS: SEVELAMER CARBONATE 800 MG TABLET PO ×2 (11:16→20:43)
--- NOTE | 2019-01-24 11:24 | PCM.CONS.R ---
Problem List (1) Hypercalcemia Status: Acute (2) ESRD (end stage renal disease) Status: Chronic Consultation - Renal PCP/ Referring MD: Requesting physician: [] Primary care physician: Dona Santiago - History of Present Illness History of Present Illness: The patient is a 79 year old M PMH of melanoma, HTN and ESRD on MWF. Pt was brought to [facility] after a fall last night. Pt mays been feeling weak for the last 1 week and his legs gave up and fell last night. Pt was found to have hypercalcemia t 13.5 Pt was referred to oncology clinic by his operator technician Dr Cabrera for + light chain . Pt saw the oncologist last week. Pt did have HD session on Thursday. HD access i LUE AVF ROS: 12 systems review is negative except for weakness and fall. [] - Allergies Allergies: Allergies Sulfa (Sulfonamide Antibiotics) Allergy (Severe, Verified 01/24/19 02:05) Hives - Current Medications Current Medications: Current Medications Acetaminophen (Tylenol) 650 mg PO Q6H PRN PRN PRN Reason: Mild Pain (scale 0-3)/T>100.7 Bisacodyl (Dulcolax) 5 mg PO DAILY PRN PRN PRN Reason: Constipation Calamine/Phenol (Calmoseptine Ointment) 1 applic TOPICAL 4X/DAY [facility]; Protocol Last Admin: 01/24/19 11:12 Dose: 1 applic [facility] Last Admin: 01/24/19 11:12 Dose: 325 mg Heparin Sodium (Porcine) (Heparin Na) 5,000 unit SC Q12 [facility] Last Admin: 01/24/19 11:14 Dose: 5,000 unit Lidocaine/Diphenhydr/Alum/Mg/Simeth () 5 ml PO Q4H PRN PRN PRN Reason: OTHER Magnesium Hydroxide (Milk Of Magnesia) 30 ml PO DAILY PRN PRN PRN Reason: Constipation Metoprolol Tartrate (Lopressor (Beta Minoo)) 50 mg PO BID [facility] Last Admin: 01/24/19 11:13 Dose: 50 mg Midodrine (Proamatine) 10 mg PO MoWeFr@1000 [facility] Last Admin: 01/24/19 11:13 Dose: 10 mg Nutritional Formula (Nepro Carb Steady) 120 ml PO BID [facility] Last Admin: 01/24/19 11:16 Dose: Not Given Ondansetron HCl (Zofran Odt) 4 mg PO Q6H PRN PRN PRN Reason: NAUSEA Last Admin: 01/24/19 07:33 Dose: 4 mg Ondansetron HCl (Zofran) 4 mg IV Q8H PRN PRN PRN Reason: NAUSEA Oxycodone HCl (Oxyir) 5 mg PO Q8H PRN PRN PRN Reason: PAIN Pantoprazole Sodium (Protonix) 40 mg PO BID [facility] Last Admin: 01/24/19 11:13 Dose: 40 mg Senna/Docusate Sodium (Senokot-S, Inocencia-Colace) 1 tablet PO BID PRN PRN PRN Reason: CONSTIPATION Sevelamer Carbonate (Renvela) 800 mg PO TIDCM [facility] Last Admin: 01/24/19 11:16 Dose: 800 mg Sodium Chloride () 5 - 15 ml IV UD PRN PRN Reason: SALINE FLUSH Tamsulosin HCl (Flomax) 0.4 mg PO BID@0830,1730 [facility] Last Admin: 01/24/19 11:12 Dose: 0.4 mg Zolpidem Tartrate (Ambien (Generic)) 5 mg PO QHS PRN PRN PRN Reason: INSOMNIA - 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 Melanoma resection. - Social History Smoking Status: Former smoker Alcohol: None - Family History Maternal History Items: - - Unknown Paternal History Items: Heart Disease, - Patient Problems: Active and Suspected Problems (Last Reviewed 01/24/19 @ 05:59 by Al Gatica MD) Hypercalcemia (Acute) Generalized weakness (Acute) - Physical Exam General: Alert, Cooperative HEENT: Atraumatic Oral: Moist Mucosa Neck: Supple, No JVD Lungs: Clear to auscultation, Normal air movement, No rhonchi, No wheeze Cardiovascular: Regular rate, Regular Rhythm, Normal S1, Normal S2 Abdomen: Bowel Sounds Present, Soft, Non Tender Extremities: No clubbing, No cyanosis, No edema Skin: No rashes Musculoskeletal: No Muscle Wasting Lymphatic: No Cervical, Supraclavicular, or Inguinal Adenopathy Neurological: Neuro grossly intact Psych/Mental Status: Appropriate Vital Signs Temp Pulse Resp BP Pulse Ox 97.5 F L 65 18 171/64 H 97 01/24/19 07:16 01/24/19 11:13 01/24/19 07:16 01/24/19 07:16 01/24/19 07:16 Oxygen Flow Rate (L/min) 2 Oxygen Delivery Method Room Air Weight: 89.8 kg Body Mass Index (BMI) 35.0 Finger Stick Blood Glucose 116 Laboratory Tests Past 24 Hrs 01/24/19 01/24/19 01/24/19 02:24 02:24 02:24 WBC 4.5 RBC 3.61 L Hgb 11.3 L Hct 35.2 L MCV 97.5 H MCH 31.3 MCHC 32.1 RDW 16.0 H RDW Differential 57.1 H Plt Count 121 L MPV 9.3 Immature Gran % (Auto) 0.200 Neut % (Auto) 56.2 Lymph % (Auto) 28.8 Wilkinson % (Auto) 11.7 H Eos % (Auto) 2.7 Baso % (Auto) 0.4 Absolute Neuts (auto) 2.5 Absolute Lymphs (auto) 1.30 Total Counted Not Reportable PT 14.2 INR 1.1 APTT 28.0 Sodium 138 Potassium 4.1 Chloride 101 Carbon Dioxide 26.0 Anion Gap 11 BUN 29 H Creatinine 5.10 H Estim Creat Clear Calc 9.30 Est GFR (MDRD) Af Amer 14 L Est GFR (MDRD) Non-Af 12 L BUN/Creatinine Ratio 5.7 L Glucose 115 H Calcium 13.2 H* Total Bilirubin 0.50 AST 28 ALT 31 Alkaline Phosphatase 107 Total Protein 7.6 Albumin 2.5 L Globulin 5.1 H Albumin/Globulin Ratio 0.5 L Vitamin B12 Urine Color Urine Clarity Urine pH Ur Specific [place] Urine Protein Urine Glucose (UA) Urine Ketones Urine Occult Blood Urine Nitrite Urine Bilirubin Urine Urobilinogen Ur Leukocyte Esterase Urine RBC Urine WBC Ur Squamous Epith Cells Urine Bacteria Urine Mucus 01/24/19 01/24/19 02:24 07:20 WBC RBC Hgb Hct MCV MCH MCHC RDW RDW Differential Plt Count MPV Immature Gran % (Auto) Neut % (Auto) Lymph % (Auto) Wilkinson % (Auto) Eos % (Auto) Baso % (Auto) Absolute Neuts (auto) Absolute Lymphs (auto) Total Counted PT INR APTT Sodium Potassium Chloride Carbon Dioxide Anion Gap BUN Creatinine Estim Creat Clear Calc Est GFR (MDRD) Af Amer Est GFR (MDRD) Non-Af BUN/Creatinine Ratio Glucose Calcium Total Bilirubin AST ALT Alkaline Phosphatase Total Protein Albumin Globulin Albumin/Globulin Ratio Vitamin B12 220 Urine Color Yellow Urine Clarity Sl. Cloudy Urine pH 8.0 Ur Specific [place] 1.015 Urine Protein 100 H Urine Glucose (UA) 250 H Urine Ketones Negative Urine Occult Blood 25 H Urine Nitrite Negative Urine Bilirubin Negative Urine Urobilinogen Normal Ur Leukocyte Esterase 100 H Urine RBC 0-5 SEEN Urine WBC 10-25 SEEN Ur Squamous Epith Cells 0-5 SEEN Urine Bacteria 1+ Urine Mucus 0 SEEN Assessment/Plan All Active Problems (Last Reviewed 01/24/19 @ 05:59 by Al Gatica MD) Problem with dialysis access (Acute) Hypercalcemia (Acute) SIRS (systemic inflammatory response syndrome) (Resolved) Acute viral bronchitis (Acute) Generalized weakness (Acute) Generalized weakness (Acute) Transient expressive aphasia (Resolved) Near syncope (Resolved) Hypotension (Resolved) 1- ESRD on MWF. Pt goes to [facility]. Dr. Cabrera is his operator technician HD access : [facility] Will arrange for HD session today as per his chronic HD order. Will use 2Ca/3K dialysate today 2- Hypercalcemia: Not on active VD. Not on Calcium supplement. I have discussed the case with Dr. Cabrera who did outpatient work up which revealed + serum light chain for which he was referred to oncology clinic. Will dialyze the patient today with 2 Ca dialysate ( lowest Ca dialysate available) Will monitor Ca level. further treatment depends on Ca level after treatment 3- Anemia: Hgb 11.3 No need for DEAN. Will continue to monitor Hgb level 4- BMD: On sevelamer. Avoid Ca based phosphorus binder 5- Fall. PT.OT as per the primary service Thank you for the consult. Renal team will continue to follow Please call with any question or concern Adrian Cosme MD [phone]
--- NOTE | 2019-01-24 11:32 | CON.PCM_ITS ---
Problem List (1) Hypercalcemia Status: Acute (2) ESRD (end stage renal disease) Status: Chronic Consultation - Renal PCP/ Referring MD: Requesting physician: [] Primary care physician: Dona Santiago - History of Present Illness History of Present Illness: The patient is a 79 year old M PMH of melanoma, HTN and ESRD on MWF. Pt was brought to [facility] after a fall last night. Pt mays been feeling weak for the last 1 week and his legs gave up and fell last night. 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 Pt saw the oncologist last week. Pt did have HD session on Thursday. HD access i LUE AVF ROS: 12 systems review is negative except for weakness and fall. [] - Allergies Allergies: Allergies Sulfa (Sulfonamide Antibiotics) Allergy (Severe, Verified 01/24/19 02:05) Hives - Current Medications Current Medications: Current Medications Acetaminophen (Tylenol) 650 mg PO Q6H PRN PRN PRN Reason: Mild Pain (scale 0-3)/T>100.7 Bisacodyl (Dulcolax) 5 mg PO DAILY PRN PRN PRN Reason: Constipation Calamine/Phenol (Calmoseptine Ointment) 1 applic TOPICAL 4X/DAY [facility]; Protocol Last Admin: 01/24/19 11:12 Dose: 1 applic Ferrous Sulfate ([facility]ous Sulfate) [facility] Last Admin: 01/24/19 11:12 Dose: 325 mg Heparin Sodium (Porcine) (Heparin Na) 5,000 unit SC Q12 [facility] Last Admin: 01/24/19 11:14 Dose: 5,000 unit Lidocaine/Diphenhydr/Alum/Mg/Simeth () 5 ml PO Q4H PRN PRN PRN Reason: OTHER Magnesium Hydroxide (Milk Of Magnesia) 30 ml PO DAILY PRN PRN PRN Reason: Constipation Metoprolol Tartrate (Lopressor (Beta Minoo)) 50 mg PO BID [facility] Last Admin: 01/24/19 11:13 Dose: 50 mg Midodrine (Proamatine) 10 mg PO MoWeFr@1000 [facility] Last Admin: 01/24/19 11:13 Dose: 10 mg Nutritional Formula (Nepro Carb Steady) 120 ml PO BID [facility] Last Admin: 01/24/19 11:16 Dose: Not Given Ondansetron HCl (Zofran Odt) 4 mg PO Q6H PRN PRN PRN Reason: NAUSEA Last Admin: 01/24/19 07:33 Dose: 4 mg Ondansetron HCl (Zofran) 4 mg IV Q8H PRN PRN PRN Reason: NAUSEA Oxycodone HCl (Oxyir) 5 mg PO Q8H PRN PRN PRN Reason: PAIN Pantoprazole Sodium (Protonix) 40 mg PO BID [facility] Last Admin: 01/24/19 11:13 Dose: 40 mg Senna/Docusate Sodium (Senokot-S, Inocencia-Colace) 1 tablet PO BID PRN PRN PRN Reason: CONSTIPATION Sevelamer Carbonate (Renvela) 800 mg PO TIDCM [facility] Last Admin: 01/24/19 11:16 Dose: 800 mg Sodium Chloride () 5 - 15 ml IV UD PRN PRN Reason: SALINE FLUSH Tamsulosin HCl (Flomax) 0.4 mg PO BID@0830,1730 [facility] Last Admin: 01/24/19 11:12 Dose: 0.4 mg Zolpidem Tartrate (Ambien (Generic)) 5 mg PO QHS PRN PRN PRN Reason: INSOMNIA - 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 Melanoma resection. - Social History Smoking Status: Former smoker Alcohol: None - Family History Maternal History Items: - - Unknown Paternal History Items: Heart Disease, - Patient Problems: Active and Suspected Problems (Last Reviewed 01/24/19 @ 05:59 by Al Gatica MD) Hypercalcemia (Acute) Generalized weakness (Acute) - Physical Exam General: Alert, Cooperative HEENT: Atraumatic Oral: Moist Mucosa Neck: Supple, No JVD Lungs: Clear to auscultation, Normal air movement, No rhonchi, No wheeze Cardiovascular: Regular rate, Regular Rhythm, Normal S1, Normal S2 Abdomen: Bowel Sounds Present, Soft, Non Tender Extremities: No clubbing, No cyanosis, No edema Skin: No rashes Musculoskeletal: No Muscle Wasting Lymphatic: No Cervical, Supraclavicular, or Inguinal Adenopathy Neurological: Neuro grossly intact Psych/Mental Status: Appropriate Vital Signs Temp Pulse Resp BP Pulse Ox 97.5 F L 65 18 171/64 H 97 01/24/19 07:16 01/24/19 11:13 01/24/19 07:16 01/24/19 07:16 01/24/19 07:16 Oxygen Flow Rate (L/min) 2 Oxygen Delivery Method Room Air Weight: 89.8 kg Body Mass Index (BMI) 35.0 Finger Stick Blood Glucose 116 Laboratory Tests Past 24 Hrs 01/24/19 01/24/19 01/24/19 02:24 02:24 02:24 WBC 4.5 RBC 3.61 L Hgb 11.3 L Hct 35.2 L MCV 97.5 H MCH 31.3 MCHC 32.1 RDW 16.0 H RDW Differential 57.1 H Plt Count 121 L MPV 9.3 Immature Gran % (Auto) 0.200 Neut % (Auto) 56.2 Lymph % (Auto) 28.8 [place] % (Auto) 11.7 H Eos % (Auto) 2.7 Baso % (Auto) 0.4 Absolute Neuts (auto) 2.5 Absolute Lymphs (auto) 1.30 Total Counted Not Reportable PT 14.2 INR 1.1 APTT 28.0 Sodium 138 Potassium 4.1 Chloride 101 Carbon Dioxide 26.0 Anion Gap 11 BUN 29 H Creatinine 5.10 H Estim Creat Clear Calc 9.30 Est GFR (MDRD) Af Amer 14 L Est GFR (MDRD) Non-Af 12 L BUN/Creatinine Ratio 5.7 L Glucose 115 H Calcium 13.2 H* Total Bilirubin 0.50 AST 28 ALT 31 Alkaline Phosphatase 107 Total Protein 7.6 Albumin 2.5 L Globulin 5.1 H Albumin/Globulin Ratio 0.5 L Vitamin B12 Urine Color Urine Clarity Urine pH Ur Specific [place] Urine Protein Urine Glucose (UA) Urine Ketones Urine Occult Blood Urine Nitrite Urine Bilirubin Urine Urobilinogen Ur Leukocyte Esterase Urine RBC Urine WBC Ur Squamous Epith Cells Urine Bacteria Urine Mucus 01/24/19 01/24/19 02:24 07:20 WBC RBC Hgb Hct MCV MCH MCHC RDW RDW Differential Plt Count MPV Immature Gran % (Auto) Neut % (Auto) Lymph % (Auto) [place] % (Auto) Eos % (Auto) Baso % (Auto) Absolute Neuts (auto) Absolute Lymphs (auto) Total Counted PT INR APTT Sodium Potassium Chloride Carbon Dioxide Anion Gap BUN Creatinine Estim Creat Clear Calc Est GFR (MDRD) Af Amer Est GFR (MDRD) Non-Af BUN/Creatinine Ratio Glucose Calcium Total Bilirubin AST ALT Alkaline Phosphatase Total Protein Albumin Globulin Albumin/Globulin Ratio Vitamin B12 220 Urine Color Yellow Urine Clarity Sl. Cloudy Urine pH 8.0 Ur Specific [place] 1.015 Urine Protein 100 H Urine Glucose (UA) 250 H Urine Ketones Negative Urine Occult Blood 25 H Urine Nitrite Negative Urine Bilirubin Negative Urine Urobilinogen Normal Ur Leukocyte Esterase 100 H Urine RBC 0-5 SEEN Urine WBC 10-25 SEEN Ur Squamous Epith Cells 0-5 SEEN Urine Bacteria 1+ Urine Mucus 0 SEEN Assessment/Plan All Active Problems (Last Reviewed 01/24/19 @ 05:59 by Al Gatica MD) Problem with dialysis access (Acute) Hypercalcemia (Acute) SIRS (systemic inflammatory response syndrome) (Resolved) Acute viral bronchitis (Acute) Generalized weakness (Acute) Generalized weakness (Acute) Transient expressive aphasia (Resolved) Near syncope (Resolved) Hypotension (Resolved) 1- ESRD on MWF. Pt goes to [facility]. 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 Will use 2Ca/3K dialysate today 2- Hypercalcemia: Not on active VD. Not on Calcium supplement. I have discussed the case with Dr. Cabrera who did outpatient work up which revealed + serum light chain for which he was referred to oncology clinic. Will dialyze the patient today with 2 Ca dialysate ( lowest Ca dialysate available) Will monitor Ca level. further treatment depends on Ca level after treatment 3- Anemia: Hgb 11.3 No need for DEAN. Will continue to monitor Hgb level 4- BMD: On sevelamer. Avoid Ca based phosphorus binder 5- Fall. PT.OT as per the primary service Thank you for the consult. Renal team will continue to follow Please call with any question or concern Adrian Cosme MD [phone]
--- NOTE | 2019-01-24 11:45 | CASEMGMT ---
KALLI BALTAZAR Face to Face with patient for initial transition planning/care coordination assessment. KALLI BALTAZAR introduced self and role at [facility]. Patient lying in bed, alert and oriented, at bedside. Patient willing to participate in assessment and is able to answer all questions appropriately. Care providers, pharmacy, and demographics verified. Patient wishes to discharge to [facility] [place]. Patient states he has no further needs or concerns at this time. JUAN Alcantara notified of patient's request for SNF at discharge. PCP: Jack Specialists: Thien, party plan sales host/hostess; Jean, oncologist; Teresa, urologist Preferred Pharmacy: [facility] Insurance: [facility] Prescription Benefit: yes Living Will/HPOA: yes, Phyllis Mccullough LNOK: Living Arrangements: Patient lives with in mobile home with 4 steps to enter the home. assists patient with some ADLs Transportation: [place] DME/HHC: Patient states he has shower chair, raised toilet, hospital bed, walker, wc at home. Patient has previously been to [facility]. Patient has HD MWF 630am at [facility]. Disposition Plan: [facility] pending acceptance and qualifying stay. Reba MERCADO, RN, CM
--- NOTE | 2019-01-24 12:06 | PCA ---
sent request for medical records to doctor macis office havent recieved any back
--- NOTE | 2019-01-24 15:30 | CASEMGMT ---
Social Work: Spoke with Reba Alcantara, who is requesting this fax [facility] at D[facility]C per patient/ preference. TC to [facility] at [facility]. [facility] states that a male skilled bed is available and is requesting this fax clinicals. Clinicals faxed. PLAN: Patient to be discharged to [facility] [place] pending acceptance. MARIE Johnson
[2019-01-24] MEDS: Heparin 10,000 UNITS/10 ML Vial 4000 UNITS IV (17:00)
--- NOTE | 2019-01-24 17:06 | CASEMGMT ---
Social Work: Received a voice mail from Amarilis at [facility] stating that they are able to accept patient at D/C. TC to patient's , aware that [facility] able to accept patient at D/C. PLAN: Patient to be discharged to [facility] [place] when medically ready for D/C. MARIE Johnson
--- NOTE | 2019-01-24 20:14 | DIALYSIS ---
Pt tolerated 3.5 hr HD tx well. Net UF -2000ml. See flow record for tx data. Hep B Sag drawn and sent.
[2019-01-24] MEDS: 0.9% NaCl Peripheral Flush Adult/Peds IV (21:49)
[2019-01-25] VITALS (12 sets, daily range): BP systolic 111–147; BP diastolic 48–89; PULSE 58–88; RESP 18; TEMP 36.7–37.1; O2SAT 94–99
[2019-01-25 07:58] LABS: Anion Gap 6 (5-15); BUN 15 mg/dL (7-18); BUN/Creat Ratio 4.2 RATIO (10-20); Calcium,Total 10.3 mg/dL (8.5-10.1); Chloride 98 mmol/L (98-107); Creatinine, Serum 3.56 mg/dL (0.70-1.30); EST Glomerular Filtration Rate 18 mL/min (>60); Est Glom Filt Rate - Afr Amer 21 mL/min (>60); Estimated Creatinine Clearance 13.32 ml/min; Glucose 76 mg/dL (74-106); Potassium 3.8 mmol/L (3.5-5.1); Sodium Level 134 mmol/L (136-145)
[2019-01-25] MEDS: Tamsulosin HCl 0.4 MG Capsule PO ×2 (09:25→18:09)
[2019-01-25] MEDS: Ferrous Sulfate 325 MG Tablet PO ×2 (09:25→18:09)
[2019-01-25] MEDS: Menthol/Lanolin/Calamine/Znox 113 GM Tube 1 APPLIC TOPICAL ×4 (09:25→21:21)
[2019-01-25] MEDS: Metoprolol Tartrate 50 MG Tablet PO ×2 (09:25→21:15)
[2019-01-25] MEDS: Pantoprazole Sodium 40 MG Tablet PO ×2 (09:25→21:16)
[2019-01-25] MEDS: Heparin Injection (Vial) 5,000 UNIT/ML VIAL 5000 UNIT SC ×2 (09:26→21:16)
[2019-01-25] MEDS: SEVELAMER CARBONATE 800 MG TABLET PO ×3 (09:26→18:09)
--- NOTE | 2019-01-25 09:33 | RAD_ITS ---
STUDY: X-RAY BONE SURVEY COMPLETE REASON FOR EXAM: Male, 79 years old. Hypercalcemia TECHNIQUE: One view of the pelvis was obtained. 2 views of the cervical spine were obtained. 2 views of the thoracic spine were obtained. 2 views of the lumbar spine were obtained. 2 views of the femur. 2 views of the humerus. : 2 views of the skull were obtained. COMPARISON: None. FINDINGS: CHEST: The lungs are clear and expanded. There is no demonstrated pleural abnormality. The heart is enlarged Normal mediastinum and marcia. Normal visualized pulmonary arteries. Normal visualized aortic arch and descending thoracic aorta. There are diffuse degenerative changes of the visualized thoracic spine. Normal visualized ribs, clavicles, and shoulders. There is no demonstrated abnormality of the visualized soft tissue structures of the upper abdomen. PELVIS: There is a non-specific bowel gas pattern. Normal visualized soft tissue structures. Normal bilateral iliac wings, sacroiliac joints and visualized sacrum. Normal visualized bilateral superior and inferior pubic rami. Normal pubic symphysis. Normal ischial tuberosities. Normal visualized right femoral head. Normal right acetabulum. There is mild articular joint space narrowing of the right hip. Normal visualized left femoral head. Normal left acetabulum. There is mild articular joint space narrowing of the left hip. CERVICAL SPINE: Normal anterior atlantoaxial articulation. Normal odontoid process. Normal cervical lordosis. Normal vertebral bodies and endplates. There is multi-level degenerative disc disease with multilevel disc space narrowing. Normal visualized intervertebral neuroforamina. The soft tissue structures are unremarkable. THORACIC SPINE: Normal kyphosis of the thoracic spine. There is no substantial scoliosis. Normal thoracic vertebrae and endplates. There is multilevel disc space narrowing of the thoracic spine. The soft tissue structures are unremarkable. LUMBAR SPINE: Normal lumbar lordosis. There is no substantial scoliosis. There is a normal alignment of the vertebrae. Normal vertebral bodies and endplates. There is multi-level degenerative disc disease with multi-level disc space narrowing. The soft tissue structures are unremarkable. RIGHT FEMUR: Normal visualized femur. Normal visualized soft tissue structure. There is RIGHT knee replacement hardware. LEFT FEMUR: Normal visualized femur. Normal visualized soft tissue structure. RIGHT HUMERUS :Normal visualized humerus. There is no demonstrated fracture or osseous destructive process. There is no demonstrated soft tissue abnormality. LEFT HUMERUS:Normal visualized humerus. There is no demonstrated fracture or osseous destructive process. There is no demonstrated soft tissue abnormality. SKULL: There is no demonstrated soft tissue swelling. Normal osseous calvarium. Normal visualized facial bones. Normal visualized paranasal sinuses. RAD/Bone Survey Comp(Axial&Append) IMPRESSION: There is NO evidence of acute bony abnormality. There are NO fractures. There is NO lytic or blastic bone lesion. Electronically Signed: Kevin Dennis MD at 5:48 EDT , Service support ,
--- NOTE | 2019-01-25 09:33 | PN_ITS ---
Patient Problems: Active and Suspected Problems (Last Reviewed 01/24/19 @ 05:59 by Al Gatica MD) Hypercalcemia (Acute) Generalized weakness (Acute) Subjective: Patient is an 79-year-old gentleman with multiple comorbidities including end- stage renal disease Wednesdays and Fridays who presented with recurrent falls. Patient had also been referred to oncology on account of hypercalcemia he was apparently diagnosed with light chain disease Objective: GENERAL: cooperative HEENT: Atraumatic; moist oral mucosa EYES; Anicteric, Normal Conjunctiva NECK; supple, normal thyroid, no distended JVD. RESPIRATORY: Diminished to auscultation bilaterally, CARDIOVASCULAR: Regular S1 S2, no audible murmurs GI: soft, non-tender, normoactive bowel sounds, : No Renal angle tenderness; EXTREMITIES: No edema, no clubbing, no cyanosis. MUSCULOSKELETAL: No Joint Tenderness; no muscle waisting NEURO: Awake; no lateralizing signs. SKIN: No Rash PSYCH; Normal affect Vitals/I&O's: Vital Signs Temp Pulse Resp BP Pulse Ox 98.7 F 74 18 124/48 H 97 01/25/19 02:45 01/25/19 09:25 01/25/19 02:45 01/25/19 02:45 01/25/19 02:45 Oxygen Flow Rate (L/min) 2 Oxygen Delivery Method Room Air Weight: 88.5 kg Body Mass Index (BMI) 35.0 Finger Stick Blood Glucose 116 Intake and Output for Last 24 Hours 01/23/19 01/24/19 01/25/19 23:59 23:59 23:59 Intake Total 100 / 100 Output Total 200 / 200 Balance -200 / -200 100 / 100 Laboratory Results 01/24/19 02:24: Hep Bs Antigen Pending 01/25/19 06:50: Sodium 134 L, Potassium 3.8, Chloride 98, Carbon Dioxide 30.0, Anion Gap 6, BUN 15, Creatinine 3.56 H, Estim Creat Clear Calc 13.32, Est GFR (MDRD) Af Amer 21 L, Est GFR (MDRD) Non-Af 18 L, BUN/Creatinine Ratio 4.2 L, Glucose 76, Calcium 10.3 H Current Medications Acetaminophen (Tylenol) 650 mg PO Q6H PRN PRN PRN Reason: Mild Pain (scale 0-3)/T>100.7 Bisacodyl (Dulcolax) 5 mg PO DAILY PRN PRN PRN Reason: Constipation Calamine/Phenol (Calmoseptine Ointment) 1 applic TOPICAL 4X/DAY [facility] [place]; Protocol Last Admin: 01/25/19 09:25 Dose: 1 applic Ferrous Sulfate (Ferrous Sulfate) 325 mg PO BIDCM [facility] [place] Last Admin: 01/25/19 09:25 Dose: 325 mg Heparin Sodium (Porcine) (Heparin Na) 5,000 unit SC Q12 [facility] [place] Last Admin: 01/25/19 09:26 Dose: 5,000 unit Lidocaine/Diphenhydr/Alum/Mg/Simeth () 5 ml PO Q4H PRN PRN PRN Reason: OTHER Magnesium Hydroxide (Milk Of Magnesia) 30 ml PO DAILY PRN PRN PRN Reason: Constipation Metoprolol Tartrate (Lopressor (Beta Minoo)) 50 mg PO BID [facility] Last Admin: 01/25/19 09:25 Dose: 50 mg Midodrine (Proamatine) 10 mg PO MoWeFr@1000 [facility] Last Admin: 01/24/19 11:13 Dose: 10 mg Ondansetron HCl (Zofran Odt) 4 mg PO Q6H PRN PRN PRN Reason: NAUSEA Last Admin: 01/24/19 07:33 Dose: 4 mg Ondansetron HCl (Zofran) 4 mg IV Q8H PRN PRN PRN Reason: NAUSEA Oxycodone HCl (Oxyir) 5 mg PO Q8H PRN PRN PRN Reason: PAIN Pantoprazole Sodium (Protonix) 40 mg PO BID [facility] [place] Last Admin: 01/25/19 09:25 Dose: 40 mg Senna/Docusate Sodium (Senokot-S, Inocencia-Colace) 1 tablet PO BID PRN PRN PRN Reason: CONSTIPATION Sevelamer Carbonate (Renvela) 800 mg PO TIDCM [facility] [place] Last Admin: 01/25/19 09:26 Dose: 800 mg Sodium Chloride () 5 - 15 ml IV UD PRN PRN Reason: SALINE FLUSH Last Admin: 01/24/19 21:49 Dose: 10 ml Tamsulosin HCl (Flomax) 0.4 mg PO BID@0830,1730 [facility] [place] Last Admin: 01/25/19 09:25 Dose: 0.4 mg Zolpidem Tartrate (Ambien (Generic)) 5 mg PO QHS PRN PRN PRN Reason: INSOMNIA Medical Necessity - Tobacco Use Smoking Status: Former smoker Tobacco Use: Cigarettes Assessment/Plan All Active Problems (Last Reviewed 01/24/19 @ 05:59 by Al Gatica MD) Problem with dialysis access (Acute) Hypercalcemia (Acute) SIRS (systemic inflammatory response syndrome) (Resolved) Acute viral bronchitis (Acute) Generalized weakness (Acute) Generalized weakness (Acute) Transient expressive aphasia (Resolved) Near syncope (Resolved) Hypotension (Resolved) Patient is an 79-year-old gentleman with multiple comorbidities including end- stage renal disease Wednesdays and Fridays who presented with recurrent falls. Patient had also been referred to oncology on account of hypercalcemia he was apparently diagnosed with light chain disease 1. Physical deconditioning with recurrent falls admitted to regular nursing floor requested for PT OT eval and treatment with possible transfer to ECF on discharge. Case management consulted 2. End-stage renal disease on hemodialysis on Wednesdays consult placed to nephrology for dialysis orders 3. Hypercalcemia. Patient was apparently referred to Dr. 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 4. Anemia secondary to anemia of end-stage renal disease monitoring H&H with plans to transfuse if patient becomes symptomatic or hemoglobin falls below 7 5. History of melanoma involving the back for which he underwent excision and apparently has recurrent disease on the scalp 6. BPH is on tamsulosin did continue 7. Hypertension-blood pressure controlled, home medications continued with dose adjustment as needed 8. DVT prophylaxis-placed on heparin Code Visit Inpatient E&M: 56084 [facility] Hosp L3
--- NOTE | 2019-01-25 09:53 | CASEMGMT ---
Social Work Note Physician updated that pt is able to [facility] to [facility] Plan: [facility] skilled Reba Alcantara DIRECTOR OF STUDENT FINANCIAL AID, NETWORK SUPPORT ANALYST
--- NOTE | 2019-01-25 10:11 | NURSING ---
to x rAY VIA BED
--- NOTE | 2019-01-25 13:45 | PCM.PN.REN ---
Patient Problems: Active and Suspected Problems (Last Reviewed 01/24/19 @ 05:59 by Al Gatica MD) Hypercalcemia (Acute) Generalized weakness (Acute) Subjective: No acute events. No nausea no vomiting. No shortness of breath - Physical Exam General: Alert, Oriented x3 HEENT: Atraumatic Oral: Moist Mucosa Neck: Supple, No JVD Lungs: Clear to auscultation, Normal air movement, No rhonchi, No wheeze Cardiovascular: Regular rate, Regular Rhythm, Normal S1, Normal S2 Abdomen: Bowel Sounds Present, Soft, Non Tender, Non-Distended Extremities: No clubbing, No cyanosis, No edema Skin: No rashes Musculoskeletal: No Tenderness to Palpation of Joints or Extremities Lymphatic: No Cervical, Supraclavicular, or Inguinal Adenopathy Neurological: Cranial nerves II-XII grossly intact, Neuro grossly intact Psych/Mental Status: Appropriate Vital Signs Temp Pulse Resp BP Pulse Ox 98.1 F 74 18 119/51 L 97 01/25/19 08:45 01/25/19 09:25 01/25/19 08:45 01/25/19 08:45 01/25/19 08:45 Oxygen Flow Rate (L/min) 2 Oxygen Delivery Method Room Air Weight: 88.5 kg Body Mass Index (BMI) 35.0 Finger Stick Blood Glucose 116 Intake and Output for Last 24 Hours 01/23/19 01/24/19 01/25/19 23:59 23:59 23:59 Intake Total 100 / 100 Output Total 200 / 200 Balance -200 / -200 100 / 100 Laboratory Tests Past 24 Hrs 01/24/19 01/25/19 02:24 06:50 Sodium 134 L Potassium 3.8 Chloride 98 Carbon Dioxide 30.0 Anion Gap 6 BUN 15 Creatinine 3.56 H Estim Creat Clear Calc 13.32 Est GFR (MDRD) Af Amer 21 L Est GFR (MDRD) Non-Af 18 L BUN/Creatinine Ratio 4.2 L Glucose 76 Calcium 10.3 H Hep Bs Antigen Pending Medical Necessity - Tobacco Use Smoking Status: Former smoker Tobacco Use: Cigarettes Assessment/Plan All Active Problems (Last Reviewed 01/24/19 @ 05:59 by Al Gatica MD) Problem with dialysis access (Acute) Hypercalcemia (Acute) SIRS (systemic inflammatory response syndrome) (Resolved) Acute viral bronchitis (Acute) Generalized weakness (Acute) Generalized weakness (Acute) Transient expressive aphasia (Resolved) Near syncope (Resolved) Hypotension (Resolved) 1- ESRD on MWF. Pt goes to [facility]. 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 No need for hemodialysis today. We will arrange for hemodialysis session tomorrow 2- Hypercalcemia: Not on active VD. Not on Calcium supplement. I have discussed the case with Dr. Cabrera who did outpatient work up which revealed + serum light chain for which he was referred to oncology clinic. Patient has appointment coming with the oncology clinic February 17 Calcium level improved with dialysis. Total calcium level today 10.3. We will continue to use low calcium dialysate 3- Anemia: Hgb 11.3 No need for DEAN. Will continue to monitor Hgb level 4- BMD: On sevelamer. Avoid Ca based phosphorus binder 5- Fall. PT.OT as per the primary service Renal team will continue to follow Please call with any question or concern Adrian Cosme MD [phone]
[2019-01-26] VITALS (11 sets, daily range): BP systolic 114–157; BP diastolic 55–78; PULSE 52–67; RESP 14–18; TEMP 36.4–37.2; O2SAT 94–100
[2019-01-26 06:45] LABS: Hematocrit 34.4 % (40-54); Hemoglobin 10.5 g/dl (13.0-16.5); Mean Corp Hgb Conc 30.5 g/gl (32-36); Mean Corpuscular Hgb 30.7 pg (27.0-32.0); Mean Corpuscular Volume 100.6 fL (80-94); Mean Platelet Vol. 9.5 fl (6.2-12.0); Platelet Count 96 K/mm3 (150-450); RBC Distribution Width CV 16.4 % (11.6-14.6); RBC Distribution Width SD 57.6 fl (35.1-43.9); Red Blood Count 3.42 M/mm3 (4.6-6.2); White Blood Count 4.3 K/mm3 (4.4-11.0)
[2019-01-26 06:47] LABS: Scan Indicated on CBC? Y/N NO
[2019-01-26 07:14] LABS: Anion Gap 11 (5-15); BUN 24 mg/dL (7-18); BUN/Creat Ratio 5.2 RATIO (10-20); Calcium,Total 10.9 mg/dL (8.5-10.1); Chloride 100 mmol/L (98-107); Creatinine, Serum 4.66 mg/dL (0.70-1.30); EST Glomerular Filtration Rate 13 mL/min (>60); Est Glom Filt Rate - Afr Amer 16 mL/min (>60); Estimated Creatinine Clearance 10.18 ml/min; Glucose 71 mg/dL (74-106); Magnesium 2.1 mg/dL (1.6-2.6); Potassium 3.9 mmol/L (3.5-5.1); Sodium Level 137 mmol/L (136-145)
[2019-01-26] MEDS: SEVELAMER CARBONATE 800 MG TABLET PO ×2 (09:38→23:56)
[2019-01-26] MEDS: Menthol/Lanolin/Calamine/Znox 113 GM Tube 1 APPLIC TOPICAL ×4 (09:40→23:59)
--- NOTE | 2019-01-26 11:40 | PN_ITS ---
Patient Problems: Active and Suspected Problems (Last Reviewed 01/24/19 @ 05:59 by Al Gatica MD) Hypercalcemia (Acute) Generalized weakness (Acute) Subjective: Patient seen calcium level did improve with dialysis. Patient remains significantly deconditioned and has a significant flat affect. Plan [facility] once insurance precertification is obtained Objective: GENERAL: cooperative HEENT: Atraumatic; EYES; Anicteric, Normal Conjunctiva NECK; supple, normal thyroid, RESPIRATORY: Diminished to auscultation bilaterally, CARDIOVASCULAR: Regular S1 S2, GI: soft, non-tender, normoactive bowel sounds, : No Renal angle tenderness; EXTREMITIES: No edema, no clubbing, no cyanosis. MUSCULOSKELETAL: No Joint Tenderness; NEURO: Awake; no lateralizing signs. SKIN: No Rash PSYCH; flat affect Vitals/I&O's: Vital Signs Temp Pulse Resp BP Pulse Ox 97.5 F L 57 L 18 151/75 H 100 01/26/19 08:11 01/26/19 08:11 01/26/19 08:11 01/26/19 08:11 01/26/19 08:11 Oxygen Flow Rate (L/min) 2 Oxygen Delivery Method Room Air Weight: 87.8 kg Body Mass Index (BMI) 35.0 Finger Stick Blood Glucose 116 Intake and Output for Last 24 Hours 01/24/19 01/25/19 01/26/19 23:59 23:59 23:59 Intake Total 100 / 100 100 / 100 Output Total 200 / 200 Balance -200 / -200 100 / 100 100 / 100 Microbiology Past 72 Hours 01/24/19 07:20 Urine, Clean Catch Urine Culture - Final Mixed Gram Positive Organisms Laboratory Results 01/26/19 05:50: WBC 4.3 L, RBC 3.42 L, Hgb 10.5 L, Hct 34.4 L, MCV 100.6 H, MCH 30.7, MCHC 30.5 L, RDW 16.4 H, RDW Differential 57.6 H, Plt Count 96 L, MPV 9.5 01/26/19 05:50: Sodium 137, Potassium 3.9, Chloride 100, Carbon Dioxide 26.0, Anion Gap 11, BUN 24 H, Creatinine 4.66 H, Estim Creat Clear Calc 10.18, Est GFR (MDRD) Af Amer 16 L, Est GFR (MDRD) Non-Af 13 L, BUN/Creatinine Ratio 5.2 L, Glucose 71 L, Calcium 10.9 H, Magnesium 2.1 Current Medications Acetaminophen (Tylenol) 650 mg PO Q6H PRN PRN PRN Reason: Mild Pain (scale 0-3)/T>100.7 Bisacodyl (Dulcolax) 5 mg PO DAILY PRN PRN PRN Reason: Constipation Calamine/Phenol (Calmoseptine Ointment) 1 applic TOPICAL 4X/DAY [facility]; Protocol Last Admin: 01/26/19 09:40 Dose: 1 applic Ferrous Sulfate (Ferrous Sulfate) 325 mg PO BIDCM [facility] Last Admin: 01/25/19 18:09 Dose: 325 mg Heparin Sodium (Porcine) (Heparin Na) 5,000 unit SC Q12 [facility] Last Admin: 01/25/19 21:16 Dose: 5,000 unit Lidocaine/Diphenhydr/Alum/Mg/Simeth () 5 ml PO Q4H PRN PRN PRN Reason: OTHER Magnesium Hydroxide (Milk Of Magnesia) 30 ml PO DAILY PRN PRN PRN Reason: Constipation Metoprolol Tartrate (Lopressor (Beta Minoo)) 50 mg PO BID [facility] Last Admin: 01/25/19 21:15 Dose: 50 mg Midodrine (Proamatine) 10 mg PO MoWeFr@1000 [facility] Last Admin: 01/24/19 11:13 Dose: 10 mg Ondansetron HCl (Zofran Odt) 4 mg PO Q6H PRN PRN PRN Reason: NAUSEA Last Admin: 01/24/19 07:33 Dose: 4 mg Ondansetron HCl (Zofran) 4 mg IV Q8H PRN PRN PRN Reason: NAUSEA Oxycodone HCl (Oxyir) 5 mg PO Q8H PRN PRN PRN Reason: PAIN Pantoprazole Sodium (Protonix) 40 mg PO BID [facility] Last Admin: 01/25/19 21:16 Dose: 40 mg Senna/Docusate Sodium (Senokot-S, Inocencia-Colace) 1 tablet PO BID PRN PRN PRN Reason: CONSTIPATION Sevelamer Carbonate (Renvela) 800 mg PO TIDCM [facility] Last Admin: 01/26/19 09:38 Dose: 800 mg Sodium Chloride () 5 - 15 ml IV UD PRN PRN Reason: SALINE FLUSH Last Admin: 01/24/19 21:49 Dose: 10 ml Tamsulosin HCl (Flomax) 0.4 mg PO BID@0830,1730 [facility] Last Admin: 01/25/19 18:09 Dose: 0.4 mg Zolpidem Tartrate (Ambien (Generic)) 5 mg PO QHS PRN PRN PRN Reason: INSOMNIA Medical Necessity - Tobacco Use Smoking Status: Former smoker Tobacco Use: Cigarettes Assessment/Plan All Active Problems (Last Reviewed 01/24/19 @ 05:59 by Al Gatica MD) Problem with dialysis access (Acute) Hypercalcemia (Acute) SIRS (systemic inflammatory response syndrome) (Resolved) Acute viral bronchitis (Acute) Generalized weakness (Acute) Generalized weakness (Acute) Transient expressive aphasia (Resolved) Near syncope (Resolved) Hypotension (Resolved) Patient is an 79-year-old gentleman with multiple comorbidities including end- stage renal disease Wednesdays and Fridays who presented with recurrent falls. Patient had also been referred to oncology on account of hypercalcemia he was apparently diagnosed with light chain disease 1. Physical deconditioning with recurrent falls admitted to regular nursing floor requested for PT OT eval and treatment with possible transfer to ECF on discharge. Case management consulted 2. End-stage renal disease on hemodialysis on Wednesdays consult placed to nephrology for dialysis orders patient was seen in consultation by nephrology Dr. Hill Case discussed with him 3. Hypercalcemia. Patient was apparently referred to Dr. 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 4. Anemia secondary to anemia of end-stage renal disease monitoring H&H with plans to transfuse if patient becomes symptomatic or hemoglobin falls below 7 5. History of melanoma involving the back for which he underwent excision and apparently has recurrent disease on the scalp 6. BPH is on tamsulosin did continue 7. Hypertension-blood pressure controlled, home medications continued with dose adjustment as needed 8. DVT prophylaxis-placed on heparin Code Visit Inpatient E&M: 46353 [facility] Hosp L2
--- NOTE | 2019-01-26 14:00 | PN.RENAL_ITS ---
Patient Problems: Active and Suspected Problems (Last Reviewed 01/24/19 @ 05:59 by Al Gatica MD) Hypercalcemia (Acute) Generalized weakness (Acute) Subjective: No nausea no vomiting. No shortness of breath. No acute event Patient's is at bedside - Physical Exam General: Alert, Cooperative HEENT: Atraumatic Oral: Moist Mucosa Neck: Supple, No JVD Lungs: Clear to auscultation, Normal air movement, No rhonchi, No wheeze Cardiovascular: Regular rate, Regular Rhythm, Normal S1, Normal S2 Abdomen: Bowel Sounds Present, Soft, Non Tender Extremities: No clubbing, No cyanosis, No edema Musculoskeletal: No Muscle Wasting Lymphatic: No Cervical, Supraclavicular, or Inguinal Adenopathy Neurological: Cranial nerves II-XII grossly intact, Neuro grossly intact Psych/Mental Status: Appropriate Vital Signs Temp Pulse Resp BP Pulse Ox 97.5 F L 58 L 16 132/55 H 96 01/26/19 13:31 01/26/19 13:31 01/26/19 13:31 01/26/19 13:31 01/26/19 13:31 Oxygen Flow Rate (L/min) 2 Oxygen Delivery Method Room Air Weight: 87.8 kg Body Mass Index (BMI) 35.0 Finger Stick Blood Glucose 116 Intake and Output for Last 24 Hours 01/24/19 01/25/19 01/26/19 23:59 23:59 23:59 Intake Total 100 / 100 300 / 300 Output Total 200 / 200 100 / 100 Balance -200 / -200 100 / 100 200 / 200 Microbiology Past 72 Hours 01/24/19 07:20 Urine Culture - Final Urine, Clean Catch Mixed Gram Positive Organisms Laboratory Tests Past 24 Hrs 01/26/19 01/26/19 05:50 05:50 WBC 4.3 L RBC 3.42 L Hgb 10.5 L Hct 34.4 L MCV 100.6 H MCH 30.7 MCHC 30.5 L RDW 16.4 H RDW Differential 57.6 H Plt Count 96 L MPV 9.5 Sodium 137 Potassium 3.9 Chloride 100 Carbon Dioxide 26.0 Anion Gap 11 BUN 24 H Creatinine 4.66 H Estim Creat Clear Calc 10.18 Est GFR (MDRD) Af Amer 16 L Est GFR (MDRD) Non-Af 13 L BUN/Creatinine Ratio 5.2 L Glucose 71 L Calcium 10.9 H Magnesium 2.1 Medical Necessity - Tobacco Use Smoking Status: Former smoker Tobacco Use: Cigarettes Assessment/Plan All Active Problems (Last Reviewed 01/24/19 @ 05:59 by Al Gatica MD) Problem with dialysis access (Acute) Hypercalcemia (Acute) SIRS (systemic inflammatory response syndrome) (Resolved) Acute viral bronchitis (Acute) Generalized weakness (Acute) Generalized weakness (Acute) Transient expressive aphasia (Resolved) Near syncope (Resolved) Hypotension (Resolved) 1- ESRD on MWF. Pt goes to [facility]. Dr. Cabrera is his teletypesetter monitor HD access : LUE AVF Will be dialyzed today. We will use 2 calcium dialysate 2- Hypercalcemia: Not on active VD. Not on Calcium supplement. I have discussed the case with Dr. Cabrera who did outpatient work up which revealed + serum light chain for which he was referred to oncology clinic. Patient has appointment coming with the oncology clinic on February 17 Calcium level improved with dialysis. We will continue to use low calcium dialysate 3- Anemia: Hgb 10.5 No need for DEAN. Will continue to monitor Hgb level 4- BMD: On sevelamer. Avoid Ca based phosphorus binder 5- Fall. PT.OT as per the primary service Renal team will continue to follow Please call with any question or concern Adrian Cosme MD [phone]
--- NOTE | 2019-01-26 14:15 | NURSING ---
REVIEWED STUDENT NURSES CHARTING FOR EDUCATIONAL LEARNING PURPOSES. BY FRANCIS MAHAN
[2019-01-26] MEDS: Heparin 10,000 UNITS/10 ML Vial 4000 UNITS IV (14:45)
[2019-01-26 15:19] LABS: HEPATITIS B SURFACE AG Negative (Negative)
[2019-01-26] MEDS: Ferrous Sulfate 325 MG Tablet PO (23:56)
[2019-01-26] MEDS: Pantoprazole Sodium 40 MG Tablet PO (23:56)
[2019-01-26] MEDS: Metoprolol Tartrate 50 MG Tablet PO (23:57)
[2019-01-26] MEDS: Heparin Injection (Vial) 5,000 UNIT/ML VIAL 5000 UNIT SC (23:57)
[2019-01-26] MEDS: Tamsulosin HCl 0.4 MG Capsule PO (23:58)
[2019-01-27 01:59] VITALS: PULSE 58
[2019-01-27 04:32] VITALS: BP 136/58; PULSE 61; RESP 14; TEMP 37.1; O2SAT 96
[2019-01-27 06:51] LABS: Hematocrit 34.4 % (40-54); Hemoglobin 10.7 g/dl (13.0-16.5); Mean Corp Hgb Conc 31.1 g/gl (32-36); Mean Corpuscular Hgb 31.2 pg (27.0-32.0); Mean Corpuscular Volume 100.3 fL (80-94); Mean Platelet Vol. 9.4 fl (6.2-12.0); Platelet Count 100 K/mm3 (150-450); RBC Distribution Width CV 16.5 % (11.6-14.6); Red Blood Count 3.43 M/mm3 (4.6-6.2); White Blood Count 4.5 K/mm3 (4.4-11.0)
[2019-01-27 06:56] LABS: Scan Indicated on CBC? Y/N NO
[2019-01-27 07:04] LABS: Anion Gap 8 (5-15); BUN 13 mg/dL (7-18); BUN/Creat Ratio 4.1 RATIO (10-20); Calcium,Total 9.6 mg/dL (8.5-10.1); Chloride 99 mmol/L (98-107); Creatinine, Serum 3.14 mg/dL (0.70-1.30); EST Glomerular Filtration Rate 20 mL/min (>60); Est Glom Filt Rate - Afr Amer 25 mL/min (>60); Glucose 89 mg/dL (74-106); Potassium 3.2 mmol/L (3.5-5.1); Sodium Level 136 mmol/L (136-145)
[2019-01-27 08:00] VITALS: PULSE 69
[2019-01-27 09:15] VITALS: BP 109/46; PULSE 70; RESP 16; TEMP 36.6; O2SAT 96
[2019-01-27] MEDS: Tamsulosin HCl 0.4 MG Capsule PO (09:15)
[2019-01-27] MEDS: SEVELAMER CARBONATE 800 MG TABLET PO (09:15)
[2019-01-27] MEDS: Pantoprazole Sodium 40 MG Tablet PO (09:15)
[2019-01-27 09:16] VITALS: PULSE 70
[2019-01-27] MEDS: Ferrous Sulfate 325 MG Tablet PO (09:16)
[2019-01-27] MEDS: Metoprolol Tartrate 50 MG Tablet PO (09:16)
[2019-01-27] MEDS: Menthol/Lanolin/Calamine/Znox 113 GM Tube 1 APPLIC TOPICAL (09:16)
[2019-01-27] MEDS: Heparin Injection (Vial) 5,000 UNIT/ML VIAL 5000 UNIT SC (09:16)
--- NOTE | 2019-01-27 10:09 | PCM.TXEXTCAR ---
- Diet 01/24/19 06:44 Diet: Renal: 60 gm protein - Wound(s) HEAD Wound Type: Abrasion - Therapies Physical Therapy: Eval and Treat Occupational Therapy: Eval and Treat - Allergies/Procedures Done in Hospital Allergies/Adverse Reactions: Allergies Sulfa (Sulfonamide Antibiotics) Allergy (Severe, Verified 01/24/19 02:05) Hives - Type of Care/Length of Stay Estimated LOS: Convalescent Care Less Than 30 days Type of Care Needed: Skilled Rehab Potential: Fair Prognosis: Fair - Additional Orders/Day of Discharge Day of Discharge: 01/27/19 - Dietary and Speech Recommendations Dietitian Recommendations/Changes: Recommend liberalize to regular diet (consistency 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 Once adequate PO intake is established, recommend change to 1800 calorie/Renal -- as protein restricted diet not warrented while pt receiving dialysis. Will d/c Nepro d/t pt refusal. Will add ONS at meals to provide extra nutrition if consumed. - Follow Up Care Primary Care Physician: Dona Santiago MD [Primary Care Provider] - Please follow up with your Primary Care Physician in: in 1-2 weeks Please Follow Up With: Adrian Cosme MD When: for dialysis
--- NOTE | 2019-01-27 10:14 | DS.PCM_ITS ---
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 Electronically Signed: Tiburcio Power, at 3:52 EDT Tel , Service support , Chest X-Ray 01/24/19 03:19 IMPRESSION: Degenerative changes, as described above. No demonstrated acute cardiopulmonary process. Electronically Signed: Tiburcio Power, at 3:56 EDT Tel , Service support , Bone Osseous Survey 01/25/19 09:33 IMPRESSION: There is NO evidence of acute bony abnormality. There are NO fractures. There is NO lytic or blastic bone lesion. Electronically Signed: Kevin Dennis MD at 5:48 EDT , Service support , Operations: None, TURP Summary of Care Provided: Patient is an 79-year-old gentleman with multiple comorbidities including end- stage renal disease Wednesdays and Fridays who presented with recurrent falls. Patient had also been referred to oncology on account of hypercalcemia he was apparently diagnosed with light chain disease 1. Physical deconditioning with recurrent falls admitted to regular nursing floor requested for PT OT eval and treatment . Case management consulted patient was transferred to custodial facility once insurance preset education was obtained 2. End-stage renal disease on hemodialysis on Wednesdays consult placed to nephrology for dialysis orders patient was seen in consultation by nephrology Dr. Hill Case discussed with him 3. Hypercalcemia. Patient was apparently referred to Dr. 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 Hypocalcemia resolved with dialysis 4. Anemia secondary to anemia of end-stage renal disease monitoring H&H with plans to transfuse if patient becomes symptomatic or hemoglobin falls below 7 5. History of melanoma involving the back for which he underwent excision and apparently has recurrent disease on the scalp 6. BPH is on tamsulosin did continue 7. Hypertension-blood pressure controlled, home medications continued with dose adjustment as needed 8. DVT prophylaxis-placed on heparin Patient Problems: Active and Suspected Problems (Last Reviewed 01/24/19 @ 05:59 by Al Gatica MD) Hypercalcemia (Acute) Generalized weakness (Acute) Objective: GENERAL: cooperative HEENT: Atraumatic; EYES; Anicteric, Normal Conjunctiva NECK; supple, normal thyroid, RESPIRATORY: Diminished to auscultation bilaterally, CARDIOVASCULAR: Regular S1 S2, NEURO: Awake; no lateralizing signs. SKIN: No Rash PSYCH; flat affect - Physical Exam Vital Signs Temp Pulse Resp BP Pulse Ox 97.8 F 70 16 109/46 L 96 01/27/19 09:15 01/27/19 09:16 01/27/19 09:15 01/27/19 09:15 01/27/19 09:15 Oxygen Flow Rate (L/min) 2 Oxygen Delivery Method Room Air Weight: 87.8 kg Body Mass Index (BMI) 35.0 Finger Stick Blood Glucose 116 Intake and Output for Last 24 Hours 01/25/19 01/26/19 01/27/19 23:59 23:59 23:59 Intake Total 100 / 100 540 / 540 500 / 500 Output Total 200 / 200 Balance 100 / 100 340 / 340 500 / 500 Microbiology Past 72 Hours 01/24/19 07:20 Urine Culture - Final Urine, Clean Catch Mixed Gram Positive Organisms Laboratory Tests Past 24 Hrs 01/24/19 01/27/19 01/27/19 02:24 06:06 06:06 WBC 4.5 RBC 3.43 L Hgb 10.7 L Hct 34.4 L MCV 100.3 H MCH 31.2 MCHC 31.1 L RDW 16.5 H RDW Differential 57.0 H Plt Count 100 L MPV 9.4 Sodium 136 Potassium 3.2 L Chloride 99 Carbon Dioxide 29.0 Anion Gap 8 BUN 13 Creatinine 3.14 H Estim Creat Clear Calc 15.10 Est GFR (MDRD) Af Amer 25 L Est GFR (MDRD) Non-Af 20 L BUN/Creatinine Ratio 4.1 L Glucose 89 Calcium 9.6 Hep Bs Antigen Negative Discharge Diet: Renal Diet Home Medications: Medications to take at Discharge Sennosides/Docusate Sodium [Docusate Sodium-Senna Tablet] 1 ea PO PRN PRN 08/07/16 Tamsulosin HCl [Flomax] 0.4 mg PO BID 10/23/16 Metoprolol Tartrate [Lopressor (beta keila)] 50 mg PO BID tab 11/03/16 Midodrine HCl [Proamatine] 10 mg PO TID 06/17/18 Sevelamer HCl [Renagel] 800 mg PO TIDCM 06/17/18 Nepro Liquid [Nepro Carb Steady] 120 ml PO BID 06/30/18 Ferrous Sulfate 325 mg PO BIDCM #60 tab 07/02/18 Pantoprazole Sodium [Protonix] 40 mg PO BID #60 tab 07/02/18 Acetaminophen [Tylenol Tablet] 650 mg PO Q6H PRN PRN tab 09/16/18 Menthol/Lanolin/Calamine/Znox [Calmoseptine Ointment] 1 applic TOPICAL 4X/DAY tube 09/16/18 Bmx Liquid 5 ml PO Q4H PRN PRN 01/24/19 Ondansetron [Zofran Odt] 4 mg PO Q6H PRN PRN 01/24/19 Magnesium Hydroxide [Milk Of Magnesia] 30 ml PO DAILY PRN PRN udc 01/27/19 Oxycodone [Oxyir] 5 mg PO Q8H PRN PRN #9 tab 01/27/19 Following Prescrptions Were Given to Patient: Oxycodone [Oxyir] 5 mg PO Q8H PRN PRN #9 tab PRN Reason: Pain Primary Care Physician: Dona Santiago MD [Primary Care Provider] - Please follow up with your Primary Care Physician in: in 1-2 weeks Please Follow Up With: Adrian Cosme MD When: for dialysis Disposition: [facility] facility Minutes spent on discharge:: 40 Patient Condition:: Stable Medical Necessity - Tobacco Use Smoking Status: Former smoker Tobacco Use: Cigarettes Meaningful Use Info Meaningful Use Diagnoses (Choose all that apply): None applicable Code Visit Inpatient E&M: 65438 Disch Hosp
--- NOTE | 2019-01-27 10:31 | NURSING ---
attempted to call report to [facility] for discharge x3. unable to speak with RN at this time. message left with steam clean machine operator with this RN's name/number to call report when out of meeting. steam clean machine operator notified that patient would be picked up around 1200 for discharge.
--- NOTE | 2019-01-27 10:41 | CASEMGMT ---
Addendum entered by Reba Alcantara 01/27/19 11:39: Pt was transported to [facility] [place]. SW placed a call to pt's Phyllis and spoke with her and updated her that pt is in transport to [facility] [place]. Phyllis states understanding. Original Note: Social Work Note Pt is discharging to [facility] [place] today. JUAN faxed completed discharge paperwork to Amarilis at [facility] [place] including transfer to extended care facility, signed medication list and any scripts. Originals in SNF folder and copy on pt's chart. JUAN completed [facility]escent [facility] in [facility]. Originals in SNF folder and copy on pt's chart. Chess Instructor Bhumi arranged for transportation through [facility] for 12:00pm. JUAN completed transportation form. Transportation form on SNF folder and copy on pt's chart. SW attempted to update pt on transportation time. Pt soundly sleeping. SW attempted to call pt's Phyllis but voicemail is full and SW unable to leave message. JUAN called Amarilis at [facility] [place] and updated her on transportation time. Plan: Pt to discharge to [facility] [place] skilled today Reba Alcantara WEIGH MACHINE OPERATOR, MARKET RESEARCHER
--- NOTE | 2019-01-27 11:36 | NURSING ---
attempted to call [facility] at time of discharge for report. boiler/chiller operator at [facility] attempted to transfer to RN at [facility] without answer. information to reach this RN left with boiler/chiller operator with previous attempt.
--- NOTE | 2019-01-27 12:57 | PCM.PN.REN ---
Patient Problems: Active and Suspected Problems (Last Reviewed 01/24/19 @ 05:59 by Al Gatica MD) Hypercalcemia (Acute) Generalized weakness (Acute) Subjective: No acute event. Patient tolerated yesterday hemodialysis session well - Physical Exam General: Alert HEENT: Atraumatic Oral: Moist Mucosa Neck: Supple, No JVD Lungs: Clear to auscultation, Normal air movement, No rhonchi, No wheeze Cardiovascular: Regular rate, Regular Rhythm, Normal S1, Normal S2 Abdomen: Bowel Sounds Present, Soft, Non Tender, Non-Distended Extremities: No clubbing, No cyanosis, No edema Skin: No rashes Musculoskeletal: No Tenderness to Palpation of Joints or Extremities Neurological: Neuro grossly intact Psych/Mental Status: Appropriate Vital Signs Temp Pulse Resp BP Pulse Ox 97.8 F 70 16 109/46 L 96 01/27/19 09:15 01/27/19 09:16 01/27/19 09:15 01/27/19 09:15 01/27/19 09:15 Oxygen Flow Rate (L/min) 2 Oxygen Delivery Method Room Air Weight: 87.5 kg Body Mass Index (BMI) 35.0 Finger Stick Blood Glucose 116 Intake and Output for Last 24 Hours 01/25/19 01/26/19 01/27/19 23:59 23:59 23:59 Intake Total 100 / 100 540 / 540 500 / 500 Output Total 200 / 200 Balance 100 / 100 340 / 340 500 / 500 Microbiology Past 72 Hours 01/24/19 07:20 Urine Culture - Final Urine, Clean Catch Mixed Gram Positive Organisms Laboratory Tests Past 24 Hrs 01/24/19 01/27/19 01/27/19 02:24 06:06 06:06 WBC 4.5 RBC 3.43 L Hgb 10.7 L Hct 34.4 L MCV 100.3 H MCH 31.2 MCHC 31.1 L RDW 16.5 H RDW Differential 57.0 H Plt Count 100 L MPV 9.4 Sodium 136 Potassium 3.2 L Chloride 99 Carbon Dioxide 29.0 Anion Gap 8 BUN 13 Creatinine 3.14 H Estim Creat Clear Calc 15.10 Est GFR (MDRD) Af Amer 25 L Est GFR (MDRD) Non-Af 20 L BUN/Creatinine Ratio 4.1 L Glucose 89 Calcium 9.6 Hep Bs Antigen Negative Medical Necessity - Tobacco Use Smoking Status: Former smoker Tobacco Use: Cigarettes Assessment/Plan All Active Problems (Last Reviewed 01/24/19 @ 05:59 by Al Gatica MD) Problem with dialysis access (Acute) Hypercalcemia (Acute) SIRS (systemic inflammatory response syndrome) (Resolved) Acute viral bronchitis (Acute) Generalized weakness (Acute) Generalized weakness (Acute) Transient expressive aphasia (Resolved) Near syncope (Resolved) Hypotension (Resolved) 1- ESRD on MWF. Pt goes to [facility]. 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 No need for hemodialysis session today. He will be tomorrow 2- Hypercalcemia: Not on active VD. Not on Calcium supplement. I have discussed the case with Dr. Cabrera who did outpatient work up which revealed + serum light chain for which he was referred to oncology clinic. Patient has appointment coming with the oncology clinic on February 17 Calcium level lysed with dialysis. We will continue to use low calcium dialysate 3- Anemia: Hgb 10.5 No need for DEAN. Will continue to monitor Hgb level 4- BMD: On sevelamer. Avoid Ca based phosphorus binder 5- Fall. PT.OT as per the primary service Renal team will continue to follow Please call with any question or concern Adrian Cosme MD [phone]
== END 2019-01-27 11:30 | disposition skilled nursing facility (03) | DRG 947 ==
LOC: ED 04:57 → MS3 05:51
PROVIDERS: Internal Medicine Nephrology; Admitting Provider Hospitalist; Emergency Provider Emergency Medicine; Family Provider Internal Medicine; PCP Internal Medicine; Visit Provider Internal Medicine
DX: R53.1 Weakness (principal); N18.6 End stage renal disease; I12.0 Hypertensive chronic kidney disease with stage 5 chronic kidney disease or end stage renal disease; C79.2 Secondary malignant neoplasm of skin; E83.52 Hypercalcemia; D63.1 Anemia in chronic kidney disease; N40.0 Benign prostatic hyperplasia without lower urinary tract symptoms; Z99.2 Dependence on renal dialysis; E66.01 Morbid (severe) obesity due to excess calories; Z68.35 Body mass index [BMI] 35.0-35.9, adult; R29.6 Repeated falls; Z85.820 Personal history of malignant melanoma of skin; Z87.891 Personal history of nicotine dependence
CPT/HCPCS: 36415; 70450; 71045; 77075; 80048; 80053; 81001; 82607; 83735; 85025; 85027; 85610; 85730; 87086; 87088; 87340; 90937; 92610; 93005; 97110; 97162; 97166; 97530; 97802; 99284; J1756; J7030; J7040; A4216; G0257

== ENCOUNTER 2019-08-12 11:27 | Inpatient (IN) | payer MEDICARE, OTHER, SELFPAY ==
[2019-01-24 06:44] VITALS: BMI 35.0
[2019-08-12] VITALS (9 sets, daily range): BP systolic 120–143; BP diastolic 69–94; PULSE 80–107; RESP 16–20; TEMP 36.6–37.2; O2SAT 89–99; BMI 36.0; BMI 36.1; BMI 36.2
--- NOTE | 2019-08-12 11:43 | RAD_ITS ---
STUDY: X-RAY CHEST REASON FOR EXAM: Male, 79 years old. Shortness of breath, fever and increased weakness. TECHNIQUE: AP upright portable view. COMPARISON: 01/24/2019. FINDINGS: Mild pulmonary hypoinflation. Moderate right pleural fluid. Ill-defined infiltrate in both lung bases. CT chest will help clarify. No left pleural fluid. Normal size heart. Normal mediastinum and marcia. No definite pulmonary vascular redistribution. Normal visualized aortic arch and descending thoracic aorta. Normal visualized thoracic spine. Normal visualized ribs, clavicles, and shoulders. There is no demonstrated abnormality of the visualized soft tissue structures of the upper abdomen. RAD/Chest 1 View (Portable) IMPRESSION: Moderate right pleural fluid and suspicious bibasilar interstitial infiltrates. Deeper inspiratory chest and lateral view will help clarify. If patient is unable to take deeper inspiratory effort, CT chest will be more helpful for further evaluation. Electronically Signed: Chapin Chiang MD at 11:58 EDT , Service support ,
--- NOTE | 2019-08-12 11:43 | EKG12_ITS ---
Test Reason : WEAKNESS Blood Pressure : / mmHG Vent. Rate : 097 BPM Atrial Rate : 097 BPM P-R Int : 184 ms QRS Dur : 076 ms QT Int : 354 ms P-R-T Axes : 002 -06 028 degrees QTc Int : 449 ms Wandering Atrial Pacemaker Rhythm Inferior infarct , age undetermined Abnormal ECG Confirmed by TACHO PUCKETT, ANTONIETA ([id number]), legal editor ASMITA KELLY ([id number]) on 08/17/2019 12:00:59 PM Referred By: Amanda Castillo Confirmed By:ANTONIETA TITUS MD
[2019-08-12 12:20] LABS: ALB/GLOB Ratio 0.7 RATIO (0.9-2.4); AST(SGOT) 18 U/L (15-37); Absolute Lymphocyte Count 0.49 X10^3/uL (0.83-4.51); Absolute Neutrophil Count 8.4 X10^3/uL (2.0-7.7); Alanine Aminotransfer ALT/SGPT 11 U/L (16-61); Albumin, Serum 2.5 g/dL (3.2-5.0); Alkaline Phosphatase 96 U/L (45-117); Anion Gap 8 (5-15); BUN 19 mg/dL (7-18); BUN/Creat Ratio 3.9 RATIO (10-20); Basophil# 0.03 X10^3/uL; Basophil% 0.3 % (0-1); Calcium,Total 11.8 mg/dL (8.5-10.1); Chloride 99 mmol/L (98-107); Creatinine, Serum 4.87 mg/dL (0.70-1.30); EST Glomerular Filtration Rate 12 mL/min (>60); Eosinophil# 0.01 X10^3/uL; Eosinophils% 0.1 % (0-5); Est Glom Filt Rate - Afr Amer 15 mL/min (>60); Estimated Creatinine Clearance 9.34 ml/min; Globulin 3.8 g/dL (2.2-4.2); Glucose 124 mg/dL (74-106); Hematocrit 37.6 % (40-54); Hemoglobin 11.9 g/dL (13.0-16.5); International Normalized Ratio 1.2; Lymphocyte # 0.49 X10^3/ul (4.0); Lymphocyte % 4.9 % (19-41); Mean Corp Hgb Conc 31.6 g/dL (32-36); Mean Corpuscular Hgb 30.2 pg (27.0-32.0); Mean Corpuscular Volume 95.4 fL (80-94); Mean Platelet Vol. 8.8 fl (6.2-12.0); Monocyte% 9.1 % (0-10); NRBC Flagged by Analyzer 0 % (0-5); Neutrophil # 8.39 X10^3/uL (2.7-7.7); Neutrophil % 84.8 % (47-70); POSITIVE DIFFERENTIAL YES; Partial Thromboplast Time 28.1 Seconds (24.1-36.2); Platelet Count 150 K/mm3 (150-450); Potassium 3.6 mmol/L (3.5-5.1); Protein, Total 6.3 g/dL (6.4-8.2); Prothrombin Time (Protime)PT. 15.2 SECONDS (11.7-14.9); RBC Distribution Width CV 14.2 % (11.6-14.6); RBC Distribution Width SD 49.8 fl (35.1-43.9); Red Blood Count 3.94 M/mm3 (4.6-6.2); Sodium Level 135 mmol/L (136-145); White Blood Count 9.9 K/mm3 (4.4-11.0)
[2019-08-12 12:21] LABS: Differential Indicated SCAN CRITERIA MET
[2019-08-12] MEDS: Acetaminophen 500 MG Tablet 1000 MG PO (12:24)
--- NOTE | 2019-08-12 12:35 | ED.DCSUM_ITS ---
History of Present Illness Chief Complaint: Weakness Informant: Patient Onset: Days Context: Gradual Onset Timing: Continuous Current Severity: Moderate Maximum Severity: Moderate Narrative: The patient presents to the emergency department shortness of breath, fever, generalized weakness. The patient does have a history of end-stage renal disease. He is on dialysis Thursday, Thursday, and Thursday. He was unable to make his appointment today because of his symptoms. He went to his primary care office. There he had a T-max of 100.6. He states he is just been more short of breath over the past few days and has been having myalgias and arthralgias. He has had a scant cough. He denies any history of underlying lung disease. He denies any chest pain or orthopnea. Prior similar symptoms: No Recent Illness/Hospitalization: No Past Medical History - Allergies and Home Meds Allergies/Adverse Reactions: Allergies Sulfa (Sulfonamide Antibiotics) Allergy (Severe, Verified 08/12/19 11:27) Caroline Primary Care Physician: Dona Santiago MD [Primary Care Provider] - Prior records reviewed: Yes Past Medical History: - Surgical History: colectomy, herniorrhaphy, - - Bowel resection secondary to bowel obstruction w/ ventral hernia repair, AVF, R TKR, TURP. Melanoma resection. Smoking Status: Former smoker - Family History Maternal Family History: Reports: - - Unknown Paternal Family History: Reports: Heart Disease, - Review of Systems General: Reports: Fever Eyes: Denies: Visual changes - bilaterally, Diplopia ENT: Denies: Rhinorrhea, Sore throat Cardiovascular: Denies: Chest pain, Palpitations Respiratory: Reports: Dyspnea, Cough Gastrointestinal: Denies: Abdominal pain, Nausea, Vomiting, Diarrhea, Melena, Hematochezia Genitourinary: Denies: Dysuria, Hematuria, Frequency Musculoskeletal: Denies: Back pain, Extremity Pain Skin: Denies: Rash, Wounds Neurological: Denies: Headache, Weakness, Numbness Physical Exam Vital Signs/Narrative: Vital Signs Temp Pulse Resp BP Pulse Ox 08/12/19 12:32 98.8 F 103 H 18 143/75 H 97 08/12/19 11:28 98.8 F 106 H 19 H 121/73 H 89 08/12/19 11:27 98.8 F 107 H 19 H 121/73 H 89 Inital Vital Signs reviewed: Yes General: Well nourished, Well developed, No Acute Distress Head: Normocephalic, Atraumatic Eyes: Perrl, EOMI ENT: Moist mucous membranes, No rhinorrhea Neck: Supple, Nontender Cardiovascular: Regular rate, Regular rhythm, No murmurs Respiratory: No distress, Chest nontender, Rales, Diminished Abdomen: Soft, Nontender, Nondistended, Normal bowel sounds Back: Nontender, Normal Inspection Extremities: Nontender, No edema Skin: Normal color, No rash Neurological: Alert, Oriented x3, Cranial nerves II-XII grossly intact, Normal Strength, Normal Sensation Psychological: Normal affect, Normal Mood Diagnostic/Tx/Re-eval Chest X-Ray - ED: 1 View, Right Infiltrate, Right Effusion Clinical Impression(s) from Imaging Studies Chest X-Ray 08/12/19 11:43 IMPRESSION: Moderate right pleural fluid and suspicious bibasilar interstitial infiltrates. Deeper inspiratory chest and lateral view will help clarify. If patient is unable to take deeper inspiratory effort, CT chest will be more helpful for further evaluation. Electronically Signed: Chapin Chiang MD at 11:58 EDT , Service support , Abnormal Lab Results 08/12/19 08/12/19 08/12/19 11:55 11:55 11:55 WBC 9.9 RBC 3.94 L Hgb 11.9 L Hct 37.6 L MCV 95.4 H MCH 30.2 MCHC 31.6 L RDW Std Deviation 49.8 H RDW Coeff of Cari 14.2 Plt Count 150 MPV 8.8 Immature Gran % (Auto) 0.800 Neut % (Auto) 84.8 H Lymph % (Auto) 4.9 L [place] % (Auto) 9.1 Eos % (Auto) 0.1 Baso % (Auto) 0.3 Absolute Neuts (auto) 8.4 H Absolute Lymphs (auto) 0.49 L Nucleated RBC % 0 PT 15.2 H INR 1.2 APTT 28.1 Sodium 135 L Potassium 3.6 Chloride 99 Carbon Dioxide 28.0 Anion Gap 8 BUN 19 H Creatinine 4.87 H Estim Creat Clear Calc 9.34 Est GFR (MDRD) Af Amer 15 L Est GFR (MDRD) Non-Af 12 L BUN/Creatinine Ratio 3.9 L Glucose 124 H Lactic Acid Calcium 11.8 H Total Bilirubin 0.70 AST 18 ALT 11 L Alkaline Phosphatase 96 Total Protein 6.3 L Albumin 2.5 L Globulin 3.8 Albumin/Globulin Ratio 0.7 L 08/12/19 11:55 WBC RBC Hgb Hct MCV MCH MCHC RDW Std Deviation RDW Coeff of Cari Plt Count MPV Immature Gran % (Auto) Neut % (Auto) Lymph % (Auto) [place] % (Auto) Eos % (Auto) Baso % (Auto) Absolute Neuts (auto) Absolute Lymphs (auto) Nucleated RBC % PT INR APTT Sodium Potassium Chloride Carbon Dioxide Anion Gap BUN Creatinine Estim Creat Clear Calc Est GFR (MDRD) Af Amer Est GFR (MDRD) Non-Af BUN/Creatinine Ratio Glucose Lactic Acid 1.8 Calcium Total Bilirubin AST ALT Alkaline Phosphatase Total Protein Albumin Globulin Albumin/Globulin Ratio - Rhythm Strip Rhythm Strip: Sinus Rhythm Rate: 80 Ectopy: PAC(s) - EKG Initial EKG Interpretation: No Acute Injury Pattern, Sinus Arrythmia Prior: Unchanged - Medical Decision Making The patient presents to the emergency department cough and shortness of breath. The patient does have a history of end-stage renal disease and is on dialysis. He does have crackles in his right lung base and is requiring supplemental oxygen. Sepsis work-up was pursued. Chest x-ray does show right-sided effusion and likely right infiltrate. Screening labs are relatively unremarkable. However given the patient's advanced age, evidence of infectious process, and hypoxemia I do feel that he is going to require admission. Patient was discussed with the hospitalist. Impression 1. Right lower lobe pneumonia 2. Hypoxia ED Disposition - Plan for ED Patient: Referrals: Dona Santiago MD [Primary Care Provider] -
[2019-08-12 12:49] LABS: Lactic Acid 1.8 mmol/L (0.4-2.0)
--- NOTE | 2019-08-12 13:04 | ED.RN ---
PT ATTEMPTED TO URINATE AND WAS UNABLE. DIALYSIS PT. MADE AWARE.
[2019-08-12 13:19] LABS: Platelet Estimate ADEQUATE (ADEQ); Red Cell Morphology NORM C+C NORMAL (NORM C&C)
--- NOTE | 2019-08-12 13:31 | HP.PCM_ITS ---
History of Present Illness Date of Admission: 08/12/19 Chief Complaint: shortness of breath, generalised weakness The patient is a 79 year old M with a past medical history as listed. He was admitted through the ED on 08/12/2019 with a complaint of generalized weakness and shortness of breath. says symptoms have been going on for a few days especially the weakness will gradually worsened until today where he could not even go to dialysis because of the severe weakness. He had also been short of breath but he peaked today. He said he had been coughing and cough was productive which cannot tell the color. She denied him having any fever at home but states when he came to the ED he was noted to be febrile. He had no assisted palpitations, chest pain, abdominal pain, nausea, diarrhea vomiting. Review of systems is otherwise negative. Patient was quite lethargic so history was taken from his . In the ED, he was noted to be tachycardic with heart rate at 106 and respiratory rate was 19. He was afebrile from ED records and was saturating at 99% on 2 L of oxygen. He had been at 89% on room air on admission. Chemistry showed sodium of 135 and creatinine of 4.87 as well as lactic acid of 1.8. CBC showed white cell count of 9.9. Chest x-ray showed right moderate pleural fluid and suspicious bibasilar interstitial infiltrates. He has been admitted to be managed for acute hypoxic respiratory insufficiency due to community acquired pneumonia. He was started on IV vancomycin and zosyn in the ED. 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) Morbid obesity (Chronic) E66.01 Benign prostatic hypertrophy (Chronic) N40.0 Hypertension (Chronic) I10 Nephrotic syndrome (Chronic) N04.9 Allergies Sulfa (Sulfonamide Antibiotics) Allergy (Severe, Verified 08/12/19 11:27) Hives Home Medications: Ambulatory Orders Medication Instructions Recorded Tamsulosin HCl [Flomax] 0.4 mg PO BID 10/23/16 Midodrine HCl [Proamatine] 10 mg PO MOWEFR 06/17/18 Nepro Liquid [Nepro Carb Steady] 120 ml PO BID 06/30/18 Acetaminophen [Tylenol Tablet] 650 mg PO Q6H PRN PRN tab 09/16/18 Bmx Liquid 5 ml PO Q4H PRN PRN 01/24/19 Ondansetron [Zofran Odt] 4 mg PO Q6H PRN PRN 01/24/19 Oxycodone [Oxyir] 5 mg PO Q8H PRN PRN #9 tab 01/27/19 Furosemide [Lasix] 80 mg PO BID 08/12/19 Sevelamer Carbonate [Renvela] 1,600 mg PO TID 08/12/19 Surgical History: Surgical History (Last Reviewed 01/24/19 @ 05:59 by Al Gatica MD) 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 Melanoma resection. Psychiatric History: No pertinent psych hx Smoking Status: Former smoker Alcohol: None Drugs: None - *Family History Maternal History Items: - - Unknown Paternal History Items: Heart Disease, - Review of Systems Constitutional: Reports: Chills, Malaise, Weakness, Fatigue. Denies: Anorexia, Fever Eyes: Denies: Blurred vision HEENT: Denies: Head Aches, Sinus Congestion, Sinus Drainage Cardiovascular: Denies: Chest Pain, Heaviness, Light Headedness, Orthopnea, Palpitations Respiratory: Reports: Cough, Shortness of Breath, Shortness of breath at rest, Shortness of breath upon exertion, Sputum production. Denies: Wheezing Gastrointestinal: Denies: Abdominal Pain, Nausea, Vomiting Genitourinary: Denies: Dysuria Musculoskeletal: Denies: Joint Pain, Joint Tenderness Skin: Denies: Rash, Wounds Neurological: Denies: Numbness, Tingling, Focal weakness Psychiatric: Denies: Anxiety, Depression, Homicidal Ideations, Suicidal Ideations Hematologic/ Lymphatic: Denies: Easy Bruising, Easy Bleeding VTE Information - Inpt Only VTE Present on Admission: No VTE Pharm Prophylaxis ordered?: Yes - Physical Exam General: Cooperative, No apparent distress, Lethargic HEENT: Atraumatic, PERRLA, EOMI, Normocephalic Oral: Dry Mucosa Neck: Supple, No JVD, Negative Carotid Bruits Lungs: - - markedly decreased breath sounds in right mid and lower lung baer, no crackles. on 2L of oxygen Cardiovascular: Regular rate, Regular Rhythm, Normal S1, Normal S2, No murmurs Abdomen: Bowel Sounds Present, Soft, Non Tender, Non-Distended, No Hepato- splenomegaly Extremities: No clubbing, No cyanosis, No edema, Capillary Refill Less than 3 Seconds Skin: No rashes, No breakdown Musculoskeletal: No Tenderness to Palpation of Joints or Extremities, - - AV fistula with palpable thrill in LUE Lymphatic: No Cervical, Supraclavicular, or Inguinal Adenopathy Neurological: Cranial nerves II-XII grossly intact Psych/Mental Status: Normal Affect, Appropriate Vital Signs Temp Pulse Resp BP Pulse Ox 98.8 F 95 18 128/75 H 99 08/12/19 12:32 08/12/19 13:03 08/12/19 13:03 08/12/19 13:03 08/12/19 13:03 Oxygen Flow Rate (L/min) 2 Oxygen Delivery Method Nasal Cannula Weight: 197 lb 1.492 oz Body Mass Index (BMI) 36.0 Finger Stick Blood Glucose 116 Laboratory Tests Past 24 Hrs 08/12/19 08/12/19 08/12/19 11:55 11:55 11:55 WBC 9.9 RBC 3.94 L Hgb 11.9 L Hct 37.6 L MCV 95.4 H MCH 30.2 MCHC 31.6 L RDW Std Deviation 49.8 H RDW Coeff of Cari 14.2 Plt Count 150 MPV 8.8 Immature Gran % (Auto) 0.800 Neut % (Auto) 84.8 H Lymph % (Auto) 4.9 L [place] % (Auto) 9.1 Eos % (Auto) 0.1 Baso % (Auto) 0.3 Absolute Neuts (auto) 8.4 H Absolute Lymphs (auto) 0.49 L Nucleated RBC % 0 Differential Comment Platelet Estimate ADEQUATE RBC Morphology NORM C+C PT 15.2 H INR 1.2 APTT 28.1 Sodium 135 L Potassium 3.6 Chloride 99 Carbon Dioxide 28.0 Anion Gap 8 BUN 19 H Creatinine 4.87 H Estim Creat Clear Calc 9.34 Est GFR (MDRD) Af Amer 15 L Est GFR (MDRD) Non-Af 12 L BUN/Creatinine Ratio 3.9 L Glucose 124 H Lactic Acid Calcium 11.8 H Total Bilirubin 0.70 AST 18 ALT 11 L Alkaline Phosphatase 96 Total Protein 6.3 L Albumin 2.5 L Globulin 3.8 Albumin/Globulin Ratio 0.7 L 08/12/19 11:55 WBC RBC Hgb Hct MCV MCH MCHC RDW Std Deviation RDW Coeff of Cari Plt Count MPV Immature Gran % (Auto) Neut % (Auto) Lymph % (Auto) [place] % (Auto) Eos % (Auto) Baso % (Auto) Absolute Neuts (auto) Absolute Lymphs (auto) Nucleated RBC % Differential Comment Platelet Estimate RBC Morphology PT INR APTT Sodium Potassium Chloride Carbon Dioxide Anion Gap BUN Creatinine Estim Creat Clear Calc Est GFR (MDRD) Af Amer Est GFR (MDRD) Non-Af BUN/Creatinine Ratio Glucose Lactic Acid 1.8 Calcium Total Bilirubin AST ALT Alkaline Phosphatase Total Protein Albumin Globulin Albumin/Globulin Ratio Diagnostic Data Chest X-Ray 08/12/19 11:43 IMPRESSION: Moderate right pleural fluid and suspicious bibasilar interstitial infiltrates. Deeper inspiratory chest and lateral view will help clarify. If patient is unable to take deeper inspiratory effort, CT chest will be more helpful for further evaluation. Electronically Signed: Chapin Chiang MD at 11:58 EDT , Service support , Assessment/Plan All Active Problems (Last Reviewed 01/24/19 @ 05:59 by Al Gatica MD) Problem with dialysis access (Acute) Hypercalcemia (Acute) SIRS (systemic inflammatory response syndrome) (Resolved) Acute viral bronchitis (Acute) Generalized weakness (Acute) Generalized weakness (Acute) Transient expressive aphasia (Resolved) Near syncope (Resolved) Hypotension (Resolved) 79-year-old male admitted with a complaint of shortness of breath and generalized malaise. 1. Acute hypoxic respiratory insufficiency due to community acquired pneumonia * Admit to PCU with telemetry * No elevation of white cell count. He was tachycardic and respiratory rate is 19. * blood cultures and sputum cultures. Urine for strep and Legionella and also check respiratory panel. * Chest x-ray showed moderate right pleural effusion and infiltrate. * Switch antibiotics to IV ceftriaxone and azithromycin. * Tylenol as needed for fever * Titrate oxygen to maintain saturation above 90%. * 2. Community-acquired pneumonia: As under 1. 3. ESRD: On hemodialysis on Wednesdays. Missed dialysis today on account of lethargy. Consult Dr. Casey for dialysis in hospital. 4. BPH : On Flomax. DVT prophylaxis: Lovenox renally dosed. Code status: Full code * Patient and counseled extensively about different types of CODE STATUS including full code, DNR CCA and DNR CCA. Patient elects to be full code. Total [id number] time 16 minutes. Code Visit Inpatient E&M: 64150 Init Hosp L3 Procedures: 21644 Advncd Care Plan 30 Min
--- NOTE | 2019-08-12 13:35 | NURSING ---
PCU ACUTE HYPOXIC RESP INSUFFICIENCY, PNEUMONIA KORAM
[2019-08-12] MEDS: Vancomycin IV 1,000 MG/200 ML BAG 200 MG IV (14:00)
--- NOTE | 2019-08-12 16:13 | CON.PCM_ITS ---
Problem List (1) ESRD (end stage renal disease) Status: Chronic Consultation - Renal 08/12/19 PCP/ Referring MD: Requesting physician: Dr Castillo Primary care physician: Dona Santiago MD Reason for Consultation:: ESRD - History of Present Illness History of Present Illness: The patient is a 79 year old M well known to us. ESRD on HD MWF schedule. last HD was thursday. presented with generalized weakness. diagnosed with pneumonia. 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 Melanoma resection. - Social History Smoking Status: Former smoker Alcohol: None Drugs: None - Family History Maternal History Items: - - Unknown Paternal History Items: Heart Disease, - Review of Systems Constitutional: Denies: Chills, Fever, Weight Change HEENT: Denies: Head Aches, Sinus Congestion, Sinus Drainage Cardiovascular: Denies: Chest Pain, Palpitations Respiratory: Denies: Cough, Shortness of breath at rest, Sputum production Gastrointestinal: Denies: Abdominal Pain, Nausea, Vomiting Genitourinary: Denies: Dysuria Musculoskeletal: Denies: Joint Pain, Joint Tenderness Skin: Denies: Rash, Wounds Neurological: Denies: Numbness, Tingling, Focal weakness Psychiatric: Denies: Anxiety, Depression, Homicidal Ideations, Suicidal Ideations Hematologic/ Lymphatic: Denies: Easy Bruising, Easy Bleeding - Physical Exam General: Alert, Oriented x3, Cooperative HEENT: Atraumatic, PERRLA, EOMI, Normocephalic Neck: Supple, No JVD, Negative Carotid Bruits Lungs: Clear to auscultation, Normal air movement Cardiovascular: Regular rate, No murmurs Abdomen: Bowel Sounds Present, Soft, Non Tender Extremities: No edema, Capillary Refill Less than 3 Seconds Skin: No rashes, No breakdown Musculoskeletal: No Tenderness to Palpation of Joints or Extremities Neurological: Cranial nerves II-XII grossly intact Psych/Mental Status: Normal Affect, Appropriate Vital Signs Temp Pulse Resp BP Pulse Ox 97.9 F 81 18 131/69 H 99 08/12/19 15:39 08/12/19 15:39 08/12/19 15:39 08/12/19 15:39 08/12/19 15:39 Oxygen Flow Rate (L/min) 2 Oxygen Delivery Method Nasal Cannula Weight: 86.8 kg Body Mass Index (BMI) 36.1 Finger Stick Blood Glucose 116 Intake and Output for Last 24 Hours 08/10/19 08/11/19 08/12/19 23:59 23:59 23:59 Intake Total 250 / 250 Balance 250 / 250 Laboratory Tests Past 24 Hrs 08/12/19 08/12/19 08/12/19 11:55 11:55 11:55 WBC 9.9 RBC 3.94 L Hgb 11.9 L Hct 37.6 L MCV 95.4 H MCH 30.2 MCHC 31.6 L RDW Std Deviation 49.8 H RDW Coeff of Cari 14.2 Plt Count 150 MPV 8.8 Immature Gran % (Auto) 0.800 Neut % (Auto) 84.8 H Lymph % (Auto) 4.9 L [place] % (Auto) 9.1 Eos % (Auto) 0.1 Baso % (Auto) 0.3 Absolute Neuts (auto) 8.4 H Absolute Lymphs (auto) 0.49 L Nucleated RBC % 0 Differential Comment Platelet Estimate ADEQUATE RBC Morphology NORM C+C PT 15.2 H INR 1.2 APTT 28.1 Sodium 135 L Potassium 3.6 Chloride 99 Carbon Dioxide 28.0 Anion Gap 8 BUN 19 H Creatinine 4.87 H Estim Creat Clear Calc 9.34 Est GFR (MDRD) Af Amer 15 L Est GFR (MDRD) Non-Af 12 L BUN/Creatinine Ratio 3.9 L Glucose 124 H Lactic Acid Calcium 11.8 H Total Bilirubin 0.70 AST 18 ALT 11 L Alkaline Phosphatase 96 Total Protein 6.3 L Albumin 2.5 L Globulin 3.8 Albumin/Globulin Ratio 0.7 L 08/12/19 11:55 WBC RBC Hgb Hct MCV MCH MCHC RDW Std Deviation RDW Coeff of Cari Plt Count MPV Immature Gran % (Auto) Neut % (Auto) Lymph % (Auto) [place] % (Auto) Eos % (Auto) Baso % (Auto) Absolute Neuts (auto) Absolute Lymphs (auto) Nucleated RBC % Differential Comment Platelet Estimate RBC Morphology PT INR APTT Sodium Potassium Chloride Carbon Dioxide Anion Gap BUN Creatinine Estim Creat Clear Calc Est GFR (MDRD) Af Amer Est GFR (MDRD) Non-Af BUN/Creatinine Ratio Glucose Lactic Acid 1.8 Calcium Total Bilirubin AST ALT Alkaline Phosphatase Total Protein Albumin Globulin Albumin/Globulin Ratio Assessment/Plan All Active Problems (Last Reviewed 01/24/19 @ 05:59 by Al Gatica MD) Problem with dialysis access (Acute) Hypercalcemia (Acute) SIRS (systemic inflammatory response syndrome) (Resolved) Acute viral bronchitis (Acute) Generalized weakness (Acute) Generalized weakness (Acute) Transient expressive aphasia (Resolved) Near syncope (Resolved) Hypotension (Resolved) ESRD. HD to be arranged today. Anemia. DEAN with HD Hypercalcemia. patient has known history of B cell lymphoma. He sees Dr Pena at [facility] [place]. gets periodic bisphosphonate infusions for hypercalcemia. Thank you
[2019-08-12] MEDS: Furosemide 80 MG Tablet PO (18:41)
[2019-08-12] MEDS: Ceftriaxone 1 GM/50 ML BAG IV (21:24)
[2019-08-12] MEDS: Tamsulosin HCl 0.4 MG Capsule PO (21:24)
--- NOTE | 2019-08-12 21:41 | NURSING ---
This Rn bladder scanned pt for 514ml at this time. Pt is incontinent so for a urine sample pt agreed to straight cath. Once this RN inserted catheter pt yelled to take it out. Unable to obtain sample at this time, will notify physician.
[2019-08-13] VITALS (13 sets, daily range): BP systolic 99–134; BP diastolic 54–92; PULSE 80–123; RESP 14–22; TEMP 2.7–37.1; O2SAT 92–98
[2019-08-13 03:06] LABS: Bacteria 0 SEEN /hpf (None Seen); Mucous, Urine 0 SEEN /hpf (<or=2+)
[2019-08-13 03:08] LABS: Color, Urine Yellow (Yellow); Glucose, Dipstick 250 mg/dl (Normal); Ketone-Dipstick Negative (Negative); Leukocyte Esterase-Dipstick 25 /ul (Negative); Nitrite-Dipstick Negative (Negative); Occult Blood-Urine 10 /ul (Negative); Protein-Dipstick 100 mg/dl (Negative); Urine Bilirubin Dipstick Negative (Negative); Urine Clarity Sl. Cloudy (Clear); Urine Urobilinogen Normal (Normal)
[2019-08-13 03:20] LABS: Red Blood Cells-Urine 0-5 SEEN /hpf (0-5); Squamous Epithelial Cells - UA 0-5 SEEN /hpf (0-5); White Blood Cells 0-5 SEEN /hpf (0-5)
--- NOTE | 2019-08-13 06:20 | NURSING ---
Dialysis nurse, Basia called to make sure Pt would allow them to do Dialysis today. This RN woke pt up to ask, and he refused. This RN informed historical interpreter of the refusal- she states she will wait to see what his labs are and will talk to his MD.
[2019-08-13 08:05] LABS: Absolute Lymphocyte Count 0.66 X10^3/uL (0.83-4.51); Absolute Neutrophil Count 7.9 X10^3/uL (2.0-7.7); Basophil# 0.02 X10^3/uL; Basophil% 0.2 % (0-1); Eosinophil# 0.06 X10^3/uL; Eosinophils% 0.6 % (0-5); Hematocrit 34.5 % (40-54); Hemoglobin 10.9 g/dL (13.0-16.5); Lymphocyte # 0.66 X10^3/ul (4.0); Lymphocyte % 6.7 % (19-41); Mean Corp Hgb Conc 31.6 g/dL (32-36); Mean Corpuscular Hgb 29.9 pg (27.0-32.0); Mean Corpuscular Volume 94.8 fL (80-94); Mean Platelet Vol. 9.1 fl (6.2-12.0); Monocyte# 1.15 X10^3/uL; Monocyte% 11.7 % (0-10); NRBC Flagged by Analyzer 0 % (0-5); Neutrophil # 7.92 X10^3/uL (2.7-7.7); Neutrophil % 80.4 % (47-70); Platelet Count 120 K/mm3 (150-450); RBC Distribution Width CV 14.4 % (11.6-14.6); RBC Distribution Width SD 50.1 fl (35.1-43.9); Red Blood Count 3.64 M/mm3 (4.6-6.2); White Blood Count 9.9 K/mm3 (4.4-11.0)
[2019-08-13 08:48] LABS: Anion Gap 6 (5-15); BUN 24 mg/dL (7-18); BUN/Creat Ratio 4.4 RATIO (10-20); Calcium,Total 11.6 mg/dL (8.5-10.1); Chloride 100 mmol/L (98-107); Creatinine, Serum 5.43 mg/dL (0.70-1.30); EST Glomerular Filtration Rate 11 mL/min (>60); Est Glom Filt Rate - Afr Amer 13 mL/min (>60); Estimated Creatinine Clearance 8.03 ml/min; Glucose 103 mg/dL (74-106); Potassium 3.8 mmol/L (3.5-5.1); Sodium Level 134 mmol/L (136-145)
[2019-08-13] MEDS: Enoxaparin 30 MG/0.3 ML Syringe SC (09:26)
[2019-08-13] MEDS: Furosemide 80 MG Tablet PO ×2 (09:26→17:23)
[2019-08-13] MEDS: SEVELAMER CARBONATE 800 MG TABLET 1600 MG PO ×3 (09:26→17:23)
[2019-08-13] MEDS: Tamsulosin HCl 0.4 MG Capsule PO ×2 (09:26→22:11)
[2019-08-13] MEDS: Ceftriaxone 1 GM/50 ML BAG IV ×2 (09:31→22:07)
--- NOTE | 2019-08-13 12:04 | CM.UR ---
RN CM Assessment Introduced role of RN CM to patient. Patient is alert and able to participate in RN CM Assessment. Care providers, pharmacy, and demographics verified. at bedside. Patient drowsy and frequently fell asleep, most of assessment done with . Presentation: Increased weakness and sob Admit Dx: RLL pneumonia, hypoxia Re-Admit: No Barriers/Issues: Lack of motivation. PCP: Jack Specialists: Thien (neph), Jean (onc) and ramírez (urologist). goes to [facility] at 6:30am for dialysis. Preferred Pharmacy: [facility] Insurance: [facility] Rx Benefit: Yes LNOK: , Phyllis LW/HPOA: On file-- is HPOA. Living Arrangements: Patient lives with in [place]. Has 4 steps to enter. Usually goes down them backwards. When strength declines much more difficult to get up/down steps. Is interested in getting an ramp placed. ADL?s: states normally does everything except she does the finances, cleaning and they hire out the yard work and she does most cooking--though he can get something simple to eat if needed. States with his increased weakness she had to help him more and that is how she noticed something was wrong. Transportation: States he will drive occasionally. States usually early AM when little traffic on road he'll run and get breakfast. States sometimes she knows and sometimes she doesn't until after he returns/has returned home. States she drives but most often they use [employer] for transportation. DME: Shower chair (which he usually refuses to use), raised toilet seat, hospital bed, walker, rollator, grab bars and wheelchair. Would like to get a ramp. HHC: none. states she thinks HHC is a good idea however she knows the patient will not do it so she said to not bother because he will refuse when they call to set up appt. SNF: [facility] [place] [facility]. Goal: Refuses SNF and HHC. DC PLAN: TBD but anticipating home with no services. Herminio Valdez RN, CCM.
--- NOTE | 2019-08-13 18:45 | PCM.PROGNOTE ---
Subjective: Patient was seen and examined today, he declined his dialysis last night, his is in the room today and I spoke with her briefly, she states that he must have dialysis today and that we should not let him refuse dialysis. I reviewed the patient's medical record this morning, I am not absolutely convinced he has a pneumonia, patient remains afebrile and his white blood cell count is normal. Nevertheless, I have decided to leave the patient on IV antibiotics for now. Patient is being seen by nephrology for dialysis. - Physical Exam General: Oriented x3, Cooperative, No apparent distress, Lethargic HEENT: Atraumatic, PERRLA, EOMI, Normocephalic Oral: Moist Mucosa Neck: Supple, No JVD, Trachea Midline, Thyroid Normal Size and Texture Lungs: No rhonchi, No wheeze, Diminished - Diminished breath sounds are noted over the patient's right lung field Cardiovascular: Regular rate, Regular Rhythm, Normal S1, No murmurs Abdomen: Bowel Sounds Present, Soft, Non Tender, Non-Distended, Obese Extremities: No clubbing, No cyanosis, Capillary Refill Less than 3 Seconds Skin: No rashes, No breakdown Musculoskeletal: No Tenderness to Palpation of Joints or Extremities Neurological: Cranial nerves II-XII grossly intact, Neuro grossly intact, Sensory exam intact to light touch and pain Psych/Mental Status: Appropriate, Flat Affect Vital Signs Temp Pulse Resp BP Pulse Ox 98.7 F 95 14 130/67 H 92 08/13/19 15:45 08/13/19 15:45 08/13/19 15:45 08/13/19 15:45 08/13/19 15:45 Oxygen Flow Rate (L/min) 2 Oxygen Delivery Method Room Air Weight: 86.8 kg Body Mass Index (BMI) 36.1 Finger Stick Blood Glucose 116 Intake and Output for Last 24 Hours 08/11/19 08/12/19 08/13/19 23:59 23:59 23:59 Intake Total 505 / 505 375 / 375 Output Total 100 / 100 Balance 505 / 505 275 / 275 Microbiology Past 72 Hours 08/13/19 03:00 Legionella Antigen - Final Urine, Clean Catch 08/13/19 03:00 Streptococcus pneumoniae Antigen (M - Final Urine, Clean Catch 08/12/19 19:16 Respiratory Panel (PCR) - Final Mucosa - Nose Laboratory Tests Past 24 Hrs 08/13/19 08/13/19 08/13/19 03:00 07:47 07:47 WBC 9.9 RBC 3.64 L Hgb 10.9 L Hct 34.5 L MCV 94.8 H MCH 29.9 MCHC 31.6 L RDW Std Deviation 50.1 H RDW Coeff of Cari 14.4 Plt Count 120 L MPV 9.1 Immature Gran % (Auto) 0.400 Neut % (Auto) 80.4 H Lymph % (Auto) 6.7 L [place] % (Auto) 11.7 H Eos % (Auto) 0.6 Baso % (Auto) 0.2 Absolute Neuts (auto) 7.9 H Absolute Lymphs (auto) 0.66 L Nucleated RBC % 0 Sodium 134 L Potassium 3.8 Chloride 100 Carbon Dioxide 28.0 Anion Gap 6 BUN 24 H Creatinine 5.43 H Estim Creat Clear Calc 8.03 Est GFR (MDRD) Af Amer 13 L Est GFR (MDRD) Non-Af 11 L BUN/Creatinine Ratio 4.4 L Glucose 103 Calcium 11.6 H Urine Color Yellow Urine Clarity Sl. Cloudy Urine pH 8.0 Ur Specific [place] 1.010 Urine Protein 100 H Urine Glucose (UA) 250 H Urine Ketones Negative Urine Occult Blood 10 H Urine Nitrite Negative Urine Bilirubin Negative Urine Urobilinogen Normal Ur Leukocyte Esterase 25 H Urine RBC 0-5 SEEN Urine WBC 0-5 SEEN Ur Squamous Epith Cells 0-5 SEEN Urine Bacteria 0 SEEN Urine Mucus 0 SEEN Medical Necessity - Tobacco Use Smoking Status: Former smoker Assessment/Plan All Active Problems (Last Reviewed 01/24/19 @ 05:59 by Al Gatica MD) Problem with dialysis access (Resolved) Hypercalcemia (Acute) SIRS (systemic inflammatory response syndrome) (Resolved) Acute viral bronchitis (Resolved) Generalized weakness (Resolved) Generalized weakness (Resolved) Recurrent falls (Resolved) Transient expressive aphasia (Resolved) Near syncope (Resolved) Hypotension (Resolved) #1 diffuse right lung infiltrate-possibly secondary to community-acquired pneumonia versus fluid accumulation secondary to end-stage renal disease requiring dialysis-patient will undergo dialysis today, nephrology is participating in his care, I have decided to continue antibiotics for now and repeat the patient's CBC tomorrow and monitor his temperature. #2 end-stage renal disease requiring dialysis-again nephrology is participating in his care #3 B-cell lymphoma-patient has a chronic B-cell lymphoma, he has refused to follow-up with Dr. Pena recently, he did receive treatment recently due to lymphadenopathy on his CT of his chest. #4 hypercalcemia-exact etiology is unclear, Dr. Pena states that it was originally thought that the hypercalcemia could be associated with the B-cell lymphoma but it is not clear exactly what is causing the patient's hypercalcemia. #5 poor compliance with medical regimen-patient has refused dialysis recently, I talked to the patient's today in the room about his CODE STATUS, the states that the patient is a DNR CC arrest. Code Visit Inpatient E&M: 17637 Subs Hosp L2
--- NOTE | 2019-08-13 22:31 | DIALYSIS ---
HD x3.5 hours ordered but ended tx 20 mins early, tolerated fair; accessed via MESHA AVF, needles extra secured and monitored closely due to patient forgetfulness, frequently trying to use this arm; midodrine given with treatment, UF 750mL, crit-line ended profile A; needles removed and stasis achieved without issue (less than 5 mins each site); last 20 mins of tx patient's RN entered room stating monitor is showing patient to be more tachy than previous, along with his hypotension tx ended, vitals stable after ending tx, patient vomited small amount of soda and phlegm post tx
[2019-08-14] VITALS (12 sets, daily range): BP systolic 95–119; BP diastolic 54–62; PULSE 66–109; RESP 14–18; TEMP 36.6–37.1; O2SAT 93–96
--- NOTE | 2019-08-14 05:55 | RAD_ITS ---
HISTORY: SOB Short of Breath/Dyspnea ADDITIONAL HISTORY: None provided. COMPARISON: 08/12/2019 TECHNIQUE: Frontal chest radiograph. Number of images including paperwork: 2 FINDINGS: LUNGS AND PLEURA: Loculated right pleural effusion and right pulmonary opacity with mild interval increase. No gross change in retrocardiac opacity. Nodular density projects over the left anterior fifth rib and posterior seventh rib. CARDIAC SILHOUETTE: Unremarkable. MEDIASTINUM AND HARLEY: Unremarkable. UPPER ABDOMEN: Unremarkable. SKELETON AND SOFT TISSUES: No acute findings. OTHER DEVICES AND HARDWARE: None. RAD/Chest 1 View (Portable) IMPRESSION: 1. Mild increase in loculated left pleural effusion and associated left pulmonary opacity. 2. Unchanged retrocardiac opacity. 3. Left mid lung nodular density. PA and lateral radiographs or chest CT recommended for further evaluation when the patient is able. at [id number] Reported and signed by: Mone Castaneda MD Electronically Signed: Mone Castaneda MD at 7:07 EDT Tel , Service support ,
[2019-08-14 06:25] LABS: Absolute Lymphocyte Count 0.51 X10^3/uL (0.83-4.51); Absolute Neutrophil Count 6.5 X10^3/uL (2.0-7.7); Basophil# 0.02 X10^3/uL; Basophil% 0.2 % (0-1); Eosinophil# 0.03 X10^3/uL; Eosinophils% 0.4 % (0-5); Hematocrit 35.7 % (40-54); Hemoglobin 11.5 g/dL (13.0-16.5); Lymphocyte # 0.51 X10^3/ul (4.0); Lymphocyte % 6.4 % (19-41); Mean Corp Hgb Conc 32.2 g/dL (32-36); Mean Corpuscular Hgb 30.3 pg (27.0-32.0); Mean Corpuscular Volume 94.2 fL (80-94); Mean Platelet Vol. 9.4 fl (6.2-12.0); Monocyte% 11.2 % (0-10); NRBC Flagged by Analyzer 0 % (0-5); Neutrophil # 6.48 X10^3/uL (2.7-7.7); Neutrophil % 80.9 % (47-70); POSITIVE DIFFERENTIAL YES; Platelet Count 143 K/mm3 (150-450); RBC Distribution Width CV 14.4 % (11.6-14.6); RBC Distribution Width SD 49.2 fl (35.1-43.9); Red Blood Count 3.79 M/mm3 (4.6-6.2)
[2019-08-14 06:36] LABS: Differential Indicated SCAN CRITERIA MET
[2019-08-14 06:53] LABS: ALB/GLOB Ratio 0.6 RATIO (0.9-2.4); AST(SGOT) 12 U/L (15-37); Alanine Aminotransfer ALT/SGPT 7 U/L (16-61); Albumin, Serum 2.1 g/dL (3.2-5.0); Alkaline Phosphatase 84 U/L (45-117); Anion Gap 7 (5-15); BUN 13 mg/dL (7-18); BUN/Creat Ratio 3.8 RATIO (10-20); Calcium,Total 10.2 mg/dL (8.5-10.1); Chloride 97 mmol/L (98-107); Creatinine, Serum 3.41 mg/dL (0.70-1.30); EST Glomerular Filtration Rate 19 mL/min (>60); Est Glom Filt Rate - Afr Amer 22 mL/min (>60); Estimated Creatinine Clearance 12.78 ml/min; Globulin 3.7 g/dL (2.2-4.2); Glucose 98 mg/dL (74-106); Potassium 3.5 mmol/L (3.5-5.1); Protein, Total 5.8 g/dL (6.4-8.2); Sodium Level 134 mmol/L (136-145)
[2019-08-14 07:01] LABS: Differential Comment SCANNED
[2019-08-14] MEDS: Furosemide 80 MG Tablet PO ×2 (09:35→17:37)
[2019-08-14] MEDS: Tamsulosin HCl 0.4 MG Capsule PO ×2 (09:35→21:05)
[2019-08-14] MEDS: SEVELAMER CARBONATE 800 MG TABLET 1600 MG PO ×2 (09:35→13:32)
[2019-08-14] MEDS: Enoxaparin 30 MG/0.3 ML Syringe SC (09:35)
[2019-08-14] MEDS: Ceftriaxone 1 GM/50 ML BAG IV (09:40)
--- NOTE | 2019-08-14 12:55 | CPS ---
pt not wheezing, dialysis about to start, will wait for aerosol.
--- NOTE | 2019-08-14 15:24 | DIALYSIS ---
isolated ultrafiltration x 2 hrs today. fluid removal 1400ml. Access via MESHA AVF. pt enid well. See HD flowsheet on chart.
[2019-08-15] VITALS (14 sets, daily range): BP systolic 91–118; BP diastolic 40–68; PULSE 64–115; RESP 16–24; TEMP 36.6–37.2; O2SAT 90–97
--- NOTE | 2019-08-15 05:55 | RAD_ITS ---
STUDY: X-RAY CHEST REASON FOR EXAM: Male, 79 years old. Shortness of breath/dyspnea. TECHNIQUE: Single AP portable view of the chest. COMPARISON: Comparison is made with prior examination dated August 14, 2019. FINDINGS: EKG electrodes are seen. Persistent right pleural effusion with underlying infiltration and/or atelectasis. Stable elevation of the right hemidiaphragm. Mild increased markings at the left lung base suggestive of atelectasis. Normal size heart. Normal mediastinum and marcia. Normal visualized pulmonary arteries. Normal visualized aortic arch and descending thoracic aorta. Normal visualized thoracic spine. Normal visualized ribs, clavicles, and shoulders. There is no demonstrated abnormality of the visualized soft tissue structures of the upper abdomen. RAD/Chest 1 View (Portable) IMPRESSION: Small right pleural effusion with underlying bibasilar atelectasis is more prominent on the right side. Electronically Signed: Alek Lewis, at 10:58 EDT , Service support ,
[2019-08-15 06:16] LABS: Absolute Lymphocyte Count 0.64 X10^3/uL (0.83-4.51); Absolute Neutrophil Count 6.4 X10^3/uL (2.0-7.7); Basophil# 0.03 X10^3/uL; Basophil% 0.4 % (0-1); Eosinophil# 0.23 X10^3/uL; Eosinophils% 2.8 % (0-5); Hematocrit 36.8 % (40-54); Hemoglobin 11.9 g/dL (13.0-16.5); Lymphocyte # 0.64 X10^3/ul (4.0); Lymphocyte % 7.7 % (19-41); Mean Corp Hgb Conc 32.3 g/dL (32-36); Mean Corpuscular Hgb 30.3 pg (27.0-32.0); Mean Corpuscular Volume 93.6 fL (80-94); Mean Platelet Vol. 9.4 fl (6.2-12.0); Monocyte# 0.91 X10^3/uL; Monocyte% 10.9 % (0-10); NRBC Flagged by Analyzer 0 % (0-5); Neutrophil # 6.43 X10^3/uL (2.7-7.7); Neutrophil % 77.1 % (47-70); Platelet Count 147 K/mm3 (150-450); RBC Distribution Width CV 14.3 % (11.6-14.6); Red Blood Count 3.93 M/mm3 (4.6-6.2); White Blood Count 8.3 K/mm3 (4.4-11.0)
[2019-08-15 06:37] LABS: Anion Gap 7 (5-15); BUN 26 mg/dL (7-18); BUN/Creat Ratio 5.6 RATIO (10-20); Calcium,Total 10.9 mg/dL (8.5-10.1); Chloride 97 mmol/L (98-107); Creatinine, Serum 4.66 mg/dL (0.70-1.30); EST Glomerular Filtration Rate 13 mL/min (>60); Est Glom Filt Rate - Afr Amer 16 mL/min (>60); Estimated Creatinine Clearance 9.35 ml/min; Glucose 92 mg/dL (74-106); Potassium 3.5 mmol/L (3.5-5.1); Sodium Level 133 mmol/L (136-145)
[2019-08-15] MEDS: Ipratropium/Albuterol Sulfate 3 ML AMPUL.NEB INHALATION ×2 (07:10→19:43)
--- NOTE | 2019-08-15 08:12 | CPS ---
RX ENDED EARLY...PT PULLED MASK OFF AND WOULD NOT ALLOW MASK TO BE PLACED BACK ON TO FINISH RX
[2019-08-15] MEDS: SEVELAMER CARBONATE 800 MG TABLET 1600 MG PO ×2 (09:28→17:41)
[2019-08-15] MEDS: Furosemide 80 MG Tablet PO (09:28)
[2019-08-15] MEDS: Enoxaparin 30 MG/0.3 ML Syringe SC (09:29)
[2019-08-15] MEDS: Tamsulosin HCl 0.4 MG Capsule PO ×2 (09:29→22:07)
--- NOTE | 2019-08-15 11:27 | CASEMGMT ---
JUAN met with patient's . Introduced self and role at [facility]. SW asked her if she feels like patient will be okay to go home at discharge or if he will need SNF short term. She said she wants him home with her. She said he won't do home health. She said he needs to be able to do things, but she saw him with therapy today and she feels fine taking him home. She said she was doing some bed exercises with him a little bit ago. JUAN told her if anything changes and she feels he needs SNF to just let someone know and they will notify JUAN. Plan: At this time the plan is home with . SW available should this change. Kaela TUCKER MSW
[2019-08-15] MEDS: Midodrine HCl 5 MG Tablet 10 MG PO (12:04)
--- NOTE | 2019-08-15 13:48 | PCM.PN.REN ---
Subjective: no new events - Physical Exam General: Alert, Oriented x3, Cooperative HEENT: Atraumatic, PERRLA, EOMI, Normocephalic Neck: Supple, No JVD, Negative Carotid Bruits Lungs: Clear to auscultation, Normal air movement Cardiovascular: Regular rate, No murmurs Abdomen: Bowel Sounds Present, Soft, Non Tender Extremities: No edema, Capillary Refill Less than 3 Seconds Skin: No rashes, No breakdown Musculoskeletal: No Tenderness to Palpation of Joints or Extremities Neurological: Cranial nerves II-XII grossly intact Psych/Mental Status: Normal Affect, Appropriate Vital Signs Temp Pulse Resp BP Pulse Ox 97.8 F 95 18 105/50 L 92 08/15/19 09:05 08/15/19 09:05 08/15/19 09:05 08/15/19 09:05 08/15/19 09:05 Oxygen Flow Rate (L/min) 2 Oxygen Delivery Method Room Air Weight: 84.4 kg Body Mass Index (BMI) 36.1 Finger Stick Blood Glucose 116 Intake and Output for Last 24 Hours 08/13/19 08/14/19 08/15/19 23:59 23:59 23:59 Intake Total 730 / 730 220 / 220 360 / 360 Output Total 850 / 850 1400 / 1400 Balance -120 / -120 -1180 / -1180 360 / 360 Microbiology Past 72 Hours 08/13/19 17:46 Gram Stain - Final Sputum, Expectorated/Coughed Respiratory Culture - Preliminary Staphylococcus aureus Presumptive C albicans 08/12/19 12:30 Blood Culture - Preliminary Blood Culture (Wb) - Right Hand No growth in 48 hours. 08/12/19 11:55 Blood Culture - Preliminary Blood Culture (Wb) - Anticubital Right No growth in 48 hours. 08/13/19 03:00 Urine Culture - Final Urine, Clean Catch Mixed Gram Positive Organisms 08/13/19 03:00 Legionella Antigen - Final Urine, Clean Catch 08/13/19 03:00 Streptococcus pneumoniae Antigen (M - Final Urine, Clean Catch 08/12/19 19:16 Respiratory Panel (PCR) - Final Mucosa - Nose Laboratory Tests Past 24 Hrs 08/15/19 08/15/19 05:40 05:40 WBC 8.3 RBC 3.93 L Hgb 11.9 L Hct 36.8 L MCV 93.6 MCH 30.3 MCHC 32.3 RDW Std Deviation 49.0 H RDW Coeff of Cari 14.3 Plt Count 147 L MPV 9.4 Immature Gran % (Auto) 1.100 H Neut % (Auto) 77.1 H Lymph % (Auto) 7.7 L [place] % (Auto) 10.9 H Eos % (Auto) 2.8 Baso % (Auto) 0.4 Absolute Neuts (auto) 6.4 Absolute Lymphs (auto) 0.64 L Nucleated RBC % 0 Sodium 133 L Potassium 3.5 Chloride 97 L Carbon Dioxide 29.0 Anion Gap 7 BUN 26 H Creatinine 4.66 H Estim Creat Clear Calc 9.35 Est GFR (MDRD) Af Amer 16 L Est GFR (MDRD) Non-Af 13 L BUN/Creatinine Ratio 5.6 L Glucose 92 Calcium 10.9 H Medical Necessity - Tobacco Use Smoking Status: Former smoker Assessment/Plan All Active Problems (Last Reviewed 01/24/19 @ 05:59 by Al Gatica MD) Problem with dialysis access (Resolved) Hypercalcemia (Acute) SIRS (systemic inflammatory response syndrome) (Resolved) Acute viral bronchitis (Resolved) Generalized weakness (Resolved) Generalized weakness (Resolved) Recurrent falls (Resolved) Transient expressive aphasia (Resolved) Near syncope (Resolved) Hypotension (Resolved) ESRD. HD today. seen on HD. no new complaints. Anemia. DEAN with HD Hypercalcemia. patient has known history of B cell lymphoma. He sees Dr Pena at [facility]. gets periodic bisphosphonate infusions for hypercalcemia. Thank you
--- NOTE | 2019-08-15 16:37 | PN_ITS ---
Subjective: Talk to the patient's spouse. Patient lethargic. Mainly answers by nodding his head yes or no. As per the nursing staff, he declined dialysis at day before yesterday and then was dialyzed yesterday. Chest x-ray discussed with the patient. Patient also has history of B-cell lymphoma and had chemotherapy, IV infusion by Dr. Pena in March 2019. Chest x-ray mainly although partial right lung opacity has improved. Vitals/I&O's: Vital Signs Temp Pulse Resp BP Pulse Ox 98.1 F 95 16 91/57 L 94 08/15/19 14:50 08/15/19 14:59 08/15/19 14:50 08/15/19 14:50 08/15/19 14:50 Oxygen Flow Rate (L/min) 2 Oxygen Delivery Method Room Air Weight: 186 lb 1.122 oz Body Mass Index (BMI) 36.1 Finger Stick Blood Glucose 116 Intake and Output for Last 24 Hours 08/13/19 08/14/19 08/15/19 23:59 23:59 23:59 Intake Total 730 / 730 220 / 220 360 / 360 Output Total 850 / 850 1400 / 1400 Balance -120 / -120 -1180 / -1180 360 / 360 General: Confused, Disoriented, Lethargic HEENT: Atraumatic, PERRLA, EOMI, Normocephalic Neck: Supple, No JVD, Negative Carotid Bruits Lungs: Diminished - Air entry is diminished on the right lung., Rhonchi, Wheezes Cardiovascular: Regular rate, Normal S1, Normal S2, No murmurs Abdomen: Bowel Sounds Present, Soft, Non Tender, Non-Distended Extremities: No edema, Capillary Refill Less than 3 Seconds Skin: No rashes, No breakdown Musculoskeletal: No Tenderness to Palpation of Joints or Extremities, Arthritic Changes Neurological: Cranial nerves II-XII grossly intact, Deep Tendon Reflexes 2+/4 and Symmetrical, Neuro grossly intact Microbiology Past 72 Hours 08/13/19 17:46 Sputum, Expectorated/Coughed Gram Stain - Final 08/13/19 17:46 Sputum, Expectorated/Coughed Respiratory Culture - Preliminary Staphylococcus aureus Presumptive C albicans 08/12/19 12:30 Blood Culture (Wb) - Right Hand Blood Culture - Preliminary No growth in 48 hours. 08/12/19 11:55 Blood Culture (Wb) - Anticubital Right Blood Culture - Preliminary No growth in 48 hours. 08/13/19 03:00 Urine, Clean Catch Urine Culture - Final Mixed Gram Positive Organisms 08/13/19 03:00 Urine, Clean Catch Legionella Antigen - Final 08/13/19 03:00 Urine, Clean Catch Streptococcus pneumoniae Antigen (M - Final 08/12/19 19:16 Mucosa - Nose Respiratory Panel (PCR) - Final Laboratory Results 08/15/19 05:40: WBC 8.3, RBC 3.93 L, Hgb 11.9 L, Hct 36.8 L, MCV 93.6, MCH 30.3, MCHC 32.3, RDW Std Deviation 49.0 H, RDW Coeff of Cari 14.3, Plt Count 147 L, MPV 9.4, Immature Gran % (Auto) 1.100 H, Neut % (Auto) 77.1 H, Lymph % (Auto) 7.7 L, [place] % (Auto) 10.9 H, Eos % (Auto) 2.8, Baso % (Auto) 0.4, Absolute Neuts (auto) 6.4, Absolute Lymphs (auto) 0.64 L, Nucleated RBC % 0 08/15/19 05:40: Sodium 133 L, Potassium 3.5, Chloride 97 L, Carbon Dioxide 29.0, Anion Gap 7, BUN 26 H, Creatinine 4.66 H, Estim Creat Clear Calc 9.35, Est GFR (MDRD) Af Amer 16 L, Est GFR (MDRD) Non-Af 13 L, BUN/Creatinine Ratio 5.6 L, Glucose 92, Calcium 10.9 H Current Medications Acetaminophen (Tylenol) 650 mg PO Q6H PRN PRN PRN Reason: Mild Pain (scale 0-3)/T>100.7 Albuterol/Ipratropium (Duoneb) 3 ml INHALATION Q6HWA.RT [facility] Last Admin: 08/15/19 13:10 Dose: Not Given Documented by: Dextrose (D50w Syringe) 0 gm IV X1 PRN; Protocol PRN Reason: Hypoglycemia Enoxaparin Sodium (Lovenox) 30 mg SC DAILY@1000 [facility] Last Admin: 08/15/19 09:29 Dose: 30 mg Documented by: Furosemide (Lasix) 80 mg PO BIDLX [facility] Last Admin: 08/15/19 09:28 Dose: 80 mg Documented by: Glucagon () 1 mg IM .X1 PRN PRN Reason: Hypoglycemia Midodrine (Proamatine) 10 mg PO MoWeFr@1000 [facility] Last Admin: 08/15/19 12:04 Dose: 10 mg Documented by: Ondansetron HCl (Zofran Odt) 4 mg PO Q6H PRN PRN PRN Reason: NAUSEA Oxycodone HCl (Oxyir) 5 mg PO Q8H PRN PRN PRN Reason: Pain Score 1-10/10 Sevelamer Carbonate (Renvela) 1,600 mg PO TIDCM [facility] Last Admin: 08/15/19 14:57 Dose: Not Given Documented by: Tamsulosin HCl (Flomax) 0.4 mg PO BID [facility] Last Admin: 08/15/19 09:29 Dose: 0.4 mg Documented by: Medical Necessity - Tobacco Use Smoking Status: Former smoker Assessment/Plan All Active Problems (Last Reviewed 01/24/19 @ 05:59 by Al Gatica MD) Problem with dialysis access (Resolved) Hypercalcemia (Acute) SIRS (systemic inflammatory response syndrome) (Resolved) Acute viral bronchitis (Resolved) Generalized weakness (Resolved) Generalized weakness (Resolved) Recurrent falls (Resolved) Transient expressive aphasia (Resolved) Near syncope (Resolved) Hypotension (Resolved) This is a 87-year-old gentleman with multiple comorbidities including B-cell lymphoma on chemotherapy, ESRD on hemodialysis, bilateral IJ deep vein thrombosis, nephrotic syndrome was admitted with generalized weakness and shortness of breath. Patient has cough, thick phlegm but could not tell exact color. #1 acute hypoxic respiratory insufficiency secondary to community-acquired pneumonia: Patient chest x-ray showed diffuse right lung infiltrate-possibly secondary to community-acquired pneumonia and/or fluid accumulation secondary to end-stage renal disease requiring dialysis-patient had hemodialysis yesterday and will receive today. Chest x-ray showed moderate right pleural effusion along with infiltrate and bibasilar interstitial infiltrates. Repeat chest x- ray today shows a small right pleural effusion with underlying bibasilar atelectasis, more prominent on right side. CT chest ordered for tomorrow morning. #2 end-stage renal disease requiring dialysis along with anemia of CKD-again nephrology is participating in his care. Patient on DEAN ib GD #3 B-cell lymphoma-patient has a chronic B-cell lymphoma, he has refused to follow-up with Dr. Pena recently, he did receive treatment recently due to lymphadenopathy on his CT of his chest. #4 hypercalcemia-exact etiology is unclear. Dr. Pena states that it was originally thought that the hypercalcemia could be associated with the B-cell lymphoma but it is not clear exactly what is causing the patient's hypercalcemia. #5 Generalized weakness, patient noncompliance: I talked to the patient and spouse present in the room. Explained the clinical condition. Spouse wants patient to follow-up with Dr. Pena. CODE STATUS is DNR CC arrest. Clinical Impression(s) from Imaging Studies Chest X-Ray 08/12/19 11:43 IMPRESSION: Moderate right pleural fluid and suspicious bibasilar interstitial infiltrates. Deeper inspiratory chest and lateral view will help clarify. If patient is unable to take deeper inspiratory effort, CT chest will be more helpful for further evaluation. Chest X-Ray 08/14/19 05:55 IMPRESSION: 1. Mild increase in loculated left pleural effusion and associated left pulmonary opacity. 2. Unchanged retrocardiac opacity. 3. Left mid lung nodular density. PA and lateral radiographs or chest CT recommended for further evaluation when the patient is able. Chest X-Ray 08/15/19 05:55 IMPRESSION: Small right pleural effusion with underlying bibasilar atelectasis is more prominent on the right side. Microbiology Past 72 Hours 08/13/19 17:46 Sputum, Expectorated/Coughed Gram Stain - Final 08/13/19 17:46 Sputum, Expectorated/Coughed Respiratory Culture - Preliminary Staphylococcus aureus Presumptive C albicans 08/12/19 12:30 Blood Culture (Wb) - Right Hand Blood Culture - Preliminary No growth in 48 hours. 08/12/19 11:55 Blood Culture (Wb) - Anticubital Right Blood Culture - P reliminary No growth in 48 hours. 08/13/19 03:00 Urine, Clean Catch Urine Culture - Final Mixed Gram Positive Organisms 08/13/19 03:00 Urine, Clean Catch Legionella Antigen - Final 08/13/19 03:00 Urine, Clean Catch Streptococcus pneumoniae Antigen (M - Final 08/12/19 19:16 Mucosa - Nose Respiratory Panel (PCR) - Final Laboratory Results 08/15/19 05:40: WBC 8.3, RBC 3.93 L, Hgb 11.9 L, Hct 36.8 L, MCV 93.6, MCH 30.3, MCHC 32.3, RDW Std Deviation 49.0 H, RDW Coeff of Cari 14.3, Plt Count 147 L, MPV 9.4, Immature Gran % (Auto) 1.100 H, Neut % (Auto) 77.1 H, Lymph % (Auto) 7.7 L, [place] % (Auto) 10.9 H, Eos % (Auto) 2.8, Baso % (Auto) 0.4, Absolute Neuts (auto) 6.4, Absolute Lymphs (auto) 0.64 L, Nucleated RBC % 0 08/15/19 05:40: Sodium 133 L, Potassium 3.5, Chloride 97 L, Carbon Dioxide 29.0, Anion Gap 7, BUN 26 H, Creatinine 4.66 H, Estim Creat Clear Calc 9.35, Est GFR (MDRD) Af Amer 16 L, Est GFR (MDRD) Non-Af 13 L, BUN/Creatinine Ratio 5.6 L, Glucose 92, Calcium 10.9 H Code Visit Inpatient E&M: 60109 Subs Hosp L3
--- NOTE | 2019-08-15 17:12 | DIALYSIS ---
HD x 3.5 hours complete. Unable to remove fluid d/t hypotension. UF +200ml post tx. Dr. Cabrera is aware. Used left arm access. [place] removed post tx and pressure applied x 10 minutes. Report was given to KALLI Randall.
--- NOTE | 2019-08-15 17:19 | PCM.RX.CS ---
Consult Type of Consult: New start Suspected Infection: Pneumonia Labs: Sodium 133 mmol/L (136-145) L 08/15/19 05:40 Potassium 3.5 mmol/L (3.5-5.1) 08/15/19 05:40 Chloride 97 mmol/L (98-107) L 08/15/19 05:40 Carbon Dioxide 29.0 mmol/L (21.0-32.0) 08/15/19 05:40 Anion Gap 7 (5-15) 08/15/19 05:40 BUN 26 mg/dL (7-18) H 08/15/19 05:40 Creatinine 4.66 mg/dL (0.70-1.30) H 08/15/19 05:40 Est GFR (MDRD) Af Amer 16 mL/min (>60) L 08/15/19 05:40 Est GFR (MDRD) Non-Af 13 mL/min (>60) L 08/15/19 05:40 BUN/Creatinine Ratio 5.6 RATIO (10-20) L 08/15/19 05:40 Glucose 92 mg/dL (74-106) 08/15/19 05:40 Microbiology: Microbiology 08/13/19 17:46 Sputum, Expectorated/Coughed Gram Stain - Final 08/13/19 17:46 Sputum, Expectorated/Coughed Respiratory Culture - Preliminary Staphylococcus aureus Presumptive C albicans 08/12/19 12:30 Blood Culture (Wb) - Right Hand Blood Culture - Preliminary No growth in 48 hours. 08/12/19 11:55 Blood Culture (Wb) - Anticubital Right Blood Culture - Preliminary No growth in 48 hours. 08/13/19 03:00 Urine, Clean Catch Urine Culture - Final Mixed Gram Positive Organisms 08/13/19 03:00 Urine, Clean Catch Legionella Antigen - Final 08/13/19 03:00 Urine, Clean Catch Streptococcus pneumoniae Antigen (M - Final 08/12/19 19:16 Mucosa - Nose Respiratory Panel (PCR) - Final Weight used for dosin lb 3.013 oz Estimated Creatinine Clearance: 9.35 Goal Trough: 10-15 mcg/mL Pharmacy Plan for Drug Dosing: Pharmacy Service will continue to monitor and adjust dosing as required. Loading dose of 15mg/kg- 1250mg scheduled for 9-30 at 1800 Second dose will be given after next dialysis Pre-dialysis random vancomycin levels will be obtained with subsequent dialysis sessions
[2019-08-15 19:39] LABS: Probe Check PASS
[2019-08-15 19:42] LABS: M R Staph aureus DNA By PCR POSITIVE (Negative)
[2019-08-15] MEDS: 0.9% NaCl Peripheral Flush Adult/Peds IV (20:32)
[2019-08-16] VITALS (11 sets, daily range): BP systolic 98–156; BP diastolic 50–80; PULSE 79–113; RESP 16–18; TEMP 36.4–36.8; O2SAT 90–97
--- NOTE | 2019-08-16 | IMM_PTH ---
PATIENT: ANSLEY OLIVAS LOC: [facility] U#:[id number] AGE/SX: 79/M ROOM: [facility] RE08/12/[address]: Dr. Fausto Diaz DO : 1940 BED: 1 DIS: 08/17/2019 SPEC #: [id number] RECD: 08/18/19 11:42 STATUS: SOURamirez REQ #: [id number] CHEN: 08/16/19 00:[address]: Aneesh De Jesus DEPT: IMMUNOHISTOCHEMISTRY RECD BY: Yesenia Hardwick ENTERED: 08/18/19 11:43 SP TYPE: IMMUNO OTHR DR: DO Dr. Dona Frausto MD Dr. Nana Yaa Koram, MD Dr. Paul Masci, DO Tissues: THORACIC FLUID Procedures: CD138 (add) CD20 (add) CD3 (add) CD43 (add) CD45 (add) CD5 (add) CD79A (add) KI-67 (add) Pankeratin (initial) PHYSICIAN & [address] [address] SPECIMEN INFORMATION: Tissue Source: Thoracentesis fluid Clinical Info: Right pleural effusion Specimen Number: [id number] CPT code: 84304, 69140 x8 METHODOLOGY: Deparaffinized sections of prefer/formalin-fixed tissue or PAP/DQ stained slides are incubated with monoclonal/polyclonal antibodies/oligonucleotide probes. Localization is made via biotin free immunoperoxidase method. Appropriate controls are performed and reacted as expected. Results on target cell population are indicated in the following table: RESULTS: ANTIBODY / CLONE RESULT AE1-3 (AE1/AE3/PCK26) negative CD3 (PS1) positive CD5 (SP10) positive CD20 (L26) negative CD43 (L60) positive CD45 (RP2/18) positive CD79a (11E3) negative CD138 (B-A38) negative Ki-67 (30-9) negative These tests were developed and their performance characteristics determined by [facility]. They may not have been cleared or approved by the U.S. Food and Drug Administration. The FDA has determined that such clearance or approval is not necessary. The above immunohistochemical/dualISH markers are ordered and reviewed by the pathologist. INTERPRETATION: Thoracentesis fluid: No evidence of lymphoproliferative disorder. AM:damian 08/19/19 Comment: The specimen primarily contains small T-cell lymphocytes.
[2019-08-16 05:51] LABS: International Normalized Ratio 1.2; Prothrombin Time (Protime)PT. 15.1 SECONDS (11.7-14.9)
--- NOTE | 2019-08-16 05:55 | CT_ITS ---
STUDY: CT CHEST WITHOUT CONTRAST REASON FOR EXAM: Male, 79 years old. Pleural effusion, moderate right-sided RADIATION DOSAGE (If Supplied By Facility): CTDIvol = ( 19.75 ) mGy, DLP = ( 671.15 ) mGycm TECHNIQUE: Transaxial imaging was performed without the administration of intravenous contrast material. Individualized dose optimization techniques were used for this CT. COMPARISON: Daily chest x-ray FINDINGS: Lungs are hypoinflated. There is extensive masslike consolidation in the right lower lobe with air bronchograms. This is suspicious for malignancy and less likely compressive consolidation. Nawem-px-kjezgjch right pleural effusion is noted. There are additional pulmonary masses throughout the left lung, largest is in the left lower lobe measuring 4.4 x 4.6 cm. Additional pulmonary masses noted bilaterally. Normal heart and pericardium. Prominent subcarinal lymph node and bulky right hilar lymphadenopathy, subcarinal lymph node measures 1.9 cm. Normal unenhanced pulmonary arteries. Normal aorta arch and descending thoracic aorta. Normal osseous structures. There is no demonstrated abnormality of the visualized upper abdomen. CT/Chest without Contrast IMPRESSION: In the right lower lobe, there is a masslike consolidation which is more suspicious for a malignant process then compressive consolidation. This area measures roughly 11 x 9 cm. There are numerous other pulmonary masses bilaterally, second largest is in the left lower lobe. Findings are concerning for malignancy. Small to moderate right effusion is noted. Mediastinal and hilar lymphadenopathy Electronically Signed: Chadd Fontana DO at 8:48 EDT Tel , Service support ,
[2019-08-16 05:58] LABS: Anion Gap 6 (5-15); BUN 13 mg/dL (7-18); BUN/Creat Ratio 4.4 RATIO (10-20); Calcium,Total 9.7 mg/dL (8.5-10.1); Chloride 100 mmol/L (98-107); Creatinine, Serum 2.96 mg/dL (0.70-1.30); EST Glomerular Filtration Rate 22 mL/min (>60); Est Glom Filt Rate - Afr Amer 26 mL/min (>60); Estimated Creatinine Clearance 14.72 ml/min; Glucose 92 mg/dL (74-106); Potassium 3.4 mmol/L (3.5-5.1); Sodium Level 137 mmol/L (136-145)
--- NOTE | 2019-08-16 06:09 | US_ITS ---
PROCEDURE: ULTRASOUND GUIDED THORACENTESIS. DATE: August 16, 2019. INDICATION: Male, 79 years old. Right pleural effusion. PHYSICIAN: Alek Lewis M.D. PROCEDURE: The risks, benefits, and alternatives to the procedure were explained to the patient. The specific risks of bleeding, infection, and pneumothorax requiring chest tube insertion were discussed and accepted. Written informed consent was obtained. Ultrasonographic evaluation of the right lower pleural space was carried out. An adequate pocket was identified. The patient was placed in the sitting, upright position. The overlying skin was prepped and draped in sterile fashion. 1% lidocaine was administered subcutaneously for local anesthesia. Under ultrasound guidance, a 5 Beninese thoracentesis needle/catheter system was advanced into the right posterior lower pleural fluid collection. Approximately 870 mL of kadeem-colored fluid was drained. The catheter was removed, and a sterile dressing was applied. A 120 mL specimen was collected and sent to the laboratory for analysis, as requested by the referring clinician. The patient tolerated the procedure well. A chest x-ray was ordered. US/Thoracentesis W US IMPRESSION: Ultrasound-guided right thoracentesis. Electronically Signed: Alek Lewis, at 13:59 EDT , Service support ,
[2019-08-16 06:30] LABS: ALB/GLOB Ratio 0.6 RATIO (0.9-2.4); Globulin 3.5 g/dL (2.2-4.2); Protein, Total 5.6 g/dL (6.4-8.2)
[2019-08-16] MEDS: Ipratropium/Albuterol Sulfate 3 ML AMPUL.NEB INHALATION ×2 (07:20→19:08)
--- NOTE | 2019-08-16 09:53 | PN.RENAL_ITS ---
Subjective: no new events - Physical Exam General: Alert, Oriented x3, Cooperative HEENT: Atraumatic, PERRLA, EOMI, Normocephalic Neck: Supple, No JVD, Negative Carotid Bruits Lungs: Clear to auscultation, Normal air movement Cardiovascular: Regular rate, No murmurs Abdomen: Bowel Sounds Present, Soft, Non Tender Extremities: No edema, Capillary Refill Less than 3 Seconds Skin: No rashes, No breakdown Musculoskeletal: No Tenderness to Palpation of Joints or Extremities Neurological: Cranial nerves II-XII grossly intact Psych/Mental Status: Normal Affect, Appropriate Vital Signs Temp Pulse Resp BP Pulse Ox 97.6 F L 84 16 113/54 L 90 08/16/19 03:45 08/16/19 07:20 08/16/19 07:20 08/16/19 03:45 08/16/19 07:20 Oxygen Flow Rate (L/min) 1 Oxygen Delivery Method Room Air Weight: 84 kg Body Mass Index (BMI) 36.1 Finger Stick Blood Glucose 116 Intake and Output for Last 24 Hours 08/14/19 08/15/19 08/16/19 23:59 23:59 23:59 Intake Total 220 / 220 875 / 875 Output Total 1400 / 1400 Balance -1180 / -1180 875 / 875 Microbiology Past 72 Hours 08/13/19 17:46 Gram Stain - Final Sputum, Expectorated/Coughed Respiratory Culture - Final Meth. resistant Staph. aureus Presumptive C albicans 08/12/19 12:30 Blood Culture - Preliminary Blood Culture (Wb) - Right Hand No growth in 48 hours. 08/12/19 11:55 Blood Culture - Preliminary Blood Culture (Wb) - Anticubital Right No growth in 48 hours. 08/13/19 03:00 Urine Culture - Final Urine, Clean Catch Mixed Gram Positive Organisms 08/13/19 03:00 Legionella Antigen - Final Urine, Clean Catch 08/13/19 03:00 Streptococcus pneumoniae Antigen (M - Final Urine, Clean Catch 08/12/19 19:16 Respiratory Panel (PCR) - Final Mucosa - Nose Laboratory Tests Past 24 Hrs 08/15/19 08/16/19 08/16/19 17:50 05:33 05:33 PT 15.1 H INR 1.2 Sodium 137 Potassium 3.4 L Chloride 100 Carbon Dioxide 31.0 Anion Gap 6 BUN 13 Creatinine 2.96 H Estim Creat Clear Calc 14.72 Est GFR (MDRD) Af Amer 26 L Est GFR (MDRD) Non-Af 22 L BUN/Creatinine Ratio 4.4 L Glucose 92 Calcium 9.7 Lactate Dehydrogenase Total Protein Globulin Albumin/Globulin Ratio MRSA (PCR) POSITIVE H 08/16/19 05:33 PT INR Sodium Potassium Chloride Carbon Dioxide Anion Gap BUN Creatinine Estim Creat Clear Calc Est GFR (MDRD) Af Amer Est GFR (MDRD) Non-Af BUN/Creatinine Ratio Glucose Calcium Lactate Dehydrogenase 132 Total Protein 5.6 L Globulin 3.5 Albumin/Globulin Ratio 0.6 L MRSA (PCR) Medical Necessity - Tobacco Use Smoking Status: Former smoker Assessment/Plan All Active Problems (Last Reviewed 01/24/19 @ 05:59 by Al Gatica MD) Problem with dialysis access (Resolved) Hypercalcemia (Acute) SIRS (systemic inflammatory response syndrome) (Resolved) Acute viral bronchitis (Resolved) Generalized weakness (Resolved) Generalized weakness (Resolved) Recurrent falls (Resolved) Transient expressive aphasia (Resolved) Near syncope (Resolved) Hypotension (Resolved) ESRD. on HD mwf Anemia. DEAN with HD Hypercalcemia. patient has known history of B cell lymphoma. He sees Dr Pena at [facility]. gets periodic bisphosphonate infusions for hypercalcemia. CT chest reviewed. seems like he has multiple lung masses. not sure if this is related to lymphoma. spoke to his Phyllis over phone. she will make an appt with Dr pena to discuss results
--- NOTE | 2019-08-16 09:54 | PCM.RX.CS ---
Consult Pharmacy has been consulted to manage selected antiobiotic: Vancomycin Type of Consult: Follow-up Suspected Infection: Pneumonia Prior Doses of Antibiotics Received/Current Regimen: Received 1000mg IV x1 on 08/12/19 at 14:00 and 1250mg IV x1 yesterday on 08/15/19 at 18:00. Labs: Sodium 137 mmol/L (136-145) 08/16/19 05:33 Potassium 3.4 mmol/L (3.5-5.1) L 08/16/19 05:33 Chloride 100 mmol/L (98-107) 08/16/19 05:33 Carbon Dioxide 31.0 mmol/L (21.0-32.0) 08/16/19 05:33 Anion Gap 6 (5-15) 08/16/19 05:33 BUN 13 mg/dL (7-18) 08/16/19 05:33 Creatinine 2.96 mg/dL (0.70-1.30) H 08/16/19 05:33 Est GFR (MDRD) Af Amer 26 mL/min (>60) L 08/16/19 05:33 Est GFR (MDRD) Non-Af 22 mL/min (>60) L 08/16/19 05:33 BUN/Creatinine Ratio 4.4 RATIO (10-20) L 08/16/19 05:33 Glucose 92 mg/dL (74-106) 08/16/19 05:33 Microbiology: Microbiology 08/13/19 17:46 Sputum, Expectorated/Coughed Gram Stain - Final 08/13/19 17:46 Sputum, Expectorated/Coughed Respiratory Culture - Final Meth. resistant Staph. aureus Presumptive C albicans 08/12/19 12:30 Blood Culture (Wb) - Right Hand Blood Culture - Preliminary No growth in 48 hours. 08/12/19 11:55 Blood Culture (Wb) - Anticubital Right Blood Culture - Preliminary No growth in 48 hours. 08/13/19 03:00 Urine, Clean Catch Urine Culture - Final Mixed Gram Positive Organisms 08/13/19 03:00 Urine, Clean Catch Legionella Antigen - Final 08/13/19 03:00 Urine, Clean Catch Streptococcus pneumoniae Antigen (M - Final 08/12/19 19:16 Mucosa - Nose Respiratory Panel (PCR) - Final Weight used for dosin kg Goal Trough: 10-15 mcg/mL Pharmacy Plan for Drug Dosing: The patient received an initial dose of vancomycin 1000mg IV x1 on 08/12/19 at 14:00 (the patient also refused dialysis that day). Yesterday, the patient received a 2nd dose of vancomycin (1250mg IV x1 at 18:00) after dialysis. Per our vancomycin dosing protocol for dialysis patients, any further dosing will be guided by pre-dialysis vancomycin random levels, which will start tomorrow as the patient is on a Mo/We/Fr dialysis scheduled. Pharmacy Service will continue to monitor and adjust dosing as required. Follow-Up Labs: Trough Vancomycin - random pre-dialysis Labs to be done on [date and time ordered]: 08/17/19 06:00
--- NOTE | 2019-08-16 10:03 | PN_ITS ---
<Toyin Sow - Last Filed: 08/16/19 10:44> Subjective: Patient seen and examined. Drowsy during assessment. Does not appear to be in significant respiratory distress. Oxygen stable on room air. - Physical Exam General: No apparent distress, - - lethargic HEENT: Atraumatic, PERRLA, EOMI, Normocephalic Oral: Dry Mucosa Neck: Supple, No JVD, Negative Carotid Bruits Lungs: Diminished, Rhonchi Cardiovascular: Regular rate, Regular Rhythm, Normal S1, Normal S2, No murmurs Abdomen: Bowel Sounds Present, Soft, Non Tender, Non-Distended Extremities: No clubbing, No cyanosis Skin: No rashes, No breakdown Musculoskeletal: No Tenderness to Palpation of Joints or Extremities Neurological: Cranial nerves II-XII grossly intact, Neuro grossly intact Psych/Mental Status: Normal Affect, Appropriate Vital Signs Temp Pulse Resp BP Pulse Ox 97.6 F L 84 16 113/54 L 90 08/16/19 03:45 08/16/19 07:20 08/16/19 07:20 08/16/19 03:45 08/16/19 07:20 Oxygen Flow Rate (L/min) 1 Oxygen Delivery Method Room Air Weight: 185 lb 3.013 oz Body Mass Index (BMI) 36.1 Finger Stick Blood Glucose 116 Intake and Output for Last 24 Hours 08/14/19 08/15/19 08/16/19 23:59 23:59 23:59 Intake Total 220 / 220 875 / 875 Output Total 1400 / 1400 Balance -1180 / -1180 875 / 875 Microbiology Past 72 Hours 08/13/19 17:46 Gram Stain - Final Sputum, Expectorated/Coughed Respiratory Culture - Final Meth. resistant Staph. aureus Presumptive C albicans 08/12/19 12:30 Blood Culture - Preliminary Blood Culture (Wb) - Right Hand No growth in 48 hours. 08/12/19 11:55 Blood Culture - Preliminary Blood Culture (Wb) - Anticubital Right No growth in 48 hours. 08/13/19 03:00 Urine Culture - Final Urine, Clean Catch Mixed Gram Positive Organisms 08/13/19 03:00 Legionella Antigen - Final Urine, Clean Catch 08/13/19 03:00 Streptococcus pneumoniae Antigen (M - Final Urine, Clean Catch 08/12/19 19:16 Respiratory Panel (PCR) - Final Mucosa - Nose Laboratory Tests Past 24 Hrs 08/15/19 08/16/19 08/16/19 17:50 05:33 05:33 PT 15.1 H INR 1.2 Sodium 137 Potassium 3.4 L Chloride 100 Carbon Dioxide 31.0 Anion Gap 6 BUN 13 Creatinine 2.96 H Estim Creat Clear Calc 14.72 Est GFR (MDRD) Af Amer 26 L Est GFR (MDRD) Non-Af 22 L BUN/Creatinine Ratio 4.4 L Glucose 92 Calcium 9.7 Lactate Dehydrogenase Total Protein Globulin Albumin/Globulin Ratio MRSA (PCR) POSITIVE H 08/16/19 05:33 PT INR Sodium Potassium Chloride Carbon Dioxide Anion Gap BUN Creatinine Estim Creat Clear Calc Est GFR (MDRD) Af Amer Est GFR (MDRD) Non-Af BUN/Creatinine Ratio Glucose Calcium Lactate Dehydrogenase 132 Total Protein 5.6 L Globulin 3.5 Albumin/Globulin Ratio 0.6 L MRSA (PCR) Medical Necessity - Tobacco Use Smoking Status: Former smoker Assessment/Plan All Active Problems (Last Reviewed 01/24/19 @ 05:59 by Al Gatica MD) Problem with dialysis access (Resolved) Hypercalcemia (Acute) SIRS (systemic inflammatory response syndrome) (Resolved) Acute viral bronchitis (Resolved) Generalized weakness (Resolved) Generalized weakness (Resolved) Recurrent falls (Resolved) Transient expressive aphasia (Resolved) Near syncope (Resolved) Hypotension (Resolved) 1. Acute hypoxic respiratory insufficiency secondary to MRSA pneumonia and multiple pulmonary masses, right pleural effusion-sputum culture showed MRSA. Oxygen currently stable on room air. Albuterol and DuoNeb aerosols. Continue IV vancomycin. Walking pulse ox prior to discharge. 2. Multiple pulmonary masses, right pleural effusion-right lower lobe with mass consolidation measuring 11 x 9 cm. Numerous other pulmonary masses bilaterally demonstrated on CT. Small to moderate right effusion. Mediastinal and hilar lymphadenopathy. Patient has followed with Dr. Pena in the past. Will consult for further recommendations. Pulmonary medicine following. Thoracentesis ordered. 3. End-stage renal disease on hemodialysis-nephrology following. Continue current dialysis regimen. 4. Hypercalcemia-resolved with dialysis. 5. Anemia of chronic disease-stable, trend CBC. 6. B-cell lymphoma, chronic- previously followed with Dr. Pena. Refused recent follow up. 7. BPH- continue tamsulosin. 8. Hypertension-stable, continue home medication regimen. DVT prophylaxis- Lovenox sc CODE STATUS: DNR CCA This patient was seen by Toyin Sow NP-C under the supervision of Dr. Diaz. <Fausto Diaz - Last Filed: 08/16/19 14:52> Subjective: F/U lung mass. Denies shortness of breath. Coughing, but non-productive. - Physical Exam General: No apparent distress, - HEENT: Atraumatic, Normocephalic Neck: Supple, Negative Carotid Bruits Lungs: Diminished, - - diminished in RLL Cardiovascular: Regular rate, Regular Rhythm, Normal S1 Extremities: No clubbing, No cyanosis Psych/Mental Status: Normal Affect, Appropriate Vital Signs Temp Pulse Resp BP Pulse Ox 36.6 C 92 18 116/52 L 96 08/16/19 11:02 08/16/19 13:06 08/16/19 13:06 08/16/19 13:06 08/16/19 11:02 Oxygen Flow Rate (L/min) 1 Oxygen Delivery Method [2] Room Air Oxygen Delivery Method [1 ( Room Air Initial Baseline)] Oxygen Delivery Method Room Air Weight: 84 kg Body Mass Index (BMI) 36.1 Finger Stick Blood Glucose 116 Intake and Output for Last 24 Hours 08/14/19 08/15/19 08/16/19 23:59 23:59 23:59 Intake Total 220 / 220 875 / 875 180 / 180 Output Total 1400 / 1400 Balance -1180 / -1180 875 / 875 180 / 180 Microbiology Past 72 Hours 08/13/19 17:46 Gram Stain - Final Sputum, Expectorated/Coughed Respiratory Culture - Final Meth. resistant Staph. aureus Presumptive C albicans 08/12/19 12:30 Blood Culture - Preliminary Blood Culture (Wb) - Right Hand No growth in 48 hours. 08/12/19 11:55 Blood Culture - Preliminary Blood Culture (Wb) - Anticubital Right No growth in 48 hours. 08/13/19 03:00 Urine Culture - Final Urine, Clean Catch Mixed Gram Positive Organisms 08/13/19 03:00 Legionella Antigen - Final Urine, Clean Catch 08/13/19 03:00 Streptococcus pneumoniae Antigen (M - Final Urine, Clean Catch 08/12/19 19:16 Respiratory Panel (PCR) - Final Mucosa - Nose Laboratory Tests Past 24 Hrs 09/08/16/19 08/16/19 17:50 05:33 05:33 PT 15.1 H INR 1.2 Sodium 137 Potassium 3.4 L Chloride 100 Carbon Dioxide 31.0 Anion Gap 6 BUN 13 Creatinine 2.96 H Estim Creat Clear Calc 14.72 Est GFR (MDRD) Af Amer 26 L Est GFR (MDRD) Non-Af 22 L BUN/Creatinine Ratio 4.4 L Glucose 92 Calcium 9.7 Lactate Dehydrogenase 137 Total Protein Globulin Albumin/Globulin Ratio Fluid Glucose Fluid Total Protein Fluid LDH MRSA (PCR) POSITIVE H 08/16/19 08/16/19 05:33 13:25 PT INR Sodium Potassium Chloride Carbon Dioxide Anion Gap BUN Creatinine Estim Creat Clear Calc Est GFR (MDRD) Af Amer Est GFR (MDRD) Non-Af BUN/Creatinine Ratio Glucose Calcium Lactate Dehydrogenase Cancelled Total Protein 5.6 L Globulin 3.5 Albumin/Globulin Ratio 0.6 L Fluid Glucose 84 H Fluid Total Protein 3.7 Fluid LDH 295 MRSA (PCR) Assessment/Plan Patient seen and examined independently. Data reviewed. I agree with the above note by the nurse practitioner. 1. Acute hypoxic respiratory insufficiency * Secondary to pneumonia as well as lung mass and pleural effusion 2. MRSA pneumonia: Continue with vancomycin 3. Lung mass: Concern for this being recurrence of his lymphoma. Thoracentesis ordered and oncology on consult. Code Visit Inpatient E&M: 25410 Subs Hosp L2
--- NOTE | 2019-08-16 10:14 | CON.PCM_ITS ---
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 (7) Morbid obesity Status: Chronic (8) Benign prostatic hypertrophy Status: Chronic Qualifiers: Lower urinary tract symptom presence: unspecified whether lower urinary tract symptoms present Qualified Code(s): N40.0 - Benign prostatic hyperplasia without lower urinary tract symptoms (9) Hypertension Status: Chronic Qualifiers: Hypertension type: essential hypertension Qualified Code(s): I10 - Essential (primary) hypertension (10) Nephrotic syndrome Status: Chronic Reason for Consult Date of Consultation: 08/16/19 Reason for Consultation: Dyspnea History of Present Illness: The patient is a 79 year old M, with past medical history listed below, who presented with [facility] on 08/12/2019 secondary to shortness of breath, fever and generalized weakness. Patient does have a history of end-stage renal disease and is normally on dialysis Thursday, Thursday and Thursday. Patient came to the ER instead of his dialysis after being evaluated by his PCP. At that time, patient was noted to have a T-max of 100.6 ?F and had been reported 2 to 3 days of progressive shortness of breath, myalgias and arthralgias. Patient reported a mild cough that was nonproductive. Patient did not have any chest pain or orthopnea at that time. In the ER, patient was noted to have rales on exam and requiring supplemental oxygen. Patient was initiated on the sepsis work-up and chest x-ray showed a right-sided pleural effusion and probable infiltrate. Patient was admitted to the hospital with a diagnosis of right lower lobe pneumonia and hypoxia. Patient has been on the floor with antibiotics for 3 days, but saturations have improved to the point the patient is on room air. There was some concern for the pleural effusion, so a pulmonary consult was obtained. Patient was not very cooperative with my evaluation. Patient states that he does not wake up until 11:00. Patient states that he feels fine with his breathing and denies any chest pain. Patient is unable to provide any meaningful history beyond the electronic medical record. Patient is not reporting any abdominal pain, nausea or vomiting. Patient is unclear if he is ever had appropriate cancer screening. Patient does report a history of smoking and multiple surgeries in the past, but denies any alcohol or drugs. Patient is unable to give an occupational history. Patient reportedly is on Lasix at baseline along with management secondary to hypotension. Patient is not cooperative with review of systems on my evaluation. Majority of the information obtained was from the electronic medical record. Past Medical History Past Medical History (Chronic Problems): Chronic Problems (Last Reviewed 01/24/19 @ 05:59 by Al Gatica MD) ESRD (end stage renal disease) (Chronic) 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) Morbid obesity (Chronic) Benign prostatic hypertrophy (Chronic) Hypertension (Chronic) Nephrotic syndrome (Chronic) Medical History: Medical History (Last Reviewed 01/24/19 @ 05:59 by Al Gatica MD) ESRD (end stage renal disease) (Chronic) N18.6 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) Morbid obesity (Chronic) E66.01 Benign prostatic hypertrophy (Chronic) N40.0 Hypertension (Chronic) I10 Nephrotic syndrome (Chronic) N04.9 Allergies Sulfa (Sulfonamide Antibiotics) Allergy (Severe, Verified 08/12/19 11:27) Hives Home Medications: Ambulatory Orders Medication Instructions Recorded Tamsulosin HCl [Flomax] 0.4 mg PO BID 10/23/16 Midodrine HCl [Proamatine] 10 mg PO MOWEFR 06/17/18 Nepro Liquid [Nepro Carb Steady] 120 ml PO BID 06/30/18 Acetaminophen [Tylenol Tablet] 650 mg PO Q6H PRN PRN tab 09/16/18 Bmx Liquid 5 ml PO Q4H PRN PRN 01/24/19 Ondansetron [Zofran Odt] 4 mg PO Q6H PRN PRN 01/24/19 Oxycodone [Oxyir] 5 mg PO Q8H PRN PRN #9 tab 01/27/19 Furosemide [Lasix] 80 mg PO BID 08/12/19 Sevelamer Carbonate [Renvela] 1,600 mg PO TID 08/12/19 Surgical History: Surgical History (Last Reviewed 01/24/19 @ 05:59 by Al Gatica MD) 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 Melanoma resection. Psychiatric History: No pertinent psych hx Smoking Status: Former smoker Alcohol: None Drugs: None - *Family History Maternal History Items: - - Unknown Paternal History Items: Heart Disease, - Review of Systems Unable to obtain accurate/complete ROS d/t: See HPI Objective: CT scan of the chest was personally reviewed. Patient does have a moderate right-sided pleural effusion with right lower lobe collapse, mediastinal lymphadenopathy and hilar adenopathy. Patient also has what appears to be cannonball lesions on the left along with multiple nodules. Patient does have an echocardiogram from 06/30/2018 that was notable for a an EF of 55% with moderately enlarged left atrium and pulmonary artery systolic pressure of 42 mmHg. Patient did have focal aortic valve calcification. No pulmonary function tests are available for review. - Physical Exam General: Alert, Well developed, Well nourished, Non-Cooperative, - - Obese. No accessory muscle use noted. HEENT: Atraumatic, PERRLA, EOMI, Normocephalic, - - No scleral icterus or injection Oral: Moist Mucosa, No Gingival or Mucosal Lesions/ Ulcerations Neck: Supple, No JVD, No Nodes, Trachea Midline Lungs: No rhonchi, No wheeze, No rales, Diminished, - - Poor effort. Unable to examine posteriorly Cardiovascular: Regular rate, Regular Rhythm, Normal S1, Normal S2, No murmurs, No rub noted, No Gallop Abdomen: Bowel Sounds Present, Soft, Distended - Slightly, Obese Extremities: No clubbing, No cyanosis, No edema, Capillary Refill Less than 3 Seconds Skin: No rashes, No breakdown Musculoskeletal: No Tenderness to Palpation of Joints or Extremities Lymphatic: No Cervical, Supraclavicular, or Inguinal Adenopathy Neurological: Cranial nerves II-XII grossly intact, Neuro grossly intact - Limited secondary to cooperation Psych/Mental Status: Flat Affect Vital Signs Temp Pulse Resp BP Pulse Ox 36.4 C L 84 16 113/54 L 90 08/16/19 03:45 08/16/19 07:20 08/16/19 07:20 08/16/19 03:45 08/16/19 07:20 Oxygen Flow Rate (L/min) 1 Oxygen Delivery Method Room Air Weight: 84 kg Body Mass Index (BMI) 36.1 Finger Stick Blood Glucose 116 Intake and Output for Last 24 Hours 08/14/19 08/15/19 08/16/19 23:59 23:59 23:59 Intake Total 220 / 220 875 / 875 Output Total 1400 / 1400 Balance -1180 / -1180 875 / 875 Microbiology Past 72 Hours 08/13/19 17:46 Gram Stain - Final Sputum, Expectorated/Coughed Respiratory Culture - Final Meth. resistant Staph. aureus Presumptive C albicans 08/12/19 12:30 Blood Culture - Preliminary Blood Culture (Wb) - Right Hand No growth in 48 hours. 08/12/19 11:55 Blood Culture - Preliminary Blood Culture (Wb) - Anticubital Right No growth in 48 hours. 08/13/19 03:00 Urine Culture - Final Urine, Clean Catch Mixed Gram Positive Organisms 08/13/19 03:00 Legionella Antigen - Final Urine, Clean Catch 08/13/19 03:00 Streptococcus pneumoniae Antigen (M - Final Urine, Clean Catch 08/12/19 19:16 Respiratory Panel (PCR) - Final Mucosa - Nose Laboratory Tests Past 24 Hrs 08/15/19 08/16/19 08/16/19 17:50 05:33 05:33 PT 15.1 H INR 1.2 Sodium 137 Potassium 3.4 L Chloride 100 Carbon Dioxide 31.0 Anion Gap 6 BUN 13 Creatinine 2.96 H Estim Creat Clear Calc 14.72 Est GFR (MDRD) Af Amer 26 L Est GFR (MDRD) Non-Af 22 L BUN/Creatinine Ratio 4.4 L Glucose 92 Calcium 9.7 Lactate Dehydrogenase Total Protein Globulin Albumin/Globulin Ratio MRSA (PCR) POSITIVE H 08/16/19 05:33 PT INR Sodium Potassium Chloride Carbon Dioxide Anion Gap BUN Creatinine Estim Creat Clear Calc Est GFR (MDRD) Af Amer Est GFR (MDRD) Non-Af BUN/Creatinine Ratio Glucose Calcium Lactate Dehydrogenase 132 Total Protein 5.6 L Globulin 3.5 Albumin/Globulin Ratio 0.6 L MRSA (PCR) Clinical Impression(s) from Imaging Studies Chest X-Ray 08/12/19 11:43 IMPRESSION: Moderate right pleural fluid and suspicious bibasilar interstitial infiltrates. Deeper inspiratory chest and lateral view will help clarify. If patient is unable to take deeper inspiratory effort, CT chest will be more helpful for further evaluation. Electronically Signed: Chapin Chiang MD at 11:58 EDT , Service support , Chest X-Ray 08/14/19 05:55 IMPRESSION: 1. Mild increase in loculated left pleural effusion and associated left pulmonary opacity. 2. Unchanged retrocardiac opacity. 3. Left mid lung nodular density. PA and lateral radiographs or chest CT recommended for further evaluation when the patient is able. at 0707 Reported and signed by: Mone Castaneda MD Electronically Signed: Mone Castaneda MD at 7:07 EDT Tel , Service support , Chest X-Ray 08/15/19 05:55 IMPRESSION: Small right pleural effusion with underlying bibasilar atelectasis is more prominent on the right side. Electronically Signed: Alek Lewis, at 10:58 EDT , Service support , Chest CT 08/16/19 05:55 IMPRESSION: In the right lower lobe, there is a masslike consolidation which is more suspicious for a malignant process then compressive consolidation. This area measures roughly 11 x 9 cm. There are numerous other pulmonary masses bilaterally, second largest is in the left lower lobe. Findings are concerning for malignancy. Small to moderate right effusion is noted. Mediastinal and hilar lymphadenopathy Electronically Signed: Chadd Fontana DO at 8:48 EDT Tel , Service support , Assessment/Plan All Active Problems (Last Reviewed 01/24/19 @ 05:59 by Al Gatica MD) Problem with dialysis access (Resolved) Hypercalcemia (Acute) SIRS (systemic inflammatory response syndrome) (Resolved) Acute viral bronchitis (Resolved) Generalized weakness (Resolved) Generalized weakness (Resolved) Recurrent falls (Resolved) Transient expressive aphasia (Resolved) Near syncope (Resolved) Hypotension (Resolved) RECOMMENDATIONS: 1. Obtain diagnostic and therapeutic thoracentesis 2. Consider ABG if not improving from mental status standpoint later today 3. Agree with empiric antibiotic therapy 4. Further recommendations following thoracentesis results IMPRESSIONS: 1. Acute hypoxic respiratory insufficiency secondary to possible staph aureus pneumonia CT scan shows a moderate pleural effusion with hilar adenopathy and possible cannonball lesions. This can be seen in staph aureus endocarditis/pneumonia and also malignancy. Would recommend obtaining a diagnostic and therapeutic thoracentesis for evaluation. She does have a history of B-cell lymphoma in the past and has refused follow-up with Dr. Pena. If pleural fluid shows a lymphocytic predominance, this would be consistent with malignancy and goals of therapy may need to be discussed with family. If neutrophilic predominance, this would be suggestive of parapneumonic versus empyema and patient may require cardiothoracic evaluation if aggressive measures are requested. Patient does have chronic kidney disease, so transudate of process is possible, but this would not explain cannonball lesions on the left side 2. End-stage renal disease on hemodialysis Patient appears to be overall euvolemic from a pulmonary perspective. Nephrology is following. Defer hemodialysis to their direction. 3. Hypercalcemia May be secondary to end-stage renal disease, but another possibility would be a paraneoplastic syndrome. This can be seen with various lung malignancies and patient does have a smoking history. 4. Generalized weakness/poor historian/recurrent falls/debility Comp locates care, management, recovery and prognosis. Patient is currently DNR CC arrest, but CODE STATUS may need to be addressed if found to have malignancy from the lung as this would indicate stage IV and a very poor long-term prognosis. Code Visit Inpatient E&M: 65330 Init Hosp L3
[2019-08-16] MEDS: SEVELAMER CARBONATE 800 MG TABLET 1600 MG PO ×2 (11:12→17:15)
[2019-08-16] MEDS: Furosemide 80 MG Tablet PO ×2 (11:13→17:15)
[2019-08-16] MEDS: Tamsulosin HCl 0.4 MG Capsule PO ×2 (11:13→22:34)
--- NOTE | 2019-08-16 12:57 | RAD_ITS ---
STUDY: X-RAY CHEST REASON FOR EXAM: Male, 79 years old. Status post right thoracentesis. TECHNIQUE: AP inspiration and expiration views. COMPARISON: Comparison is made with prior examination dated August 15, 2019. FINDINGS: The patient is status post right thoracentesis. Small residual right pleural effusion. Persistent mass or consolidation in the right lower lobe. RAD/Chest Insp/Exp 2 View IMPRESSION: Status post right thoracentesis. There is no evidence of pneumothorax. Electronically Signed: Alek Lewis, at 13:58 EDT , Service support ,
--- NOTE | 2019-08-16 13:54 | NURSING ---
returned from procedure. resting quietly in bed, at bedside. pt denies needs at this time
[2019-08-16 13:55] LABS: LDH 137 U/L (87-241)
[2019-08-16 14:27] LABS: Glucose, Body Fluid 84 mg/dL (40-70); LDH,Body Fluid 295 Units/l (Not Establ.); Protein, Body Fluid 3.7 g/dL (Not Establ.)
[2019-08-16] MEDS: Enoxaparin 30 MG/0.3 ML Syringe SC (20:03)
--- NOTE | 2019-08-16 22:45 | FLU_PTH ---
PATIENT: ANSLEY OLIVAS LOC: [facility] U#:[id number] AGE/SX: 79/M ROOM: [facility] RE08/12/[address]: Dr. Fausto Diaz DO : 1940 BED: 1 DIS: 08/17/2019 SPEC #: [id number] RECD: 08/17/19 09:47 STATUS: SOUT REQ #: [id number] CHEN: 08/16/19 22:[address]: Aneesh De Jesus DEPT: CYTOLOGY RECD BY: Tyrel Todd ENTERED: 08/17/19 09:47 SP TYPE: Fluid OTHR DR: DO Dr. Dona Frausto MD Dr. Nana Yaa Koram, MD Dr. Paul Masci, DO Tissues: THORACIC FLUID Procedures: Special Stain Group II Surgery Specimen Level IV Cytospin Fluid Comments: @ Ordering doctor for SSII edited from to @ by SARWAT at 08/17/19947 @ Ordering doctor for SUIV edited from to @ by SARWAT at 08/17/19947 @ Ordering doctor for CYSPIN edited from to @ by SARWAT at 08/17/19947 @ Submitting doctor edited from to @ by SARWAT at 08/17/19947 HEADER OPERATION: Ultrasound-guided thoracentesis PRE-OP DIAGNOSIS: Right pleural effusion TISSUE SUBMITTED: Thoracentesis fluid for cytology DIAGNOSIS CYTOLOGY Thoracentesis fluid for cytology (cytospin and cell block): Polymorphous lymphocytes present. See comment. JESSICA:damian 08/18/19 COMMENT Immunohistochemistry ([id number]) supports the above diagnosis. The lymphocytic infiltrate consists primarily of small T- cell lymphocytes. CYTOLOGY STUDY Slides are reviewed. CYTOLOGY GROSS Received is 55 ml of cloudy yellow fluid labeled with the patient's name and and designated per the requisition as thoracentesis. Submitted for cytology preparation including cell block. / damian 08/17/19 TC:5 CPT: 44757, 15180
[2019-08-16 23:00] LABS: Cytology, Body Fluid / CSF SEE PATHOLOGY REPORT
[2019-08-17] VITALS (9 sets, daily range): BP systolic 100–120; BP diastolic 45–64; PULSE 75–96; RESP 16–20; TEMP 36.7–36.8; O2SAT 94–99
[2019-08-17 06:28] LABS: Anion Gap 9 (5-15); BUN 25 mg/dL (7-18); BUN/Creat Ratio 5.9 RATIO (10-20); Calcium,Total 11.5 mg/dL (8.5-10.1); Chloride 98 mmol/L (98-107); Creatinine, Serum 4.21 mg/dL (0.70-1.30); EST Glomerular Filtration Rate 15 mL/min (>60); Est Glom Filt Rate - Afr Amer 18 mL/min (>60); Estimated Creatinine Clearance 10.35 ml/min; Glucose 107 mg/dL (74-106); Potassium 3.5 mmol/L (3.5-5.1); Sodium Level 136 mmol/L (136-145)
[2019-08-17] MEDS: Ipratropium/Albuterol Sulfate 3 ML AMPUL.NEB INHALATION (07:05)
--- NOTE | 2019-08-17 08:13 | PCM.RX.CS ---
Consult Pharmacy has been consulted to manage selected antiobiotic: Vancomycin Type of Consult: Follow-up Suspected Infection: Pneumonia Prior Doses of Antibiotics Received/Current Regimen: Received 1250mg iv x1 on 08.15.19. Labs: Sodium 136 mmol/L (136-145) 08/17/19 05:40 Potassium 3.5 mmol/L (3.5-5.1) 08/17/19 05:40 Chloride 98 mmol/L (98-107) 08/17/19 05:40 Carbon Dioxide 29.0 mmol/L (21.0-32.0) 08/17/19 05:40 Anion Gap 9 (5-15) 08/17/19 05:40 BUN 25 mg/dL (7-18) H 08/17/19 05:40 Creatinine 4.21 mg/dL (0.70-1.30) H 08/17/19 05:40 Est GFR (MDRD) Af Amer 18 mL/min (>60) L 08/17/19 05:40 Est GFR (MDRD) Non-Af 15 mL/min (>60) L 08/17/19 05:40 BUN/Creatinine Ratio 5.9 RATIO (10-20) L 08/17/19 05:40 Glucose 107 mg/dL (74-106) H 08/17/19 05:40 Random Vancomycin 17.0 ug/mL (0.0-15.0) H 08/17/19 05:40 Microbiology: Microbiology 08/13/19 17:46 Sputum, Expectorated/Coughed Gram Stain - Final 08/13/19 17:46 Sputum, Expectorated/Coughed Respiratory Culture - Final Meth. resistant Staph. aureus Presumptive C albicans 08/12/19 12:30 Blood Culture (Wb) - Right Hand Blood Culture - Preliminary No growth in 48 hours. 08/12/19 11:55 Blood Culture (Wb) - Anticubital Right Blood Culture - Preliminary No growth in 48 hours. 08/13/19 03:00 Urine, Clean Catch Urine Culture - Final Mixed Gram Positive Organisms 08/13/19 03:00 Urine, Clean Catch Legionella Antigen - Final 08/13/19 03:00 Urine, Clean Catch Streptococcus pneumoniae Antigen (M - Final 08/12/19 19:16 Mucosa - Nose Respiratory Panel (PCR) - Final Weight used for dosin.6 kg Estimated Creatinine Clearance: 10.35 ml/m Goal Trough: 15-20 mcg/mL Pharmacy Plan for Drug Dosing: Random level today was 17.0. Will give 500mg iv x 1 after dialysis session today. Repeat trough level has been ordered for Thu08.19.19. Pharmacy Service will continue to monitor and adjust dosing as required.
--- NOTE | 2019-08-17 08:53 | ONC.CON.INP2 ---
- Problem List (1) Lymphoma Status: Acute Qualifiers: Lymphoma type: non-Hodgkin Non-Hodgkin lymphoma type: B-cell B-cell lymphoma type: unspecified B-cell Lymphoma site: multiple regions Qualified Code(s): C85.18 - Unspecified B-cell lymphoma, lymph nodes of multiple sites Subjective Chief Complaint: fall at home History of Present Illness: Patient seen and examined 08/16/2019. HPI: The patient is a 79 yo male with PMH significant for?hypertension, ESRD, hepatitis?(not treated), basal cell carcinoma, BPH?and squamous cell carcinoma of the skin. ? HD for ~3 years. Was referred for hypercalcemia by his forest fire management officer. A chemistry panel done on 12/28/2018 showed a serum calcium of 12.3 mg/dL. The corrected level was 13 mg/dl. parathyroid hormone was undetectable. Repeat calcium on 01/01 was 11.6 mg/dL. ? He had occasional low back pain. He had generalized weakness of both legs and was not able to climb stairs. Had been diagnosed with monoclonal gammopathy several years ago when living in [place]. Records were not of available at initial evaluation. Repeat evaluation demonstrated a monoclonal protein concentration of 0.48 gram per deciliter. Immunofixation positive for IgM kappa monoclonal protein. Free light chain quantitated at 322.9 mg/L. Lambda 59 mg/L. Ratio elevated. ? 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 CT C/A/P 03/14/2019: IMPRESSION: CHEST: Interval development of multiple new nodules/masses in both lungs, especially involving the right lung base. ?Thoracic lymphadenopathy as detailed involving right hilum, mediastinum, right internal mammary chains. ?Right pleural effusion. ?Findings concerning for neoplasm, such as lymphoproliferative disorder. ABDOMEN/PELVIS: Splenomegaly measuring 18.7 cm. ?No lymphadenopathy. Mild nonspecific mesenteric stranding, possibly related to lymphoproliferative disorder or postsurgical. Received a dose of zoledronic acid and serum calcium corrected. He then went on to receive 4 doses of rituximab given on a weekly schedule. Therapy completed 04/14/2019. When seen in May, he refused further workup and did not want to undergo repeat imaging for response evaluation. He was recently referred back by his forest fire management officer. Appointment was scheduled but then he canceled. I had spoken with the nurse practitioner at the dialysis center several weeks ago. Patient has been declining dialysis over the last several weeks. He had been going but not on a scheduled consistent basis. Presented to the ED on 08/12 with complaints of worsening shortness of breath as well as fever and generalized malaise. He had low-grade temp and chest x-ray showed right sided pleural effusion and possible infiltrate. He was diagnosed with pneumonia and received broad-spectrum antibiotic therapy. Oxygen saturation improved and he is now on room air. CT chest 08/16/2019: Lungs are hypoinflated. There is extensive masslike consolidation in the right lower lobe with air bronchograms. This is suspicious for malignancy and less likely compressive consolidation. [id number] right pleural effusion is noted. There are additional pulmonary masses throughout the left lung, largest is in the left lower lobe measuring 4.4 x 4.6 cm. Additional pulmonary masses noted bilaterally. Normal heart and pericardium. Prominent subcarinal lymph node and bulky right hilar lymphadenopathy, subcarinal lymph node measures 1.9 cm. Normal unenhanced pulmonary arteries. Normal aorta arch and descending thoracic aorta. Normal osseous structures. There is no demonstrated abnormality of the visualized upper abdomen. IMPRESSION: In the right lower lobe, there is a masslike consolidation which is more suspicious for a malignant process then compressive consolidation. This area measures roughly 11 x 9 cm. There are numerous other pulmonary masses bilaterally, second largest is in the left lower lobe. Findings are concerning for malignancy. Small to moderate right effusion is noted. Mediastinal and hilar lymphadenopathy Underwent thoracentesis earlier today. He 170 cc of kadeem-colored fluid was drained. 120 cc specimen was sent for cytology. He had no complaints. He is breathing comfortably on room air. He has underlying dementia and denies many symptoms on review of systems. 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) Morbid obesity (Chronic) Benign prostatic hypertrophy (Chronic) Hypertension (Chronic) Nephrotic syndrome (Chronic) Past Medical/Surgical History: Past Medical History - Most Recent Inpatient Visit Past Medical History Start: 08/12/19 14:59 Text: Status: Complete Freq: ONCE Protocol: Document 08/12/19 15:49 JL (Rec: 08/12/19 15:52 TARA [id number]) BMI Required to complete PMH What is Patient's BMI 36.2 Past Medical History Unable History Recalled Yes: pt not good historian Query Text:Pt Unable/Family Not Present Neurologic Medical History Hx Stroke/TIA Yes: family denies Hx Dementia/Alzheimer's No Hx Parkinson's Disease No Hx Seizures No Hx Multiple Sclerosis No Hx Migraines No Cardiac Medical History VTE Present on Admission No Hx of Deep Vein Thrombosis/VTE/PE Yes: diagnosed 11/12 Hx Hypertension Yes: controlled on meds Hx Chest Pain/Angina No Hx Heart Attack No Hx Cardiac Surgery/Stents/Etc. No Hx Heart Failure No Hx Pacemaker/AICD No Hx Irregular Heartbeat and/or Afib No Hx Anticoagulant Therapy No Query Text:(Coumadin, Aspirin, Plavix, Xarelto, etc.) Hx Pain in Legs when Walking/Leg Cramps No Respiratory Medical History Hx COPD No Hx Emphysema No Hx Smoking Yes: quit 1979 Smoking Status Former smoker Hx Smoking Cessation Counseling Yes Hx Smoking Exposure Yes Hx Tobacco Use in last 12 months No Hx of Pipe Smoking No Hx Sleep Apnea No CPAP No BIPAP No Do you snore loudly (louder than talking No or can be heard through closed doors)? Do you often feel tired/ fatigued/ No sleepy during daytime? Has anyone observed you stop breathing No during sleep? STOP Results Negative GI Medical History Hx Ulcer No Hx Hepatitis Yes: HEP C OF 10/2016 Hx Cirrhosis No Hx GI Bleed No Hx Unplanned Weight Loss No Genitourinary Medical History Indwelling Catheter in Place on Arrival/ No Admission Hx Renal Disease Yes: CKD STAGE 4 Hx Dialysis Yes: MON, WED, THU Musculoskeletal History Hx Arthritis Yes: KNEES, rt knee replacement Hx Rheumatoid Arthritis No Endocrine Medical History Hx Diabetes No Hx Thyroid Disease No Hematologic Medical History Hx of Blood Transfusion No Hx of Transfusion in last 3 Months No Ever experience any problems with No transfusion(s)? Hx of Preganancy in last 3 Months N/A Nurse Filling Out Transfusion & JLENDON Questions: Date: 08/12/19 Time: 15:51 Psycho/Social Medical History Hx Depression No Hx Anxiety No Hx Behavior Disorder No Hx Alcohol Use No Hx Substance Use No Other Medical History Hx Blood Disorders No Hx Anemia Yes Hx Cancer Yes: SKIN CANCERS-melanoma Hx Drug Resistant Organism No Wound/Pressure Injury Present on Arrival No /Admission Query Text:If yes, chart assessment in Shift/Clinical Findings Central Line/PICC/VAD Present on Arrival No /Admission Methicillin Resistant Staphylococcus aureus Screening Active MRSA No Risk for Readmission Number of Risk Factors 6 At Risk for Readmission Patient is At Risk For Readmission Patient is eligible for Call Back Y Past Medical History (Last Reviewed 01/24/19 @ 05:59 by Al Gatica MD) ESRD (end stage renal disease) (Chronic) 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) Morbid obesity (Chronic) Benign prostatic hypertrophy (Chronic) Hypertension (Chronic) Nephrotic syndrome (Chronic) Past Surgical History (Last Reviewed 01/24/19 @ 05:59 by Al Gatica MD) Presence of surgically created arteriovenous shunt for hemodialysis (Acute) Maternal Family History: - - Unknown Paternal Family History: Heart Disease, - - Social History Smoking Status: Former smoker Alcohol: None Drugs: None Allergies/Adverse Reactions: Allergy/AdvReac Type Severity Reaction Status Date / Time Sulfa (Sulfonamide Allergy Severe Hives Verified 08/12/19 11:27 Antibiotics) Vital Signs Height 1.55 m Weight: 85.6 kg Weight in Pounds 188.7 lbs Pulse Ox 95 Temperature 98.3 F Pulse Rate [2] 102 Pulse Rate [1 (Initial 92 Baseline)] Pulse Rate 92 Respiratory Rate [2] 18 Respiratory Rate [1 (Initial 18 Baseline)] Respiratory Rate 16 Blood Pressure [2] 120/55 Blood Pressure [1 (Initial 116/52 Baseline)] Blood Pressure 112/47 Blood Pressure Position Semi-Fowlers - Physical Exam Cardiac:: Regular rhythm Lungs: - - diminished intensity of air entry in all baer. Absent breath sounds right base. Few coarse rhonchi appreciated. Clear with cough. Lymphatics:: - - he has no palpable cervical or significant adenopathy. Laboratory Data: Microbiology 08/16/19 13:25 Gram Stain - Final Fluid - Thoracentesis Fluid 08/13/19 17:46 Gram Stain - Final Sputum, Expectorated/Coughed Respiratory Culture - Final Meth. resistant Staph. aureus Presumptive C albicans 08/12/19 12:30 Blood Culture - Preliminary Blood Culture (Wb) - Right Hand No growth in 48 hours. 08/12/19 11:55 Blood Culture - Preliminary Blood Culture (Wb) - Anticubital Right No growth in 48 hours. 08/13/19 03:00 Urine Culture - Final Urine, Clean Catch Mixed Gram Positive Organisms Laboratory Tests 08/17/19 08/17/19 08/16/19 Range/Units 05:40 05:40 13:25 Sodium 136 (136-145) mmol/L Potassium 3.5 (3.5-5.1) mmol/L Chloride 98 (98-107) mmol/L Carbon Dioxide 29.0 (21.0-32.0) mmol/L Anion Gap 9 (5-15) BUN 25 H (7-18) mg/dL Creatinine 4.21 H (0.70-1.30) mg/dL Estim Creat Clear Calc 10.35 ml/min Est GFR (MDRD) Af Amer 18 L (>60) mL/min Est GFR (MDRD) Non-Af 15 L (>60) mL/min BUN/Creatinine Ratio 5.9 L (10-20) RATIO Glucose 107 H (74-106) mg/dL Calcium 11.5 H (8.5-10.1) mg/dL Lactate Dehydrogenase (87-241) U/L Fluid Source Cancelled Fluid Color Cancelled Fluid Appearance Cancelled Fluid WBC Cancelled Fluid RBC Cancelled Fluid Tot Cell Count Cancelled Fld Polynuclear WBCs # Cancelled Fld Polynuclear WBCs % Cancelled Fluid Mononuclear WBCs Cancelled Fld Mononuclear WBCs % Cancelled Fluid Neutrophils Cancelled Fluid Lymphocytes Cancelled Fluid Monocytes Cancelled Fluid Plasma Cells Cancelled Fluid Macrophages Cancelled Fld Mesothelial Cells Cancelled Fluid Other Cells Cancelled Fl Pathologist Comment Cancelled Fluid Glucose (40-70) mg/dL Fluid Total Protein (Not Establ.) g/dL Fluid LDH (Not Establ.) Units/l Fluid Comment 2 Cancelled Random Vancomycin 17.0 H (0.0-15.0) ug/mL 08/16/19 08/16/19 08/16/19 Range/Units 13:25 05:33 05:33 Sodium (136-145) mmol/L Potassium (3.5-5.1) mmol/L Chloride (98-107) mmol/L Carbon Dioxide (21.0-32.0) mmol/L Anion Gap (5-15) BUN (7-18) mg/dL Creatinine (0.70-1.30) mg/dL Estim Creat Clear Calc ml/min Est GFR (MDRD) Af Amer (>60) mL/min Est GFR (MDRD) Non-Af (>60) mL/min BUN/Creatinine Ratio (10-20) RATIO Glucose (74-106) mg/dL Calcium (8.5-10.1) mg/dL Lactate Dehydrogenase Cancelled 137 (87-241) U/L Fluid Source Fluid Color Fluid Appearance Fluid WBC Fluid RBC Fluid Tot Cell Count Fld Polynuclear WBCs # Fld Polynuclear WBCs % Fluid Mononuclear WBCs Fld Mononuclear WBCs % Fluid Neutrophils Fluid Lymphocytes Fluid Monocytes Fluid Plasma Cells Fluid Macrophages Fld Mesothelial Cells Fluid Other Cells Fl Pathologist Comment Fluid Glucose 84 H (40-70) mg/dL Fluid Total Protein 3.7 (Not Establ.) g/dL Fluid LDH 295 (Not Establ.) Units/l Fluid Comment 2 Random Vancomycin (0.0-15.0) ug/mL Diagnostic Data: Diagnostic Data Chest CT 08/16/19 05:55 IMPRESSION: In the right lower lobe, there is a masslike consolidation which is more suspicious for a malignant process then compressive consolidation. This area measures roughly 11 x 9 cm. There are numerous other pulmonary masses bilaterally, second largest is in the left lower lobe. Findings are concerning for malignancy. Small to moderate right effusion is noted. Mediastinal and hilar lymphadenopathy Electronically Signed: Chadd Fontana DO at 8:48 EDT Tel , Service support , Thoracentesis Ultrasound 08/16/19 06:09 IMPRESSION: Ultrasound-guided right thoracentesis. Electronically Signed: Alek Lewis, at 13:59 EDT , Service support , Chest X-Ray 08/16/19 12:57 IMPRESSION: Status post right thoracentesis. There is no evidence of pneumothorax. 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 Assessment: -In summary the patient is an 79-year-old male dialysis patient who underwent evaluation for hypercalcemia. Workup including bone marrow biopsy as well as the findings on the CT scan of the chest, abdomen and pelvis in February of this year, i.e. splenomegaly along with multinodular pulmonary parenchymal involvement and mediastinal and hilar adenopathy suggested advanced, symptomatic lymphoplasmacytic lymphoma. Patient received a course of single agent rituximab but then declined response evaluation and follow-up thereafter. Now admitted for progressive dyspnea and weakness with radiographic findings of worsening right-sided pleural effusion along with progressive disease. -Pleural fluid potentially secondary to transudate from missed dialysis, but awaiting cytology currently. -I discussed things with his last evening. She still desires aggressive management. Plan: -Await cytology on pleural fluid. If negative then consider biopsy of one of the peripheral pulmonary masses, i.e. pleural-based on left side in order to have clearer understanding of goals of care to review with him and his . Medications: Prescriptions This Visit Medication Instructions Recorded Furosemide [Lasix] 80 mg PO BID 08/12/19 Sevelamer Carbonate [Renvela] 1,600 mg PO TID 08/12/19 Medications Added to Medication List This Visit Category Date Time Status Vancomycin IV Med 08/17/19 16:00 Active 500 mg in 100 ml IV X1 Primary Care Provider: Dona Santiago MD Referring Provider: Amanda Castillo MD
--- NOTE | 2019-08-17 10:15 | PCM.PN.PUL ---
Patient Problems: Active and Suspected Problems (Last Reviewed 01/24/19 @ 05:59 by Al Gatica MD) Lymphoma (Acute) Subjective: Patient did well overnight. Patient did have a thoracentesis yesterday with 870 cc removed. Unfortunately, it appears the cell count was canceled by the lab for unclear reasons. Patient reports no subjective change in overall condition. Patient does remain on room air. - Physical Exam General: Alert, Cooperative, No apparent distress, Disoriented, - - No conversational dyspnea. HEENT: Atraumatic, PERRLA, EOMI, Normocephalic, - - No scleral icterus or injection noted. Oral: Moist Mucosa, No Gingival or Mucosal Lesions/ Ulcerations Neck: Supple, No JVD, No Nodes, Trachea Midline Lungs: No rhonchi, No wheeze, No rales, Diminished Cardiovascular: Regular rate, Regular Rhythm, Normal S1, Normal S2, No murmurs, No rub noted, No Gallop Abdomen: Bowel Sounds Present, Soft, Non Tender, Non-Distended, Obese Extremities: No clubbing, No cyanosis, Edema Skin: - - No significant change compared to previous Musculoskeletal: No Tenderness to Palpation of Joints or Extremities Lymphatic: No Cervical, Supraclavicular, or Inguinal Adenopathy Neurological: Cranial nerves II-XII grossly intact, Neuro grossly intact, Motor Exam 5/5 strength throughout Psych/Mental Status: Flat Affect Vital Signs Temp Pulse Resp BP Pulse Ox 36.8 C 95 16 120/47 L 95 08/17/19 09:37 08/17/19 09:37 08/17/19 09:37 08/17/19 09:37 08/17/19 09:37 Oxygen Flow Rate (L/min) 1 Oxygen Delivery Method [2] Room Air Oxygen Delivery Method [1 ( Room Air Initial Baseline)] Oxygen Delivery Method Room Air Weight: 85.6 kg Body Mass Index (BMI) 36.1 Finger Stick Blood Glucose 116 Intake and Output for Last 24 Hours 08/15/19 08/16/19 08/17/19 23:59 23:59 23:59 Intake Total 875 / 875 880 / 880 240 / 240 Balance 875 / 875 880 / 880 240 / 240 Microbiology Past 72 Hours 08/16/19 13:25 Gram Stain - Final Fluid - Thoracentesis Fluid 08/13/19 17:46 Gram Stain - Final Sputum, Expectorated/Coughed Respiratory Culture - Final Meth. resistant Staph. aureus Presumptive C albicans 08/12/19 12:30 Blood Culture - Preliminary Blood Culture (Wb) - Right Hand No growth in 48 hours. 08/12/19 11:55 Blood Culture - Preliminary Blood Culture (Wb) - Anticubital Right No growth in 48 hours. 08/13/19 03:00 Urine Culture - Final Urine, Clean Catch Mixed Gram Positive Organisms Laboratory Tests Past 24 Hrs 08/16/19 08/16/19 08/16/19 05:33 05:33 13:25 Sodium Potassium Chloride Carbon Dioxide Anion Gap BUN Creatinine Estim Creat Clear Calc Est GFR (MDRD) Af Amer Est GFR (MDRD) Non-Af BUN/Creatinine Ratio Glucose Calcium Lactate Dehydrogenase 137 Cancelled Fluid Source Fluid Color Fluid Appearance Fluid WBC Fluid RBC Fluid Tot Cell Count Fld Polynuclear WBCs # Fld Polynuclear WBCs % Fluid Mononuclear WBCs Fld Mononuclear WBCs % Fluid Neutrophils Fluid Lymphocytes Fluid Monocytes Fluid Plasma Cells Fluid Macrophages Fld Mesothelial Cells Fluid Other Cells Fl Pathologist Comment Fluid Glucose 84 H Fluid Total Protein 3.7 Fluid LDH 295 Fluid Comment 2 Random Vancomycin Miscellaneous Cytology 08/16/19 08/16/19 08/17/19 13:25 13:25 05:40 Sodium Potassium Chloride Carbon Dioxide Anion Gap BUN Creatinine Estim Creat Clear Calc Est GFR (MDRD) Af Amer Est GFR (MDRD) Non-Af BUN/Creatinine Ratio Glucose Calcium Lactate Dehydrogenase Fluid Source Cancelled Fluid Color Cancelled Fluid Appearance Cancelled Fluid WBC Cancelled Fluid RBC Cancelled Fluid Tot Cell Count Cancelled Fld Polynuclear WBCs # Cancelled Fld Polynuclear WBCs % Cancelled Fluid Mononuclear WBCs Cancelled Fld Mononuclear WBCs % Cancelled Fluid Neutrophils Cancelled Fluid Lymphocytes Cancelled Fluid Monocytes Cancelled Fluid Plasma Cells Cancelled Fluid Macrophages Cancelled Fld Mesothelial Cells Cancelled Fluid Other Cells Cancelled Fl Pathologist Comment Cancelled Fluid Glucose Fluid Total Protein Fluid LDH Fluid Comment 2 Cancelled Random Vancomycin 17.0 H Miscellaneous Cytology Pending 08/17/19 05:40 Sodium 136 Potassium 3.5 Chloride 98 Carbon Dioxide 29.0 Anion Gap 9 BUN 25 H Creatinine 4.21 H Estim Creat Clear Calc 10.35 Est GFR (MDRD) Af Amer 18 L Est GFR (MDRD) Non-Af 15 L BUN/Creatinine Ratio 5.9 L Glucose 107 H Calcium 11.5 H Lactate Dehydrogenase Fluid Source Fluid Color Fluid Appearance Fluid WBC Fluid RBC Fluid Tot Cell Count Fld Polynuclear WBCs # Fld Polynuclear WBCs % Fluid Mononuclear WBCs Fld Mononuclear WBCs % Fluid Neutrophils Fluid Lymphocytes Fluid Monocytes Fluid Plasma Cells Fluid Macrophages Fld Mesothelial Cells Fluid Other Cells Fl Pathologist Comment Fluid Glucose Fluid Total Protein Fluid LDH Fluid Comment 2 Random Vancomycin Miscellaneous Cytology Clinical Impression(s) from Imaging Studies Thoracentesis Ultrasound 08/16/19 06:09 IMPRESSION: Ultrasound-guided right thoracentesis. Electronically Signed: Alek Lewis, at 13:59 EDT , Service support , Chest X-Ray 08/16/19 12:57 IMPRESSION: Status post right thoracentesis. There is no evidence of pneumothorax. Electronically Signed: Alek Lewis, at 13:58 EDT , Service support , Medical Necessity - Tobacco Use Smoking Status: Former smoker Assessment/Plan All Active Problems (Last Reviewed 01/24/19 @ 05:59 by Al Gaitca MD) Lymphoma (Acute) Problem with dialysis access (Resolved) Hypercalcemia (Acute) SIRS (systemic inflammatory response syndrome) (Resolved) Acute viral bronchitis (Resolved) Generalized weakness (Resolved) Generalized weakness (Resolved) Recurrent falls (Resolved) Transient expressive aphasia (Resolved) Near syncope (Resolved) Hypotension (Resolved) RECOMMENDATIONS: 1. Empiric antibiotics for 7 to 10 days 2. Follow-up on culture and cytology as an outpatient 3. Increase activity as tolerated 4. Okay to follow-up with oncology as an outpatient for test results. IMPRESSIONS: 1. Acute hypoxic respiratory insufficiency secondary to possible staph aureus pneumonia Pleural effusion is consistent with an exudate by light's criteria. Unfortunately, cytology and culture were sent, but cell count was not completed. Differential not available for qualification of possible exudate standard. Given lymphadenopathy and left-sided lesions, malignancy would be the most likely etiology. Patient did have sputum positive for MRSA, so a course of 7 to 10 days of empiric antibiotics would be appropriate if there is some concern. Would expect patient to have much more constitutional symptoms with staph pneumonia that he has presented with during hospitalization. 2. End-stage renal disease on hemodialysis Patient appears to be overall euvolemic from a pulmonary perspective. Nephrology is following. Defer hemodialysis to their direction. 3. Hypercalcemia May be secondary to end-stage renal disease, but another possibility would be a paraneoplastic syndrome. This can be seen with various lung malignancies and patient does have a smoking history. 4. Generalized weakness/poor historian/recurrent falls/debility Comp locates care, management, recovery and prognosis. Patient is currently DNR CC arrest, but CODE STATUS may need to be addressed if found to have malignancy from the lung as this would indicate stage IV and a very poor long-term prognosis. Code Visit Inpatient E&M: 85366 Subs Hosp L2
--- NOTE | 2019-08-17 10:29 | PN.RENAL_ITS ---
Patient Problems: Active and Suspected Problems (Last Reviewed 01/24/19 @ 05:59 by Al Gatica MD) Lymphoma (Acute) Subjective: no new events - Physical Exam General: Alert, Oriented x3, Cooperative HEENT: Atraumatic, PERRLA, EOMI, Normocephalic Neck: Supple, No JVD, Negative Carotid Bruits Lungs: Clear to auscultation, Normal air movement Cardiovascular: Regular rate, No murmurs Abdomen: Bowel Sounds Present, Soft, Non Tender Extremities: No edema, Capillary Refill Less than 3 Seconds Skin: No rashes, No breakdown Musculoskeletal: No Tenderness to Palpation of Joints or Extremities Neurological: Cranial nerves II-XII grossly intact Psych/Mental Status: Normal Affect, Appropriate Vital Signs Temp Pulse Resp BP Pulse Ox 98.2 F 95 16 120/47 L 95 08/17/19 09:37 08/17/19 09:37 08/17/19 09:37 08/17/19 09:37 08/17/19 09:37 Oxygen Flow Rate (L/min) 1 Oxygen Delivery Method [2] Room Air Oxygen Delivery Method [1 ( Room Air Initial Baseline)] Oxygen Delivery Method Room Air Weight: 85.6 kg Body Mass Index (BMI) 36.1 Finger Stick Blood Glucose 116 Intake and Output for Last 24 Hours 08/15/19 08/16/19 08/17/19 23:59 23:59 23:59 Intake Total 875 / 875 880 / 880 240 / 240 Balance 875 / 875 880 / 880 240 / 240 Microbiology Past 72 Hours 08/16/19 13:25 Gram Stain - Final Fluid - Thoracentesis Fluid 08/13/19 17:46 Gram Stain - Final Sputum, Expectorated/Coughed Respiratory Culture - Final Meth. resistant Staph. aureus Presumptive C albicans 08/12/19 12:30 Blood Culture - Preliminary Blood Culture (Wb) - Right Hand No growth in 48 hours. 08/12/19 11:55 Blood Culture - Preliminary Blood Culture (Wb) - Anticubital Right No growth in 48 hours. 08/13/19 03:00 Urine Culture - Final Urine, Clean Catch Mixed Gram Positive Organisms Laboratory Tests Past 24 Hrs 08/16/19 08/16/19 08/16/19 05:33 05:33 13:25 Sodium Potassium Chloride Carbon Dioxide Anion Gap BUN Creatinine Estim Creat Clear Calc Est GFR (MDRD) Af Amer Est GFR (MDRD) Non-Af BUN/Creatinine Ratio Glucose Calcium Lactate Dehydrogenase 137 Cancelled Fluid Source Fluid Color Fluid Appearance Fluid WBC Fluid RBC Fluid Tot Cell Count Fld Polynuclear WBCs # Fld Polynuclear WBCs % Fluid Mononuclear WBCs Fld Mononuclear WBCs % Fluid Neutrophils Fluid Lymphocytes Fluid Monocytes Fluid Plasma Cells Fluid Macrophages Fld Mesothelial Cells Fluid Other Cells Fl Pathologist Comment Fluid Glucose 84 H Fluid Total Protein 3.7 Fluid LDH 295 Fluid Comment 2 Random Vancomycin Miscellaneous Cytology 08/16/19 08/16/19 08/17/19 13:25 13:25 05:40 Sodium Potassium Chloride Carbon Dioxide Anion Gap BUN Creatinine Estim Creat Clear Calc Est GFR (MDRD) Af Amer Est GFR (MDRD) Non-Af BUN/Creatinine Ratio Glucose Calcium Lactate Dehydrogenase Fluid Source Cancelled Fluid Color Cancelled Fluid Appearance Cancelled Fluid WBC Cancelled Fluid RBC Cancelled Fluid Tot Cell Count Cancelled Fld Polynuclear WBCs # Cancelled Fld Polynuclear WBCs % Cancelled Fluid Mononuclear WBCs Cancelled Fld Mononuclear WBCs % Cancelled Fluid Neutrophils Cancelled Fluid Lymphocytes Cancelled Fluid Monocytes Cancelled Fluid Plasma Cells Cancelled Fluid Macrophages Cancelled Fld Mesothelial Cells Cancelled Fluid Other Cells Cancelled Fl Pathologist Comment Cancelled Fluid Glucose Fluid Total Protein Fluid LDH Fluid Comment 2 Cancelled Random Vancomycin 17.0 H Miscellaneous Cytology Pending 08/17/19 05:40 Sodium 136 Potassium 3.5 Chloride 98 Carbon Dioxide 29.0 Anion Gap 9 BUN 25 H Creatinine 4.21 H Estim Creat Clear Calc 10.35 Est GFR (MDRD) Af Amer 18 L Est GFR (MDRD) Non-Af 15 L BUN/Creatinine Ratio 5.9 L Glucose 107 H Calcium 11.5 H Lactate Dehydrogenase Fluid Source Fluid Color Fluid Appearance Fluid WBC Fluid RBC Fluid Tot Cell Count Fld Polynuclear WBCs # Fld Polynuclear WBCs % Fluid Mononuclear WBCs Fld Mononuclear WBCs % Fluid Neutrophils Fluid Lymphocytes Fluid Monocytes Fluid Plasma Cells Fluid Macrophages Fld Mesothelial Cells Fluid Other Cells Fl Pathologist Comment Fluid Glucose Fluid Total Protein Fluid LDH Fluid Comment 2 Random Vancomycin Miscellaneous Cytology Medical Necessity - Tobacco Use Smoking Status: Former smoker Assessment/Plan All Active Problems (Last Reviewed 01/24/19 @ 05:59 by Al Gatica MD) Lymphoma (Acute) Problem with dialysis access (Resolved) Hypercalcemia (Acute) SIRS (systemic inflammatory response syndrome) (Resolved) Acute viral bronchitis (Resolved) Generalized weakness (Resolved) Generalized weakness (Resolved) Recurrent falls (Resolved) Transient expressive aphasia (Resolved) Near syncope (Resolved) Hypotension (Resolved) ESRD. on HD mwf Anemia. DEAN with HD Hypercalcemia. patient has known history of B cell lymphoma. He sees Dr Pena at [facility]. gets periodic bisphosphonate infusions for hypercalcemia. CT chest reviewed. seems like he has multiple lung masses. not sure if this is related to lymphoma. Dr Pena note reviewed.
--- NOTE | 2019-08-17 11:39 | DCINST_ITS ---
- Discharge Diagnoses Current Active Problems: Current Active and Chronic Problems (Last Reviewed 01/24/19 @ 05:59 by Al Gatica MD) Acute hypoxic respiratory insufficiency You will use the following diet at home:: Renal (restricted protein/sodium) Discharge Activity: Return to Normal Activity Call your doctor if you observe: Shortness of breath, Dizziness, Fainting spells, Chest pain Allergies/Adverse Reactions: Allergies Sulfa (Sulfonamide Antibiotics) Allergy (Severe, Verified 08/12/19 11:27) Hives Medications to take at Discharge Tamsulosin HCl [Flomax] 0.4 mg PO BID 10/23/16 Midodrine HCl [Proamatine] 10 mg PO MOWEFR 06/17/18 Nepro Liquid [Nepro Carb Steady] 120 ml PO BID 06/30/18 Acetaminophen [Tylenol Tablet] 650 mg PO Q6H PRN PRN tab 09/16/18 Bmx Liquid 5 ml PO Q4H PRN PRN 01/24/19 Ondansetron [Zofran Odt] 4 mg PO Q6H PRN PRN 01/24/19 Oxycodone [Oxyir] 5 mg PO Q8H PRN PRN #9 tab 01/27/19 Furosemide [Lasix] 80 mg PO BID 08/12/19 Sevelamer Carbonate [Renvela] 1,600 mg PO TID 08/12/19 Doxycycline 100 mg PO BID #8 cap 08/17/19 The following prescriptions were given: Doxycycline 100 mg PO BID #8 cap Transmission Status: Pending to [facility] Primary Care Physician: Dona Santiago MD [Primary Care Provider] - Please follow up with your Primary Care Physician in: 1 Week Test Results: Test results from this visit will be discussed in further detail at your follow- up appointment, if applicable. Please Follow Up With: Aneesh De Jesus MD When: 1-2 Weeks, May see SALES ACCOUNT EXECUTIVE Please Follow Up With: Mary Beth Cabrera MD When: Continue dialysis regimen as scheduled Please Follow Up With: Williams Pena DO When: 1 Week Proposed Discharge Date: 08/17/19
--- NOTE | 2019-08-17 12:00 | PCM.DC.SUM ---
<Toyin Sow - Last Filed: 08/17/19 12:21> Discharge Date and Diagnosis Date of Admission: 08/12/19 Date of Discharge: 08/17/19 - Primary Discharge Diagnosis Active and Suspected Problems (Last Reviewed 01/24/19 @ 05:59 by Al Gatica MD) 1. Acute hypoxic respiratory insufficiency secondary to MRSA pneumonia, multiple pulmonary masses, right pleural effusion 2. Multiple pulmonary masses, right pleural effusion 3. End-stage renal disease on hemodialysis 4. Hypercalcemia 5. 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 BPH 8. 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 This area measures roughly 11 x 9 cm. There are numerous other pulmonary masses bilaterally, second largest is in the left lower lobe. Findings are concerning for malignancy. Small to moderate right effusion is noted. Mediastinal and hilar lymphadenopathy Electronically Signed: Chadd Fontana DO at 8:48 EDT Tel , Service support , Thoracentesis Ultrasound 08/16/19 06:09 IMPRESSION: Ultrasound-guided right thoracentesis. Electronically Signed: Alek Lewis, at 13:59 EDT , Service support , Chest X-Ray 08/16/19 12:57 IMPRESSION: Status post right thoracentesis. There is no evidence of pneumothorax. Electronically Signed: Alek Lewis, at 13:58 EDT , Service support , Dr. De Jesus- Pulmonary Medicine Dr. Pena- Oncology Dr. Cabrera- nephrology Operations: None, TURP Procedures: Dialysis, Thoracentesis Summary of Care Provided: The patient is a 79 year old M admitted 08/12/2018 due to shortness of breath, generalized weakness. 1. Acute hypoxic respiratory insufficiency secondary to MRSA pneumonia, multiple pulmonary masses, right pleural effusion-sputum culture showed MRSA. Oxygen currently stable on room air. Patient did not require further supplemental oxygen. IV vancomycin during admission. Based on sputum culture, discharge on oral doxycycline to complete 10 days of antibiotic therapy. 2. Multiple pulmonary masses, right pleural effusion-right lower lobe with mass consolidation measuring 11 x 9 cm. Numerous other pulmonary masses bilaterally demonstrated on CT. Small to moderate right effusion. Mediastinal and hilar lymphadenopathy. Patient has followed with Dr. Pena in the past. Patient underwent thoracentesis with removal of 870 mL kadeem-colored fluid. Suspect pleural fluid transudate secondary to missed dialysis, however final cytology pending. Cell count not completed. Malignancy cannot be ruled out. Follow-up with pulmonary medicine and oncology in 1 week. 3. End-stage renal disease on hemodialysis-continue dialysis regimen, nephrology follow-up. 4. Hypercalcemia-resolved with dialysis. 5. Anemia of chronic disease-stable. 6. Lymphoplasmacytic lymphoma and Waldenstr?m's [id number] with Dr. Pena 1 week. 7. BPH- continue tamsulosin. 8. Hypertension-stable, continue home medication regimen. General: No apparent distress, alert, oriented HEENT: Atraumatic, PERRLA, EOMI, Normocephalic Oral: Dry Mucosa Neck: Supple, No JVD, Negative Carotid Bruits Lungs: Diminished, Rhonchi Cardiovascular: Regular rate, Regular Rhythm, Normal S1, Normal S2, No murmurs Abdomen: Bowel Sounds Present, Soft, Non Tender, Non-Distended Extremities: No clubbing, No cyanosis Skin: No rashes, No breakdown Musculoskeletal: No Tenderness to Palpation of Joints or Extremities Neurological: Cranial nerves II-XII grossly intact, Neuro grossly intact Psych/Mental Status: Normal Affect, Appropriate Patient seen and examined prior to discharge. Physical assessment as noted above. Patient is stable for discharge with follow up recommendations as noted above. This patient was seen by Toyin Juanjose, HUMIDIFIER MAINTENANCE WORKER-C under the supervision of Dr. Diaz. - Physical Exam Vital Signs Temp Pulse Resp BP Pulse Ox 98.2 F 95 16 120/47 L 95 08/17/19 09:37 08/17/19 09:37 08/17/19 09:37 08/17/19 09:37 08/17/19 09:37 Oxygen Flow Rate (L/min) 1 Oxygen Delivery Method [2] Room Air Oxygen Delivery Method [1 ( Room Air Initial Baseline)] Oxygen Delivery Method Room Air Weight: 188 lb 11.451 oz Body Mass Index (BMI) 36.1 Finger Stick Blood Glucose 116 Intake and Output for Last 24 Hours 08/15/19 08/16/19 08/17/19 23:59 23:59 23:59 Intake Total 875 / 875 880 / 880 240 / 240 Balance 875 / 875 880 / 880 240 / 240 Microbiology Past 72 Hours 08/16/19 13:25 Gram Stain - Final Fluid - Thoracentesis Fluid 08/13/19 17:46 Gram Stain - Final Sputum, Expectorated/Coughed Respiratory Culture - Final Meth. resistant Staph. aureus Presumptive C albicans 08/12/19 12:30 Blood Culture - Preliminary Blood Culture (Wb) - Right Hand No growth in 48 hours. 08/12/19 11:55 Blood Culture - Preliminary Blood Culture (Wb) - Anticubital Right No growth in 48 hours. 08/13/19 03:00 Urine Culture - Final Urine, Clean Catch Mixed Gram Positive Organisms Laboratory Tests Past 24 Hrs 08/16/19 08/16/19 08/16/19 05:33 05:33 13:25 Sodium Potassium Chloride Carbon Dioxide Anion Gap BUN Creatinine Estim Creat Clear Calc Est GFR (MDRD) Af Amer Est GFR (MDRD) Non-Af BUN/Creatinine Ratio Glucose Calcium Lactate Dehydrogenase 137 Cancelled Fluid Source Fluid Color Fluid Appearance Fluid WBC Fluid RBC Fluid Tot Cell Count Fld Polynuclear WBCs # Fld Polynuclear WBCs % Fluid Mononuclear WBCs Fld Mononuclear WBCs % Fluid Neutrophils Fluid Lymphocytes Fluid Monocytes Fluid Plasma Cells Fluid Macrophages Fld Mesothelial Cells Fluid Other Cells Fl Pathologist Comment Fluid Glucose 84 H Fluid Total Protein 3.7 Fluid LDH 295 Fluid Comment 2 Random Vancomycin Miscellaneous Cytology 08/16/19 08/16/19 08/17/19 13:25 13:25 05:40 Sodium Potassium Chloride Carbon Dioxide Anion Gap BUN Creatinine Estim Creat Clear Calc Est GFR (MDRD) Af Amer Est GFR (MDRD) Non-Af BUN/Creatinine Ratio Glucose Calcium Lactate Dehydrogenase Fluid Source Cancelled Fluid Color Cancelled Fluid Appearance Cancelled Fluid WBC Cancelled Fluid RBC Cancelled Fluid Tot Cell Count Cancelled Fld Polynuclear WBCs # Cancelled Fld Polynuclear WBCs % Cancelled Fluid Mononuclear WBCs Cancelled Fld Mononuclear WBCs % Cancelled Fluid Neutrophils Cancelled Fluid Lymphocytes Cancelled Fluid Monocytes Cancelled Fluid Plasma Cells Cancelled Fluid Macrophages Cancelled Fld Mesothelial Cells Cancelled Fluid Other Cells Cancelled Fl Pathologist Comment Cancelled Fluid Glucose Fluid Total Protein Fluid LDH Fluid Comment 2 Cancelled Random Vancomycin 17.0 H Miscellaneous Cytology Pending 08/17/19 05:40 Sodium 136 Potassium 3.5 Chloride 98 Carbon Dioxide 29.0 Anion Gap 9 BUN 25 H Creatinine 4.21 H Estim Creat Clear Calc 10.35 Est GFR (MDRD) Af Amer 18 L Est GFR (MDRD) Non-Af 15 L BUN/Creatinine Ratio 5.9 L Glucose 107 H Calcium 11.5 H Lactate Dehydrogenase Fluid Source Fluid Color Fluid Appearance Fluid WBC Fluid RBC Fluid Tot Cell Count Fld Polynuclear WBCs # Fld Polynuclear WBCs % Fluid Mononuclear WBCs Fld Mononuclear WBCs % Fluid Neutrophils Fluid Lymphocytes Fluid Monocytes Fluid Plasma Cells Fluid Macrophages Fld Mesothelial Cells Fluid Other Cells Fl Pathologist Comment Fluid Glucose Fluid Total Protein Fluid LDH Fluid Comment 2 Random Vancomycin Miscellaneous Cytology Discharge Diet: Renal Diet Discharge Activity: Return to Normal Activity Call your doctor if you observe: Shortness of breath, Dizziness, Fainting spells, Chest pain Home Medications: Medications to take at Discharge Tamsulosin HCl [Flomax] 0.4 mg PO BID 10/23/16 Midodrine HCl [Proamatine] 10 mg PO MOWEFR 06/17/18 Nepro Liquid [Nepro Carb Steady] 120 ml PO BID 06/30/18 Acetaminophen [Tylenol Tablet] 650 mg PO Q6H PRN PRN tab 09/16/18 Bmx Liquid 5 ml PO Q4H PRN PRN 01/24/19 Ondansetron [Zofran Odt] 4 mg PO Q6H PRN PRN 01/24/19 Oxycodone [Oxyir] 5 mg PO Q8H PRN PRN #9 tab 01/27/19 Furosemide [Lasix] 80 mg PO BID 08/12/19 Sevelamer Carbonate [Renvela] 1,600 mg PO TID 08/12/19 Doxycycline 100 mg PO BID #8 cap 08/17/19 Following Prescrptions Were Given to Patient: Doxycycline 100 mg PO BID #8 cap Transmission Status: Received by [facility] Primary Care Physician: Dona Santiago MD [Primary Care Provider] - Please follow up with your Primary Care Physician in: 1 Week Please Follow Up With: Aneesh De Jesus MD When: 1-2 Weeks, May see HUMIDIFIER MAINTENANCE WORKER Please Follow Up With: Mary Beth Cabrera MD When: Continue dialysis regimen as scheduled Please Follow Up With: Williams Pena DO When: 1 Week Disposition: Home Minutes spent on discharge:: 35 Patient Condition:: Stable Medical Necessity - Tobacco Use Smoking Status: Former smoker Meaningful Use Info Meaningful Use Diagnoses (Choose all that apply): None applicable <Fausto Diaz - Last Filed: 08/17/19 15:46> Discharge Date and Diagnosis - Secondary Discharge Diagnosis Chronic Problems (Last Reviewed 01/24/19 @ 05:59 by Al Gatica MD) ESRD (end stage renal disease) (Chronic) 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 Data reviewed. I agree with the above note by the nurse practitioner. 1. Acute hypoxic respiratory insufficiency Secondary to pneumonia as well as lung mass and pleural effusion 2. MRSA pneumonia: Continue with vancomycin 3. Lung mass: Concern for this being recurrence of his lymphoma. Thoracentesis ordered and oncology on consult. 4. Pleural effusion: exudative. Patient to follow up with oncology for remainder of the results and cytology. [] - Physical Exam General: Alert HEENT: Atraumatic, Normocephalic Oral: Moist Mucosa, No Gingival or Mucosal Lesions/ Ulcerations Neck: No Nodes, Thyroid Normal Size and Texture Lungs: Clear to auscultation, Normal air movement, No rhonchi, No wheeze Cardiovascular: Regular rate, Regular Rhythm, Normal S1, Normal S2, No murmurs Abdomen: Bowel Sounds Present, Soft, Non Tender, Non-Distended Vital Signs Temp Pulse Resp BP Pulse Ox 36.8 C 96 16 120/47 L 95 08/17/19 09:37 08/17/19 15:00 08/17/19 09:37 08/17/19 09:37 08/17/19 09:37 Oxygen Flow Rate (L/min) 1 Oxygen Delivery Method [2] Room Air Oxygen Delivery Method [1 ( Room Air Initial Baseline)] Oxygen Delivery Method Room Air Weight: 85.6 kg Body Mass Index (BMI) 36.1 Finger Stick Blood Glucose 116 Intake and Output for Last 24 Hours 08/15/19 08/16/19 08/17/19 23:59 23:59 23:59 Intake Total 875 / 875 880 / 880 240 / 240 Balance 875 / 875 880 / 880 240 / 240 Microbiology Past 72 Hours 08/12/19 12:30 Blood Culture - Final Blood Culture (Wb) - Right Hand No growth in 5 days. 08/12/19 11:55 Blood Culture - Final Blood Culture (Wb) - Anticubital Right No growth in 5 days. 08/16/19 13:25 Gram Stain - Final Fluid - Thoracentesis Fluid 08/13/19 17:46 Gram Stain - Final Sputum, Expectorated/Coughed Respiratory Culture - Final Meth. resistant Staph. aureus Presumptive C albicans Laboratory Tests Past 24 Hrs 08/16/19 08/16/19 08/17/19 13:25 13:25 05:40 Sodium Potassium Chloride Carbon Dioxide Anion Gap BUN Creatinine Estim Creat Clear Calc Est GFR (MDRD) Af Amer Est GFR (MDRD) Non-Af BUN/Creatinine Ratio Glucose Calcium Fluid Source Cancelled Fluid Color Cancelled Fluid Appearance Cancelled Fluid WBC Cancelled Fluid RBC Cancelled Fluid Tot Cell Count Cancelled Fld Polynuclear WBCs # Cancelled Fld Polynuclear WBCs % Cancelled Fluid Mononuclear WBCs Cancelled Fld Mononuclear WBCs % Cancelled Fluid Neutrophils Cancelled Fluid Lymphocytes Cancelled Fluid Monocytes Cancelled Fluid Plasma Cells Cancelled Fluid Macrophages Cancelled Fld Mesothelial Cells Cancelled Fluid Other Cells Cancelled Fl Pathologist Comment Cancelled Fluid Comment 2 Cancelled Random Vancomycin 17.0 H Miscellaneous Cytology Pending 08/17/19 05:40 Sodium 136 Potassium 3.5 Chloride 98 Carbon Dioxide 29.0 Anion Gap 9 BUN 25 H Creatinine 4.21 H Estim Creat Clear Calc 10.35 Est GFR (MDRD) Af Amer 18 L Est GFR (MDRD) Non-Af 15 L BUN/Creatinine Ratio 5.9 L Glucose 107 H Calcium 11.5 H Fluid Source Fluid Color Fluid Appearance Fluid WBC Fluid RBC Fluid Tot Cell Count Fld Polynuclear WBCs # Fld Polynuclear WBCs % Fluid Mononuclear WBCs Fld Mononuclear WBCs % Fluid Neutrophils Fluid Lymphocytes Fluid Monocytes Fluid Plasma Cells Fluid Macrophages Fld Mesothelial Cells Fluid Other Cells Fl Pathologist Comment Fluid Comment 2 Random Vancomycin Miscellaneous Cytology Discharge Diet: Renal Diet Discharge Activity: Return to Normal Activity Call your doctor if you observe: Shortness of breath, Dizziness, Fainting spells, Chest pain Disposition: Home Minutes spent on discharge:: 35 Patient Condition:: Stable Medical Necessity - Tobacco Use Smoking Status: Former smoker Meaningful Use Info Meaningful Use Diagnoses (Choose all that apply): None applicable Code Visit Inpatient E&M: 50349 Disch Hosp
--- NOTE | 2019-08-17 12:03 | CASEMGMT ---
LW on file, but not the POA for Healthcare. SW let know who is visiting in the room, pt is sleeping. She states she will bring in the POA for Healthcare form. MARIE Harvey
--- NOTE | 2019-08-17 12:34 | PHA.DC.MC ---
Pharmacy Service has performed discharge medication reconciliation and counseling for this patient. 1. DOXYCYCLINE 100MG PO BID X 4 DAYS The patient's discharge medication list was reviewed for discrepancies and discrepancies were resolved. Home Medications Tamsulosin HCl [Flomax] 0.4 mg PO BID 10/23/16 Midodrine HCl [Proamatine] 10 mg PO MOWEFR 06/17/18 Nepro Liquid [Nepro Carb Steady] 120 ml PO BID 06/30/18 Acetaminophen [Tylenol Tablet] 650 mg PO Q6H PRN PRN tab 09/16/18 Bmx Liquid 5 ml PO Q4H PRN PRN 01/24/19 Ondansetron [Zofran Odt] 4 mg PO Q6H PRN PRN 01/24/19 Oxycodone [Oxyir] 5 mg PO Q8H PRN PRN #9 tab 01/27/19 Furosemide [Lasix] 80 mg PO BID 08/12/19 Sevelamer Carbonate [Renvela] 1,600 mg PO TID 08/12/19 Doxycycline 100 mg PO BID #8 cap 08/17/19 The patient was counseled on the following discharge medications and changes in medications for homegoing were reviewed. The Reason for Use, instructions for use, and potential side effects were reviewed for all new medications. The patient's questions regarding all of their medications were answered. The patient was able to verbally demonstrate an understanding of their discharge medications.
--- NOTE | 2019-08-17 13:11 | NURSING ---
read and reviewed SN documentation
[2019-08-17 17:05] LABS: Bedside Glucose 123 mg/dL (70-110)
[2019-08-17] MEDS: Tamsulosin HCl 0.4 MG Capsule PO (17:11)
[2019-08-17] MEDS: Furosemide 80 MG Tablet PO (17:11)
[2019-08-17] MEDS: SEVELAMER CARBONATE 800 MG TABLET 1600 MG PO (17:11)
--- NOTE | 2019-08-17 17:36 | DIALYSIS ---
Hemodialysis x 3.5hrs today. UF -1000mL removed. Pt tolerated tx well Report to KALLI Parikh. [place] pulled stasis of sites and ressing applied. Pt stable
[2019-08-17] MEDS: Midodrine HCl 5 MG Tablet 10 MG PO (17:37)
== END 2019-08-17 17:30 | disposition home or self-care (01) | DRG 177 ==
LOC: ED 12:09 → PCU 13:48
PROVIDERS: Hospitalist; Internal Medicine; Internal Medicine Critical Care Medicine; Nurse Practitioner Family; Admitting Provider Student in an Organized Health Care Education/Training Program; Emergency Provider Emergency Medicine; Family Provider Internal Medicine; PCP Internal Medicine; Referring Provider Student in an Organized Health Care Education/Training Program
DX: J15.212 Pneumonia due to Methicillin resistant Staphylococcus aureus (principal); N18.6 End stage renal disease; I12.0 Hypertensive chronic kidney disease with stage 5 chronic kidney disease or end stage renal disease; J90 Pleural effusion, not elsewhere classified; C83.00 Small cell B-cell lymphoma, unspecified site; R09.02 Hypoxemia; R06.89 Other abnormalities of breathing; N40.0 Benign prostatic hyperplasia without lower urinary tract symptoms; Z99.2 Dependence on renal dialysis; R91.8 Other nonspecific abnormal finding of lung field; Z87.891 Personal history of nicotine dependence; E83.52 Hypercalcemia; Z92.21 Personal history of antineoplastic chemotherapy; D63.1 Anemia in chronic kidney disease; Z66 Do not resuscitate; C88.0 Waldenstrom macroglobulinemia; E66.01 Morbid (severe) obesity due to excess calories; Z68.36 Body mass index [BMI] 36.0-36.9, adult
CPT/HCPCS: 32555; 36415; 71045; 71046; 71250; 80048; 80053; 80202; 81001; 82945; 82962; 83605; 83615; 84156; 84157; 85025; 85610; 85730; 87040; 87070; 87075; 87077; 87086; 87088; 87186; 87205; 87449; 87633; 87641; 88108; 88305; 88313; 88341; 88342; 90937; 92526; 92610; 93005; 94640; 97116; 97162; 97166; 97530; 97802; 99285; J7030; J7050; A4216; G0257

== ENCOUNTER 2019-08-17 21:25 | Inpatient (IN) | payer MEDICARE, OTHER, SELFPAY ==
[2019-08-12 14:59] VITALS: BMI 36.1
[2019-08-17 21:25] VITALS: BP 117/68; PULSE 112; RESP 18; TEMP 37.7; O2SAT 97; BMI 35.9
--- NOTE | 2019-08-17 21:41 | EKG12_ITS ---
Test Reason : Blood Pressure : / mmHG Vent. 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
--- NOTE | 2019-08-17 21:45 | RAD_ITS ---
STUDY: X-RAY CHEST REASON FOR EXAM: Male, 79 years old. Weakness. Recent pneumonia. TECHNIQUE: Single AP portable view of the chest. COMPARISON: August 16, 2019. FINDINGS: The lungs are hypoexpanded. There is persistent density at the left lung base consistent with pleural effusion and atelectasis/infiltrate. There is no demonstrated pleural abnormality. The heart is mildly enlarged. Normal mediastinum and marcia. Normal visualized pulmonary arteries. Normal visualized aortic arch and descending thoracic aorta. No visualized osseous changes. There is no demonstrated abnormality of the visualized soft tissue structures of the upper abdomen. RAD/Chest 1 View (Portable) IMPRESSION: Slight increase in right pleural effusion with atelectasis versus infiltrate at the right lung base. Electronically Signed: Sid Hernandez DO at 22:40 EDT Tel [phone], Service support ,
[2019-08-17 21:52] LABS: Absolute Lymphocyte Count 0.54 X10^3/uL (0.83-4.51); Absolute Neutrophil Count 8.4 X10^3/uL (2.0-7.7); Basophil# 0.09 X10^3/uL; Basophil% 0.9 % (0-1); Eosinophil# 0.06 X10^3/uL; Eosinophils% 0.6 % (0-5); Hematocrit 36.9 % (40-54); Hemoglobin 12.2 g/dL (13.0-16.5); Lymphocyte # 0.54 X10^3/ul (4.0); Lymphocyte % 5.1 % (19-41); Mean Corp Hgb Conc 33.1 g/dL (32-36); Mean Corpuscular Hgb 30.8 pg (27.0-32.0); Mean Corpuscular Volume 93.2 fL (80-94); Mean Platelet Vol. 9.2 fl (6.2-12.0); Monocyte# 0.88 X10^3/uL; Monocyte% 8.4 % (0-10); NRBC Flagged by Analyzer 0 % (0-5); Neutrophil # 8.44 X10^3/uL (2.7-7.7); Neutrophil % 80.4 % (47-70); POSITIVE DIFFERENTIAL YES; Platelet Count 176 K/mm3 (150-450); RBC Distribution Width CV 14.1 % (11.6-14.6); RBC Distribution Width SD 47.9 fl (35.1-43.9); Red Blood Count 3.96 M/mm3 (4.6-6.2); White Blood Count 10.5 K/mm3 (4.4-11.0)
[2019-08-17 21:54] LABS: Differential Indicated SCAN CRITERIA MET
[2019-08-17 22:14] LABS: Differential Comment SCANNED
[2019-08-17 22:27] LABS: Anion Gap 5 (5-15); BUN 12 mg/dL (7-18); BUN/Creat Ratio 4.4 RATIO (10-20); Calcium,Total 10.6 mg/dL (8.5-10.1); Chloride 101 mmol/L (98-107); Creatinine, Serum 2.71 mg/dL (0.70-1.30); EST Glomerular Filtration Rate 24 mL/min (>60); Est Glom Filt Rate - Afr Amer 29 mL/min (>60); Estimated Creatinine Clearance 16.08 ml/min; Glucose 119 mg/dL (74-106); Potassium 3.4 mmol/L (3.5-5.1); Sodium Level 135 mmol/L (136-145)
--- NOTE | 2019-08-17 22:45 | HP.PCM_ITS ---
Problem List (1) Adult failure to thrive Status: Acute (2) Generalized weakness Status: Chronic (3) ESRD (end stage renal disease) Status: Chronic (4) Lymphoma Status: Chronic Qualifiers: Lymphoma type: non-Hodgkin Non-Hodgkin lymphoma type: B-cell B-cell lymphoma type: unspecified B-cell Lymphoma site: multiple regions Qualified Code(s): C85.18 - Unspecified B-cell lymphoma, lymph nodes of multiple sites History of Present Illness Date of Admission: 08/17/19 Chief Complaint: unable to walk The patient is a 79 year old M with a significant history of BPH; DVT of bilateral internal jugular veins; 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 Associated with symptoms is back pain and generalized body pain. Patient was admitted on 08/12/2019 and discharged on 08/17/2019 with acute hypoxemic respiratory insufficiency secondary to MRSA pneumonia, multiple pleural masses, right pleural effusion and multiple pulmonary masses per CT. Past Medical History Past Medical History (Chronic Problems): Chronic Problems (Last Reviewed 08/18/19 @ 02:24 by Al Gatica MD) Lymphoma (Chronic) Generalized weakness (Chronic) ESRD (end stage renal disease) (Chronic) 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) Morbid obesity (Chronic) Benign prostatic hypertrophy (Chronic) Hypertension (Chronic) Nephrotic syndrome (Chronic) Medical History: Medical History (Last Reviewed 08/18/19 @ 06:23 by Al Gatica MD) ESRD (end stage renal disease) (Chronic) N18.6 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) Morbid obesity (Chronic) E66.01 Benign prostatic hypertrophy (Chronic) N40.0 Hypertension (Chronic) I10 Nephrotic syndrome (Chronic) N04.9 Allergies Sulfa (Sulfonamide Antibiotics) Allergy (Severe, Verified 08/17/19 21:30) Hives Home Medications: Ambulatory Orders Medication Instructions Recorded Tamsulosin HCl [Flomax] 0.4 mg PO BID 10/23/16 Midodrine HCl [Proamatine] 10 mg PO MOWEFR 06/17/18 Nepro Liquid [Nepro Carb Steady] 120 ml PO BID 06/30/18 Acetaminophen [Tylenol Tablet] 650 mg PO Q6H PRN PRN tab 09/16/18 Bmx Liquid 5 ml PO Q4H PRN PRN 01/24/19 Ondansetron [Zofran Odt] 4 mg PO Q6H PRN PRN 01/24/19 Oxycodone [Oxyir] 5 mg PO Q8H PRN PRN #9 tab 01/27/19 Furosemide [Lasix] 80 mg PO BID 08/12/19 Sevelamer Carbonate [Renvela] 1,600 mg PO TID 08/12/19 Doxycycline 100 mg PO BID #8 cap 08/17/19 Surgical History: Surgical History (Last Reviewed 08/18/19 @ 06:23 by Al Gatica MD) 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 Melanoma resection. Psychiatric History: No pertinent psych hx Lives: Spouse/ Significant Other Smoking Status: Former smoker Alcohol: None - *Family History Maternal History Items: - - His mother from natural causes Paternal History Items: Heart Disease, - Review of Systems Constitutional: Reports: Weakness, Fatigue. Denies: Chills, Fever, Weight Change HEENT: Denies: Head Aches, Sinus Congestion, Sinus Drainage Cardiovascular: Denies: Chest Pain, Palpitations Respiratory: Reports: Cough. Denies: Shortness of Breath Gastrointestinal: Denies: Abdominal Pain, Nausea, Vomiting Genitourinary: Denies: Dysuria Musculoskeletal: Reports: Back Pain, Muscle pain. Denies: Joint Pain, Joint Tenderness Skin: Denies: Rash, Wounds Neurological: Denies: Numbness, Tingling, Focal weakness Psychiatric: Denies: Anxiety, Depression, Homicidal Ideations, Suicidal Ideations Hematologic/ Lymphatic: Denies: Easy Bruising, Easy Bleeding VTE Information - Inpt Only VTE Present on Admission: No VTE Mechan Device Prophylaxis: None VTE Pharm Prophylaxis ordered?: Yes Patient Problems: Active and Suspected Problems (Last Reviewed 08/18/19 @ 02:24 by Al Gatica MD) Adult failure to thrive (Acute) - Physical Exam General: Alert, Oriented x3, - - Patient does not answer many of the questions pertaining to hpi; appear voluntary. HEENT: Atraumatic, PERRLA, EOMI, Normocephalic Neck: Supple, No JVD, Negative Carotid Bruits Lungs: Clear to auscultation, Normal air movement, No rhonchi, No wheeze, No rales Cardiovascular: Regular rate, No murmurs Abdomen: Bowel Sounds Present, Soft, Non Tender Extremities: No edema, Capillary Refill Less than 3 Seconds Skin: No rashes, No breakdown Musculoskeletal: No Tenderness to Palpation of Joints or Extremities Neurological: Cranial nerves II-XII grossly intact Psych/Mental Status: Normal Affect, - - Patient does not answer many of the questions pertaining to hpi; appear voluntary. Vital Signs Temp Pulse Resp BP Pulse Ox 99.8 F H 112 H 18 117/68 97 08/17/19 21:25 08/17/19 21:25 08/17/19 21:25 08/17/19 21:25 08/17/19 21:25 Oxygen Flow Rate (L/min) 4 Oxygen Delivery Method Nasal Cannula Weight: 86.2 kg Body Mass Index (BMI) 35.9 Finger Stick Blood Glucose 116 Laboratory Tests Past 24 Hrs 08/17/19 08/17/19 08/17/19 21:42 21:42 22:01 WBC 10.5 RBC 3.96 L Hgb 12.2 L Hct 36.9 L MCV 93.2 MCH 30.8 MCHC 33.1 RDW Std Deviation 47.9 H RDW Coeff of Cari 14.1 Plt Count 176 MPV 9.2 Immature Gran % (Auto) 4.600 H Neut % (Auto) 80.4 H Lymph % (Auto) 5.1 L [place] % (Auto) 8.4 Eos % (Auto) 0.6 Baso % (Auto) 0.9 Absolute Neuts (auto) 8.4 H Absolute Lymphs (auto) 0.54 L Nucleated RBC % 0 Differential Comment SCANNED Sodium Cancelled 135 L Potassium Cancelled 3.4 L Chloride Cancelled 101 Carbon Dioxide Cancelled 29.0 Anion Gap Cancelled 5 BUN Cancelled 12 Creatinine Cancelled 2.71 H Estim Creat Clear Calc Cancelled 16.08 Est GFR (MDRD) Af Amer Cancelled 29 L Est GFR (MDRD) Non-Af Cancelled 24 L BUN/Creatinine Ratio Cancelled 4.4 L Glucose Cancelled 119 H Calcium Cancelled 10.6 H Assessment/Plan All Active Problems (Last Reviewed 08/18/19 @ 02:24 by Al Gatica MD) Adult failure to thrive (Acute) Hypercalcemia (Acute) The patient is a 79 year old M with a significant history of BPH; DVT of bilateral internal jugular veins; 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 PT and OT to work with patient on strengthening and make recommendations. Right pleural effusion/Multiple pulmonary masses Chest x-ray showed slight increase in right pleural effusion with atelectasis versus infiltrate at the right lung base. Review of old records show that patient had thoracentesis on 08/16/2019 and a 70 cc of fluids were removed. Cytology is pending. Recommend repeat chest x-ray and discussing case with well service floorperson. Patient saw well service floorperson, Dr. De Jesus on his recent admission. Of note on 2 L of oxygen patient had oxygen saturation of 100%. On previous discharge patient was to follow-up with pulmonology and oncology in 1 week. Consider clarifying goals of care. MRSA pneumonia Recently treated at the hospital and discharged home on dicyclomine. Dicyclomine continued. End-stage renal disease (dialysis Thursday) Last dialysis was on the same day of presentation; 08-17-2019 Nephrology consult Renal diet with low phosphorus Hypokalemia On presentation his potassium was 3.4. Hypokalemia likely due to Lasix use. Patient is on Lasix 80 mg p.o. twice daily which was continued at the hospital. Will give 20 mEq of potassium chloride. Of note patient is at risk of hyperkalemia because of end-stage renal disease. Hypercalcemia Presentation his calcium was 10.6. Improved from previous admission. Was resolved with dialysis on previous admission. Appears asymptomatic. No treatment warranted at this time. Anticipate management with routine dialysis. DVT prophylaxis Subcutaneous heparin. Code Visit OBSV E&M: 21984 Initial observation care L3
--- NOTE | 2019-08-17 22:53 | ED.DCSUM_ITS ---
- ER Visit Summary Date of Service: 08/17/19 Chief Complaint: Generalized weakness History of Present Illness: The patient is a 79 M history of lymphoma and end- stage renal disease dialysis. Patient was just hospitalized and discharged this evening. He was pretty weak when he got home he was able to get dialysis. But later he went to the bathroom and he and his are unable to get him off the toilet. Recently hospitalized for right-sided pneumonia and pleural effusion which she had a thoracentesis. Physical Examination: Older male no acute distress. Vital signs stable temperature nine 9.8. H EENT exam unremarkable. Neck nontender. Lungs clear to auscultation. Diminished on the right. Heart regular rhythm rate about 90 no murmur. Chest were nontender. Abdomen soft nontender. Normal bowel sounds no peritoneal signs. Extremities moves all 4. Neurologically is awake alert answering questions. Following commands. Test Results: Chest x-ray shows right pleural effusion possibly an infiltrate also. Could be either or both. Read by myself. Normal cardiac silhouette. Portable one view. EKG sinus rhythm rate of 90 hemoglobin 12. No bands. Electrolytes unremarkable. Normal gap. BUN 12 creatinine 2.71 he was dialyzed earlier today. Emergency Department Course and Treatment: Patient's basically failure to thrive and generalized weakness. He will need to be admitted and possibly placed or go to rehab unit or the transitional care unit. I have already spoke to the hospitalist who is down evaluating patient for admission. Treatment Plan: [] Disposition: Admission Impression: Generalized weakness Unable to ambulate Failure to thrive Right pleural effusion Status post pneumonia History of end-stage renal disease and dialysis. History of lymphoma This note was generated with [employer] dictation software. It may contain incorrect words, spelling, and punctuation that were not noted in review of the chart prior to signing ED Disposition - Plan for ED Patient: Referrals: Dona Santiago MD [Primary Care Provider] -
[2019-08-17 23:46] VITALS: BMI 33.0
[2019-08-17 23:51] VITALS: BP 128/60; PULSE 87; RESP 20; TEMP 36.7; O2SAT 100
[2019-08-17 23:57] VITALS: BMI 33.0
[2019-08-18 00:05] VITALS: O2SAT 100
[2019-08-18 05:50] VITALS: BP 122/82; PULSE 71; RESP 18; TEMP 36.5; O2SAT 100
[2019-08-18 06:53] LABS: Anion Gap 2 (5-15); BUN 15 mg/dL (7-18); BUN/Creat Ratio 4.9 RATIO (10-20); Calcium,Total 11.1 mg/dL (8.5-10.1); Chloride 100 mmol/L (98-107); Creatinine, Serum 3.07 mg/dL (0.70-1.30); EST Glomerular Filtration Rate 21 mL/min (>60); Est Glom Filt Rate - Afr Amer 25 mL/min (>60); Estimated Creatinine Clearance 15.45 ml/min; Glucose 86 mg/dL (74-106); Potassium 3.6 mmol/L (3.5-5.1); Sodium Level 135 mmol/L (136-145)
--- NOTE | 2019-08-18 08:57 | NURSING ---
Patient dentures were found by EVS in room 113 after their discharge. Prepress Stripper called and informed who said she would come get them. Meanwhile, patient was readmitted into room 118. Clinical manager food delivered dentures to patient's bedside and called to inform of such.
[2019-08-18 09:18] VITALS: BP 123/53; PULSE 80; RESP 16; TEMP 37.4; O2SAT 100
[2019-08-18] MEDS: SEVELAMER CARBONATE 800 MG TABLET 1600 MG PO ×2 (09:27→17:54)
[2019-08-18] MEDS: Doxycycline 100 MG CAPSULE PO ×2 (09:27→21:04)
--- NOTE | 2019-08-18 09:43 | CASEMGMT ---
JUAN met with patient and his . SW asked if she was thinking patient will need to go to [facility]. She said she does not know. She said the doctor's need to figure out what is wrong with him. She said his legs hurt and they need to fix this. SW told her SW will check back. Kaela CLAYTON
[2019-08-18] MEDS: Nepro Liquid 120 ML LIQUID PO (10:00)
--- NOTE | 2019-08-18 10:46 | PCM.PN.REN ---
Patient Problems: Active and Suspected Problems (Last Reviewed 08/18/19 @ 06:23 by Al Gatica MD) Adult failure to thrive (Acute) Subjective: went home and came back - Physical Exam General: Alert, Oriented x3, Cooperative HEENT: Atraumatic, PERRLA, EOMI, Normocephalic Neck: Supple, No JVD, Negative Carotid Bruits Lungs: Clear to auscultation, Normal air movement Cardiovascular: Regular rate, No murmurs Abdomen: Bowel Sounds Present, Soft, Non Tender Extremities: No edema, Capillary Refill Less than 3 Seconds Skin: No rashes, No breakdown Musculoskeletal: No Tenderness to Palpation of Joints or Extremities Neurological: Cranial nerves II-XII grossly intact Psych/Mental Status: Normal Affect, Appropriate Vital Signs Temp Pulse Resp BP Pulse Ox 99.3 F H 80 16 123/53 H 100 08/18/19 09:18 08/18/19 09:18 08/18/19 09:18 08/18/19 09:18 08/18/19 09:18 Oxygen Flow Rate (L/min) 2 Oxygen Delivery Method Nasal Cannula Weight: 84.5 kg Body Mass Index (BMI) 33.0 Finger Stick Blood Glucose 116 Intake and Output for Last 24 Hours 08/16/19 08/17/19 08/18/19 23:59 23:59 23:59 Intake Total 120 / 120 Balance 120 / 120 Laboratory Tests Past 24 Hrs 08/17/19 08/17/19 08/17/19 21:42 21:42 22:01 WBC 10.5 RBC 3.96 L Hgb 12.2 L Hct 36.9 L MCV 93.2 MCH 30.8 MCHC 33.1 RDW Std Deviation 47.9 H RDW Coeff of Cari 14.1 Plt Count 176 MPV 9.2 Immature Gran % (Auto) 4.600 H Neut % (Auto) 80.4 H Lymph % (Auto) 5.1 L [place] % (Auto) 8.4 Eos % (Auto) 0.6 Baso % (Auto) 0.9 Absolute Neuts (auto) 8.4 H Absolute Lymphs (auto) 0.54 L Nucleated RBC % 0 Differential Comment SCANNED Sodium Cancelled 135 L Potassium Cancelled 3.4 L Chloride Cancelled 101 Carbon Dioxide Cancelled 29.0 Anion Gap Cancelled 5 BUN Cancelled 12 Creatinine Cancelled 2.71 H Estim Creat Clear Calc Cancelled 16.08 Est GFR (MDRD) Af Amer Cancelled 29 L Est GFR (MDRD) Non-Af Cancelled 24 L BUN/Creatinine Ratio Cancelled 4.4 L Glucose Cancelled 119 H Calcium Cancelled 10.6 H 08/18/19 05:50 WBC RBC Hgb Hct MCV MCH MCHC RDW Std Deviation RDW Coeff of Cari Plt Count MPV Immature Gran % (Auto) Neut % (Auto) Lymph % (Auto) [place] % (Auto) Eos % (Auto) Baso % (Auto) Absolute Neuts (auto) Absolute Lymphs (auto) Nucleated RBC % Differential Comment Sodium 135 L Potassium 3.6 Chloride 100 Carbon Dioxide 33.0 H Anion Gap 2 L BUN 15 Creatinine 3.07 H Estim Creat Clear Calc 15.45 Est GFR (MDRD) Af Amer 25 L Est GFR (MDRD) Non-Af 21 L BUN/Creatinine Ratio 4.9 L Glucose 86 Calcium 11.1 H Medical Necessity - Tobacco Use Smoking Status: Former smoker Assessment/Plan All Active Problems (Last Reviewed 08/18/19 @ 06:23 by Al Gatica MD) Adult failure to thrive (Acute) Hypercalcemia (Acute) ESRD Anemia - multifactorial fevers HD tomorrow fevers could be tumor related
[2019-08-18 11:35] VITALS: O2SAT 97
[2019-08-18 12:14] LABS: CPK Total, Creatine Kinase 27 U/L (39-308)
--- NOTE | 2019-08-18 13:33 | PN_ITS ---
<Reddy Raymond - Last Filed: 08/18/19 13:33> Patient Problems: Active and Suspected Problems (Last Reviewed 08/18/19 @ 06:23 by Al Gatica MD) Adult failure to thrive (Acute) Subjective: Pt very lethargic. He opens his eyes and mumbles incoherently then goes back to sleep, cannot stay awake. He will provide some yes and no answers but it is not clear if he is actually understanding me. He denies any leg pain currently. His is present states he is always lethargic like this, and says that this is normal when you are 79 years old. He has no SOB or cough. No fevers or chills. His states that he came back to the hospital because his legs hurt so bad that he cannot walk. He walked to the bathroom at home, sat down, then could not stand up from the toilet because of pain. He is unable to identify to me where he has had pain. - Physical Exam General: Alert, Oriented x3, Cooperative HEENT: Atraumatic, PERRLA, EOMI, Normocephalic Neck: Supple, No JVD, Negative Carotid Bruits Lungs: Clear to auscultation, Normal air movement Cardiovascular: Regular rate, No murmurs Abdomen: Bowel Sounds Present, Soft, Non Tender Extremities: No edema, Capillary Refill Less than 3 Seconds Skin: No rashes, No breakdown Musculoskeletal: No Tenderness to Palpation of Joints or Extremities Neurological: Cranial nerves II-XII grossly intact Psych/Mental Status: Normal Affect, Appropriate, Alert and oriented to time, place, person, mood and affect Vital Signs Temp Pulse Resp BP Pulse Ox 99.3 F H 80 16 123/53 H 100 08/18/19 09:18 08/18/19 09:18 08/18/19 09:18 08/18/19 09:18 08/18/19 09:18 Oxygen Flow Rate (L/min) 2 Oxygen Delivery Method Nasal Cannula Weight: 186 lb 4.65 oz Body Mass Index (BMI) 33.0 Finger Stick Blood Glucose 116 Intake and Output for Last 24 Hours 08/16/19 08/17/19 08/18/19 23:59 23:59 23:59 Intake Total 560 / 560 Balance 560 / 560 Laboratory Tests Past 24 Hrs 10/01/0408/17/19 08/17/19 21:42 21:42 22:01 WBC 10.5 RBC 3.96 L Hgb 12.2 L Hct 36.9 L MCV 93.2 MCH 30.8 MCHC 33.1 RDW Std Deviation 47.9 H RDW Coeff of Cari 14.1 Plt Count 176 MPV 9.2 Immature Gran % (Auto) 4.600 H Neut % (Auto) 80.4 H Lymph % (Auto) 5.1 L [place] % (Auto) 8.4 Eos % (Auto) 0.6 Baso % (Auto) 0.9 Absolute Neuts (auto) 8.4 H Absolute Lymphs (auto) 0.54 L Nucleated RBC % 0 Differential Comment SCANNED Sodium Cancelled 135 L Potassium Cancelled 3.4 L Chloride Cancelled 101 Carbon Dioxide Cancelled 29.0 Anion Gap Cancelled 5 BUN Cancelled 12 Creatinine Cancelled 2.71 H Estim Creat Clear Calc Cancelled 16.08 Est GFR (MDRD) Af Amer Cancelled 29 L Est GFR (MDRD) Non-Af Cancelled 24 L BUN/Creatinine Ratio Cancelled 4.4 L Glucose Cancelled 119 H Calcium Cancelled 10.6 H Total Creatine Kinase 08/18/19 08/18/19 05:50 05:50 WBC RBC Hgb Hct MCV MCH MCHC RDW Std Deviation RDW Coeff of Crai Plt Count MPV Immature Gran % (Auto) Neut % (Auto) Lymph % (Auto) [place] % (Auto) Eos % (Auto) Baso % (Auto) Absolute Neuts (auto) Absolute Lymphs (auto) Nucleated RBC % Differential Comment Sodium 135 L Potassium 3.6 Chloride 100 Carbon Dioxide 33.0 H Anion Gap 2 L BUN 15 Creatinine 3.07 H Estim Creat Clear Calc 15.45 Est GFR (MDRD) Af Amer 25 L Est GFR (MDRD) Non-Af 21 L BUN/Creatinine Ratio 4.9 L Glucose 86 Calcium 11.1 H Total Creatine Kinase 27 L Medical Necessity - Tobacco Use Smoking Status: Former smoker Assessment/Plan All Active Problems (Last Reviewed 08/18/19 @ 06:23 by Al Gatica MD) Adult failure to thrive (Acute) Hypercalcemia (Acute) 1. Leg pain, weakness - 2/2 deconditioning. No acute process identified. CPK negative. 2. NHL with pulmonary masses - lungs are clear, no SOB. Recent thora fluid cytology pending. 3. ESRD - nephrology following. stable. Some hypercalcemia. potassium now normal. Continue renvela, nepro, midodrine. 4. BPH - flomax. DVT ppx: heparin DC planning: PTOT, needs placement. This patient was seen by Reddy Raymond PA-C under the supervision of Dr. Diaz <Fausto Diaz - Last Filed: 08/18/19 15:47> - Physical Exam General: Alert, - - listless. afebrile. HEENT: Atraumatic, Normocephalic Lungs: Clear to auscultation, Normal air movement, No rhonchi, No wheeze Cardiovascular: Regular rate, No murmurs Abdomen: Bowel Sounds Present, Soft, Non Tender, Non-Distended Skin: No rashes, No breakdown Musculoskeletal: No Tenderness to Palpation of Joints or Extremities, No Muscle Wasting Psych/Mental Status: Normal Affect, Appropriate Vital Signs Temp Pulse Resp BP Pulse Ox 36.8 C 83 16 124/61 H 97 08/18/19 14:00 08/18/19 14:00 08/18/19 14:00 08/18/19 14:00 08/18/19 14:00 Oxygen Flow Rate (L/min) 0.5 Oxygen Delivery Method Room Air Weight: 84.5 kg Body Mass Index (BMI) 33.0 Finger Stick Blood Glucose 116 Intake and Output for Last 24 Hours 08/16/19 08/17/19 08/18/19 23:59 23:59 23:59 Intake Total 560 / 560 Balance 560 / 560 Laboratory Tests Past 24 Hrs 08/17/19 08/17/19 08/17/19 21:42 21:42 22:01 WBC 10.5 RBC 3.96 L Hgb 12.2 L Hct 36.9 L MCV 93.2 MCH 30.8 MCHC 33.1 RDW Std Deviation 47.9 H RDW Coeff of Cari 14.1 Plt Count 176 MPV 9.2 Immature Gran % (Auto) 4.600 H Neut % (Auto) 80.4 H Lymph % (Auto) 5.1 L [place] % (Auto) 8.4 Eos % (Auto) 0.6 Baso % (Auto) 0.9 Absolute Neuts (auto) 8.4 H Absolute Lymphs (auto) 0.54 L Nucleated RBC % 0 Differential Comment SCANNED Sodium Cancelled 135 L Potassium Cancelled 3.4 L Chloride Cancelled 101 Carbon Dioxide Cancelled 29.0 Anion Gap Cancelled 5 BUN Cancelled 12 Creatinine Cancelled 2.71 H Estim Creat Clear Calc Cancelled 16.08 Est GFR (MDRD) Af Amer Cancelled 29 L Est GFR (MDRD) Non-Af Cancelled 24 L BUN/Creatinine Ratio Cancelled 4.4 L Glucose Cancelled 119 H Calcium Cancelled 10.6 H Total Creatine Kinase 08/18/19 08/18/19 05:50 05:50 WBC RBC Hgb Hct MCV MCH MCHC RDW Std Deviation RDW Coeff of Cari Plt Count MPV Immature Gran % (Auto) Neut % (Auto) Lymph % (Auto) [place] % (Auto) Eos % (Auto) Baso % (Auto) Absolute Neuts (auto) Absolute Lymphs (auto) Nucleated RBC % Differential Comment Sodium 135 L Potassium 3.6 Chloride 100 Carbon Dioxide 33.0 H Anion Gap 2 L BUN 15 Creatinine 3.07 H Estim Creat Clear Calc 15.45 Est GFR (MDRD) Af Amer 25 L Est GFR (MDRD) Non-Af 21 L BUN/Creatinine Ratio 4.9 L Glucose 86 Calcium 11.1 H Total Creatine Kinase 27 L Assessment/Plan Patient seen and examined independently. Data reviewed. I agree with the above note by the physician licensed investment sales assistant. 1. Leg pain. Patient had some moderate tenderness palpation with palpation of his quadriceps but nothing overtly to suggest myositis. Patient has full range of motion in his hip and knees. CPK was normal. 2. MRSA pneumonia: Continue with doxycycline 3. Lung mass: Still waiting on cytology from his thoracentesis. Follow-up with oncology 4. End-stage renal disease: Nephrology consult. Patient dialysis every Thursday. 5. Debility: Had a very lengthy conversation with the patient's and explained that they know he does have the option to go to a senior living facility but being that she is doing well at home it may be too much of a burden for her to care for him effectively. Discussed about the little things such as transfers to the toilet and shower and those can be very cumbersome for family members. I advise going to a senior living facility for further rehab and strengthening before returning home so that she may be able to care for him more effectively. She was hesitant at first and then later decided that that is what she would want. The plan is for the patient go to a senior living facility. Discussed with case management who stated that bed would be available on the fourth. Greater than 40minutes of which current 50% of time was discussing with the primarily and with the patient about debility and home care and senior living facilities. Code Visit OBSV E&M: [id number] Subsequent observation care L3
--- NOTE | 2019-08-18 13:38 | CASEMGMT ---
SW checked back w/pt and . They have decided they would like pt to return to [facility]. SW explained will make the referral to [facility] and let her know. SW inquired how pt got back and forth to dialysis last time from [facility], she states they transported him. SW faxed referral, called Amarilis at [facility]. She states they can take pt, either today or tomorrow, she is waiting to find out about a discharge and will call SW back. They can also transport pt to and from dialysis starting tomorrow if they have a bed today, Amarilis is aware that pt's dialysis is 6:15 on M, W, F. So if [facility] does not have a bed today pt could go tomorrow after having dialysis here. SW explained this to pt and . SW asked about transport to [facility], does not feel she is able to do this, would need SW to set up transport. SW will complete PAS/RR in [facility], and will continue to follow for discharge to [facility] today or tomorrow. MARIE Harvey
[2019-08-18 14:00] VITALS: BP 124/61; PULSE 83; RESP 16; TEMP 36.8; O2SAT 97
[2019-08-18] MEDS: Tamsulosin HCl 0.4 MG Capsule PO ×2 (14:20→21:04)
[2019-08-18] MEDS: Furosemide 80 MG Tablet PO ×2 (14:20→17:55)
[2019-08-18] MEDS: Heparin Injection (Vial) 5,000 UNIT/ML VIAL 5000 UNIT SC ×2 (14:20→21:04)
--- NOTE | 2019-08-18 14:40 | CASEMGMT ---
JUAN spoke with Amarilis at [facility] and they can take patient, but not until tomorrow. SW notified physician and patient's . Plan: d/c to [facility] under skilled level of care. Kaela CLAYTON
[2019-08-18 20:00] VITALS: BP 146/72; PULSE 88; RESP 18; TEMP 36.9; O2SAT 99
[2019-08-18] MEDS: 0.9% NaCl Peripheral Flush Adult/Peds IV (21:00)
[2019-08-19 02:00] VITALS: BP 153/73; PULSE 85; RESP 18; TEMP 36.5; O2SAT 96
[2019-08-19 07:21] VITALS: O2SAT 95
[2019-08-19 08:00] VITALS: BP 162/75; PULSE 81; RESP 16; TEMP 36.3; O2SAT 97
--- NOTE | 2019-08-19 11:22 | PCM.EXTCARCO ---
- Diet 08/18/19 14:09 Diet: Phosphorus Restricted Food consistency:: Soft Liquid Consistency:: Regular/Thin Is pt able to select menu?: No Diet Comments: renal diet - Routine Orders/Code Status Suppository Type: Dulcolax 10mg Suppository Frequency: Daily PRN - Therapies Physical Therapy: Eval and Treat Occupational Therapy: Eval and Treat - Problem/Diagnosis (1) MRSA pneumonia Status: Chronic Current Visit: Yes (2) Benign prostatic hypertrophy Status: Chronic Current Visit: No (3) ESRD (end stage renal disease) Status: Chronic Current Visit: No (4) Generalized weakness Status: Chronic Current Visit: No (5) Hypertension Status: Chronic Current Visit: No (6) Lymphoma Status: Chronic Current Visit: No - Allergies/Procedures Done in Hospital Allergies/Adverse Reactions: Allergies Sulfa (Sulfonamide Antibiotics) Allergy (Severe, Verified 08/17/19 21:30) Hives Procedures: Dialysis - Type of Care/Length of Stay Estimated LOS: Convalescent Care Less Than 30 days Type of Care Needed: Skilled Rehab Potential: Fair Prognosis: Fair - Additional Orders/Day of Discharge Day of Discharge: 08/19/19 - Dietary and Speech Recommendations Dietitian Recommendations/Changes: Suggest liberalize diet to low sodium; protein restriction not warranted as pt on HD. - Follow Up Care Primary Care Physician: Dona Santiago MD [Primary Care Provider] - Please follow up with your Primary Care Physician in: 1-2 weeks Please Follow Up With: Mary Beth Cabrera MD - Dialysis When: as directed Please Follow Up With: Williams Pena DO
[2019-08-19 12:15] VITALS: BP 105/64; PULSE 78; RESP 20; TEMP 36.4
[2019-08-19] MEDS: Doxycycline 100 MG CAPSULE PO (12:37)
[2019-08-19] MEDS: SEVELAMER CARBONATE 800 MG TABLET 1600 MG PO (12:37)
[2019-08-19] MEDS: Tamsulosin HCl 0.4 MG Capsule PO (12:38)
[2019-08-19] MEDS: Heparin Injection (Vial) 5,000 UNIT/ML VIAL 5000 UNIT SC (12:38)
[2019-08-19] MEDS: Midodrine HCl 5 MG Tablet 10 MG PO (12:39)
--- NOTE | 2019-08-19 12:44 | DIALYSIS ---
HD x3.5 hours completed, tolerated well, UF 1000mL, CritLine ended profile B, accessed via MESHA AVF using 15G needles without issue, midodrine given during treatment as ordered, needles pulled and stasis achieved post treatment holding pressure less than 10mins each site
--- NOTE | 2019-08-19 12:49 | CASEMGMT ---
Patient is ready for discharge. JUAN faxed orders to [facility]. A PASRR was completed as patient was originally observation status. JUAN talked with Amarilis at [facility] and they can pick patient up at 2p at the main entrance. JUAN notified RN, P[employer]IST, secretary of state, and patient's . Plan: d/c to [facility] at [facility] under skilled level of care on a PASRR as he was originally observation status. [facility] will pick patient up at 2p. Kaela TUCKER MSW
[2019-08-19 13:55] VITALS: BP 126/61; PULSE 85; RESP 16; TEMP 36.7; O2SAT 98
--- NOTE | 2019-08-19 13:55 | NURSING ---
Report called to Jose, nurse at [facility].
--- NOTE | 2019-08-19 15:15 | DS.PCM_ITS ---
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 Operations: None Procedures: None Summary of Care Provided: Hospital Course: The patient is a 79 year old M with pmhx as above notably recently admitted to the hospital 08/12/2019 and DCd 08/17/2019 after being treated for MRSA pneumonia and after being found to lung masses. At that time he was treated with abx transitioned to doxycycline to complete 10 days of total therapy, and had a thoracentesis with pathology done (results pending). He went home with his however he did poorly at home. He was very weak, having difficulty ambulating, and having severe BL leg pain interfering with his ability to walk. He came back to the ER and was admitted for debility and need for SNF placement. No acute process was identified. He remained weak and lethargic through his stay and was felt to be deconditioned due to his multiple sever chronic illnesses and recent acute infection. He was seen by physical therapy and SNF was recommended. He and his were agreeable and he was discharged in stable condition to SNF. He will need follow up with his traffic law attorney for ongoing dialysis, and to keep his prior appointment with Dr. Pena regarding his underlying oncologic processes. He will need follow up with his PCP in 1-2 weeks. He will continue oral doxy until he has completed 10 total days of abx therapy. This patient was seen by Reddy Raymond PA-C under the supervision of Doctor Diaz. [] - Physical Exam General: Alert, Oriented x3, Cooperative, Lethargic HEENT: Atraumatic, PERRLA, EOMI, Normocephalic Neck: Supple, No JVD, Negative Carotid Bruits Lungs: Clear to auscultation, Diminished Cardiovascular: Regular rate, No murmurs Abdomen: Bowel Sounds Present, Soft, Non Tender Extremities: No edema, Capillary Refill Less than 3 Seconds Skin: No rashes, No breakdown Musculoskeletal: No Tenderness to Palpation of Joints or Extremities Neurological: Cranial nerves II-XII grossly intact Psych/Mental Status: Normal Affect, Appropriate, Alert and oriented to time, place, person, mood and affect Vital Signs Temp Pulse Resp BP Pulse Ox 98.0 F 85 16 126/61 H 98 08/19/19 13:55 08/19/19 13:55 08/19/19 13:55 08/19/19 13:55 08/19/19 13:55 Oxygen Flow Rate (L/min) 0.5 Oxygen Delivery Method Room Air Weight: 187 lb 13.341 oz Body Mass Index (BMI) 33.0 Finger Stick Blood Glucose 116 Intake and Output for Last 24 Hours 08/17/19 08/18/19 08/19/19 23:59 23:59 23:59 Intake Total 860 / 1060 200 / 200 Output Total 0 / 50 1100 / 1100 Balance 860 / 1010 -900 / -900 Discharge Diet: Renal Diet Discharge Activity: Return to Normal Activity Home Medications: Medications to take at Discharge Tamsulosin HCl [Flomax] 0.4 mg PO BID 10/23/16 Midodrine HCl [Proamatine] 10 mg PO MOWEFR 06/17/18 Acetaminophen [Tylenol Tablet] 650 mg PO Q6H PRN PRN tab 09/16/18 Bmx Liquid 5 ml PO Q4H PRN PRN 01/24/19 Ondansetron [Zofran Odt] 4 mg PO Q6H PRN PRN 01/24/19 Furosemide [Lasix] 80 mg PO BID 08/12/19 Sevelamer Carbonate [Renvela] 1,600 mg PO TID 08/12/19 Doxycycline 100 mg PO BID #5 cap 08/19/19 Ensure Enlive 120 ml PO 4X/DAY liquid 08/19/19 Oxycodone [Oxyir] 5 mg PO Q8H PRN PRN #9 tab 08/19/19 Following Prescrptions Were Given to Patient: Oxycodone [Oxyir] 5 mg PO Q8H PRN PRN #9 tab PRN Reason: Pain Score 6-10/10 Prescription Printed Primary Care Physician: Dona Santiago MD [Primary Care Provider] - Please follow up with your Primary Care Physician in: 1-2 weeks Please Follow Up With: Mary Beth Cabrera MD - Dialysis When: as directed Please Follow Up With: Williams Pena DO Disposition: Retirement facility Minutes spent on discharge:: 35 Patient Condition:: Stable Medical Necessity - Tobacco Use Smoking Status: Former smoker Meaningful Use Info Meaningful Use Diagnoses (Choose all that apply): None applicable <Fausto Daiz - Last Filed: 08/19/19 16:07> Discharge Date and Diagnosis - Secondary Discharge Diagnosis Chronic Problems (Last Reviewed 08/18/19 @ 06:23 by Al Gatica MD) MRSA pneumonia (Chronic) Lymphoma (Chronic) Generalized weakness (Chronic) ESRD (end stage renal disease) (Chronic) 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 Data reviewed. I agree with the above note by the physician reading assistant. The patient is a 79 year old M's with weakness after just being discharged home. Resented back to the emergency room and was admitted. Essentially, patient is very debilitated and requires additional therapy. Had very lengthy conversations with the patient his during the course of his admission and to reassure her that him going to residential facility given his profound weakness is certainly an appropriate option at this time and has started been demonstrated that he is not able to adequately care for him self at home and nor is she able to accommodate him solely on her own. No family or friends to be able to available to assist. So patient was discharged to a residential facility in stable condition. Patient will continue with the antibiotics. Patient will follow up with a Dr. Pena in regards to treatment of underlying malignancy. Patient did have a thoracentesis performed during his most recent admission and the cytology showed lymphocytic infiltrate primarily of small T-cell lymphocytes. [] - Physical Exam General: Alert, Cooperative, - - Seen on dialysis Lungs: Clear to auscultation, Diminished Cardiovascular: Regular rate, Regular Rhythm, Normal S1, Normal S2, No murmurs Abdomen: Bowel Sounds Present, Soft, Non Tender Extremities: No edema, No Calf Tenderness Skin: No rashes, No breakdown Psych/Mental Status: Normal Affect, Appropriate Vital Signs Temp Pulse Resp BP Pulse Ox 36.7 C 85 16 126/61 H 98 08/19/19 13:55 08/19/19 13:55 08/19/19 13:55 08/19/19 13:55 08/19/19 13:55 Oxygen Flow Rate (L/min) 0.5 Oxygen Delivery Method Room Air Weight: 85.2 kg Body Mass Index (BMI) 33.0 Finger Stick Blood Glucose 116 Intake and Output for Last 24 Hours 08/17/19 08/18/19 08/19/19 23:59 23:59 23:59 Intake Total 860 / 1060 200 / 200 Output Total 0 / 50 1100 / 1100 Balance 860 / 1010 -900 / -900 Discharge Diet: Renal Diet Discharge Activity: Return to Normal Activity Disposition: Retirement facility Minutes spent on discharge:: 35 Patient Condition:: Stable Medical Necessity - Tobacco Use Smoking Status: Former smoker Meaningful Use Info Meaningful Use Diagnoses (Choose all that apply): None applicable Code Visit Inpatient E&M: 62331 Disch Hosp
== END 2019-08-19 14:04 | disposition skilled nursing facility (03) | DRG 640 ==
LOC: ED 21:54 → PCU 23:10
PROVIDERS: Physician Assistant; Admitting Provider Hospitalist; Emergency Provider Emergency Medicine; Family Provider Internal Medicine; PCP Internal Medicine
DX: R62.7 Adult failure to thrive (principal); N18.6 End stage renal disease; J15.212 Pneumonia due to Methicillin resistant Staphylococcus aureus; C85.10 Unspecified B-cell lymphoma, unspecified site; J90 Pleural effusion, not elsewhere classified; I12.0 Hypertensive chronic kidney disease with stage 5 chronic kidney disease or end stage renal disease; R53.81 Other malaise; N40.0 Benign prostatic hyperplasia without lower urinary tract symptoms; R91.8 Other nonspecific abnormal finding of lung field; Z99.2 Dependence on renal dialysis; Z87.441 Personal history of nephrotic syndrome; Z86.718 Personal history of other venous thrombosis and embolism; E66.01 Morbid (severe) obesity due to excess calories; Z79.891 Long term (current) use of opiate analgesic; Z79.899 Other long term (current) drug therapy; Z87.891 Personal history of nicotine dependence; Z68.35 Body mass index [BMI] 35.0-35.9, adult; E87.6 Hypokalemia; E83.52 Hypercalcemia; M79.606 Pain in leg, unspecified; R53.1 Weakness
CPT/HCPCS: 36415; 71045; 80048; 82550; 85025; 90937; 92610; 93005; 97162; 97166; 97802; 99285; J7030; A4216; G0257

== ENCOUNTER → 2019-09-06 | Outpatient (CLI) | payer MEDICARE, OTHER, SELFPAY ==
[2019-08-17 23:46] VITALS: BMI 33.0
[2019-09-06] VITALS (11 sets, daily range): BP systolic 96–146; BP diastolic 50–83; PULSE 65–99; RESP 14–25; TEMP 36.9; O2SAT 96–100; BMI 34.9
--- NOTE | 2019-09-06 | IMM_PTH ---
PATIENT: ANSLEY OLIVAS LOC: CT U#:[id number] AGE/SX: 79/M ROOM: RE09/06/[address]: Dr. Williams Pena DO : 1940 BED: DIS: 09/06/2019 SPEC #: [id number] RECD: 09/07/19 13:04 STATUS: RADHA REQ #: [id number] CHEN: 09/06/19 00:[address]: Williams Pena DEPT: IMMUNOHISTOCHEMISTRY RECD BY: Yesenia Hardwick ENTERED: 09/07/19 13:06 SP TYPE: IMMUNO OTHR DR: MD Dr. Williams Rendon MD Tissues: Lung, NOS Procedures: CK8 (initial) BCL-2 (add) BCL-6 (add) CD10 (add) CD20 (add) CD23 (add) CD3 (add) CD30 (add) CD43 (add) CD45 (add) CD5 (add) CD79A (add) CYCLIN (add) KI-67 (add) MUM1 (add) C-MYC (add) Pankeratin (add) PHYSICIAN & [place] [id number] SPECIMEN INFORMATION: Tissue Source: Left lower lung mass Clinical Info: Left lung mass Specimen Number: [id number] CPT code: 92953, 51931 x16 METHODOLOGY: Deparaffinized sections of prefer/formalin-fixed tissue or PAP/DQ stained slides are incubated with monoclonal/polyclonal antibodies/oligonucleotide probes. Localization is made via biotin free immunoperoxidase method. Appropriate controls are performed and reacted as expected. Results on target cell population are indicated in the following table: RESULTS: ANTIBODY / CLONE RESULT CK8 (42pejoW80) negative AE1-3 (AE1/AE3/PCK26) negative CD45 (RP2/18) positive CD3 (PS1) negative CD5 (SP10) negative CD10 (56C6) positive CD20 (L26) positive CD23 (1B12) negative CD30 (Lit-H2) negative CD43 (L60) negative CD79a (11E3) positive BCL-2 (bcl-2/100/D5) positive, weak BCL-6 (HG097N/A8) positive Cyclin D1/BCL-1 (SP4) negative MUM1 (MRQ-43) positive C-MYC (Y69) negative Ki-67 (30-9) positive, high These tests were developed and their performance characteristics determined by [facility]. They may not have been cleared or approved by the U.S. Food and Drug Administration. The FDA has determined that such clearance or approval is not necessary. The above immunohistochemical/dualISH markers are ordered and reviewed by the Pathologist. 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 See comment. SJ:damian 09/08/19 Comment: IHC profile favors mixed germinal center and non-geminal center cell origin. Clinical correlation is necessary.
--- NOTE | 2019-09-06 | ASPIGT_PTH ---
PATIENT: ANSLEY OLIVAS LOC: [place] U#:[id number] AGE/SX: 79/M ROOM: RE09/06/[address]: Dr. Williams Pena DO : 1940 BED: DIS: 09/06/2019 SPEC #: [id number] RECD: 09/06/19 10:00 STATUS: RADHA CAMRYN #: [id number] CHEN: 09/06/19 00:[address]: Williams Pena DEPT: SURGICAL PATHOLOGY RECD BY: Juan Lo ENTERED: 09/06/19 11:04 SP TYPE: ASP RAD OTHR DR: MD Dr. Williams Rendon MD Tissues: Lung, NOS Procedures: FNA Specimen Adequacy Special Stain Group II Surgery Specimen Level IV Imprint (control) HEADER OPERATION: Left lower lung mass, CT guided core biopsy PRE-OP DIAGNOSIS: Left lung mass TISSUE SUBMITTED: Left lower lung mass MICROSCOPIC DIAGNOSIS Left lower lung mass, CT guided core biopsy: Consistent with involvement by non-Hodgkin diffuse large B-cell lymphoma. See comment. ANGEL:damian 09/08/19 COMMENT The specimen is evaluated at the time of CT by Dr. Ortiz. Immediate Evaluation = Atypical large cells noted. Differential diagnosis includes non-small carcinoma versus lymphoma. Immunohistochemistry ([id number]) supports the above diagnosis. IHC profile favors mixed germinal center and non-geminal center cell origin. As per patient's EMR, the patient has history of non-Hodgkin B-cell lymphoma, unspecified type. MICROSCOPIC DESCRIPTION Slides are reviewed. GROSS DESCRIPTION Received in fixative is one container labeled with the patient's name and designated left lung mass. The specimen consists of multiple irregular fragments of fonseca soft tissue that in aggregate measure 1 x 0.1 x <0.1 cm. The specimen is totally submitted in one cassette. One touch imprint is prepared at the time of core biopsy. / ANGEL:damian 09/06/19 TC:0 CPT: 00302, 24886
--- NOTE | 2019-09-06 07:45 | CT_ITS ---
PROCEDURE: CT GUIDED CORE NEEDLE BIOPSY OF A left lower lobe LUNG LESION INDICATION: Male, 79 years old. Lung nodules. PHYSICIAN: Dr. Joshua Jones CONSENT: Written informed consent was obtained having explained the risks, benefits and alternatives in detail with the patient who accepted the risks and agreed to proceed. Laboratory review and clinical assessment was performed. CONSCIOUS SEDATION PROTOCOL: The Drugs used were: 2 mg Versed, IV., and 50 mcg Fentanyl, IV. The sedation time was: 18 minutes. Conscious patient was started at 9:29 AM and terminated at 9:47 AM. The conscious sedation protocol was independently monitored. RADIATION DOSAGE (If Supplied By Facility): CTDIvol = ( 20.72 ) mGy, DLP = ( 1116.18 ) mGycm Individualized dose optimization techniques were used for this CT. TECHNIQUE: The patient was placed in the right side down decubitus position. A noncontrast CT was performed to localize the lesion in the left lower lobe . The skin surface was prepped and draped in a sterile fashion. 1% lidocaine was used for local anesthesia. Using CT guidance, a 20-gauge coaxial biopsy device was advanced to the periphery of the lesion. A total of 3 core specimens were obtained. The specimens were placed in a formalin solution. A post procedure CT demonstrated no adverse sequelae or pneumothorax. The patient tolerated the procedure well without adverse event. A negative biopsy does not exclude malignancy. Further imaging or clinical followup based on patient condition and degree of clinical suspicion for malignancy. Suggest rebiopsy, if biopsy results do not match with clinical scenario. CT/Biopsy/Inj or Needle Placement IMPRESSION: 1. CT directed core needle biopsy of the left lower lobe pulmonary nodule using CT image guidance with image documentation as described. Pathology results are pending. 2. Conscious Sedation protocol utilized with independent monitoring. Electronically Signed: Alek Lewis, at 11:11 EDT , Service support ,
[2019-09-06 07:58] LABS: International Normalized Ratio 1.2
--- NOTE | 2019-09-06 09:20 | RAD_ITS ---
STUDY: X-RAY CHEST REASON FOR EXAM: Male, 79 years old. The patient status post left lung biopsy. TECHNIQUE: AP inspiration and expiration views. COMPARISON: Comparison is made with prior study dated August 17, 2019. FINDINGS: There is no evidence of pneumothorax following biopsy of the left lung nodule. Stable pleural-parenchymal changes of the right hemithorax. RAD/Chest Insp/Exp 2 View IMPRESSION: No evidence of pneumothorax following the percutaneous left lung biopsy. Electronically Signed: Alek Lewis, at 10:34 EDT , Service support ,
[2019-09-06] MEDS: Midazolam 2 MG/2 ML Syringe IV (09:29)
[2019-09-06] MEDS: fentaNYL 100 MCG/2 ML Ampul IV (09:30)
--- NOTE | 2019-09-06 11:20 | RAD_ITS ---
STUDY: X-RAY CHEST REASON FOR EXAM: Male, 79 years old. Status post left lung biopsy. TECHNIQUE: Single AP portable view of the chest. COMPARISON: Chest, September 06, 2019 (0956 hours) CT biopsy guidance, September 06, 2019. FINDINGS: There is no evidence of pneumothorax. There is persistent and infiltrate in the right lung. There are vague nodular densities in the retrocardiac left lung. Question left pleural effusion. The heart remains enlarged. Normal mediastinum and marcia. Normal visualized pulmonary arteries. Normal visualized aortic arch and descending thoracic aorta. The thoracic spine is obscured by the mediastinum. Normal visualized ribs, clavicles, and shoulders. There is no demonstrated abnormality of the visualized soft tissue structures of the upper abdomen. RAD/Chest Insp/Exp 2 View IMPRESSION: No pneumothorax. There is no other major interval change from the earlier chest film. Electronically Signed: Sid Hernandez DO at 20:00 EDT Tel [phone], Service support ,
--- NOTE | 2019-09-06 11:32 | NURSING ---
KALLI PICKARD [facility], SPOKE WITH PT'S NURSE, JOYA. JOYA AWARE WE ARE WAITING FOR SECOND CHEST XRAY AT 1200 TO DETERMINE IF PT IS ABLE TO RETURN TO [facility]. KALLI PICKARD WILL CALL JOYA IF CHEST XRAY IS CLEARED FOR PATIENT TO RETURN AND JOYA WILL SCHEDULE TRANSPORTATION BACK.
== END | disposition home or self-care (01) ==
PROVIDERS: Family Provider Internal Medicine; PCP Internal Medicine; Referring Provider Internal Medicine Hematology & Oncology; Visit Provider Internal Medicine Hematology & Oncology
DX: C85.10 Unspecified B-cell lymphoma, unspecified site (principal)
CPT/HCPCS: 32405; 36415; 71046; 77012; 85610; 88172; 88305; 88313; 88341; 88342; 99156; 99157; J7040; A4216

== ENCOUNTER 2019-10-27 09:38 | Inpatient (IN) | payer MEDICARE, OTHER, SELFPAY ==
[2019-09-06 08:20] VITALS: BMI 34.9
[2019-10-27] VITALS (11 sets, daily range): BP systolic 95–135; BP diastolic 55–74; PULSE 50–87; RESP 15–25; TEMP 36.3–36.6; O2SAT 94–100; BMI 32.9; BMI 33.5
--- NOTE | 2019-10-27 09:44 | EKG12_ITS ---
Test Reason : WEAKNESS Blood Pressure : / mmHG Vent. Rate : 066 BPM Atrial Rate : 066 BPM P-R Int : 160 ms QRS Dur : 078 ms QT Int : 400 ms P-R-T Axes : -02 -07 015 degrees QTc Int : 419 ms Normal sinus rhythm Possible Inferior infarct (cited on or before 12-AUG-2019) Possible Anterior infarct (cited on or before 12-SEP-2018) Abnormal ECG Confirmed by TACHO PUCKETT, ANTONIETA ([id number]), field map editor ASMITA KELLY ([id number]) on 10/31/2019 11:35:52 AM Referred By: Nia Cohen Confirmed By:ANTONIETA TITUS MD
--- NOTE | 2019-10-27 09:44 | RAD_ITS ---
STUDY: X-RAY CHEST REASON FOR EXAM: Male, 79 years old. Weakness and shortness of breath. TECHNIQUE: Single AP portable view of the chest. COMPARISON: Comparison is made with prior examination dated September 06, 2019. FINDINGS: EKG electrodes are seen. A vascular stent is seen in the proximal left arm. Small right pleural effusion with right basilar atelectasis and/or infiltrate. There now is evidence of multiple bilateral pulmonary nodules. Thickening of the right minor fissure. Normal size heart. Normal mediastinum and marcia. Normal visualized pulmonary arteries. There is atherosclerotic tortuosity of the aortic arch and descending thoracic aorta. There are diffuse degenerative changes of the visualized thoracic spine. Normal visualized ribs, clavicles, and shoulders. There is no demonstrated abnormality of the visualized soft tissue structures of the upper abdomen. RAD/Chest 1 View (Portable) IMPRESSION: Bilateral pulmonary nodules. Small right pleural effusion with right basilar atelectasis and/or infiltrate. Electronically Signed: Alek Lewis, at 10:14 EST , Service support ,
--- NOTE | 2019-10-27 09:47 | ED.DCSUM_ITS ---
History of Present Illness Chief Complaint: Weakness Informant: Patient, Significant Other, Relief Mate Narrative: Patient is an 79-year-old male with extensive medical history including lymphoma, end-stage renal disease on hemodialysis, recurrent falls, hypertension and BPH presenting for generalized weakness. Patient has been having increased weakness and difficulty with activities of daily living over the past few days. His was going to take him to the PCP today when he slipped out of his chair trying to get in the car. He was unable to get himself back up so she called 911. Patient states he landed on his buttocks and did not hit his head. He denies any loss of consciousness. Does complain of some chronic right knee pain but states he did not have any injury to it today. No report of any fever, cough, chest pain, nausea, vomiting or abdominal pain. Patient states he still makes urine. arrived to the bedside. She states that he was just discharged from the [facility] less than a week ago. They were on their way to get a CT scan for further evaluation of his lymphoma. When he was trying to get in the car he had severe back pain rating down to his legs which doubled him over. Patient then lowered himself to the ground. Patient has a wheelchair but is a hard time using at the house because it is small. He has a walker but is not been able to use it because of his leg pain. She notes that he does have a history of back pain and previously received oxycodone for his pain but is not been taking it lately because he left and complain of pain. is not sure if he is safe to be home right now as he cannot walk. In addition patient missed hemodialysis on Thursday, yesterday because of his pain/leg weakness. Past Medical History - Allergies and Home Meds Allergies/Adverse Reactions: Allergies Sulfa (Sulfonamide Antibiotics) Allergy (Severe, Verified 10/27/19 09:50) Hives metoprolol Allergy (Verified 10/27/19 09:51) Unknown Primary Care Physician: Dona Santiago MD [Primary Care Provider] - Past Medical History: - - Lymphoma, low back pain, end-stage renal disease on hemodialysis, hypertension Surgical History: colectomy, herniorrhaphy, - - Bowel resection secondary to bowel obstruction w/ ventral hernia repair, AVF, R TKR, TURP. Melanoma resection. Smoking Status: Former smoker - Family History Maternal Family History: Reports: - - His mother from natural causes Paternal Family History: Reports: Heart Disease, - Review of Systems General: Denies: Chills, Fever, Sweats Eyes: Denies: Visual changes - bilaterally, Diplopia ENT: Denies: Rhinorrhea, Sore throat Cardiovascular: Denies: Chest pain, Palpitations Respiratory: Denies: Dyspnea, Cough, Dyspnea on exertion Gastrointestinal: Denies: Abdominal pain, Nausea, Vomiting, Diarrhea, Melena, Hematochezia Genitourinary: Denies: Dysuria, Hematuria, Frequency Musculoskeletal: Reports: Back pain, Extremity Pain - right leg Skin: Denies: Rash, Wounds Neurological: Reports: Weakness - generalized. Denies: Headache, Numbness Physical Exam Vital Signs/Narrative: Vital Signs Temp Pulse Resp BP Pulse Ox 10/27/19 09:38 97.4 F L 87 25 H 95/61 94 Inital Vital Signs reviewed: Yes General: Well nourished, Well developed, No Acute Distress Head: Normocephalic, Atraumatic Eyes: Perrl, EOMI ENT: Moist mucous membranes, No rhinorrhea, TM's clear. Negative for: Dry mucous membranes Neck: Supple, Nontender, No JVD Cardiovascular: Regular rate, Regular rhythm, No murmurs, - - AV fistula in the left upper extremity with palpable thrill Respiratory: No distress, CTA bilaterally, Chest nontender Abdomen: Soft, Nontender, Nondistended, Normal bowel sounds Extremities: Nontender, No edema Skin: Normal color, No rash Neurological: Alert, Oriented x3, Cranial nerves II-XII grossly intact, Normal Strength, Normal Sensation Psychological: Normal affect, Normal Mood Diagnostic/Tx/Re-eval Chest X-Ray - ED: 1 View, Read by ED Physician, Read by Radiologist, No Acute Disease Clinical Impression(s) from Imaging Studies Chest X-Ray 10/27/19 09:44 IMPRESSION: Bilateral pulmonary nodules. Small right pleural effusion with right basilar atelectasis and/or infiltrate. Electronically Signed: Alek Lewis, at 10:14 EST , Service support , Laboratory Data 10/27/19 10/27/19 10/27/19 10:05 10:05 10:05 WBC 7.0 RBC 3.63 L Hgb 11.2 L Hct 34.9 L MCV 96.1 H MCH 30.9 MCHC 32.1 RDW Std Deviation 55.2 H RDW Coeff of Cari 15.5 H Plt Count 142 L MPV 8.6 Immature Gran % (Auto) 1.100 H Neut % (Auto) 71.5 H Lymph % (Auto) 12.[address] [place] % (Auto) 13.0 H Eos % (Auto) 1.9 Baso % (Auto) 0.4 Absolute Neuts (auto) 5.0 Absolute Lymphs (auto) 0.85 Nucleated RBC % 0 PT 14.1 INR 1.1 Sodium 134 L Potassium 4.2 Chloride 99 Carbon Dioxide 25.0 Anion Gap 10 BUN 31 H Creatinine 4.80 H Estim Creat Clear Calc 9.88 Est GFR (MDRD) Af Amer 15 L Est GFR (MDRD) Non-Af 13 L BUN/Creatinine Ratio 6.5 L Glucose 114 H Lactic Acid Uric Acid Calcium 12.4 H Phosphorus Troponin I 0.016 10/27/19 10/27/19 10/27/19 10:05 11:34 11:34 WBC RBC Hgb Hct MCV MCH MCHC RDW Std Deviation RDW Coeff of Cari Plt Count MPV Immature Gran % (Auto) Neut % (Auto) Lymph % (Auto) [place] % (Auto) Eos % (Auto) Baso % (Auto) Absolute Neuts (auto) Absolute Lymphs (auto) Nucleated RBC % PT INR Sodium Potassium Chloride Carbon Dioxide Anion Gap BUN Creatinine Estim Creat Clear Calc Est GFR (MDRD) Af Amer Est GFR (MDRD) Non-Af BUN/Creatinine Ratio Glucose Lactic Acid 4.2 H* Uric Acid 5.3 Calcium Phosphorus 5.7 H Troponin I - Rhythm Strip Rhythm Strip: Sinus Rhythm Rate: 66 Ectopy: None - EKG Initial EKG Interpretation: Sinus Rhythm, - - Normal sinus rhythm at a rate of 66 Normal intervals Left axis deviation Nonspecific ST segment changes in inferior leads with no reciprocal changes This is new compared to prior EKG on 08/17/2019 Prior: Changed - Medical Decision Making Patient is evaluated for back pain and generalized weakness. He does hemodialysis because of his symptoms. He has been unable to ambulate at home per his . Patient was recently discharged from the [facility] back home. On arrival patient was mildly hypotensive. He is A&O x2. Patient does have a lactic acidosis. He has elevated creatinine but this is likely secondary to his end-stage renal disease. His EKG is grossly normal and he does not have a hyperkalemia despite missing dialysis. Patient is a normal white blood cell count. His chest x-ray is read as possible infiltrate versus atelectasis. Clinically patient is not had a cough or fever. He has not had a leukocytosis. Do not suspect pneumonia. I suspect his acidosis is more from dehydration. He is given a small 250 cc bolus. His blood pressure improves with this. Patient's troponin is normal. Patient's calcium is also elevated. I did add on ionized calcium for further evaluation of this. Patient will be admitted to the hospital for his weakness and further monitoring of his lactic acidosis and hypotension. Patient's is agreeable for placement if needed. Patient is stable for the general medical floor at time of disposition. ED Disposition - Plan for ED Patient: Disposition: Acute Care Hospital [facility] Diagnosis: Hypercalcemia, Adult failure to thrive, Generalized weakness, Lactic acidosis, Hypotensive episode Referrals: Dona Santiago MD [Primary Care Provider] -
[2019-10-27 10:16] LABS: Absolute Lymphocyte Count 0.85 X10^3/uL (0.83-4.51); Basophil# 0.03 X10^3/uL; Basophil% 0.4 % (0-1); Eosinophil# 0.13 X10^3/uL; Eosinophils% 1.9 % (0-5); Hematocrit 34.9 % (40-54); Hemoglobin 11.2 g/dL (13.0-16.5); Lymphocyte # 0.85 X10^3/ul (4.0); Lymphocyte % 12.1 % (19-41); Mean Corp Hgb Conc 32.1 g/dL (32-36); Mean Corpuscular Hgb 30.9 pg (27.0-32.0); Mean Corpuscular Volume 96.1 fL (80-94); Mean Platelet Vol. 8.6 fl (6.2-12.0); Monocyte# 0.91 X10^3/uL; NRBC Flagged by Analyzer 0 % (0-5); Neutrophil # 5.02 X10^3/uL (2.7-7.7); Neutrophil % 71.5 % (47-70); Platelet Count 142 K/mm3 (150-450); RBC Distribution Width CV 15.5 % (11.6-14.6); RBC Distribution Width SD 55.2 fl (35.1-43.9); Red Blood Count 3.63 M/mm3 (4.6-6.2)
[2019-10-27 10:31] LABS: International Normalized Ratio 1.1; Prothrombin Time (Protime)PT. 14.1 SECONDS (11.7-14.9)
[2019-10-27] MEDS: fentaNYL 100 MCG/2 ML Ampul 50 MCG IV (10:43)
[2019-10-27 10:56] LABS: Anion Gap 10 (5-15); BUN 31 mg/dL (7-18); BUN/Creat Ratio 6.5 RATIO (10-20); Calcium,Total 12.4 mg/dL (8.5-10.1); Chloride 99 mmol/L (98-107); EST Glomerular Filtration Rate 13 mL/min (>60); Est Glom Filt Rate - Afr Amer 15 mL/min (>60); Estimated Creatinine Clearance 9.88 ml/min; Glucose 114 mg/dL (74-106); Potassium 4.2 mmol/L (3.5-5.1); Sodium Level 134 mmol/L (136-145)
[2019-10-27 11:04] LABS: Lactic Acid 4.2 mmol/L (0.4-1.9)
[2019-10-27 12:09] LABS: Phosphorus 5.7 mg/dL (2.5-4.9)
[2019-10-27 12:10] LABS: Uric Acid 5.3 mg/dL (3.5-7.2)
--- NOTE | 2019-10-27 13:16 | PCM.HP.STD ---
Problem List (1) Adult failure to thrive Status: Acute (2) Lactic acidosis Status: Acute (3) Lymphoma Status: Chronic Qualifiers: Lymphoma type: non-Hodgkin Non-Hodgkin lymphoma type: B-cell B-cell lymphoma type: unspecified B-cell Lymphoma site: multiple regions Qualified Code(s): C85.18 - Unspecified B-cell lymphoma, lymph nodes of multiple sites (4) Hypercalcemia Status: Chronic (5) Generalized weakness Status: Chronic History of Present Illness Date of Admission: 10/27/19 Chief Complaint: Generalised weakness, fall The patient is a 79 year old M with PMHx of ESRD on HD, B-cell lymphoma, with poor prognosis, follows with oncology in the outpatient, hypertension who was recently [facility] from the [facility]. Patient had reportedly missed his dialysis yesterday. He had dialysis Thursday, Thursday, Fridays. He was reportedly going to go to his primary care doctor's office when he said he slid from the car onto the driveway. He denies hitting his head and his head. The EMS were called and had a hard time lifting him up onto the stretcher. His stated to the emergency room department physician . she is unable to take of him as he is progressively weak. Vitals in the ED was 97.4F, heart rate 87, blood pressure was 95/61, respiratory rate was 25, SPO2 was 94% on room air. WBC 7.0, Hb 11.2, Plt 142, INR 1.1, is 134, potassium 4.2, chloride 99, bicarbonate 25, BUN 31, creatinine 4.80, lactic acid was 4.2, calcium is 12.4, phosphorus is 5.7. Chest ray showed bilateral pulmonary nodules, small right pleural effusion with right basilar atelectasis. 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) Morbid obesity (Chronic) E66.01 Benign prostatic hypertrophy (Chronic) N40.0 Hypertension (Chronic) I10 Nephrotic syndrome (Chronic) N04.9 Allergies Sulfa (Sulfonamide Antibiotics) Allergy (Severe, Verified 10/27/19 09:50) Hives metoprolol Allergy (Verified 10/27/19 09:51) Unknown Home Medications: Ambulatory Orders Medication Instructions Recorded Tamsulosin HCl [Flomax] 0.4 mg PO BID 10/23/16 Midodrine HCl [Proamatine] 10 mg PO MOWEFR 06/17/18 Sevelamer Carbonate [Renvela] 1,600 mg PO TID 08/12/19 Dicyclomine HCl 20 mg PO TID 10/27/19 Furosemide [Lasix] 80 mg PO BID 10/27/19 Metoprolol Tartrate [Lopressor 50 mg PO BID 10/27/19 (Beta Minoo)] Omeprazole 20 mg PO DAILY 10/27/19 Surgical History: Surgical History (Last Reviewed 08/18/19 @ 06:23 by Al Gatica MD) 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 Melanoma resection. Psychiatric History: No pertinent psych hx Smoking Status: Never smoker - *Family History Maternal History Items: - - His mother from natural causes Paternal History Items: Heart Disease, - Review of Systems Constitutional: Reports: Anorexia, Malaise, Weakness, Fatigue. Denies: Chills, Fever, Night Sweats, Weight Change Eyes: Denies: Blurred vision, Cataracts, Conjunctivae Inflammation, Pain, Redness, Vision Change HEENT: Denies: Head Aches, Hearing Changes, Sinus Congestion, Sinus Drainage Cardiovascular: Denies: Chest Pain, Palpitations Respiratory: Denies: Cough, Shortness of breath at rest, Sputum production Gastrointestinal: Denies: Abdominal Pain, Nausea, Vomiting Genitourinary: Denies: Dysuria Musculoskeletal: Denies: Joint Pain, Joint Tenderness Skin: Denies: Rash, Wounds Neurological: Denies: Numbness, Tingling, Focal weakness Psychiatric: Denies: Anxiety, Depression, Homicidal Ideations, Suicidal Ideations Hematologic/ Lymphatic: Denies: Easy Bruising, Easy Bleeding VTE Information - Inpt Only VTE Present on Admission: No VTE Pharm Prophylaxis ordered?: Yes Patient Problems: Active and Suspected Problems (Last Reviewed 08/18/19 @ 06:23 by Al Gatica MD) Adult failure to thrive (Acute) Lactic acidosis (Acute) Hypotensive episode (Acute) - Physical Exam Vitals/I&O's: Vital Signs Temp Pulse Resp BP Pulse Ox 97.4 F L 50 L 16 117/57 L 98 10/27/19 09:38 10/27/19 12:52 10/27/19 12:52 10/27/19 12:52 10/27/19 12:52 Oxygen Delivery Method Room Air Weight: 84.35 kg Body Mass Index (BMI) 32.9 Finger Stick Blood Glucose 116 Intake and Output for Last 24 Hours 10/25/19 10/26/19 10/27/19 23:59 23:59 23:59 Intake Total 250 / 250 Balance 250 / 250 General: Alert, Oriented x3, Cooperative, No apparent distress HEENT: Atraumatic, PERRLA, EOMI, Normocephalic, - - hard of hearing Oral: Dry Mucosa Neck: Supple Lungs: Diminished - especially at lung bases Cardiovascular: Regular rate, Regular Rhythm, Normal S1, Normal S2, Murmur - 3/6 Abdomen: Bowel Sounds Present, Soft, Non Tender, Non-Distended, No Hepato-splenomegaly Extremities: Edema - bilateral, trace Skin: No rashes Musculoskeletal: No Tenderness to Palpation of Joints or Extremities Lymphatic: No Cervical, Supraclavicular, or Inguinal Adenopathy Neurological: Cranial nerves II-XII grossly intact, Neuro grossly intact Psych/Mental Status: Normal Affect, Appropriate Laboratory Results 10/27/19 10:05: WBC 7.0, RBC 3.63 L, Hgb 11.2 L, Hct 34.9 L, MCV 96.1 H, MCH 30.9, MCHC 32.1, RDW Std Deviation 55.2 H, RDW Coeff of Cari 15.5 H, Plt Count 142 L, MPV 8.6, Immature Gran % (Auto) 1.100 H, Neut % (Auto) 71.5 H, Lymph % (Auto) 12.1 L, [place] % (Auto) 13.0 H, Eos % (Auto) 1.9, Baso % (Auto) 0.4, Absolute Neuts (auto) 5.0, Absolute Lymphs (auto) 0.85, Nucleated RBC % 0 10/27/19 10:05: PT 14.1, INR 1.1 10/27/19 10:05: Sodium 134 L, Potassium 4.2, Chloride 99, Carbon Dioxide 25.0, Anion Gap 10, BUN 31 H, Creatinine 4.80 H, Estim Creat Clear Calc 9.88, Est GFR (MDRD) Af Amer 15 L, Est GFR (MDRD) Non-Af 13 L, BUN/Creatinine Ratio 6.5 L, Glucose 114 H, Calcium 12.4 H, Troponin I 0.016 10/27/19 10:05: Lactic Acid 4.2 H* 10/27/19 11:34: Uric Acid 5.3 10/27/19 11:34: Ionized Calcium Pending 10/27/19 11:34: Phosphorus 5.7 H Assessment/Plan All Active Problems (Last Reviewed 08/18/19 @ 06:23 by Al Gatica MD) Adult failure to thrive (Acute) Lactic acidosis (Acute) Hypotensive episode (Acute) 79 year old M with PMHx of ESRD on HD, B-cell lymphoma, with poor prognosis, follows with oncology in the outpatient, hypertension who was recently discharged from the [facility] facility 1 week ago, comes in with generalized weakness and fall today 1. Debility, generalized weakness, likely secondary to hypercalcemia Simply discharge a week ago from the residential Continue management for hypercalcemia PT and OT to evaluate and treat 2. Hypercalcemia, history of B-cell lymphoma Has been getting periodic bisphosphonates in the outpatient Discussed with nephrology and oncology, hold off on IV fluids as patient does not make enough urine IV zoledronic acid 4 mg x 1 Repeat blood work in a.m. 3. ESRD on hemodialysis, Thursday?Thursday?Thursday Reportedly missed dialysis on Thursday Nephrology consulted, refused dialysis today Dialysis will be tomorrow as scheduled 4. B-cell lymphoma with poor prognosis and poor performance status, Patient refused palliative care in the past Following oncology in the outpatient 5. Hypertension, fairly relatively hypotensive, blood pressures controlled on the floor Continue on home metoprolol 6. DVT prophylaxis with heparin subcu Code Visit Inpatient E&M: 60571 Init Hosp L3
--- NOTE | 2019-10-27 13:24 | NURSING ---
114 PAINTSIL DEBILTIY, FALL, LACTIC ACIDOSIS
--- NOTE | 2019-10-27 13:28 | NURSING ---
ICU PAINTSIL ANEMIA
[2019-10-27 14:08] LABS: Reflex Lactate? Y
--- NOTE | 2019-10-27 14:15 | PCM.CONS.GEN ---
Reason for Consult History of Present Illness: The patient is a 79 year old M past medical history of end-stage renal disease on hemodialysis lymphoma recurrent falls hypertension who presented for generalized weakness and a fall. He has been having increased weakness and difficulties with activities of daily living for a few days prior to admission. He slipped out of his chair trying to get in the car today. He was unable to get himself back up so the called 911. Patient states that he landed on his buttocks and did not hit his head or lose consciousness. He has chronic knee pain. He denies fever chills chest pain nausea vomiting abdominal pain diarrhea shortness of breath or chest pain. He is not sure when he had his last dialysis. He is has minimal residual urine output. The patient is a poor historian. He has no other complaints today. 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) Morbid obesity (Chronic) E66.01 Benign prostatic hypertrophy (Chronic) N40.0 Hypertension (Chronic) I10 Nephrotic syndrome (Chronic) N04.9 Allergies Sulfa (Sulfonamide Antibiotics) Allergy (Severe, Verified 10/27/19 09:50) Hives metoprolol Allergy (Verified 10/27/19 09:51) Unknown Home Medications: Ambulatory Orders Medication Instructions Recorded Tamsulosin HCl [Flomax] 0.4 mg PO BID 10/23/16 Midodrine HCl [Proamatine] 10 mg PO MOWEFR 06/17/18 Sevelamer Carbonate [Renvela] 1,600 mg PO TID 08/12/19 Dicyclomine HCl 20 mg PO TID 10/27/19 Furosemide [Lasix] 80 mg PO BID 10/27/19 Metoprolol Tartrate [Lopressor 50 mg PO BID 10/27/19 (Beta Minoo)] Omeprazole 20 mg PO DAILY 10/27/19 Surgical History: Surgical History (Last Reviewed 08/18/19 @ 06:23 by Al Gatica MD) Presence of surgically created arteriovenous shunt for hemodialysis Z99.2 CATRINA Surgical History: colectomy, herniorrhaphy, - - Bowel resection secondary to bowel obstruction w/ ventral hernia repair, AVF, R TKR, TURP. Melanoma resection. Psychiatric History: No pertinent psych hx Smoking Status: Never smoker - *Family History Maternal History Items: - - His mother from natural causes Paternal History Items: Heart Disease, - Review of Systems Eyes: Reports: - - Review of systems otherwise negative unless noted in the HPI. He has also chronic back pain. - Physical Exam Vitals/I&O's: Vital Signs Temp Pulse Resp BP Pulse Ox 97.4 F L 72 16 135/74 H 100 10/27/19 13:55 10/27/19 13:55 10/27/19 13:55 10/27/19 13:55 10/27/19 13:55 Oxygen Delivery Method Room Air Weight: 80.5 kg Body Mass Index (BMI) 33.5 Finger Stick Blood Glucose 116 Intake and Output for Last 24 Hours 10/25/19 10/26/19 10/27/19 23:59 23:59 23:59 Intake Total 250 / 250 Balance 250 / 250 General: Alert, Cooperative HEENT: Atraumatic, PERRLA, Normocephalic Neck: Supple, No JVD, Negative Carotid Bruits Lungs: Clear to auscultation, Normal air movement Cardiovascular: Regular rate, No murmurs Abdomen: Bowel Sounds Present, Soft, Non Tender, Obese Extremities: No edema, Capillary Refill Less than 3 Seconds Skin: No rashes, No breakdown Musculoskeletal: No Tenderness to Palpation of Joints or Extremities Neurological: Cranial nerves II-XII grossly intact Psych/Mental Status: Normal Affect, Appropriate Laboratory Results 10/27/19 10:05: WBC 7.0, RBC 3.63 L, Hgb 11.2 L, Hct 34.9 L, MCV 96.1 H, MCH 30.9, MCHC 32.1, RDW Std Deviation 55.2 H, RDW Coeff of Cari 15.5 H, Plt Count 142 L, MPV 8.6, Immature Gran % (Auto) 1.100 H, Neut % (Auto) 71.5 H, Lymph % (Auto) 12.1 L, [place] % (Auto) 13.0 H, Eos % (Auto) 1.9, Baso % (Auto) 0.4, Absolute Neuts (auto) 5.0, Absolute Lymphs (auto) 0.85, Nucleated RBC % 0 10/27/19 10:05: PT 14.1, INR 1.1 10/27/19 10:05: Sodium 134 L, Potassium 4.2, Chloride 99, Carbon Dioxide 25.0, Anion Gap 10, BUN 31 H, Creatinine 4.80 H, Estim Creat Clear Calc 9.88, Est GFR (MDRD) Af Amer 15 L, Est GFR (MDRD) Non-Af 13 L, BUN/Creatinine Ratio 6.5 L, Glucose 114 H, Calcium 12.4 H, Troponin I 0.016 10/27/19 10:05: Lactic Acid 4.2 H* 10/27/19 11:34: Uric Acid 5.3 10/27/19 11:34: Ionized Calcium Pending 10/27/19 11:34: Phosphorus 5.7 H Current Medications Acetaminophen (Tylenol) 650 mg PO Q6H PRN PRN PRN Reason: Pain Score 1-3/Temp > 100.7 F Albuterol Sulfate (Ventolin Aerosols) 2.5 mg INHALATION Q2H PRN PRN PRN Reason: SOB/Wheezing Dicyclomine HCl (Bentyl) 20 mg PO TIDAC DAVY Furosemide (Lasix) 80 mg PO BID DAVY Glucagon () 1 mg IM .X1 PRN PRN Reason: Hypoglycemia Sodium Chloride () 250 mls @ 15 mls/hr IV .[id number] PRN PRN Reason: Saline Flush Dextrose (Dextrose 10%-Water) 250 mls @ 999 mls/hr IV X1 PRN; Protocol PRN Reason: HYPOGLYCEMIA Metoprolol Tartrate (Lopressor (Beta Minoo)) 50 mg PO BID DAVY Midodrine (Proamatine) 10 mg PO MoWeFr@1000 DAVY Ondansetron HCl (Zofran) 4 mg IV Q8H PRN PRN PRN Reason: NAUSEA/VOMITING Oxycodone HCl (Oxyir) 5 mg PO Q8H PRN PRN PRN Reason: Pain Score 6-10/10 Pantoprazole Sodium (Protonix) 20 mg PO DAILY [facility] Senna/Docusate Sodium (Senokot-S, Inocencia-Colace) 2 tablet PO BID PRN PRN PRN Reason: Constipation Sevelamer Carbonate (Renvela) 1,600 mg PO TIDCM [facility] Sodium Chloride () 10 - 40 ml IV UD PRN PRN Reason: SALINE FLUSH Tamsulosin HCl (Flomax) 0.4 mg PO BID [facility] Warfarin Sodium (Coumadin (Pbkc)) 2.5 mg PO SuTuWeThSa@1700 [facility] Warfarin Sodium (Coumadin (Pbkc)) 5 mg PO MoFr@1700 [facility] Assessment/Plan All Active Problems (Last Reviewed 08/18/19 @ 06:23 by Al Gatica MD) Adult failure to thrive (Acute) Hypercalcemia (Acute) ESRD Anemia CKD MBD Hypercalcemia History of lymphoma Fall Patient declines dialysis today we will do dialysis tomorrow and resume Thursday schedule. UF as tolerated. Will stop IV fluids discussed with the primary team. Management of hypercalcemia as per hematology. Hemoglobin is above 11 we will hold DEAN Continue Renvela Continue midodrine d/w hospitalist and hematology. The above assessment and plan was discussed at length with the patient who voiced understanding and agrees to proceed with the plan as outlined above. He was given the opportunity to ask questions and stated that those were answered to his satisfaction. Thank you very much for allowing me to participate in the care of this patient. Please do not hesitate to call if you have any questions or concerns.
[2019-10-27 15:09] LABS: AST(SGOT) 17 U/L (15-37); Alanine Aminotransfer ALT/SGPT 11 U/L (16-61); Albumin, Serum 2.6 g/dL (3.2-5.0); Alkaline Phosphatase 87 U/L (45-117); Bilirubin, Direct 0.19 mg/dL (0.00-0.30); Globulin 3.9 g/dL (2.2-4.2); Protein, Total 6.5 g/dL (6.4-8.2)
[2019-10-27] MEDS: Metoprolol Tartrate 50 MG Tablet PO ×2 (15:26→21:00)
[2019-10-27] MEDS: 0.9% Saline Lock 10 ML Syringe IV (15:27)
[2019-10-27] MEDS: Dicyclomine 10 MG Capsule 20 MG PO (17:06)
[2019-10-27] MEDS: SEVELAMER CARBONATE 800 MG TABLET 1600 MG PO (17:06)
[2019-10-27] MEDS: Furosemide 80 MG Tablet PO (17:06)
[2019-10-27] MEDS: Tamsulosin HCl 0.4 MG Capsule PO (21:00)
[2019-10-27] MEDS: Nepro Liquid 120 ML LIQUID PO (21:00)
[2019-10-27] MEDS: Heparin Injection (Vial) 5,000 UNIT/ML VIAL 5000 UNIT SC (21:00)
[2019-10-27 22:51] LABS: Bedside Glucose 109 mg/dL (70-110)
[2019-10-28] VITALS (12 sets, daily range): BP systolic 105–131; BP diastolic 56–72; PULSE 59–72; RESP 16–20; TEMP 36.3–36.9; O2SAT 94–97
[2019-10-28] MEDS: Dicyclomine 10 MG Capsule 20 MG PO ×3 (06:01→18:01)
[2019-10-28] MEDS: Heparin Injection (Vial) 5,000 UNIT/ML VIAL 5000 UNIT SC ×3 (06:01→23:12)
[2019-10-28 06:26] LABS: Absolute Lymphocyte Count 0.76 X10^3/uL (0.83-4.51); Basophil# 0.03 X10^3/uL; Basophil% 0.4 % (0-1); Eosinophil# 0.14 X10^3/uL; Eosinophils% 2.1 % (0-5); Hematocrit 34.9 % (40-54); Hemoglobin 11.3 g/dL (13.0-16.5); Lymphocyte # 0.76 X10^3/ul (4.0); Lymphocyte % 11.2 % (19-41); Mean Corp Hgb Conc 32.4 g/dL (32-36); Mean Corpuscular Hgb 31.1 pg (27.0-32.0); Mean Corpuscular Volume 96.1 fL (80-94); Mean Platelet Vol. 8.8 fl (6.2-12.0); Monocyte# 0.78 X10^3/uL; Monocyte% 11.5 % (0-10); NRBC Flagged by Analyzer 0 % (0-5); Neutrophil # 4.95 X10^3/uL (2.7-7.7); Neutrophil % 73.2 % (47-70); Platelet Count 144 K/mm3 (150-450); RBC Distribution Width CV 15.5 % (11.6-14.6); RBC Distribution Width SD 54.9 fl (35.1-43.9); Red Blood Count 3.63 M/mm3 (4.6-6.2); White Blood Count 6.8 K/mm3 (4.4-11.0)
[2019-10-28 06:40] LABS: Bedside Glucose 73 mg/dL (70-110)
[2019-10-28 06:59] LABS: ALB/GLOB Ratio 0.7 RATIO (0.9-2.4); AST(SGOT) 16 U/L (15-37); Alanine Aminotransfer ALT/SGPT 11 U/L (16-61); Albumin, Serum 2.4 g/dL (3.2-5.0); Alkaline Phosphatase 78 U/L (45-117); Anion Gap 8 (5-15); BUN 34 mg/dL (7-18); BUN/Creat Ratio 6.9 RATIO (10-20); Calcium,Total 11.6 mg/dL (8.5-10.1); Chloride 101 mmol/L (98-107); Creatinine, Serum 4.94 mg/dL (0.70-1.30); EST Glomerular Filtration Rate 12 mL/min (>60); Est Glom Filt Rate - Afr Amer 15 mL/min (>60); Estimated Creatinine Clearance 8.82 ml/min; Globulin 3.5 g/dL (2.2-4.2); Glucose 79 mg/dL (74-106); Phosphorus 5.5 mg/dL (2.5-4.9); Potassium 4.2 mmol/L (3.5-5.1); Protein, Total 5.9 g/dL (6.4-8.2); Sodium Level 133 mmol/L (136-145)
[2019-10-28] MEDS: SEVELAMER CARBONATE 800 MG TABLET 1600 MG PO ×3 (09:28→18:01)
[2019-10-28 10:17] LABS: Bacteria 0 SEEN /hpf (None Seen); Mucous, Urine 0 SEEN /hpf (<or=2+); Red Blood Cells-Urine 0 SEEN /hpf (0-5); White Blood Cells 0 SEEN /hpf (0-5)
[2019-10-28 10:29] LABS: Color, Urine Yellow (Yellow); Glucose, Dipstick 250 mg/dl (Normal); Ketone-Dipstick Negative (Negative); Leukocyte Esterase-Dipstick Negative /ul (Negative); Nitrite-Dipstick Negative (Negative); Occult Blood-Urine Negative /ul (Negative); Protein-Dipstick 100 mg/dl (Negative); Urine Bilirubin Dipstick Negative (Negative); Urine Clarity Sl. Cloudy (Clear); Urine Urobilinogen Normal (Normal)
[2019-10-28 10:39] LABS: Squamous Epithelial Cells - UA 0-5 SEEN /hpf (0-5)
--- NOTE | 2019-10-28 12:00 | PN_ITS ---
Patient Problems: Active and Suspected Problems (Last Reviewed 08/18/19 @ 06:23 by Al Gatica MD) Adult failure to thrive (Acute) Lactic acidosis (Acute) Hypotensive episode (Acute) Subjective: Denies any complaints no shortness of breath no chest pain - Physical Exam Vitals/I&O's: Vital Signs Temp Pulse Resp BP Pulse Ox 97.5 F L 60 16 105/64 97 10/28/19 08:55 10/28/19 08:55 10/28/19 08:55 10/28/19 08:55 10/28/19 08:55 Oxygen Delivery Method Room Air Weight: 81.7 kg Body Mass Index (BMI) 33.5 Finger Stick Blood Glucose 116 Intake and Output for Last 24 Hours 10/26/19 10/27/19 10/28/19 23:59 23:59 23:59 Intake Total 715 / 715 360 / 360 Output Total 0 / 0 100 / 100 Balance 715 / 715 260 / 260 General: Alert, Oriented x3, Cooperative HEENT: Atraumatic, PERRLA, EOMI, Normocephalic Neck: Supple, No JVD, Negative Carotid Bruits Lungs: Clear to auscultation, Normal air movement Cardiovascular: Regular rate, No murmurs Abdomen: Bowel Sounds Present, Soft, Non Tender, Obese Extremities: No edema, Capillary Refill Less than 3 Seconds, - - Left arm AV access good thrill and bruit Skin: No rashes, No breakdown Musculoskeletal: No Tenderness to Palpation of Joints or Extremities Neurological: Cranial nerves II-XII grossly intact Psych/Mental Status: Normal Affect, Appropriate Laboratory Results 10/27/19 11:34: Uric Acid 5.3 10/27/19 11:34: Phosphorus 5.7 H 10/27/19 14:05: Lactic Acid 2.0 10/27/19 14:20: Total Bilirubin 0.50, Direct Bilirubin 0.19, AST 17, ALT 11 L, Alkaline Phosphatase 87, Total Protein 6.5, Albumin 2.6 L, Globulin 3.9 10/27/19 21:00: POC Glucose 109 10/28/19 06:01: WBC 6.8, RBC 3.63 L, Hgb 11.3 L, Hct 34.9 L, MCV 96.1 H, MCH 31.1, MCHC 32.4, RDW Std Deviation 54.9 H, RDW Coeff of Cari 15.5 H, Plt Count 144 L, MPV 8.8, Immature Gran % (Auto) 1.600 H, Neut % (Auto) 73.2 H, Lymph % (Auto) 11.2 L, [place] % (Auto) 11.5 H, Eos % (Auto) 2.1, Baso % (Auto) 0.4, Absolute Neuts (auto) 5.0, Absolute Lymphs (auto) 0.76 L, Nucleated RBC % 0 10/28/19 06:01: Sodium 133 L, Potassium 4.2, Chloride 101, Carbon Dioxide 24.0, Anion Gap 8, BUN 34 H, Creatinine 4.94 H, Estim Creat Clear Calc 8.82, Est GFR (MDRD) Af Amer 15 L, Est GFR (MDRD) Non-Af 12 L, BUN/Creatinine Ratio 6.9 L, Glucose 79, Calcium 11.6 H, Phosphorus 5.5 H, Total Bilirubin 0.40, AST 16, ALT 11 L, Alkaline Phosphatase 78, Total Protein 5.9 L, Albumin 2.4 L, Globulin 3.5, Albumin/Globulin Ratio 0.7 L 10/28/19 06:01: POC Glucose 73 10/28/19 10:10: Urine Color Yellow, Urine Clarity Sl. Cloudy, Urine pH 7.0, Ur Specific [place] 1.010, Urine Protein 100 H, Urine Glucose (UA) 250 H, Urine Ketones Negative, Urine Occult Blood Negative, Urine Nitrite Negative, Urine Bilirubin Negative, Urine Urobilinogen Normal, Ur Leukocyte Esterase Negative, Urine RBC 0 SEEN, Urine WBC 0 SEEN, Ur Squamous Epith Cells 0-5 SEEN, Urine Bacteria 0 SEEN, Urine Mucus 0 SEEN Current Medications Acetaminophen (Tylenol) 650 mg PO Q6H PRN PRN PRN Reason: Pain Score 1-3/Temp > 100.7 F Albuterol Sulfate (Ventolin Aerosols) 2.5 mg INHALATION Q2H PRN PRN PRN Reason: SOB/Wheezing Dicyclomine HCl (Bentyl) 20 mg PO TIDAC [facility] Last Admin: 10/28/19 06:01 Dose: 20 mg Documented by: Furosemide (Lasix) 80 mg PO BIDLX [facility] Last Admin: 10/27/19 17:06 Dose: 80 mg Documented by: Glucagon () 1 mg IM .X1 PRN PRN Reason: Hypoglycemia Heparin Sodium (Porcine) (Heparin Na) 5,000 unit SC Q8 [facility] Last Admin: 10/28/19 06:01 Dose: 5,000 unit Documented by: Sodium Chloride () 250 mls @ 15 mls/hr IV .[id number] PRN PRN Reason: Saline Flush Dextrose (Dextrose 10%-Water) 250 mls @ 999 mls/hr IV X1 PRN; Protocol PRN Reason: HYPOGLYCEMIA Metoprolol Tartrate (Lopressor (Beta Minoo)) 50 mg PO BID [facility] Last Admin: 10/27/19 21:00 Dose: 50 mg Documented by: Midodrine (Proamatine) 10 mg PO MoWeFr@1000 [facility] Nutritional Formula (Nepro Carb Steady) 120 ml PO 4X/DAY [facility] Last Admin: 10/28/19 11:40 Dose: Not Given Documented by: Ondansetron HCl (Zofran) 4 mg IV Q8H PRN PRN PRN Reason: NAUSEA/VOMITING Oxycodone HCl (Oxyir) 5 mg PO Q8H PRN PRN PRN Reason: Pain Score 6-10/10 Pantoprazole Sodium (Protonix) 20 mg PO DAILY [facility] Senna/Docusate Sodium (Senokot-S, Inocencia-Colace) 2 tablet PO BID PRN PRN PRN Reason: Constipation Sevelamer Carbonate (Renvela) 1,600 mg PO TIDCM [facility] Last Admin: 10/28/19 09:28 Dose: 1,600 mg Documented by: Sodium Chloride () 10 - 40 ml IV UD PRN PRN Reason: SALINE FLUSH Last Admin: 10/27/19 15:27 Dose: 10 ml Documented by: Tamsulosin HCl (Flomax) 0.4 mg PO BID [facility] Last Admin: 10/27/19 21:00 Dose: 0.4 mg Documented by: Medical Necessity - Tobacco Use Smoking Status: Never smoker Assessment/Plan All Active Problems (Last Reviewed 08/18/19 @ 06:23 by Al Gatica MD) Adult failure to thrive (Acute) Lactic acidosis (Acute) Hypotensive episode (Acute) ESRD Anemia CKD MBD Hypercalcemia History of lymphoma Fall resume Thursday schedule. UF as tolerated. Management of hypercalcemia as per hematology s/p Zometa 4mg Ca is improving Hemoglobin is above 11 we will hold DEAN Continue Renvela Continue midodrine
--- NOTE | 2019-10-28 12:30 | CASEMGMT ---
Social Work Copy of pt Living will is in medical record (summary section, legal tab). No record of HCPOA. SW spoke with pt in room and informed of this. Pt stating there is a HCPOA naming and that she will bring a copy in tomorrow when she comes in. SHARON Barrera
--- NOTE | 2019-10-28 13:10 | PN_ITS ---
Patient Problems: Active and Suspected Problems (Last Reviewed 08/18/19 @ 06:23 by Al Gatica MD) Adult failure to thrive (Acute) Lactic acidosis (Acute) Hypotensive episode (Acute) Reason for Visit: Feeling better overall. Vitals/I&O's: Vital Signs Temp Pulse Resp BP Pulse Ox 36.4 C L 60 16 105/64 97 10/28/19 08:55 10/28/19 08:55 10/28/19 08:55 10/28/19 08:55 10/28/19 08:55 Oxygen Delivery Method Room Air Weight: 81.7 kg Body Mass Index (BMI) 33.5 Finger Stick Blood Glucose 116 Intake and Output for Last 24 Hours 10/26/19 10/27/19 10/28/19 23:59 23:59 23:59 Intake Total 715 / 715 360 / 360 Output Total 0 / 0 100 / 100 Balance 715 / 715 260 / 260 General: Alert, Cooperative, No apparent distress HEENT: Atraumatic, Normocephalic Oral: Moist Mucosa, No Gingival or Mucosal Lesions/ Ulcerations Neck: No Nodes, Trachea Midline Lungs: Clear to auscultation, Normal air movement, No rhonchi, No wheeze Cardiovascular: Regular rate, Regular Rhythm, Normal S1, Normal S2 Abdomen: Bowel Sounds Present, Soft, Non Tender, Non-Distended, No Hepato- splenomegaly Extremities: No edema, No Calf Tenderness Skin: No rashes, No breakdown Musculoskeletal: No Tenderness to Palpation of Joints or Extremities, No Muscle Wasting Neurological: Muscle tone normal, - - no clonus. Psych/Mental Status: Normal Affect, Appropriate Laboratory Results 10/27/19 14:05: Lactic Acid 2.0 10/27/19 14:20: Total Bilirubin 0.50, Direct Bilirubin 0.19, AST 17, ALT 11 L, Alkaline Phosphatase 87, Total Protein 6.5, Albumin 2.6 L, Globulin 3.9 10/27/19 21:00: POC Glucose 109 10/28/19 06:01: WBC 6.8, RBC 3.63 L, Hgb 11.3 L, Hct 34.9 L, MCV 96.1 H, MCH 31.1, MCHC 32.4, RDW Std Deviation 54.9 H, RDW Coeff of Cari 15.5 H, Plt Count 144 L, MPV 8.8, Immature Gran % (Auto) 1.600 H, Neut % (Auto) 73.2 H, Lymph % (Auto) 11.2 L, [place] % (Auto) 11.5 H, Eos % (Auto) 2.1, Baso % (Auto) 0.4, Absolute Neuts (auto) 5.0, Absolute Lymphs (auto) 0.76 L, Nucleated RBC % 0 10/28/19 06:01: Sodium 133 L, Potassium 4.2, Chloride 101, Carbon Dioxide 24.0, Anion Gap 8, BUN 34 H, Creatinine 4.94 H, Estim Creat Clear Calc 8.82, Est GFR (MDRD) Af Amer 15 L, Est GFR (MDRD) Non-Af 12 L, BUN/Creatinine Ratio 6.9 L, Glucose 79, Calcium 11.6 H, Phosphorus 5.5 H, Total Bilirubin 0.40, AST 16, ALT 11 L, Alkaline Phosphatase 78, Total Protein 5.9 L, Albumin 2.4 L, Globulin 3.5, Albumin/Globulin Ratio 0.7 L 10/28/19 06:01: POC Glucose 73 10/28/19 10:10: Urine Color Yellow, Urine Clarity Sl. Cloudy, Urine pH 7.0, Ur Specific [place] 1.010, Urine Protein 100 H, Urine Glucose (UA) 250 H, Urine Ketones Negative, Urine Occult Blood Negative, Urine Nitrite Negative, Urine Bilirubin Negative, Urine Urobilinogen Normal, Ur Leukocyte Esterase Negative, Urine RBC 0 SEEN, Urine WBC 0 SEEN, Ur Squamous Epith Cells 0-5 SEEN, Urine Bacteria 0 SEEN, Urine Mucus 0 SEEN Current Medications Acetaminophen (Tylenol) 650 mg PO Q6H PRN PRN PRN Reason: Pain Score 1-3/Temp > 100.7 F Albuterol Sulfate (Ventolin Aerosols) 2.5 mg INHALATION Q2H PRN PRN PRN Reason: SOB/Wheezing Dicyclomine HCl (Bentyl) 20 mg PO TIDAC [facility] Last Admin: 10/28/19 12:08 Dose: 20 mg Documented by: Furosemide (Lasix) 80 mg PO BIDLX [facility] Last Admin: 10/27/19 17:06 Dose: 80 mg Documented by: Glucagon () 1 mg IM .X1 PRN PRN Reason: Hypoglycemia Heparin Sodium (Porcine) (Heparin Na) 5,000 unit SC Q8 [facility] Last Admin: 10/28/19 06:01 Dose: 5,000 unit Documented by: Sodium Chloride () 250 mls @ 15 mls/hr IV .[id number] PRN PRN Reason: Saline Flush Dextrose (Dextrose 10%-Water) 250 mls @ 999 mls/hr IV X1 PRN; Protocol PRN Reason: HYPOGLYCEMIA Metoprolol Tartrate (Lopressor (Beta Minoo)) 50 mg PO BID [facility] Last Admin: 10/27/19 21:00 Dose: 50 mg Documented by: Midodrine (Proamatine) 10 mg PO MoWeFr@1000 [facility] Nutritional Formula (Nepro Carb Steady) 120 ml PO 4X/DAY [facility] Last Admin: 10/28/19 11:40 Dose: Not Given Documented by: Ondansetron HCl (Zofran) 4 mg IV Q8H PRN PRN PRN Reason: NAUSEA/VOMITING Oxycodone HCl (Oxyir) 5 mg PO Q8H PRN PRN PRN Reason: Pain Score 6-10/10 Pantoprazole Sodium (Protonix) 20 mg PO DAILY [facility] Senna/Docusate Sodium (Senokot-S, Inocencia-Colace) 2 tablet PO BID PRN PRN PRN Reason: Constipation Sevelamer Carbonate (Renvela) 1,600 mg PO TIDCM [facility] Last Admin: 10/28/19 12:08 Dose: 1,600 mg Documented by: Sodium Chloride () 10 - 40 ml IV UD PRN PRN Reason: SALINE FLUSH Last Admin: 10/27/19 15:27 Dose: 10 ml Documented by: Tamsulosin HCl (Flomax) 0.4 mg PO BID [facility] Last Admin: 10/27/19 21:00 Dose: 0.4 mg Documented by: Medical Necessity - Tobacco Use Smoking Status: Never smoker Assessment/Plan All Active Problems (Last Reviewed 08/18/19 @ 06:23 by Al Gatica MD) Adult failure to thrive (Acute) Lactic acidosis (Acute) Hypotensive episode (Acute) 1. hypercalcemia * 2/2 lymphoma * received zoledronic acid * improved * hopefully will improve with dialysis * DW Dr. Hinson, no additional recommendations for hypercalcemia at this time. * No fluids since ESRD 2. Debility * PT OT eval * DW patient's , no plan for SNF when he is ready for discharge 3. ESRD * on HD, HD today * nephrology following. 4. Lymphoma * follow up with Dr. Pena next week * DW Dr. Hinson, recommended palliative care, overall poor prognosis. 5. VTE proph: SQ heparin Greater than 35 minutes which greater than 50% of time was counseling about hypercalcemia, its treatment, palliative care and disposition. Patient and his are comfortable with palliative care. Code Visit Inpatient E&M: 15422 Subs Hosp L3
[2019-10-28] MEDS: Nepro Liquid 120 ML LIQUID PO ×2 (13:31→18:01)
[2019-10-28] MEDS: Midodrine HCl 5 MG Tablet 10 MG PO (13:49)
--- NOTE | 2019-10-28 14:17 | NURSING ---
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 Will come around 1830.
--- NOTE | 2019-10-28 14:29 | NURSING ---
Patient refused morning medication. Patient states I will take them tomorrow.
--- NOTE | 2019-10-28 15:10 | CASEMGMT ---
Addendum entered by Bernice Roa 10/28/19 15:51: [facility] and [facility] are able to accept pt if pt and choose to return there. SW to followup with pt tomorrow to determine d/c plan. SHARON Barrera Original Note: Social Work Per RN, pt was Max A x2 to get out of bed. SW placed phone call to pt to discuss d/c plan. Per pt , pt discharged [facility] 10/22 and returned home with as caregiver. Pt stating she could not get pt out of the house on Thursday to go to dialysis and therefore cancelled. On friends assisted in getting pt to a doctor appointment but when pt got to car he had a fall. Long conversation with pt about her difficulty in caring for pt and discharge plan. Emotional support provided. Pt states her two options are to bring pt home and stop dialysis and start hospice or go back to [facility] and continue with dialysis. feels pt is not ready to give up on dialysis and will need to go back to [facility] [facility] at d/c but wants to talk to pt in the morning and clarify what he wants to do. With 's permission, referral made to [facility]. Will await determination if they can accept and will followup with pt tomorrow. SHARON Barrera
--- NOTE | 2019-10-28 22:17 | DIALYSIS ---
Pt tolerated 3hr HD tx well. Net UF -1000ml. See flow record for tx data.
[2019-10-28] MEDS: Tamsulosin HCl 0.4 MG Capsule PO (23:12)
[2019-10-28] MEDS: Furosemide 80 MG Tablet PO (23:12)
[2019-10-28] MEDS: Metoprolol Tartrate 50 MG Tablet PO (23:12)
[2019-10-28] MEDS: Acetaminophen 325 MG Tablet 650 MG PO (23:13)
--- NOTE | 2019-10-28 23:45 | NURSING ---
Report given to oncoming rn at this time.
[2019-10-29] VITALS (14 sets, daily range): BP systolic 100–126; BP diastolic 44–60; PULSE 57–74; RESP 16–20; TEMP 36.6–36.7; O2SAT 95–97
[2019-10-29] MEDS: 0.9% Saline Lock 10 ML Syringe IV
[2019-10-29] MEDS: Heparin Injection (Vial) 5,000 UNIT/ML VIAL 5000 UNIT SC ×3 (06:15→21:13)
[2019-10-29] MEDS: Dicyclomine 10 MG Capsule 20 MG PO ×3 (06:15→17:22)
[2019-10-29] MEDS: Acetaminophen 325 MG Tablet 650 MG PO (06:20)
[2019-10-29 08:03] LABS: Anion Gap 7 (5-15); BUN 18 mg/dL (7-18); BUN/Creat Ratio 5.8 RATIO (10-20); Calcium,Total 10.1 mg/dL (8.5-10.1); Chloride 100 mmol/L (98-107); Creatinine, Serum 3.08 mg/dL (0.70-1.30); EST Glomerular Filtration Rate 21 mL/min (>60); Est Glom Filt Rate - Afr Amer 25 mL/min (>60); Estimated Creatinine Clearance 14.15 ml/min; Glucose 83 mg/dL (74-106); Sodium Level 132 mmol/L (136-145)
[2019-10-29] MEDS: SEVELAMER CARBONATE 800 MG TABLET 1600 MG PO ×3 (08:27→17:23)
--- NOTE | 2019-10-29 08:29 | RAD_ITS ---
STUDY: X-RAY - RIGHT ANKLE REASON FOR EXAM: Male, 79 years old. Pain. TECHNIQUE: 2 view(s) of the ankle. COMPARISON: 01/25/2019. FINDINGS: No acute fracture or dislocation is seen. Heterogeneous appearance of the tibia and fibula most likely related to severe demineralization however infiltrating neoplasm is not excluded. Appearances are somewhat similar to prior exam although previous study was very limited. No significant talotibial degenerative disease. No acute abnormality of the soft tissues, calcified vascular structures. RAD/Ankle 2 Views IMPRESSION: Limited 2 view study of the ankle shows no acute fracture or dislocation. Heterogeneous appearance of the bone density could be demineralization or metastatic disease. Electronically Signed: Rex Doherty MD at 18:51 EST , Service support ,
--- NOTE | 2019-10-29 08:30 | RAD_ITS ---
STUDY: X-RAY - RIGHT FOOT CLINICAL: Male, 79 years old. Pain. TECHNIQUE: 2 view(s) of the foot. COMPARISON: None. FINDINGS: No definite fracture or dislocation seen. Very prominent heterogeneous appearance of the bone density most consistent with severe demineralization. No significant degenerative changes. Calcified arteries at the ankle and in the foot consistent with severe vascular disease. Grossly normal soft tissues. RAD/Foot 2 Views IMPRESSION: No acute fracture or dislocation. Electronically Signed: Rex Doherty MD at 18:53 EST , Service support ,
[2019-10-29] MEDS: oxyCODONE 5 MG Tablet PO (08:36)
--- NOTE | 2019-10-29 08:39 | NURSING ---
[id number] Dr Anna arora see, informed of IV out this am, no new orders to place new IV Remington Mac RN
--- NOTE | 2019-10-29 09:05 | CASEMGMT ---
Addendum entered by Debo Varma 10/29/19 09:12: Phone attempt with Amarilis in Admissions at [facility] to advise that patient and want him to return when medically ready; voice mail message left for Amarilis with this information. JAIME Child Original Note: SOCIAL WORK: This SW met with patient and , Phyllis, in his room this morning. Introduced self and SW role with [facility]. states that they have decided for patient return to [facility] when medically ready. Per review of SW documentation from 10/28, this SW notes that [facility] is able to accept patient upon discharge. SW advised patient and who are pleased. and patient deny any other needs or questions at this time. PLAN: [facility] when medically ready. Green Sheet placed on chart. JAIME Child
[2019-10-29] MEDS: Furosemide 80 MG Tablet PO ×2 (10:48→17:23)
[2019-10-29] MEDS: Tamsulosin HCl 0.4 MG Capsule PO (10:48)
[2019-10-29] MEDS: Nepro Liquid 120 ML LIQUID PO ×2 (10:48→17:28)
[2019-10-29] MEDS: Pantoprazole Sodium 20 MG Tablet PO (10:48)
[2019-10-29] MEDS: Metoprolol Tartrate 50 MG Tablet PO (10:48)
--- NOTE | 2019-10-29 12:48 | PCM.PN.HOSP ---
Patient Problems: Active and Suspected Problems (Last Reviewed 08/18/19 @ 06:23 by Al Gatica MD) Adult failure to thrive (Acute) Lactic acidosis (Acute) Hypotensive episode (Acute) Subjective: Patient seen and examined. He was admitted with a complaint of generalized weakness and fall. [facility] to [facility] and according to his , patient slid from the car and onto the driveway. Was found to be hypercalcemic on admission. He has been managed for hypercalcemia and debility due to recurrent falls. Patient seen and examined. He complained of pain in his right foot. He denied any lightheadedness or dizziness, palpitations, chest pain, diarrhea vomiting. Review of symptoms otherwise negative. Labs and vitals reviewed. Vitals/I&O's: Vital Signs Temp Pulse Resp BP Pulse Ox 98 F 67 20 H 106/56 L 97 10/29/19 12:00 10/29/19 12:00 10/29/19 12:00 10/29/19 12:00 10/29/19 12:00 Oxygen Delivery Method Room Air Weight: 181 lb 3.52 oz Body Mass Index (BMI) 33.5 Finger Stick Blood Glucose 116 Intake and Output for Last 24 Hours 10/27/19 10/28/19 10/29/19 23:59 23:59 23:59 Intake Total 715 / 715 840 / 840 4808 / 4808 Output Total 0 / 0 1100 / 1100 150 / 150 Balance 715 / 715 -260 / -260 4658 / 4658 General: Alert, Oriented x3, Cooperative HEENT: Atraumatic, PERRLA, EOMI, Normocephalic Oral: Dry Mucosa Neck: Supple, No JVD, Negative Carotid Bruits, Negative Hepatojugular Reflux, No Nodes Lungs: Clear to auscultation, Normal air movement, No rhonchi, No wheeze Cardiovascular: Regular rate, Regular Rhythm, Normal S1, Normal S2, No murmurs Abdomen: Bowel Sounds Present, Soft, Non Tender, Non-Distended, No Hepato-splenomegaly Extremities: No clubbing, No cyanosis, No edema, Capillary Refill Less than 3 Seconds Skin: No rashes, No breakdown Musculoskeletal: - - tenderness with dorsiflexion, plantar flexion and rotation of right foot at ankle. No swelling or erythema. Lymphatic: No Cervical, Supraclavicular, or Inguinal Adenopathy Neurological: Cranial nerves II-XII grossly intact Psych/Mental Status: Normal Affect, Appropriate, Alert and oriented to time, place, person, mood and affect Laboratory Results 10/27/19 11:34: Ionized Calcium 7.0 H 10/29/19 06:50: Sodium 132 L, Potassium 4.0, Chloride 100, Carbon Dioxide 25.0, Anion Gap 7, BUN 18, Creatinine 3.08 H, Estim Creat Clear Calc 14.15, Est GFR (MDRD) Af Amer 25 L, Est GFR (MDRD) Non-Af 21 L, BUN/Creatinine Ratio 5.8 L, Glucose 83, Calcium 10.1 Diagnostic Data Chest X-Ray 10/27/19 09:44 IMPRESSION: Bilateral pulmonary nodules. Small right pleural effusion with right basilar atelectasis and/or infiltrate. Electronically Signed: Alek Lewis, at 10:14 EST , Service support , Current Medications Acetaminophen (Tylenol) 650 mg PO Q6H PRN PRN PRN Reason: Pain Score 1-3/Temp > 100.7 F Last Admin: 10/29/19 06:20 Dose: 650 mg Documented by: Albuterol Sulfate (Ventolin Aerosols) 2.5 mg INHALATION Q2H PRN PRN PRN Reason: SOB/Wheezing Dicyclomine HCl (Bentyl) 20 mg PO TIDAC [facility] Last Admin: 10/29/19 12:07 Dose: 20 mg Documented by: Furosemide (Lasix) 80 mg PO BIDLX [facility] Last Admin: 10/29/19 10:48 Dose: 80 mg Documented by: Glucagon () 1 mg IM .X1 PRN PRN Reason: Hypoglycemia Heparin Sodium (Porcine) (Heparin Na) 5,000 unit SC Q8 [facility] Last Admin: 10/29/19 06:15 Dose: 5,000 unit Documented by: Sodium Chloride () 250 mls @ 15 mls/hr IV .[id number] PRN PRN Reason: Saline Flush Dextrose (Dextrose 10%-Water) 250 mls @ 999 mls/hr IV X1 PRN; Protocol PRN Reason: HYPOGLYCEMIA Metoprolol Tartrate (Lopressor (Beta Minoo)) 50 mg PO BID [facility] Last Admin: 10/29/19 10:48 Dose: 50 mg Documented by: Midodrine (Proamatine) 10 mg PO MoWeFr@1000 [facility] Last Admin: 10/28/19 13:49 Dose: 10 mg Documented by: Nutritional Formula (Nepro Carb Steady) 120 ml PO 4X/DAY [facility] Last Admin: 10/29/19 10:48 Dose: 120 ml Documented by: Ondansetron HCl (Zofran) 4 mg IV Q8H PRN PRN PRN Reason: NAUSEA/VOMITING Oxycodone HCl (Oxyir) 5 mg PO Q8H PRN PRN PRN Reason: Pain Score 6-10/10 Last Admin: 10/29/19 08:36 Dose: 5 mg Documented by: Pantoprazole Sodium (Protonix) 20 mg PO DAILY [facility] Last Admin: 10/29/19 10:48 Dose: 20 mg Documented by: Senna/Docusate Sodium (Senokot-S, Inocencia-Colace) 2 tablet PO BID PRN PRN PRN Reason: Constipation Sevelamer Carbonate (Renvela) 1,600 mg PO TIDCM [facility] Last Admin: 10/29/19 12:06 Dose: 1,600 mg Documented by: Sodium Chloride () 10 - 40 ml IV UD PRN PRN Reason: SALINE FLUSH Last Admin: 10/29/19 00:00 Dose: 10 ml Documented by: Tamsulosin HCl (Flomax) 0.4 mg PO BID [facility] Last Admin: 10/29/19 10:48 Dose: 0.4 mg Documented by: STROKE Vital Signs/Narrative: Vital Signs Temp Pulse Resp BP Pulse Ox 10/29/19 12:00 98 F 67 20 H 106/56 L 97 10/29/19 11:53 68 10/29/19 10:48 71 126/53 H 10/29/19 10:00 71 20 H 97 10/29/19 09:35 72 Medical Necessity - Tobacco Use Smoking Status: Never smoker Assessment/Plan All Active Problems (Last Reviewed 08/18/19 @ 06:23 by Al Gatica MD) Adult failure to thrive (Acute) Lactic acidosis (Acute) Hypotensive episode (Acute) 1. Hypercalcemia Due lymphoma. Receive zoledronic acid and calcium is down to 10.1 today. Not be hydrated with fluids as he has ESRD. Discussed with oncology and oncology had no additional recommendations for hypercalcemia as it was thought to be due to lymphoma. will monitor 2. Right ankle and foot pain Denies any history of gout. Has pain with movement of right foot at ankle. Will get x-ray of right foot and ankle. on tylenol for pain 3. Debility due to recurrent falls PT OT on board states she cannot take care of him in his current state, patient will need placement. 4. History of lymphoma: follows up with Oncology. Oncology (Dr Hinson) recommended palliative care due to overall poor prognosis 5. ESRD: On hemodialysis. On sevelamer and furosemide 80 mg twice daily. Nephrology on board. DVT prophylaxis: heparin. Code Visit Inpatient E&M: 67551 Subs Hosp L2
--- NOTE | 2019-10-29 18:48 | PCM.PROGNOTE ---
Patient Problems: Active and Suspected Problems (Last Reviewed 08/18/19 @ 06:23 by Al Gatica MD) Adult failure to thrive (Acute) Lactic acidosis (Acute) Hypotensive episode (Acute) Subjective: No chest pain no shortness of breath no complaints - Physical Exam Vitals/I&O's: Vital Signs Temp Pulse Resp BP Pulse Ox 98 F 68 20 H 100/60 96 10/29/19 16:00 10/29/19 16:19 10/29/19 16:00 10/29/19 16:00 10/29/19 16:00 Oxygen Delivery Method Room Air Weight: 82.2 kg Body Mass Index (BMI) 33.5 Finger Stick Blood Glucose 116 Intake and Output for Last 24 Hours 10/27/19 10/28/19 10/29/19 23:59 23:59 23:59 Intake Total 715 / 715 840 / 840 5168 / 5168 Output Total 0 / 0 1100 / 1100 250 / 250 Balance 715 / 715 -260 / -260 4918 / 4918 General: Alert, Oriented x3, Cooperative HEENT: Atraumatic, PERRLA, EOMI, Normocephalic Neck: Supple, No JVD, Negative Carotid Bruits Lungs: Clear to auscultation, Normal air movement Cardiovascular: Regular rate, No murmurs Abdomen: Bowel Sounds Present, Soft, Non Tender, Obese Extremities: No edema, Capillary Refill Less than 3 Seconds Skin: No rashes, No breakdown Musculoskeletal: No Tenderness to Palpation of Joints or Extremities Neurological: Cranial nerves II-XII grossly intact Psych/Mental Status: Normal Affect, Appropriate Laboratory Results 10/29/19 06:50: Sodium 132 L, Potassium 4.0, Chloride 100, Carbon Dioxide 25.0, Anion Gap 7, BUN 18, Creatinine 3.08 H, Estim Creat Clear Calc 14.15, Est GFR (MDRD) Af Amer 25 L, Est GFR (MDRD) Non-Af 21 L, BUN/Creatinine Ratio 5.8 L, Glucose 83, Calcium 10.1 Current Medications Acetaminophen (Tylenol) 650 mg PO Q6H PRN PRN PRN Reason: Pain Score 1-3/Temp > 100.7 F Last Admin: 10/29/19 06:20 Dose: 650 mg Documented by: Albuterol Sulfate (Ventolin Aerosols) 2.5 mg INHALATION Q2H PRN PRN PRN Reason: SOB/Wheezing Dicyclomine HCl (Bentyl) 20 mg PO TIDAC [facility] Last Admin: 10/29/19 17:22 Dose: 20 mg Documented by: Furosemide (Lasix) 80 mg PO BIDLX [facility] Last Admin: 10/29/19 17:23 Dose: 80 mg Documented by: Glucagon () 1 mg IM .X1 PRN PRN Reason: Hypoglycemia Heparin Sodium (Porcine) (Heparin Na) 5,000 unit SC Q8 [facility] Last Admin: 10/29/19 14:23 Dose: 5,000 unit Documented by: Sodium Chloride () 250 mls @ 15 mls/hr IV .[id number] PRN PRN Reason: Saline Flush Dextrose (Dextrose 10%-Water) 250 mls @ 999 mls/hr IV X1 PRN; Protocol PRN Reason: HYPOGLYCEMIA Metoprolol Tartrate (Lopressor (Beta Minoo)) 50 mg PO BID [facility] Last Admin: 10/29/19 10:48 Dose: 50 mg Documented by: Midodrine (Proamatine) 10 mg PO MoWeFr@1000 [facility] Last Admin: 10/28/19 13:49 Dose: 10 mg Documented by: Nutritional Formula (Nepro Carb Steady) 120 ml PO 4X/DAY [facility] Last Admin: 10/29/19 17:28 Dose: 120 ml Documented by: Ondansetron HCl (Zofran) 4 mg IV Q8H PRN PRN PRN Reason: NAUSEA/VOMITING Oxycodone HCl (Oxyir) 5 mg PO Q8H PRN PRN PRN Reason: Pain Score 6-10/10 Last Admin: 10/29/19 08:36 Dose: 5 mg Documented by: Pantoprazole Sodium (Protonix) 20 mg PO DAILY [facility] Last Admin: 10/29/19 10:48 Dose: 20 mg Documented by: Senna/Docusate Sodium (Senokot-S, Inocencia-Colace) 2 tablet PO BID PRN PRN PRN Reason: Constipation Sevelamer Carbonate (Renvela) 1,600 mg PO TIDCM [facility] Last Admin: 10/29/19 17:23 Dose: 1,600 mg Documented by: Sodium Chloride () 10 - 40 ml IV UD PRN PRN Reason: SALINE FLUSH Last Admin: 10/29/19 00:00 Dose: 10 ml Documented by: Tamsulosin HCl (Flomax) 0.4 mg PO BID [facility] Last Admin: 10/29/19 10:48 Dose: 0.4 mg Documented by: Medical Necessity - Tobacco Use Smoking Status: Never smoker Assessment/Plan All Active Problems (Last Reviewed 08/18/19 @ 06:23 by Al Gatica MD) Adult failure to thrive (Acute) Lactic acidosis (Acute) Hypotensive episode (Acute) ESRD Anemia CKD MBD Hypercalcemia History of lymphoma Fall continue Thursday schedule. UF as tolerated. Management of hypercalcemia as per hematology s/p Zometa 4mg Ca is improving now 10.1 Hemoglobin is above 11 we will hold DEAN Continue Renvela Continue midodrine
[2019-10-30] VITALS (10 sets, daily range): BP systolic 101–112; BP diastolic 45–56; PULSE 58–67; RESP 16–18; TEMP 36.4–36.9; O2SAT 93–98
[2019-10-30] MEDS: Dicyclomine 10 MG Capsule 20 MG PO ×3 (06:28→17:04)
[2019-10-30] MEDS: Heparin Injection (Vial) 5,000 UNIT/ML VIAL 5000 UNIT SC ×3 (06:28→21:23)
[2019-10-30 06:30] LABS: Absolute Lymphocyte Count 0.75 X10^3/uL (0.83-4.51); Absolute Neutrophil Count 4.1 X10^3/uL (2.0-7.7); Basophil# 0.02 X10^3/uL; Basophil% 0.3 % (0-1); Eosinophils% 1.7 % (0-5); Hematocrit 30.9 % (40-54); Hemoglobin 9.8 g/dL (13.0-16.5); Lymphocyte # 0.75 X10^3/ul (4.0); Lymphocyte % 12.5 % (19-41); Mean Corp Hgb Conc 31.7 g/dL (32-36); Mean Corpuscular Hgb 30.6 pg (27.0-32.0); Mean Corpuscular Volume 96.6 fL (80-94); Mean Platelet Vol. 9.3 fl (6.2-12.0); Monocyte# 1.01 X10^3/uL; Monocyte% 16.8 % (0-10); NRBC Flagged by Analyzer 0 % (0-5); Neutrophil # 4.08 X10^3/uL (2.7-7.7); Neutrophil % 67.9 % (47-70); Platelet Count 111 K/mm3 (150-450); RBC Distribution Width CV 15.6 % (11.6-14.6); RBC Distribution Width SD 55.6 fl (35.1-43.9)
[2019-10-30 07:38] LABS: Anion Gap 7 (5-15); BUN 30 mg/dL (7-18); BUN/Creat Ratio 7.4 RATIO (10-20); Calcium,Total 10.5 mg/dL (8.5-10.1); Chloride 97 mmol/L (98-107); Creatinine, Serum 4.03 mg/dL (0.70-1.30); EST Glomerular Filtration Rate 15 mL/min (>60); Est Glom Filt Rate - Afr Amer 19 mL/min (>60); Estimated Creatinine Clearance 10.81 ml/min; Glucose 85 mg/dL (74-106); Potassium 3.9 mmol/L (3.5-5.1); Sodium Level 132 mmol/L (136-145)
[2019-10-30] MEDS: SEVELAMER CARBONATE 800 MG TABLET 1600 MG PO ×3 (08:21→17:04)
--- NOTE | 2019-10-30 12:18 | PCM.PN.HOSP ---
Patient Problems: Active and Suspected Problems (Last Reviewed 08/18/19 @ 06:23 by Al Gatica MD) Adult failure to thrive (Acute) Lactic acidosis (Acute) Hypotensive episode (Acute) Subjective: Patient seen and examined. He had an uneventful night and had no complaints. Review of systems otherwise negative. Pain in his right foot is much better. Labs and vitals reviewed. Vitals/I&O's: Vital Signs Temp Pulse Resp BP Pulse Ox 98.0 F 65 16 101/56 L 93 10/30/19 10:00 10/30/19 10:07 10/30/19 10:00 10/30/19 10:07 10/30/19 10:00 Oxygen Delivery Method Room Air Weight: 179 lb 14.355 oz Body Mass Index (BMI) 33.5 Finger Stick Blood Glucose 116 Intake and Output for Last 24 Hours 10/28/19 10/29/19 10/30/19 23:59 23:59 23:59 Intake Total 840 / 840 5168 / 5288 180 / 180 Output Total 1100 / 1100 250 / 250 Balance -260 / -260 4918 / 5038 180 / 180 General: Alert, Oriented x3, Cooperative HEENT: Atraumatic, PERRLA, EOMI, Normocephalic Oral: Dry Mucosa Neck: Supple, No JVD, Negative Carotid Bruits, Negative Hepatojugular Reflux, No Nodes Lungs: Clear to auscultation, Normal air movement, No rhonchi, No wheeze Cardiovascular: Regular rate, Regular Rhythm, Normal S1, Normal S2, No murmurs Abdomen: Bowel Sounds Present, Soft, Non Tender, Non-Distended, No Hepato-splenomegaly Extremities: No clubbing, No cyanosis, No edema, Capillary Refill Less than 3 Seconds Skin: No rashes, No breakdown Musculoskeletal: - - right foot tenderness has resolved. able to dorsiflex, plantarflex and rotate right foot with no pain. Lymphatic: No Cervical, Supraclavicular, or Inguinal Adenopathy Neurological: Cranial nerves II-XII grossly intact Psych/Mental Status: Normal Affect, Appropriate, Alert and oriented to time, place, person, mood and affect Laboratory Results 10/30/19 05:35: WBC 6.0, RBC 3.20 L, Hgb 9.8 L, Hct 30.9 L, MCV 96.6 H, MCH 30.6, MCHC 31.7 L, RDW Std Deviation 55.6 H, RDW Coeff of Cari 15.6 H, Plt Count 111 L, MPV 9.3, Immature Gran % (Auto) 0.800, Neut % (Auto) 67.9, Lymph % (Auto) 12.5 L, [place] % (Auto) 16.8 H, Eos % (Auto) 1.7, Baso % (Auto) 0.3, Absolute Neuts (auto) 4.1, Absolute Lymphs (auto) 0.75 L, Nucleated RBC % 0 10/30/19 05:35: Sodium 132 L, Potassium 3.9, Chloride 97 L, Carbon Dioxide 28.0, Anion Gap 7, BUN 30 H, Creatinine 4.03 H, Estim Creat Clear Calc 10.81, Est GFR (MDRD) Af Amer 19 L, Est GFR (MDRD) Non-Af 15 L, BUN/Creatinine Ratio 7.4 L, Glucose 85, Calcium 10.5 H Current Medications Acetaminophen (Tylenol) 650 mg PO Q6H PRN PRN PRN Reason: Pain Score 1-3/Temp > 100.7 F Last Admin: 10/29/19 06:20 Dose: 650 mg Documented by: Albuterol Sulfate (Ventolin Aerosols) 2.5 mg INHALATION Q2H PRN PRN PRN Reason: SOB/Wheezing Dicyclomine HCl (Bentyl) 20 mg PO TIDAC [facility] Last Admin: 10/30/19 12:06 Dose: 20 mg Documented by: Furosemide (Lasix) 80 mg PO BIDLX [facility] Last Admin: 10/30/19 10:10 Dose: Not Given Documented by: Glucagon () 1 mg IM .X1 PRN PRN Reason: Hypoglycemia Heparin Sodium (Porcine) (Heparin Na) 5,000 unit SC Q8 [facility] Last Admin: 10/30/19 06:28 Dose: 5,000 unit Documented by: Sodium Chloride () 250 mls @ 15 mls/hr IV .[id number] PRN PRN Reason: Saline Flush Dextrose (Dextrose 10%-Water) 250 mls @ 999 mls/hr IV X1 PRN; Protocol PRN Reason: HYPOGLYCEMIA Metoprolol Tartrate (Lopressor (Beta Minoo)) 50 mg PO BID [facility] Last Admin: 10/30/19 10:07 Dose: Not Given Documented by: Midodrine (Proamatine) 10 mg PO MoWeFr@1000 [facility] Last Admin: 10/28/19 13:49 Dose: 10 mg Documented by: Nutritional Formula (Nepro Carb Steady) 120 ml PO 4X/DAY [facility] Last Admin: 10/30/19 10:09 Dose: Not Given Documented by: Ondansetron HCl (Zofran) 4 mg IV Q8H PRN PRN PRN Reason: NAUSEA/VOMITING Oxycodone HCl (Oxyir) 5 mg PO Q8H PRN PRN PRN Reason: Pain Score 6-10/10 Last Admin: 10/29/19 08:36 Dose: 5 mg Documented by: Pantoprazole Sodium (Protonix) 20 mg PO DAILY [facility] Last Admin: 10/30/19 10:11 Dose: Not Given Documented by: Senna/Docusate Sodium (Senokot-S, Inocencia-Colace) 2 tablet PO BID PRN PRN PRN Reason: Constipation Sevelamer Carbonate (Renvela) 1,600 mg PO TIDCM [facility] Last Admin: 10/30/19 12:07 Dose: 1,600 mg Documented by: Sodium Chloride () 10 - 40 ml IV UD PRN PRN Reason: SALINE FLUSH Last Admin: 10/29/19 00:00 Dose: 10 ml Documented by: Tamsulosin HCl (Flomax) 0.4 mg PO BID [facility] Last Admin: 10/30/19 10:11 Dose: Not Given Documented by: STROKE Vital Signs/Narrative: Vital Signs Temp Pulse Resp BP Pulse Ox 10/30/19 10:07 65 101/56 L 10/30/19 10:00 98.0 F 67 16 101/56 L 93 Medical Necessity - Tobacco Use Smoking Status: Never smoker Assessment/Plan All Active Problems (Last Reviewed 08/18/19 @ 06:23 by Al Gatica MD) Adult failure to thrive (Acute) Lactic acidosis (Acute) Hypotensive episode (Acute) 1. Hypercalcemia Due lymphoma. Receive zoledronic acid and calcium is down to 10.5 today. Couldnt be hydrated with fluids as he has ESRD. Discussed with oncology: no additional recommendations for hypercalcemia as it was thought to be due to lymphoma. will monitor 2. Right ankle and foot pain resolved. Right foot and ankle xray was negative for any fractures, but showed very prominent heterogenous appearance of bone density consistent with severe demineralisation. PT/OT on board. on tylenol prn for pain. 3. Debility due to recurrent falls PT OT on board will need placement 4. History of lymphoma: follows up with Oncology. Oncology (Dr Hinson) recommended palliative care due to overall poor prognosis 5. ESRD: On hemodialysis. On sevelamer and furosemide 80 mg twice daily. Nephrology on board. DVT prophylaxis: heparin. Code Visit Inpatient E&M: 53901 Subs Hosp L2
[2019-10-30] MEDS: Furosemide 80 MG Tablet PO (17:05)
[2019-10-30] MEDS: Metoprolol Tartrate 50 MG Tablet PO (21:22)
[2019-10-31] VITALS (9 sets, daily range): BP systolic 103–129; BP diastolic 54–59; PULSE 60–73; RESP 16–18; TEMP 36.7–36.8; O2SAT 96–98
[2019-10-31] MEDS: Dicyclomine 10 MG Capsule 20 MG PO ×2 (06:11→12:37)
[2019-10-31] MEDS: Heparin Injection (Vial) 5,000 UNIT/ML VIAL 5000 UNIT SC ×2 (06:11→21:20)
[2019-10-31 06:18] LABS: Absolute Lymphocyte Count 0.77 X10^3/uL (0.83-4.51); Absolute Neutrophil Count 5.4 X10^3/uL (2.0-7.7); Basophil# 0.01 X10^3/uL; Basophil% 0.1 % (0-1); Eosinophil# 0.11 X10^3/uL; Eosinophils% 1.5 % (0-5); Hematocrit 30.7 % (40-54); Lymphocyte # 0.77 X10^3/ul (4.0); Lymphocyte % 10.8 % (19-41); Mean Corp Hgb Conc 32.6 g/dL (32-36); Mean Corpuscular Hgb 31.3 pg (27.0-32.0); Mean Corpuscular Volume 95.9 fL (80-94); Mean Platelet Vol. 9.4 fl (6.2-12.0); Monocyte% 11.2 % (0-10); NRBC Flagged by Analyzer 0 % (0-5); Neutrophil # 5.39 X10^3/uL (2.7-7.7); Neutrophil % 75.3 % (47-70); Platelet Count 114 K/mm3 (150-450); RBC Distribution Width CV 15.5 % (11.6-14.6); RBC Distribution Width SD 54.5 fl (35.1-43.9); White Blood Count 7.2 K/mm3 (4.4-11.0)
[2019-10-31 06:41] LABS: Albumin, Serum 2.1 g/dL (3.2-5.0); BUN 37 mg/dL (7-18); BUN/Creat Ratio 7.7 RATIO (10-20); Calcium,Total 10.3 mg/dL (8.5-10.1); Chloride 98 mmol/L (98-107); Creatinine, Serum 4.82 mg/dL (0.70-1.30); EST Glomerular Filtration Rate 12 mL/min (>60); Est Glom Filt Rate - Afr Amer 15 mL/min (>60); Estimated Creatinine Clearance 9.04 ml/min; Glucose 76 mg/dL (74-106); Phosphorus 4.2 mg/dL (2.5-4.9); Potassium 3.9 mmol/L (3.5-5.1); Sodium Level 132 mmol/L (136-145)
[2019-10-31] MEDS: SEVELAMER CARBONATE 800 MG TABLET 1600 MG PO (09:14)
[2019-10-31] MEDS: Tamsulosin HCl 0.4 MG Capsule PO ×2 (09:14→21:21)
[2019-10-31] MEDS: Furosemide 80 MG Tablet PO (09:14)
[2019-10-31] MEDS: Midodrine HCl 5 MG Tablet 10 MG PO (09:15)
[2019-10-31] MEDS: Pantoprazole Sodium 20 MG Tablet PO (09:15)
--- NOTE | 2019-10-31 10:09 | PCM.TXEXTCAR ---
- Diet 10/27/19 13:47 Diet: Renal: 60 gm protein Food consistency:: Regular Liquid Consistency:: Regular/Thin - Routine Orders/Code Status Enema Type: Fleetz Enema Frequency: Daily PRN Suppository Type: Dulcolax 10mg Suppository Frequency: Daily PRN O2 Frequency: PRN Keep PO Greater than or Equal to (%): 90 Routine Lab Work: - - renal profile, to monitor Calcium levels - Therapies Weight Bearing: Weight bearing as tolerated Physical Therapy: Eval and Treat Occupational Therapy: Eval and Treat - Allergies/Procedures Done in Hospital Allergies/Adverse Reactions: Allergies Sulfa (Sulfonamide Antibiotics) Allergy (Severe, Verified 10/27/19 09:50) Hives metoprolol Allergy (Verified 10/27/19 09:51) Unknown Procedures: None - Type of Care/Length of Stay Estimated LOS: Convalescent Care Less Than 30 days Type of Care Needed: Skilled Rehab Potential: Poor Prognosis: Poor - Additional Orders/Day of Discharge Day of Discharge: 10/31/19 - Dietary and Speech Recommendations Dietitian Recommendations/Changes: Suggest liberalize diet to Cardiac/Low sodium with fluid restriction as indicated; protein restriction not warranted as pt on hemodialysis. Will provide pt Nepro Carb Steady 120 ml PO 4x/day at [facility]. [ End ] - Follow Up Care Primary Care Physician: Dona Satniago MD [Primary Care Provider] - Please follow up with your Primary Care Physician in: one week Please Follow Up With: Dona Santiago MD Please Follow Up With: Rafita Brewer MD When: 1-2 weeks Please Follow Up With: Williams Pena DO When: 1-2 weeks
--- NOTE | 2019-10-31 10:14 | DS.PCM_ITS ---
Discharge Date and Diagnosis - Problem List Patient Problems: Active and Suspected Problems (Last Reviewed 08/18/19 @ 06:23 by Al Gatica MD) Adult failure to thrive (Acute) Lactic acidosis (Acute) Hypotensive episode (Acute) Date of Admission: 10/27/19 Date of Discharge: 10/31/19 - Primary Discharge Diagnosis Active and Suspected Problems (Last Reviewed 08/18/19 @ 06:23 by Al Gatica MD) Adult failure to thrive (Acute) Lactic acidosis (Acute) Hypotensive episode (Acute) hypercalcemia - Secondary Discharge Diagnosis Chronic Problems (Last Reviewed 08/18/19 @ 06:23 by Al Gatica MD) MRSA pneumonia (Chronic) Lymphoma (Chronic) Hypercalcemia (Chronic) Generalized weakness (Chronic) ESRD (end stage renal disease) (Chronic) 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 Small right pleural effusion with right basilar atelectasis and/or infiltrate. Electronically Signed: Alek Lewis, at 10:14 EST , Service support , Ankle X-Ray 10/29/19 08:29 IMPRESSION: Limited 2 view study of the ankle shows no acute fracture or dislocation. Heterogeneous appearance of the bone density could be demineralization or metastatic disease. Electronically Signed: Rex Doherty MD at 18:51 EST , Service support , Foot X-Ray 10/29/19 08:30 IMPRESSION: No acute fracture or dislocation. Electronically Signed: Rex Doherty MD at 18:53 EST , Service support , nephrology- Dr Brewer Operations: None Procedures: None Summary of Care Provided: The patient is a 79 year old M with an extensive past medical history which includes ESRD on hemodialysis, B-cell lymphoma with poor prognosis and hypertension. He was admitted through the ED on 10/27/2019 with a complaint of having missed dialysis on the day prior to admission. He also slid from his car onto his driveway with denying that he actually fell. The EMS were called and had difficulty lifting him up onto the stretcher. said he had been getting progressively weak. On admission, lactic acid was 4.2 and creatinine was 4.8 with calcium of 12.4 and phosphorus of 5.7. Chest x-ray showed bilateral pulmonary nodules with small right pleural effusion with right basilar atelectasis. He was admitted and managed for debility and generalized weakness likely secondary to hypercalcemia, and hypercalcemia due to B-cell lymphoma. Patient had been discharged from correction just about a week before and had been getting periodic bisphosphonates in the outpatient setting on account of hypercalcemia. Hypercalcemia was thought to be due to B-cell lymphoma he was given 1 dose of IV zoledronic acid. Patient had his regular sessions of dialysis during admission. Patient's stated that she could not take care of him in his weak state and requested that he be discharged to a correction. Patient subsequently complained of right ankle and foot pain but x-rays of the right foot and ankle were essentially negative for any acute pathology. Patient remained stable and was discharged to his correction on 10/31/2019. Prior to discharge, hospitalist called patient's primary oncologist Dr. Pena to ask if he would recommend patient being given zoledronic acid again for hypercalcemia as calcium was 10.3 on day of discharge. Dr. Pena stated that patient's will keep on having recurrent hypercalcemia because of the cancer and also that there was no further treatment that could be offered to the patient for his cancer. Patient will therefore be followed up on outpatient basis. Patient was discharged on 10/31/2019. Patient seen and examined prior to discharge. He had no complaints and felt well. Review systems otherwise negative. Labs and vitals reviewed. Home Medication reviewed and reconciled. o/e: Vital Signs Height 5 ft 1 in Weight: 177 lb 14.609 oz Weight in Pounds 177.9 lbs Pulse Ox 96 Temperature 98.3 F Pulse Rate 60 Respiratory Rate 16 Blood Pressure 103/56 Blood Pressure Position Semi-Fowlers General: Alert, Oriented x3, Cooperative HEENT: Atraumatic, PERRLA, EOMI, Normocephalic Oral: Dry Mucosa Neck: Supple, No JVD, Negative Carotid Bruits, Negative Hepatojugular Reflux, No Nodes Lungs: Clear to auscultation, Normal air movement, No rhonchi, No wheeze Cardiovascular: Regular rate, Regular Rhythm, Normal S1, Normal S2, No murmurs Abdomen: Bowel Sounds Present, Soft, Non Tender, Non-Distended, No Hepato- splenomegaly Extremities: No clubbing, No cyanosis, No edema, Capillary Refill Less than 3 Seconds Skin: No rashes, No breakdown Musculoskeletal: - - right foot tenderness has resolved. able to dorsiflex, plantarflex and rotate right foot with no pain. Lymphatic: No Cervical, Supraclavicular, or Inguinal Adenopathy Neurological: Cranial nerves II-XII grossly intact Psych/Mental Status: Normal Affect, Appropriate, Alert and oriented to time, place, person, mood and affect Plan as above. 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 Patient Problems: Active and Suspected Problems (Last Reviewed 08/18/19 @ 06:23 by Al Gatica MD) Adult failure to thrive (Acute) Lactic acidosis (Acute) Hypotensive episode (Acute) - Physical Exam Vitals/I&O's: Vital Signs Temp Pulse Resp BP Pulse Ox 98.3 F 60 16 103/56 L 96 10/31/19 09:09 10/31/19 09:15 10/31/19 09:09 10/31/19 09:15 10/31/19 09:09 Oxygen Delivery Method Room Air Weight: 177 lb 14.609 oz Body Mass Index (BMI) 33.5 Finger Stick Blood Glucose 116 Intake and Output for Last 24 Hours 10/29/19 10/30/19 10/31/19 23:59 23:59 23:59 Intake Total 5168 / 5288 670 / 670 Output Total 250 / 250 120 / 220 100 / 100 Balance 4918 / 5038 550 / 450 -100 / -100 Laboratory Results 10/31/19 05:55: WBC 7.2, RBC 3.20 L, Hgb 10.0 L, Hct 30.7 L, MCV 95.9 H, MCH 31.3, MCHC 32.6, RDW Std Deviation 54.5 H, RDW Coeff of Cari 15.5 H, Plt Count 114 L, MPV 9.4, Immature Gran % (Auto) 1.100 H, Neut % (Auto) 75.3 H, Lymph % (Auto) 10.8 L, [place] % (Auto) 11.2 H, Eos % (Auto) 1.5, Baso % (Auto) 0.1, Absolute Neuts (auto) 5.4, Absolute Lymphs (auto) 0.77 L, Nucleated RBC % 0 10/31/19 05:55: Sodium 132 L, Potassium 3.9, Chloride 98, Carbon Dioxide 29.0, BUN 37 H, Creatinine 4.82 H, Estim Creat Clear Calc 9.04, Est GFR (MDRD) Af Amer 15 L, Est GFR (MDRD) Non-Af 12 L, BUN/Creatinine Ratio 7.7 L, Glucose 76, Calcium 10.3 H, Phosphorus 4.2, Albumin 2.1 L Current Medications Acetaminophen (Tylenol) 650 mg PO Q6H PRN PRN PRN Reason: Pain Score 1-3/Temp > 100.7 F Last Admin: 10/29/19 06:20 Dose: 650 mg Documented by: Albuterol Sulfate (Ventolin Aerosols) 2.5 mg INHALATION Q2H PRN PRN PRN Reason: SOB/Wheezing Dicyclomine HCl (Bentyl) 20 mg PO TIDAC [facility] Last Admin: 10/31/19 06:11 Dose: 20 mg Documented by: Furosemide (Lasix) 80 mg PO BIDLX [facility] Last Admin: 10/31/19 09:14 Dose: 80 mg Documented by: Glucagon () 1 mg IM .X1 PRN PRN Reason: Hypoglycemia Heparin Sodium (Porcine) (Heparin Na) 5,000 unit SC Q8 [facility] Last Admin: 10/31/19 06:11 Dose: 5,000 unit Documented by: Sodium Chloride () 250 mls @ 15 mls/hr IV .[id number] PRN PRN Reason: Saline Flush Dextrose (Dextrose 10%-Water) 250 mls @ 999 mls/hr IV X1 PRN; Protocol PRN Reason: HYPOGLYCEMIA Metoprolol Tartrate (Lopressor (Beta Minoo)) 50 mg PO BID [facility] Last Admin: 10/31/19 09:15 Dose: Not Given Documented by: Midodrine (Proamatine) 10 mg PO MoWeFr@1000 [facility] Last Admin: 10/31/19 09:15 Dose: 10 mg Documented by: Nutritional Formula (Nepro Carb Steady) 120 ml PO 4X/DAY [facility] Last Admin: 10/31/19 09:16 Dose: Not Given Documented by: Ondansetron HCl (Zofran) 4 mg IV Q8H PRN PRN PRN Reason: NAUSEA/VOMITING Oxycodone HCl (Oxyir) 5 mg PO Q8H PRN PRN PRN Reason: Pain Score 6-10/10 Last Admin: 10/29/19 08:36 Dose: 5 mg Documented by: Pantoprazole Sodium (Protonix) 20 mg PO DAILY [facility] Last Admin: 10/31/19 09:15 Dose: 20 mg Documented by: Senna/Docusate Sodium (Senokot-S, Inocencia-Colace) 2 tablet PO BID PRN PRN PRN Reason: Constipation Sevelamer Carbonate (Renvela) 1,600 mg PO TIDCM [facility] Last Admin: 10/31/19 09:14 Dose: 1,600 mg Documented by: Sodium Chloride () 10 - 40 ml IV UD PRN PRN Reason: SALINE FLUSH Last Admin: 10/29/19 00:00 Dose: 10 ml Documented by: Tamsulosin HCl (Flomax) 0.4 mg PO BID [facility] Last Admin: 10/31/19 09:14 Dose: 0.4 mg Documented by: Discharge Diet: Renal Diet Discharge Activity: Return to Normal Activity Weight Bearing Status: Weight bearing as tolerated Call your doctor if you observe: Fever of 101 or Higher, Shortness of breath, Dizziness, Fainting spells Home Medications: Medications to take at Discharge Tamsulosin HCl [Flomax] 0.4 mg PO BID 10/23/16 Midodrine HCl [Proamatine] 10 mg PO MOWEFR 06/17/18 Sevelamer Carbonate [Renvela] 1,600 mg PO TID 08/12/19 Dicyclomine HCl 20 mg PO TID 10/27/19 Furosemide [Lasix] 80 mg PO BID 10/27/19 Metoprolol Tartrate [Lopressor (beta minoo)] 50 mg PO BID 10/27/19 Omeprazole 20 mg PO DAILY 10/27/19 Primary Care Physician: Talampas,Dona D, MD [Primary Care Provider] - Please follow up with your Primary Care Physician in: one week Please Follow Up With: Dona Santiago MD Please Follow Up With: Rafita Brewer MD When: 1-2 weeks Please Follow Up With: Williams Pena DO When: 1-2 weeks Disposition: Intermediate facility Minutes spent on discharge:: 40 Patient Condition:: Poor Medical Necessity - Tobacco Use Smoking Status: Never smoker Meaningful Use Info Meaningful Use Diagnoses (Choose all that apply): None applicable Code Visit Inpatient E&M: 83389 Disch Hosp
--- NOTE | 2019-10-31 10:58 | CASEMGMT ---
Addendum entered by Bernice Roa 10/31/19 15:17: Transportation arranged for 7:30 brass pickler by [facility]. Mj, RN and pt all notified of d/c time. SHARON Barrera Original Note: Social Work Pt ready for d/c today to [facility] at [place]. [address] completed and orders faxed to Charley at [facility] and VM left. Pt to receive dialysis today and then will discharge using [facility]. Phone call to pt and she is agreeable with discharge after dialysis. Plan: D/C to [facility] today after dialysis. SHARON Barrera
--- NOTE | 2019-10-31 11:09 | PHA.DC.MR ---
Pharmacy Service has performed discharge medication reconciliation for this patient upon transfer to [facility]. The patient's discharge medication list was reviewed for discrepancies and discrepancies were resolved. Home Medications Tamsulosin HCl [Flomax] 0.4 mg PO BID 10/23/16 Midodrine HCl [Proamatine] 10 mg PO MOWEFR 06/17/18 Sevelamer Carbonate [Renvela] 1,600 mg PO TID 08/12/19 Dicyclomine HCl 20 mg PO TID 10/27/19 Furosemide [Lasix] 80 mg PO BID 10/27/19 Metoprolol Tartrate [Lopressor (beta keila)] 50 mg PO BID 10/27/19 Omeprazole 20 mg PO DAILY 10/27/19
--- NOTE | 2019-10-31 13:22 | PCM.PROGNOTE ---
Patient Problems: Active and Suspected Problems (Last Reviewed 08/18/19 @ 06:23 by Al Gatica MD) Adult failure to thrive (Acute) Lactic acidosis (Acute) Hypotensive episode (Acute) Subjective: No chest pain no shortness of breath no other complaints - Physical Exam Vitals/I&O's: Vital Signs Temp Pulse Resp BP Pulse Ox 98.3 F 60 16 103/56 L 96 10/31/19 09:09 10/31/19 09:15 10/31/19 09:09 10/31/19 09:15 10/31/19 09:09 Oxygen Delivery Method Room Air Weight: 80.7 kg Body Mass Index (BMI) 33.5 Finger Stick Blood Glucose 116 Intake and Output for Last 24 Hours 10/29/19 10/30/19 10/31/19 23:59 23:59 23:59 Intake Total 5168 / 5288 670 / 670 Output Total 250 / 250 120 / 220 100 / 100 Balance 4918 / 5038 550 / 450 -100 / -100 General: Alert, Oriented x3, Cooperative HEENT: Atraumatic, PERRLA, EOMI, Normocephalic Neck: Supple, No JVD, Negative Carotid Bruits Lungs: Clear to auscultation, Normal air movement Cardiovascular: Regular rate, No murmurs Abdomen: Bowel Sounds Present, Soft, Non Tender, Obese Extremities: No edema, Capillary Refill Less than 3 Seconds Skin: No rashes, No breakdown Musculoskeletal: No Tenderness to Palpation of Joints or Extremities Neurological: Cranial nerves II-XII grossly intact Psych/Mental Status: Normal Affect, Appropriate Laboratory Results 10/31/19 05:55: WBC 7.2, RBC 3.20 L, Hgb 10.0 L, Hct 30.7 L, MCV 95.9 H, MCH 31.3, MCHC 32.6, RDW Std Deviation 54.5 H, RDW Coeff of Cari 15.5 H, Plt Count 114 L, MPV 9.4, Immature Gran % (Auto) 1.100 H, Neut % (Auto) 75.3 H, Lymph % (Auto) 10.8 L, Jennings % (Auto) 11.2 H, Eos % (Auto) 1.5, Baso % (Auto) 0.1, Absolute Neuts (auto) 5.4, Absolute Lymphs (auto) 0.77 L, Nucleated RBC % 0 10/31/19 05:55: Sodium 132 L, Potassium 3.9, Chloride 98, Carbon Dioxide 29.0, BUN 37 H, Creatinine 4.82 H, Estim Creat Clear Calc 9.04, Est GFR (MDRD) Af Amer 15 L, Est GFR (MDRD) Non-Af 12 L, BUN/Creatinine Ratio 7.7 L, Glucose 76, Calcium 10.3 H, Phosphorus 4.2, Albumin 2.1 L Current Medications Acetaminophen (Tylenol) 650 mg PO Q6H PRN PRN PRN Reason: Pain Score 1-3/Temp > 100.7 F Last Admin: 10/29/19 06:20 Dose: 650 mg Documented by: Albuterol Sulfate (Ventolin Aerosols) 2.5 mg INHALATION Q2H PRN PRN PRN Reason: SOB/Wheezing Dicyclomine HCl (Bentyl) 20 mg PO TIDAC [facility] Last Admin: 10/31/19 12:37 Dose: 20 mg Documented by: Furosemide (Lasix) 80 mg PO BIDLX [facility] Last Admin: 10/31/19 09:14 Dose: 80 mg Documented by: Glucagon () 1 mg IM .X1 PRN PRN Reason: Hypoglycemia Heparin Sodium (Porcine) (Heparin Na) 5,000 unit SC Q8 [facility] Last Admin: 10/31/19 06:11 Dose: 5,000 unit Documented by: Sodium Chloride () 250 mls @ 15 mls/hr IV .[id number] PRN PRN Reason: Saline Flush Dextrose (Dextrose 10%-Water) 250 mls @ 999 mls/hr IV X1 PRN; Protocol PRN Reason: HYPOGLYCEMIA Metoprolol Tartrate (Lopressor (Beta Minoo)) 50 mg PO BID [facility] Last Admin: 10/31/19 09:15 Dose: Not Given Documented by: Midodrine (Proamatine) 10 mg PO MoWeFr@1000 [facility] Last Admin: 10/31/19 09:15 Dose: 10 mg Documented by: Nutritional Formula (Nepro Carb Steady) 120 ml PO 4X/DAY [facility] Last Admin: 10/31/19 09:16 Dose: Not Given Documented by: Ondansetron HCl (Zofran) 4 mg IV Q8H PRN PRN PRN Reason: NAUSEA/VOMITING Oxycodone HCl (Oxyir) 5 mg PO Q8H PRN PRN PRN Reason: Pain Score 6-10/10 Last Admin: 10/29/19 08:36 Dose: 5 mg Documented by: Pantoprazole Sodium (Protonix) 20 mg PO DAILY [facility] Last Admin: 10/31/19 09:15 Dose: 20 mg Documented by: Senna/Docusate Sodium (Senokot-S, Inocencia-Colace) 2 tablet PO BID PRN PRN PRN Reason: Constipation Sevelamer Carbonate (Renvela) 1,600 mg PO TIDCM [facility] Last Admin: 10/31/19 09:14 Dose: 1,600 mg Documented by: Sodium Chloride () 10 - 40 ml IV UD PRN PRN Reason: SALINE FLUSH Last Admin: 10/29/19 00:00 Dose: 10 ml Documented by: Tamsulosin HCl (Flomax) 0.4 mg PO BID [facility] Last Admin: 10/31/19 09:14 Dose: 0.4 mg Documented by: Medical Necessity - Tobacco Use Smoking Status: Never smoker Assessment/Plan All Active Problems (Last Reviewed 08/18/19 @ 06:23 by Al Gatica MD) Adult failure to thrive (Acute) Lactic acidosis (Acute) Hypotensive episode (Acute) ESRD Anemia CKD MBD Hypercalcemia History of lymphoma Fall continue Thursday schedule. UF as tolerated. Dialysis today Management of hypercalcemia as per hematology s/p Zometa 4mg Ca is 10.3 Continue Renvela Continue midodrine
[2019-10-31] MEDS: Metoprolol Tartrate 50 MG Tablet PO (21:21)
== END 2019-10-31 21:47 | disposition skilled nursing facility (03) | DRG 640 ==
LOC: ED 10:41 → PCU 13:27
PROVIDERS: Admitting Provider Internal Medicine; Emergency Provider Emergency Medicine; Family Provider Internal Medicine; PCP Internal Medicine; Referring Provider Internal Medicine; Visit Provider Student in an Organized Health Care Education/Training Program
DX: E83.52 Hypercalcemia (principal); N18.6 End stage renal disease; C85.10 Unspecified B-cell lymphoma, unspecified site; E87.2 Acidosis; Z99.2 Dependence on renal dialysis; Z91.15 Patient's noncompliance with renal dialysis; R29.6 Repeated falls; R53.81 Other malaise; N40.0 Benign prostatic hyperplasia without lower urinary tract symptoms; R62.7 Adult failure to thrive
CPT/HCPCS: 36415; 71045; 73600; 73620; 80048; 80053; 80069; 80076; 81001; 82330; 82962; 83605; 84100; 84484; 84550; 85025; 85610; 90937; 93005; 97162; 97166; 97530; 97535; 97802; 99285; J3489; J7050; A4216; G0257

== ENCOUNTER → 2019-11-12 15:49 | Outpatient (REF) | payer SELFPAY ==
[2019-10-27 14:05] VITALS: BMI 33.5
[2019-11-12 15:53] LABS: Bacteria 0 SEEN /hpf (None Seen); Mucous, Urine 0 SEEN /hpf (<or=2+)
[2019-11-12 16:10] LABS: Absolute Lymphocyte Count 0.59 X10^3/uL (0.83-4.51); Absolute Neutrophil Count 5.2 X10^3/uL (2.0-7.7); Basophil# 0.02 X10^3/uL; Basophil% 0.3 % (0-1); Eosinophil# 0.04 X10^3/uL; Eosinophils% 0.6 % (0-5); Hematocrit 34.9 % (40-54); Hemoglobin 11.2 g/dL (13.0-16.5); Lymphocyte # 0.59 X10^3/ul (4.0); Lymphocyte % 8.8 % (19-41); Mean Corp Hgb Conc 32.1 g/dL (32-36); Mean Corpuscular Hgb 31.2 pg (27.0-32.0); Mean Corpuscular Volume 97.2 fL (80-94); Monocyte% 11.9 % (0-10); NRBC Flagged by Analyzer 0 % (0-5); Neutrophil # 5.18 X10^3/uL (2.7-7.7); Neutrophil % 77.1 % (47-70); POSITIVE DIFFERENTIAL YES; Platelet Count 167 K/mm3 (150-450); RBC Distribution Width CV 14.8 % (11.6-14.6); Red Blood Count 3.59 M/mm3 (4.6-6.2); White Blood Count 6.7 K/mm3 (4.4-11.0)
[2019-11-12 16:27] LABS: Color, Urine Yellow (Yellow); Glucose, Dipstick 250 mg/dl (Normal); Ketone-Dipstick 5 mg/dl (Negative); Leukocyte Esterase-Dipstick Negative /ul (Negative); Nitrite-Dipstick Negative (Negative); Occult Blood-Urine Negative /ul (Negative); Protein-Dipstick 100 mg/dl (Negative); Urine Bilirubin Dipstick Negative (Negative); Urine Clarity Clear (Clear); Urine Urobilinogen Normal (Normal)
[2019-11-12 16:32] LABS: ALB/GLOB Ratio 0.8 RATIO (0.9-2.4); AST(SGOT) 17 U/L (15-37); Alanine Aminotransfer ALT/SGPT 12 U/L (16-61); Albumin, Serum 2.6 g/dL (3.2-5.0); Alkaline Phosphatase 90 U/L (45-117); Anion Gap 6 (5-15); BUN 33 mg/dL (7-18); BUN/Creat Ratio 6.2 RATIO (10-20); Calcium,Total 12.2 mg/dL (8.5-10.1); Chloride 100 mmol/L (98-107); Creatinine, Serum 5.29 mg/dL (0.70-1.30); EST Glomerular Filtration Rate 11 mL/min (>60); Est Glom Filt Rate - Afr Amer 14 mL/min (>60); Globulin 3.2 g/dL (2.2-4.2); Glucose 101 mg/dL (74-106); Magnesium 2.3 mg/dL (1.6-2.6); Potassium 4.3 mmol/L (3.5-5.1); Protein, Total 5.8 g/dL (6.4-8.2); Sodium Level 137 mmol/L (136-145)
[2019-11-12 16:37] LABS: Hyaline Cast 0-5 SEEN /lpf (0-5)
[2019-11-12 16:39] LABS: Red Blood Cells-Urine 0-5 SEEN /hpf (0-5); Squamous Epithelial Cells - UA 0-5 SEEN /hpf (0-5); White Blood Cells 0-5 SEEN /hpf (0-5)
[2019-11-12 16:40] LABS: Differential Indicated SCAN CRITERIA MET
[2019-11-12 16:51] LABS: Platelet Estimate ADEQUATE (ADEQ)
[2019-11-12 16:52] LABS: Anisocytosis RARE; Macrocytosis RARE; Red Cell Morphology N CHROM NORMAL (NORM C&C)
== END ==
LOC: OLS.AHA 15:49
PROVIDERS: Family Provider Internal Medicine; PCP Family Medicine; Visit Provider Family Medicine
DX: N17.9 Acute kidney failure, unspecified (principal); R44.3 Hallucinations, unspecified; C34.90 Malignant neoplasm of unspecified part of unspecified bronchus or lung; R11.2 Nausea with vomiting, unspecified
CPT/HCPCS: 80053; 81001; 83735; 85025